=== PATIENT | male | born 1950 | race Caucasian/White ===

== ENCOUNTER 2020-04-22 09:07 | Outpatient (REF) | payer MEDICARE, SELFPAY ==
[2020-04-22 10:18] LABS: MANUAL DIFF FLAG NO
[2020-04-22 10:24] LABS: Basophils Absolute Auto 0.1 X10*3/uL (0.0-0.2); Basophils Percent Auto 0.9 % (0-2); Eosinophils Absolute Auto 0.6 X10*3/uL (0.0-0.4); Eosinophils Percent Auto 4.8 % (0-4); Hematocrit 42.8 % (42-52); Hemoglobin 13.5 g/dl (14.0-18.0); Imm Gran Abs Auto 0.06 X10*3/uL (0.00-0.03); Imm Gran Pct Auto 0.5 % (0.0-0.4); Lymphocytes Absolute Auto 1.9 X10*3/uL (1.2-4.9); Lymphocytes Percent Auto 15.1 % (20-40); Mean Corpuscular HGB Conc 31.5 g/dl (31.0-36.0); Mean Corpuscular Hemoglobin 29.2 pg (27.0-33.0); Mean Corpuscular Volume 92.6 fL (80-98); Mean Platelet Volume 11.2 fL (9.4-12.4); Monocytes Percent Auto 7.9 % (2-11); Neutrophils Absolute Auto 8.9 X10*3/uL (2.0-8.3); Neutrophils Percent Auto 70.8 % (45-73); Platelet Count 252 X10*3/uL (160-400); Red Blood Count 4.62 X10*6/uL (4.60-5.80); Red Cell Distribution Width 13.3 % (11.0-16.0); White Blood Count 12.6 X10*3/uL (4.8-10.8)
[2020-04-22 11:00] LABS: Alanine Aminotransferase 16 U/L (0-40); Albumin Level 4.3 g/dL (3.5-5.0); Alkaline Phosphatase 83 U/L (39-117); Anion Gap 14 (12-20); Aspartate Amino Transferase 15 U/L (5-37); Bilirubin Total 0.2 mg/dL (0.0-1.0); Blood Urea Nitrogen 19 mg/dL (9-16); Calcium 9.4 mg/dL (8.4-10.2); Carbon Dioxide 38 mmol/L (22-29); Chloride 93 mmol/L (96-108); Cholesterol 237 mg/dL; Estimated Glomerular Filt Rate > 60; Glucose Fasting 104 mg/dL (60-99); HDL Cholesterol 40 mg/dL; LDL Cholesterol Calculated 151 mg/dl; Potassium 4.5 mmol/l (3.3-5.1); Sodium 140 mmol/L (135-145); Total Protein 6.7 g/dL (6.5-8.0); Triglycerides 231 mg/dL
== END 2020-04-22 09:08 | disposition home or self-care (01) ==
LOC: HO.LAB 09:07
PROVIDERS: PCP Internal Medicine; Visit Provider Internal Medicine
DX: E11.9 Type 2 diabetes mellitus without complications (principal); I48.91 Unspecified atrial fibrillation
CPT/HCPCS: 36415; 80053; 80061; 85025

== ENCOUNTER 2020-05-15 13:09 | Outpatient (REF) | payer MEDICARE, SELFPAY ==
--- NOTE | 2020-05-15 14:06 | XR_ITS ---
EXAMINATION: XR CHEST CLINICAL INFORMATION: COPD. COMPARISON: None TECHNIQUE: 2 views of the chest were obtained. FINDINGS: The lungs are well-expanded with right CP angle pleural thickening and right basilar atelectasis. Heart size and vascularity is normal. No gross bony abnormality seen. XR/XR chest 2V IMPRESSION: Mild right CP angle pleural thickening with right basilar atelectasis. No acute process seen in the chest.
== END 2020-05-15 13:10 | disposition home or self-care (01) ==
LOC: HO.XRAY 13:09
PROVIDERS: Absent Provider Internal Medicine; PCP Internal Medicine; Visit Provider Internal Medicine
DX: J44.9 Chronic obstructive pulmonary disease, unspecified (principal); R09.02 Hypoxemia; F17.210 Nicotine dependence, cigarettes, uncomplicated; I48.91 Unspecified atrial fibrillation; Z79.899 Other long term (current) drug therapy; Z99.81 Dependence on supplemental oxygen
CPT/HCPCS: 71046

== ENCOUNTER 2020-05-28 10:50 | Outpatient (REF) | payer BC, SELFPAY ==
--- NOTE | 2020-05-28 17:27 | PFT_ITS ---
FLOWS: FEV1 of 36% of predicted at 1.12 L. FVC 79% of predicted at 3.31 L. FEV1 to FVC ratio of 0.34. Positive bronchodilator response. LUNG VOLUMES: Total lung capacity 107% of predicted at 7.15 L. Residual volume 173% of predicted at 3.98 L. Slow vital capacity 73% of predicted at 3.16 L. Expiratory reserve volume 117% of predicted at 1.39 L. Diffusion capacity is severely decreased, diffusion capacity adjust to being moderately decreased after correction for alveolar ventilation. IMPRESSION: Severe to very severe obstructive ventilatory defect with positive bronchodilator response. Increased residual volume suggests air trapping. Decreased diffusion capacity suggests emphysema. Ino Chávez MD AP/MOD[facility] / [id number]
== END 2020-05-28 10:51 | disposition home or self-care (01) ==
LOC: HO.RESP 10:50
PROVIDERS: PCP Internal Medicine; Visit Provider Internal Medicine
DX: J44.9 Chronic obstructive pulmonary disease, unspecified (principal)
CPT/HCPCS: 94060; 94727; 94729

== ENCOUNTER → 2020-06-05 13:35 | Outpatient (BNVA) | payer BC, SELFPAY | PROVIDERS: PCP Internal Medicine; Visit Provider Internal Medicine | DX: Z13.89 Encounter for screening for other disorder (principal) ==

== ENCOUNTER 2020-06-28 08:47 | Outpatient (REF) | payer MEDICARE, SELFPAY ==
--- NOTE | 2020-06-28 08:54 | US_ITS ---
EXAMINATION: US ABDOMEN COMPLETE CLINICAL INFORMATION: Abdominal pain. COMPARISON: CT abdomen and pelvis 11/17/2019 TECHNIQUE: Real-time imaging of the abdominal viscera. FINDINGS: PANCREAS: Normal. ABDOMINAL AORTA: The proximal, mid, and distal segments are normal in caliber. INFERIOR VENA CAVA: Visualized portions are normal. LIVER: The liver is normal in size. The liver contour is normal. Parenchymal echogenicity is normal. No focal hepatic lesion. There is no intrahepatic biliary duct dilatation seen. GALLBLADDER: The gallbladder is distended with wall thickness measuring 0.19 cm. The gallbladder is physiologically distended without evidence of stones, sludge, polyps, wall thickening or pericholecystic fluid. COMMON BILE DUCT: Normal in caliber measuring 0.40 cm in diameter. RIGHT KIDNEY: Normal. No hydronephrosis. No renal calculi or focal parenchymal lesions. The kidney measures 10.9 cm in maximum dimension. LEFT KIDNEY: Normal. No hydronephrosis. No renal calculi or focal parenchymal lesions. The kidney measures 11.1 cm in maximum dimension. SPLEEN: Normal. The spleen measures 9.1 cm in maximum dimension. FREE FLUID: None. US/US abdomen complete IMPRESSION: Distended gallbladder without echogenic stones. The rest of the abdominal ultrasound is unremarkable.
[2020-06-28 11:49] LABS: Basophils Absolute Auto 0.1 X10*3/uL (0.0-0.2); Basophils Percent Auto 0.5 % (0-2); Eosinophils Absolute Auto 0.1 X10*3/uL (0.0-0.4); Eosinophils Percent Auto 0.5 % (0-4); Hematocrit 30.1 % (42-52); Hemoglobin 9.4 g/dl (14.0-18.0); Lymphocytes Absolute Auto 1.5 X10*3/uL (1.2-4.9); Lymphocytes Percent Auto 7.5 % (20-40); MANUAL DIFF FLAG SCAN; Mean Corpuscular HGB Conc 31.2 g/dl (31.0-36.0); Mean Corpuscular Hemoglobin 28.7 pg (27.0-33.0); Mean Platelet Volume 11.5 fL (9.4-12.4); Monocytes Absolute Auto 1.6 X10*3/uL (0.1-1.2); Neutrophils Absolute Auto 16.3 X10*3/uL (2.0-8.3); Neutrophils Percent Auto 82.5 % (45-73); Platelet Count 367 X10*3/uL (160-400); Red Blood Count 3.27 X10*6/uL (4.60-5.80); Red Cell Distribution Width 14.2 % (11.0-16.0); SCAN SMEAR FLAG 1; White Blood Count 19.7 X10*3/uL (4.8-10.8)
[2020-06-28 12:13] LABS: Anion Gap 18 (12-20); Blood Urea Nitrogen 45 mg/dL (9-16); Calcium 8.5 mg/dL (8.4-10.2); Carbon Dioxide 28 mmol/L (22-29); Chloride 95 mmol/L (96-108); Estimated Glomerular Filt Rate 47; Glucose Random 106 mg/dL (60-115); Potassium 5.1 mmol/l (3.3-5.1); Sodium 136 mmol/L (135-145)
[2020-06-28 12:35] LABS: SLIDE REVIEW VERIFIED
[2020-06-28 14:06] LABS: Glucose Urine UA NEG (NEG); Leukocyte Esterase Urine NEG (NEG); Nitrite Urine NEG (NEG); Specific Gravity - Urine 1.025 (1.005-1.025); Urine Blood NEG (NEG); Urine Ketones 5 MG/DL (NEG); Urine Protein NEG (NEG-TRACE)
[2020-06-28 14:19] LABS: Appearance Urine CLEAR; Color Urine YELLOW
== END 2020-06-28 08:48 | disposition home or self-care (01) ==
LOC: HO.HMGCX 08:47
PROVIDERS: PCP Internal Medicine; Visit Provider Internal Medicine
DX: Z00.00 Encounter for general adult medical examination without abnormal findings (principal); N39.0 Urinary tract infection, site not specified; R10.9 Unspecified abdominal pain; R51.9 Headache, unspecified
CPT/HCPCS: 36415; 76700; 80048; 81003; 85025

== ENCOUNTER 2020-07-01 08:35 | Inpatient (IN) | payer MEDICARE, SELFPAY ==
[2020-07-01] VITALS (26 sets, daily range): BP systolic 83–128; BP diastolic 28–65; PULSE 27–88; RESP 16–79; TEMP 36.1–37.2; O2SAT 80–100; BMI 28.3
--- NOTE | 2020-07-01 | XR_ITS ---
EXAMINATION: PORTABLE CHEST 1 VIEW CLINICAL INFORMATION: Pacemaker . COMPARISON: 07/01/2020. TECHNIQUE: Portable frontal view of the chest was obtained. FINDINGS: Lungs are mildly hypoexpanded with basilar markings more likely reflecting a component of atelectasis superimposed overlying soft tissues. The hand and arm overlie the basilar chest on this view. Tiny right effusion is likely present, similar to earlier today. No overt edema or pneumothorax. Cardiac and mediastinal silhouettes within normal limits for size with vascular calcification in the tortuous aorta. There is been interval placement of a dual lead pacemaker with lead tips overlying the expected right atrium and right ventricle. Degenerative changes in the spine and shoulders. XR/XR chest 1V IMPRESSION: New dual-lead pacemaker is described. Basilar markings likely reflecting some atelectasis and tiny right effusion.
--- NOTE | 2020-07-01 08:55 | XR_ITS ---
EXAMINATION: XR CHEST CLINICAL INFORMATION: Shortness of breath COMPARISON: Previous chest x-ray May 2020 TECHNIQUE: Multiple AP supine portable chest x-rays were performed during advancement of pacemaker. FINDINGS: There is a right jugular line. There is an external temporary pacemaker lead projecting over the cardiac apex on the most final image. The heart is enlarged. Hilar and mediastinal contours are unremarkable. There is a subsegmental atelectasis at the right lung base. Left lung is partially obscured due to chest wall pacemaker has but appears clear. There is blunting at the right lateral costophrenic angle questionable for a small right pleural effusion. There is no pneumothorax. XR/XR chest 1V IMPRESSION: Right jugular pacemaker lead projects over the ventricular apex. Enlarged cardiac silhouette. Atelectasis at the right lung base and small right pleural effusion. No pneumothorax.
--- NOTE | 2020-07-01 08:55 | ECG_ITS ---
Test Reason : WEAKNESS Blood Pressure : / mmHG Vent. Rate : 030 BPM Atrial Rate : 032 BPM P-R Int : 000 ms QRS Dur : 138 ms QT Int : 602 ms P-R-T Axes : 000 -64 004 degrees QTc Int : 425 ms Idioventricular rhythm Sinus rhythm with complete Heart block Abnormal ECG When compared with ECG of 17-NOV-2019 10:51, Idioventricular rhythm has replaced Atrial fibrillation Vent. rate has decreased BY 70 BPM Referred By: Surekha Fernandez Electronically Signed By:BECK GUZMAN
[2020-07-01] MEDS: Magnesium Sulfate/H2O 2 GM/50 ML PIGGYBACK IV (09:15)
[2020-07-01] MEDS: Calcium Gluconate/NaCl,Iso-Osm 2 GM/100 ML PLAST..BAG IV (09:15)
[2020-07-01 09:24] LABS: MANUAL DIFF FLAG NO
[2020-07-01 09:26] LABS: Basophils Absolute Auto 0.2 X10*3/uL (0.0-0.2); Eosinophils Absolute Auto 0.3 X10*3/uL (0.0-0.4); Eosinophils Percent Auto 1.7 % (0-4); Hematocrit 26.9 % (42-52); Hemoglobin 8.5 g/dl (14.0-18.0); Imm Gran Abs Auto 0.19 X10*3/uL (0.00-0.03); Imm Gran Pct Auto 1.2 % (0.0-0.4); Lymphocytes Absolute Auto 1.8 X10*3/uL (1.2-4.9); Mean Corpuscular HGB Conc 31.6 g/dl (31.0-36.0); Mean Corpuscular Hemoglobin 29.6 pg (27.0-33.0); Mean Corpuscular Volume 93.7 fL (80-98); Mean Platelet Volume 11.1 fL (9.4-12.4); Monocytes Absolute Auto 1.2 X10*3/uL (0.1-1.2); Monocytes Percent Auto 7.8 % (2-11); Neutrophils Absolute Auto 11.7 X10*3/uL (2.0-8.3); Neutrophils Percent Auto 76.3 % (45-73); Platelet Count 464 X10*3/uL (160-400); Red Blood Count 2.87 X10*6/uL (4.60-5.80); Red Cell Distribution Width 14.5 % (11.0-16.0); White Blood Count 15.3 X10*3/uL (4.8-10.8)
[2020-07-01 09:31] LABS: INTERNATIONAL NORM RATIO 2.1 (0.9-1.1); Prothrombin Time 24.9 SEC (10.8-13.0)
[2020-07-01 09:34] LABS: Partial Thromboplastin Time 42.6 SEC (24.1-38.0)
[2020-07-01 09:51] LABS: Alanine Aminotransferase 64 U/L (0-40); Albumin Level 3.5 g/dL (3.5-5.0); Alkaline Phosphatase 108 U/L (39-117); Anion Gap 20 (12-20); Aspartate Amino Transferase 33 U/L (5-37); Bilirubin Direct 0.2 mg/dL (0.0-0.5); Bilirubin Total 0.3 mg/dL (0.0-1.0); Blood Urea Nitrogen 66 mg/dL (9-16); Calcium 8.6 mg/dL (8.4-10.2); Carbon Dioxide 24 mmol/L (22-29); Chloride 97 mmol/L (96-108); Estimated Glomerular Filt Rate 40; Glucose Random 144 mg/dL (60-115); Lactate Dehydrogenase 136 U/L (118-273); Lipase 9 U/L (8-78); Magnesium 2.8 mg/dL (1.6-2.6); Potassium 5.5 mmol/l (3.3-5.1); Sodium 135 mmol/L (135-145); Total Protein 6.3 g/dL (6.5-8.0)
[2020-07-01 09:54] LABS: B Type Natriuretic Peptide 2610 pg/mL (<100); Troponin-I High Sensitivity 32.2 ng/L (<3.5-35.0)
[2020-07-01 09:56] LABS: Lactic Acid 3.4 mmol/L (0.5-2.0)
[2020-07-01 10:07] LABS: Influenza A PCR NEGATIVE (Negative); Influenza B PCR NEGATIVE (Negative); Resp Syncy Virus RNA Qual PCR NEGATIVE (Negative); SARS COV2 PCR INHOUSE NEGATIVE (Negative)
--- NOTE | 2020-07-01 10:07 | ED.SOB ---
HPI - SOB/Dyspnea General Chief Complaint: Recheck/Abnormal Lab/Rx <JOHNNIE Kong - Last Filed: 07/01/20 11:02> Stated Complaint: DIFF BREATHING,ANEMIC <JOHNNIE Kong - Last Filed: 07/01/20 11:02> Time Seen by Provider: 07/01/20 08:45 <JOHNNIE Kong - Last Filed: 07/01/20 11:02> Source: patient <JOHNNIE Kong - Last Filed: 07/01/20 11:02> Mode of arrival: ambulatory <JOHNNIE Kong - Last Filed: 07/01/20 11:02> History of Present Illness HPI Narrative: 70-year-old male with a past medical history of AFib on Eliquis a/P ablation at [facility] 3 months ago, COPD on home O2, hypoxemia, presenting to the ED complaining worsening SOB x6 months. Admits saw PCP few days ago on was instructed to come to the ED due to anemia/abnormal labs. Reports chronic cough. Denies fever, recent illness, chest pain, abdominal pain, nausea/vomiting, LE edema, recent travel, melena/bloody BMs, hematochezia <JOHNNIE Kong - Last Filed: 07/01/20 11:02> MD elicited complaint: shortness of breath <JOHNNIE Kong Last Filed: 07/01/20 11:02> Related Data Home Medications: Home Medications Medication Instructions Recorded Confirmed albuterol sulfate 90 mcg/actuation 2 puff INHALATION Q4H PRN 04/19/20 07/01/20 aerosol inhaler apixaban 5 mg tablet 5 mg PO BID 04/19/20 07/01/20 budesonide-formoterol HFA 80 2 inh INHALATION BID 04/19/20 07/01/20 mcg-4.5 mcg/actuation aerosol inhaler magnesium oxide 400 mg (241.3 mg 400 mg PO DAILY 04/19/20 07/01/20 magnesium) tablet metoprolol tartrate 50 mg tablet 75 mg PO TID 04/19/20 07/01/20 spironolactone 25 mg tablet 12.5 mg PO DAILY 04/19/20 07/01/20 tiotropium bromide 18 mcg capsule 1 cap INHALATION DAILY 04/19/20 07/01/20 with inhalation device torsemide 20 mg tablet 60 mg PO BID 04/19/20 07/01/20 lisinopril 5 mg tablet 2.5 mg PO DAILY tab 05/15/20 07/01/20 multivitamin 1 tab PO DAILY 06/05/20 07/01/20 Previous Rx's Medication Instructions Recorded varenicline 1 mg tablet 1 mg PO BID 28 Days #56 tab 06/05/20 dicyclomine 20 mg tablet 20 mg PO QID #30 tab 06/17/20 <JOHNNIE Kong - Last Filed: 07/01/20 11:02> Allergies/Adverse Reactions: Allergies Allergy/AdvReac Type Severity Reaction Status Date / Time No Known Allergies Allergy Verified 06/05/20 13:37 [No Known Allergies*] <JOHNNIE Kong Last Filed: 07/01/20 11:02> Review of Systems Review of Systems: Constitutional: No Weight loss, No Fever, No Chills, + Fatigue, No Malaise Cardiovascular: No Chest Pain, + SOB, + Dyspnea on Exertion, + Orthopnea Respiratory: + Cough, No Sputum, + Wheezing, +Dyspnea Gastrointestinal: No Nausea, No Vomiting, No Diarrhea, No Constipation, No Abdominal pain Genitourinary: No irregular bleeding, No Dysuria Musculoskeletal: No joint pain, No Myalgias, No Joint Swelling Skin: No Skin Lesions, No rash <JOHNNIE Kong Last Filed: 07/01/20 11:02> Yes all other systems are reviewed and are negative <JOHNNIE Kong Last Filed: 07/01/20 11:02> [facility] Past Medical History Attestation statement: The following information was validated with the patient. <JOHNNIE Kong - Last Filed: 07/01/20 11:02> Medical History: Medical History Atrial fibrillation COPD (chronic obstructive pulmonary disease) COPD (chronic obstructive pulmonary disease) Hypoxemia Paroxysmal atrial fibrillation Smoker <JOHNNIE Kong - Last Filed: 07/01/20 11:02> Family History Family History: Family History Father No problems noted. Mother No problems noted. <JOHNNIE Kong Last Filed: 07/01/20 11:02> Social History Social History: Social History Alcohol intake: current Alcohol intake frequency: a few times a month Smoking Status: Current every day smoker Tobacco Type: Cigarette Cigarettes Per Day: 10 Advance Directives: No Advance Directives Information Provided: No <JOHNNIE Kong - Last Filed: 07/01/20 11:02> Physical Exam Vital Signs: Vital Signs: Last Vital Signs Temp 97 F 07/01/20 08:45 Pulse 28 L 07/01/20 08:45 Resp 32 H 07/01/20 08:45 BP 98/28 L 07/01/20 08:45 Pulse Ox 80 L 07/01/20 08:45 Body Mass Index 28.3 <JOHNNIE Kong - Last Filed: 07/01/20 11:02> Vital Signs: Last Vital Signs Temp 97 F 07/01/20 08:45 Pulse 28 L 07/01/20 08:45 Resp 32 H 07/01/20 08:45 BP 98/28 L 07/01/20 08:45 Pulse Ox 80 L 07/01/20 08:45 Body Mass Index 28.3 <Kalie Garcia DO - Last Filed: 07/01/20 11:08> Const: General: cooperative <JOHNNIE Kong - Last Filed: 07/01/20 11:02> Orientation/consciousness: patient oriented x3 <JOHNNIE Kong - Last Filed: 07/01/20 11:02> Limitations: no limitations <JOHNNIE Kong - Last Filed: 07/01/20 11:02> HENMT: Head: Yes normal to inspection <JOHNNIE Kong - Last Filed: 07/01/20 11:02> Ears: hearing grossly normal bilaterally <JOHNNIE Kong - Last Filed: 07/01/20 11:02> General nose exam: Normal external nose present <JOHNNIE Kong - Last Filed: 07/01/20 11:02> Face and sinus: Yes normal facial exam <JOHNNIE Kong - Last Filed: 07/01/20 11:02> Eyes: General: appearance normal, both eyes and all related structures <JOHNNIE Kong - Last Filed: 07/01/20 11:02> EOM: EOMs intact bilaterally <Surekha Fernandez PA - Last Filed: 07/01/20 11:02> Neck: Neck: Yes normal visual inspection and Yes no meningeal signs <Surekha Fernandez PA - Last Filed: 07/01/20 11:02> Resp: Effort & Inspection: labored and tachypneic <Surekha Fernandez PA - Last Filed: 07/01/20 11:02> Auscultation: wheezes expiratory wheezes and diminished lung sounds diffuse <Surekha Fernandez PA - Last Filed: 07/01/20 11:02> Cardio: Rate: bradycardic <Surekha Fernandez UT - Last Filed: 07/01/20 11:02> GI: Inspection: Yes normal to inspection <Surekha Fernandez [place] - Last Filed: 07/01/20 11:02> Palpation (GI): Soft to palpation, nontender, no guarding and not rigid <Surekha Fernandez UT - Last Filed: 07/01/20 11:02> Skin: Rashes: no rashes <Surekha Fernandez UT - Last Filed: 07/01/20 11:02> Wounds: no wounds <Surekha Fernandez UT - Last Filed: 07/01/20 11:02> Neuro: General: patient oriented x3 and no meningeal signs <Surekha Fernandez UT - Last Filed: 07/01/20 11:02> Gait exam (Neuro): Normal gait present <Surekha Fernandez UT - Last Filed: 07/01/20 11:02> Extrem: Other: No LE edema <Surekha Fernandez UT - Last Filed: 07/01/20 11:02> Course Course Course Narrative: Case discussed with Cardiology, Dr. Shukla immediately after EKG printed. he is evaluating patient in the emergency department along with ICU attending Dr. Taylor. Patient's blood pressure initially stable then dropped, 0.5 mg of atropine ordered, ED attending placing transvenous pacer <Surekha Fernandez UT - Last Filed: 07/01/20 11:02> Procedures Procedure Narrative Procedure Narrative: emergently placed R IJ catheter under US guidance and full sterile precautions - no issues tolerated well, then with ICU at bedside used transvenous wire and placed at 47cm with good capture at 80 balloon deflated - BP improved, repeat CXR to confirm placement done, no complications, biopatch and sterile dressing placed <Kalie Garcia DO - Last Filed: 07/01/20 11:08> MDM - SOB/Dyspnea MDM Narrative Medical decision making narrative: 70-year-old male with a past medical history of AFib on Eliquis a/P ablation at [facility] 3 months ago, COPD on home O2, hypoxemia, presenting to the ED complaining worsening SOB x6 months. On exam in mild respiratory distress with tachypnea, decreased breath sounds/expiratory wheeze, heart rate low in 30s, EKG showing a third-degree heart block. Cardiology immediately paged. Patient placed on monitor IV glucose chin and calcium gluconate ordered. Concern for arrhythmia with superimposed COPD exacerbation. Lower concern for GI bleed Plan: EKG, labs, CXR, IV Solu-Medrol/magnesium/DuoNeb <JOHNNIE Kong - Last Filed: 07/01/20 11:02> Differential Diagnosis Differential diagnosis: Likely acute exacerbation of chronic obstructive airways disease, congestive heart failure and pneumonia <JOHNNIE Kong - Last Filed: 07/01/20 11:02> Medical Records Attestation: I reviewed the patient's medical records. <JOHNNIE Kong - Last Filed: 07/01/20 11:02> Lab Data Attestation: I reviewed the patient's lab results. <JOHNNIE Kong - Last Filed: 07/01/20 11:02> Result diagrams: : 07/01/20 09:12 07/01/20 09:12 <JOHNNIE Kong - Last Filed: 07/01/20 11:02> Labs: Lab Results 07/01/20 07/01/20 07/01/20 Range/Units 09:10 09:10 09:12 WBC 15.3 H (4.8-10.8) X10*3/uL RBC 2.87 L (4.60-5.80) X10*6/uL Hgb 8.5 L (14.0-18.0) g/dl Hct 26.9 L (42-52) % MCV 93.7 (80-98) fL MCH 29.6 (27.0-33.0) pg MCHC 31.6 (31.0-36.0) g/dl RDW 14.5 (11.0-16.0) % Plt Count 464 H D (160-400) X10*3/uL MPV 11.1 (9.4-12.4) fL Immature Gran % (Auto) 1.2 H (0.0-0.4) % Neut % (Auto) 76.3 H (45-73) % Lymph % (Auto) 12.0 L (20-40) % [place] % (Auto) 7.8 (2-11) % Eos % (Auto) 1.7 (0-4) % Baso % (Auto) 1.0 (0-2) % Lymph # (Auto) 1.8 (1.2-4.9) X10*3/uL [place] # (Auto) 1.2 (0.1-1.2) X10*3/uL Eos # (Auto) 0.3 (0.0-0.4) X10*3/uL Baso # (Auto) 0.2 (0.0-0.2) X10*3/uL Abs Immat Gran (auto) 0.19 H (0.00-0.03) X10*3/uL Absolute Neuts (auto) 11.7 H (2.0-8.3) X10*3/uL Absolute Nucleated RBC 0.000 (0.0-0.012) X10*3/uL Nucleated RBC % (auto) 0.0 (0.0-0.2) /100WBC PT 24.9 H (10.8-13.0) SEC INR 2.1 H (0.9-1.1) APTT 42.6 H (24.1-38.0) SEC Sodium (135-145) mmol/L Potassium (3.3-5.1) mmol/l Chloride (96-108) mmol/L Carbon Dioxide (22-29) mmol/L Anion Gap (12-20) BUN (9-16) mg/dL Creatinine (0.5-1.4) mg/dL Estim Creat Clear Calc Estimated GFR Random Glucose (60-115) mg/dL Lactic Acid (0.5-2.0) mmol/L Calcium (8.4-10.2) mg/dL Magnesium (1.6-2.6) mg/dL Ferritin (20-250) ng/mL Total Bilirubin (0.0-1.0) mg/dL Direct Bilirubin (0.0-0.5) mg/dL AST (5-37) U/L ALT (0-40) U/L Alkaline Phosphatase (39-117) U/L Lactate Dehydrogenase (118-273) U/L Troponin I High Sens (<3.5-35.0) ng/L B-Natriuretic Peptide (<100) pg/mL Total Protein (6.5-8.0) g/dL Albumin (3.5-5.0) g/dL Lipase (8-78) U/L Procalcitonin 0.22 ng/mL Coronavirus (PCR) (Negative) Influenza Type A (PCR) (Negative) Influenza Type B (PCR) (Negative) RSV RNA Qual (PCR) (Negative) 07/01/20 07/01/20 07/01/20 Range/Units 09:12 09:12 09:12 WBC (4.8-10.8) X10*3/uL RBC (4.60-5.80) X10*6/uL Hgb (14.0-18.0) g/dl Hct (42-52) % MCV (80-98) fL MCH (27.0-33.0) pg MCHC (31.0-36.0) g/dl RDW (11.0-16.0) % Plt Count (160-400) X10*3/uL MPV (9.4-12.4) fL Immature Gran % (Auto) (0.0-0.4) % Neut % (Auto) (45-73) % Lymph % (Auto) (20-40) % [place] % (Auto) (2-11) % Eos % (Auto) (0-4) % Baso % (Auto) (0-2) % Lymph # (Auto) (1.2-4.9) X10*3/uL [place] # (Auto) (0.1-1.2) X10*3/uL Eos # (Auto) (0.0-0.4) X10*3/uL Baso # (Auto) (0.0-0.2) X10*3/uL Abs Immat Gran (auto) (0.00-0.03) X10*3/uL Absolute Neuts (auto) (2.0-8.3) X10*3/uL Absolute Nucleated RBC (0.0-0.012) X10*3/uL Nucleated RBC % (auto) (0.0-0.2) /100WBC PT (10.8-13.0) SEC INR (0.9-1.1) APTT (24.1-38.0) SEC Sodium 135 (135-145) mmol/L Potassium 5.5 H (3.3-5.1) mmol/l Chloride 97 (96-108) mmol/L Carbon Dioxide 24 (22-29) mmol/L Anion Gap 20 (12-20) BUN 66 H (9-16) mg/dL Creatinine 1.72 H (0.5-1.4) mg/dL Estim Creat Clear Calc TNP Estimated GFR 40 Random Glucose 144 H D (60-115) mg/dL Lactic Acid 3.4 H* (0.5-2.0) mmol/L Calcium 8.6 (8.4-10.2) mg/dL Magnesium 2.8 H (1.6-2.6) mg/dL Ferritin (20-250) ng/mL Total Bilirubin 0.3 (0.0-1.0) mg/dL Direct Bilirubin 0.2 (0.0-0.5) mg/dL AST 33 D (5-37) U/L ALT 64 H (0-40) U/L Alkaline Phosphatase 108 D (39-117) U/L Lactate Dehydrogenase 136 (118-273) U/L Troponin I High Sens 32.2 (<3.5-35.0) ng/L B-Natriuretic Peptide 2610 H (<100) pg/mL Total Protein 6.3 L (6.5-8.0) g/dL Albumin 3.5 (3.5-5.0) g/dL Lipase 9 (8-78) U/L Procalcitonin ng/mL Coronavirus (PCR) (Negative) Influenza Type A (PCR) (Negative) Influenza Type B (PCR) (Negative) RSV RNA Qual (PCR) (Negative) 07/01/20 07/01/20 Range/Units 09:12 09:12 WBC (4.8-10.8) X10*3/uL RBC (4.60-5.80) X10*6/uL Hgb (14.0-18.0) g/dl Hct (42-52) % MCV (80-98) fL MCH (27.0-33.0) pg MCHC (31.0-36.0) g/dl RDW (11.0-16.0) % Plt Count (160-400) X10*3/uL MPV (9.4-12.4) fL Immature Gran % (Auto) (0.0-0.4) % Neut % (Auto) (45-73) % Lymph % (Auto) (20-40) % [place] % (Auto) (2-11) % Eos % (Auto) (0-4) % Baso % (Auto) (0-2) % Lymph # (Auto) (1.2-4.9) X10*3/uL [place] # (Auto) (0.1-1.2) X10*3/uL Eos # (Auto) (0.0-0.4) X10*3/uL Baso # (Auto) (0.0-0.2) X10*3/uL Abs Immat Gran (auto) (0.00-0.03) X10*3/uL Absolute Neuts (auto) (2.0-8.3) X10*3/uL Absolute Nucleated RBC (0.0-0.012) X10*3/uL Nucleated RBC % (auto) (0.0-0.2) /100WBC PT (10.8-13.0) SEC INR (0.9-1.1) APTT (24.1-38.0) SEC Sodium (135-145) mmol/L Potassium (3.3-5.1) mmol/l Chloride (96-108) mmol/L Carbon Dioxide (22-29) mmol/L Anion Gap (12-20) BUN (9-16) mg/dL Creatinine (0.5-1.4) mg/dL Estim Creat Clear Calc Estimated GFR Random Glucose (60-115) mg/dL Lactic Acid (0.5-2.0) mmol/L Calcium (8.4-10.2) mg/dL Magnesium (1.6-2.6) mg/dL Ferritin 268 H (20-250) ng/mL Total Bilirubin (0.0-1.0) mg/dL Direct Bilirubin (0.0-0.5) mg/dL AST (5-37) U/L ALT (0-40) U/L Alkaline Phosphatase (39-117) U/L Lactate Dehydrogenase (118-273) U/L Troponin I High Sens (<3.5-35.0) ng/L B-Natriuretic Peptide (<100) pg/mL Total Protein (6.5-8.0) g/dL Albumin (3.5-5.0) g/dL Lipase (8-78) U/L Procalcitonin ng/mL Coronavirus (PCR) NEGATIVE (Negative) Influenza Type A (PCR) NEGATIVE (Negative) Influenza Type B (PCR) NEGATIVE (Negative) RSV RNA Qual (PCR) NEGATIVE (Negative) <JOHNNIE Kong - Last Filed: 07/01/20 11:02> Lab Results 07/01/20 07/01/20 07/01/20 Range/Units 09:10 09:10 09:12 WBC 15.3 H (4.8-10.8) X10*3/uL RBC 2.87 L (4.60-5.80) X10*6/uL Hgb 8.5 L (14.0-18.0) g/dl Hct 26.9 L (42-52) % MCV 93.7 (80-98) fL MCH 29.6 (27.0-33.0) pg MCHC 31.6 (31.0-36.0) g/dl RDW 14.5 (11.0-16.0) % Plt Count 464 H D (160-400) X10*3/uL MPV 11.1 (9.4-12.4) fL Immature Gran % (Auto) 1.2 H (0.0-0.4) % Neut % (Auto) 76.3 H (45-73) % Lymph % (Auto) 12.0 L (20-40) % [place] % (Auto) 7.8 (2-11) % Eos % (Auto) 1.7 (0-4) % Baso % (Auto) 1.0 (0-2) % Lymph # (Auto) 1.8 (1.2-4.9) X10*3/uL [place] # (Auto) 1.2 (0.1-1.2) X10*3/uL Eos # (Auto) 0.3 (0.0-0.4) X10*3/uL Baso # (Auto) 0.2 (0.0-0.2) X10*3/uL Abs Immat Gran (auto) 0.19 H (0.00-0.03) X10*3/uL Absolute Neuts (auto) 11.7 H (2.0-8.3) X10*3/uL Absolute Nucleated RBC 0.000 (0.0-0.012) X10*3/uL Nucleated RBC % (auto) 0.0 (0.0-0.2) /100WBC PT 24.9 H (10.8-13.0) SEC INR 2.1 H (0.9-1.1) APTT 42.6 H (24.1-38.0) SEC Sodium (135-145) mmol/L Potassium (3.3-5.1) mmol/l Chloride (96-108) mmol/L Carbon Dioxide (22-29) mmol/L Anion Gap (12-20) BUN (9-16) mg/dL Creatinine (0.5-1.4) mg/dL Estim Creat Clear Calc Estimated GFR Random Glucose (60-115) mg/dL Lactic Acid (0.5-2.0) mmol/L Calcium (8.4-10.2) mg/dL Magnesium (1.6-2.6) mg/dL Ferritin (20-250) ng/mL Total Bilirubin (0.0-1.0) mg/dL Direct Bilirubin (0.0-0.5) mg/dL AST (5-37) U/L ALT (0-40) U/L Alkaline Phosphatase (39-117) U/L Lactate Dehydrogenase (118-273) U/L Troponin I High Sens (<3.5-35.0) ng/L B-Natriuretic Peptide (<100) pg/mL Total Protein (6.5-8.0) g/dL Albumin (3.5-5.0) g/dL Lipase (8-78) U/L Procalcitonin 0.22 ng/mL Coronavirus (PCR) (Negative) Influenza Type A (PCR) (Negative) Influenza Type B (PCR) (Negative) RSV RNA Qual (PCR) (Negative) 07/01/20 07/01/20 07/01/20 Range/Units 09:12 09:12 09:12 WBC (4.8-10.8) X10*3/uL RBC (4.60-5.80) X10*6/uL Hgb (14.0-18.0) g/dl Hct (42-52) % MCV (80-98) fL MCH (27.0-33.0) pg MCHC (31.0-36.0) g/dl RDW (11.0-16.0) % Plt Count (160-400) X10*3/uL MPV (9.4-12.4) fL Immature Gran % (Auto) (0.0-0.4) % Neut % (Auto) (45-73) % Lymph % (Auto) (20-40) % [place] % (Auto) (2-11) % Eos % (Auto) (0-4) % Baso % (Auto) (0-2) % Lymph # (Auto) (1.2-4.9) X10*3/uL [place] # (Auto) (0.1-1.2) X10*3/uL Eos # (Auto) (0.0-0.4) X10*3/uL Baso # (Auto) (0.0-0.2) X10*3/uL Abs Immat Gran (auto) (0.00-0.03) X10*3/uL Absolute Neuts (auto) (2.0-8.3) X10*3/uL Absolute Nucleated RBC (0.0-0.012) X10*3/uL Nucleated RBC % (auto) (0.0-0.2) /100WBC PT (10.8-13.0) SEC INR (0.9-1.1) APTT (24.1-38.0) SEC Sodium 135 (135-145) mmol/L Potassium 5.5 H (3.3-5.1) mmol/l Chloride 97 (96-108) mmol/L Carbon Dioxide 24 (22-29) mmol/L Anion Gap 20 (12-20) BUN 66 H (9-16) mg/dL Creatinine 1.72 H (0.5-1.4) mg/dL Estim Creat Clear Calc TNP Estimated GFR 40 Random Glucose 144 H D (60-115) mg/dL Lactic Acid 3.4 H* (0.5-2.0) mmol/L Calcium 8.6 (8.4-10.2) mg/dL Magnesium 2.8 H (1.6-2.6) mg/dL Ferritin (20-250) ng/mL Total Bilirubin 0.3 (0.0-1.0) mg/dL Direct Bilirubin 0.2 (0.0-0.5) mg/dL AST 33 D (5-37) U/L ALT 64 H (0-40) U/L Alkaline Phosphatase 108 D (39-117) U/L Lactate Dehydrogenase 136 (118-273) U/L Troponin I High Sens 32.2 (<3.5-35.0) ng/L B-Natriuretic Peptide 2610 H (<100) pg/mL Total Protein 6.3 L (6.5-8.0) g/dL Albumin 3.5 (3.5-5.0) g/dL Lipase 9 (8-78) U/L Procalcitonin ng/mL Coronavirus (PCR) (Negative) Influenza Type A (PCR) (Negative) Influenza Type B (PCR) (Negative) RSV RNA Qual (PCR) (Negative) 07/01/20 07/01/20 Range/Units 09:12 09:12 WBC (4.8-10.8) X10*3/uL RBC (4.60-5.80) X10*6/uL Hgb (14.0-18.0) g/dl Hct (42-52) % MCV (80-98) fL MCH (27.0-33.0) pg MCHC (31.0-36.0) g/dl RDW (11.0-16.0) % Plt Count (160-400) X10*3/uL MPV (9.4-12.4) fL Immature Gran % (Auto) (0.0-0.4) % Neut % (Auto) (45-73) % Lymph % (Auto) (20-40) % [place] % (Auto) (2-11) % Eos % (Auto) (0-4) % Baso % (Auto) (0-2) % Lymph # (Auto) (1.2-4.9) X10*3/uL [place] # (Auto) (0.1-1.2) X10*3/uL Eos # (Auto) (0.0-0.4) X10*3/uL Baso # (Auto) (0.0-0.2) X10*3/uL Abs Immat Gran (auto) (0.00-0.03) X10*3/uL Absolute Neuts (auto) (2.0-8.3) X10*3/uL Absolute Nucleated RBC (0.0-0.012) X10*3/uL Nucleated RBC % (auto) (0.0-0.2) /100WBC PT (10.8-13.0) SEC INR (0.9-1.1) APTT (24.1-38.0) SEC Sodium (135-145) mmol/L Potassium (3.3-5.1) mmol/l Chloride (96-108) mmol/L Carbon Dioxide (22-29) mmol/L Anion Gap (12-20) BUN (9-16) mg/dL Creatinine (0.5-1.4) mg/dL Estim Creat Clear Calc Estimated GFR Random Glucose (60-115) mg/dL Lactic Acid (0.5-2.0) mmol/L Calcium (8.4-10.2) mg/dL Magnesium (1.6-2.6) mg/dL Ferritin 268 H (20-250) ng/mL Total Bilirubin (0.0-1.0) mg/dL Direct Bilirubin (0.0-0.5) mg/dL AST (5-37) U/L ALT (0-40) U/L Alkaline Phosphatase (39-117) U/L Lactate Dehydrogenase (118-273) U/L Troponin I High Sens (<3.5-35.0) ng/L B-Natriuretic Peptide (<100) pg/mL Total Protein (6.5-8.0) g/dL Albumin (3.5-5.0) g/dL Lipase (8-78) U/L Procalcitonin ng/mL Coronavirus (PCR) NEGATIVE (Negative) Influenza Type A (PCR) NEGATIVE (Negative) Influenza Type B (PCR) NEGATIVE (Negative) RSV RNA Qual (PCR) NEGATIVE (Negative) <Kalie Garcia DO - Last Filed: 07/01/20 11:08> ECG Data Attestation: I personally reviewed and interpreted this ECG as follows: <JOHNNIE Kong - Last Filed: 07/01/20 11:02> ECG interpretation date: 07/01/20 <JOHNNIE Kong - Last Filed: 07/01/20 11:02> Interpretation: EKG with heart rate 30, third-degree AV block noted. No STEMI <JOHNNIE Kong - Last Filed: 07/01/20 11:02> Critical Care Time Critical Care Time Critical Care Time: Yes <JOHNNIE Kong - Last Filed: 07/01/20 11:02> Yes <Kalie Garcia DO - Last Filed: 07/01/20 11:08> Total Critical Care Time: 35 <JOHNNIE Kong - Last Filed: 07/01/20 11:02> 60 <Kalie Garcia DO - Last Filed: 07/01/20 11:08> Attestation: Critical care time greater than 35 minutes spent evaluating patient, reviewing labs/imaging, talking to consultants, and re-evaluating patient <JOHNNIE Kong - Last Filed: 07/01/20 11:02> placement of transvenous wire, cardiology and ICU consult, repeat assessments of respiratory status, O2 supplement with venti mask I attest to this time spent taking care of the patient <Kalie Garcia DO - Last Filed: 07/01/20 11:08> Discharge Plan Discharge Clinical Impression: CHB (complete heart block) COPD (chronic obstructive pulmonary disease) Qualifiers: COPD type: unspecified COPD Qualified Code(s): J44.9 - Chronic obstructive pulmonary disease, unspecified <JOHNNIE Kong Last Filed: 07/01/20 11:02> Patient Disposition: Admitted As Inpatient <JOHNNIE Kong Last Filed: 07/01/20 11:02>
[2020-07-01 10:09] LABS: Procalcitonin 0.22 ng/mL
[2020-07-01 10:10] LABS: Ferritin 268 ng/mL (20-250)
--- NOTE | 2020-07-01 10:16 | P.CONCA_ITS ---
History of Present Illness History of Present Illness Date of Service: 07/01/20 Consult reason: other (Heart block) Chief complaint: DIFF BREATHING,ANEMIC Narrative: We have been asked to see this patient regarding heart block. He currently goes to [facility] but he states that he is in the process of actually switching to our office. He has atrial fibrillation and apparently underwent atrial fibrillation ablation about 3 months ago at [facility]. Prior to that it seems that he might have undergone cardioversion but failed but we need to review the records. Otherwise patient takes high dose of beta-blockers at metoprolol 75 mg t.i.d. at home. He is also on Eliquis. Recently, he has been feeling very dizzy. He has also been having other complaints like abdominal pain. Generalized nonspecific fatigue. In the ER, he was found to be in complete heart block and hence we have been asked to see him. Review of Systems Review of Systems: Yes all other systems are reviewed and are negative Cardiovascular: Cardiovascular: Reports as per HPI, Denies chest pain, Denies chest pain at rest, Denies chest pain with activity, Denies leg edema, Reports lightheadedness, Denies Loss of Consciousness, Denies palpitations, Reports dyspnea and Reports dyspnea on exertion Respiratory: Respiratory: Reports dyspnea and Reports dyspnea on exertion Endocrine: Endocrine: Denies palpitations PMFSH Past Medical History Medical History Atrial fibrillation COPD (chronic obstructive pulmonary disease) COPD (chronic obstructive pulmonary disease) Hypoxemia Paroxysmal atrial fibrillation Smoker Family History Family History Father No problems noted. Mother No problems noted. Social History Social History Alcohol intake: current Alcohol intake frequency: a few times a month Smoking Status: Current every day smoker Tobacco Type: Cigarette Cigarettes Per Day: 10 Advance Directives: No Advance Directives Information Provided: No Meds Allergies Allergy/AdvReac Type Severity Reaction Status Date / Time No Known Allergies Allergy Verified 06/05/20 13:37 [No Known Allergies*] Home Medications Medication Instructions Recorded Confirmed Type albuterol sulfate 90 mcg/actuation 2 puff INHALATION Q4H PRN 04/19/20 07/01/20 History aerosol inhaler apixaban 5 mg tablet 5 mg PO BID 04/19/20 07/01/20 History budesonide-formoterol HFA 80 2 inh INHALATION BID 04/19/20 07/01/20 History mcg-4.5 mcg/actuation aerosol inhaler magnesium oxide 400 mg (241.3 mg 400 mg PO DAILY 04/19/20 07/01/20 History magnesium) tablet metoprolol tartrate 50 mg tablet 75 mg PO TID 04/19/20 07/01/20 History spironolactone 25 mg tablet 12.5 mg PO DAILY 04/19/20 07/01/20 History tiotropium bromide 18 mcg capsule 1 cap INHALATION DAILY 04/19/20 07/01/20 History with inhalation device torsemide 20 mg tablet 60 mg PO BID 04/19/20 07/01/20 History lisinopril 5 mg tablet 2.5 mg PO DAILY tab 05/15/20 07/01/20 History multivitamin 1 tab PO DAILY 06/05/20 07/01/20 History Physical Exam Const: General: cooperative, comfortable and no acute distress Orientation/consciousness: patient oriented x3 HENMT: Other: Unremarkable Neck: Neck: Yes normal visual inspection Chest: Chest palpation & inspection: normal inspection of the chest Resp: Auscultation: no crackles, rhonchi, wheezes and diminished lung sounds Cardio: Jugular venous distension: no JVD Palpation: normal PMI Heart sounds: S1 normal heart sound present, S2 normal heart sound present, no gallops, no murmurs and no rubs GI: Palpation (GI): Soft to palpation Back/Spine/Pelvis: Other: unremarkable Skin: General skin exam: no rashes or lesions noted Neuro: General: patient oriented x3 Extrem: General: Yes no clubbing, cyanosis or edema Psych: Mental Status: mental status grossly normal Results Labs and Meds Result diagrams: 07/01/20 09:12 07/01/20 09:12 Lab results: Laboratory Results - last 24 hr 07/01/20 07/01/20 07/01/20 09:10 09:10 09:12 WBC 15.3 H RBC 2.87 L Hgb 8.5 L Hct 26.9 L MCV 93.7 MCH 29.6 MCHC 31.6 RDW 14.5 Plt Count 464 H D MPV 11.1 Immature Gran % (Auto) 1.2 H Neut % (Auto) 76.3 H Lymph % (Auto) 12.0 L [place] % (Auto) 7.8 Eos % (Auto) 1.7 Baso % (Auto) 1.0 Lymph # (Auto) 1.8 [place] # (Auto) 1.2 Eos # (Auto) 0.3 Baso # (Auto) 0.2 Abs Immat Gran (auto) 0.19 H Absolute Neuts (auto) 11.7 H Absolute Nucleated RBC 0.000 Nucleated RBC % (auto) 0.0 PT 24.9 H INR 2.1 H APTT 42.6 H Sodium Potassium Chloride Carbon Dioxide Anion Gap BUN Creatinine Estim Creat Clear Calc Estimated GFR Random Glucose Lactic Acid Calcium Magnesium Ferritin Total Bilirubin Direct Bilirubin AST ALT Alkaline Phosphatase Lactate Dehydrogenase Troponin I High Sens B-Natriuretic Peptide Total Protein Albumin Lipase Procalcitonin 0.22 Coronavirus (PCR) Influenza Type A (PCR) Influenza Type B (PCR) RSV RNA Qual (PCR) 07/01/20 07/01/20 07/01/20 09:12 09:12 09:12 WBC RBC Hgb Hct MCV MCH MCHC RDW Plt Count MPV Immature Gran % (Auto) Neut % (Auto) Lymph % (Auto) [place] % (Auto) Eos % (Auto) Baso % (Auto) Lymph # (Auto) [place] # (Auto) Eos # (Auto) Baso # (Auto) Abs Immat Gran (auto) Absolute Neuts (auto) Absolute Nucleated RBC Nucleated RBC % (auto) PT INR APTT Sodium 135 Potassium 5.5 H Chloride 97 Carbon Dioxide 24 Anion Gap 20 BUN 66 H Creatinine 1.72 H Estim Creat Clear Calc TNP Estimated GFR 40 Random Glucose 144 H D Lactic Acid 3.4 H* Calcium 8.6 Magnesium 2.8 H Ferritin Total Bilirubin 0.3 Direct Bilirubin 0.2 AST 33 D ALT 64 H Alkaline Phosphatase 108 D Lactate Dehydrogenase 136 Troponin I High Sens 32.2 B-Natriuretic Peptide 2610 H Total Protein 6.3 L Albumin 3.5 Lipase 9 Procalcitonin Coronavirus (PCR) Influenza Type A (PCR) Influenza Type B (PCR) RSV RNA Qual (PCR) 07/01/20 07/01/20 09:12 09:12 WBC RBC Hgb Hct MCV MCH MCHC RDW Plt Count MPV Immature Gran % (Auto) Neut % (Auto) Lymph % (Auto) [place] % (Auto) Eos % (Auto) Baso % (Auto) Lymph # (Auto) [place] # (Auto) Eos # (Auto) Baso # (Auto) Abs Immat Gran (auto) Absolute Neuts (auto) Absolute Nucleated RBC Nucleated RBC % (auto) PT INR APTT Sodium Potassium Chloride Carbon Dioxide Anion Gap BUN Creatinine Estim Creat Clear Calc Estimated GFR Random Glucose Lactic Acid Calcium Magnesium Ferritin 268 H Total Bilirubin Direct Bilirubin AST ALT Alkaline Phosphatase Lactate Dehydrogenase Troponin I High Sens B-Natriuretic Peptide Total Protein Albumin Lipase Procalcitonin Coronavirus (PCR) NEGATIVE Influenza Type A (PCR) NEGATIVE Influenza Type B (PCR) NEGATIVE RSV RNA Qual (PCR) NEGATIVE ECG ECG interpretation date: 07/01/20 Interpretation: EKG shows ventricular escape rhythm at 30/Min. There is complete heart block. Atrial rhythm appears to be sinus at approximately 75/Min. From November of 2019, rhythm appears to be atrial fibrillation with right bundle-branch block pattern. Assessment and Plan (1) Complete heart block: Status: Acute (2) Paroxysmal atrial fibrillation: Status: Acute 70-year-old gentleman admitted for complete heart block with a background of paroxysmal atrial fibrillation and ablation 3 months ago. Labs show anemia which will need to be worked up somewhat electively considering the fact that he is markedly bradycardic. He also has evidence of renal failure as well as elevated potassium and magnesium. At home, lisinopril and spironolactone use may have contributed to this. He will benefit from a permanent pacemaker. Even though he is on lot of beta-blockers, highly unlikely that holding them will resolve issue. In any case, he will need the beta-blockers to suppress atrial fibrillation. Hence, we can proceed with implantation of permanent pacer. Patient himself is agreeable. Discussed with pole setter who will admit the patient. Also discussed with Dr. Zapata from thoracic surgery. All nonessential meds can be held for now.
[2020-07-01] MEDS: Albuterol/Iprat 2.5/0.5MG 3 ML AMPUL.NEB INHALE (10:58)
[2020-07-01] MEDS: methylPREDNISolone Sod Succ/PF 125 MG/2 ML VIAL IVPUSH (11:00)
[2020-07-01] MEDS: Lidocaine HCl 2 % Urojet 10 ML JEL.PF.APP TOPICAL (11:00)
--- NOTE | 2020-07-01 11:07 | PC.NURSE ---
PT ARRIVED TO ED VIA CAR C/O SOB, AND NOT FEELING WELL FOR LAST 6 MONTHS. NOTED TO HAVE HR IN THE 20'S PROVIDER AWARE, LS COARSE THROUGH OUT, WITH SATS IN THE 80 s PROVIDER ALSO AWARE PT ON O22L BASELINE PLACED ON 28%VENTI MASK SATS NOW 95-100%. MEDS GIVEN ORDERED, AT 1005 DECISION WAS MADE TO DO ETERNAL PACER, PROCEDURE OVER AT 1025 CURRENT HR 80 BP 113/58 PT TOLERATED PROCEDURE WELL.
--- NOTE | 2020-07-01 11:13 | PM.CCHP ---
History of Present Illness Date of Service: 07/01/20 Chief Complaint: Shortness of breath/dizziness 70-year-old male 3 months status post either AFib or a flutter ablation on metoprolol presents and complete heart block with wide QRS escape rate in the 20s with with progressive 10 lb weight gain exertional as well as recumbent dyspnea and increasing fatigability and near-syncope Underlying COPD Review of Systems Review of Systems: Yes all other systems are reviewed and are negative [facility] Past Medical History Medical History Atrial fibrillation COPD (chronic obstructive pulmonary disease) COPD (chronic obstructive pulmonary disease) Hypoxemia Paroxysmal atrial fibrillation Smoker Family History Family History Father No problems noted. Mother No problems noted. Social History Social History Alcohol intake: never Smoking Status: Current every day smoker Tobacco Type: Cigarette Cigarettes Per Day: 10 Use of substances other than those prescribed or required for medical reasons: No Advance Directives: No Advance Directives Information Provided: No Meds Allergies Allergy/AdvReac Type Severity Reaction Status Date / Time No Known Allergies Allergy Verified 06/05/20 13:37 [No Known Allergies*] Home Medications Medication Instructions Recorded Confirmed Type albuterol sulfate 90 mcg/actuation 2 puff INHALATION Q4H PRN 04/19/20 07/01/20 History aerosol inhaler apixaban 5 mg tablet 5 mg PO BID 04/19/20 07/01/20 History budesonide-formoterol HFA 80 2 inh INHALATION BID 04/19/20 07/01/20 History mcg-4.5 mcg/actuation aerosol inhaler magnesium oxide 400 mg (241.3 mg 400 mg PO DAILY 04/19/20 07/01/20 History magnesium) tablet metoprolol tartrate 50 mg tablet 75 mg PO TID 04/19/20 07/01/20 History spironolactone 25 mg tablet 12.5 mg PO DAILY 04/19/20 07/01/20 History tiotropium bromide 18 mcg capsule 1 cap INHALATION DAILY 04/19/20 07/01/20 History with inhalation device torsemide 20 mg tablet 60 mg PO BID 04/19/20 07/01/20 History lisinopril 5 mg tablet 2.5 mg PO DAILY tab 05/15/20 07/01/20 History multivitamin 1 tab PO DAILY 06/05/20 07/01/20 History Physical Exam Vital Signs: Vital Signs: Last Vital Signs Temp 97 F 07/01/20 08:45 Pulse 80 07/01/20 11:07 Resp 32 H 07/01/20 08:45 BP 113/58 L 07/01/20 11:05 Pulse Ox 100 07/01/20 10:05 Body Mass Index 28.3 Awake and alert and in respiratory distress on 100% non-rebreather Borderline blood pressure and positive neck vein distension neurologically nonfocal Chest with coarse bilateral rales Bedside echo showing significant bradycardia but no pericardial disease and no primary valve disease and this seems to be at least mild biventricular dilatation but preserved systolic ejection fraction Abdomen is soft with positive bowel sounds nondistended nontender Peripherally warm well perfused 2+ edema and no palpable pulses Results Labs CBC and Chem 7: 07/01/20 09:12 07/01/20 09:12 Labs: Laboratory Results - last 24 hr 07/01/20 07/01/20 07/01/20 09:10 09:10 09:12 MCV 93.7 MCH 29.6 MCHC 31.6 RDW 14.5 Plt Count 464 H D MPV 11.1 Immature Gran % (Auto) 1.2 H Neut % (Auto) 76.3 H Lymph % (Auto) 12.0 L [place] % (Auto) 7.8 Eos % (Auto) 1.7 Baso % (Auto) 1.0 Lymph # (Auto) 1.8 [place] # (Auto) 1.2 Eos # (Auto) 0.3 Baso # (Auto) 0.2 Abs Immat Gran (auto) 0.19 H Absolute Neuts (auto) 11.7 H Absolute Nucleated RBC 0.000 Nucleated RBC % (auto) 0.0 PT 24.9 H INR 2.1 H APTT 42.6 H Anion Gap Estim Creat Clear Calc Estimated GFR Random Glucose Lactic Acid Calcium Magnesium Ferritin Total Bilirubin Direct Bilirubin AST ALT Alkaline Phosphatase Lactate Dehydrogenase Troponin I High Sens B-Natriuretic Peptide Total Protein Albumin Lipase Procalcitonin 0.22 Coronavirus (PCR) Influenza Type A (PCR) Influenza Type B (PCR) RSV RNA Qual (PCR) 07/01/20 07/01/20 07/01/20 09:12 09:12 09:12 MCV MCH MCHC RDW Plt Count MPV Immature Gran % (Auto) Neut % (Auto) Lymph % (Auto) [place] % (Auto) Eos % (Auto) Baso % (Auto) Lymph # (Auto) [place] # (Auto) Eos # (Auto) Baso # (Auto) Abs Immat Gran (auto) Absolute Neuts (auto) Absolute Nucleated RBC Nucleated RBC % (auto) PT INR APTT Anion Gap 20 Estim Creat Clear Calc TNP Estimated GFR 40 Random Glucose 144 H D Lactic Acid 3.4 H* Calcium 8.6 Magnesium 2.8 H Ferritin Total Bilirubin 0.3 Direct Bilirubin 0.2 AST 33 D ALT 64 H Alkaline Phosphatase 108 D Lactate Dehydrogenase 136 Troponin I High Sens 32.2 B-Natriuretic Peptide 2610 H Total Protein 6.3 L Albumin 3.5 Lipase 9 Procalcitonin Coronavirus (PCR) Influenza Type A (PCR) Influenza Type B (PCR) RSV RNA Qual (PCR) 07/01/20 07/01/20 09:12 09:12 MCV MCH MCHC RDW Plt Count MPV Immature Gran % (Auto) Neut % (Auto) Lymph % (Auto) [place] % (Auto) Eos % (Auto) Baso % (Auto) Lymph # (Auto) [place] # (Auto) Eos # (Auto) Baso # (Auto) Abs Immat Gran (auto) Absolute Neuts (auto) Absolute Nucleated RBC Nucleated RBC % (auto) PT INR APTT Anion Gap Estim Creat Clear Calc Estimated GFR Random Glucose Lactic Acid Calcium Magnesium Ferritin 268 H Total Bilirubin Direct Bilirubin AST ALT Alkaline Phosphatase Lactate Dehydrogenase Troponin I High Sens B-Natriuretic Peptide Total Protein Albumin Lipase Procalcitonin Coronavirus (PCR) NEGATIVE Influenza Type A (PCR) NEGATIVE Influenza Type B (PCR) NEGATIVE RSV RNA Qual (PCR) NEGATIVE Imaging Radiologist's Impressions: Impressions Chest X-Ray 07/01/20 08:55 IMPRESSION: Right jugular pacemaker lead projects over the ventricular apex. Enlarged cardiac silhouette. Atelectasis at the right lung base and small right pleural effusion. No pneumothorax. Assessment and Plan (1) CHB (complete heart block): Status: Acute (2) COPD (chronic obstructive pulmonary disease): Qualifiers: COPD type: unspecified COPD Qualified Code(s): J44.9 - Chronic obstructive pulmonary disease, unspecified Status: Acute (3) Paroxysmal atrial fibrillation: Status: Acute (4) Hypoxemia: Problem details: STAY ON O2 ( VIA IONOGEN ) 2 L/MT , WITH OUTDOOR ACTIVITIES , AND PRN AT HOME . Status: Acute (5) Abdominal pain: Problem details: get labs and US; 20 min reviewing chart, eval patient and charting Status: Acute (6) COPD (chronic obstructive pulmonary disease): Problem details: SEEMS TO BE ADVANCED BUT STABLE . CHEST XRAY ON LAST VISIT DID NOT SHOW ANY ACUTE DISEASE EXCEPT MILD FIBROSIS IN RT. CARDI-PHRENIC ANGLE . . MEDS CONT. SYMBICORT 80-4.5 2 PUFFS BID SPIRIVA ONE INH DAILY , AND SALALBUTEROL 2 PUFFS Q 4-6 HRS ONNLY PRN , Status: Acute (7) Smoker: Problem details: HAD A GOOD DISCCUSSION . HE IS MOTIVATED TO QUIT, HE IS DOING OK WITH CHANTIX . WILL CONT. WITH ANNUAL LOW DOSE CT SCAN OF CHEST Status: Acute (8) Symptomatic bradycardia: Status: Acute (9) Biventricular failure: Status: Acute (10) Anemia: Status: Acute (11) Acute renal failure superimposed on stage 3 chronic kidney disease: Status: Acute Hopefully the acute renal failure is on the basis of this symptomatic bradycardia and secondary to acute biventricular heart failure A stat dose of 20 mg of Lasix was given because once cardiac output is restored with his heart rate he might become more congested Temporary pacemaker is inserted to the right ventricular apex without complication no bleeding and no pneumothorax and 100% ventricular pacing at a rate of 80 Awaiting Pope catheter so we can manage fluid in and help gauge cardiac output affect Next step is permanent pacing
[2020-07-01 11:21] LABS: Reflex Lactate? Lactic Acid Added
[2020-07-01] MEDS: Omeprazole 40 MG CAPSULE.DR PO (11:22)
[2020-07-01 11:23] LABS: Glucose Urine UA NEG (NEG); Leukocyte Esterase Urine NEG (NEG); Nitrite Urine NEG (NEG); Specific Gravity - Urine 1.015 (1.005-1.025); Urine Blood NEG (NEG); Urine Ketones NEG (NEG); Urine Protein NEG (NEG-TRACE)
[2020-07-01 11:24] LABS: Appearance Urine CLEAR; Color Urine YELLOW
--- NOTE | 2020-07-01 11:32 | PC.NURSE ---
Report given to RONY Marshall in the icu. pending transport
[2020-07-01 12:02] LABS: ~Lactic Acid-LAB USE ONLY 1.3 mmol/L (0.5-2.0)
--- NOTE | 2020-07-01 12:27 | XR_ITS ---
EXAMINATION: XR CHEST CLINICAL INFORMATION: Line placement COMPARISON: None TECHNIQUE: Frontal view of the chest was obtained. FINDINGS: The lungs are well-expanded and clear of acute pneumonic process. There is mild blunting of right CP angle from pleural effusion or thickening with minimal underlying atelectasis. The heart size and pulmonary vascularity is normal. There is a solitary pacer electrode in the right ventricle. No gross bony XR/XR chest 1V IMPRESSION: Small right pleural effusion or pleural thickening with minimal right lower lobe atelectasis.
--- NOTE | 2020-07-01 14:17 | FL_ITS ---
EXAMINATION: XR FLUOROSCOPY WITH IMAGES CLINICAL INFORMATION: Placement of dual-lead pacemaker COMPARISON: Chest x-ray 07/01/2020 TECHNIQUE: Fluoroscopy performed by Dr. Zapata. Fluoroscopy time: 22.4 minutes DAP: 557 mGy Images: 2 FINDINGS: 2 frontal spot views over the heart show placement of pacemaker lead in right atrium and right ventricle. FL/FL guidance in OR IMPRESSION: Placement of pacemaker leads.
--- NOTE | 2020-07-01 15:13 | P.CONAN_ITS ---
[facility], [facility] Past Medical History Medical History Atrial fibrillation COPD (chronic obstructive pulmonary disease) COPD (chronic obstructive pulmonary disease) Hypoxemia Paroxysmal atrial fibrillation Smoker Family History Family History Father No problems noted. Mother No problems noted. Social History Social History Household Members: Children Housing: [facility] Alcohol intake: never Smoking Status: Current every day smoker Tobacco Type: Cigarette Cigarettes Per Day: 5 Years Smoked: 50 Second Hand Smoke Exposure: Yes Meds Allergies Allergy/AdvReac Type Severity Reaction Status Date / Time No Known Allergies Allergy Verified 06/05/20 13:37 [No Known Allergies*] Home Medications Medication Instructions Recorded Confirmed Type albuterol sulfate 90 mcg/actuation 2 puff INHALATION Q4H PRN 04/19/20 07/01/20 History aerosol inhaler apixaban 5 mg tablet 5 mg PO BID 04/19/20 07/01/20 History budesonide-formoterol HFA 80 2 inh INHALATION BID 04/19/20 07/01/20 History mcg-4.5 mcg/actuation aerosol inhaler magnesium oxide 400 mg (241.3 mg 400 mg PO DAILY 04/19/20 07/01/20 History magnesium) tablet metoprolol tartrate 50 mg tablet 75 mg PO TID 04/19/20 07/01/20 History spironolactone 25 mg tablet 12.5 mg PO DAILY 04/19/20 07/01/20 History tiotropium bromide 18 mcg capsule 1 cap INHALATION DAILY 04/19/20 07/01/20 History with inhalation device torsemide 20 mg tablet 60 mg PO BID 04/19/20 07/01/20 History lisinopril 5 mg tablet 2.5 mg PO DAILY tab 05/15/20 07/01/20 History multivitamin 1 tab PO DAILY 06/05/20 07/01/20 History Exam Exam Date and Time: July 01, 20201512 Height,Weight and Vital Signs: Height 5 ft 7 in Weight 82 kg Last Vital Signs Temp 99.0 F 07/01/20 11:22 Pulse 80 07/01/20 15:00 Resp 27 H 07/01/20 15:00 BP 110/61 07/01/20 15:00 Pulse Ox 93 07/01/20 15:00 Pertinent Lab Results Pertinent Lab Results: Laboratory Tests 07/01/20 07/01/20 07/01/20 09:10 09:10 09:12 WBC 15.3 H RBC 2.87 L Hgb 8.5 L Hct 26.9 L MCV 93.7 MCH 29.6 MCHC 31.6 RDW 14.5 Plt Count 464 H D MPV 11.1 Immature Gran % (Auto) 1.2 H Neut % (Auto) 76.3 H Lymph % (Auto) 12.0 L [place] % (Auto) 7.8 Eos % (Auto) 1.7 Baso % (Auto) 1.0 Lymph # (Auto) 1.8 [place] # (Auto) 1.2 Eos # (Auto) 0.3 Baso # (Auto) 0.2 Abs Immat Gran (auto) 0.19 H Absolute Neuts (auto) 11.7 H Absolute Nucleated RBC 0.000 Nucleated RBC % (auto) 0.0 PT 24.9 H INR 2.1 H APTT 42.6 H Sodium Potassium Chloride Carbon Dioxide Anion Gap BUN Creatinine Estim Creat Clear Calc Estimated GFR Random Glucose Lactic Acid Lactic Acid Fup @ 2Hr Calcium Magnesium Ferritin Total Bilirubin Direct Bilirubin AST ALT Alkaline Phosphatase Lactate Dehydrogenase Troponin I High Sens B-Natriuretic Peptide Total Protein Albumin Lipase Procalcitonin 0.22 Urine Color Urine Appearance Urine pH Ur Specific [place] Urine Protein Urine Glucose (UA) Urine Ketones Urine Blood Urine Nitrite Ur Leukocyte Esterase Coronavirus (PCR) Influenza Type A (PCR) Influenza Type B (PCR) RSV RNA Qual (PCR) 07/01/20 07/01/20 07/01/20 09:12 09:12 09:12 WBC RBC Hgb Hct MCV MCH MCHC RDW Plt Count MPV Immature Gran % (Auto) Neut % (Auto) Lymph % (Auto) [place] % (Auto) Eos % (Auto) Baso % (Auto) Lymph # (Auto) [place] # (Auto) Eos # (Auto) Baso # (Auto) Abs Immat Gran (auto) Absolute Neuts (auto) Absolute Nucleated RBC Nucleated RBC % (auto) PT INR APTT Sodium 135 Potassium 5.5 H Chloride 97 Carbon Dioxide 24 Anion Gap 20 BUN 66 H Creatinine 1.72 H Estim Creat Clear Calc TNP Estimated GFR 40 Random Glucose 144 H D Lactic Acid 3.4 H* Lactic Acid Fup @ 2Hr Calcium 8.6 Magnesium 2.8 H Ferritin Total Bilirubin 0.3 Direct Bilirubin 0.2 AST 33 D ALT 64 H Alkaline Phosphatase 108 D Lactate Dehydrogenase 136 Troponin I High Sens 32.2 B-Natriuretic Peptide 2610 H Total Protein 6.3 L Albumin 3.5 Lipase 9 Procalcitonin Urine Color Urine Appearance Urine pH Ur Specific [place] Urine Protein Urine Glucose (UA) Urine Ketones Urine Blood Urine Nitrite Ur Leukocyte Esterase Coronavirus (PCR) Influenza Type A (PCR) Influenza Type B (PCR) RSV RNA Qual (PCR) 07/01/20 07/01/20 07/01/20 09:12 09:12 11:15 WBC RBC Hgb Hct MCV MCH MCHC RDW Plt Count MPV Immature Gran % (Auto) Neut % (Auto) Lymph % (Auto) [place] % (Auto) Eos % (Auto) Baso % (Auto) Lymph # (Auto) [place] # (Auto) Eos # (Auto) Baso # (Auto) Abs Immat Gran (auto) Absolute Neuts (auto) Absolute Nucleated RBC Nucleated RBC % (auto) PT INR APTT Sodium Potassium Chloride Carbon Dioxide Anion Gap BUN Creatinine Estim Creat Clear Calc Estimated GFR Random Glucose Lactic Acid Lactic Acid Fup @ 2Hr Calcium Magnesium Ferritin 268 H Total Bilirubin Direct Bilirubin AST ALT Alkaline Phosphatase Lactate Dehydrogenase Troponin I High Sens B-Natriuretic Peptide Total Protein Albumin Lipase Procalcitonin Urine Color YELLOW Urine Appearance CLEAR Urine pH 6.0 Ur Specific [place] 1.015 Urine Protein NEG Urine Glucose (UA) NEG Urine Ketones NEG Urine Blood NEG Urine Nitrite NEG Ur Leukocyte Esterase NEG Coronavirus (PCR) NEGATIVE Influenza Type A (PCR) NEGATIVE Influenza Type B (PCR) NEGATIVE RSV RNA Qual (PCR) NEGATIVE 07/01/20 11:36 WBC RBC Hgb Hct MCV MCH MCHC RDW Plt Count MPV Immature Gran % (Auto) Neut % (Auto) Lymph % (Auto) [place] % (Auto) Eos % (Auto) Baso % (Auto) Lymph # (Auto) [place] # (Auto) Eos # (Auto) Baso # (Auto) Abs Immat Gran (auto) Absolute Neuts (auto) Absolute Nucleated RBC Nucleated RBC % (auto) PT INR APTT Sodium Potassium Chloride Carbon Dioxide Anion Gap BUN Creatinine Estim Creat Clear Calc Estimated GFR Random Glucose Lactic Acid Lactic Acid Fup @ 2Hr 1.3 Calcium Magnesium Ferritin Total Bilirubin Direct Bilirubin AST ALT Alkaline Phosphatase Lactate Dehydrogenase Troponin I High Sens B-Natriuretic Peptide Total Protein Albumin Lipase Procalcitonin Urine Color Urine Appearance Urine pH Ur Specific [place] Urine Protein Urine Glucose (UA) Urine Ketones Urine Blood Urine Nitrite Ur Leukocyte Esterase Coronavirus (PCR) Influenza Type A (PCR) Influenza Type B (PCR) RSV RNA Qual (PCR) Airway Mallampati Class: III TM Dist: >3cm Loose/Missing/Broken Teeth: No Heart: Paced Lungs: On venti mask Other: AO Assessment and Plan Assessment Anesthesia Assessment: Anesthesia Plan Discussed and Chart Reviewed Final Anesthetic Review NPO: Yes ASA Class: IV Final Preanesthetic Review: No Changes in Pt Med Stat, Meds/Allgs Chart Reviewed, Consent Obtained/Reviewed and Anes Risks/Benef Reviewed Patient Risk: High Procedure Risk: Intermediate Anesthetic Plan Anesthetic Plan: MAC: Disposition: Standard PACU and Inp. Admit - ICU
--- NOTE | 2020-07-01 19:54 | OP_ITS ---
SURGEON: Agnieszka Zapata MD PREOPERATIVE DIAGNOSIS: Complete heart block. POSTOPERATIVE DIAGNOSIS: Complete heart block. PROCEDURE PERFORMED: Emergent dual-chamber permanent pacemaker with fluoroscopic guidance. ESTIMATED BLOOD LOSS: Minimal. COMPLICATIONS: ANESTHESIA: LMA with local. ASSISTANTS: SPECIMENS: None. INDICATIONS FOR OPERATION: A 70-year-old gentleman with history of ablation for atrial fibrillation and paroxysmal atrial fibrillation, who presented with frequent dizziness and generalized fatigue. In the emergency department, he had a heart rate in the 20s with a complete heart block on EKG as well as some decreased urine output and kidney function. For these reasons, temporary pacemaker was placed in the emergency department by the operations recruiter, Dr. Taylor and the patient was admitted to the ICU. When I met him, I discussed with him the risks, benefits, alternatives of a dual-chamber pacemaker, which he understood and agreed to proceed. OPERATIVE FINDINGS: The pacemaker placed was a Biotronik Edora 8 DR-T, serial #[id number]. The atrial lead was a Biotronik Solia S53, serial #[id number]. The ventricular lead was a Biotronik Solia S60, serial #[id number]. The patient's parameters in the right atrial lead threshold were 1 V at 0.4 milliseconds, P wave was 3.0, impedance was 507 ohms and the right ventricular lead threshold was 0.7 V at 0.4 milliseconds and the impedance was 604 ohms. The patient tolerated the procedure well. OPERATION DETAILS: On day of the operation, the patient was brought to the operating room, placed supine on the operative room table. Anesthesia monitoring devices were placed and ultimately due to the patient coughing, an LMA was placed without difficulty. The left infraclavicular area was then prepped and draped in standard sterile fashion and after injection of local anesthetic, a 3 cm incision was made and carried down to the pectoralis fascia. Through this incision and with the patient in Trendelenburg, an 18-gauge needle was used to access the subclavian vein on the first take and a wire was placed and guided into the right atrium under fluoroscopic guidance. Again, a second 18-gauge needle was used to access the subclavian vein again on the first take and a wire was placed under fluoroscopic guidance and parked in the right atrium. At this point, a pocket was formed using a combination of electrocautery and blunt dissection. Then, the 6-Japanese sheath was placed over the first wire and the wire and dilator were removed. The ventricular lead was then placed through the sheath and the peel-away sheath was removed. Using a curved stylet, we were able to easily access the right ventricle, thin outflow tract. However, due to quite enlarged right atrium, we did have difficulty accessing the right ventricular apex. The lead just kept popping out of the ventricle. We did attach several times to the ventricular septum; however, each time even after testing with good parameters, the lead and we had to redo it. Finally, I changed the stylet we used to give it less of a curve and we were able to access the right ventricle and at this time, get into the right ventricular apex just inferior to the temporary pacemaker lead in place. At this time after at least an hour and half after trying to get in a good position in the right ventricle, the endocardial screw was deployed. The lead was tested with excellent parameters listed above. This lead was secured to the pectoralis fascia with silk sutures. The second 6-Japanese sheath was placed over the second wire and the wire and dilator were removed. The atrial lead was then placed through the sheath, but the sheath was left in place for some stability. A J stylet was used to access the right atrial appendage, which was done quite easily and the endocardial screw was deployed. The stylet was removed and the lead stayed in place and this lead was tested with excellent parameters listed above. This lead was then secured to the pectoralis fascia with silk sutures. The pocket was then copiously irrigated with antibiotic solution and the leads were connected to the appropriate receptacles in the new pacemaker generator. The excess lead and the generator were then placed into the pocket and at this point under fluoroscopic guidance, the temporary pacer was removed. All lead stayed in place and the leads were again tested after this removal with excellent parameters listed above. The wound was then closed with a deep running 3-0 Vicryl suture followed by running 3-0 Vicryl suture and Dermabond glue on the skin. The patient tolerated the procedure well, was extubated at the conclusion of the operation, brought to recovery room in stable condition. MD ADELE Andrews/MARITO / [id number]
[2020-07-01] MEDS: Albuterol Sulfate (0.083%) 2.5 MG/3 ML VIAL.NEB INHALE (20:20)
--- NOTE | 2020-07-01 21:34 | PM.EVENT ---
Event Note Date of Service: 07/01/20 Event Note: received tiger text from nurse that pt bp 88/40s. on 45% venti for respiration. Pt put out 250CC of urine in last hr Pt is status post pacemaker. Spoke to Dr. Taylor. recommneded to monitor urine output and as long as adequate, no requirement for inotropes
--- NOTE | 2020-07-01 21:50 | PC.NURSE ---
Patient up to unit around 1999 from PACU with DRY CANS OPERATOR at bedside. Patient is s/p pacemaker. Patient is arousable, but drowsy. Oriented to person, vague to place and unable to assess time or situation at this time. patient is forgetful to confused at times. BP is 88/44. Patient uses 2 lt NC at baseline. Patient up to unit with 31% on ventimask. DRY CANS OPERATOR states she attempted to wean o2 to NC. However, patient o2 dropped to the mid 80s. Therefore ventimask was reapplied. Pacemaker insertion site C/D. Well approximated edges. Minimal swelling. Surrounding skin intact, with good color. Patient currently not c/o any pain. 100% V-Paced on monitor in the 70s. Lungs with expiratory wheezes and crackles throughout. O2 sat 88% on 31% venti mask. Therefore patient placed on 45% on ventimask. Sat 92-97%. No respiratory distress noted. Patient asking for water. DRY CANS OPERATOR states she attempted bedside swallow, patient failed. Patient given mouthcare. Patient with some coughing after swabbing mouth. Patient educated on importance on safety and need to remain NPO at this time. Md made aware of low BP. Per MD, patient BP okay in the 80s systolically as long as having good urine output per tube operator. Spoke to patient's family for an update. Son spoke to patient briefly. Will continue to monitor vitals and urine output. High fall risk precautions in place. Patient consistently reminded about not moving right arm. Sling in place. Bed alarm on. No telesitters available at this time. Patient has not attempted to move OOB. IV to Left AC in place and flushing well.
--- NOTE | 2020-07-01 23:44 | PC.NURSE ---
Addendum entered by Anali Zavala RN 07/02/20 02:58: 0245 - at bedside to assess patient. Patient was sitting up in bed, alert, oriented. Patient able to state name, , place. patient asking if he already had the pacemaker placed. BP improved. Patient weaned to 4lt NC. o2 94%. Patient asking for water. Patient able to tolerate spoonfuls and sips of water with no coughing or other issues. Currently no c/o pain. Patient urine output still good. Educated patient again about minimal use of left arm at this time. Original Note: Patient up to unit around 1999 from PACU with EMERGENCY ROOM RN at bedside. Patient is s/p pacemaker. Patient is arousable, but drowsy. Oriented to person, vague to place and unable to assess time or situation at this time. patient is forgetful to confused at times. BP is 88/44. Patient uses 2 lt NC at baseline. Patient up to unit with 31% on ventimask. EMERGENCY ROOM RN states she attempted to wean o2 to NC. However, patient o2 dropped to the mid 80s. Therefore ventimask was reapplied. Pacemaker insertion site C/D. Well approximated edges. Minimal swelling. Surrounding skin intact, with good color. Patient currently not c/o any pain. 100% V-Paced on monitor in the 70s. Lungs with expiratory wheezes and crackles throughout. O2 sat 88% on 31% venti mask. Therefore patient placed on 45% on ventimask. Sat 92-97%. No respiratory distress noted. Patient asking for water. EMERGENCY ROOM RN states she attempted bedside swallow, patient failed. Patient given mouthcare. Patient with some coughing after swabbing mouth. Patient educated on importance on safety and need to remain NPO at this time. Md made aware of low BP. Per MD, patient BP okay in the 80s systolically as long as having good urine output per materials research engineer. Spoke to patient's family for an update. Son spoke to patient briefly. Will continue to monitor vitals and urine output. High fall risk precautions in place. Patient consistently reminded about not moving left arm. Sling in place. Bed alarm on. No telesitters available at this time. Patient has not attempted to move OOB. IV to Left AC in place and flushing well.
[2020-07-02] MEDS: 0.9 % Sodium Chloride Flush 3 ML SYRINGE IVFLUSH ×3 (00:38→16:09)
[2020-07-02 02:52] VITALS: BP 101/53; PULSE 79; RESP 19; TEMP 36.4; O2SAT 94
[2020-07-02 07:40] VITALS: BP 106/54; PULSE 83; RESP 20; TEMP 36.4; O2SAT 94
[2020-07-02 10:07] LABS: Hematocrit 28.7 % (42-52); Hemoglobin 9.1 g/dl (14.0-18.0); Mean Corpuscular HGB Conc 31.7 g/dl (31.0-36.0); Mean Corpuscular Hemoglobin 29.3 pg (27.0-33.0); Mean Corpuscular Volume 92.3 fL (80-98); Mean Platelet Volume 10.2 fL (9.4-12.4); Platelet Count 410 X10*3/uL (160-400); Red Blood Count 3.11 X10*6/uL (4.60-5.80); Red Cell Distribution Width 14.3 % (11.0-16.0); White Blood Count 11.2 X10*3/uL (4.8-10.8)
--- NOTE | 2020-07-02 10:31 | MHC.CM.PN ---
pt has rn vists every 2 months thru [facility] /thru his ins he has home 02 thru [facility] he has own transportaion home
[2020-07-02 10:34] LABS: Anion Gap 15 (12-20); Blood Urea Nitrogen 47 mg/dL (9-16); Calcium 8.6 mg/dL (8.4-10.2); Carbon Dioxide 30 mmol/L (22-29); Chloride 99 mmol/L (96-108); Creatinine Clr Calc Pharmacy 72.4; Estimated Glomerular Filt Rate > 60; Glucose Random 187 mg/dL (60-115); Iron 32 mcg/dL (45-160); Percent Iron Saturation 12 % (15-50); Potassium 4.6 mmol/l (3.3-5.1); Sodium 139 mmol/L (135-145); Total Iron Binding Capacity 261 mcg/dL (228-428); Unsaturated Iron Binding 229 ug/dL
--- NOTE | 2020-07-02 10:51 | P.CDIC_ITS ---
CDI Concurrent Query Service Date: 07/02/20 Documentation Clarification: Please clarify if you are treating a proba ble/suspected/likely or confirmed: Chronic hypoxic respiratory failure Acute on chronic hypoxic respiratory failure Please specify if known Provider Response: Acute Respiratory Failure PLEASE DO NOT DELETE/MODIFY EXISTING CONTENT Additional information is needed in order to code to the highest accuracy and appropriate Severity of Illness (SOI). Please clarify the information noted below in your progress notes and discharge summary. Risk Factors/Clinical Indicators/Treatments H&P: Copd on Home O2, hypoxemic, shortness of breath, wheezing w RR 32 pulse ox 80 L placed on 4liters oxygen Complete heart block, smoker. CDS: Maria Esther Zamudio CCS, CDIS Contact Number: [phone] Please Review the information above and exercise your independent professional judgment in responding to the query. If you concur, pleas document in the PROGRESS NOTES and DISCHARGE SUMMARY. If you do not agree with the query, please document in the query above. THIS QUERY IS PART OF THE PERMANENT MEDICAL RECORD
--- NOTE | 2020-07-02 11:04 | PM.PNCARD ---
Subjective Subjective Date of Service: 07/02/20 Interval history: Patient received pacemaker yesterday. He states that he is feeling much better. Review of Systems Review of Systems Yes all other systems are reviewed and are negative Cardiovascular: Reports as per HPI, Reports no additional cardiovascular complaints, Denies acrocyanosis, Denies cool extremities, Denies painful fingertips, Denies chest pain, Denies chest pain at rest, Denies diaphoresis, Denies syncope, Denies irregular heart rhythm, Denies claudication, Denies leg edema, Denies lightheadedness, Denies palpitations and Denies dyspnea Respiratory: Denies dyspnea Denies syncope Endocrine: Denies palpitations Physical Exam Vital Signs: Last Vital Signs Temp 97.5 F 07/02/20 07:40 Pulse 83 07/02/20 07:40 Resp 20 07/02/20 07:40 BP 106/54 L 07/02/20 07:40 Pulse Ox 94 07/02/20 07:40 Body Mass Index 28.3 Const General: cooperative, comfortable and no acute distress Orientation/consciousness: patient oriented x3 HENMT Other: Unremarkable Neck Neck: Yes normal visual inspection Chest Chest palpation & inspection: normal inspection of the chest Resp Auscultation: no crackles, rhonchi, wheezes and diminished lung sounds Cardio Jugular venous distension: no JVD Palpation: normal PMI Heart sounds: S1 normal heart sound present, S2 normal heart sound present, no gallops, no murmurs and no rubs GI Palpation (GI): Soft to palpation Back/Spine/Pelvis Other: unremarkable Skin General skin exam: no rashes or lesions noted Neuro General: patient oriented x3 Extrem General: Yes no clubbing, cyanosis or edema Psych Mental Status: mental status grossly normal Results Labs and Meds Result diagrams: 07/02/20 09:58 07/02/20 09:58 Lab results: Laboratory Results - last 24 hr 07/01/20 07/01/20 07/01/20 09:24 11:15 11:36 WBC RBC Hgb Hct MCV MCH MCHC RDW Plt Count MPV Absolute Nucleated RBC Nucleated RBC % (auto) Sodium Potassium Chloride Carbon Dioxide Anion Gap BUN Creatinine Estim Creat Clear Calc Estimated GFR Random Glucose Lactic Acid Fup @ 2Hr 1.3 Calcium Iron TIBC % Saturation Unsat Iron Binding Urine Color YELLOW Urine Appearance CLEAR Urine pH 6.0 Ur Specific [place] 1.015 Urine Protein NEG Urine Glucose (UA) NEG Urine Ketones NEG Urine Blood NEG Urine Nitrite NEG Ur Leukocyte Esterase NEG COVID-19 ([facility]) Cancelled COVID-19 Clin Com Cancelled 07/02/20 07/02/20 09:58 09:58 WBC 11.2 H RBC 3.11 L Hgb 9.1 L Hct 28.7 L MCV 92.3 MCH 29.3 MCHC 31.7 RDW 14.3 Plt Count 410 H MPV 10.2 Absolute Nucleated RBC 0.000 Nucleated RBC % (auto) 0.0 Sodium 139 Potassium 4.6 Chloride 99 Carbon Dioxide 30 H Anion Gap 15 BUN 47 H Creatinine 1.00 Estim Creat Clear Calc 72.4 Estimated GFR > 60 Random Glucose 187 H Lactic Acid Fup @ 2Hr Calcium 8.6 Iron 32 L TIBC 261 % Saturation 12 L Unsat Iron Binding 229 Urine Color Urine Appearance Urine pH Ur Specific [place] Urine Protein Urine Glucose (UA) Urine Ketones Urine Blood Urine Nitrite Ur Leukocyte Esterase COVID-19 ([facility]) COVID-19 Clin Com Imaging Radiologist's impression: Impressions Chest X-Ray 07/01/20 00:00 IMPRESSION: New dual-lead pacemaker is described. Basilar markings likely reflecting some atelectasis and tiny right effusion. Chest X-Ray 07/01/20 08:55 IMPRESSION: Right jugular pacemaker lead projects over the ventricular apex. Enlarged cardiac silhouette. Atelectasis at the right lung base and small right pleural effusion. No pneumothorax. Chest X-Ray 07/01/20 12:27 IMPRESSION: Small right pleural effusion or pleural thickening with minimal right lower lobe atelectasis. Guidance Fluoroscopy 07/01/20 14:17 IMPRESSION: Placement of pacemaker leads. Progress Note: A&P Assessment and plan (1) Complete heart block: Status: Acute (2) Paroxysmal atrial fibrillation: Status: Acute Assessment and Plan: Old records reviewed. He has a history of cardiomyopathy with LVEF as low as 15-20% last year. He underwent atrial flutter as well as fibrillation ablation in January 2020. It does not appear that he has had any ischemic evaluation. Apparently his blood pressure was running low on the day of stress test and hence that was not performed. He will need a follow-up echocardiogram to reassess the LVEF. Otherwise, we can resume beta-blockers at a lower dose due to his blood pressure. Previously, he was taking metoprolol 75 mg t.i.d. May have to hold other medications at this time. Resume Eliquis. Workup for anemia. Otherwise, pacer interrogation is uneventful and with normal function. Fall Risk Details Current Medications: Current Medications Generic Name Dose Route Start Last Admin Trade Name Freq PRN Reason Stop Dose Admin Acetaminophen 650 mg 07/01/20 11:10 Acetaminophen 325 Mg Tablet PO Q6H PRN Pain, Mild (Pain Scale 1-3) Fentanyl 25 mcg 07/01/20 17:43 Fentanyl Citrate/Pf 100 Mcg/2 Ml Vial IVPUSH Q5M PRN Pain, Moderate (Pain Scale 4-6 Omeprazole 40 mg 07/01/20 11:15 07/02/20 00:38 Omeprazole 40 Mg Capsule.Dr JERNIGAN Not Given DAILY@0630 [facility] Ondansetron HCl 4 mg 07/01/20 17:43 Ondansetron Hcl 4 Mg/2 Ml Vial IVPUSH ONCE PRN Nausea and Vomiting Pharmacy Consult 1 each 07/01/20 08:55 Consult Rx Perform Med Rec MISCELLANE ONCE PRN Consult order Sodium Chloride 3 ml 07/01/20 16:00 07/02/20 07:39 0.9 % Sodium Chloride Flush 3 Ml Syringe [facility] Administration Time Spent With Patient Time: Total time spent is greater than 50% in coordination of care (as documented) at patient's floor/unit and/or counseling patient: Time with patient: less than 15 minutes
[2020-07-02 11:23] VITALS: BP 110/50; PULSE 89; RESP 18; TEMP 36.8; O2SAT 94
--- NOTE | 2020-07-02 11:28 | HO.PM.IMPN ---
Subjective Subjective Date of Service: 07/02/20 Interval History: feeling better Cardiovascular Cardiovascular: Reports no additional cardiovascular complaints Respiratory Respiratory: Reports no additional respiratory complaints Physical Exam Vital Signs: Vital Signs: Last Vital Signs Temp 98.2 F 07/02/20 11:23 Pulse 89 07/02/20 11:23 Resp 18 07/02/20 11:23 BP 110/50 L 07/02/20 11:23 Pulse Ox 94 07/02/20 11:23 Body Mass Index 28.3 General: AO X 3, no acute distress Resp: CTA bilateral CVS: S1,S2,RRR GI: soft, non tender, non distended Neuro: motor grossly intact Psych: appropriate affect Objective Data Current Medications Generic Name Dose Route Start Last Admin Trade Name Freq PRN Reason Stop Dose Admin Acetaminophen 650 mg 07/01/20 11:10 Acetaminophen 325 Mg Tablet PO Q6H PRN Pain, Mild (Pain Scale 1-3) Fentanyl 25 mcg 07/01/20 17:43 Fentanyl Citrate/Pf 100 Mcg/2 Ml Vial IVPUSH Q5M PRN Pain, Moderate (Pain Scale 4-6 Metoprolol Succinate 25 mg 07/03/20 09:00 Metoprolol Succinate Er 25 Mg Tab.Er.24h PO DAILY [facility] Protocol Omeprazole 40 mg 07/01/20 11:15 07/02/20 00:38 Omeprazole 40 Mg Capsule.Dr PO Not Given DAILY@0630 [facility] Ondansetron HCl 4 mg 07/01/20 17:43 Ondansetron Hcl 4 Mg/2 Ml Vial IVPUSH ONCE PRN Nausea and Vomiting Pharmacy Consult 1 each 07/01/20 08:55 Consult Rx Perform Med Rec MISCELLANE ONCE PRN Consult order Sodium Chloride 3 ml 07/01/20 16:00 07/02/20 07:39 0.9 % Sodium Chloride Flush 3 Ml Syringe IVFLUSH 3 ml QSHIFT [facility] Administration Labs CBC & Chem 7: 07/02/20 09:58 07/02/20 09:58 Microbiology Microbiology Results: Microbiology 07/01/20 09:10 Blood - Venous Blood Culture - Preliminary No growth after 24 hours. Assessment and Plan (1) Acute and chronic respiratory failure with hypoxia: Status: Acute (2) Heart failure with reduced ejection fraction: Status: Acute (3) MARYANN (acute kidney injury): Status: Acute (4) Iron (Fe) deficiency anemia: Status: Acute (5) Biventricular failure: Status: Acute (6) Paroxysmal atrial fibrillation: Status: Acute (7) Complete heart block: Status: Acute (8) COPD (chronic obstructive pulmonary disease): Problem details: Status: Acute (9) Smoker: Status: Acute Assessment and Plan: 70M presented with sob Acute on chronic hypoxic respiratory failure due to complete heart block complicated by acute on chronic CHF with reduced ejection fraction and acute kidney injury Status post pacer 07/01/2020 Hypoxia resolved Acute kidney injury resolved Paroxysmal atrial fibrillation Toprol reduced to 25 mg daily Eliquis Iron deficiency anemia on Eliquis GI appreciated, outpatient follow up for scoping will restart eliquis
--- NOTE | 2020-07-02 14:58 | HO.POSTANES ---
Post Anesthesia Evaluation Post Anesthesia Evaluation Vital Signs: Vital Signs Temp Pulse Resp BP Pulse Ox 07/02/20 11:23 98.2 F 89 18 110/50 L 94 07/02/20 07:40 97.5 F 83 20 106/54 L 94 Anesthesia: General Mental Status: Awake Pain Control: Satisfactory Nausea/Vomiting: None Hydration: Adequate Anesthesia-Related Issues: No Anes. Related Issues
--- NOTE | 2020-07-02 15:25 | PM.EVENT ---
Documented by User: JOHNNIE Levine 07/02/20 15:35 Event Note Date of Service: 07/02/20 Event Note: S: O: A/P: 70 year old male POD#1 s/p dual chamber Biotronik pacemaker insertion. Patient may resume Eliquis on 07/04/20. Continue to hold until then. Stable for discharge from [facility]. Discharge instructions placed in [facility]. Documented by User: Jerilyn Escoto NP 07/02/20 15:39 Event Note Date of Service: 07/02/20
--- NOTE | 2020-07-02 15:39 | PM.PNTS ---
Subjective Subjective Date of Service: 07/17/20 Patient reports: no new complaints Interval history: Patient seen and examined this afternoon. Doing well overall. No complaints. States he is feeling much better following surgery. He hast not had a BM at this time but admits to a poor appetite. Voiding without difficulty. Wears 2L O2 via nasal cannula. Denies pain to pacemaker site at rest and with palpation, shortness of breath, fever, cough, lightheadedness, or palpitations. Currently wearing sling. Denies any other complaints at this time. Physical Exam Vital Signs: Vital Signs: Last Vital Signs Temp 98.2 F 07/02/20 11:23 Pulse 89 07/02/20 11:23 Resp 18 07/02/20 11:23 BP 110/50 L 07/02/20 11:23 Pulse Ox 94 07/02/20 11:23 Body Mass Index 28.3 Const: General: cooperative, healthy appearing, comfortable and no acute distress Nutritional Appearance: well nourished Orientation/consciousness: oriented to person, oriented to place, oriented to time and patient oriented x3 Limitations: no limitations HENMT: Head: Yes normal to inspection, Yes normocephalic and Yes atraumatic Mouth: Normal oral and palatal mucosa present Eyes: Visual Kaplan: normal visual kaplan by confrontation Alignment and Position: alignment normal Periorbital: periorbital findings normal Conjunctivae: conjunctivae normal Sclerae: sclerae normal Pupils: Equal, round and reactive pupils present and Pupil accommodation reflex normal EOM: EOMs intact bilaterally Neck: Neck: Yes normal visual inspection, Yes full ROM, Yes no lymphadenopathy, Yes trachea midline, Yes supple, No lymphadenopathy, No tender and No tracheal deviation Lymphatic: no lymphadenopathy noted Chest: Chest palpation & inspection: normal inspection of the chest and no crepitus Resp: Other: Patient is speaking in full sentences. Lungs with inspiratory and expiratory wheezes bilaterally. Chest expansion symmetrical. Effort & Inspection: normal respiratory effort, able to speak in complete sentences, normal respiratory pattern, audible wheezes, no cough, no pursed lip breathing, no respiratory distress, no stridor, not tachypneic, no tracheal deviation and no use of accessory muscles Auscultation: not clear to auscultation bilaterally Cardio: Other: Pacemaker site assessed, no visible erythema, edema, ecchymosis, or drainage. There is a slight change in pigmentation at the site of the incision, otherwise blanchable. No pain on palpation. Jugular venous distension: no JVD Palpation: normal PMI Rate: regular rate Rhythm: regular rhythm Heart sounds: S1 normal heart sound present, S2 normal heart sound present, no click, no gallops, no murmurs and no rubs GI: Inspection: Yes normal to inspection Auscultation: normal bowel sounds : General: Yes no CVA tenderness Back/Spine/Pelvis: Back: no CVA tenderness Thoracic/Lumbar Spine: thoracic and lumbar spine normal to inspection Skin: General skin exam: no rashes or lesions noted and dry skin Lesions: no lesions Rashes: no rashes Neuro: General: oriented to person, oriented to place, oriented to time, patient oriented x3 and gait normal Cranial nerves: Yes Equal, round and reactive pupils present Extrem: General: Yes normal to inspection, Yes full ROM, Yes capillary refill normal, Yes no clubbing, cyanosis or edema, Yes no pedal edema and Yes normal gait Psych: Appearance: grossly normal and well kempt Mental Status: mental status grossly normal Speech and movement: Normal speech and movement present and Clear speech present Affect: normal affect Attitude: cooperative Thought process: Normal thought process present Thought content: Normal thought content present Progress Note: A&P Assessment and plan (1) Complete heart block: Status: Acute Assessment and Plan: Patient is a 70 year old male POD#1 s/p dual chamber Biotronik pacemaker insertion. Pacemaker site without ecchymosis, erythema, edema, induration, or drainage. Patient may resume Eliquis on 07/04/20. Continue to hold until then. Stable for discharge from Thoracic perspective. Discharge instructions placed in [facility]. Fall Risk Details Current Medications: Current Medications Generic Name Dose Route Start Last Admin Trade Name Freq PRN Reason Stop Dose Admin Acetaminophen 650 mg 07/01/20 11:10 Acetaminophen 325 Mg Tablet PO Q6H PRN Pain, Mild (Pain Scale 1-3) Fentanyl 25 mcg 07/01/20 17:43 Fentanyl Citrate/Pf 100 Mcg/2 Ml Vial IVPUSH Q5M PRN Pain, Moderate (Pain Scale 4-6 Metoprolol Succinate 25 mg 07/03/20 09:00 Metoprolol Succinate Er 25 Mg Tab.Er.24h PO DAILY KENNEDY Protocol Omeprazole 40 mg 07/01/20 11:15 07/02/20 00:38 Omeprazole 40 Mg Capsule. PO Not Given DAILY@0630 COUNTS INCLUDE 234 BEDS AT THE [facility] Ondansetron HCl 4 mg 07/01/20 17:43 Ondansetron Hcl 4 Mg/2 Ml Vial IVPUSH ONCE PRN Nausea and Vomiting Pharmacy Consult 1 each 07/01/20 08:55 Consult Rx Perform Med Rec MISCELLANE ONCE PRN Consult order Sodium Chloride 3 ml 07/01/20 16:00 07/02/20 07:39 0.9 % Sodium Chloride Flush 3 Ml Syringe IVFLUSH 3 ml QSHIFT COUNTS INCLUDE 234 BEDS AT THE [facility] Administration Time Spent With Patient Time: Total time spent is greater than 50% in coordination of care (as documented) at patient's floor/unit and/or counseling patient: Time with patient: 15 - 24 minutes
[2020-07-02 16:00] VITALS: BP 133/70; PULSE 98; RESP 18; TEMP 36.8; O2SAT 95
--- NOTE | 2020-07-02 16:00 | CA_ITS ---
Transthoracic Echocardiogram Patient (Last, First, Middle): Stan Sherman, Gender: Male Date of : 1950 Age: 70 Procedure Date: 07/02/2020 Procedure Type: Transthoracic Echocardiogram [place] [facility] [place]: 170.18 cm Weight: 81.65 kg BSA: 1.93 m2 Heart Rate: bpm BP: 110 / 50 mmHg Anesthesiologists' Assistant: Referring MD: Bruno Shukla MD Symptoms: Cardiomyopathy Study Quality: Technically Difficult ECG Rhythm: Ventriculary paced rhythm Conclusions: - The left ventricular systolic function is mildly decreased. The visually estimated ejection fraction is between 45-50%. - The left atrium is moderately dilated. - No obvious valvular pathology seen on this study. Findings Procedure Information Contrast agent, definity, is being given per protocol without apparent complications. Left Ventricle Normal left ventricular cavity size. There is mildly increased left ventricular wall thickness. The left ventricular systolic function is mildly decreased. The visually estimated ejection fraction is between 45-50%. There is mild global hypokinesis. Diastolic function is normal for age. Right Ventricle Mildly increased right ventricular cavity size. There is normal right ventricular systolic function. Atria The left atrium is moderately dilated. The right atrium is normal in size. Aortic Valve There is a normal trileaflet aortic valve. There is no aortic valve stenosis. There is no aortic valve regurgitation. Mitral Valve The mitral valve appears normal. There is no mitral valve regurgitation. There is no mitral valve stenosis. Pulmonic Valve The pulmonic valve was not well visualized. Tricuspid Valve The tricuspid valve was not well visualized. There is trace tricuspid valve regurgitation. The pulmonary artery systolic pressure is normal. Great Vessels The aortic annulus, sinuses of valsalva, and asc aorta are normal in size. Venous The inferior vena cava is normal in size and collapses greater than 50% with inspiration. Pericardium/Pleural There is no evidence of pericardial effusion. Prior Study Comparison No prior study available for comparison. Recommendations, Care & Conclusions No obvious valvular pathology seen on this study. Measurements 2D Linear Measurements IVSd: 1.11 0.6-0.9/0.6-1.0 cm LVIDd: 5.14 3.9-5.3/4.2-5.9 cm LVIDd Index: 2.66 2.4-3.2/2.2-3.1 cm/m2 LVIDs: 3.23 2.0-3.6 cm LVPWd: 1.17 0.7-1.1 cm Ao Root: 3.70 2.1-3.5 cm LA Diam: 3.40 2.7-3.8/3.0-4.0 cm LAIDs Index: 1.76 1.5-2.3 cm/m2 LV Mass: 283.63 67-162/88-224 g LV Mass Index: 146.96 43-95/49-115 g/m2 LVOT Diam: 2.50 3.0+(-)1.3 cm 2D Systolic Function EF 4C: 52.70 >55% EF 2C: 39.50 >55% EF BiP: 45.50 >55% Mitral Valve MV Pk E: 1.06 MV PK A: 0.87 MV Decel Time: 169.00 E/A: 1.20 E'Lateral: 18.80 E'Medial: 11.70 E/E' Med: 9.10 E/E' Lat: 5.60 PHT: 50.00 MVA PHT: 4.40 Decel Lares: 6.29 Aortic Valve AoV Pk Gab: 1.41 AoV Mn Gab: 1.02 AoV VTI: 0.28 AoV Pk Grad: 8.00 Aov Mn Grad: 5.00 FRITZ Cont.VTI: 3.27 LVOT LVOT Pk Gab: 1.00 LVOT Mn Gab: 0.77 LVOT VTI: 0.19 LVOT Pk Grad: 4.00 LVOT Mn Grad: 3.00 LVOT Diam: 2.50 LVOT Area: 4.91 Diastolic Function MV Pk E: 1.06 MV Pk A: 0.87 E/A: 1.20 E'Medial: 11.70 E/E' Med: 9.10 E' Laterial: 18.80 E/E' Lat: 5.60 Tricuspid Valve TR Pk Gab: 2.11 TR Pk Grad: 18.00 RA Press: 3.00 RVSP: 21.00 Great Vessels Aorta Ao Root-2D: 3.70 2.0-3.7 cm Pulmonary Valve PV Pk Gab: 1.34 Peak PV Grad: 7.00 Updated in Other Vendor System with Status of Final Bruno Shukla MD electronically signed on 07/02/2020 4:34:07 PM with status of Final
--- NOTE | 2020-07-02 17:00 | P.DS_ITS ---
DS: Providers Provider Date of Service: 07/02/20 Date of admission: 07/01/20 11:03 Primary care physician: Charbel Poe MD Consults: 07/01/20 10:15 Consult to Cardiology Stat Consulting Provider: Bruno Shukla Reason for consultation: Third-degree heart block Has provider been notified: Yes 07/02/20 11:13 Consult to Gastroenterology Routine Consulting Provider: Dayna Tian Reason for consultation: iron defeciency anemia, on eliquis DS: Diagnosis Discharge Diagnosis (1) Complete heart block: Status: Acute (2) MARYANN (acute kidney injury): Status: Acute (3) Iron (Fe) deficiency anemia: Status: Acute (4) Heart failure with reduced ejection fraction: Status: Acute (5) Acute and chronic respiratory failure with hypoxia: Status: Acute DS: Medications Discharge Medications Home Medications: Home Medications Medication Instructions Recorded Confirmed albuterol sulfate 90 mcg/actuation 2 puff INHALATION Q4H PRN 04/19/20 07/01/20 aerosol inhaler apixaban 5 mg tablet 5 mg PO BID 04/19/20 07/01/20 budesonide-formoterol HFA 80 2 inh INHALATION BID 04/19/20 07/01/20 mcg-4.5 mcg/actuation aerosol inhaler magnesium oxide 400 mg (241.3 mg 400 mg PO DAILY 04/19/20 07/01/20 magnesium) tablet spironolactone 25 mg tablet 12.5 mg PO DAILY 04/19/20 07/01/20 tiotropium bromide 18 mcg capsule 1 cap INHALATION DAILY 04/19/20 07/01/20 with inhalation device torsemide 20 mg tablet 60 mg PO BID 04/19/20 07/01/20 lisinopril 5 mg tablet 2.5 mg PO DAILY tab 05/15/20 07/01/20 multivitamin 1 tab PO DAILY 06/05/20 07/01/20 Previous Rx's Medication Instructions Recorded varenicline 1 mg tablet 1 mg PO BID 28 Days #56 tab 06/05/20 dicyclomine 20 mg tablet 20 mg PO QID #30 tab 06/17/20 metoprolol succinate [Toprol XL] 50 mg PO DAILY #30 tab 07/02/20 DS: Summary Hospital Course Hospital Course: Patient was admitted for acute on chronic hypoxic respiratory failure and acute kidney injury due to complete heart block complicated by acute on chronic systolic CHF. Patient underwent temporary pacemaker placement followed by permanent pacemaker placement. He started to naturally diurese and blood pressure and renal function improved. Echo showed ejection fraction 45-50% with a moderately dilated left atrium. Patient's hypoxia returned to baseline. Patient was noted to have iron deficiency anemia. He was evaluated by Gastroenterology recommended outpatient follow-up for scoping. He will continue on Eliquis in the meantime, to be restarted on July 04. His Lopressor 75 mg t.i.d. will be discontinued and he will be started on Toprol 50 mg daily. Patient is now feeling much better will be discharged home. Time Spent with Patient Time attestation: Total time spent providing and/or coordinating discharge services: Discharge coordination time: Greater than 30 minutes Physical Exam Vital Signs: Vital Signs: Last Vital Signs Temp 98.2 F 07/02/20 16:00 Pulse 98 07/02/20 16:00 Resp 18 07/02/20 16:00 BP 133/70 07/02/20 16:00 Pulse Ox 95 07/02/20 16:00 Body Mass Index 28.3 General: AO X 3, no acute distress Resp: CTA bilateral CVS: S1,S2,RRR GI: soft, non tender, non distended Neuro: motor grossly intact Psych: appropriate affect DS: Data Data Completed and Pending Labs on day of discharge: Laboratory Tests 07/01/20 07/01/20 07/01/20 09:10 09:10 09:12 WBC 15.3 H RBC 2.87 L Hgb 8.5 L Hct 26.9 L MCV 93.7 MCH 29.6 MCHC 31.6 RDW 14.5 Plt Count 464 H D MPV 11.1 Immature Gran % (Auto) 1.2 H Neut % (Auto) 76.3 H Lymph % (Auto) 12.0 L [place] % (Auto) 7.8 Eos % (Auto) 1.7 Baso % (Auto) 1.0 Lymph # (Auto) 1.8 [place] # (Auto) 1.2 Eos # (Auto) 0.3 Baso # (Auto) 0.2 Abs Immat Gran (auto) 0.19 H Absolute Neuts (auto) 11.7 H Absolute Nucleated RBC 0.000 Nucleated RBC % (auto) 0.0 PT 24.9 H INR 2.1 H APTT 42.6 H Sodium Potassium Chloride Carbon Dioxide Anion Gap BUN Creatinine Estim Creat Clear Calc Estimated GFR Random Glucose Lactic Acid Lactic Acid Fup @ 2Hr Calcium Magnesium Iron TIBC % Saturation Unsat Iron Binding Ferritin Total Bilirubin Direct Bilirubin AST ALT Alkaline Phosphatase Lactate Dehydrogenase Troponin I High Sens B-Natriuretic Peptide Total Protein Albumin Lipase Procalcitonin 0.22 Urine Color Urine Appearance Urine pH Ur Specific [place] Urine Protein Urine Glucose (UA) Urine Ketones Urine Blood Urine Nitrite Ur Leukocyte Esterase Coronavirus (PCR) COVID-19 ([facility]) COVID-19 Clin Com Influenza Type A (PCR) Influenza Type B (PCR) RSV RNA Qual (PCR) 07/01/20 07/01/20 07/01/20 09:12 09:12 09:12 WBC RBC Hgb Hct MCV MCH MCHC RDW Plt Count MPV Immature Gran % (Auto) Neut % (Auto) Lymph % (Auto) [place] % (Auto) Eos % (Auto) Baso % (Auto) Lymph # (Auto) [place] # (Auto) Eos # (Auto) Baso # (Auto) Abs Immat Gran (auto) Absolute Neuts (auto) Absolute Nucleated RBC Nucleated RBC % (auto) PT INR APTT Sodium 135 Potassium 5.5 H Chloride 97 Carbon Dioxide 24 Anion Gap 20 BUN 66 H Creatinine 1.72 H Estim Creat Clear Calc TNP Estimated GFR 40 Random Glucose 144 H D Lactic Acid 3.4 H* Lactic Acid Fup @ 2Hr Calcium 8.6 Magnesium 2.8 H Iron TIBC % Saturation Unsat Iron Binding Ferritin Total Bilirubin 0.3 Direct Bilirubin 0.2 AST 33 D ALT 64 H Alkaline Phosphatase 108 D Lactate Dehydrogenase 136 Troponin I High Sens 32.2 B-Natriuretic Peptide 2610 H Total Protein 6.3 L Albumin 3.5 Lipase 9 Procalcitonin Urine Color Urine Appearance Urine pH Ur Specific [place] Urine Protein Urine Glucose (UA) Urine Ketones Urine Blood Urine Nitrite Ur Leukocyte Esterase Coronavirus (PCR) COVID-19 ([facility]) COVID-19 Clin Com Influenza Type A (PCR) Influenza Type B (PCR) RSV RNA Qual (PCR) 07/01/20 07/01/20 07/01/20 09:12 09:12 09:24 WBC RBC Hgb Hct MCV MCH MCHC RDW Plt Count MPV Immature Gran % (Auto) Neut % (Auto) Lymph % (Auto) [place] % (Auto) Eos % (Auto) Baso % (Auto) Lymph # (Auto) [place] # (Auto) Eos # (Auto) Baso # (Auto) Abs Immat Gran (auto) Absolute Neuts (auto) Absolute Nucleated RBC Nucleated RBC % (auto) PT INR APTT Sodium Potassium Chloride Carbon Dioxide Anion Gap BUN Creatinine Estim Creat Clear Calc Estimated GFR Random Glucose Lactic Acid Lactic Acid Fup @ 2Hr Calcium Magnesium Iron TIBC % Saturation Unsat Iron Binding Ferritin 268 H Total Bilirubin Direct Bilirubin AST ALT Alkaline Phosphatase Lactate Dehydrogenase Troponin I High Sens B-Natriuretic Peptide Total Protein Albumin Lipase Procalcitonin Urine Color Urine Appearance Urine pH Ur Specific [place] Urine Protein Urine Glucose (UA) Urine Ketones Urine Blood Urine Nitrite Ur Leukocyte Esterase Coronavirus (PCR) NEGATIVE COVID-19 ([facility]) Cancelled COVID-19 Clin Com Cancelled Influenza Type A (PCR) NEGATIVE Influenza Type B (PCR) NEGATIVE RSV RNA Qual (PCR) NEGATIVE 07/01/20 07/01/20 07/02/20 11:15 11:36 09:58 WBC 11.2 H RBC 3.11 L Hgb 9.1 L Hct 28.7 L MCV 92.3 MCH 29.3 MCHC 31.7 RDW 14.3 Plt Count 410 H MPV 10.2 Immature Gran % (Auto) Neut % (Auto) Lymph % (Auto) [place] % (Auto) Eos % (Auto) Baso % (Auto) Lymph # (Auto) [place] # (Auto) Eos # (Auto) Baso # (Auto) Abs Immat Gran (auto) Absolute Neuts (auto) Absolute Nucleated RBC 0.000 Nucleated RBC % (auto) 0.0 PT INR APTT Sodium Potassium Chloride Carbon Dioxide Anion Gap BUN Creatinine Estim Creat Clear Calc Estimated GFR Random Glucose Lactic Acid Lactic Acid Fup @ 2Hr 1.3 Calcium Magnesium Iron TIBC % Saturation Unsat Iron Binding Ferritin Total Bilirubin Direct Bilirubin AST ALT Alkaline Phosphatase Lactate Dehydrogenase Troponin I High Sens B-Natriuretic Peptide Total Protein Albumin Lipase Procalcitonin Urine Color YELLOW Urine Appearance CLEAR Urine pH 6.0 Ur Specific [place] 1.015 Urine Protein NEG Urine Glucose (UA) NEG Urine Ketones NEG Urine Blood NEG Urine Nitrite NEG Ur Leukocyte Esterase NEG Coronavirus (PCR) COVID-19 ([facility]) COVID-19 Clin Com Influenza Type A (PCR) Influenza Type B (PCR) RSV RNA Qual (PCR) 07/02/20 09:58 WBC RBC Hgb Hct MCV MCH MCHC RDW Plt Count MPV Immature Gran % (Auto) Neut % (Auto) Lymph % (Auto) [place] % (Auto) Eos % (Auto) Baso % (Auto) Lymph # (Auto) [place] # (Auto) Eos # (Auto) Baso # (Auto) Abs Immat Gran (auto) Absolute Neuts (auto) Absolute Nucleated RBC Nucleated RBC % (auto) PT INR APTT Sodium 139 Potassium 4.6 Chloride 99 Carbon Dioxide 30 H Anion Gap 15 BUN 47 H Creatinine 1.00 Estim Creat Clear Calc 72.4 Estimated GFR > 60 Random Glucose 187 H Lactic Acid Lactic Acid Fup @ 2Hr Calcium 8.6 Magnesium Iron 32 L TIBC 261 % Saturation 12 L Unsat Iron Binding 229 Ferritin Total Bilirubin Direct Bilirubin AST ALT Alkaline Phosphatase Lactate Dehydrogenase Troponin I High Sens B-Natriuretic Peptide Total Protein Albumin Lipase Procalcitonin Urine Color Urine Appearance Urine pH Ur Specific [place] Urine Protein Urine Glucose (UA) Urine Ketones Urine Blood Urine Nitrite Ur Leukocyte Esterase Coronavirus (PCR) COVID-19 ([facility]) COVID-19 Clin Com Influenza Type A (PCR) Influenza Type B (PCR) RSV RNA Qual (PCR) Preliminary micro results at discharge 07/01/20 09:24 Blood Culture - Preliminary Blood - Venous No growth after 24 hours. 07/01/20 09:10 Blood Culture - Preliminary Blood - Venous No growth after 24 hours. Discharge Plan Discharge Patient Disposition: Home, Self-Care Referrals: Dayna Tian MD [Physician] - 2 Weeks Charbel Poe MD [Primary Care Provider] - Discharge Medications: New metoprolol succinate [Toprol XL] 50 mg tablet extended release 24 hr 50 mg PO DAILY Qty: 30 RF: 0 Continued dicyclomine 20 mg tablet 20 mg PO QID Qty: 30 RF: 3 magnesium oxide 400 mg (241.3 mg magnesium) tablet 400 mg PO DAILY RF: 0 spironolactone 25 mg tablet 12.5 mg PO DAILY RF: 0 torsemide 20 mg tablet 60 mg PO BID RF: 0 albuterol sulfate 90 mcg/actuation HFA aerosol inhaler 2 puff inhalation Q4H PRN (Reason: wheezing) RF: 0 budesonide-formoterol 80-4.5 mcg/actuation HFA aerosol inhaler 2 inh inhalation BID RF: 0 tiotropium bromide 18 mcg capsule, w/inhalation device 1 cap inhalation DAILY RF: 0 lisinopril 5 mg tablet 2.5 mg PO DAILY RF: 0 multivitamin [Daily Multi-Vitamin] Tablet 1 tab PO DAILY RF: 0 Chantix 1 mg tablet 1 mg PO BID 28 Days Qty: 56 RF: 2 Held apixaban 5 mg tablet 5 mg PO BID RF: 0 Hold Instructions: Resume on 07/04/20. Discontinued metoprolol tartrate 50 mg tablet 75 mg PO TID RF: 0 Discharge Orders: Discharge Order (Routine); Ordered 07/02/20 Ordered By: Jakub Contreras Activity on Discharge: As tolerated Activity Restrictions/Additional Instructions: ACTIVITY: * ARM MOVEMENT RESTRICTIONS: No lifting your LEFT arm over your head or behind your back, no pushing/pulling/lifting anything >10lb with your LEFT arm for 6- 8 weeks. This ensures the pacemaker wires stay in place and do not get pulled out accidentally. Make sure you are doing gentle range of motion exercises with the LEFT arm (such as pendulum exercise) to make sure your elbow and shoulder do not get frozen up. * ARM SLING: Keep the sling on until tomorrow, 07/03/20. You may then take the sling off and leave it off. HOWEVER, if you are noticing a difficulty limiting your left arm movement (as outline above) then wear your sling during the day to make sure you are adhering to the restrictions above. * Ask your doctor when you can expect to return to work. * You can still exercise. It is good for your body and your heart. Talk with your doctor about an exercise plan. INCISION CARE: * You may shower starting tomorrow, 07/03/20. Sponge bathe only until then. * Do not submerge yourself in water (baths, pools, etc.) for 2 weeks. * Monitor the incision for increased redness, swelling, bruising, pain, open area, or drainage. OTHER PRECAUTIONS: * Before you receive any treatment, tell all healthcare providers (including your dentist) that you have a pacemaker. * You will be given an ID card that contains information about your pacemaker. Always carry this card with you. You can show this card if your pacemaker s ets off a metal detector. You should also show it to avoid screening with a hand-held security wand. * Keep your cell phone away from your pacemaker. Do not carry the phone in your shirt pocket, even it if is turned off. * Avoid strong magnets. Examples are those used in MRI's or in hand-held security wands. * Avoid strong electrical kaplan. Examples are those made by radio transmitting towers, ham radios, and heavy-duty electrical equipment. * Avoid leaning over the open dhillon of a running car. A running engine creates an electrical field. Most household and yard appliances will not cause any problems. If you use any large power tools, such as an industrial citrix architect, talk with your doctor. MEDICATIONS: * CONTINUE TO HOLD ELIQUIS. YOU MAY RESTART THIS MEDICATION ON 07/04/20. WHEN TO CALL YOUR DOCTOR: Call your doctor immediately if you have any of the following: * Dizziness * Chest pain * Lack of energy * Fainting spells * Twitching chest muscles * Rapid pule or pounding heartbeat * Shortness of breath * Pain around your pacemaker * Fever above 100.4 F (38 C) or other signs of infection (redness, swelling, drainage, or warmth at the incision site). * Hiccups that will not stop FOLLOWUP APPOINTMENTS: * Call Dr. Zapata's office (Thoracic Surgery) as soon as you get home to schedule a followup appointment for 2 weeks from now. The office number is . * Call your public health specialist to make an appointment for the next couple weeks. Make regular follow-up appointments with your doctor. He or she will check the pacemaker to make sure it is working properly. Visit Report Forms: Patient Portal Discharge page Care Plan Goals: recovery Health Concerns: iron defeciency anemia, complete heart block Plan of Treatment: Restart Eliquis on July 04, stop Lopressor and start Toprol 50 mg daily, follow-up with Gastroenterology
--- NOTE | 2020-07-02 20:09 | P.CNGI_ITS ---
History of Present Illness Data of Consult Service Date: 07/02/20 Requesting physician: Jakub Contreras Primary Care Provider: Charbel Poe MD HPI Reason for consult: anemia 70 yr old m with hx of COPD (oxygen dependent 2 L), a-fib/flutter s/p ablation- on eliquis, who I am seeing for anemia He noted increased SOB for about a week, with dizziness and weakness. He was referred to ED and noted to have complete HB with temp pacer inserted followed by a dual pacemaker insertion. As part of work up labs noted with iron def anemia (HGB steady last few readings 9 g/dl but had been 13-14 g/dl range 1 year ago or so). Patient himself denies melena, rectal bleeding, hematuria, nose bleeds, and has felt at baseline prior to this current cardiac related illness. He denied abdominal pain, GERD< dysphagia, or fevers, night sweats. No diarrhea or constipation. He has had colonoscopy many years ago, result not known. Review of Systems Review of Systems: Constitutional: No Weight loss, No Fever, No Chills, + Fatigue, No Malaise Cardiovascular: No Chest Pain, + SOB, + Dyspnea on Exertion, + Orthopnea Respiratory: + Cough, No Sputum, + Wheezing, +Dyspnea Gastrointestinal: No Nausea, No Vomiting, No Diarrhea, No Constipation, No Abdominal pain Genitourinary: No irregular bleeding, No Dysuria Musculoskeletal: No joint pain, No Myalgias, No Joint Swelling Skin: No Skin Lesions, No rash Cardiovascular: Cardiovascular: Denies syncope Neurologic: Denies syncope [facility] Past Medical History Medical History Acute and chronic respiratory failure with hypoxia MARYANN (acute kidney injury) COPD (chronic obstructive pulmonary disease) Heart failure with reduced ejection fraction Iron (Fe) deficiency anemia Paroxysmal atrial fibrillation Smoker Family History Family History Father No problems noted. Mother No problems noted. Social History Social History Household Members: Children Housing: Condominium Alcohol intake: never Smoking Status: Current every day smoker Tobacco Type: Cigarette Cigarettes Per Day: 5 Years Smoked: 50 Second Hand Smoke Exposure: Yes Advance Directives Date on File: 07/01/20 service: No Meds Allergies Allergy/AdvReac Type Severity Reaction Status Date / Time No Known Allergies Allergy Verified 06/05/20 13:37 [No Known Allergies*] Home Medications Medication Instructions Recorded Confirmed Type albuterol sulfate 90 mcg/actuation 2 puff INHALATION Q4H PRN 04/19/20 07/01/20 History aerosol inhaler apixaban 5 mg tablet 5 mg PO BID 04/19/20 07/01/20 History budesonide-formoterol HFA 80 2 inh INHALATION BID 04/19/20 07/01/20 History mcg-4.5 mcg/actuation aerosol inhaler magnesium oxide 400 mg (241.3 mg 400 mg PO DAILY 04/19/20 07/01/20 History magnesium) tablet spironolactone 25 mg tablet 12.5 mg PO DAILY 04/19/20 07/01/20 History tiotropium bromide 18 mcg capsule 1 cap INHALATION DAILY 04/19/20 07/01/20 History with inhalation device torsemide 20 mg tablet 60 mg PO BID 04/19/20 07/01/20 History lisinopril 5 mg tablet 2.5 mg PO DAILY tab 05/15/20 07/01/20 History multivitamin 1 tab PO DAILY 06/05/20 07/01/20 History Physical Exam Vital Signs: Vital Signs: Last Vital Signs Temp 98.2 F 07/02/20 16:00 Pulse 98 07/02/20 16:00 Resp 18 07/02/20 16:00 BP 133/70 07/02/20 16:00 Pulse Ox 95 07/02/20 16:00 Body Mass Index 28.3 Const: General: cooperative, healthy appearing, comfortable and no acute distress Nutritional Appearance: well nourished Orientation/consciousness: oriented to person, oriented to place, oriented to time and patient oriented x3 Limitations: no limitations HENMT: Head: Yes normal to inspection, Yes normocephalic and Yes atraumatic Ears: hearing grossly normal bilaterally General nose exam: Normal external nose present Face and sinus: Yes normal facial exam Mouth: Normal oral and palatal mucosa present Eyes: General: appearance normal, both eyes and all related structures Visual Chapman: normal visual chapman by confrontation Alignment and Position: alignment normal Periorbital: periorbital findings normal Conjunctivae: conjunctivae normal Sclerae: sclerae normal Pupils: Equal, round and reactive pupils present and Pupil accommodation reflex normal EOM: EOMs intact bilaterally Neck: Neck: Yes normal visual inspection, Yes full ROM, Yes no lymphadenopathy, Yes no meningeal signs, Yes trachea midline, Yes supple, No lymphadenopathy, No tender and No tracheal deviation Lymphatic: no lymphadenopathy noted Chest: Chest palpation & inspection: normal inspection of the chest and no crepitus Resp: Other: Patient is speaking in full sentences. Lungs with reduced air entry. Chest expansion symmetrical. Effort & Inspection: normal respiratory effort, able to speak in complete sentences, normal respiratory pattern, audible wheezes, no cough, labored, no pursed lip breathing, no respiratory distress, no stridor, not tachypneic, no tracheal deviation and no use of accessory muscles Auscultation: not clear to auscultation bilaterally, no crackles, rhonchi, wheezes and diminished lung sounds diffuse Cardio: Other: no visible erythema, edema, ecchymosis, or drainage at pacemaker site Jugular venous distension: no JVD Palpation: normal PMI Rate: regular rate and bradycardic Rhythm: regular rhythm Heart sounds: S1 normal heart sound present, S2 normal heart sound present, no click, no gallops, no murmurs and no rubs GI: Inspection: Yes normal to inspection Palpation (GI): Soft to palpation, nontender, no guarding and not rigid Auscultation: normal bowel sounds : General: Yes no CVA tenderness Back/Spine/Pelvis: Back: no CVA tenderness Thoracic/Lumbar Spine: thoracic and lumbar spine normal to inspection Skin: General skin exam: no rashes or lesions noted and dry skin Lesions: no lesions Rashes: no rashes Wounds: no wounds Neuro: General: oriented to person, oriented to place, oriented to time, patient oriented x3, gait normal and no meningeal signs Cranial nerves: Yes Equal, round and reactive pupils present Gait exam (Neuro): Normal gait present Extrem: General: Yes normal to inspection, Yes full ROM, Yes capillary refill normal, Yes no clubbing, cyanosis or edema, Yes no pedal edema and Yes normal gait Psych: Appearance: grossly normal and well kempt Mental Status: mental status grossly normal Speech and movement: Normal speech and movement present and Clear speech present Affect: normal affect Attitude: cooperative Thought process: Normal thought process present Thought content: Normal thought content present Results Labs CBC & Chem 7: 07/02/20 09:58 07/02/20 09:58 Labs: Short CBC 07/02/20 Range/Units 09:58 WBC 11.2 H (4.8-10.8) X10*3/uL Hgb 9.1 L (14.0-18.0) g/dl Hct 28.7 L (42-52) % Plt Count 410 H (160-400) X10*3/uL BMP 07/02/20 09:58 Sodium 139 Potassium 4.6 Chloride 99 Carbon Dioxide 30 H BUN 47 H Creatinine 1.00 Calcium 8.6 Microbiology Microbiology Results: Microbiology 07/01/20 09:24 Blood - Venous Blood Culture - Preliminary No growth after 24 hours. 07/01/20 09:10 Blood - Venous Blood Culture - Preliminary No growth after 24 hours. Assessment and Plan (1) Iron (Fe) deficiency anemia: Qualifiers: Iron deficiency anemia type: other iron deficiency Qualified Code(s): D50.8 - Other iron deficiency anemias Status: Acute 1/ Gradually worsening iron def anemia, many possibilities incl AVM, underlying neoplasia, polyps, ulcers/erosions, malabsorption, or related to mucosal irritation from eliquis He wants to go home to recover rather than stay as inpatient for further endoscopic assessment which is reasonable as his HGB is stable and he has no overt GI bleeding PLAN: 1/ he has apptm with Dr Whitten cardiology this week, janeth cc him to see if pt ok for early o/p endoscopy which I will arrange and if can stop eliquis vs bridging 2/ will also need pre op anesthesia assessment given his COPD and oxygen dependance 3/ Can be commenced on iron supplementation meantime.
== END 2020-07-02 18:45 | disposition home or self-care (01) | DRG 242 ==
LOC: HO.ED 11:02 → HO.ICU 11:22 → HO.IMC 15:14
PROVIDERS: Physician Assistant; Surgery; Admitting Provider Internal Medicine Cardiovascular Disease; Emergency Provider Emergency Medicine; PCP Internal Medicine; Visit Provider Internal Medicine
PROC: 0JH606Z Insertion of Pacemaker, Dual Chamber into Chest Subcutaneous Tissue and Fascia, Open Approach (ICD-10-PCS; principal; 2020-07-01 15:00)
DX: I44.2 Atrioventricular block, complete (principal); J96.21 Acute and chronic respiratory failure with hypoxia; I50.23 Acute on chronic systolic (congestive) heart failure; N17.9 Acute kidney failure, unspecified; I48.0 Paroxysmal atrial fibrillation; F17.210 Nicotine dependence, cigarettes, uncomplicated; D50.8 Other iron deficiency anemias; D63.1 Anemia in chronic kidney disease; J44.9 Chronic obstructive pulmonary disease, unspecified; Z71.6 Tobacco abuse counseling; Z20.822 Contact with and (suspected) exposure to COVID-19; Z79.01 Long term (current) use of anticoagulants; Z79.899 Other long term (current) drug therapy
CPT/HCPCS: 0241U; 36415; 71045; 80048; 80076; 81003; 82728; 83540; 83605; 83615; 83690; 83735; 83880; 84145; 84484; 85025; 85027; 85610; 85730; 87040; 87635; 93005; 93306; 94640; 99285; C1785; C1892; C1898; J0610; J0690; J1100; J1610; J2250; J2370; J2405; J2930; J3010; J3370; J3475; Q9957

== ENCOUNTER → 2020-07-19 08:28 | Outpatient (BNVA) | payer MEDICARE, SELFPAY | PROVIDERS: PCP Internal Medicine; Visit Provider Surgery | DX: I44.2 Atrioventricular block, complete (principal); Z95.0 Presence of cardiac pacemaker | CPT/HCPCS: 99212 ==

== ENCOUNTER → 2020-08-01 10:19 | Outpatient (BNVA) | payer MEDICARE, SELFPAY | PROVIDERS: PCP Internal Medicine; Visit Provider Internal Medicine | DX: J44.9 Chronic obstructive pulmonary disease, unspecified (principal); F17.200 Nicotine dependence, unspecified, uncomplicated; R09.02 Hypoxemia | CPT/HCPCS: 99212 ==

== ENCOUNTER → 2020-08-05 13:28 | Outpatient (BNVA) | payer MEDICARE, SELFPAY | PROVIDERS: PCP Internal Medicine; Visit Provider Internal Medicine | DX: Z45.018 Encounter for adjustment and management of other part of cardiac pacemaker (principal); I48.0 Paroxysmal atrial fibrillation; I44.2 Atrioventricular block, complete; I50.22 Chronic systolic (congestive) heart failure; R00.0 Tachycardia, unspecified; J44.9 Chronic obstructive pulmonary disease, unspecified | CPT/HCPCS: 93005; 93288; 99212 ==

== ENCOUNTER 2020-08-23 09:15 | Outpatient (REF) | payer MEDICARE, SELFPAY ==
[2020-08-23 10:54] LABS: MANUAL DIFF FLAG NO
[2020-08-23 11:00] LABS: Basophils Absolute Auto 0.1 X10*3/uL (0.0-0.2); Basophils Percent Auto 1.1 % (0-2); Eosinophils Absolute Auto 0.4 X10*3/uL (0.0-0.4); Eosinophils Percent Auto 3.6 % (0-4); Hematocrit 42.5 % (42-52); Hemoglobin 13.2 g/dl (14.0-18.0); Imm Gran Abs Auto 0.06 X10*3/uL (0.00-0.03); Imm Gran Pct Auto 0.5 % (0.0-0.4); Lymphocytes Percent Auto 17.9 % (20-40); Mean Corpuscular HGB Conc 31.1 g/dl (31.0-36.0); Mean Corpuscular Hemoglobin 28.6 pg (27.0-33.0); Mean Corpuscular Volume 92.2 fL (80-98); Mean Platelet Volume 10.4 fL (9.4-12.4); Monocytes Percent Auto 9.1 % (2-11); Neutrophils Absolute Auto 7.7 X10*3/uL (2.0-8.3); Neutrophils Percent Auto 67.8 % (45-73); Platelet Count 275 X10*3/uL (160-400); Red Blood Count 4.61 X10*6/uL (4.60-5.80); Red Cell Distribution Width 15.6 % (11.0-16.0); White Blood Count 11.3 X10*3/uL (4.8-10.8)
[2020-08-23 11:21] LABS: Alanine Aminotransferase 11 U/L (0-40); Albumin Level 4.5 g/dL (3.5-5.0); Alkaline Phosphatase 100 U/L (39-117); Anion Gap 16 (12-20); Aspartate Amino Transferase 18 U/L (5-37); Bilirubin Total 0.3 mg/dL (0.0-1.0); Blood Urea Nitrogen 21 mg/dL (9-16); Calcium 9.7 mg/dL (8.4-10.2); Carbon Dioxide 34 mmol/L (22-29); Chloride 95 mmol/L (96-108); Estimated Glomerular Filt Rate > 60; Glucose Random 100 mg/dL (60-115); Potassium 5.1 mmol/L (3.3-5.1); Sodium 140 mmol/L (135-145); Total Protein 7.6 g/dL (6.5-8.0)
[2020-08-23 11:44] LABS: Ferritin 29 ng/mL (20-250)
== END 2020-08-23 09:16 | disposition home or self-care (01) ==
LOC: HO.LAB 09:15
PROVIDERS: PCP Internal Medicine; Visit Provider Internal Medicine Gastroenterology
DX: D50.8 Other iron deficiency anemias (principal)
CPT/HCPCS: 36415; 80053; 82728; 85025; 99212

== ENCOUNTER → 2020-09-02 11:49 | Outpatient (BNVA) | payer MEDICARE, SELFPAY | PROVIDERS: PCP Internal Medicine; Visit Provider Internal Medicine | DX: Z01.810 Encounter for preprocedural cardiovascular examination (principal); I48.0 Paroxysmal atrial fibrillation; I44.2 Atrioventricular block, complete; I50.22 Chronic systolic (congestive) heart failure; R00.0 Tachycardia, unspecified; J44.9 Chronic obstructive pulmonary disease, unspecified; F17.200 Nicotine dependence, unspecified, uncomplicated; Z79.899 Other long term (current) drug therapy; Z71.6 Tobacco abuse counseling | CPT/HCPCS: 99212 ==

== ENCOUNTER 2020-09-11 14:14 | Outpatient (REF) | payer MEDICARE, SELFPAY ==
--- NOTE | ~2020-09-11 | US_ITS ---
EXAMINATION: US LOWER EXTREMITY DUPLEX, RIGHT CLINICAL INFORMATION: History of peripheral vascular disease. TECHNIQUE: Real-time ultrasound and Doppler techniques (integrating B-mode 2-D vascular images, Doppler spectral analysis and color flow Doppler imaging) were utilized to interrogate the lower extremities. COMPARISON: None FINDINGS: RIGHT LEG: Common femoral artery: 109 cm/s, Triphasic Profunda femoris artery: 94.3 cm/s, Triphasic Superficial femoral artery (proximal): 86.8 cm/s, Triphasic Superficial femoral artery (mid): 134 cm/s, Triphasic Superficial femoral artery (distal): 123 cm/s, Triphasic Popliteal artery: 91.5 cm/s, Triphasic Posterior tibial artery: 76.8 cm/s, Triphasic ADDITIONAL: There is a prominent, morphologically normal right groin lymph node measuring up to 8 mm in short axis. US/US arterial duplex LE RT IMPRESSION: No evidence of hemodynamically significant stenosis involving the right lower extremity. Mildly elevated velocity within the mid SFA suggests mild, nonhemodynamically significant stenosis.
--- NOTE | ~2020-09-11 | XR_ITS ---
EXAMINATION: XR CHEST CLINICAL INFORMATION: Unspecified atrial fibrillation COMPARISON: 07/01/2020 TECHNIQUE: 2 views of the chest were obtained. FINDINGS: Left chest wall dual-lead pacer is unchanged. The lungs are well expanded. Small right pleural effusion, fairly similar to prior. Improved aeration of the right lung base. No pneumothorax. The cardiomediastinal silhouette is unchanged, with a calcified aorta. XR/XR chest 2V IMPRESSION: Small right pleural effusion is similar to prior. There may be a component of pleural thickening. Improved aeration at the right lung base compared to prior.
== END 2020-09-11 14:15 | disposition home or self-care (01) ==
LOC: HO.US 14:14
PROVIDERS: PCP Internal Medicine; Visit Provider Internal Medicine
DX: I73.9 Peripheral vascular disease, unspecified (principal); I48.91 Unspecified atrial fibrillation; J44.9 Chronic obstructive pulmonary disease, unspecified
CPT/HCPCS: 71046; 93926

== ENCOUNTER 2020-09-19 11:07 | Day surgery (SDC) | payer MEDICARE, SELFPAY ==
[2020-09-16 09:32] VITALS: BMI 29.2
--- NOTE | 2020-09-18 09:48 | HO.ANESPROP2 ---
Documented by User: Blaire Verdugoney 09/18/20 09:55 HPI - Anesthesia Eval Consult details Narrative: 70yo M for Upper Endoscopy and Colonoscopy s/p pacer insertion for CHB 06/2020 with TIVA Eliquis for afib/flutter PMFSH Active Problems Active Problems: All Active Problems (Updated 09/10/20 @ 11:27 by Charbel Poe MD) Peripheral vascular disease (Acute) Preoperative cardiovascular examination (Acute) Sinus tachycardia (Acute) Chronic systolic (congestive) heart failure (Acute) Exercise hypoxemia (Acute) Hypertension (Acute) Hypertension (Acute) Pacemaker (Acute) Iron (Fe) deficiency anemia (Acute) MARYANN (acute kidney injury) (Acute) Heart failure with reduced ejection fraction (Acute) Acute and chronic respiratory failure with hypoxia (Acute) Biventricular failure (Acute) Paroxysmal atrial fibrillation (Acute) Complete heart block (Acute) COPD (chronic obstructive pulmonary disease) (Acute) Smoker (Acute) Past Medical History Medical History Acute and chronic respiratory failure with hypoxia MARYANN (acute kidney injury) Blind right eye Chronic systolic (congestive) heart failure COPD (chronic obstructive pulmonary disease) Exercise hypoxemia Heart failure with reduced ejection fraction History of diverticulitis Hx of Stewart's palsy Hypertension Hypertension Iron (Fe) deficiency anemia Paroxysmal atrial fibrillation Smoker Family History Family History Father No problems noted. Mother No problems noted. Brother Esophageal cancer Surgical History Surgical History H/O colonoscopy History of permanent cardiac pacemaker placement Social History Social History Household Members: Children Housing: [facility] Alcohol intake: current Alcohol intake frequency: holidays/special occasions only Smoking Status: Current every day smoker Tobacco Type: Cigarette Cigarettes Per Day: 10 Years Smoked: 50 Second Hand Smoke Exposure: Yes Use of substances other than those prescribed or required for medical reasons: No Advance Directives: Yes Advance Directives on File: Yes Advance Directives Date on File: 07/01/20 service: No Meds Allergies Allergy/AdvReac Type Severity Reaction Status Date / Time No Known Allergies Allergy Verified 09/19/20 11:31 [No Known Allergies*] Home Medications Medication Instructions Recorded Confirmed Last Taken Type albuterol sulfate 90 mcg/actuation 2 puff INHALATION Q4H PRN 04/19/20 09/02/20 Unknown History aerosol inhaler multivitamin 1 tab PO DAILY 06/05/20 09/02/20 Unknown History magnesium oxide 400 mg (241.3 mg 400 mg PO DAILY 09/02/20 09/02/20 Unknown History magnesium) tablet Exam Exam Date and Time: September 18, 2020 0948 Height,Weight and Vital Signs: Height 5 ft 7 in Weight 84.822 kg Pertinent Lab Results Pertinent Lab Results: Laboratory Tests 08/23/20 08/23/20 10:23 10:23 WBC 11.3 H Hgb 13.2 L D Hct 42.5 D Plt Count 275 D Sodium 140 Potassium 5.1 Chloride 95 L Carbon Dioxide 34 H BUN 21 H D Creatinine 0.93 Narrative Narrative: Pacemaker interrogated 09/02/20. This is a dual-chamber device programmed in DDD mode. Battery life 6 years and 7 months. Normal lead parameters. Thresholds were manually checked and reprogrammed appropriately. Pacing in the atrium 0%. Pacing in the ventricles 100%. Atrial arrhythmia burden-0%. Overall, normal device function. EKG 07/2020 A-sensed, V-paced rhythm Echo 06/2020 Conclusions: - The left ventricular systolic function is mildly decreased. The visually estimated ejection fraction is between 45-50%. - The left atrium is moderately dilated. - No obvious valvular pathology seen on this study. Assessment and Plan Assessment Anesthesia Assessment: Chart Reviewed Documented by User: Trista Napoles 09/19/20 12:33 [facility] Past Medical History Medical History Acute and chronic respiratory failure with hypoxia MARYANN (acute kidney injury) Blind right eye Chronic systolic (congestive) heart failure COPD (chronic obstructive pulmonary disease) Exercise hypoxemia Heart failure with reduced ejection fraction History of diverticulitis Hx of Stewart's palsy Hypertension Hypertension Iron (Fe) deficiency anemia Paroxysmal atrial fibrillation Smoker Family History Family History Father No problems noted. Mother No problems noted. Brother Esophageal cancer Family history of problems with anesthesia: No Surgical History Surgical History H/O colonoscopy History of permanent cardiac pacemaker placement History of Problems with Anesthesia: No Social History Social History Household Members: Children Housing: [facility] Alcohol intake: current Alcohol intake frequency: holidays/special occasions only Smoking Status: Current every day smoker Tobacco Type: Cigarette Cigarettes Per Day: 10 Years Smoked: 50 Second Hand Smoke Exposure: Yes Use of substances other than those prescribed or required for medical reasons: No Advance Directives: Yes Advance Directives on File: Yes Advance Directives Date on File: 07/01/20 service: No Meds Allergies Allergy/AdvReac Type Severity Reaction Status Date / Time No Known Allergies Allergy Verified 09/19/20 11:31 [No Known Allergies*] Home Medications Medication Instructions Recorded Confirmed Last Taken Type albuterol sulfate 90 mcg/actuation 2 puff INHALATION Q4H PRN 04/19/20 09/02/20 Unknown History aerosol inhaler multivitamin 1 tab PO DAILY 06/05/20 09/02/20 Unknown History magnesium oxide 400 mg (241.3 mg 400 mg PO DAILY 09/02/20 09/02/20 Unknown History magnesium) tablet Exam Height,Weight and Vital Signs: Vital Signs Temp Pulse Resp BP Pulse Ox 09/19/20 12:24 92 09/19/20 11:39 98.4 F 94 24 H 116/71 91 L Airway Mallampati Class: III TM Dist: >3cm Neck ROM: Full Heart: RRR Lungs: Bilateral Wheezes Assessment and Plan Assessment Anesthesia Assessment: Anesthesia Plan Discussed and Chart Reviewed Final Anesthetic Review NPO: Yes ASA Class: III Final Preanesthetic Review: No Changes in Pt Med Stat, Meds/Allgs Chart Reviewed, Consent Obtained/Reviewed and Anes Risks/Benef Reviewed Patient Risk: High Procedure Risk: Low Assessment/Block/Sedation in SS: Assess/Block/Sedation-SS Anesthetic Plan Anesthetic Plan: MAC: Disposition: Extended PACU
[2020-09-19 11:39] VITALS: BP 116/71; PULSE 94; RESP 24; TEMP 36.9; O2SAT 91; BMI 29.0
[2020-09-19] MEDS: Lactated Ringers 1,000 ML 50 ML IV (12:03)
[2020-09-19] MEDS: Albuterol Sulfate (0.083%) 2.5 MG/3 ML VIAL.NEB INHALE (12:23)
[2020-09-19 12:24] VITALS: PULSE 92; O2SAT 92
--- NOTE | 2020-09-19 12:31 | MHC.SHP ---
Pre-Procedural Eval Section B Chief Complaint: Iron Deficiency Anemia Details of Present Illness: brother with esophageal cancer Relevant Family History (Specify if Yes): Yes Relevant Social History: Tobacco Use Present Medications: see Short Stay Collaborative assessment Medical History: Significant History (Acute and chronic respiratory failure with hypoxia MARYANN (acute kidney injury) Chronic systolic (congestive) heart failure COPD (chronic obstructive pulmonary disease) Exercise hypoxemia Heart failure with reduced ejection fraction Hypertension Hypertension Iron (Fe) deficiency anemia Paroxysmal atria) History of Previous Operations: Relevant previous surgery/procedure and date(s) (pacemaker insertion) Allergies: Allergies Allergy/AdvReac Type Severity Reaction Status Date / Time No Known Allergies Allergy Verified 09/19/20 11:31 [No Known Allergies*] Review of Systems Sugical H&P ROS: Negative: Constitution, Cardiovascular, Respiratory, Neurological, Psychiatric, Hem-Onc, Allergic/Immunologic, Gastrointestinal, Genitourinary, Musculoskeletal, Integumentary, Endocrine and Eyes/Ears/Nose/Throat Exam Surgical H&P Exam: Normal: HEENT, Normal: Heart, Normal: Extremities, Normal: Abdomen, Normal: Skin and Normal: Neurological and Significant Findings: Lungs (diminished breath sounds) Plan Diagnosis/Plan: Unchanged I have reviewed the history and physical and performed a pertinent physical examination on my patient. No changes have occurred unless specified.
--- NOTE | 2020-09-19 12:51 | PM.OP ---
Brief Operative Note Date of Service: 09/19/20 Pre-op diagnosis: anemia Post-op diagnosis: same Procedure: see op note Surgeon: Dayna Tian MD Anesthesia: MAC Estimated blood loss (mL): 0 Condition: stable Disposition: PACU
--- NOTE | 2020-09-19 12:52 | W.PM.OPN ---
Operative Note Operative Note Date of Service: 09/19/20 Narrative: Operative Information Procedure Description: EGD, Colonoscopy FLEXIBLE TRANSORAL UPPER GASTROINTESTINAL ENDOSCOPY AND COLONOSCOPY PROCEDURE NOTE UPPER ENDOSCOPY Consent: Indications for the procedure and potential complications of bleeding, perforation, reaction to medications and missed diagnosis were discussed with the patient and informed consent was obtained. Instrument: Olympus GIF H 190 J mid size upper endoscope Monitoring: Vital signs and clinical assessment, continuous EKG monitoring, Pulse oximetry, Carbon Dioxide monitoring and blood pressure monitoring were done throughout the procedure. Procedure: The patient was placed in the left lateral decubitis position and pre-procedure medications were administered and a bite block was placed. The endoscope was inserted into the mouth and advanced under direct vision to the third part of duodenum. A careful inspection was made as the upper endoscope was withdrawn including a retroflexed examination of the proximal stomach; Findings and interventions are described below. Findings: Larynx:normal Esophagus: GE junction at 42 cm, diaphragm hiatus at 45 cm, non obstructive schatzki ring noted with surrounding esophagitis Stomach: patchy streaky gastritis with erosions and ulcerations at the antrum. Biopsies were obtained. Grade 2 flap valve on retroflexed examination of the cardia. Duodenum: Normal bulb and duodenum, bx taken, second part was difficult to get to due to tight angle Intervention: Biopsies as noted above COLONOSCOPY Instrument: Olympus variable stiffness pediatric scope 190L Colonoscopy Monitoring: Vital signs and clinical assessment, continuous EKG monitoring, Pulse oximetry, Carbon Dioxide monitoring and blood pressure monitoring were done throughout the procedure. Colon withdrawal time was 11 minutes. Procedure: The patient was placed in the left lateral decubitis position and pre-procedure medications were administered. After a digital rectal examination of the ano-rectum, the video colonoscope was inserted into the rectum and advanced through the colon to the cecum/TI. The colonoscope was slowly withdrawn in a retrograde panoramic fashion and the colon mucosa was carefully examined including a retroflexed view of the rectum. Findings and interventions are described below. Procedure Difficulty: moderate due to looping and tortuous colon Findings: Terminal Ileum-normal Cecum:normal Ascending Colon: 9-10 mm sessile polyp removed with cold snare Transverse Colon- 10-11 mm sessile polyp removed with cold snare Descending Colon:normal Sigmoid Colon: moderate severe diverticulosis with tight sigmoid Rectum: Retroflexion with small internal hemorrhoids, grade I, 5-6 mm sessile polyp removed with cold snare Anorectum - normal Colon preparation: [place] Bowel Preparation Scale Right colon; 2 Transverse colon: 3 Left colon; 2 (0 = Unprepared colon segment with mucosa not seen due to solid stool that cannot be cleared. 1 = Portion of mucosa of the colon segment seen, but other areas of the colon segment not well seen due to staining, residual stool and/or opaque liquid. 2 = Minor amount of residual staining, small fragments of stool and/or opaque liquid, but mucosa of colon segment seen well. 3 = Entire mucosa of colon segment seen well with no residual staining, small fragments of stool or opaque liquid) Impression and Post Procedure Diagnosis: Endoscopy Findings: erosive gastritis and ucleration schatzki ring esophagitis Colonoscopy Findings: polyps internal hemorrhoids diverticular disease Plan: Await Pathology results, if h pylori pos the treat, suspect his anemia to be due to erosions and uclerations Repeat Colonoscopy in 3-5 years or earlier if clinically indicated High fiber diet leaflet avoid straining at stool, epsom salts and sitz bath, anusol supps or cream commence low dose PPI Above findings were reviewed with the patient and relevant handouts were provided if indicated.
[2020-09-19 13:45] VITALS: BP 132/77; PULSE 84; RESP 18; TEMP 36.3; O2SAT 100
[2020-09-19 14:22] VITALS: BP 110/59; PULSE 85; RESP 16; TEMP 36.3; O2SAT 90
== END 2020-09-19 14:54 | disposition home or self-care (01) ==
PROVIDERS: PCP Internal Medicine; Visit Provider Internal Medicine Gastroenterology
PROC: (CPT 45380; principal; 2020-09-19 13:00)
DX: D50.9 Iron deficiency anemia, unspecified (principal); D12.2 Benign neoplasm of ascending colon; D12.3 Benign neoplasm of transverse colon; K63.5 Polyp of colon; K57.30 Diverticulosis of large intestine without perforation or abscess without bleeding; K64.8 Other hemorrhoids; K22.2 Esophageal obstruction; K20.90 Esophagitis, unspecified without bleeding; K29.80 Duodenitis without bleeding; K25.9 Gastric ulcer, unspecified as acute or chronic, without hemorrhage or perforation; K44.9 Diaphragmatic hernia without obstruction or gangrene; I48.0 Paroxysmal atrial fibrillation; I11.0 Hypertensive heart disease with heart failure; I50.22 Chronic systolic (congestive) heart failure; J44.9 Chronic obstructive pulmonary disease, unspecified; F17.210 Nicotine dependence, cigarettes, uncomplicated; Z79.01 Long term (current) use of anticoagulants; Z95.0 Presence of cardiac pacemaker; Z80.0 Family history of malignant neoplasm of digestive organs
CPT/HCPCS: 45380; 43239; 88305; 88342; 94640; J3010

== ENCOUNTER → 2020-12-09 10:31 | Outpatient (BNVA) | payer MEDICARE, SELFPAY | PROVIDERS: PCP Internal Medicine; Visit Provider Internal Medicine | DX: J44.9 Chronic obstructive pulmonary disease, unspecified (principal); R09.02 Hypoxemia; F17.200 Nicotine dependence, unspecified, uncomplicated | CPT/HCPCS: 99212 ==

== ENCOUNTER → 2021-03-10 12:44 | Outpatient (BNVA) | payer MEDICARE, SELFPAY | PROVIDERS: PCP Internal Medicine; Referring Provider Internal Medicine; Visit Provider Internal Medicine | DX: Z45.018 Encounter for adjustment and management of other part of cardiac pacemaker (principal); I48.0 Paroxysmal atrial fibrillation; I44.2 Atrioventricular block, complete; I50.22 Chronic systolic (congestive) heart failure; R00.0 Tachycardia, unspecified; J44.9 Chronic obstructive pulmonary disease, unspecified | CPT/HCPCS: 99212 ==

== ENCOUNTER 2021-03-17 13:40 | Outpatient (REF) | payer MEDICARE, SELFPAY ==
[2021-03-17 14:03] LABS: MANUAL DIFF FLAG NO
[2021-03-17 14:19] LABS: Basophils Absolute Auto 0.1 X10*3/uL (0.0-0.2); Basophils Percent Auto 0.8 % (0-2); Eosinophils Absolute Auto 0.3 X10*3/uL (0.0-0.4); Hemoglobin 13.7 g/dl (14.0-18.0); Imm Gran Abs Auto 0.07 X10*3/uL (0.00-0.03); Imm Gran Pct Auto 0.6 % (0.0-0.4); Lymphocytes Absolute Auto 1.5 X10*3/uL (1.2-4.9); Lymphocytes Percent Auto 13.9 % (20-40); Mean Corpuscular HGB Conc 31.9 g/dl (31.0-36.0); Mean Corpuscular Volume 90.9 fL (80-98); Mean Platelet Volume 10.5 fL (9.4-12.4); Monocytes Absolute Auto 1.1 X10*3/uL (0.1-1.2); Monocytes Percent Auto 9.6 % (2-11); Neutrophils Absolute Auto 7.9 X10*3/uL (2.0-8.3); Neutrophils Percent Auto 72.1 % (45-73); Platelet Count 266 X10*3/uL (160-400); Red Blood Count 4.73 X10*6/uL (4.60-5.80); Red Cell Distribution Width 13.8 % (11.0-16.0)
[2021-03-17 14:59] LABS: Alanine Aminotransferase 14 U/L (0-40); Albumin Level 4.2 g/dL (3.5-5.0); Alkaline Phosphatase 82 U/L (39-117); Anion Gap 17 (12-20); Aspartate Amino Transferase 15 U/L (5-37); Bilirubin Total < 0.2 mg/dL (0.0-1.0); Blood Urea Nitrogen 24 mg/dL (9-16); Calcium 9.1 mg/dL (8.4-10.2); Carbon Dioxide 32 mmol/L (22-29); Chloride 96 mmol/L (96-108); Cholesterol 223 mg/dL; Estimated Glomerular Filt Rate 56; Glucose Fasting 103 mg/dL (60-99); HDL Cholesterol 35 mg/dL; LDL Cholesterol Calculated 142 mg/dl; Potassium 4.5 mmol/L (3.3-5.1); Sodium 140 mmol/L (135-145); Total Protein 6.9 g/dL (6.5-8.0); Triglycerides 233 mg/dL
== END 2021-03-17 13:41 | disposition home or self-care (01) ==
LOC: HO.LAB 13:40
PROVIDERS: PCP Internal Medicine; Visit Provider Internal Medicine
DX: Z00.00 Encounter for general adult medical examination without abnormal findings (principal); E11.9 Type 2 diabetes mellitus without complications
CPT/HCPCS: 36415; 80053; 80061; 85025

== ENCOUNTER → 2021-04-07 10:24 | Outpatient (BNVA) | payer MEDICARE, SELFPAY | PROVIDERS: PCP Internal Medicine; Visit Provider Internal Medicine | DX: J44.9 Chronic obstructive pulmonary disease, unspecified (principal); R09.02 Hypoxemia; F17.200 Nicotine dependence, unspecified, uncomplicated | CPT/HCPCS: 99212 ==

== ENCOUNTER 2021-08-21 09:58 | Outpatient (REF) | payer MEDICARE, SELFPAY ==
[2021-08-21 10:17] LABS: MANUAL DIFF FLAG NO
[2021-08-21 10:32] LABS: Basophils Absolute Auto 0.1 X10*3/uL (0.0-0.2); Basophils Percent Auto 1.1 % (0-2); Eosinophils Absolute Auto 0.5 X10*3/uL (0.0-0.4); Eosinophils Percent Auto 3.8 % (0-4); Hematocrit 42.3 % (42.0-52.0); Imm Gran Abs Auto 0.07 X10*3/uL (0.00-0.03); Imm Gran Pct Auto 0.6 % (0.0-0.4); Lymphocytes Absolute Auto 2.1 X10*3/uL (1.2-4.9); Lymphocytes Percent Auto 16.6 % (20-40); Mean Corpuscular HGB Conc 30.7 g/dl (31.0-36.0); Mean Platelet Volume 10.8 fL (9.4-12.4); Neutrophils Absolute Auto 8.8 x10*3/uL (2.0-8.3); Neutrophils Percent Auto 69.9 % (45-73); Platelet Count 254 X10*3/uL (160-400); Red Blood Count 4.65 X10*6/uL (4.60-5.80); Red Cell Distribution Width 14.6 % (11.0-16.0); White Blood Count 12.6 X10*3/uL (4.8-10.8)
[2021-08-21 11:21] LABS: Alanine Aminotransferase 10 U/L (0-40); Albumin Level 4.2 g/dL (3.5-5.0); Alkaline Phosphatase 98 U/L (39-117); Anion Gap 11 (12-20); Aspartate Amino Transferase 14 U/L (5-37); Bilirubin Total 0.3 mg/dL (0.0-1.0); Blood Urea Nitrogen 19 mg/dL (9-16); Calcium 9.8 mg/dL (8.4-10.2); Carbon Dioxide 34 mmol/L (22-29); Chloride 100 mmol/L (96-108); Cholesterol 241 mg/dL; Estimated Glomerular Filt Rate > 60; Glucose Fasting 97 mg/dL (60-99); HDL Cholesterol 39 mg/dL; LDL Cholesterol Calculated 154 mg/dl; Potassium 5.2 mmol/L (3.3-5.1); Sodium 140 mmol/L (135-145); Total Protein 6.9 g/dL (6.5-8.0); Triglycerides 242 mg/dL
[2021-08-21 11:51] LABS: Thyroid Stimulating Hormone 1.15 uIU/mL (0.32-4.0)
== END 2021-08-21 09:59 | disposition home or self-care (01) ==
LOC: HO.LAB 09:58
PROVIDERS: PCP Internal Medicine; Visit Provider Internal Medicine
DX: Z00.00 Encounter for general adult medical examination without abnormal findings (principal); Z13.0 Encounter for screening for diseases of the blood and blood-forming organs and certain disorders involving the immune mechanism; J44.9 Chronic obstructive pulmonary disease, unspecified; R09.02 Hypoxemia; F17.200 Nicotine dependence, unspecified, uncomplicated
CPT/HCPCS: 36415; 80053; 80061; 84443; 85025; 99212

== ENCOUNTER → 2021-09-08 12:39 | Outpatient (BNVA) | payer MEDICARE, SELFPAY | PROVIDERS: PCP Internal Medicine; Referring Provider Internal Medicine; Visit Provider Internal Medicine | DX: Z45.018 Encounter for adjustment and management of other part of cardiac pacemaker (principal); I48.0 Paroxysmal atrial fibrillation; I44.2 Atrioventricular block, complete; I50.22 Chronic systolic (congestive) heart failure; R00.0 Tachycardia, unspecified; J44.9 Chronic obstructive pulmonary disease, unspecified | CPT/HCPCS: 93005; 99212 ==

== ENCOUNTER → 2021-10-23 13:53 | Outpatient (BNVA) | payer MEDICARE, SELFPAY | PROVIDERS: PCP Internal Medicine; Visit Provider Internal Medicine | DX: J44.9 Chronic obstructive pulmonary disease, unspecified (principal); R09.02 Hypoxemia; F17.210 Nicotine dependence, cigarettes, uncomplicated | CPT/HCPCS: 99212 ==

== ENCOUNTER → 2021-12-30 12:20 | Outpatient (BNVA) | payer MEDICARE, SELFPAY | PROVIDERS: PCP Internal Medicine; Visit Provider Internal Medicine | DX: J44.9 Chronic obstructive pulmonary disease, unspecified (principal); R09.02 Hypoxemia; F17.210 Nicotine dependence, cigarettes, uncomplicated | CPT/HCPCS: 99212 ==

== ENCOUNTER 2022-01-16 15:02 | Outpatient (REF) | payer MEDICARE, SELFPAY ==
--- NOTE | ~2022-01-16 | CT_ITS ---
EXAMINATION: CT CHEST SCREENING CLINICAL INFORMATION: Smoking history COMPARISON: None. TECHNIQUE: Multidetector volumetric CT imaging of the chest is performed without contrast using low dose technique. Additional 2D coronal and sagittal reformatted images and axial 3D maximum intensity projection (MIP) images are generated on the CT workstation. This CT examination was performed using dose optimization techniques as appropriate, variously including the following: *Automated exposure control *Adjustment of mA and/or kV according to patient size (this includes techniques or standardized protocols for targeted exams where dose is matched to indication/reason for exam; i.e. extremities or head) *Use of iterative reconstruction technique DLP: 74 mGy-cm FINDINGS: LUNGS: There is evidence of emphysema. There are scattered areas of bronchial wall thickening, increased peribronchial attenuation and peribronchial nodules. This is greatest in the right upper lobe. Largest nodule measures 9 mm axial image 203 series 5. There is a mixed cystic or bronchiectatic and reticular area in the right upper lobe that measures 1 x 1.4 cm axial image 232 series 5 and in the right lower lobe measuring 5 x 10 mm axial image 345 series 5. No endobronchial or endotracheal lesion is seen.. MEDIASTINUM: Left subclavian dual chamber pacemaker. Normal heart size. Mild coronary artery calcification. No pericardial effusion. Small mediastinal lymph nodes. No enlarged hilar or mediastinal lymph nodes are PLEURA: There is no pleural effusion. No pleural mass or thickening. AXILLA: No lymphadenopathy. UPPER ABDOMEN: Unremarkable OSSEOUS STRUCTURES: There are mild degenerative changes of the spine. CT/CT lung screening IMPRESSION: Emphysema. Diffuse airways disease with bronchial wall thickening, increased bronchial attenuation peribronchial nodules there are also several heterogeneous cystic and reticular area seen in the lungs. ASSESSMENT: Lung-RADS category 3: Probably Benign RECOMMENDATION: Six-month low-dose chest CT follow-up recommended.
== END 2022-01-16 15:03 | disposition home or self-care (01) ==
LOC: HO.CT 15:02
PROVIDERS: PCP Internal Medicine; Visit Provider Physician Assistant Medical
DX: Z12.2 Encounter for screening for malignant neoplasm of respiratory organs (principal); F17.210 Nicotine dependence, cigarettes, uncomplicated
CPT/HCPCS: 71271; G0296

== ENCOUNTER → 2022-01-30 10:32 | Outpatient (BNVA) | payer MEDICARE, SELFPAY | PROVIDERS: PCP Internal Medicine; Visit Provider Surgery | DX: R91.8 Other nonspecific abnormal finding of lung field (principal); R06.02 Shortness of breath; R05.3 Chronic cough; R53.83 Other fatigue; F17.210 Nicotine dependence, cigarettes, uncomplicated; Z95.0 Presence of cardiac pacemaker; Z98.890 Other specified postprocedural states | CPT/HCPCS: 99202 ==

== ENCOUNTER → 2022-03-09 13:36 | Outpatient (BNVA) | payer MEDICARE, SELFPAY | PROVIDERS: PCP Internal Medicine; Referring Provider Internal Medicine; Visit Provider Internal Medicine | DX: I48.0 Paroxysmal atrial fibrillation (principal); I44.2 Atrioventricular block, complete; I50.22 Chronic systolic (congestive) heart failure; J44.9 Chronic obstructive pulmonary disease, unspecified | CPT/HCPCS: 99212 ==

== ENCOUNTER 2022-05-14 08:12 | Outpatient (REF) | payer MEDICARE, SELFPAY ==
--- NOTE | ~2022-05-14 | CT_ITS ---
EXAMINATION: CT CHEST SCREENING CLINICAL INFORMATION: 50 pack-year smoking history. Current smoker. COMPARISON: Previous chest CT January 2022 TECHNIQUE: Multidetector volumetric CT imaging of the chest is performed without contrast using low dose technique. Additional 2D coronal and sagittal reformatted images and axial 3D maximum intensity projection (MIP) images are generated on the CT workstation. This CT examination was performed using dose optimization techniques as appropriate, variously including the following: *Automated exposure control *Adjustment of mA and/or kV according to patient size (this includes techniques or standardized protocols for targeted exams where dose is matched to indication/reason for exam; i.e. extremities or head) *Use of iterative reconstruction technique DLP: 173 mGy-cm FINDINGS: LUNGS: There is slight elevation of the right hemidiaphragm. There is evidence of paraseptal and centrilobular emphysema. There is still evidence of scattered airways disease with bronchial wall thickening and increased peribronchial attenuation, right lung greater than left. There are some surrounding peribronchial nodular opacities, increased in the right lower lobe measuring 5 mm for example axial image 331 series 4. There is increasing subsegmental atelectasis or small infiltrate in the right middle and right lower lobes compared to January 2022. There are heterogeneous mixed cystic and reticular densities in the lungs, largest in the right upper lobe measuring 1 x 1.4 cm axial image 134 series 4. And in the left upper lobe measuring 7 mm axial image 183 series 4 and in the right lower lobe measuring 1 cm axial image 310 series 4. These do not appear appreciably changed. No central endobronchial or endotracheal lesion.. MEDIASTINUM: Left subclavian dual chamber pacemaker. Normal heart size. No pericardial effusion. Upper normal-size thoracic aorta. Small mediastinal lymph nodes. CORONARY ARTERY CALCIFICATION: None visualized on this study. PLEURA: There is no pleural effusion. No pleural mass or thickening. AXILLA: No lymphadenopathy. UPPER ABDOMEN: Unremarkable OSSEOUS STRUCTURES: Degenerative changes of the spine. There is slight loss of height of the right superior endplate of the vertebral body CT/CT lung screen follow up that is stable. IMPRESSION: Emphysema. Worsening airways disease with bronchial wall thickening, bronchial soft tissue opacification and increased peribronchial attenuation and nodules right lung greater than left. Increasing atelectasis or small infiltrates in the right middle and right lower lobes. ASSESSMENT: Lung-RADS category 2: Benign RECOMMENDATION: Annual low-dose chest CT follow-up recommended.
== END 2022-05-14 08:13 | disposition home or self-care (01) ==
LOC: HO.CT 08:12
PROVIDERS: PCP Internal Medicine; Visit Provider Surgery
DX: R91.8 Other nonspecific abnormal finding of lung field (principal)
CPT/HCPCS: 71250

== ENCOUNTER → 2022-05-15 08:47 | Outpatient (BNVA) | payer MEDICARE, SELFPAY | PROVIDERS: PCP Internal Medicine; Visit Provider Internal Medicine | DX: R91.8 Other nonspecific abnormal finding of lung field (principal); I48.0 Paroxysmal atrial fibrillation; Z79.01 Long term (current) use of anticoagulants; Z51.81 Encounter for therapeutic drug level monitoring | CPT/HCPCS: 85610; 99202; 99212 ==

== ENCOUNTER → 2022-05-18 13:03 | Outpatient (BNVA) | payer MEDICARE, SELFPAY | PROVIDERS: PCP Internal Medicine; Visit Provider Internal Medicine | DX: I48.0 Paroxysmal atrial fibrillation (principal); Z79.01 Long term (current) use of anticoagulants; Z51.81 Encounter for therapeutic drug level monitoring | CPT/HCPCS: 85610; 99211 ==

== ENCOUNTER → 2022-05-21 13:40 | Outpatient (BNVA) | payer MEDICARE, SELFPAY | PROVIDERS: PCP Internal Medicine; Visit Provider Internal Medicine | DX: I48.0 Paroxysmal atrial fibrillation (principal); Z79.01 Long term (current) use of anticoagulants; Z51.81 Encounter for therapeutic drug level monitoring | CPT/HCPCS: 85610; 99211 ==

== ENCOUNTER → 2022-05-28 14:00 | Outpatient (BNVA) | payer MEDICARE, SELFPAY | PROVIDERS: PCP Internal Medicine; Visit Provider Internal Medicine | DX: I48.0 Paroxysmal atrial fibrillation (principal); Z79.01 Long term (current) use of anticoagulants; Z51.81 Encounter for therapeutic drug level monitoring | CPT/HCPCS: 85610; 99211 ==

== ENCOUNTER → 2022-06-04 12:57 | Outpatient (BNVA) | payer MEDICARE, SELFPAY | PROVIDERS: PCP Internal Medicine; Visit Provider Internal Medicine | DX: I48.0 Paroxysmal atrial fibrillation (principal); Z79.01 Long term (current) use of anticoagulants; Z51.81 Encounter for therapeutic drug level monitoring | CPT/HCPCS: 85610; 99211 ==

== ENCOUNTER → 2022-06-18 13:02 | Outpatient (BNVA) | payer MEDICARE, SELFPAY | PROVIDERS: PCP Internal Medicine; Visit Provider Internal Medicine | DX: I48.0 Paroxysmal atrial fibrillation (principal); Z79.01 Long term (current) use of anticoagulants; Z51.81 Encounter for therapeutic drug level monitoring | CPT/HCPCS: 85610; 99211 ==

== ENCOUNTER → 2022-07-02 13:09 | Outpatient (BNVA) | payer MEDICARE, SELFPAY | PROVIDERS: PCP Internal Medicine; Visit Provider Internal Medicine | DX: I48.0 Paroxysmal atrial fibrillation (principal); Z79.01 Long term (current) use of anticoagulants; Z51.81 Encounter for therapeutic drug level monitoring | CPT/HCPCS: 85610; 99211 ==

== ENCOUNTER → 2022-07-06 13:19 | Outpatient (BNVA) | payer MEDICARE, SELFPAY | PROVIDERS: PCP Internal Medicine; Referring Provider Internal Medicine; Visit Provider Internal Medicine | DX: I48.0 Paroxysmal atrial fibrillation (principal); I44.2 Atrioventricular block, complete; I50.22 Chronic systolic (congestive) heart failure; J44.9 Chronic obstructive pulmonary disease, unspecified; F17.200 Nicotine dependence, unspecified, uncomplicated; Z71.6 Tobacco abuse counseling | CPT/HCPCS: 93005; 99212 ==

== ENCOUNTER → 2022-07-07 13:05 | Outpatient (BNVA) | payer MEDICARE, SELFPAY | PROVIDERS: PCP Internal Medicine; Visit Provider Internal Medicine | DX: J44.9 Chronic obstructive pulmonary disease, unspecified (principal); R09.02 Hypoxemia; R91.8 Other nonspecific abnormal finding of lung field; Z87.891 Personal history of nicotine dependence | CPT/HCPCS: 99212 ==

== ENCOUNTER → 2022-07-16 13:04 | Outpatient (BNVA) | payer MEDICARE, SELFPAY | PROVIDERS: PCP Internal Medicine; Visit Provider Internal Medicine | DX: I48.0 Paroxysmal atrial fibrillation (principal); Z79.01 Long term (current) use of anticoagulants; Z51.81 Encounter for therapeutic drug level monitoring | CPT/HCPCS: 85610; 99211 ==

== ENCOUNTER 2022-08-13 12:16 | Outpatient (REF) | payer MEDICARE, SELFPAY ==
[2022-08-13 12:26] LABS: MANUAL DIFF FLAG NO
[2022-08-13 12:54] LABS: Basophils Absolute Auto 0.2 X10*3/uL (0.0-0.2); Basophils Percent Auto 1.2 % (0-2); Eosinophils Absolute Auto 0.6 X10*3/uL (0.0-0.4); Eosinophils Percent Auto 4.3 % (0-4); Hematocrit 45.4 % (42.0-52.0); Imm Gran Abs Auto 0.05 X10*3/uL (0.00-0.03); Imm Gran Pct Auto 0.4 % (0.0-0.4); Lymphocytes Percent Auto 15.9 % (20-40); Mean Corpuscular HGB Conc 30.8 g/dl (31.0-36.0); Mean Corpuscular Hemoglobin 28.5 pg (27.0-33.0); Mean Corpuscular Volume 92.3 fL (80.0-98.0); Mean Platelet Volume 10.3 fL (9.4-12.4); Monocytes Absolute Auto 0.9 X10*3/uL (0.1-1.2); Monocytes Percent Auto 6.6 % (2-11); Neutrophils Absolute Auto 9.2 x10*3/uL (2.0-8.3); Neutrophils Percent Auto 71.6 % (45-73); Platelet Count 296 X10*3/uL (160-400); Red Blood Count 4.92 X10*6/uL (4.60-5.80); Red Cell Distribution Width 14.7 % (11.0-16.0); White Blood Count 12.9 X10*3/uL (4.8-10.8)
[2022-08-13 14:04] LABS: Estimated Average Glucose 105 mg/dL; Hemoglobin A1c % 5.3 %
[2022-08-13 14:17] LABS: Thyroid Stimulating Hormone 0.96 uIU/mL (0.32-4.0)
[2022-08-13 14:43] LABS: Alanine Aminotransferase 12 U/L (0-40); Albumin Level 4.1 g/dL (3.5-5.0); Alkaline Phosphatase 86 U/L (39-117); Anion Gap 16 (12-20); Aspartate Amino Transferase 15 U/L (5-37); Bilirubin Total 0.4 mg/dL (0.0-1.0); Blood Urea Nitrogen 12 mg/dL (9-16); Calcium 9.6 mg/dL (8.4-10.2); Carbon Dioxide 33 mmol/L (22-29); Chloride 96 mmol/L (96-108); Cholesterol 222 mg/dL; Estimated Glomerular Filt Rate > 60; Glucose Fasting 96 mg/dL (60-99); HDL Cholesterol 43 mg/dL; LDL Cholesterol Calculated 138 mg/dl; Potassium 4.8 mmol/L (3.3-5.1); Sodium 140 mmol/L (135-145); Triglycerides 206 mg/dL
== END 2022-08-13 12:17 | disposition home or self-care (01) ==
LOC: HO.LAB 12:16
PROVIDERS: PCP Internal Medicine; Visit Provider Internal Medicine
DX: Z13.0 Encounter for screening for diseases of the blood and blood-forming organs and certain disorders involving the immune mechanism (principal); I48.0 Paroxysmal atrial fibrillation; E11.9 Type 2 diabetes mellitus without complications; I10 Essential (primary) hypertension; E03.9 Hypothyroidism, unspecified; E78.5 Hyperlipidemia, unspecified; Z51.81 Encounter for therapeutic drug level monitoring; Z79.01 Long term (current) use of anticoagulants
CPT/HCPCS: 36415; 80053; 80061; 83036; 84443; 85025; 85610; 99211

== ENCOUNTER → 2022-09-10 13:04 | Outpatient (BNVA) | payer MEDICARE, SELFPAY | PROVIDERS: PCP Internal Medicine; Visit Provider Internal Medicine | DX: I48.0 Paroxysmal atrial fibrillation (principal); Z79.01 Long term (current) use of anticoagulants; Z51.81 Encounter for therapeutic drug level monitoring | CPT/HCPCS: 85610; 99211 ==

== ENCOUNTER → 2022-10-01 13:02 | Outpatient (BNVA) | payer MEDICARE, SELFPAY | PROVIDERS: PCP Internal Medicine; Visit Provider Internal Medicine | DX: I48.0 Paroxysmal atrial fibrillation (principal); Z79.01 Long term (current) use of anticoagulants; Z51.81 Encounter for therapeutic drug level monitoring | CPT/HCPCS: 85610; 99211 ==

== ENCOUNTER → 2022-10-15 12:59 | Outpatient (BNVA) | payer MEDICARE, SELFPAY | PROVIDERS: PCP Internal Medicine; Visit Provider Internal Medicine | DX: I48.0 Paroxysmal atrial fibrillation (principal); Z79.01 Long term (current) use of anticoagulants; Z51.81 Encounter for therapeutic drug level monitoring | CPT/HCPCS: 85610; 99211 ==

== ENCOUNTER → 2022-11-05 13:01 | Outpatient (BNVA) | payer MEDICARE, SELFPAY | PROVIDERS: PCP Internal Medicine; Visit Provider Internal Medicine | DX: I48.0 Paroxysmal atrial fibrillation (principal); Z79.01 Long term (current) use of anticoagulants; Z51.81 Encounter for therapeutic drug level monitoring | CPT/HCPCS: 85610; 99211 ==

== ENCOUNTER → 2022-12-03 13:00 | Outpatient (BNVA) | payer MEDICARE, SELFPAY | PROVIDERS: PCP Internal Medicine; Visit Provider Internal Medicine | DX: I48.0 Paroxysmal atrial fibrillation (principal); Z79.01 Long term (current) use of anticoagulants; Z51.81 Encounter for therapeutic drug level monitoring | CPT/HCPCS: 85610; 99211 ==

== ENCOUNTER → 2022-12-07 12:57 | Outpatient (REF) | payer MEDICARE, SELFPAY ==
--- NOTE | ~2022-12-07 | CT_ITS ---
EXAMINATION: CT CHEST SCREENING CLINICAL INFORMATION: Abnormal finding of the lung kaplan COMPARISON: Interval priors, most recently 05/14/2022. TECHNIQUE: Multidetector volumetric CT imaging of the chest is performed without contrast using low dose technique. Additional 2D coronal and sagittal reformatted images and axial 3D maximum intensity projection (MIP) images are generated on the CT workstation. This CT examination was performed using dose optimization techniques as appropriate, variously including the following: *Automated exposure control *Adjustment of mA and/or kV according to patient size (this includes techniques or standardized protocols for targeted exams where dose is matched to indication/reason for exam; i.e. extremities or head) *Use of iterative reconstruction technique DLP: 63 mGy-cm FINDINGS: LUNGS: The central airways are patent. Moderate centrilobular and paraseptal emphysema. Mild bronchial wall thickening. Peripheral scarring at the right base. Associated mild nodularity is unchanged as seen on series 5 image 316 laterally. Increased prominence of groundglass nodularity posteriorly in the right lower lobe measuring 1 cm on series 5 image 345. This measured 0.4 cm on the prior. Unchanged heterogeneous nodular density in the right upper lobe measuring 1.2 x 0.5 cm on series 5 image 121. This has associated cystic space superiorly. Improved aeration of the ill-defined nodular density in the left upper lobe seen on series 5 image 175 now has a more cystic appearance, likely associated with the bronchus. Ill-defined cystic and reticular area in the right lower lobe on series 5 image 303 measuring 1 cm is similar to prior. Additional tree-in-bud nodular opacities at the right base are similar to prior. MEDIASTINUM: Normal heart size. No pericardial effusion. No mediastinal lymphadenopathy. Left chest wall pacer with leads at the right atrium and right ventricle. CORONARY ARTERY CALCIFICATION: Present, mild. PLEURA: There is no pleural effusion. No pleural mass or thickening. No pneumothorax. AXILLA: No lymphadenopathy. UPPER ABDOMEN: Unremarkable OSSEOUS STRUCTURES: No acute or suspicious osseous abnormality. CT/CT lung screen follow up IMPRESSION: Moderate emphysema. Multiple areas of nodularity are again noted. There is increased prominence of groundglass nodularity posteriorly in the right lower lobe measuring 1 cm. Remaining nodules are other unchanged or improving. ASSESSMENT: Lung-RADS category 2: Benign RECOMMENDATION: Routine annual low-dose CT screening in 12 months.
--- NOTE | 2022-12-07 13:06 | CA_ITS ---
Transthoracic Echocardiogram Patient (Last, First, Middle): Stan Sherman, Gender: Male Date of : 1950 Age: 72 Procedure Date: 12/07/2022 Procedure Type: Transthoracic Echocardiogram Location: OP Height: 172.72 cm Weight: 88.45 kg BSA: 2.02 m2 Heart Rate: bpm BP: 132 / 80 mmHg Highway Inspector: Referring MD: Bruno Shukla MD Symptoms: I50.22 - Chronic systolic (congestive) heart failure Study Quality: Fair ECG Rhythm: Ventriculary paced rhythm Conclusions: - The left ventricular systolic function is moderately decreased. The calculated ejection fraction is 32% by biplane method. - No obvious valvular pathology seen on this study. Findings Left Ventricle Normal left ventricular cavity size. There is mildly increased left ventricular wall thickness. The left ventricular systolic function is moderately decreased. The calculated ejection fraction is 32% by biplane method. There is moderate global hypokinesis. There is paradoxical septal motion consistent with a right ventricular pacemaker. Evidence suggests grade I (mild) diastolic dysfunction. Right Ventricle Normal right ventricular cavity size and systolic function. There is a pacemaker wire seen in the right ventricle. Atria Both atria are normal in size. Aortic Valve The aortic valve was not well visualized. There is no aortic valve stenosis. There is no aortic valve regurgitation. Mitral Valve The mitral valve appears normal. There is no mitral valve regurgitation. There is no mitral valve stenosis. Pulmonic Valve The pulmonic valve is likely normal. Tricuspid Valve There is trace tricuspid valve regurgitation. There is no evidence of pulmonary hypertension. Great Vessels The aorta was not well visualized. Venous The inferior vena cava is normal in size and collapses greater than 50% with inspiration. Pericardium/Pleural There is no evidence of pericardial effusion. Prior Study Comparison Changes noted compared to prior study dated: 07/02/2020. LVEF lower than prior study. Recommendations, Care & Conclusions No obvious valvular pathology seen on this study. Measurements 2D Linear Measurements IVSd: 1.31 0.6-0.9/0.6-1.0 cm LVIDd: 4.40 3.9-5.3/4.2-5.9 cm LVIDd Index: 2.18 2.4-3.2/2.2-3.1 cm/m2 LVIDs: 3.46 2.0-3.6 cm LVPWd: 1.25 0.7-1.1 cm Ao Root: 3.90 2.1-3.5 cm LA Diam: 2.80 2.7-3.8/3.0-4.0 cm LAIDs Index: 1.39 1.5-2.3 cm/m2 LV Mass: 262.05 67-162/88-224 g LV Mass Index: 129.73 43-95/49-115 g/m2 LVOT Diam: 2.40 3.0+(-)1.3 cm 2D Systolic Function EF 4C: 31.40 >55% EF 2C: 31.30 >55% EF BiP: 32.30 >55% Mitral Valve MV Pk E: 0.43 MV PK A: 0.63 MV Decel Time: 127.00 E/A: 0.70 E'Lateral: 6.42 E'Medial: 5.98 E/E' Med: 7.20 E/E' Lat: 6.70 PHT: 37.00 MVA PHT: 5.95 Decel [place]: 3.41 Aortic Valve AoV Pk Gab: 1.04 AoV Mn Gab: 0.65 AoV VTI: 0.20 AoV Pk Grad: 4.00 Aov Mn Grad: 2.00 FRITZ Cont.VTI: 2.88 LVOT LVOT Pk Gab: 0.74 LVOT Mn Gab: 0.48 LVOT VTI: 0.13 LVOT Pk Grad: 2.00 LVOT Mn Grad: 1.00 LVOT Diam: 2.40 LVOT Area: 4.52 Diastolic Function MV Pk E: 0.43 MV Pk A: 0.63 E/A: 0.70 E'Medial: 5.98 E/E' Med: 7.20 E' Laterial: 6.42 E/E' Lat: 6.70 Right Ventricle TAPSE (mm): 20.00 TVS' Gab: 10.00 Tricuspid Valve TR Pk Gab: 1.75 TR Pk Grad: 12.00 RA Press: 3.00 RVSP: 15.00 Great Vessels Aorta Ao Root-2D: 3.90 2.0-3.7 cm Pulmonary Valve PV Pk Gab: 0.81 Peak PV Grad: 3.00 Updated in Other Vendor System with Status of Final Bruno Shukla MD electronically signed on 12/08/2022 1:47:46 PM with status of Final
== END ==
LOC: HO.CARD 12:57
PROVIDERS: PCP Internal Medicine; Visit Provider Internal Medicine
DX: I50.22 Chronic systolic (congestive) heart failure (principal); R91.8 Other nonspecific abnormal finding of lung field
CPT/HCPCS: 71250; 93306

== ENCOUNTER 2022-12-07 14:01 | Outpatient (REF) | payer MEDICARE, SELFPAY | END 2022-12-07 14:02 | disposition home or self-care (01) | LOC: HO.CT 14:01 | PROVIDERS: PCP Internal Medicine; Visit Provider Surgery | DX: Z13.89 Encounter for screening for other disorder (principal) ==

== ENCOUNTER → 2022-12-18 10:12 | Outpatient (BNVA) | payer MEDICARE, SELFPAY | PROVIDERS: Visit Provider Surgery | DX: R91.8 Other nonspecific abnormal finding of lung field (principal); Z87.891 Personal history of nicotine dependence | CPT/HCPCS: 99212 ==

== ENCOUNTER 2023-01-04 12:12 | Outpatient (AMB) | payer MEDICARE, SELFPAY ==
[2023-01-04 12:41] VITALS: BP 106/70; PULSE 95; BMI 29.7
--- NOTE | 2023-01-04 12:41 | MHC.OFFVIS ---
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 Required: No Accompanied by: Self / Same As Patient Allergies No Known Allergies [No Known Allergies*] Allergy (Verified 01/04/23 12:42) Medication List - Last Reconciled 01/04/23 by Bruno Shukla MD albuterol sulfate 90 mcg/actuation (ProAir HFA) 2 puffs inhalation Q4-6H PRN 90 days albuterol sulfate 2.5 mg (3 mL) inhalation Q4-6H PRN ipratropium-albuterol 0.5 mg-3 mg(2.5 mg base)/3 mL 3 mL inhalation QID 90 days lisinopril 2.5 mg (1/2 x 5 mg) PO DAILY metoprolol succinate ER 100 mg (2 x 50 mg) PO DAILY multivitamin (Daily Multi-Vitamin tablet) 1 tab PO DAILY nebulizers To use every 4 hours Oxygen Home Use As directed spironolactone 12.5 mg (1/2 x 25 mg) PO DAILY Symbicort 160-4.5 mcg/actuation (budesonide-formoterol) 2 puffs PO BID NS torsemide 60 mg PO ONCE PRN warfarin 5 mg See Protocol PO DAILY HPI HPI Comments History of Present Illness Details Stan returns for follow-up regarding pacemaker and other cardiac issues. Former patient of [facility], but switched to our care. To recall, he has a history of atrial flutter and fibrillation. He underwent ablation in 2019 for the same. In early 2020, admitted for complete heart block. Then underwent permanent pacemaker placement. He has chronic shortness of breath that is just about the same as before. He is also on supplemental oxygen. No clear-cut angina. However, does not do much. FORMERLY [facility] Medical History Blind right eye Chronic systolic (congestive) heart failure COPD (chronic obstructive pulmonary disease) Exercise hypoxemia History of diverticulitis Hx of Stewart's palsy Hypertension Iron (Fe) deficiency anemia Paroxysmal atrial fibrillation Personal history of nicotine dependence Surgical History History of cardiac radiofrequency ablation History of colonoscopy History of permanent cardiac pacemaker placement (~06/2020) Family History Father No problems noted. Mother No problems noted. Brother Esophageal cancer Social History Household Members: Children [facility] Do you presently have visiting nurse or other home services: Yes ([facility]) Alcohol intake: current Alcohol intake frequency: other Patient Tobacco Use Status: Current everyday Tobacco user Tobacco use type: Cigarette Cigarette Packs Per Day: 0.5 Cigarettes Per Day: 1 Years Smoked: (onset 18yo, 1-1.5ppd x 53yrs, 65pyh - now 1cig/day) e-Cigarette/Vaping Use: Never Used Second Hand Smoke Exposure: Yes Advance Directives Date on File: 07/01/20 service: No Current occupational status: retired Current occupation: RETIRED Current occupational exposures/hazards: No Cognitive needs: No Hearing needs: No Vision needs: No Review of Systems Const Denies weakness ENT Denies dizziness Card Denies chest pain, Denies chest pain with activity, Denies syncope, Denies rapid heart rate, Denies pedal edema, Denies edema, Denies leg edema, Denies lightheadedness, Denies palpitations, Denies dyspnea, Denies dyspnea on exertion and Denies orthopnea Resp Denies cough, Denies dyspnea and Denies dyspnea on exertion GI Denies hematochezia and Denies change in stool character Musc Denies abnormal gait, Denies muscle cramps, Denies muscle weakness, Denies numbness, Denies radiating pain into limb and Denies tingling Neuro Denies abnormal gait, Denies dizziness, Denies syncope, Denies numbness, Denies tingling and Denies weakness Endo Denies palpitations Physical Exam Vital Signs: Last Vital Signs Pulse 95 01/04/23 12:41 BP 106/70 01/04/23 12:41 BMI result Body Mass Index 29.7 Const General: comfortable and no acute distress Orientation/consciousness: patient oriented x3 HEENT Other: Unremarkable Head: Yes normal to inspection Neck Neck: Yes normal visual inspection Chest Chest palpation & inspection: normal inspection of the chest Resp Auscultation: diminished lung sounds Cardio Palpation: normal PMI Heart sounds: S1 normal heart sound present, S2 normal heart sound present, no gallops, no murmurs and no rubs GI Palpation (GI): Soft to palpation Back/Spine/Pelvis Other: unremarkable Skin General skin exam: no rashes or lesions noted Neuro General: patient oriented x3 Extrem General: Yes normal to inspection Psych Mental Status: mental status grossly normal Office Procedures Cardiac Device Check Cardiac Device Check Details: Pacemaker interrogated today. Dual-chamber device, programmed DDD mode. Battery status 7 years. Pacing in the atrium 2%. Pacing in the ventricles 99%. Very rare atrial fibrillation episodes. [place] is listed as 0%. Occasional NSVT but again very brief. Appropriate adjustments made. Overall, normal device function. [id number] Cardiac Device Check, pacemaker dual lead Procedure code (CPT) selection complete Assessment & Plan Assessment & Plan (1) Paroxysmal atrial fibrillation: Code(s): I48.0 - Paroxysmal atrial fibrillation Plan: Status post ablation of atrial fibrillation and flutter in 2020. He underwent pulmonary vein isolation as well as cavo- tricuspid isthmus ablation. No recent issues. Continue beta blockers, warfarin. (2) Complete heart block: Code(s): I44.2 - Atrioventricular block, complete Plan: Status post pacemaker implantation. (3) Chronic systolic (congestive) heart failure: Code(s): I50.22 - Chronic systolic (congestive) heart failure Plan: Per [facility] documentation, LVEF was as low as 25-30%. In earlier study, LVEF 45-50%. In the most recent study, again reduced at 32%. He underwent resting only study at [facility] and had significant wheezing (?after Lexiscan) and hence stress part was not done at all. As we do not have any clear reasons for cardiomyopathy, we can do a diagnostic catheterization. Continue Toprol-XL, lisinopril, diuretics. 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 (4) COPD (chronic obstructive pulmonary disease): Comment: PATIENT HAS ADVANCED CHRONIC OBSTRUCTIVE PULMONARY DISEASE. CLINICALLY HOLDING STABLE ON HIS CURRENT MEDICAL REGIMEN FOLLOWS: SYMBICORT 160-4.52 PUFFS B.I.D. IPRATROPIUM/ALBUTEROL SOLUTION IN UPDRAFTS Q.I.D. PROAIR 2 PUFFS Q 4-6 HOURS P.R.N. WHEN OUTDOORS Code(s): J44.9 - Chronic obstructive pulmonary disease, unspecified Qualifiers: COPD type: unspecified COPD Qualified Code(s): J44.9 - Chronic obstructive pulmonary disease, unspecified Plan: Suspected to have very severe degree of COPD. Also on supplemental oxygen. Orders: Orders Basic Metabolic Panel Today I50.22 - Chronic systolic (congestive) heart failure Prothrombin Time INR Today I25.10 - Atherosclerotic heart disease of [place] coronary artery without angina pectoris, I50.22 - Chronic systolic (congestive) heart failure Complete Blood Count no Diff Today I50.22 - Chronic systolic (congestive) heart failure Cardiac Cath LT Diagnostic Today I25.10 - Atherosclerotic heart disease of [place] coronary artery without angina pectoris, I50.22 - Chronic systolic (congestive) heart failure B Type Natriuretic Peptide Today I50.22 - Chronic systolic (congestive) heart failure Coding Level of Care Code Est Pt Level 5 (52412) Diagnoses Paroxysmal atrial fibrillation I48.0 Complete heart block I44.2 Chronic systolic (congestive) heart failure I50.22 COPD (chronic obstructive pulmonary disease) J44.9 COPD type: unspecified COPD CPT Codes Cardiac Device Check - Cardiac Device 2: [id number]-BP Cardiac Device Check, pacemaker dual lead ([id number])
== END 2023-01-04 13:54 | disposition home or self-care (01) ==
PROVIDERS: Visit Provider Internal Medicine
DX: I48.0 Paroxysmal atrial fibrillation (principal); I44.2 Atrioventricular block, complete; I50.22 Chronic systolic (congestive) heart failure; J44.9 Chronic obstructive pulmonary disease, unspecified
CPT/HCPCS: 93280; 99215

== ENCOUNTER → 2023-01-04 12:12 | Outpatient (BNVA) | payer MEDICARE, SELFPAY | PROVIDERS: Visit Provider Internal Medicine | DX: Z45.018 Encounter for adjustment and management of other part of cardiac pacemaker (principal); I48.0 Paroxysmal atrial fibrillation; I44.2 Atrioventricular block, complete; I50.22 Chronic systolic (congestive) heart failure; J44.9 Chronic obstructive pulmonary disease, unspecified | CPT/HCPCS: 93280; 99212 ==

== ENCOUNTER 2023-01-05 13:02 | Outpatient (AMB) | payer MEDICARE, SELFPAY ==
--- NOTE | 2023-01-05 13:11 | MHC.OFFVISCO ---
Intake Intake Visit Reasons: Anticoagulation Allergies No Known Allergies [No Known Allergies*] Allergy (Verified 01/05/23 13:30) Medication List - Last Reconciled 01/05/23 by Jada Bradshaw RN albuterol sulfate 90 mcg/actuation (ProAir HFA) 2 puffs inhalation Q4-6H PRN 90 days albuterol sulfate 2.5 mg (3 mL) inhalation Q4-6H PRN ipratropium-albuterol 0.5 mg-3 mg(2.5 mg base)/3 mL 3 mL inhalation QID 90 days lisinopril 2.5 mg (1/2 x 5 mg) PO DAILY metoprolol succinate ER 100 mg (2 x 50 mg) PO DAILY multivitamin (Daily Multi-Vitamin tablet) 1 tab PO DAILY nebulizers To use every 4 hours Oxygen Home Use As directed spironolactone 12.5 mg (1/2 x 25 mg) PO DAILY Symbicort 160-4.5 mcg/actuation (budesonide-formoterol) 2 puffs PO BID NS torsemide 60 mg PO ONCE PRN warfarin 5 mg See Protocol PO DAILY Nursing Note INR 1.4-? out of therapeutic range- missed a dose last week Medications and supplements reviewed Patient status: pt c.o fatigue and lack of energy, saw cardiology and had an echo and will need a cardiac cath on 02/04/23- hold of warfarin 4 days Medications or supplements: no changes Diet: appetite same Denies any signs and symptoms of bleeding or clotting or unusual bruising Bleeding, bruising, clotting discussed- aware at risk for clotting Nutritional guidance given: no greens for 2 days, eat reds to raise inr Dose: 7.5mg today and 5mg tomm then cont reg 2.5mg x 3, 5mg x 4 F/U INR Date : wednesday01/11/23? Patient verbalizing understanding of instructions given. pcp dr davidson's office called with low inr/dosing and f/u appt- spoke to darius, aware of missed a dose last week and aware of cardiac cath composed not to dr davidson Anti-Coag Initial Assessment Social Hx Patient Tobacco Use Status: Current everyday Tobacco user Tobacco use type: Cigarette Smoking packs per day: 0.5 alcohol intake: current Alcohol intake frequency: other Cardiovascular Hx: HTN, CHF, Arrhythmias and Other Lung Disease HX: COPD and Other Blood Disorder Hx: Anemia GI Hx: Diverticulosis Neurological Hx: Other Cancer HX: No Psych. Illness/Depression: No Coding Level of Care Code Est Patient Level 1 Diagnoses Current use of anticoagulant therapy Z79.01 Assessment & Plan Assessment & Plan (1) Current use of anticoagulant therapy: Code(s): Z79.01 - skilled nursing (current) use of anticoagulants Category: Medical
[2023-01-05 13:12] LABS: ~PT, ~INR - Anti Coag Clinic 1.4 (0.9-1.1)
== END 2023-01-05 13:29 | disposition home or self-care (01) ==
LOC: HO.ACS 13:02
PROVIDERS: PCP Internal Medicine; Visit Provider Internal Medicine
DX: Z79.01 Long term (current) use of anticoagulants (principal)

== ENCOUNTER → 2023-01-05 13:02 | Outpatient (BNVA) | payer MEDICARE, SELFPAY | PROVIDERS: PCP Internal Medicine; Visit Provider Internal Medicine | DX: I48.0 Paroxysmal atrial fibrillation (principal); J44.9 Chronic obstructive pulmonary disease, unspecified; R91.8 Other nonspecific abnormal finding of lung field; R09.02 Hypoxemia; Z87.891 Personal history of nicotine dependence; Z79.01 Long term (current) use of anticoagulants; Z51.81 Encounter for therapeutic drug level monitoring | CPT/HCPCS: 85610; 94010; 99211; 99212 ==

== ENCOUNTER 2023-01-05 13:23 | Outpatient (AMB) | payer MEDICARE, SELFPAY ==
--- NOTE | 2023-01-05 13:24 | A.OFFVIS_ITS ---
Intake Vital Signs 01/05/23 13:25 Height 5 ft 8 in Weight 196 lb 3.382 oz BMI 29.8 BP 114/62 Blood Pressure Location Lt brachial Position Sitting Pulse 94 Pulse Source Pulse Oximeter Pulse Oximetry (%) 93 Oxygen Delivery Method Nasal Cannula Oxygen Flow Rate 3 Intake Visit Reasons: COPD follow-up Intake Note: Pt presents today for a f/u. He reports having an EKG and brought papers he would like to discuss but overall everything is going well. Also wants a refill of his albuterol inhaler. Dialysis Social Worker Required: No Allergies No Known Allergies [No Known Allergies*] Allergy (Verified 01/05/23 13:50) Medication List - Last Reconciled 01/05/23 by Rey August MD albuterol sulfate 90 mcg/actuation (ProAir HFA) 2 puffs inhalation Q4-6H PRN 90 days albuterol sulfate 2.5 mg (3 mL) inhalation Q4-6H PRN ipratropium-albuterol 0.5 mg-3 mg(2.5 mg base)/3 mL 3 mL inhalation QID 90 days lisinopril 2.5 mg (1/2 x 5 mg) PO DAILY metoprolol succinate ER 100 mg (2 x 50 mg) PO DAILY multivitamin (Daily Multi-Vitamin tablet) 1 tab PO DAILY nebulizers To use every 4 hours Oxygen Home Use As directed spironolactone 12.5 mg (1/2 x 25 mg) PO DAILY Symbicort 160-4.5 mcg/actuation (budesonide-formoterol) 2 puffs PO BID NS torsemide 60 mg PO ONCE PRN warfarin 5 mg See Protocol PO DAILY Do you need a note to return to daycare/school/sports/work: No HPI COPD follow-up HPI Details THIS 72 YEARS OLD GENTLEMAN IS KNOWN TO HAVE ADVANCED CHRONIC OBSTRUCTIVE PULMONARY DISEASE. HE IS ON OXYGEN 2 L/MINUTE 24 HOURS A DAY. HE GETS SHORT OF BREATH ON MINIMAL EXERTION. HAS MILD TO MODERATE INTERMITTENT COUGH. HE CONTINUES TO USE SYMBICORT 2 PUFFS B.I.D., IPRATROPIUM/ALBUTEROL SOLUTION BY UPDRAFT Q I.D., AND PROAIR 2 PUFFS Q 4-6 HOURS P.R.N.. LUCKILY HE HAS HAD NO ACUTE RESPIRATORY INFECTION. HE IS ALSO BEING FOLLOWED BY FOR PULMONARY NODULE RIGHT ESPECIALLY IN THE RIGHT LOWER LOBE, AND IS SCHEDULED TO HAVE CT SCAN IN 6 MONTHS. PATIENT HAS HAD CARDIAC WORKUP INCLUDING EKG AND ECHOCARDIOGRAM AND IS NOW SCHEDULED FOR CARDIAC CATHETERIZATION. [facility] Medical History Blind right eye Chronic systolic (congestive) heart failure COPD (chronic obstructive pulmonary disease) Exercise hypoxemia History of diverticulitis Hx of Stewart's palsy Hypertension Iron (Fe) deficiency anemia Paroxysmal atrial fibrillation Personal history of nicotine dependence Surgical History History of cardiac radiofrequency ablation History of colonoscopy History of permanent cardiac pacemaker placement (~06/2020) Family History Father No problems noted. Mother No problems noted. Brother Esophageal cancer Social History Household Members: Children Housing: [facility] Do you presently have visiting nurse or other home services: Yes ([facility]) Alcohol intake: current Alcohol intake frequency: other Patient Tobacco Use Status: Current everyday Tobacco user Tobacco use type: Cigarette Cigarette Packs Per Day: 0.5 Cigarettes Per Day: 1 Years Smoked: (onset 18yo, 1-1.5ppd x 53yrs, 65pyh - now 1cig/day) e-Cigarette/Vaping Use: Never Used Second Hand Smoke Exposure: Yes Advance Directives Date on File: 07/01/20 service: No Current occupational status: retired Current occupation: RETIRED Current occupational exposures/hazards: No Cognitive needs: No Hearing needs: No Vision needs: No Review of Systems Const All systems reviewed & are unremarkable except as noted in HPI and below Eyes Reports loss of vision (HE IS BLIND IN RIGHT EYE) ENT Reports no additional complaints Card Denies chest pain, Reports irregular heart rhythm (ATRIAL FIBRILLATION) and Denies leg edema Resp Reports as per HPI GI Reports no additional complaints Reports no additional complaints Musc Reports no additional complaints Skin/Breast Reports system reviewed and no additional complaints, except as documented Neuro Reports no additional complaints and Reports loss of vision (HE IS BLIND IN RIGHT EYE) Psych Reports no additional complaints Physical Exam Vital Signs: Last Vital Signs Pulse 94 01/05/23 13:25 BP 114/62 01/05/23 13:25 Pulse Ox 93 01/05/23 13:25 Oxygen Delivery Method Nasal Cannula 01/05/23 13:25 Oxygen Flow Rate 3 01/05/23 13:25 BMI result Body Mass Index 29.8 Const General: comfortable, no acute distress, alert and awake Orientation/consciousness: patient oriented x3 HEENT Head: Yes normal to inspection General nose exam: No nasal polyps present and No nasal discharge present Face and sinus: Yes sinuses nontender Mouth: oropharynx normal Throat: Yes posterior oropharynx normal Eyes General: appearance normal, both eyes and all related structures Visual Chapman: visual chapman abnormal by confrontation (Blind in right eye) Neck Neck: Yes normal visual inspection, Yes no lymphadenopathy, Yes trachea midline and Yes no JVD Thyroid: Thyroid normal Chest Chest palpation & inspection: normal inspection of the chest, normal palpation of entire chest wall and no tenderness Resp Other: Percussion note is hyper-resonant, breath sounds are very distant with prolonged expiratory phase. No wheezes or creps. are heard today . Cardio Palpation: normal PMI Rate: regular rate Rhythm: regular rhythm Heart sounds: no gallops and no murmurs GI Palpation (GI): Soft to palpation, nontender, No hepatosplenomegaly present and no masses Auscultation: normal bowel sounds Back/Spine/Pelvis Thoracic/Lumbar Spine: thoracic and lumbar spine normal to inspection Skin General skin exam: no rashes or lesions noted Neuro General: patient oriented x3 and no focal motor deficits Cranial nerves: Yes CN's II-XII intact bilaterally Extrem General: Yes normal to inspection, Yes no clubbing, cyanosis or edema and Yes no calf tenderness Psych Appearance: grossly normal and well kempt Speech and movement: Normal speech and movement present Office Procedures Spirometry Testing Spirometry Comments: Spirometry performed to the best of the patient's abilty, Dr. August has results [id number]- Spirometry Results Reviewed Results Reviewed: SPIROMETRY FVC FEV1 FEF 25-75 08/22/21 73% 21 % 7 % 01/05/23 20 % 15 % 16 % ( THE NUNBERS ARE VERY LOW, DUE TO VERY POOR EFFORTS AND LACK OF COORDINATION ) Assessment & Plan Assessment & Plan (1) COPD (chronic obstructive pulmonary disease): Comment: PATIENT HAS ADVANCED CHRONIC OBSTRUCTIVE PULMONARY DISEASE. CLINICALLY HOLDING STABLE ON HIS CURRENT MEDICAL REGIMEN FOLLOWS: SYMBICORT 160-4.52 PUFFS B.I.D. IPRATROPIUM/ALBUTEROL SOLUTION IN UPDRAFTS Q.I.D. PROAIR 2 PUFFS Q 4-6 HOURS P.R.N. WHEN OUTDOORS Code(s): J44.9 - Chronic obstructive pulmonary disease, unspecified Qualifiers: COPD type: unspecified COPD Qualified Code(s): J44.9 - Chronic obstructive pulmonary disease, unspecified (2) Exercise hypoxemia: Comment: (Exercise induced Hypoxemia - using portable O2) HE ALSO USES O2 P.R.N. AT HOME, BUT NOT AT NIGHT. Code(s): R09.02 - Hypoxemia (3) Personal history of nicotine dependence: Comment: (current smoker - onset 18yo, 1-1.5ppd x 53yrs, 65pyh - now 1-2 cig/day) Patient is participating in annual lung screening program. Once again counseled very strongly to quit smoking completely. Code(s): Z87.891 - Personal history of nicotine dependence (4) Multiple pulmonary nodules: Comment: He has been a life long smoker ,has multiple pulmonary nodules for which he is getting annual low dose CT scan. Last CT Scan in November 2022 , shows increase in size of nodule in Rt. Lower Lobe ( G G density ) to [address] Zapata has scheduled a follow-up CT scan in 6 months. Code(s): R91.8 - Other nonspecific abnormal finding of lung field Medications: Refilled albuterol sulfate 90 mcg/actuation (ProAir HFA) 2 puffs inhalation Q4-6H PRN 3 ea 3RF shortness of breath or wheezing 90 days Coding Level of Care Code Est Pt Level 3 (46314) Diagnoses COPD (chronic obstructive pulmonary disease) J44.9 COPD type: unspecified COPD Exercise hypoxemia R09.02 Personal history of nicotine dependence Z87.891 Multiple pulmonary nodules R91.8 CPT Codes Spirometry - CPT: 72758- Spirometry ([id number])
[2023-01-05 13:25] VITALS: BP 114/62; PULSE 94; O2SAT 93; BMI 29.8
== END 2023-01-05 14:04 | disposition home or self-care (01) ==
PROVIDERS: PCP Internal Medicine; Visit Provider Internal Medicine
DX: J44.9 Chronic obstructive pulmonary disease, unspecified (principal); Z87.891 Personal history of nicotine dependence; R91.8 Other nonspecific abnormal finding of lung field
CPT/HCPCS: 94010; 99213

== ENCOUNTER 2023-01-11 11:20 | Outpatient (AMB) | payer MEDICARE, SELFPAY ==
--- NOTE | 2023-01-11 11:34 | MHC.OFFVISCO ---
Intake Intake Visit Reasons: Anticoagulation Allergies No Known Allergies [No Known Allergies*] Allergy (Verified 01/11/23 11:30) Medication List - Last Reconciled 01/11/23 by Jada Bradshaw RN albuterol sulfate 2.5 mg (3 mL) inhalation Q4-6H PRN albuterol sulfate 90 mcg/actuation (ProAir HFA) 2 puffs inhalation Q4-6H PRN 90 days ipratropium-albuterol 0.5 mg-3 mg(2.5 mg base)/3 mL 3 mL inhalation QID 90 days lisinopril 2.5 mg (1/2 x 5 mg) PO DAILY metoprolol succinate ER 100 mg (2 x 50 mg) PO DAILY multivitamin (Daily Multi-Vitamin tablet) 1 tab PO DAILY nebulizers To use every 4 hours Oxygen Home Use As directed spironolactone 12.5 mg (1/2 x 25 mg) PO DAILY Symbicort 160-4.5 mcg/actuation (budesonide-formoterol) 2 puffs PO BID NS torsemide 60 mg PO ONCE PRN warfarin 5 mg See Protocol PO DAILY Nursing Note INR 1.9-? out of therapeutic range Medications and supplements reviewed Patient status: pt scheduled for cardiac cath at [facility] on 02/04/23, has been instructed to hold warfarin for 4 days pt amb to acs with walker, on cont oxygen, occ tylor cough, c.o fatigue prev inr subtherapeutic due to missed dose Medications or supplements: no changes Diet: appetite is good Denies any signs and symptoms of bleeding or clotting or unusual bruising Bleeding, bruising, clotting discussed Nutritional guidance given: no greens for 2 days, eat a red today Dose: take 5mg today then cont reg 5mg x 4, 2.5mg x 3 F/U INR Date : pt req 2 weeks? as pt has labs due that day? Patient verbalizing understanding of instructions given. Anti-Coag Initial Assessment Social Hx Patient Tobacco Use Status: Current everyday Tobacco user Tobacco use type: Cigarette Smoking packs per day: 0.5 alcohol intake: current Alcohol intake frequency: other Cardiovascular Hx: HTN, CHF, Arrhythmias and Other Lung Disease HX: COPD and Other Blood Disorder Hx: Anemia GI Hx: Diverticulosis Neurological Hx: Other Cancer HX: No Psych. Illness/Depression: No Coding Level of Care Code Est Patient Level 1 Diagnoses Current use of anticoagulant therapy Z79.01 Assessment & Plan Assessment & Plan (1) Current use of anticoagulant therapy: Code(s): Z79.01 - game trapper (current) use of anticoagulants Category: Medical
[2023-01-11 11:35] LABS: Prothrombin Time Whole Bld POC 22.8 sec (11.1-13.5); ~PT, ~INR - Anti Coag Clinic 1.9 (0.9-1.1)
== END 2023-01-11 11:48 | disposition home or self-care (01) ==
LOC: HO.ACS 11:20
PROVIDERS: PCP Internal Medicine; Visit Provider Internal Medicine
DX: Z79.01 Long term (current) use of anticoagulants (principal)

== ENCOUNTER → 2023-01-11 11:20 | Outpatient (BNVA) | payer MEDICARE, SELFPAY | PROVIDERS: PCP Internal Medicine; Visit Provider Internal Medicine | DX: I48.0 Paroxysmal atrial fibrillation (principal); Z79.01 Long term (current) use of anticoagulants; Z51.81 Encounter for therapeutic drug level monitoring | CPT/HCPCS: 85610; 99211 ==

== ENCOUNTER → 2023-01-11 23:59 | Outpatient (BNV) | payer MEDICARE, SELFPAY ==
--- NOTE | 2023-01-16 14:25 | A.OFFVIS_ITS ---
Intake Intake Visit Reasons: Remote Device Check- [employer]rionik Allergies No Known Allergies [No Known Allergies*] Allergy (Verified 01/11/23 11:30) [facility] Medical History Blind right eye Chronic systolic (congestive) heart failure COPD (chronic obstructive pulmonary disease) Exercise hypoxemia History of diverticulitis Hx of Stewart's palsy Hypertension Iron (Fe) deficiency anemia Paroxysmal atrial fibrillation Personal history of nicotine dependence Surgical History History of cardiac radiofrequency ablation History of colonoscopy History of permanent cardiac pacemaker placement (~06/2020) Family History Father No problems noted. Mother No problems noted. Brother Esophageal cancer Social History Household Members: Children Housing: [facility] Do you presently have visiting nurse or other home services: Yes ([facility]) Alcohol intake: current Alcohol intake frequency: other Patient Tobacco Use Status: Current everyday Tobacco user Tobacco use type: Cigarette Cigarette Packs Per Day: 0.5 Cigarettes Per Day: 1 Years Smoked: (onset 18yo, 1-1.5ppd x 53yrs, 65pyh - now 1cig/day) e-Cigarette/Vaping Use: Never Used Second Hand Smoke Exposure: Yes Advance Directives Date on File: 07/01/20 service: No Current occupational status: retired Current occupation: RETIRED Current occupational exposures/hazards: No Cognitive needs: No Hearing needs: No Vision needs: No Office Procedures Cardiac Device Check Cardiac Device Check Details: Date of service- 01/11/2023 ; Battery life 75%; normal lead parameters; AP 3%; ORCHID WORKER 100%; no significant arrhythmias. Overall normal device function. [id number] Cardiac Device Interrogation, pacemaker Procedure code (CPT) selection complete Assessment & Plan Assessment & Plan (1) Complete heart block: Code(s): I44.2 - Atrioventricular block, complete Coding Level of Care Code Procedure Only Diagnoses Complete heart block I44.2 CPT Codes Cardiac Device Check - Cardiac Device 12: [id number] Cardiac Device I nterrogation, pacemaker ([id number])
== END ==
PROVIDERS: PCP Internal Medicine; Visit Provider Internal Medicine
DX: I44.2 Atrioventricular block, complete (principal); Z95.0 Presence of cardiac pacemaker
CPT/HCPCS: 93294

== ENCOUNTER 2023-01-25 10:50 | Outpatient (REF) | payer MEDICARE, SELFPAY ==
[2023-01-25 13:50] LABS: Hemoglobin 12.1 g/dl (14.0-18.0); Mean Corpuscular HGB Conc 30.3 g/dl (31.0-36.0); Mean Corpuscular Hemoglobin 29.1 pg (27.0-33.0); Mean Corpuscular Volume 96.2 fL (80.0-98.0); Platelet Count 218 X10*3/uL (160-400); Red Blood Count 4.16 X10*6/uL (4.60-5.80); Red Cell Distribution Width 14.4 % (11.0-16.0); White Blood Count 11.7 X10*3/uL (4.8-10.8)
[2023-01-25 13:51] LABS: INTERNATIONAL NORM RATIO 1.4 (0.9-1.1); Prothrombin Time 16.9 SEC (11.1-13.3)
[2023-01-25 14:57] LABS: B Type Natriuretic Peptide 62 pg/mL (<100)
[2023-01-26 02:36] LABS: Anion Gap 14 (12-20); Blood Urea Nitrogen 14 mg/dL (9-16); Calcium 9.3 mg/dL (8.4-10.2); Carbon Dioxide 35 mmol/L (22-29); Chloride 98 mmol/L (96-108); Estimated Glomerular Filt Rate > 60; Glucose Random 79 mg/dL (60-115); Potassium 4.6 mmol/L (3.3-5.1); Sodium 142 mmol/L (135-145)
== END 2023-01-25 10:51 | disposition home or self-care (01) ==
LOC: HO.LAB 10:50
PROVIDERS: Absent Provider Internal Medicine Cardiovascular Disease; PCP Internal Medicine; Visit Provider Internal Medicine
DX: I48.0 Paroxysmal atrial fibrillation (principal); I25.10 Atherosclerotic heart disease of native coronary artery without angina pectoris; I50.22 Chronic systolic (congestive) heart failure; Z51.81 Encounter for therapeutic drug level monitoring; Z79.01 Long term (current) use of anticoagulants
CPT/HCPCS: 36415; 80048; 83880; 85027; 85610; 99211

== ENCOUNTER 2023-01-25 11:15 | Outpatient (AMB) | payer MEDICARE, SELFPAY ==
[2023-01-25 11:44] LABS: Prothrombin Time Whole Bld POC 18.3 sec (11.1-13.5); ~PT, ~INR - Anti Coag Clinic 1.5 (0.9-1.1)
--- NOTE | 2023-01-25 11:57 | MHC.OFFVISCO ---
Intake Intake Visit Reasons: Anticoagulation Allergies No Known Allergies [No Known Allergies*] Allergy (Verified 01/25/23 11:37) Medication List - Last Reconciled 01/25/23 by Alem Baumann RN albuterol sulfate 2.5 mg (3 mL) inhalation Q4-6H PRN albuterol sulfate 90 mcg/actuation (ProAir HFA) 2 puffs inhalation Q4-6H PRN 90 days ipratropium-albuterol 0.5 mg-3 mg(2.5 mg base)/3 mL 3 mL inhalation QID 90 days lisinopril 2.5 mg (1/2 x 5 mg) PO DAILY metoprolol succinate ER 100 mg (2 x 50 mg) PO DAILY multivitamin (Daily Multi-Vitamin tablet) 1 tab PO DAILY nebulizers To use every 4 hours Oxygen Home Use As directed spironolactone 12.5 mg (1/2 x 25 mg) PO DAILY Symbicort 160-4.5 mcg/actuation (budesonide-formoterol) 2 puffs PO BID NS torsemide 60 mg PO ONCE PRN warfarin 5 mg See Protocol PO DAILY Nursing Note pt to have cardiac cath 02/04/23? to r/o blockage and has been instructed by cardiology to hold warfarin x 4 days with last dose this sat 01/30/23 His INR today 1.5 denies any missed doses previous INR 1.9 on 01/11/23 due to a missed dose was given a booster dose then, INR 1.5? out of therapeutic range Medications and supplements reviewed Patient status: STRESS WITH SON, HAS BEEN FEELING VERY FATIGUED AND SOB - CARDIAC CATH 02/04/23 Medications or supplements: NO CHANGES Diet: MEALS ON WHEELS , FAIR Denies any signs and symptoms of bleeding or clotting or unusual bruising Bleeding, bruising, clotting discussed Nutritional guidance given: AVOID GREENS X 2 DAYS THEN POST PROCEDURE UNTIL INR 2.0 Dose: PER MD will give him a booster dose today then resume usual dose through sat? 5mg x 4 days/ 2.5mg x 3 days,? hold sun ,wed, wed, wed- procedure , resume warfarin per md with and increased dose 5mg wed sat sun wed and recheck Wednesday02/09/23 F/U INR Date : Patient verbalizing understanding of instructions given. msg sent to PCP and Cardiology regarding lovenox bridge for now and for procedure seeing that he may have a blockage already. Will call mds after offices re-open no respnose from msg left thsi amdd t/c msg with cardiology nurse Samuel spoke with PCP nurse Santiago regarding pt to convey msg to PCP Anti-Coag Initial Assessment Social Hx Patient Tobacco Use Status: Current everyday Tobacco user Tobacco use type: Cigarette Smoking packs per day: 0.5 alcohol intake: current Alcohol intake frequency: other Cardiovascular Hx: HTN, CHF, Arrhythmias and Other Lung Disease HX: COPD and Other Blood Disorder Hx: Anemia GI Hx: Diverticulosis Neurological Hx: Other Cancer HX: No Psych. Illness/Depression: No Coding Level of Care Code Est Patient Level 1 Diagnoses Current use of anticoagulant therapy Z79.01 Assessment & Plan Assessment & Plan (1) Current use of anticoagulant therapy: Code(s): Z79.01 - cigar packer (current) use of anticoagulants Category: Medical
== END 2023-01-25 12:15 | disposition home or self-care (01) ==
LOC: HO.ACS 11:15
PROVIDERS: PCP Internal Medicine; Visit Provider Internal Medicine
DX: Z79.01 Long term (current) use of anticoagulants (principal)

== ENCOUNTER → 2023-02-04 23:59 | Outpatient (BNV) | payer MEDICARE, SELFPAY | PROVIDERS: PCP Internal Medicine; Visit Provider Internal Medicine Cardiovascular Disease | DX: R93.1 Abnormal findings on diagnostic imaging of heart and coronary circulation (principal); R06.00 Dyspnea, unspecified | CPT/HCPCS: 93458; 99152 ==

== ENCOUNTER 2023-02-09 11:20 | Outpatient (AMB) | payer MEDICARE, SELFPAY ==
[2023-02-09 11:34] LABS: Prothrombin Time Whole Bld POC 15.4 sec (11.1-13.5); ~PT, ~INR - Anti Coag Clinic 1.3 (0.9-1.1)
--- NOTE | 2023-02-09 11:50 | MHC.OFFVISCO ---
Intake Intake Visit Reasons: Anticoagulation Allergies No Known Allergies [No Known Allergies*] Allergy (Verified 02/09/23 11:27) Medication List - Last Reconciled 02/09/23 by Alem Baumann RN albuterol sulfate 2.5 mg (3 mL) inhalation Q4-6H PRN albuterol sulfate 90 mcg/actuation (ProAir HFA) 2 puffs inhalation Q4-6H PRN 90 days ipratropium-albuterol 0.5 mg-3 mg(2.5 mg base)/3 mL 3 mL inhalation QID 90 days lisinopril 2.5 mg (1/2 x 5 mg) PO DAILY metoprolol succinate ER 100 mg (2 x 50 mg) PO DAILY multivitamin (Daily Multi-Vitamin tablet) 1 tab PO DAILY nebulizers To use every 4 hours Oxygen Home Use As directed spironolactone 12.5 mg (1/2 x 25 mg) PO DAILY Symbicort 160-4.5 mcg/actuation (budesonide-formoterol) 2 puffs PO BID NS torsemide 60 mg PO ONCE PRN warfarin 5 mg See Protocol PO DAILY Nursing Note S/P CARDIAC CATH 02/04/23 OFF WARFARIN 4 DAYS PRIOR AND 2 DAYS POST PROCEDURE ( 6 DAYS OFF WARFARIN) INR 1.3 out of therapeutic range Medications and supplements reviewed Patient status: WAITING RESULTS OF CATH, RIGHT WRIST SITE IS CLEAN AND DRY WITH LARGE FADING BRUISE , SLIGHT HEMATOMA, NO REDNESS OR HEAT, SLIGHT SWELLING Medications or supplements: NO CHANGES AT THIS TIME, HE HAS ONLY BEEN BACK ON THE WARFARIN 3 DAYS Diet: GOOD Denies any signs and symptoms of bleeding or clotting or unusual bruising Bleeding, bruising, clotting discussed Nutritional guidance given: AVOID ALL GREENS OF ANY KIND X 3 DAYS, EAT ORANGE AND REDS TODAY Dose: 5MG Wed 2.5MG WED THEN 5MG X 5 DAYS/ 2.5MG X 2 DAYS NEXT WEEK F/U INR Date: WANTED PT TO COME THIS WEDNESDAY FOR AN INR CHECK - HE STATED THAT IT IS TOO DIFFICULT WITH HIM DUE TO TRANSPORTATION, HE REQUESTED 02/18/23 THE SAME DAY HIS CARDIOLOGY APPT. ?? Patient verbalizing understanding of instructions given.PT ENC TO ALL WITH ANY MED CHANGES OR ANY UNUSUAL BLEEDING OR BRUIS PCP NOTIFIED OF PT INR, PLAN OF CARE AND NEXT F/U APPT PT ENC TO ALL WITH ANY MED CHANGES OR ANY UNUSUAL BLEEDING OR BRUISING Anti-Coag Initial Assessment Social Hx Patient Tobacco Use Status: Current everyday Tobacco user Tobacco use type: Cigarette Smoking packs per day: 0.5 alcohol intake: current Alcohol intake frequency: other Cardiovascular Hx: HTN, CHF, Arrhythmias and Other Lung Disease HX: COPD and Other Blood Disorder Hx: Anemia GI Hx: Diverticulosis Neurological Hx: Other Cancer HX: No Psych. Illness/Depression: No Coding Level of Care Code Est Patient Level 1 Diagnoses Current use of anticoagulant therapy Z79.01 Comment T/C AND MSG TO PCP Assessment & Plan Assessment & Plan (1) Current use of anticoagulant therapy: Code(s): Z79.01 - FDC (current) use of anticoagulants Category: Medical
== END 2023-02-09 11:59 | disposition home or self-care (01) ==
LOC: HO.ACS 11:20
PROVIDERS: PCP Internal Medicine; Visit Provider Internal Medicine
DX: Z79.01 Long term (current) use of anticoagulants (principal)

== ENCOUNTER → 2023-02-09 11:20 | Outpatient (BNVA) | payer MEDICARE, SELFPAY | PROVIDERS: PCP Internal Medicine; Visit Provider Internal Medicine | DX: I48.0 Paroxysmal atrial fibrillation (principal); Z79.01 Long term (current) use of anticoagulants; Z51.81 Encounter for therapeutic drug level monitoring | CPT/HCPCS: 85610; 99211 ==

== ENCOUNTER 2023-02-18 13:23 | Outpatient (AMB) | payer MEDICARE, SELFPAY ==
--- NOTE | 2023-02-18 13:57 | MHC.OFFVISCO ---
Intake Intake Visit Reasons: Anticoagulation Allergies No Known Allergies [No Known Allergies*] Allergy (Verified 02/18/23 14:05) Medication List - Last Reconciled 02/18/23 by Jerilyn Galicia RN albuterol sulfate 2.5 mg (3 mL) inhalation Q4-6H PRN albuterol sulfate 90 mcg/actuation (ProAir HFA) 2 puffs inhalation Q4-6H PRN 90 days ipratropium-albuterol 0.5 mg-3 mg(2.5 mg base)/3 mL 3 mL inhalation QID 90 days lisinopril 2.5 mg (1/2 x 5 mg) PO DAILY metoprolol succinate ER 100 mg (2 x 50 mg) PO DAILY multivitamin (Daily Multi-Vitamin tablet) 1 tab PO DAILY nebulizers To use every 4 hours Oxygen Home Use As directed spironolactone 12.5 mg (1/2 x 25 mg) PO DAILY Symbicort 160-4.5 mcg/actuation (budesonide-formoterol) 2 puffs PO BID NS torsemide 60 mg PO ONCE PRN warfarin 5 mg See Protocol PO DAILY Nursing Note Amb to [facility] using walker, wear cont O2 feeling ok S/P cardiac cath 02/04 has cardiology appointment after this visit Medications and supplements reviewed No changes in health, diet, medications, or supplements, sts trying to cut down on cigaretts Denies any unusual signs and symptoms of bruising, bleeding Denies any new Chest pain, SOB, or clotting INR: 2.0 just in therapeutic range Nutritional guidance given: introduce usual greens and balance greens and reds in diet Dose: continue new dosing;2.5mg x 2 days and 5mg x 5 days, instructed to follow dosing sheet carefully as many changes over last couple visits F/U INR:recommended 10days, pt coming back 3 weeks Patient verbalizes understanding of instructions given with accurate read back/ teach back of dosing Anti-Coag Initial Assessment Social Hx Patient Tobacco Use Status: Current everyday Tobacco user Tobacco use type: Cigarette Smoking packs per day: 0.5 alcohol intake: current Alcohol intake frequency: other Cardiovascular Hx: HTN, CHF, Arrhythmias and Other Lung Disease HX: COPD and Other Blood Disorder Hx: Anemia GI Hx: Diverticulosis Neurological Hx: Other Cancer HX: No Psych. Illness/Depression: No Coding Level of Care Code Est Patient Level 1 Diagnoses Current use of anticoagulant therapy Z79.01 Time Spent (min) 20 Assessment & Plan Assessment & Plan (1) Current use of anticoagulant therapy: Code(s): Z79.01 - FPC (current) use of anticoagulants Category: Medical
== END 2023-02-18 15:22 | disposition home or self-care (01) ==
LOC: HO.ACS 13:23
PROVIDERS: PCP Internal Medicine; Visit Provider Internal Medicine
DX: Z79.01 Long term (current) use of anticoagulants (principal)

== ENCOUNTER → 2023-02-18 13:23 | Outpatient (BNVA) | payer MEDICARE, SELFPAY | PROVIDERS: PCP Internal Medicine; Visit Provider Internal Medicine | DX: I48.0 Paroxysmal atrial fibrillation (principal); J44.9 Chronic obstructive pulmonary disease, unspecified; Z98.890 Other specified postprocedural states; Z87.891 Personal history of nicotine dependence; Z95.0 Presence of cardiac pacemaker; Z79.01 Long term (current) use of anticoagulants; Z51.81 Encounter for therapeutic drug level monitoring | CPT/HCPCS: 85610; 99211; 99212 ==

== ENCOUNTER 2023-02-18 13:59 | Outpatient (AMB) | payer MEDICARE, SELFPAY ==
[2023-02-18 14:01] VITALS: BP 114/72; PULSE 84; BMI 30.2
--- NOTE | 2023-02-18 14:01 | A.OFFVIS_ITS ---
Intake Vital Signs 02/18/23 14:01 Height 5 ft 8 in Weight 198 lb 13.711 oz BMI 30.2 BP 114/72 Blood Pressure Location Lt brachial Position Sitting Pulse 84 Pulse Source Pulse Oximeter Intake Visit Reasons: Follow up post cardiac cath Intake Note: f/u cardiac cath Home Health Outreach Coordinator Required: No Allergies No Known Allergies [No Known Allergies*] Allergy (Verified 02/18/23 14:05) Medication List - Last Reconciled 02/18/23 by LYN CarusoC albuterol sulfate 2.5 mg (3 mL) inhalation Q4-6H PRN albuterol sulfate 90 mcg/actuation (ProAir HFA) 2 puffs inhalation Q4-6H PRN 90 days ipratropium-albuterol 0.5 mg-3 mg(2.5 mg base)/3 mL 3 mL inhalation QID 90 days lisinopril 2.5 mg (1/2 x 5 mg) PO DAILY metoprolol succinate ER 100 mg (2 x 50 mg) PO DAILY multivitamin (Daily Multi-Vitamin tablet) 1 tab PO DAILY nebulizers To use every 4 hours Oxygen Home Use As directed spironolactone 12.5 mg (1/2 x 25 mg) PO DAILY Symbicort 160-4.5 mcg/actuation (budesonide-formoterol) 2 puffs PO BID NS torsemide 60 mg PO ONCE PRN warfarin 5 mg See Protocol PO DAILY HPI Follow up post cardiac cath HPI Details Stan is a 72-year-old male with past medical history of hypertension, COPD, O2 dependent, complete heart block status post dual-chamber pacemaker placement, nonischemic cardiomyopathy, recently underwent a cardiac catheterization and presents for follow-up. Today he reports he has chronic shortness of breath which is unchanged in recent months. He wears oxygen continually and does updraft treatments every 3-4 hours at home. He reports shortness of breath with physical activities. No chest discomfort, palpitations, presyncope, syncope, falls, PND, edema. He reports compliance with his meds. He admits to drinking a 6 pack beer on the weekend. He tells me his beer drinking will increase due to football season. 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 Mother No problems noted. Brother Esophageal cancer Social History Household Members: Children [facility] Do you presently have visiting nurse or other home services: Yes ([facility]) Alcohol intake: current Alcohol intake frequency: other Patient Tobacco Use Status: Current everyday Tobacco user Tobacco use type: Cigarette Cigarette Packs Per Day: 0.5 Cigarettes Per Day: 1 Years Smoked: (onset 18yo, 1-1.5ppd x 53yrs, 65pyh - now 1cig/day) e-Cigarette/Vaping Use: Never Used Second Hand Smoke Exposure: Yes Advance Directives Date on File: 07/01/20 service: No Current occupational status: retired Current occupation: RETIRED Current occupational exposures/hazards: No Cognitive needs: No Hearing needs: No Vision needs: No Review of Systems Const All systems reviewed & are unremarkable except as noted in HPI and below ENT Denies dizziness Card Denies chest pain, Denies chest pain at rest, Denies chest pain with activity, Denies rapid heart rate, Denies pedal edema, Denies edema, Denies leg edema, Denies lightheadedness, Denies palpitations, Reports dyspnea, Reports dyspnea on exertion and Reports orthopnea Resp Denies cough, Reports dyspnea and Reports dyspnea on exertion GI Denies hematochezia and Denies change in stool character Musc Denies abnormal gait, Denies limited range of motion, Denies muscle cramps, Denies muscle weakness, Denies numbness, Denies radiating pain into limb, Denies stiffness and Denies tingling Neuro Denies abnormal gait, Denies dizziness, Denies numbness and Denies tingling Endo Denies palpitations Physical Exam Vital Signs: Last Vital Signs Pulse 84 02/18/23 14:01 BP 114/72 02/18/23 14:01 BMI result Body Mass Index 30.2 Const General: cooperative and no acute distress Orientation/consciousness: patient oriented x3 Neck Neck: Yes normal visual inspection Resp Other: Increased work of breathing, wearing oxygen with nasal cannula, lung sounds diminished throughout with fine expiratory wheezes noted Auscultation: no rales and no rhonchi Cardio Jugular venous distension: no JVD Rate: regular rate Rhythm: regular rhythm Heart sounds: S1 normal heart sound present, S2 normal heart sound present, no gallops, no murmurs and no rubs Neuro General: patient oriented x3 Extrem General: Yes normal to inspection Psych Appearance: grossly normal Mental Status: mental status grossly normal Speech and movement: Normal speech and movement present Assessment & Plan Assessment & Plan (1) Nonischemic cardiomyopathy: Comment: 02/04/2023, LAD and left circumflex with minimal luminal irregularities, left main and RCA normal Code(s): I42.8 - Other cardiomyopathies Plan: History of cardiomyopathy. Previously followed by [facility]. Prior echoes with EF as low as 25-30%. Prior echo at [facility] [id number] showed EF 45-50%. Repeat echo done 11/17/2022 showed EF 32%. He has been on medications for neurohormonal modulation including metoprolol XL and lisinopril. His blood pressure is controlled at 114/72, pulse 84. He has chronic shortness of breath related to COPD and is O2 dependent. On examination he does not appear fluid overloaded. He did undergo a cardiac catheterization on 02/04 which showed only minimal luminal irregularities of the LAD and left circumflex. His cardiomyopathy is nonischemic. Will continue with current medications. Instructed on reduction/sensation of alcohol use. Did spent several minutes discussing benefit of OB TECH and OB TECH D. Patient is somewhat overwhelmed at present. He is not interested in go undergoing any further procedures at this time. We agreed on rechecking echocardiogram in about 10 weeks with Cardiology follow-up 12 weeks, sooner if needed. If EF remains less than 35% he will consider whichever procedure is most beneficial. Signs and symptoms of heart failure reviewed with him. He has torsemide to use as needed, no recent use required (2) S/P cardiac catheterization: Comment: 02/04/2023 lad and left circumflex minimal luminal irregularity Code(s): Z98.890 - Other specified postprocedural states Plan: Right radial catheterization site well healed. (3) Pacemaker: Onset Date: ~06/2020 Comment: (Biotronik DCPP - placed 07/01/2020) Code(s): Z95.0 - Presence of cardiac pacemaker Plan: Biotronik dual-chamber pacemaker. Office interrogation done last visit, 01/04/2023. Next office interrogation due in 4-5 months. He does have remote monitoring use. (4) Paroxysmal atrial fibrillation: Code(s): I48.0 - Paroxysmal atrial fibrillation Plan: History of paroxysmal atrial fibrillation with ablation 2019. No reports of heart palpitations. He is on metoprolol XL for heart rate control. He is on Coumadin for anticoagulation. He follows with the [facility] anticoagulation Clinic. INR goal 2-3. No bleeding issues reported (5) Personal history of nicotine dependence: Comment: (current smoker - onset 18yo, 1-1.5ppd x 53yrs, 65pyh - now 1-2 cig/day) Patient is participating in annual lung screening program. Once again counseled very strongly to quit smoking completely. Code(s): Z87.891 - Personal history of nicotine dependence (6) COPD (chronic obstructive pulmonary disease): Comment: PATIENT HAS ADVANCED CHRONIC OBSTRUCTIVE PULMONARY DISEASE. CLINICALLY HOLDING STABLE ON HIS CURRENT MEDICAL REGIMEN FOLLOWS: SYMBICORT 160-4.52 PUFFS B.I.D. IPRATROPIUM/ALBUTEROL SOLUTION IN UPDRAFTS Q.I.D. PROAIR 2 PUFFS Q 4-6 HOURS P.R.N. WHEN OUTDOORS Code(s): J44.9 - Chronic obstructive pulmonary disease, unspecified Qualifiers: COPD type: unspecified COPD Qualified Code(s): J44.9 - Chronic obstructive pulmonary disease, unspecified Plan: Follows with pulmonology Orders: Orders CA echo limited 10 Weeks I42.8 - Other cardiomyopathies Coding Level of Care Code Est Pt Level 4 (29129) Diagnoses Nonischemic cardiomyopathy I42.8 S/P cardiac catheterization Z98.890 Pacemaker Z95.0 Paroxysmal atrial fibrillation I48.0 Personal history of nicotine dependence Z87.891 Chronic obstructive pulmonary disease, unspecified COPD type J44.9 COPD type: unspecified COPD Time Spent (min) 28
== END 2023-02-18 14:33 | disposition home or self-care (01) ==
PROVIDERS: PCP Internal Medicine; Referring Provider Internal Medicine; Visit Provider Nurse Practitioner Family
DX: I42.8 Other cardiomyopathies (principal); Z98.890 Other specified postprocedural states; Z95.0 Presence of cardiac pacemaker; I48.0 Paroxysmal atrial fibrillation; Z87.891 Personal history of nicotine dependence; J44.9 Chronic obstructive pulmonary disease, unspecified
CPT/HCPCS: 99214

== ENCOUNTER 2023-03-11 13:03 | Outpatient (AMB) | payer MEDICARE, SELFPAY ==
--- NOTE | 2023-03-11 13:07 | MHC.OFFVISCO ---
Intake Intake Visit Reasons: Anticoagulation Allergies No Known Allergies [No Known Allergies*] Allergy (Verified 03/11/23 13:04) Medication List - Last Reconciled 03/11/23 by Jada Bradshaw RN albuterol sulfate 2.5 mg (3 mL) inhalation Q4-6H PRN albuterol sulfate 90 mcg/actuation (ProAir HFA) 2 puffs inhalation Q4-6H PRN 90 days ipratropium-albuterol 0.5 mg-3 mg(2.5 mg base)/3 mL 3 mL inhalation QID 90 days lisinopril 2.5 mg (1/2 x 5 mg) PO DAILY metoprolol succinate ER 100 mg (2 x 50 mg) PO DAILY multivitamin (Daily Multi-Vitamin tablet) 1 tab PO DAILY nebulizers To use every 4 hours Oxygen Home Use As directed spironolactone 12.5 mg (1/2 x 25 mg) PO DAILY Symbicort 160-4.5 mcg/actuation (budesonide-formoterol) 2 puffs PO BID NS torsemide 60 mg PO ONCE PRN warfarin 5 mg See Protocol PO DAILY Nursing Note INR: 2.1- in therapeutic range Medications and supplements reviewed No changes in health, diet, medications, or supplements, Denies any signs and symptoms of bleeding or bruising or clotting. Bleeding, bruising, clotting discussed Nutritional guidance given Dose: 2.5mg x 2, 5mg x 5 F/U INR: pt req 4 week f/u Patient verbalizes understanding of instructions given pt amb with walker, cont oxygen at 2.5 liters cont Anti-Coag Initial Assessment Social Hx Patient Tobacco Use Status: Current everyday Tobacco user Tobacco use type: Cigarette Smoking packs per day: 0.5 alcohol intake: current Alcohol intake frequency: other Cardiovascular Hx: HTN, CHF, Arrhythmias and Other Lung Disease HX: COPD and Other Blood Disorder Hx: Anemia GI Hx: Diverticulosis Neurological Hx: Other Cancer HX: No Psych. Illness/Depression: No Coding Level of Care Code Est Patient Level 1 Diagnoses Current use of anticoagulant therapy Z79.01 Assessment & Plan Assessment & Plan (1) Current use of anticoagulant therapy: Code(s): Z79.01 - termination clerk (current) use of anticoagulants Category: Medical
[2023-03-11 13:09] LABS: Prothrombin Time Whole Bld POC 24.9 sec (11.1-13.5); ~PT, ~INR - Anti Coag Clinic 2.1 (0.9-1.1)
== END 2023-03-11 13:36 | disposition home or self-care (01) ==
LOC: HO.ACS 13:03
PROVIDERS: PCP Internal Medicine; Visit Provider Internal Medicine
DX: Z79.01 Long term (current) use of anticoagulants (principal)

== ENCOUNTER → 2023-03-11 13:03 | Outpatient (BNVA) | payer MEDICARE, SELFPAY | PROVIDERS: PCP Internal Medicine; Visit Provider Internal Medicine | DX: I48.0 Paroxysmal atrial fibrillation (principal); Z79.01 Long term (current) use of anticoagulants; Z51.81 Encounter for therapeutic drug level monitoring | CPT/HCPCS: 85610; 99211 ==

== ENCOUNTER 2023-04-08 11:49 | Outpatient (AMB) | payer MEDICARE, SELFPAY ==
--- NOTE | 2023-04-08 11:52 | MHC.OFFVISCO ---
Intake Intake Visit Reasons: Anticoagulation Allergies No Known Allergies [No Known Allergies*] Allergy (Verified 04/08/23 11:50) Medication List - Last Reconciled 04/08/23 by Alem Baumann RN albuterol sulfate 2.5 mg (3 mL) inhalation Q4-6H PRN albuterol sulfate 90 mcg/actuation (ProAir HFA) 2 puffs inhalation Q4-6H PRN 90 days azelastine intranasal ipratropium-albuterol 0.5 mg-3 mg(2.5 mg base)/3 mL 3 mL inhalation QID 90 days lisinopril 2.5 mg (1/2 x 5 mg) PO DAILY metoprolol succinate ER 100 mg (2 x 50 mg) PO DAILY multivitamin (Daily Multi-Vitamin tablet) 1 tab PO DAILY nebulizers To use every 4 hours Oxygen Home Use As directed spironolactone 12.5 mg (1/2 x 25 mg) PO DAILY Symbicort 160-4.5 mcg/actuation (budesonide-formoterol) 2 puffs PO BID NS torsemide 60 mg PO ONCE PRN warfarin 5 mg See Protocol PO DAILY Nursing Note EXPANSE PT VIST DELAYED DUE TO METER INTERFACING DELAYS Pt came at 11 am instead of 1 pm - pt seen due to transportation needs and O2 use INR 2.0 verbalizes no changes no s/sx of bleeding bruising or clotting Keep same dose 2.5mg x 2 days/ 5mg x 5 days f/u INR 1 month verbalizes understanding of dosing and next f/u appt time 11am Anti-Coag Initial Assessment Social Hx Patient Tobacco Use Status: Current everyday Tobacco user Tobacco use type: Cigarette Smoking packs per day: 0.5 alcohol intake: current Alcohol intake frequency: other Cardiovascular Hx: HTN, CHF, Arrhythmias and Other Lung Disease HX: COPD and Other Blood Disorder Hx: Anemia GI Hx: Diverticulosis Neurological Hx: Other Cancer HX: No Psych. Illness/Depression: No Coding Level of Care Code Est Patient Level 1 Diagnoses Current use of anticoagulant therapy Z79.01 Assessment & Plan Assessment & Plan (1) Current use of anticoagulant therapy: Code(s): Z79.01 - skilled nursing (current) use of anticoagulants Category: Medical
[2023-04-08 11:57] LABS: Prothrombin Time Whole Bld POC 24.4 sec (11.1-13.5)
== END 2023-04-08 12:05 | disposition home or self-care (01) ==
LOC: HO.ACS 11:49
PROVIDERS: PCP Internal Medicine; Visit Provider Internal Medicine
DX: Z79.01 Long term (current) use of anticoagulants (principal)

== ENCOUNTER → 2023-04-08 11:49 | Outpatient (BNVA) | payer MEDICARE, SELFPAY | PROVIDERS: PCP Internal Medicine; Visit Provider Internal Medicine | DX: I48.0 Paroxysmal atrial fibrillation (principal); Z79.01 Long term (current) use of anticoagulants; Z51.81 Encounter for therapeutic drug level monitoring | CPT/HCPCS: 85610; 99211 ==

== ENCOUNTER → 2023-04-13 23:59 | Outpatient (BNV) | payer MEDICARE, SELFPAY ==
--- NOTE | 2023-04-14 08:29 | A.OFFVIS_ITS ---
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 Mother No problems noted. Brother Esophageal cancer Social History Household Members: Children Housing: [facility] Do you presently have visiting nurse or other home services: Yes ([facility]) Alcohol intake: current Alcohol intake frequency: other Patient Tobacco Use Status: Current everyday Tobacco user Tobacco use type: Cigarette Cigarette Packs Per Day: 0.5 Cigarettes Per Day: 1 Years Smoked: (onset 18yo, 1-1.5ppd x 53yrs, 65pyh - now 1cig/day) e-Cigarette/Vaping Use: Never Used Second Hand Smoke Exposure: Yes Advance Directives Date on File: 07/01/20 service: No Current occupational status: retired Current occupation: RETIRED Current occupational exposures/hazards: No Cognitive needs: No Hearing needs: No Vision needs: No Office Procedures Cardiac Device Check Cardiac Device Check Details: Date of service- 04/13/2023 ; Battery life 75%; normal lead parameters; AP 1%; MAT REPAIRER 100%; no significant arrhythmias. Overall normal device function. [id number] Cardiac Device Interrogation, pacemaker Procedure code (CPT) selection complete Assessment & Plan Assessment & Plan (1) Complete heart block: Code(s): I44.2 - Atrioventricular block, complete Coding Level of Care Code Procedure Only Diagnoses Complete heart block I44.2 CPT Codes Cardiac Device Check - Cardiac Device 12: [id number] Cardiac Device Interrogation, pacemaker ([id number])
== END ==
PROVIDERS: PCP Internal Medicine; Visit Provider Internal Medicine
DX: I44.2 Atrioventricular block, complete (principal); Z95.0 Presence of cardiac pacemaker
CPT/HCPCS: 93294

== ENCOUNTER → 2023-04-19 12:53 | Outpatient (REF) | payer MEDICARE, SELFPAY ==
--- NOTE | 2023-04-19 12:55 | CA_ITS ---
Transthoracic Echocardiogram Patient (Last, First, Middle): Stan Sherman, Gender: Male Date of : 1950 Age: 73 Procedure Date: 04/19/2023 Procedure Type: Transthoracic Echocardiogram Location: OP Height: 172.72 cm Weight: 90.72 kg BSA: 2.04 m2 Heart Rate: 82 bpm BP: 118 / 64 mmHg Utility Tender Carding: AXEL Referring MD: Ambar De Paz VEHICLE SERVICE AGENT-Mary Kay Transition Manager: Jose Perales MD Symptoms: I42.8 - Other cardiomyopathies Study Quality: Fair ECG Rhythm: Paced Conclusions: - Mildly reduced LV systolic function with LVEF of 45-50% with impaired relaxation filling pattern Findings Procedure Information Contrast agent, definity, is being given per protocol without apparent complications. Left Ventricle Normal left ventricular cavity size. The left ventricular systolic function is mildly decreased. The visually estimated ejection fraction is between 45 50%. There is paradoxical septal motion consistent with a right ventricular pacemaker. Spectral Doppler is indicative of an impaired relaxation filling pattern. E/E prime ratio is between 8 and 15 consistent with indeterminate filling pressures. Prior Study Comparison Changes noted compared to prior study dated: 12/07/2022. LV systolic function has improved Measurements 2D Linear Measurements IVSd: 1.09 0.6-0.9/0.6-1.0 cm LVIDd: 5.61 3.9-5.3/4.2-5.9 cm LVIDd Index: 2.75 2.4-3.2/2.2-3.1 cm/m2 LVIDs: 3.91 2.0-3.6 cm LVPWd: 1.03 0.7-1.1 cm LV Mass: 296.74 67-162/88-224 g LV Mass Index: 145.46 43-95/49-115 g/m2 LVOT Diam: 2.50 3.0+(-)1.3 cm 2D Systolic Function EF 4C: 51.80 >55% EF 2C: 39.80 >55% EF BiP: 47.40 >55% Mitral Valve MV Pk E: 0.68 MV PK A: 0.62 MV Decel Time: 181.00 E/A: 1.10 E'Lateral: 6.85 E'Medial: 4.13 E/E' Med: 16.50 E/E' Lat: 9.90 PHT: 53.00 MVA PHT: 4.15 Decel [place]: 3.77 LVOT LVOT Diam: 2.50 LVOT Area: 4.91 Diastolic Function MV Pk E: 0.68 MV Pk A: 0.62 E/A: 1.10 E'Medial: 4.13 E/E' Med: 16.50 E' Laterial: 6.85 E/E' Lat: 9.90 Tricuspid Valve RA Press: 3.00 Updated in Other Vendor System with Status of Final Jose Perales MD electronically signed on 04/19/2023 5:24:06 PM with status of Final
== END ==
LOC: HO.CARD 12:53
PROVIDERS: PCP Internal Medicine; Visit Provider Nurse Practitioner Family
DX: I42.8 Other cardiomyopathies (principal)
CPT/HCPCS: 93308; Q9957

== ENCOUNTER → 2023-04-19 12:55 | Outpatient (BNV) | payer MEDICARE, SELFPAY | PROVIDERS: PCP Internal Medicine; Visit Provider Internal Medicine Cardiovascular Disease | DX: I42.8 Other cardiomyopathies (principal) | CPT/HCPCS: 93308 ==

== ENCOUNTER 2023-05-20 11:06 | Outpatient (AMB) | payer MEDICARE, SELFPAY ==
[2023-05-20 11:13] LABS: ~PT, ~INR - Anti Coag Clinic 1.8 (0.9-1.1)
--- NOTE | 2023-05-20 11:25 | MHC.OFFVISCO ---
Intake Intake Visit Reasons: Anticoagulation Allergies No Known Allergies [No Known Allergies*] Allergy (Verified 05/20/23 11:07) Medication List - Last Reconciled 05/20/23 by Alem Baumann RN albuterol sulfate 2.5 mg (3 mL) inhalation Q4-6H PRN albuterol sulfate 90 mcg/actuation (ProAir HFA) 2 puffs inhalation Q4-6H PRN 90 days azelastine intranasal ipratropium-albuterol 0.5 mg-3 mg(2.5 mg base)/3 mL 3 mL inhalation QID 90 days lisinopril 2.5 mg (1/2 x 5 mg) PO DAILY metoprolol succinate ER 100 mg (2 x 50 mg) PO DAILY multivitamin (Daily Multi-Vitamin tablet) 1 tab PO DAILY nebulizers To use every 4 hours Oxygen Home Use As directed spironolactone 12.5 mg (1/2 x 25 mg) PO DAILY Symbicort 160-4.5 mcg/actuation (budesonide-formoterol) 2 puffs PO BID NS torsemide 60 mg PO ONCE PRN warfarin 5 mg PO DAILY Nursing Note INR: 1.8 OUT OF therapeutic range Medications and supplements reviewed No changes in health, diet, medications, or supplements, Denies any signs and symptoms of bleeding or bruising or clotting. Bleeding, bruising, clotting discussed Nutritional guidance given - AVOID GREENS TODAY AND T[place]OROW , EAT ORANGE AND REDS TO HELP RAISE THE INR Dose: INCREASE DOSE TODAY 5MG THEN RESUME USUAL DOSE 2.5MG X 2 DAYS/ 5MG X 5 DAYS F/U INR: 06/03/23 Patient verbalizes understanding of instructions given Anti-Coag Initial Assessment Social Hx Patient Tobacco Use Status: Current everyday Tobacco user Tobacco use type: Cigarette Smoking packs per day: 0.5 alcohol intake: current Alcohol intake frequency: other Cardiovascular Hx: HTN, CHF, Arrhythmias and Other Lung Disease HX: COPD and Other Blood Disorder Hx: Anemia GI Hx: Diverticulosis Neurological Hx: Other Cancer HX: No Psych. Illness/Depression: No Coding Level of Care Code Est Patient Level 1 Diagnoses Current use of anticoagulant therapy Z79.01 Assessment & Plan Assessment & Plan (1) Current use of anticoagulant therapy: Code(s): Z79.01 - rn long term care (current) use of anticoagulants Category: Medical
== END 2023-05-20 11:47 | disposition home or self-care (01) ==
LOC: HO.ACS 11:06
PROVIDERS: PCP Internal Medicine; Visit Provider Internal Medicine
DX: Z79.01 Long term (current) use of anticoagulants (principal)

== ENCOUNTER → 2023-05-20 11:06 | Outpatient (BNVA) | payer MEDICARE, SELFPAY | PROVIDERS: PCP Internal Medicine; Visit Provider Internal Medicine | DX: I48.0 Paroxysmal atrial fibrillation (principal); Z79.01 Long term (current) use of anticoagulants; Z51.81 Encounter for therapeutic drug level monitoring | CPT/HCPCS: 85610; 99211 ==

== ENCOUNTER → 2023-06-03 12:29 | Outpatient (BNVA) | payer MEDICARE, SELFPAY | PROVIDERS: PCP Internal Medicine; Visit Provider Nurse Practitioner Family | DX: I48.0 Paroxysmal atrial fibrillation (principal); Z79.01 Long term (current) use of anticoagulants; Z51.81 Encounter for therapeutic drug level monitoring; I42.8 Other cardiomyopathies; J44.9 Chronic obstructive pulmonary disease, unspecified; Z95.0 Presence of cardiac pacemaker; Z87.891 Personal history of nicotine dependence | CPT/HCPCS: 85610; 99211; 99212 ==

== ENCOUNTER 2023-06-03 12:30 | Outpatient (AMB) | payer MEDICARE, SELFPAY ==
[2023-06-03 12:55] VITALS: BP 114/62; PULSE 87; BMI 30.4
--- NOTE | 2023-06-03 12:55 | A.OFFVIS_ITS ---
Intake Vital Signs 06/03/23 12:55 Height 5 ft 8 in Weight 200 lb 2.876 oz BMI 30.4 BP 114/62 Blood Pressure Location Rt brachial Position Sitting Pulse 87 Pulse Source Pulse Oximeter Intake Visit Reasons: 3M Echo Counting Machine Operator Required: No Allergies No Known Allergies [No Known Allergies*] Allergy (Verified 06/03/23 13:34) Medication List - Last Reconciled 06/03/23 by Ambar De Paz CERTIFIED PROSTHETIST-C albuterol sulfate 2.5 mg (3 mL) inhalation Q4-6H PRN albuterol sulfate 90 mcg/actuation (ProAir HFA) 2 puffs inhalation Q4-6H PRN 90 days azelastine intranasal ipratropium-albuterol 0.5 mg-3 mg(2.5 mg base)/3 mL 3 mL inhalation QID 90 days lisinopril 2.5 mg (1/2 x 5 mg) PO DAILY metoprolol succinate ER 100 mg (2 x 50 mg) PO DAILY multivitamin (Daily Multi-Vitamin tablet) 1 tab PO DAILY nebulizers To use every 4 hours Oxygen Home Use As directed spironolactone 12.5 mg (1/2 x 25 mg) PO DAILY Symbicort 160-4.5 mcg/actuation (budesonide-formoterol) 2 puffs PO BID NS torsemide 60 mg PO ONCE PRN warfarin 5 mg See Protocol PO DAILY HPI 3M Echo HPI Details Stan is a 73-year-old male with past medical history of hypertension, COPD, O2 dependent, complete heart block status post dual-chamber pacemaker placement, nonischemic cardiomyopathy, no significant CAD on recent cardiac catheterization who now presents for follow-up. Today he reports he has been overall stable. He has chronic shortness of breath and uses oxygen as needed. He did not bring his walker today so he is more short of breath upon arriving to this visit than he normally would be. No chest discomfort, heart palpitations, presyncope, syncope, PND, orthopnea or edema. No bleeding issues with Coumadin. He has not required diuretics recently. He is taking all meds as directed. 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 Mother No problems noted. Brother Esophageal cancer Social History Household Members: Children Housing: [facility] Do you presently have visiting nurse or other home services: Yes ([facility] Alcohol intake: current Alcohol intake frequency: other Comment: no telesitter available at this time Patient Tobacco Use Status: Current everyday Tobacco user Tobacco use type: Cigarette Cigarette Packs Per Day: 0.5 Cigarettes Per Day: 1 Years Smoked: (onset 18yo, 1-1.5ppd x 53yrs, 65pyh - now 1cig/day) e-Cigarette/Vaping Use: Never Used Second Hand Smoke Exposure: Yes Advance Directives Date on File: 07/01/20 service: No Current occupational status: retired Current occupation: RETIRED Current occupational exposures/hazards: No Cognitive needs: No Hearing needs: No Vision needs: No Review of Systems Const All systems reviewed & are unremarkable except as noted in HPI and below ENT Denies dizziness Card Denies chest pain, Denies chest pain at rest, Denies chest pain with activity, Denies rapid heart rate, Denies pedal edema, Denies edema, Denies leg edema, Denies lightheadedness, Denies palpitations, Reports dyspnea, Reports dyspnea on exertion and Denies orthopnea Resp Details: wearing supplemental O2 Denies cough, Reports dyspnea and Reports dyspnea on exertion GI Denies hematochezia and Denies change in stool character Musc Denies abnormal gait, Denies limited range of motion, Denies muscle cramps, Denies muscle weakness, Denies numbness, Denies radiating pain into limb, Denies stiffness and Denies tingling Neuro Denies abnormal gait, Denies dizziness, Denies numbness and Denies tingling Endo Denies palpitations Physical Exam Vital Signs: Last Vital Signs Pulse 87 06/03/23 12:55 BP 114/62 06/03/23 12:55 BMI result Body Mass Index 30.4 Const General: cooperative, comfortable and no acute distress Orientation/consciousness: patient oriented x3 Neck Neck: Yes normal visual inspection Resp Other: Lungs diminished bilaterally Effort & Inspection: normal respiratory effort Auscultation: no crackles, no rales, no rhonchi and wheezes (Expiratory wheezes bilaterally) Cardio Jugular venous distension: no JVD Rate: regular rate Rhythm: regular rhythm Heart sounds: S1 normal heart sound present, S2 normal heart sound present, no murmurs and no rubs Neuro General: patient oriented x3 Extrem General: Yes normal to inspection and No no pedal edema Psych Appearance: grossly normal Mental Status: mental status grossly normal Speech and movement: Normal speech and movement present Results AMB INR Fingerstick AMB INR Fingerstick 2.1 Last Edit by Jerilyn Galicia RN on 06/03/23 13:45 interface failure Assessment & Plan Assessment & Plan (1) Nonischemic cardiomyopathy: Comment: 02/04/2023, LAD and left circumflex with minimal luminal irregularities, left main and RCA normal Code(s): I42.8 - Other cardiomyopathies Plan: History of cardiomyopathy. Previously followed by [facility]. Prior echoes with EF as low as 25-30%. Prior echo at [facility] 07/02/20 showed EF 45- 50%. Repeat echo done 11/17/2022 showed EF 32%. He has been on medications for neurohormonal modulation including metoprolol XL and lisinopril. He has chronic shortness of breath related to COPD and is O2 dependent. On examination he does not appear fluid overloaded. He did undergo a cardiac catheterization on 02/04/23 which showed only minimal luminal irregularities of the LAD and left circumflex. His cardiomyopathy is nonischemic. A repeat limited echo done on 04/19/2023 showed EF 45-50%. He has a pacemaker in place. Upgrade to SENIOR INFORMATICA ETL DEVELOPER/SENIOR INFORMATICA ETL DEVELOPER D not indicated at this time. Vital signs are well optimized on current med management. Will continue with meds without change. He tells me that he does drink alcohol at times and continues to smoke half a pack of cigarettes daily. Instructed on reduction/sensation of alcohol use and cigarette use. Signs and symptoms of heart failure reviewed with him. He has torsemide to use as needed, no recent use required. Cardiology follow-up 6 months, sooner if needed (2) S/P cardiac catheterization: Comment: 02/04/2023 lad and left circumflex minimal luminal irregularity Code(s): Z98.890 - Other specified postprocedural states Plan: As above (3) Pacemaker: Onset Date: ~06/2020 Comment: (Biotronik DCPP - placed 07/01/2020) Code(s): Z95.0 - Presence of cardiac pacemaker Plan: Biotronik dual-chamber pacemaker. Office interrogation done last visit, . Rep is coming next week for office interrogations and patient states he is not able to attend. Will continue with remote monitoring and have office device check at next visit in 6 months unless remote monitoring indicates that sooner office check is needed. (4) Paroxysmal atrial fibrillation: Code(s): I48.0 - Paroxysmal atrial fibrillation Plan: History of paroxysmal atrial fibrillation with ablation 2018. No reports of heart palpitations. He is on metoprolol XL for heart rate control. He is on Coumadin for anticoagulation. He follows with the [facility] anticoagulation Clinic. INR goal 2-3. No bleeding issues reported (5) Personal history of nicotine dependence: Comment: (current smoker - onset 18yo, 1-1.5ppd x 53yrs, 65pyh - now 1-2 cig/day) Patient is participating in annual lung screening program. Once again counseled very strongly to quit smoking completely. Code(s): Z87.891 - Personal history of nicotine dependence Plan: As above (6) COPD (chronic obstructive pulmonary disease): Comment: PATIENT HAS ADVANCED CHRONIC OBSTRUCTIVE PULMONARY DISEASE. CLINICALLY HOLDING STABLE ON HIS CURRENT MEDICAL REGIMEN FOLLOWS: SYMBICORT 160-4.52 PUFFS B.I.D. IPRATROPIUM/ALBUTEROL SOLUTION IN UPDRAFTS Q.I.D. PROAIR 2 PUFFS Q 4-6 HOURS P.R.N. WHEN OUTDOORS Code(s): J44.9 - Chronic obstructive pulmonary disease, unspecified Qualifiers: COPD type: unspecified COPD Qualified Code(s): J44.9 - Chronic obstructive pulmonary disease, unspecified Plan: Follows with pulmonology Plan Time spent on chart review, documentation, interview and assessment Coding Level of Care Code Est Pt Level 4 (55873) Diagnoses Nonischemic cardiomyopathy I42.8 S/P cardiac catheterization Z98.890 Pacemaker Z95.0 Paroxysmal atrial fibrillation I48.0 Personal history of nicotine dependence Z87.891 Chronic obstructive pulmonary disease, unspecified COPD type J44.9 COPD type: unspecified COPD Time Spent (min) 28
== END 2023-06-03 13:22 | disposition home or self-care (01) ==
PROVIDERS: PCP Internal Medicine; Visit Provider Nurse Practitioner Family
DX: I42.8 Other cardiomyopathies (principal); Z98.890 Other specified postprocedural states; Z95.0 Presence of cardiac pacemaker; I48.0 Paroxysmal atrial fibrillation; Z87.891 Personal history of nicotine dependence; J44.9 Chronic obstructive pulmonary disease, unspecified
CPT/HCPCS: 99214

== ENCOUNTER 2023-06-03 13:30 | Outpatient (AMB) | payer MEDICARE, SELFPAY ==
--- NOTE | 2023-06-03 13:46 | MHC.OFFVISCO ---
Intake Intake Visit Reasons: Anticoagulation Allergies No Known Allergies [No Known Allergies*] Allergy (Verified 06/03/23 13:34) Medication List - Last Reconciled 06/03/23 by Jerilyn Galicia RN albuterol sulfate 2.5 mg (3 mL) inhalation Q4-6H PRN albuterol sulfate 90 mcg/actuation (ProAir HFA) 2 puffs inhalation Q4-6H PRN 90 days azelastine intranasal ipratropium-albuterol 0.5 mg-3 mg(2.5 mg base)/3 mL 3 mL inhalation QID 90 days lisinopril 2.5 mg (1/2 x 5 mg) PO DAILY metoprolol succinate ER 100 mg (2 x 50 mg) PO DAILY multivitamin (Daily Multi-Vitamin tablet) 1 tab PO DAILY nebulizers To use every 4 hours Oxygen Home Use As directed spironolactone 12.5 mg (1/2 x 25 mg) PO DAILY Symbicort 160-4.5 mcg/actuation (budesonide-formoterol) 2 puffs PO BID NS torsemide 60 mg PO ONCE PRN warfarin 5 mg See Protocol PO DAILY Nursing Note Amb to [facility], using cont O2, sts his walker wasn't in car, declines offer for WC to exit hospital, ALEXIS/COPD Medications and supplements reviewed No changes in health, diet, medications, or supplements Denies any unusual signs and symptoms of bruising, bleeding Denies any new Chest pain, SOB, or clotting INR: 2.1 now in therapeutic range Nutritional guidance given: balance greens and reds in diet, be consistent Dose: continue usual dosing; 2.5mg x 2 days and 5mg x 7 days F/U INR: 4 weeks as per pt req Patient verbalizes understanding of instructions given with accurate read back/ teach back of dosing Anti-Coag Initial Assessment Social Hx Patient Tobacco Use Status: Current everyday Tobacco user Tobacco use type: Cigarette Smoking packs per day: 0.5 alcohol intake: current Alcohol intake frequency: other Cardiovascular Hx: HTN, CHF, Arrhythmias and Other Lung Disease HX: COPD and Other Blood Disorder Hx: Anemia GI Hx: Diverticulosis Neurological Hx: Other Cancer HX: No Psych. Illness/Depression: No Questionnaires HAS-BLED Does the patient had uncontrolled Hypertension?: No Does the patient have renal disease?: No Does the patient have liver disease?: No Does the patient have a history of stroke?: No Has the patient had major bleeding or predisposition to bleeding?: No Does the patient have labile INRs?: No Is the patient over 65 years of age?: Yes Is the patient on medications that gives them a predisposition to bleeding?: Yes Does the patient use alcohol?: Yes HAS-BLED Score: 3 CHADSVASC Age: 66-74 Gender: Male Does the patient have a history of CHF?: Yes Does the patient have a history of Hypertension?: Yes Does the patient have a history of Stroke/TIA/Thromboembolism?: No Does the patient have a history of Vascular Disease (prior [place], PAD or aortic plaque)?: No Does the patient have a history of Diabetes?: No CHADS VACS Score: 3 Destiney Prediction Score Rsk VTE Active Cancer: No Previous VTE, excluding superficial vein thrombosis: No Reduced mobility: Yes Already known Thrombophilic Condition: Yes With-in last month Trauma and/or Surgery: No Elderly 70 year or older: Yes Heart and/or Respiratory Failure: Yes Acute Myocardial infarction and/or Ischemic Stroke: No Acute Infection and/or Rheumatologic Disorder: No Obesity (BMI 30 or greater): No Ongoing Hormonal Treatment: No Score: 8 Destiney Score less than 4; Low Risk of VTE Destiney Score 4 or greater; High Risk of VTE Coding Level of Care Code Est Patient Level 1 Diagnoses Current use of anticoagulant therapy Z79.01 Time Spent (min) 15 Results AMB INR Fingerstick AMB INR Fingerstick 2.1 Last Edit by Jerilyn Galicia RN on 06/03/23 13:45 interface failure Assessment & Plan Assessment & Plan (1) Current use of anticoagulant therapy: Code(s): Z79.01 - nursing home (current) use of anticoagulants Category: Medical
[2023-06-04 13:35] LABS: Prothrombin Time Whole Bld POC 24.9 sec (11.1-13.5); ~PT, ~INR - Anti Coag Clinic 2.1 (0.9-1.1)
== END 2023-06-03 13:53 | disposition home or self-care (01) ==
LOC: HO.ACS 13:30
PROVIDERS: PCP Internal Medicine; Visit Provider Internal Medicine
DX: Z79.01 Long term (current) use of anticoagulants (principal)

== ENCOUNTER 2023-06-28 08:44 | Outpatient (AMB) | payer MEDICARE, SELFPAY ==
[2023-06-28 08:51] VITALS: BP 100/60; PULSE 105; O2SAT 96; BMI 30.6
--- NOTE | 2023-06-28 08:51 | A.OFFPC_ITS ---
Vital Signs 06/28/23 08:51 Height 5 ft 8 in Weight 201 lb BMI 30.6 BP 100/60 Blood Pressure Location Lt brachial Position Sitting Pulse 105 H Pulse Source Pulse Oximeter Pulse Oximetry (%) 96 Oxygen Delivery Method Nasal Cannula Intake Visit Reasons: Discuss Specialist Referral Matcher Required: No Electrolytic Etcher: Not Required per policy Accompanied by: Self / Same As Patient Allergies No Known Allergies [No Known Allergies*] Allergy (Verified 06/28/23 08:52) Medication List - Last Reconciled 06/28/23 by Charbel Poe MD albuterol sulfate 2.5 mg (3 mL) inhalation Q4-6H PRN albuterol sulfate 90 mcg/actuation (ProAir HFA) 2 puffs inhalation Q4-6H PRN 90 days azelastine intranasal ipratropium-albuterol 0.5 mg-3 mg(2.5 mg base)/3 mL 3 mL inhalation QID 90 days lisinopril 2.5 mg (1/2 x 5 mg) PO DAILY metoprolol succinate ER 100 mg (2 x 50 mg) PO DAILY multivitamin (Daily Multi-Vitamin tablet) 1 tab PO DAILY nebulizers To use every 4 hours Oxygen Home Use As directed spironolactone 12.5 mg (1/2 x 25 mg) PO DAILY Symbicort 160-4.5 mcg/actuation (budesonide-formoterol) 2 puffs PO BID NS torsemide 60 mg PO ONCE PRN warfarin 5 mg See Protocol PO DAILY Tobacco use date assessed: 06/28/23 Fall risk assessment: No Falls in past year Last assessed Fall Risk: 06/28/23 Dental Screening Dental Screen Date: 06/28/23 Did you have a dental visit in the last 12 months?: Yes Did you have a dental problem in the last 6 months where you did not have access to dental care?: No Was dental information given to patient?: Patient has dentist HPI Discuss Specialist Referral HPI Details Afib copd and cardiomyopathy; sees cardiology and pulmonary PFSH Medical History Personal history of nicotine dependence Hypertension 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 Mother No problems noted. Brother Esophageal cancer Social History Household Members: Children [facility] Do you presently have visiting nurse or other home services: Yes ([facility]) Alcohol intake: current Alcohol intake frequency: other Comment: no telesitter available at this time Patient Tobacco Use Status: Current everyday Tobacco user Tobacco use type: Cigarette Cigarette Packs Per Day: 0.5 Cigarettes Per Day: 1 Years Smoked: (onset 18yo, 1-1.5ppd x 53yrs, 65pyh - now 1cig/day) e-Cigarette/Vaping Use: Never Used Second Hand Smoke Exposure: Yes Advance Directives Date on File: 07/01/20 service: No Current occupational status: retired Current occupation: RETIRED Current occupational exposures/hazards: No Cognitive needs: No Hearing needs: No Vision needs: No Questionnaire PHQ-9 Over the last 2 weeks, how often have you been bothered by any of the following problems? 1. Little interest or pleasure in doing things: not at all 2. Feeling down, depressed, or hopeless: not at all 3. Trouble falling or staying asleep, or sleeping too much: not at all 4. Feeling tired or having little energy: not at all 5. Poor appetite or overeating: not at all 6. Feeling bad about yourself - or that you are a failure or have let yourself or your family down: not at all 7. Trouble concentrating on things, such as reading the newspaper or watching television: not at all 8. Moving or speaking so slowly that other people could have noticed. Or the opposite - being so fidgety or restless that you have been moving around a lot more than usual: not at all 9. Thoughts that you would be better off or of hurting yourself in some way: not at all Total score: 0 Depression Screening Interpretation: Negative Depression Screening Done: Yes 79680 - PHQ-9 Billing: Yes Source: Developed by Drs. Paramjit Wade, Max Brooks and colleagues, with an educational seble from [employer]. Thrive Questionnaire Date Thrive assessed: 06/28/23 I am a: Patient What is your living situation today?: I have a steady place to live Within the past 12 months, did the food you bought not last and you didn't have the money to get more?: Never true Within the past 12 months, did you worry whether your food would run out before you got money to buy more?: Never true Do you have trouble paying for medicines?: No Do you have trouble getting transportation to medical appointments?: No Do you have trouble paying your heating and electricity bill?: No Do you have trouble taking care of your child, family member or friend?: No Do you have trouble with day-to-day activities such as bathing, preparing meals, shopping, managing finances, etc.?: No Are you currently unemployed and looking for a job?: No Are you interested in more education?: No Please select the resources that you would like help with: None AUDIT C Alcohol Use Questionnaire (AUDIT-C) 1. How often do you have a drink containing alcohol?: Never Total Score: 0 Score Reviewed/Action Taken: Yes ALEJO-7 AMB Questionnaire ALEJO-7 Date ALEJO - 7 assessed: 06/28/23 Feeling nervous, anxious, or on edge: 0 = Not at all Not being able to stop or control worryin = Not at all Worrying too much about different things: 0 = Not at all Trouble relaxin = Not at all Being so restless that it is hard to sit still: 0 = Not at all Becoming easily annoyed or irritable: 0 = Not at all Feeling afraid as if something awful might happen: 0 = Not at all Total ALEJO-7 score (0-4 normal; 5-9 mild; 10-14 moderate; 15-21 severe): 0 Source: Developed by Drs. Paramjit Wade, Max Brooks and colleagues, with an educational sbele from [employer]. ALEJO-7 Assessment Billing ALEJO-7 Assessment Tool: ALEJO-7 Assessment 47602 Review of Systems Const Denies chills, Denies headache(s) and Denies weight loss ENT Denies headache(s) Card Denies chest pain, Denies syncope, Denies irregular heart rhythm and Denies dyspnea Resp Denies chest congestion, Denies cough and Denies dyspnea GI Denies abdominal pain, Denies change in stool character, Denies nausea and Denies vomiting Musc Denies deformity and Denies joint swelling Neuro Denies syncope and Denies headache(s) Physical exam (Primary Care) Vital Signs: Last Vital Signs Pulse 105 H 06/28/23 08:51 BP 100/60 06/28/23 08:51 Pulse Ox 96 06/28/23 08:51 Oxygen Delivery Method Nasal Cannula 06/28/23 08:51 BMI result Body Mass Index 30.6 Tobacco/Smoking Status: Tobacco use Status Tobacco use date assessed 06/28/23 06/28/23 08:58 Patient Tobacco Use Status Current everyday Tobacco 06/28/23 08:58 Tobacco use type Cigarette 06/28/23 08:58 e-Cigarette/Vaping Use Never Used 06/28/23 08:58 PHQ-9: PHQ-9 Score PHQ-9: Total score 0 06/28/23 08:58 Depression Screening Interpretation: Negative Thrive Assessment: Date of Thrive Assessment Date Thrive assessed 06/28/23 06/28/23 08:58 Const General: cooperative, comfortable, no acute distress and alert Neck Neck: Yes no lymphadenopathy Thyroid: Thyroid normal Resp Effort & Inspection: normal respiratory effort Auscultation: clear to auscultation bilaterally Percussion: percussion normal Cardio Jugular venous distension: no JVD Palpation: normal PMI Rate: regular rate Rhythm: regular rhythm Heart sounds: S1 normal heart sound present and S2 normal heart sound present GI Inspection: Yes normal to inspection Palpation (GI): No hepatosplenomegaly present Skin General skin exam: no rashes or lesions noted Extrem General: Yes no clubbing, cyanosis or edema Assessment and Plan Assessment & Plan (1) Nonischemic cardiomyopathy: Comment: 02/04/2023, LAD and left circumflex with minimal luminal irregularities, left main and RCA normal Code(s): I42.8 - Other cardiomyopathies Plan: per cardiology (2) Paroxysmal atrial fibrillation: Code(s): I48.0 - Paroxysmal atrial fibrillation Plan: remain on coumadin viaclinic (3) COPD (chronic obstructive pulmonary disease): Comment: PATIENT HAS ADVANCED CHRONIC OBSTRUCTIVE PULMONARY DISEASE. CLINICALLY HOLDING STABLE ON HIS CURRENT MEDICAL REGIMEN FOLLOWS: SYMBICORT 160-4.52 PUFFS B.I.D. IPRATROPIUM/ALBUTEROL SOLUTION IN UPDRAFTS Q.I.D. PROAIR 2 PUFFS Q 4-6 HOURS P.R.N. WHEN OUTDOORS Code(s): J44.9 - Chronic obstructive pulmonary disease, unspecified Qualifiers: COPD type: unspecified COPD Qualified Code(s): J44.9 - Chronic obstructive pulmonary disease, unspecified Plan: as per pulmonary Coding Level of Care Code Est Pt Level 4 (51225) Diagnoses Nonischemic cardiomyopathy I42.8 Paroxysmal atrial fibrillation I48.0 Chronic obstructive pulmonary disease, unspecified COPD type J44.9 COPD type: unspecified COPD Additional Codes ALEJO-7 Assessment Billing - ALEJO-7 Assessment Tool: ALEJO-7 Assessment 94328 ([id number])
== END 2023-06-28 09:43 | disposition home or self-care (01) ==
PROVIDERS: PCP Internal Medicine; Visit Provider Internal Medicine
DX: I42.8 Other cardiomyopathies (principal); I48.0 Paroxysmal atrial fibrillation; J44.9 Chronic obstructive pulmonary disease, unspecified
CPT/HCPCS: 99214

== ENCOUNTER 2023-07-01 13:00 | Outpatient (AMB) | payer MEDICARE, SELFPAY ==
[2023-07-01 13:07] LABS: ~PT, ~INR - Anti Coag Clinic 3.3 (0.9-1.1)
--- NOTE | 2023-07-01 13:11 | MHC.OFFVISCO ---
Intake Intake Visit Reasons: Anticoagulation Allergies No Known Allergies [No Known Allergies*] Allergy (Verified 07/01/23 13:01) Medication List - Last Reconciled 07/01/23 by Alem Baumann RN albuterol sulfate 2.5 mg (3 mL) inhalation Q4-6H PRN albuterol sulfate 90 mcg/actuation (ProAir HFA) 2 puffs inhalation Q4-6H PRN 90 days azelastine intranasal ipratropium-albuterol 0.5 mg-3 mg(2.5 mg base)/3 mL 3 mL inhalation QID 90 days lisinopril 2.5 mg (1/2 x 5 mg) PO DAILY metoprolol succinate ER 100 mg (2 x 50 mg) PO DAILY multivitamin (Daily Multi-Vitamin tablet) 1 tab PO DAILY nebulizers To use every 4 hours Oxygen Home Use As directed spironolactone 12.5 mg (1/2 x 25 mg) PO DAILY Symbicort 160-4.5 mcg/actuation (budesonide-formoterol) 2 puffs PO BID NS torsemide 60 mg PO ONCE PRN warfarin 5 mg See Protocol PO DAILY Nursing Note INR: 3.3 ALMOST therapeutic range Medications and supplements reviewed No changes in health, , medications, or supplements, HAS NOT BEEN EATING GREENS = HE WILL HAVE 1-2 / WEEK TO HAVE CT SCAN 08/04/23 REQUEST ACS VISIT SAME DAY Denies any signs and symptoms of bleeding or bruising or clotting. Bleeding, bruising, clotting discussed Nutritional guidance given- REVIEW FOOD LIST HAVE AT LEAST 1-2 GREENS / WEEK Dose: KEEP SAME 2.5MG X 2 DAYS / 5MG X 5 DAYS F/U INR: 1 MONTH Patient verbalizes understanding of instructions given Anti-Coag Initial Assessment Social Hx Patient Tobacco Use Status: Current everyday Tobacco user Tobacco use type: Cigarette Smoking packs per day: 0.5 alcohol intake: current Alcohol intake frequency: other Cardiovascular Hx: HTN, CHF, Arrhythmias and Other Lung Disease HX: COPD and Other Blood Disorder Hx: Anemia GI Hx: Diverticulosis Neurological Hx: Other Cancer HX: No Psych. Illness/Depression: No Coding Level of Care Code Est Patient Level 1 Diagnoses Current use of anticoagulant therapy Z79.01 Results AMB INR Fingerstick AMB INR Fingerstick 3.3 Last Edit by Alem Baumann RN on 07/01/23 13:08 INTERFACING DELAY ONGOING ONGOING ONGOING ONGOING ONGOING AMB INR Fingerstick AMB INR Fingerstick 3.0 Last Edit by Alem Baumann RN on 07/01/23 13:10 INTERACING !!!! AMB INR Fingerstick AMB INR Fingerstick 3.3 Last Edit by Alem Baumann RN on 07/01/23 13:13 INTERFACING Assessment & Plan Assessment & Plan (1) Current use of anticoagulant therapy: Code(s): Z79.01 - half-way (current) use of anticoagulants Category: Medical
== END 2023-07-01 13:16 | disposition home or self-care (01) ==
LOC: HO.ACS 13:00
PROVIDERS: PCP Internal Medicine; Visit Provider Internal Medicine
DX: Z79.01 Long term (current) use of anticoagulants (principal)

== ENCOUNTER → 2023-07-01 13:00 | Outpatient (BNVA) | payer MEDICARE, SELFPAY | PROVIDERS: PCP Internal Medicine; Visit Provider Internal Medicine | DX: I48.0 Paroxysmal atrial fibrillation (principal); Z79.01 Long term (current) use of anticoagulants; Z51.81 Encounter for therapeutic drug level monitoring | CPT/HCPCS: 85610; 99211 ==

== ENCOUNTER → 2023-07-12 23:59 | Outpatient (BNV) | payer MEDICARE, SELFPAY ==
--- NOTE | 2023-07-14 11:25 | A.OFFVIS_ITS ---
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 Mother No problems noted. Brother Esophageal cancer Social History Household Members: Children Housing: [facility] Do you presently have visiting nurse or other home services: Yes ([facility]) Alcohol intake: current Alcohol intake frequency: other Comment: no telesitter available at this time Patient Tobacco Use Status: Current everyday Tobacco user Tobacco use type: Cigarette Cigarette Packs Per Day: 0.5 Cigarettes Per Day: 5 Years Smoked: (onset 18yo, 1-1.5ppd x 53yrs, 65pyh - now 1cig/day) e-Cigarette/Vaping Use: Never Used Second Hand Smoke Exposure: Yes Advance Directives Date on File: 07/01/20 service: No Current occupational status: retired Current occupation: RETIRED Current occupational exposures/hazards: No Cognitive needs: No Hearing needs: No Vision needs: No Office Procedures Cardiac Device Check Cardiac Device Check Details: Date of service- 07/12/2023 ; Battery life 70%; normal lead parameters; AP 2%; 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 Overall normal device function. [id number] Cardiac Device Interrogation, pacemaker Procedure code (CPT) selection complete Assessment & Plan Assessment & Plan (1) Paroxysmal atrial fibrillation: Code(s): I48.0 - Paroxysmal atrial fibrillation Plan x Coding Level of Care Code Procedure Only Diagnoses Paroxysmal atrial fibrillation I48.0 CPT Codes Cardiac Device Check - Cardiac Device 12: [id number] Cardiac Device Interrogation, pacemaker ([id number])
== END ==
PROVIDERS: PCP Internal Medicine; Visit Provider Internal Medicine
DX: I48.0 Paroxysmal atrial fibrillation (principal); Z95.0 Presence of cardiac pacemaker
CPT/HCPCS: 93294

== ENCOUNTER 2023-07-13 10:46 | Outpatient (AMB) | payer MEDICARE, SELFPAY ==
--- NOTE | 2023-07-13 11:26 | A.OFFVIS_ITS ---
Intake Vital Signs 07/13/23 11:27 Height 5 ft 8 in Weight 202 lb 13.204 oz BMI 30.8 BP 112/60 Blood Pressure Location Lt brachial Position Sitting Pulse 82 Pulse Source Pulse Oximeter Pulse Oximetry (%) 96 Oxygen Delivery Method Nasal Cannula Oxygen Flow Rate 2 Intake Visit Reasons: COPD follow-up Intake Note: pt is here for follow up and states there is some coughing,wheezing but he is at the same as usual. 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 Allergies No Known Allergies [No Known Allergies*] Allergy (Verified 07/13/23 11:51) Medication List - Last Reconciled 07/13/23 by Rey August MD albuterol sulfate 2.5 mg (3 mL) inhalation Q4-6H PRN albuterol sulfate 90 mcg/actuation (ProAir HFA) 2 puffs inhalation Q4-6H PRN 90 days azelastine intranasal ipratropium-albuterol 0.5 mg-3 mg(2.5 mg base)/3 mL 3 mL inhalation QID 90 days lisinopril 2.5 mg (1/2 x 5 mg) PO DAILY metoprolol succinate ER 100 mg (2 x 50 mg) PO DAILY multivitamin (Daily Multi-Vitamin tablet) 1 tab PO DAILY nebulizers To use every 4 hours Oxygen Home Use As directed spironolactone 12.5 mg (1/2 x 25 mg) PO DAILY Symbicort 160-4.5 mcg/actuation (budesonide-formoterol) 2 puffs PO BID NS torsemide 60 mg PO ONCE PRN warfarin 5 mg See Protocol PO DAILY Do you need a note to return to daycare/school/sports/work: No HPI COPD follow-up HPI Details Mr. Sherman, 73 years old gentleman, is a case of advanced chronic obstructive pulmonary disease with hypoxemia. He is coming after 6 months for follow-up. Basically his condition has remained stable, without any acute exacerbation. However he has difficulty in walking around, he is somewhat short. Of breath even at rest He uses O2 2 L/minute. 24 hours a day Unfortunately still smoking about 5 cigarettes a day. He is participating in the annual lung screening program, last LDCT was in November 2022, he is scheduled to have another scan in July 2023. His locomotion is poor and he uses walker. He needs a handicap plaque for his car. 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 Mother No problems noted. Brother Esophageal cancer Social History Household Members: Children Housing: [facility] Do you presently have visiting nurse or other home services: Yes ([facility]) Alcohol intake: current Alcohol intake frequency: other Comment: no telesitter available at this time Patient Tobacco Use Status: Current everyday Tobacco user Tobacco use type: Cigarette Cigarette Packs Per Day: 0.5 Cigarettes Per Day: 5 Years Smoked: (onset 18yo, 1-1.5ppd x 53yrs, 65pyh - now 1cig/day) e-Cigarette/Vaping Use: Never Used Second Hand Smoke Exposure: Yes Advance Directives Date on File: 07/01/20 service: No Current occupational status: retired Current occupation: RETIRED Current occupational exposures/hazards: No Cognitive needs: No Hearing needs: No Vision needs: No Review of Systems Const All systems reviewed & are unremarkable except as noted in HPI and below Eyes Reports loss of vision (HE IS BLIND IN RIGHT EYE) ENT Reports no additional complaints Card Denies chest pain, Reports irregular heart rhythm (ATRIAL FIBRILLATION) and Denies leg edema Resp Reports as per HPI GI Reports no additional complaints Reports no additional complaints Musc Reports no additional complaints Skin/Breast Reports system reviewed and no additional complaints, except as documented Neuro Reports no additional complaints and Reports loss of vision (HE IS BLIND IN RIGHT EYE) Psych Reports no additional complaints Physical Exam Vital Signs: Last Vital Signs Pulse 82 07/13/23 11:27 BP 112/60 07/13/23 11:27 Pulse Ox 96 07/13/23 11:27 Oxygen Delivery Method Nasal Cannula 07/13/23 11:27 Oxygen Flow Rate 2 07/13/23 11:27 BMI result Body Mass Index 30.8 Const General: comfortable, no acute distress, alert and awake Orientation/consciousness: patient oriented x3 HEENT Head: Yes normal to inspection General nose exam: No nasal polyps present and No nasal discharge present Face and sinus: Yes sinuses nontender Mouth: oropharynx normal Throat: Yes posterior oropharynx normal Eyes General: appearance normal, both eyes and all related structures Visual Chapman: visual chapman abnormal by confrontation (Blind in right eye) Neck Neck: Yes normal visual inspection, Yes no lymphadenopathy, Yes trachea midline and Yes no JVD Thyroid: Thyroid normal Chest Chest palpation & inspection: normal inspection of the chest, normal palpation of entire chest wall and no tenderness Resp Other: Percussion note is hyper-resonant, breath sounds are very distant with prolonged expiratory phase. No wheezes or creps. are heard today . Cardio Palpation: normal PMI Rate: regular rate Rhythm: regular rhythm Heart sounds: no gallops and no murmurs GI Palpation (GI): Soft to palpation, nontender, No hepatosplenomegaly present and no masses Auscultation: normal bowel sounds Back/Spine/Pelvis Thoracic/Lumbar Spine: thoracic and lumbar spine normal to inspection Skin General skin exam: no rashes or lesions noted Neuro General: patient oriented x3 and no focal motor deficits Cranial nerves: Yes CN's II-XII intact bilaterally Extrem General: Yes normal to inspection, Yes no clubbing, cyanosis or edema and Yes no calf tenderness Psych Appearance: grossly normal and well kempt Speech and movement: Normal speech and movement present Assessment & Plan Assessment & Plan (1) COPD (chronic obstructive pulmonary disease): Comment: PATIENT HAS ADVANCED CHRONIC OBSTRUCTIVE PULMONARY DISEASE. FEV1=0.45 L FVC= 0.8 L 20 % of normal . CLINICALLY HOLDING STABLE ON HIS CURRENT MEDICAL REGIMEN FOLLOWS: SYMBICORT 160-4.52 PUFFS B.I.D. IPRATROPIUM/ALBUTEROL SOLUTION IN UPDRAFTS Q.I.D. PROAIR 2 PUFFS Q 4-6 HOURS P.R.N. WHEN OUTDOORS Code(s): J44.9 - Chronic obstructive pulmonary disease, unspecified Qualifiers: COPD type: unspecified COPD Qualified Code(s): J44.9 - Chronic obstructive pulmonary disease, unspecified Plan: Continue However as per insurance coverage, Symbicort would not be covered. I would order an equivalent agent,(WIXELA 500 MG B.I.D. ) (2) Exercise hypoxemia: Comment: (Exercise induced Hypoxemia - using portable O2) HE ALSO USES O2 P.R.N. AT HOME, BUT NOT AT NIGHT. Code(s): R09.02 - Hypoxemia Plan: ABOVE (3) Personal history of nicotine dependence: Comment: (current smoker - onset 18yo, 1-1.5ppd x 53yrs, 65pyh - now 1-2 cig/day) Patient is participating in annual lung screening program. Code(s): Z87.891 - Personal history of nicotine dependence Plan: Once again counseled very strongly to quit smoking completely. BUT HE IS NOT MOTIVATED TO STOP COMPLETELY. (4) Multiple pulmonary nodules: Comment: He has been a life long smoker ,has multiple pulmonary nodules for which he is getting annual low dose CT scan. Last CT Scan in November 2022 , shows increase in size of nodule in Rt. Lower Lobe ( G G density ) to 1 CM . IT WAS ADVISE THAT HE SHOULD GET A REPEAT LDCT AT A SHORTER INTERVAL. SO HE IS SCHEDULED TO HAVE THE CT SCAN IN JULY 2019 FOR. HE IS BEING FOLLOWED VERY CLOSELY BY OUR ANNUAL LUNG SCREENING PROGRAM. Code(s): R91.8 - Other nonspecific abnormal finding of lung field Plan: As above Coding Level of Care Code Est Pt Level 4 (46854) Diagnoses Chronic obstructive pulmonary disease, unspecified COPD type J44.9 COPD type: unspecified COPD Exercise hypoxemia R09.02 Personal history of nicotine dependence Z87.891 Multiple pulmonary nodules R91.8
[2023-07-13 11:27] VITALS: BP 112/60; PULSE 82; O2SAT 96; BMI 30.8
== END 2023-07-13 11:52 | disposition home or self-care (01) ==
PROVIDERS: PCP Internal Medicine; Visit Provider Internal Medicine
DX: J44.9 Chronic obstructive pulmonary disease, unspecified (principal); R09.02 Hypoxemia; Z87.891 Personal history of nicotine dependence; R91.8 Other nonspecific abnormal finding of lung field
CPT/HCPCS: 99214

== ENCOUNTER → 2023-07-13 10:46 | Outpatient (BNVA) | payer MEDICARE, SELFPAY | PROVIDERS: PCP Internal Medicine; Visit Provider Internal Medicine | DX: J44.9 Chronic obstructive pulmonary disease, unspecified (principal); R09.02 Hypoxemia; R91.8 Other nonspecific abnormal finding of lung field; Z87.891 Personal history of nicotine dependence | CPT/HCPCS: 99212 ==

== ENCOUNTER 2023-08-04 14:28 | Outpatient (AMB) | payer MEDICARE, SELFPAY ==
[2023-08-04 14:36] LABS: Prothrombin Time Whole Bld POC 24.4 sec (11.1-13.5)
--- NOTE | 2023-08-04 14:54 | MHC.OFFVISCO ---
Intake Intake Visit Reasons: Anticoagulation Allergies No Known Allergies [No Known Allergies*] Allergy (Verified 08/04/23 14:30) Medication List - Last Reconciled 08/04/23 by Clarisse Enrique RN albuterol sulfate 2.5 mg (3 mL) inhalation Q4-6H PRN albuterol sulfate 90 mcg/actuation (ProAir HFA) 2 puffs inhalation Q4-6H PRN 90 days azelastine intranasal ipratropium-albuterol 0.5 mg-3 mg(2.5 mg base)/3 mL 3 mL inhalation QID 90 days lisinopril 2.5 mg (1/2 x 5 mg) PO DAILY metoprolol succinate ER 100 mg (2 x 50 mg) PO DAILY multivitamin (Daily Multi-Vitamin tablet) 1 tab PO DAILY nebulizers To use every 4 hours Oxygen Home Use As directed spironolactone 12.5 mg (1/2 x 25 mg) PO DAILY Symbicort 160-4.5 mcg/actuation (budesonide-formoterol) 2 puffs PO BID NS torsemide 60 mg PO ONCE PRN warfarin 5 mg See Protocol PO DAILY Nursing Note NO CP,SOB,DIET/MED CHANGES,FALLS OR SX OF BLEEDING. PT.STATES THAT HE HAS FREQ.[place] DUE TO MEALS ON WHEELS. WILL INCREASE WEEKLY WARFARIN DOSE DLIGHTLY AND FOLLOW-UP IN 4 WEEKS. GOOD UNDERSTANDING VERB. DIET REVIEWED IN DETAIL. WILL AVOID [place] 1-2 DAYSA Anti-Coag Initial Assessment Social Hx Patient Tobacco Use Status: Current everyday Tobacco user Tobacco use type: Cigarette Smoking packs per day: 0.5 alcohol intake: current Alcohol intake frequency: other Cardiovascular Hx: HTN, CHF, Arrhythmias and Other Lung Disease HX: COPD and Other Blood Disorder Hx: Anemia GI Hx: Diverticulosis Neurological Hx: Other Cancer HX: No Psych. Illness/Depression: No Coding Level of Care Code Est Patient Level 1 Diagnoses Current use of anticoagulant therapy Z79.01 Assessment & Plan Assessment & Plan (1) Current use of anticoagulant therapy: Code(s): Z79.01 - senior care (current) use of anticoagulants Category: Medical
== END 2023-08-04 14:56 | disposition home or self-care (01) ==
LOC: HO.ACS 14:28
PROVIDERS: PCP Internal Medicine; Visit Provider Internal Medicine
DX: Z79.01 Long term (current) use of anticoagulants (principal)

== ENCOUNTER 2023-08-04 15:03 | Outpatient (REF) | payer MEDICARE, SELFPAY ==
--- NOTE | ~2023-08-04 | CT_ITS ---
EXAMINATION: CT CHEST SCREENING CLINICAL INFORMATION: Chronic smoker; 50 pack-year smoking history. COMPARISON: Prior CT examinations of the chest, most recently 12/10/2022. TECHNIQUE: Multidetector volumetric CT imaging of the chest is performed without contrast using low dose technique. Additional 2D coronal and sagittal reformatted images and axial 3D maximum intensity projection (MIP) images are generated on the CT workstation. This CT examination was performed using dose optimization techniques as appropriate, variously including the following: *Automated exposure control *Adjustment of mA and/or kV according to patient size (this includes techniques or standardized protocols for targeted exams where dose is matched to indication/reason for exam; i.e. extremities or head) *Use of iterative reconstruction technique DLP: 70 mGy-cm FINDINGS: LUNGS: There are a few small benign, calcified granulomas seen within the superior segment of the right lower lobe (5:218-20). At the posterior right base (5:347), a 3 mm noncalcified nodule is seen. This measured 4 mm on 12/07/2022 (5:376). Posterior right base tree-in-bud nodularity is overall diminished in the interim. There are multiple small scattered peribronchial opacities with adjacent bronchiolar wall thickening within the right upper and lower lobes. There is adjacent bronchial wall thickening within the right middle lobe. This is increased from 12/07/2022. There are scattered foci of pleural and parenchymal lower scarring seen laterally within the mid and lower right lung. There is no associated focal airway obstruction. There are mild to moderate centrilobular and paraseptal emphysematous changes. The central airways appear patent. MEDIASTINUM: The thyroid is unremarkable. There is no thoracic aortic aneurysm. There are mild atherosclerotic calcifications of the great vessel origins and thoracic aorta. No mediastinal or hilar lymphadenopathy is seen. Pacemaker leads are noted. CORONARY ARTERY CALCIFICATION: Mild. PLEURA: There is no pleural effusion. No pleural mass or thickening. AXILLA: No lymphadenopathy. There is moderate gynecomastia. UPPER ABDOMEN: Unremarkable OSSEOUS STRUCTURES: There is multi-level mild thoracic spondylosis. No acute or aggressive osseous finding is noted. CT/CT lung screen follow up IMPRESSION: 1. There is interim decrease in number of previously noted posterior right base tree-in-bud nodules, with a diminished 3 mm residual nodule noted. No new nodule is appreciated. 2. There are scattered foci of peribronchial infiltrates and adjacent bronchiolar wall thickening, most pronounced within the right upper and lower lobes. This has increased in the interim. These are likely infectious or inflammatory in etiology. Recommend clinical correlation. Consider further CT imaging to clearance. 3. There are mild to moderate centrilobular and paraseptal emphysematous changes. 4. There are scattered foci of minor scar/subsegmental atelectasis seen laterally within the mid and lower lung, without associated focal airway obstruction. 5. No thoracic lymphadenopathy or pleural effusion is seen. 6. No acute or aggressive osseous finding is noted. 7. There is moderate gynecomastia. ASSESSMENT: Lung-RADS category 2: Benign RECOMMENDATION: Routine annual low-dose CT screening in 12 months.
== END 2023-08-04 15:04 | disposition home or self-care (01) ==
LOC: HO.CT 15:03
PROVIDERS: PCP Internal Medicine; Visit Provider Nurse Practitioner Family
DX: R91.8 Other nonspecific abnormal finding of lung field (principal); Z12.5 Encounter for screening for malignant neoplasm of prostate
CPT/HCPCS: 71250; 85610; 99211

== ENCOUNTER 2023-08-16 13:56 | Outpatient (AMB) | payer MEDICARE, SELFPAY ==
--- NOTE | 2023-08-16 14:01 | MHC.OFFVIS ---
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 Mother No problems noted. Brother Esophageal cancer Social History Household Members: Children [facility]: [facility] Do you presently have visiting nurse or other home services: Yes ([facility]) Alcohol intake: current Alcohol intake frequency: other Comment: no telesitter available at this time Patient Tobacco Use Status: Current everyday Tobacco user Tobacco use type: Cigarette Cigarette Packs Per Day: 0.5 Cigarettes Per Day: 5 Years Smoked: (onset 18yo, 1-1.5ppd x 53yrs, 65pyh - now 1cig/day) e-Cigarette/Vaping Use: Never Used Second Hand Smoke Exposure: Yes Advance Directives Date on File: 07/01/20 service: No Current occupational status: retired Current occupation: RETIRED Current occupational exposures/hazards: No Cognitive needs: No Hearing needs: No Vision needs: No Physical Exam Vital Signs: Last Vital Signs Pulse 90 08/16/23 14:04 Resp 14 08/16/23 14:04 BP 116/60 08/16/23 14:04 Pulse Ox 94 08/16/23 14:04 Oxygen Delivery Method Room Air 08/16/23 14:04 BMI result Body Mass Index 30.0 Results Reviewed Results Reviewed: LDCT Date of Service: 08/04/23 Procedure(s): CT lung screen follow up Accession Number(s): [id number] cc: Charbel Poe MD; Mary Pang NP~ 1. There is interim decrease in number of previously noted posterior right base tree-in-bud nodules, with a diminished 3 mm residual nodule noted. No new nodule is appreciated. 2. There are scattered foci of peribronchial infiltrates and adjacent bronchiolar wall thickening, most pronounced within the right upper and lower lobes. This has increased in the interim. These are likely infectious or inflammatory in etiology. Recommend clinical correlation. Consider further CT imaging to clearance. 3. There are mild to moderate centrilobular and paraseptal emphysematous changes. 4. There are scattered foci of minor scar/subsegmental atelectasis seen laterally within the mid and lower lung, without associated focal airway obstruction. 5. No thoracic lymphadenopathy or pleural effusion is seen. 6. No acute or aggressive osseous finding is noted. 7. There is moderate gynecomastia. ASSESSMENT: Lung-RADS category 2: Benign Coding
[2023-08-16 14:04] VITALS: BP 116/60; PULSE 90; RESP 14; O2SAT 94
--- NOTE | 2023-08-16 14:26 | A.OFFVIS_ITS ---
Intake Vital Signs 08/16/23 14:04 Height 5 ft 8 in Weight 197 lb 4 oz BMI 30.0 BP 116/60 Blood Pressure Location Lt brachial Position Sitting Respiration 14 Pulse 90 Pulse Source Pulse Oximeter Pulse Oximetry (%) 94 Oxygen Delivery Method Room Air Intake Visit Reasons: Follow up on results of LDCT Allergies No Known Allergies [No Known Allergies*] Allergy (Verified 08/16/23 14:26) Medication List - Last Reconciled 08/16/23 by Rey August MD albuterol sulfate 2.5 mg (3 mL) inhalation Q4-6H PRN albuterol sulfate 90 mcg/actuation (ProAir HFA) 2 puffs inhalation Q4-6H PRN 90 days azelastine intranasal ipratropium-albuterol 0.5 mg-3 mg(2.5 mg base)/3 mL 3 mL inhalation QID 90 days lisinopril 2.5 mg (1/2 x 5 mg) PO DAILY metoprolol succinate ER 100 mg (2 x 50 mg) PO DAILY multivitamin (Daily Multi-Vitamin tablet) 1 tab PO DAILY nebulizers To use every 4 hours Oxygen Home Use As directed spironolactone 12.5 mg (1/2 x 25 mg) PO DAILY Symbicort 160-4.5 mcg/actuation (budesonide-formoterol) 2 puffs PO BID NS torsemide 60 mg PO ONCE PRN warfarin 5 mg See Protocol PO DAILY Do you need a note to return to daycare/school/sports/work: No HPI Follow up on results of LDCT HPI Details THIS 73 YEARS OLD GENTLEMAN WITH ONGOING SMOKING AND ADVANCED OBSTRUCTIVE AIRWAY DISORDER, COMES FOR AN URGENT VISIT BECAUSE OF ABNORMAL FINDINGS ON HIS RECENT LDCT. HE CONTINUES TO BE SHORT OF BREATH ON MINIMAL EXERTION. HE DOES HAVE FREQUENT COUGH WITH SOME EXPECTORATION. HE WALKS WITH A WALKER AND GETS OUT OF BREATH VERY QUICKLY. HE IS USING HIS MEDICATIONS REGULARLY. UNFORTUNATELY HE STILL SMOKING AND HAS GONE UP TO HALF PACK OF CIGARETTES A DAY. THE LDCT. SHOWS THE PULMONARY NODULES UNCHANGED, BUT HE HAS SIGNIFICANT BRONCHIAL WALL THICKENING WITH PERIBRONCHIAL INFILTRATES. FOR THIS REASON HE WAS TOLD TO SEE ME RELATIVELY QUICKLY. 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 Mother No problems noted. Brother Esophageal cancer Social History Household Members: Children [facility] Do you presently have visiting nurse or other home services: Yes ([facility]) Alcohol intake: current Alcohol intake frequency: other Comment: no telesitter available at this time Patient Tobacco Use Status: Current everyday Tobacco user Tobacco use type: Cigarette Cigarette Packs Per Day: 0.5 Cigarettes Per Day: 5 Years Smoked: (onset 18yo, 1-1.5ppd x 53yrs, 65pyh - now 1cig/day) e-Cigarette/Vaping Use: Never Used Second Hand Smoke Exposure: Yes Advance Directives Date on File: 07/01/20 service: No Current occupational status: retired Current occupation: RETIRED Current occupational exposures/hazards: No Cognitive needs: No Hearing needs: No Vision needs: No Review of Systems Const All systems reviewed & are unremarkable except as noted in HPI and below Eyes Reports loss of vision (HE IS BLIND IN RIGHT EYE) ENT Reports no additional complaints Card Denies chest pain, Reports irregular heart rhythm (ATRIAL FIBRILLATION) and Denies leg edema Resp Reports as per HPI GI Reports no additional complaints Reports no additional complaints Musc Reports no additional complaints Skin/Breast Reports system reviewed and no additional complaints, except as documented Neuro Reports no additional complaints and Reports loss of vision (HE IS BLIND IN RIGHT EYE) Psych Reports no additional complaints Physical Exam Vital Signs: Last Vital Signs Pulse 90 08/16/23 14:04 Resp 14 08/16/23 14:04 BP 116/60 08/16/23 14:04 Pulse Ox 94 08/16/23 14:04 Oxygen Delivery Method Room Air 08/16/23 14:04 BMI result Body Mass Index 30.0 Const General: comfortable, no acute distress, alert and awake Orientation/consciousness: patient oriented x3 HEENT Head: Yes normal to inspection General nose exam: No nasal polyps present and No nasal discharge present Face and sinus: Yes sinuses nontender Mouth: oropharynx normal Throat: Yes posterior oropharynx normal Eyes General: appearance normal, both eyes and all related structures Visual Kaplan: visual kaplan abnormal by confrontation (Blind in right eye) Neck Neck: Yes normal visual inspection, Yes no lymphadenopathy, Yes trachea midline and Yes no JVD Thyroid: Thyroid normal Chest Chest palpation & inspection: normal inspection of the chest, normal palpation of entire chest wall and no tenderness Resp Other: Percussion note is hyper-resonant, breath sounds are very distant with prolonged expiratory phase. No wheezes or creps. are heard today . Cardio Palpation: normal PMI Rate: regular rate Rhythm: regular rhythm Heart sounds: no gallops and no murmurs GI Palpation (GI): Soft to palpation, nontender, No hepatosplenomegaly present and no masses Auscultation: normal bowel sounds Back/Spine/Pelvis Thoracic/Lumbar Spine: thoracic and lumbar spine normal to inspection Skin General skin exam: no rashes or lesions noted Neuro General: patient oriented x3 and no focal motor deficits Cranial nerves: Yes CN's II-XII intact bilaterally Extrem General: Yes normal to inspection, Yes no clubbing, cyanosis or edema and Yes no calf tenderness Psych Appearance: grossly normal and well kempt Speech and movement: Normal speech and movement present Results Reviewed Results Reviewed: LDCT chest 08/07/2023 CT/CT lung screen follow up IMPRESSION: 1. There is interim decrease in number of previously noted posterior right base tree-in-bud nodules, with a diminished 3 mm residual nodule noted. No new nodule is appreciated. 2. There are scattered foci of peribronchial infiltrates and adjacent bronchiolar wall thickening, most pronounced within the right upper and lower lobes. This has increased in the interim. These are likely infectious or inflammatory in etiology. Recommend clinical correlation. Consider further CT imaging to clearance. 3. There are mild to moderate centrilobular and paraseptal emphysematous changes. 4. There are scattered foci of minor scar/subsegmental atelectasis seen laterally within the mid and lower lung, without associated focal airway obstruction. 5. No thoracic lymphadenopathy or pleural effusion is seen. 6. No acute or aggressive osseous finding is noted. 7. There is moderate gynecomastia. ASSESSMENT: Lung-RADS category 2: Benign Assessment & Plan Assessment & Plan (1) Personal history of nicotine dependence: Comment: (current smoker - onset 18yo, 1-1.5ppd x 53yrs, 65pyh - now half pack a day . Patient is participating in annual lung screening program. Code(s): Z87.891 - Personal history of nicotine dependence Plan: Had a long discussion and I showed him my. concerns for his ongoing smoking He has advanced chronic obstructive pulmonary disease as well as pulmonary. Nodules It is very important for him. To quit smoking I suggested THAT HE SHOULD GO ON NICOTINE PATCH PROGRAM AND TRY TO QUIT SMOKING SOON POSSIBLE. (2) COPD (chronic obstructive pulmonary disease): Comment: PATIENT HAS ADVANCED CHRONIC OBSTRUCTIVE PULMONARY DISEASE. FEV1=0.45 L FVC= 0.8 L 20 % of normal . CLINICALLY HOLDING STABLE ON HIS CURRENT MEDICAL REGIMEN FOLLOWS: SYMBICORT 160-4.52 PUFFS B.I.D. IPRATROPIUM/ALBUTEROL SOLUTION IN UPDRAFTS Q.I.D. PROAIR 2 PUFFS Q 4-6 HOURS P.R.N. WHEN OUTDOORS DOXYCYCLINE 100 B.I.D. FOR 10 DAYS IS PRESCRIBED FOR POSSIBLE PERIBRONCHIAL INFECTION. Code(s): J44.9 - Chronic obstructive pulmonary disease, unspecified Qualifiers: COPD type: unspecified COPD Qualified Code(s): J44.9 - Chronic obstructive pulmonary disease, unspecified (3) Exercise hypoxemia: Comment: (Exercise induced Hypoxemia - using portable O2) HE ALSO USES O2 P.R.N. AT HOME, BUT NOT AT NIGHT. Code(s): R09.02 - Hypoxemia Plan: ABOVE (4) Multiple pulmonary nodules: Comment: He has been a life long smoker ,has multiple pulmonary nodules for which he is getting annual low dose CT scan. Last CT Scan in November 2022 , shows increase in size of nodule in Rt. Lower Lobe ( G G density ) to 1 CM . IT WAS ADVISED THAT HE SHOULD GET A REPEAT LDCT AT A SHORTER INTERVAL. Code(s): R91.8 - Other nonspecific abnormal finding of lung field Plan: CONTINUE CLOSE FOLLOW-UP BY ANNUAL LUNG SCREENING TEAM Quality Reporting (2019) Adult ([facility] 138/2/22/69) Body Mass Index: 30.0 Coding Level of Care Code Est Pt Level 4 (56088) Diagnoses Personal history of nicotine dependence Z87.891 Chronic obstructive pulmonary disease, unspecified COPD type J44.9 COPD type: unspecified COPD Exercise hypoxemia R09.02 Multiple pulmonary nodules R91.8
--- NOTE | 2023-08-16 15:12 | A.OFFVIS_ITS ---
Intake Vital Signs 08/16/23 14:04 Height 5 ft 8 in Weight 197 lb 4 oz BMI 30.0 BP 116/60 Blood Pressure Location Lt brachial Position Sitting Respiration 14 Pulse 90 Pulse Source Pulse Oximeter Pulse Oximetry (%) 94 Oxygen Delivery Method Room Air Intake Visit Reasons: Follow up on results of LDCT Allergies No Known Allergies [No Known Allergies*] Allergy (Verified 08/16/23 14:26) Medication List - Last Reconciled 08/16/23 by Rey August MD albuterol sulfate 2.5 mg (3 mL) inhalation Q4-6H PRN albuterol sulfate 90 mcg/actuation (ProAir HFA) 2 puffs inhalation Q4-6H PRN 90 days azelastine intranasal ipratropium-albuterol 0.5 mg-3 mg(2.5 mg base)/3 mL 3 mL inhalation QID 90 days lisinopril 2.5 mg (1/2 x 5 mg) PO DAILY metoprolol succinate ER 100 mg (2 x 50 mg) PO DAILY multivitamin (Daily Multi-Vitamin tablet) 1 tab PO DAILY nebulizers To use every 4 hours Oxygen Home Use As directed spironolactone 12.5 mg (1/2 x 25 mg) PO DAILY Symbicort 160-4.5 mcg/actuation (budesonide-formoterol) 2 puffs PO BID NS torsemide 60 mg PO ONCE PRN warfarin 5 mg See Protocol PO DAILY HPI Follow up on results of LDCT HPI Details 73 YEARS OLD GENTLEMAN IS HERE, FOR AN U ENT VISIT. BECAUSE OF HIS RECENT LDCT, SHOWING PER SLEEP BRONCHIAL THICKENING WITH QUESTION OF PERIBRONCHIAL INFILTRATES, IN ADDITION TO MULTIPLE PULMONARY NODULES WHICH HAVE NOT CHANGED. HE DENIES FEVER OR CHILLS. HE DOES HAVE INCREASED COUGH, STILL SMOKING ABOUT HALF PACK OF CIGARETTES A DAY. HE IS USING O2 2 L/MINUTE, HE STILL GETS SHORT OF BREATH ON WALKING EVEN THOUGH HE USES A WALKER. HE CONTINUES TO HAVE MILD NASAL CONGESTION. 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 Mother No problems noted. Brother Esophageal cancer Social History [facility]hold Members: Children [facility] Do you presently have visiting nurse or other home services: Yes ([facility]) Alcohol intake: current Alcohol intake frequency: other Comment: no telesitter available at this time Patient Tobacco Use Status: Current everyday Tobacco user Tobacco use type: Cigarette Cigarette Packs Per Day: 0.5 Cigarettes Per Day: 5 Years Smoked: (onset 18yo, 1-1.5ppd x 53yrs, 65pyh - now 1cig/day) e-Cigarette/Vaping Use: Never Used Second Hand Smoke Exposure: Yes Advance Directives Date on File: 07/01/20 service: No Current occupational status: retired Current occupation: RETIRED Current occupational exposures/hazards: No Cognitive needs: No Hearing needs: No Vision needs: No Review of Systems Const All systems reviewed & are unremarkable except as noted in HPI and below Eyes Reports loss of vision (HE IS BLIND IN RIGHT EYE) ENT Reports no additional complaints Card Denies chest pain, Reports irregular heart rhythm (ATRIAL FIBRILLATION) and Denies leg edema Resp Reports as per HPI GI Reports no additional complaints Reports no additional complaints Musc Reports no additional complaints Skin/Breast Reports system reviewed and no additional complaints, except as documented Neuro Reports no additional complaints and Reports loss of vision (HE IS BLIND IN RIGHT EYE) Psych Reports no additional complaints Physical Exam Vital Signs: Last Vital Signs Pulse 90 08/16/23 14:04 Resp 14 08/16/23 14:04 BP 116/60 08/16/23 14:04 Pulse Ox 94 08/16/23 14:04 Oxygen Delivery Method Room Air 08/16/23 14:04 BMI result Body Mass Index 30.0 Const General: comfortable, no acute distress, alert and awake Orientation/consciousness: patient oriented x3 HEENT Head: Yes normal to inspection General nose exam: No nasal polyps present and No nasal discharge present Face and sinus: Yes sinuses nontender Mouth: oropharynx normal Throat: Yes posterior oropharynx normal Eyes General: appearance normal, both eyes and all related structures Visual Kaplan: visual kaplan abnormal by confrontation (Blind in right eye) Neck Neck: Yes normal visual inspection, Yes no lymphadenopathy, Yes trachea midline and Yes no JVD Thyroid: Thyroid normal Chest Chest palpation & inspection: normal inspection of the chest, normal palpation of entire chest wall and no tenderness Resp Other: Percussion note is hyper-resonant, breath sounds are very distant with prolonged expiratory phase. No wheezes or creps. are heard today . Cardio Palpation: normal PMI Rate: regular rate Rhythm: regular rhythm Heart sounds: no gallops and no murmurs GI Palpation (GI): Soft to palpation, nontender, No hepatosplenomegaly present and no masses Auscultation: normal bowel sounds Back/Spine/Pelvis Thoracic/Lumbar Spine: thoracic and lumbar spine normal to inspection Skin General skin exam: no rashes or lesions noted Neuro General: patient oriented x3 and no focal motor deficits Cranial nerves: Yes CN's II-XII intact bilaterally Extrem General: Yes normal to inspection, Yes no clubbing, cyanosis or edema and Yes no calf tenderness Psych Appearance: grossly normal and well kempt Speech and movement: Normal speech and movement present Assessment & Plan Assessment & Plan (1) Personal history of nicotine dependence: Comment: (current smoker - onset 18yo, 1-1.5ppd x 53yrs, 65pyh - now half pack a day . Patient is participating in annual lung screening program. Code(s): Z87.891 - Personal history of nicotine dependence Plan: HAD A LONG DISCUSSION WITH HIM ABOUT SMOKING, URGED HIM TO QUIT COMPLETELY. TO HELP HIM IN QUITTING I HAVE PRESCRIBED NICOTINE PATCH, STARTING WITH 21 MG DAILY. THEN FOLLOW THE INSTRUCTIONS . (2) COPD (chronic obstructive pulmonary disease): Comment: PATIENT HAS ADVANCED CHRONIC OBSTRUCTIVE PULMONARY DISEASE. FEV1=0.45 L FVC= 0.8 L 20 % of normal . CLINICALLY HOLDING STABLE ON HIS CURRENT MEDICAL REGIMEN FOLLOWS: HOWEVER HE SEEMS TO HAVE A FEELING OF CHEST CONGESTION. AND THE CT SCAN SHOWING INCREASED BRONCHIAL THICKENING INDICATES THAT HE MAY HAVE A PROCESS OF ACUTE BRONCHITIS. Code(s): J44.9 - Chronic obstructive pulmonary disease, unspecified Qualifiers: COPD type: unspecified COPD Qualified Code(s): J44.9 - Chronic obstructive pulmonary disease, unspecified Plan: [place] :SYMBICORT 160-4.52 PUFFS B.I.D. IPRATROPIUM/ALBUTEROL SOLUTION IN UPDRAFTS Q.I.D. PROAIR 2 PUFFS Q 4-6 HOURS P.R.N. WHEN OUTDOORS DOXYCYCLINE 100 B.I.D. FOR 10 DAYS IS PRESCRIBED FOR POSSIBLE PERIBRONCHIAL INFECTION. (3) Exercise hypoxemia: Comment: (Exercise induced Hypoxemia - using portable O2) HE ALSO USES O2 P.R.N. AT HOME, BUT NOT AT NIGHT. Code(s): R09.02 - Hypoxemia Plan: ADVISED TO CONTINUE USING THE OXYGEN 2 L/MINUTE WHEN HE GOES OUTDOORS. AND ALSO P.R.N. AT HOME (4) Multiple pulmonary nodules: Comment: RECENT LDCT. SHOWS MULTIPLE PULMONARY. NODULES UNCHANGED FROM BEFORE IN ADDITION SHOWING INCREASED BRONCHIAL WALL THICKENING AND PERIBRONCHIAL . OPACITIES. Code(s): R91.8 - Other nonspecific abnormal finding of lung field Plan: HE IS BEING TREATED FOR ACUTE BRONCHITIS. WITH REPEAT CT SCAN OF THE CHEST AT A SHORT INTERVAL. Medications: New doxycycline hyclate 100 mg PO BID 10 days 20 tabs 0RF BRONCHITIS nicotine apply 1-21 mg NICOTINE PATCH daily for 28 days; follow with 1-14 mg PATCH daily for 14 days, then 1-7mg PATCH daily for 14 days transdermal 2 months 56 patches 0RF Quality Reporting (2019) Adult ([facility] 138///69) Body Mass Index: 30.0 Coding Level of Care Code Est Pt Level 4 (99322) Diagnoses Personal history of nicotine dependence Z87.891 Chronic obstructive pulmonary disease, unspecified COPD type J44.9 COPD type: unspecified COPD Exercise hypoxemia R09.02 Multiple pulmonary nodules R91.8
== END 2023-08-16 14:22 | disposition home or self-care (01) ==
PROVIDERS: PCP Internal Medicine; Visit Provider Internal Medicine
DX: Z87.891 Personal history of nicotine dependence (principal); J44.9 Chronic obstructive pulmonary disease, unspecified; R09.02 Hypoxemia; R91.8 Other nonspecific abnormal finding of lung field
CPT/HCPCS: 99214

== ENCOUNTER → 2023-08-16 13:56 | Outpatient (BNVA) | payer MEDICARE, SELFPAY | PROVIDERS: PCP Internal Medicine; Visit Provider Internal Medicine | DX: J44.9 Chronic obstructive pulmonary disease, unspecified (principal); R91.8 Other nonspecific abnormal finding of lung field; R09.02 Hypoxemia; Z87.891 Personal history of nicotine dependence | CPT/HCPCS: 99212 ==

== ENCOUNTER 2023-09-13 10:23 | Outpatient (AMB) | payer MEDICARE, SELFPAY ==
[2023-09-13 10:41] LABS: Prothrombin Time Whole Bld POC 55.4 sec (11.1-13.5); ~PT, ~INR - Anti Coag Clinic 4.6 (0.9-1.1)
--- NOTE | 2023-09-13 10:53 | MHC.OFFVISCO ---
Intake Intake Visit Reasons: Anticoagulation Allergies No Known Allergies [No Known Allergies*] Allergy (Verified 09/13/23 10:30) Medication List - Last Reconciled 09/13/23 by Jerilyn Streeter RN albuterol sulfate 2.5 mg (3 mL) inhalation Q4-6H PRN albuterol sulfate 90 mcg/actuation (ProAir HFA) 2 puffs inhalation Q4-6H PRN 90 days azelastine intranasal ipratropium-albuterol 0.5 mg-3 mg(2.5 mg base)/3 mL 3 mL inhalation QID lisinopril 2.5 mg (1/2 x 5 mg) PO DAILY metoprolol succinate ER 100 mg (2 x 50 mg) PO DAILY multivitamin (Daily Multi-Vitamin tablet) 1 tab PO DAILY nebulizers To use every 4 hours nicotine apply 1-21 mg NICOTINE PATCH daily for 28 days; follow with 1-14 mg PATCH daily for 14 days, then 1-7mg PATCH daily for 14 days transdermal 2 months Oxygen Home Use As directed spironolactone 12.5 mg (1/2 x 25 mg) PO DAILY Symbicort 160-4.5 mcg/actuation (budesonide-formoterol) 2 puffs PO BID NS torsemide 60 mg PO ONCE PRN warfarin 5 mg See Protocol PO DAILY Nursing Note Pt to [facility] with use of walker and portable O2 INR 4.6?out of therapeutic range of 2-3 Medications and supplements reviewed: completed a course of doxycycline 3 for bronchitis Patient status: trying to quit smoking but having a difficult time, stopped then restarted. Medications or supplements: no changes Diet: same Denies any signs and symptoms of bleeding or clotting or unusual bruising Bleeding, bruising, clotting discussed Nutritional guidance given: to have greens today and tomorrow then to balance greens and reds Dose: pt already took todays dose of 2.5mg, will hold tomorrow's dose\ then decrease weekly dose to 2.5mg X 2 days and 5mg X 5 days F/U INR Date : 11 days?? Patient verbalizing understanding of instructions given. Anti-Coag Initial Assessment Social Hx Patient Tobacco Use Status: Current everyday Tobacco user Tobacco use type: Cigarette Smoking packs per day: 0.5 alcohol intake: current Alcohol intake frequency: other Cardiovascular Hx: HTN, CHF, Arrhythmias and Other Lung Disease HX: COPD and Other Blood Disorder Hx: Anemia GI Hx: Diverticulosis Neurological Hx: Other Cancer HX: No Psych. Illness/Depression: No Coding Level of Care Code Est Patient Level 1 Diagnoses Current use of anticoagulant therapy Z79.01 Assessment & Plan Assessment & Plan (1) Current use of anticoagulant therapy: Code(s): Z79.01 - [facility] (current) use of anticoagulants Category: Medical
== END 2023-09-13 11:00 | disposition home or self-care (01) ==
LOC: HO.ACS 10:23
PROVIDERS: PCP Internal Medicine; Visit Provider Internal Medicine
DX: Z79.01 Long term (current) use of anticoagulants (principal)

== ENCOUNTER → 2023-09-13 10:23 | Outpatient (BNVA) | payer MEDICARE, SELFPAY | PROVIDERS: PCP Internal Medicine; Visit Provider Internal Medicine | DX: J42 Unspecified chronic bronchitis (principal); R91.8 Other nonspecific abnormal finding of lung field; J96.91 Respiratory failure, unspecified with hypoxia; I48.0 Paroxysmal atrial fibrillation; Z51.81 Encounter for therapeutic drug level monitoring; Z79.01 Long term (current) use of anticoagulants; Z87.891 Personal history of nicotine dependence | CPT/HCPCS: 85610; 99211; 99212 ==

== ENCOUNTER 2023-09-13 10:54 | Outpatient (AMB) | payer MEDICARE, SELFPAY ==
--- NOTE | 2023-09-13 11:09 | A.OFFVIS_ITS ---
Intake Vital Signs 09/13/23 11:10 Height 5 ft 8 in Weight 199 lb 8.293 oz BMI 30.3 BP 110/64 Blood Pressure Location Lt brachial Position Sitting Pulse 90 Pulse Oximetry (%) 94 Oxygen Delivery Method Nasal Cannula Oxygen Flow Rate 3 Intake Visit Reasons: Pulmonary nodules Intake Note: pt is here for follow up and states he is using his nebulizer about every 4-6 hours with avg with 5 times a day, he does wake up at night with the feeling that he needs a treatment, and after he does he gets a few more hours. AT night the O2 is on 2.5 liters while sleeping. Stakeholder Manager Required: No Allergies No Known Allergies [No Known Allergies*] Allergy (Verified 09/13/23 11:52) Medication List - Last Reconciled 09/13/23 by Rey August MD albuterol sulfate 2.5 mg (3 mL) inhalation Q4-6H PRN albuterol sulfate 90 mcg/actuation (ProAir HFA) 2 puffs inhalation Q4-6H PRN 90 days azelastine intranasal ipratropium-albuterol 0.5 mg-3 mg(2.5 mg base)/3 mL 3 mL inhalation QID lisinopril 2.5 mg (1/2 x 5 mg) PO DAILY metoprolol succinate ER 100 mg (2 x 50 mg) PO DAILY multivitamin (Daily Multi-Vitamin tablet) 1 tab PO DAILY nebulizers To use every 4 hours nicotine apply 1-21 mg NICOTINE PATCH daily for 28 days; follow with 1-14 mg PATCH daily for 14 days, then 1-7mg PATCH daily for 14 days transdermal 2 months Oxygen Home Use As directed spironolactone 12.5 mg (1/2 x 25 mg) PO DAILY Symbicort 160-4.5 mcg/actuation (budesonide-formoterol) 2 puffs PO BID NS torsemide 60 mg PO ONCE PRN warfarin 5 mg See Protocol PO DAILY Do you need a note to return to daycare/school/sports/work: No HPI Pulmonary nodules HPI Details THIS 73 YEARS OLD GENTLEMAN IS HERE FOR A SHORT-TERM FOLLOW-UP. HE DID COMPLETE THE COURSE OF DOXYCYCLINE. CONTINUES TO USE DUONEB UPDRAFTS Q 6 HOURS DURING THE DAYTIME. IN ADDITION HE IS USING ALBUTEROL 2.5 MG IN THE UPDRAFT A FEW TIMES DURING THE DAY AND ALSO AT NIGHT. HE CLAIMS THAT HE DOES FEEL BETTER AFTER HE HAS TAKEN DOXYCYCLINE. HE IS ON NICOTINE PATCH PROGRAM AND HAS QUIT COMPLETELY SINCE 6 DAYS AGO. STILL HAVING LOT OF CRAVING FOR THE CIGARETTES. HE STILL HAS INTERMITTENT COUGH BUT NOT MUCH EXPECTORATION. HE STILL GETS SHORT OF BREATH ON MINIMAL EXERTION. 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 Mother No problems noted. Brother Esophageal cancer Social History Household Members: Children [facility] Do you presently have visiting nurse or other home services: Yes ([facility]) Alcohol intake: current Alcohol intake frequency: other Comment: no telesitter available at this time Patient Tobacco Use Status: Former Tobacco user Tobacco use type: Cigarette Cigarette Packs Per Day: 0.5 Cigarettes Per Day: 5 Years Smoked: (onset 18yo, 1-1.5ppd x 53yrs, 65pyh - now 1cig/day) e-Cigarette/Vaping Use: Never Used Second Hand Smoke Exposure: Yes Advance Directives Date on File: 07/01/20 service: No Current occupational status: retired Current occupation: RETIRED Current occupational exposures/hazards: No Cognitive needs: No Hearing needs: No Vision needs: No Review of Systems Const All systems reviewed & are unremarkable except as noted in HPI and below Eyes Reports loss of vision (HE IS BLIND IN RIGHT EYE) ENT Reports no additional complaints Card Denies chest pain, Reports irregular heart rhythm (ATRIAL FIBRILLATION) and Denies leg edema Resp Reports as per HPI GI Reports no additional complaints Reports no additional complaints Musc Reports no additional complaints Skin/Breast Reports system reviewed and no additional complaints, except as documented Neuro Reports no additional complaints and Reports loss of vision (HE IS BLIND IN RIGHT EYE) Psych Reports no additional complaints Physical Exam Vital Signs: Last Vital Signs Pulse 90 09/13/23 11:10 BP 110/64 09/13/23 11:10 Pulse Ox 94 09/13/23 11:10 Oxygen Delivery Method Nasal Cannula 09/13/23 11:10 Oxygen Flow Rate 3 09/13/23 11:10 BMI result Body Mass Index 30.3 Const General: comfortable, no acute distress, alert and awake Orientation/consciousness: patient oriented x3 HEENT Head: Yes normal to inspection General nose exam: No nasal polyps present and No nasal discharge present Face and sinus: Yes sinuses nontender Mouth: oropharynx normal Throat: Yes posterior oropharynx normal Eyes General: appearance normal, both eyes and all related structures Visual Chapman: visual chapman abnormal by confrontation (Blind in right eye) Neck Neck: Yes normal visual inspection, Yes no lymphadenopathy, Yes trachea midline and Yes no JVD Thyroid: Thyroid normal Chest Chest palpation & inspection: normal inspection of the chest, normal palpation of entire chest wall and no tenderness Resp Other: Percussion note is hyper-resonant, breath sounds are very distant with prolonged expiratory phase. Has scattered wheezes on both sides especially over the lower lobes. Cardio Palpation: normal PMI Rate: regular rate Rhythm: regular rhythm Heart sounds: no gallops and no murmurs GI Palpation (GI): Soft to palpation, nontender, No hepatosplenomegaly present and no masses Auscultation: normal bowel sounds Back/Spine/Pelvis Thoracic/Lumbar Spine: thoracic and lumbar spine normal to inspection Skin General skin exam: no rashes or lesions noted Neuro General: patient oriented x3 and no focal motor deficits Cranial nerves: Yes CN's II-XII intact bilaterally Extrem General: Yes normal to inspection, Yes no clubbing, cyanosis or edema and Yes no calf tenderness Psych Appearance: grossly normal and well kempt Speech and movement: Normal speech and movement present Assessment & Plan Assessment & Plan (1) COPD (chronic obstructive pulmonary disease): Comment: PATIENT HAS ADVANCED CHRONIC OBSTRUCTIVE PULMONARY DISEASE. FEV1=0.45 L FVC= 0.8 L 20 % of normal . CLINICALLY HOLDING STABLE ON HIS CURRENT MEDICAL REGIMEN FOLLOWS: Code(s): J44.9 - Chronic obstructive pulmonary disease, unspecified Qualifiers: COPD type: unspecified COPD Qualified Code(s): J44.9 - Chronic obstructive pulmonary disease, unspecified Plan: Symbicort, generic, 160-4.5, 2 puffs b.i.d. ( Gets from Erik ) Ipratropium-albuterol inh solution, in the nebulizer 4 times a day. Albuterol solution in the nebulizer q.4 hours p.r.n. for acute attacks. (2) Personal history of nicotine dependence: Comment: (current smoker - onset 18yo, 1-1.5ppd x 53yrs, 65pyh - now half pack a day . Patient is participating in annual lung screening program. Code(s): Z87.891 - Personal history of nicotine dependence Plan: Since his last visit he is on nicotine patch program, . Still on step 1 He claims that he did quit 1 week ago and has not gone back to smoking.. I commended him for stopping the smoking, and urged him not to go back to cigarettes at all. Continue the nicotine patch program. (3) Multiple pulmonary nodules: Comment: RECENT LDCT. SHOWS MULTIPLE PULMONARY. NODULES UNCHANGED FROM BEFORE IN ADDITION SHOWING INCREASED BRONCHIAL WALL THICKENING AND PERIBRONCHIAL . OPACITIES. Code(s): R91.8 - Other nonspecific abnormal finding of lung field Plan: He will continue to have annual low does CT scan of the lung (4) Chronic bronchitis: Comment: In addition to pulmonary emphysema he also has chronic bronchitis. Recent low-dose CT scan showed thickening of the bronchial archer indicated of chronic bronchitis. In addition patchy peribronchial infiltrates were noted. He has been treated with doxycycline 100 b.i.d. for 10 days. Code(s): J42 - Unspecified chronic bronchitis Plan: Will need to repeat CT scan at a short interval, And that will be ordered when I see him next month. (5) Respiratory failure with hypoxia: Comment: Patient does have nocturnal as well as daytime hypoxemia Code(s): J96.91 - Respiratory failure, unspecified with hypoxia Plan: Continue to use O2 2 L/minute continuously during the daytime as well as at night Coding Level of Care Code Est Pt Level 4 (02858) Diagnoses Chronic obstructive pulmonary disease, unspecified COPD type J44.9 COPD type: unspecified COPD Personal history of nicotine dependence Z87.891 Multiple pulmonary nodules R91.8 Chronic bronchitis J42 Respiratory failure with hypoxia J96.91
[2023-09-13 11:10] VITALS: BP 110/64; PULSE 90; O2SAT 94; BMI 30.3
== END 2023-09-13 11:50 | disposition home or self-care (01) ==
PROVIDERS: PCP Internal Medicine; Visit Provider Internal Medicine
DX: J44.9 Chronic obstructive pulmonary disease, unspecified (principal); Z87.891 Personal history of nicotine dependence; R91.8 Other nonspecific abnormal finding of lung field; J96.91 Respiratory failure, unspecified with hypoxia
CPT/HCPCS: 99214

== ENCOUNTER → 2023-10-11 23:59 | Outpatient (BNV) | payer MEDICARE, SELFPAY ==
--- NOTE | 2023-10-14 20:39 | MHC.OFFVIS ---
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 Mother No problems noted. Brother Esophageal cancer Social History Household Members: Children Housing: [facility] Do you presently have visiting nurse or other home services: Yes ([facility]) Alcohol intake: current Alcohol intake frequency: other Comment: no telesitter available at this time Patient Tobacco Use Status: Former Tobacco user Tobacco use type: Cigarette Cigarette Packs Per Day: 0.5 Cigarettes Per Day: 5 Years Smoked: (onset 18yo, 1-1.5ppd x 53yrs, 65pyh - now 1cig/day) e-Cigarette/Vaping Use: Never Used Second Hand Smoke Exposure: Yes Advance Directives Date on File: 07/01/20 service: No Current occupational status: retired Current occupation: RETIRED Current occupational exposures/hazards: No Cognitive needs: No Hearing needs: No Vision needs: No Office Procedures Cardiac Device Check Cardiac Device Check Details: Date of service- 10/11/2023 ; Battery life 70%; normal lead parameters; AP 1%; SIEVE MAKER 99%; no significant arrhythmias. Overall normal device function. [id number] Cardiac Device Interrogation, pacemaker Procedure code (CPT) selection complete Assessment & Plan Assessment & Plan (1) Complete heart block: Code(s): I44.2 - Atrioventricular block, complete Category: Medical Plan x Coding Level of Care Code Procedure Only Diagnoses Complete heart block I44.2 CPT Codes Cardiac Device Check - Cardiac Device 12: [id number] Cardiac Device Interrogation, pacemaker ([id number])
== END ==
PROVIDERS: PCP Internal Medicine; Visit Provider Internal Medicine
DX: I44.2 Atrioventricular block, complete (principal); Z95.0 Presence of cardiac pacemaker
CPT/HCPCS: 93294

== ENCOUNTER 2023-10-18 13:56 | Outpatient (AMB) | payer MEDICARE, SELFPAY ==
--- NOTE | 2023-10-18 14:09 | MHC.OFFVISCO ---
Intake Intake Visit Reasons: Anticoagulation Allergies head and shoulders shampoo Adverse Reaction (Severe, Uncoded 10/18/23 15:00) burn Medication List - Last Reconciled 10/18/23 by Jada Bradshaw RN albuterol sulfate 2.5 mg (3 mL) inhalation Q4-6H PRN albuterol sulfate 90 mcg/actuation (ProAir HFA) 2 puffs inhalation Q4-6H PRN 90 days azelastine intranasal PRN ipratropium-albuterol 0.5 mg-3 mg(2.5 mg base)/3 mL 3 mL inhalation QID lisinopril 2.5 mg (1/2 x 5 mg) PO DAILY metoprolol succinate ER 100 mg (2 x 50 mg) PO DAILY multivitamin (Daily Multi-Vitamin tablet) 1 tab PO DAILY nebulizers To use every 4 hours nicotine apply 1-21 mg NICOTINE PATCH daily for 28 days; follow with 1-14 mg PATCH daily for 14 days, then 1-7mg PATCH daily for 14 days transdermal 2 months Oxygen Home Use As directed spironolactone 12.5 mg (1/2 x 25 mg) PO DAILY Symbicort 160-4.5 mcg/actuation (budesonide-formoterol) 2 puffs PO BID NS torsemide 60 mg PO ONCE PRN warfarin 5 mg See Protocol PO DAILY Nursing Note INR 4.1-?? out of therapeutic range of 2-3 Medications and supplements reviewed Patient status: pt with period of not feeling well, increased stress- states severe allergic reaction to head and shoulders shampoo with blistering of scalp. hands now peeling- pt attempting to get pcp appt, pt amb with walker, on cont oxygen, states now smoking again, not on nicotine patch at present, increase etoh ,c.o itch pt has pulm appt today Medications or supplements: betamethasone oint for hands Diet: same Denies any signs and symptoms of bleeding or clotting or unusual bruising Bleeding, bruising, clotting discussed Nutritional guidance given: eat greens to lower, no reds for 3 days Dose: already took warfarin today, hold dose tomm then cont 2.5mg x 2, 5mg x 5 F/U INR Date : 1 week?? Patient verbalizing understanding of instructions given pcp office called- appt made for pcp yamilet at 1340, spoke to bettye Anti-Coag Initial Assessment Social Hx Patient Tobacco Use Status: Former Tobacco user Tobacco use type: Cigarette Smoking packs per day: 0.5 alcohol intake: current Alcohol intake frequency: other Cardiovascular Hx: HTN, CHF, Arrhythmias and Other Lung Disease HX: COPD and Other Blood Disorder Hx: Anemia GI Hx: Diverticulosis Neurological Hx: Other Cancer HX: No Psych. Illness/Depression: No Coding Level of Care Code Est Patient Level 1 Diagnoses Current use of anticoagulant therapy Z79.01 Assessment & Plan Assessment & Plan (1) Current use of anticoagulant therapy: Code(s): Z79.01 - terminal carman (current) use of anticoagulants Category: Medical
[2023-10-18 14:10] LABS: Prothrombin Time Whole Bld POC 49.7 sec (11.1-13.5); ~PT, ~INR - Anti Coag Clinic 4.1 (0.9-1.1)
== END 2023-10-18 14:33 | disposition home or self-care (01) ==
LOC: HO.ACS 13:56
PROVIDERS: PCP Internal Medicine; Visit Provider Internal Medicine
DX: Z79.01 Long term (current) use of anticoagulants (principal)

== ENCOUNTER → 2023-10-18 13:56 | Outpatient (BNVA) | payer MEDICARE, SELFPAY | PROVIDERS: PCP Internal Medicine; Visit Provider Internal Medicine | DX: I48.0 Paroxysmal atrial fibrillation (principal); Z51.81 Encounter for therapeutic drug level monitoring; Z79.01 Long term (current) use of anticoagulants; J96.91 Respiratory failure, unspecified with hypoxia; J44.9 Chronic obstructive pulmonary disease, unspecified; R91.8 Other nonspecific abnormal finding of lung field; F17.210 Nicotine dependence, cigarettes, uncomplicated; Z99.81 Dependence on supplemental oxygen; Z95.0 Presence of cardiac pacemaker | CPT/HCPCS: 85610; 99211; 99212 ==

== ENCOUNTER 2023-10-18 14:30 | Outpatient (AMB) | payer MEDICARE, SELFPAY ==
[2023-10-18 14:37] VITALS: BP 110/62; PULSE 95; O2SAT 95; BMI 30.3
--- NOTE | 2023-10-18 14:37 | A.OFFVIS_ITS ---
Vital Signs 10/18/23 14:37 Height 5 ft 8 in Weight 199 lb 8.293 oz BMI 30.3 BP 110/62 Blood Pressure Location Lt brachial Position Sitting Pulse 95 Pulse Source Pulse Oximeter Pulse Oximetry (%) 95 Oxygen Delivery Method Nasal Cannula Oxygen Flow Rate 3 Intake Visit Reasons: COPD Intake Note: pt is here for follow up from sick visit, and he does feel about the same. Had a bad reaction to head and shoulders that has affected his head, and hands. Turkish Line Attendant Required: No Allergies head and shoulders shampoo Adverse Reaction (Severe, Uncoded 10/18/23 15:00) burn Medication List - Last Reconciled 10/18/23 by Rey August MD albuterol sulfate 2.5 mg (3 mL) inhalation Q4-6H PRN albuterol sulfate 90 mcg/actuation (ProAir HFA) 2 puffs inhalation Q4-6H PRN 90 days azelastine intranasal PRN ipratropium-albuterol 0.5 mg-3 mg(2.5 mg base)/3 mL 3 mL inhalation QID lisinopril 2.5 mg (1/2 x 5 mg) PO DAILY metoprolol succinate ER 100 mg (2 x 50 mg) PO DAILY multivitamin (Daily Multi-Vitamin tablet) 1 tab PO DAILY nebulizers To use every 4 hours nicotine apply 1-21 mg NICOTINE PATCH daily for 28 days; follow with 1-14 mg PATCH daily for 14 days, then 1-7mg PATCH daily for 14 days transdermal 2 months Oxygen Home Use As directed spironolactone 12.5 mg (1/2 x 25 mg) PO DAILY Symbicort 160-4.5 mcg/actuation (budesonide-formoterol) 2 puffs PO BID NS torsemide 60 mg PO ONCE PRN warfarin 5 mg See Protocol PO DAILY Do you need a note to return to daycare/school/sports/work: No HPI HPI COPD: Details: 73 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 HE DOES NOT HAVE ANY ACUTE SYMPTOMS BUT HIS BASELINE SYMPTOMS ARE THE SAME WHICH INCLUDE SHORTNESS OF BREATH ON MINIMAL EXERTION,. COUGH. AND NEED TO BE ON OXYGEN 24 HOURS A DAY. HE HAD CUT DOWN HIS CIGARETTES TO ONLY A FEW CIGARETTES PER DAY, AND HE FELT MUCH BETTER. UNFORTUNATELY HE HAD SKIN REACTION TO A HAD AND SHOULDER TYPE OF SHAMPOO, AND HE CLAIMS THAT DUE TO INCREASED ITCHING HE WENT BACK TO SMOKING. AND NOW HE HAS MORE FREQUENT COUGH WITH SOME EXPECTORATION. 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 Mother No problems noted. Brother Esophageal cancer Social History Household Members: Children Housing: [facility] Do you presently have visiting nurse or other home services: Yes ([facility]) Alcohol intake: current Alcohol intake frequency: other Comment: no telesitter available at this time Patient Tobacco Use Status: Former Tobacco user Tobacco use type: Cigarette Cigarette Packs Per Day: 0.5 Cigarettes Per Day: 5 Years Smoked: (onset 18yo, 1-1.5ppd x 53yrs, 65pyh - now 1cig/day) e-Cigarette/Vaping Use: Never Used Second Hand Smoke Exposure: Yes Advance Directives Date on File: 07/01/20 service: No Current occupational status: retired Current occupation: RETIRED Current occupational exposures/hazards: No Cognitive needs: No Hearing needs: No Vision needs: No Review of Systems Const All systems reviewed & are unremarkable except as noted in HPI and below Eyes Reports loss of vision (HE IS BLIND IN RIGHT EYE) ENT Reports no additional complaints Card Denies chest pain, Reports irregular heart rhythm (ATRIAL FIBRILLATION) and Denies leg edema Resp Reports as per HPI GI Reports no additional complaints Reports no additional complaints Musc Reports no additional complaints Skin/Breast Reports system reviewed and no additional complaints, except as documented Neuro Reports no additional complaints and Reports loss of vision (HE IS BLIND IN RIGHT EYE) Psych Reports no additional complaints Physical Exam Vital Signs: Last Vital Signs Pulse 95 10/18/23 14:37 BP 110/62 10/18/23 14:37 Pulse Ox 95 10/18/23 14:37 Oxygen Delivery Method Nasal Cannula 10/18/23 14:37 Oxygen Flow Rate 3 10/18/23 14:37 BMI result Body Mass Index 30.3 Const General: comfortable, no acute distress, alert and awake Orientation/consciousness: patient oriented x3 HEENT Head: Yes normal to inspection General nose exam: No nasal polyps present and No nasal discharge present Face and sinus: Yes sinuses nontender Mouth: oropharynx normal Throat: Yes posterior oropharynx normal Eyes General: appearance normal, both eyes and all related structures Visual Kaplan: visual kaplan abnormal by confrontation (Blind in right eye) Neck Neck: Yes normal visual inspection, Yes no lymphadenopathy, Yes trachea midline and Yes no JVD Thyroid: Thyroid normal Chest Chest palpation & inspection: normal inspection of the chest, normal palpation of entire chest wall and no tenderness Resp Other: Percussion note is hyper-resonant, breath sounds are very distant with prolonged expiratory phase. Has scattered wheezes on both sides especially over the lower lobes. Cardio Palpation: normal PMI Rate: regular rate Rhythm: regular rhythm Heart sounds: no gallops and no murmurs GI Palpation (GI): Soft to palpation, nontender, No hepatosplenomegaly present and no masses Auscultation: normal bowel sounds Back/Spine/Pelvis Thoracic/Lumbar Spine: thoracic and lumbar spine normal to inspection Skin General skin exam: no rashes or lesions noted Neuro General: patient oriented x3 and no focal motor deficits Cranial nerves: Yes CN's II-XII intact bilaterally Extrem General: Yes normal to inspection, Yes no clubbing, cyanosis or edema and Yes no calf tenderness Psych Appearance: grossly normal and well kempt Speech and movement: Normal speech and movement present Assessment & Plan Assessment & Plan (1) COPD (chronic obstructive pulmonary disease): Comment: PATIENT HAS ADVANCED CHRONIC OBSTRUCTIVE PULMONARY DISEASE. ( FEV1=0.45 L FVC= 0.8 L 20 % of normal ) CLINICALLY HOLDING STABLE ON HIS CURRENT MEDICAL REGIMEN BUT ADMITS THAT SMOKING CIGARETTES DEFINITELY INCREASES HIS SYMPTOMS. Code(s): J44.9 - Chronic obstructive pulmonary disease, unspecified Category: Medical Qualifiers: COPD type: unspecified COPD Qualified Code(s): J44.9 - Chronic obstructive pulmonary disease, unspecified Plan: SYMBICORT 160-4.52 PUFFS B.I.D. IPRATROPIUM-ALBUTEROL UPDRAFTS Q.I.D. ALBUTEROL HFA 2 PUFFS Q 4-6 HOURS P.R.N. (2) Personal history of nicotine dependence: Comment: (current smoker - onset 18yo, 1-1.5ppd x 53yrs, 65pyh - now half pack a day . Patient is participating in annual lung screening program. He had cut down his smoking to 2 cigarettes a day with the help of nicotine patch. Unfortunately he started smoking again and back to 1 pack a day, not using nicotine patch at present. Code(s): Z87.891 - Personal history of nicotine dependence Category: Medical Plan: I had a lengthy discussion with him and, told him that he has to quit smoking. Advised to go back to nicotine patch 21 mg patch daily. (3) Multiple pulmonary nodules: Comment: RECENT LDCT. SHOWS MULTIPLE PULMONARY NODULES UNCHANGED FROM BEFORE. IN ADDITION SHOWING INCREASED BRONCHIAL WALL THICKENING AND PERIBRONCHIAL . OPACITIES. Code(s): R91.8 - Other nonspecific abnormal finding of lung field Category: Medical Plan: He will continue in annual lung screening program . (4) Respiratory failure with hypoxia: Comment: Patient does have nocturnal as well as daytime hypoxemia Code(s): J96.91 - Respiratory failure, unspecified with hypoxia Category: Medical Plan: Continue to use O2 2 L/minute continuously . Coding Level of Care Code Est Pt Level 4 (37894) Diagnoses Chronic obstructive pulmonary disease, unspecified COPD type J44.9 COPD type: unspecified COPD Personal history of nicotine dependence Z87.891 Multiple pulmonary nodules R91.8 Respiratory failure with hypoxia J96.91
== END 2023-10-18 15:02 | disposition home or self-care (01) ==
PROVIDERS: PCP Internal Medicine; Visit Provider Internal Medicine
DX: J44.9 Chronic obstructive pulmonary disease, unspecified (principal); Z87.891 Personal history of nicotine dependence; R91.8 Other nonspecific abnormal finding of lung field; J96.91 Respiratory failure, unspecified with hypoxia
CPT/HCPCS: 99214

== ENCOUNTER 2023-10-19 13:28 | Outpatient (AMB) | payer MEDICARE, SELFPAY ==
[2023-10-19 13:30] VITALS: BP 120/74; PULSE 100; O2SAT 94; BMI 30.1
--- NOTE | 2023-10-19 13:30 | A.OFFPC_ITS ---
Vital Signs 10/19/23 13:30 Height 5 ft 8 in Weight 198 lb BMI 30.1 BP 120/74 Blood Pressure Location Lt brachial Position Sitting Pulse 100 Pulse Source Pulse Oximeter Pulse Oximetry (%) 94 Oxygen Delivery Method Nasal Cannula Intake Visit Reasons: allergic reaction to shampoo? 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 Accompanied by: Self / Same As Patient Allergies head and shoulders shampoo Adverse Reaction (Severe, Uncoded 10/19/23 13:30) burn Medication List - Last Reconciled 10/19/23 by Charbel Poe MD albuterol sulfate 2.5 mg (3 mL) inhalation Q4-6H PRN albuterol sulfate 90 mcg/actuation (ProAir HFA) 2 puffs inhalation Q4-6H PRN 90 days azelastine intranasal PRN ipratropium-albuterol 0.5 mg-3 mg(2.5 mg base)/3 mL 3 mL inhalation QID lisinopril 2.5 mg (1/2 x 5 mg) PO DAILY metoprolol succinate ER 100 mg (2 x 50 mg) PO DAILY multivitamin (Daily Multi-Vitamin tablet) 1 tab PO DAILY nebulizers To use every 4 hours nicotine apply 1-21 mg NICOTINE PATCH daily for 28 days; follow with 1-14 mg PATCH daily for 14 days, then 1-7mg PATCH daily for 14 days transdermal 2 months Oxygen Home Use As directed spironolactone 12.5 mg (1/2 x 25 mg) PO DAILY Symbicort 160-4.5 mcg/actuation (budesonide-formoterol) 2 puffs PO BID NS torsemide 60 mg PO ONCE PRN warfarin 5 mg See Protocol PO DAILY Tobacco use date assessed: 06/28/23 Fall risk assessment: No Falls in past year Last assessed Fall Risk: 10/19/23 Dental Screening Dental Screen Date: 06/28/23 HPI allergic reaction to shampoo? 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 Mother No problems noted. Brother Esophageal cancer Social History Household Members: Children [facility] Do you presently have visiting nurse or other home services: Yes ([facility]) Alcohol intake: current Alcohol intake frequency: other Comment: no telesitter available at this time Patient Tobacco Use Status: Former Tobacco user Tobacco use type: Cigarette Cigarette Packs Per Day: 0.5 Cigarettes Per Day: 5 Years Smoked: (onset 18yo, 1-1.5ppd x 53yrs, 65pyh - now 1cig/day) e-Cigarette/Vaping Use: Never Used Second Hand Smoke Exposure: Yes Advance Directives Date on File: 07/01/20 service: No Current occupational status: retired Current occupation: RETIRED Current occupational exposures/hazards: No Cognitive needs: Yes (walker) Hearing needs: No Vision needs: No Questionnaire Thrive Questionnaire Date Thrive assessed: 06/28/23 ALEJO-7 AMB Questionnaire ALEJO-7 Date ALEJO - 7 assessed: 06/28/23 Source: Developed by Drs. Paramjit Wade, Brooke Browne, Max Roberson and colleagues, with an educational seble from [employer]. Review of Systems Const Denies chills, Denies headache(s) and Denies weight loss ENT Denies headache(s) Card Denies chest pain, Denies syncope, Denies irregular heart rhythm and Denies dyspnea Resp Denies chest congestion, Denies cough and Denies dyspnea GI Denies abdominal pain, Denies change in stool character, Denies nausea and Denies vomiting Musc Denies deformity and Denies joint swelling Neuro Denies syncope and Denies headache(s) Physical exam (Primary Care) Vital Signs: Last Vital Signs Pulse 100 10/19/23 13:30 BP 120/74 10/19/23 13:30 Pulse Ox 94 10/19/23 13:30 Oxygen Delivery Method Nasal Cannula 10/19/23 13:30 BMI result Body Mass Index 30.1 Tobacco/Smoking Status: Tobacco use Status Tobacco use date assessed 06/28/23 10/19/23 13:30 Patient Tobacco Use Status Former Tobacco user 10/19/23 13:30 Tobacco use type Cigarette 10/19/23 13:30 e-Cigarette/Vaping Use Never Used 10/19/23 13:30 Thrive Assessment: Date of Thrive Assessment Date Thrive assessed 06/28/23 10/19/23 13:30 Const General: cooperative, comfortable, no acute distress and alert Neck Neck: Yes no lymphadenopathy Thyroid: Thyroid normal Resp Effort & Inspection: normal respiratory effort Auscultation: clear to auscultation bilaterally Percussion: percussion normal Cardio Jugular venous distension: no JVD Palpation: normal PMI Rate: regular rate Rhythm: regular rhythm Heart sounds: S1 normal heart sound present and S2 normal heart sound present GI Inspection: Yes normal to inspection Palpation (GI): No hepatosplenomegaly present Skin General skin exam: no rashes or lesions noted Extrem General: Yes no clubbing, cyanosis or edema Assessment and Plan Assessment & Plan (1) Hand dermatitis: Code(s): L30.9 - Dermatitis, unspecified Plan: rx sent (2) Hand dermatitis: Code(s): L30.9 - Dermatitis, unspecified Medications: New betamethasone dipropionate 0.05% 1 appl topical BID PRN 45 grams 0RF skin irritation betamethasone dipropionate 0.05% 1 appl topical BID 60 mL 0RF Coding Level of Care Code Est Pt Level 3 (18658) Diagnoses Hand dermatitis L30.9
== END 2023-10-19 13:44 | disposition home or self-care (01) ==
PROVIDERS: PCP Internal Medicine; Visit Provider Internal Medicine
DX: L30.9 Dermatitis, unspecified (principal)
CPT/HCPCS: 99213

== ENCOUNTER 2023-10-28 14:05 | Outpatient (AMB) | payer MEDICARE, SELFPAY ==
[2023-10-28 14:15] LABS: Prothrombin Time Whole Bld POC 29.9 sec (11.1-13.5); ~PT, ~INR - Anti Coag Clinic 2.5 (0.9-1.1)
--- NOTE | 2023-10-28 14:27 | MHC.OFFVISCO ---
Intake Intake Visit Reasons: Anticoagulation Allergies head and shoulders shampoo Adverse Reaction (Severe, Uncoded 10/28/23 14:06) burn Medication List - Last Reconciled 10/28/23 by Alem Baumann RN albuterol sulfate 2.5 mg (3 mL) inhalation Q4-6H PRN albuterol sulfate 90 mcg/actuation (ProAir HFA) 2 puffs inhalation Q4-6H PRN 90 days azelastine intranasal PRN betamethasone dipropionate 0.05% 1 appl topical BID PRN betamethasone dipropionate 0.05% 1 appl topical BID ipratropium-albuterol 0.5 mg-3 mg(2.5 mg base)/3 mL 3 mL inhalation QID lisinopril 2.5 mg (1/2 x 5 mg) PO DAILY metoprolol succinate ER 100 mg (2 x 50 mg) PO DAILY multivitamin (Daily Multi-Vitamin tablet) 1 tab PO DAILY nebulizers To use every 4 hours nicotine apply 1-21 mg NICOTINE PATCH daily for 28 days; follow with 1-14 mg PATCH daily for 14 days, then 1-7mg PATCH daily for 14 days transdermal 2 months Oxygen Home Use As directed spironolactone 12.5 mg (1/2 x 25 mg) PO DAILY Symbicort 160-4.5 mcg/actuation (budesonide-formoterol) 2 puffs PO BID NS torsemide 60 mg PO ONCE PRN warfarin 5 mg See Protocol PO DAILY Nursing Note INR 2.5?? out of therapeutic range Medications and supplements reviewed Patient status: DOING MUCH BETTER, ALLERIG REACTION HAS CLEARED, during the allergic flare up he smoked and drank to deal with it , plus had a family cisis - but is resolving. Medications or supplements: used topical agents for allergic reaction - better now Diet: good - has meals on wheels Denies any signs and symptoms of bleeding or clotting or unusual bruising Bleeding, bruising, clotting discussed Nutritional guidance given: eat a mix of fruits and vegetables Dose: resume 2.5mg x 1 day/ 5mg x 6 days F/U INR Date : 1 month per pt request due to family situation? Patient verbalizing understanding of instructions given. Anti-Coag Initial Assessment Social Hx Patient Tobacco Use Status: Former Tobacco user Tobacco use type: Cigarette Smoking packs per day: 0.5 alcohol intake: current Alcohol intake frequency: other Cardiovascular Hx: HTN, CHF, Arrhythmias and Other Lung Disease HX: COPD and Other Blood Disorder Hx: Anemia GI Hx: Diverticulosis Neurological Hx: Other Cancer HX: No Psych. 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
== END 2023-10-28 14:33 | disposition home or self-care (01) ==
LOC: HO.ACS 14:05
PROVIDERS: PCP Internal Medicine; Visit Provider Internal Medicine
DX: Z79.01 Long term (current) use of anticoagulants (principal)

== ENCOUNTER → 2023-10-28 14:05 | Outpatient (BNVA) | payer MEDICARE, SELFPAY | PROVIDERS: PCP Internal Medicine; Visit Provider Internal Medicine | DX: I48.0 Paroxysmal atrial fibrillation (principal); Z51.81 Encounter for therapeutic drug level monitoring; Z79.01 Long term (current) use of anticoagulants | CPT/HCPCS: 85610; 99211 ==

== ENCOUNTER 2023-12-06 12:25 | Outpatient (AMB) | payer MEDICARE, SELFPAY ==
[2023-12-06 13:09] VITALS: BP 100/52; PULSE 91; BMI 29.8
--- NOTE | 2023-12-06 13:09 | A.OFFVIS_ITS ---
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 Allergies head and shoulders shampoo Adverse Reaction (Severe, Uncoded 12/06/23 14:19) burn Medication List - Last Reconciled 12/06/23 by Ambar De Paz NP-C albuterol sulfate 2.5 mg (3 mL) inhalation Q4-6H PRN albuterol sulfate 90 mcg/actuation (ProAir HFA) 2 puffs inhalation Q4-6H PRN 90 days azelastine intranasal PRN betamethasone dipropionate 0.05% 1 appl topical BID PRN betamethasone dipropionate 0.05% 1 appl topical BID budesonide-formoterol 160-4.5 mcg/actuation 2 puffs PO BID 90 days NS ipratropium-albuterol 0.5 mg-3 mg(2.5 mg base)/3 mL 3 mL inhalation QID lisinopril 2.5 mg (1/2 x 5 mg) PO DAILY metoprolol succinate ER 100 mg (2 x 50 mg) PO DAILY multivitamin (Daily Multi-Vitamin tablet) 1 tab PO DAILY nebulizers To use every 4 hours nicotine apply 1-21 mg NICOTINE PATCH daily for 28 days; follow with 1-14 mg PATCH daily for 14 days, then 1-7mg PATCH daily for 14 days transdermal 2 months Oxygen Home Use As directed spironolactone 12.5 mg (1/2 x 25 mg) PO DAILY warfarin 5 mg See Protocol PO DAILY HPI HPI 6 month follow up w/ device check: Details: Stan is a 73-year-old male with past medical history of hypertension, COPD, O2 dependent, complete heart block status post dual-chamber pacemaker placement, nonischemic cardiomyopathy, no significant CAD on recent cardiac catheterization who presents for follow-up. Today he reports he has been unchanged since his last visit in May. He does describe having an allergic reaction to head and shoulders shampoo and burned his scalp and hands. He has been dealing with that for the last 2 months as he continues to recover. His breathing is unchanged any wears oxygen much of the time. He is short of breath with activity and ambulates with a walker. No PND, orthopnea or edema. No chest discomfort, heart palpitations, presyncope, syncope. No bleeding issues with Coumadin. He has not required diuretics recently. He is taking all meds as directed. 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 Mother No problems noted. Brother Esophageal cancer Social History Household Members: Children Housing: [facility] Do you presently have visiting nurse or other home services: Yes ([facility]) Alcohol intake: current Alcohol intake frequency: other Comment: no telesitter available at this time Patient Tobacco Use Status: Former Tobacco user Tobacco use type: Cigarette Cigarette Packs Per Day: 0.5 Cigarettes Per Day: 5 Years Smoked: (onset 18yo, 1-1.5ppd x 53yrs, 65pyh - now 1cig/day) e-Cigarette/Vaping Use: Never Used Second Hand Smoke Exposure: Yes Advance Directives Date on File: 07/01/20 service: No Current occupational status: retired Current occupation: RETIRED Current occupational exposures/hazards: No Cognitive needs: Yes (walker) Hearing needs: No Vision needs: No Review of Systems Const All systems reviewed & are unremarkable except as noted in HPI and below ENT Denies dizziness Card Denies chest pain, Denies chest pain at rest, Denies chest pain with activity, Denies rapid heart rate, Denies pedal edema, Denies edema, Denies leg edema, Denies lightheadedness, Denies palpitations, Reports dyspnea, Reports dyspnea on exertion and Denies orthopnea Resp Details: wearing oxygen supplement continually Denies cough, Reports dyspnea and Reports dyspnea on exertion GI Denies hematochezia and Denies change in stool character Musc Details: Ambulates with walker Denies abnormal gait, Denies limited range of motion, Denies muscle cramps, Denies muscle weakness, Denies numbness, Denies radiating pain into limb, Denies stiffness and Denies tingling Neuro Denies abnormal gait, Denies dizziness, Denies numbness and Denies tingling Endo Denies palpitations Physical Exam Vital Signs: Last Vital Signs Pulse 91 12/06/23 13:09 BP 100/52 L 12/06/23 13:09 BMI result Body Mass Index 29.8 Const General: cooperative, comfortable and no acute distress Orientation/consciousness: patient oriented x3 Neck Neck: Yes normal visual inspection Resp Other: Lungs diminished bilaterally Effort & Inspection: normal respiratory effort Auscultation: no crackles, no rales, no rhonchi and wheezes (Expiratory wheezes bilaterally) Cardio Jugular venous distension: no JVD Rate: regular rate Rhythm: regular rhythm Heart sounds: S1 normal heart sound present, S2 normal heart sound present, no murmurs and no rubs Neuro General: patient oriented x3 Extrem General: Yes normal to inspection and No no pedal edema Psych Appearance: grossly normal Mental Status: mental status grossly normal Speech and movement: Normal speech and movement present Office Procedures EKG Details: Biotronik dual-chamber pacemaker interrogation today, DDD mode, low rate 60, ba ttery 7 years, right atrial threshold 0.9 volts at 0.4 milliseconds, RV threshold 0.7 volts at 0.4 milliseconds, underlying complete heart block, no alerts V paced 99% [id number], Complete Results AMB INR Fingerstick AMB INR Fingerstick 3.4 Last Edit by Alem Baumann RN on 12/06/23 14:34 MANUAL ENTRY Assessment & Plan Assessment & Plan (1) Nonischemic cardiomyopathy: Comment: 02/04/2023, LAD and left circumflex with minimal luminal irregularities, left main and RCA normal Code(s): I42.8 - Other cardiomyopathies Category: Medical Plan: History of cardiomyopathy. Previously followed by [facility]. [place] [facility] [place]02[place] showed EF 45-50%. Repeat echo done 11/17/2022 showed EF 32%. He has been on medications for neurohormonal modulation including metoprolol XL and lisinopril. He has chronic shortness of breath related to COPD and is O2 dependent. He did undergo a cardiac catheterization on 02/04/23 which showed only minimal luminal irregularities of the LAD and left circumflex. His cardi omyopathy is nonischemic. His last limited echo done on 04/19/2023 showed EF 45- 50%. He has a pacemaker in place. 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 On examination he does not appear fluid overloaded. Vital signs are well optimized on current med management. He tells me that he does drink alcohol at times and continues to smoke half a pack of cigarettes daily. Instructed on reduction/sensation of alcohol use and cigarette use. Signs and symptoms of heart failure reviewed with him. He has torsemide to use as needed for increased shortness of breath or edema, no recent use required. Cardiology follow-up 6 months, sooner if needed (2) S/P cardiac catheterization: Comment: 02/04/2023 lad and left circumflex minimal luminal irregularity Code(s): Z98.890 - Other specified postprocedural states Category: Surgical Plan: As above (3) Pacemaker: Onset Date: ~06/2020 Comment: (Biotronik DCPP - placed 07/01/2020) Code(s): Z95.0 - Presence of cardiac pacemaker Category: Medical Plan: Biotronik dual-chamber pacemaker in place. Interrogation today shows device is functioning normally. Next office interrogation due in 6 months. Remote monitoring in use. (4) Paroxysmal atrial fibrillation: Code(s): I48.0 - Paroxysmal atrial fibrillation Category: Medical Plan: History of paroxysmal atrial fibrillation with ablation 2018. No reports of heart palpitations. He is on metoprolol XL for heart rate control. He is on Coumadin for anticoagulation. He follows with the [facility]. INR goal 2-3. No bleeding issues reported (5) Personal history of nicotine dependence: Code(s): Z87.891 - Personal history of nicotine dependence Category: Medical Plan: Current smoker. Using a nicotine patch at present. Tells me he will quit smoking tomorrow. He says he has a pulmonology visit in 2 weeks and wants to be able to tell Dr Mata that he quit. (6) COPD (chronic obstructive pulmonary disease): Comment: PATIENT HAS ADVANCED CHRONIC OBSTRUCTIVE PULMONARY DISEASE. ( FEV1=0.45 L FVC= 0.8 L 20 % of normal ) CLINICALLY HOLDING STABLE ON HIS CURRENT MEDICAL REGIMEN BUT ADMITS THAT SMOKING CIGARETTES DEFINITELY INCREASES HIS SYMPTOMS. Code(s): J44.9 - Chronic obstructive pulmonary disease, unspecified Category: Medical Qualifiers: COPD type: unspecified COPD Qualified Code(s): J44.9 - Chronic obstructive pulmonary disease, unspecified Plan: Follows with pulmonology Plan Time spent on chart review, documentation, interview and assessment Coding Level of Care Code Est Pt Level 4 (98476) Diagnoses Nonischemic cardiomyopathy I42.8 S/P cardiac catheterization Z98.890 Pacemaker Z95.0 Paroxysmal atrial fibrillation I48.0 Personal history of nicotine dependence Z87.891 Chronic obstructive pulmonary disease, unspecified COPD type J44.9 COPD type: unspecified COPD CPT Codes EKG - CPT: [id number], Complete ([id number]) Time Spent (min) 28
== END 2023-12-06 13:43 | disposition home or self-care (01) ==
PROVIDERS: PCP Internal Medicine; Visit Provider Nurse Practitioner Family
DX: I42.8 Other cardiomyopathies (principal); Z98.890 Other specified postprocedural states; Z95.0 Presence of cardiac pacemaker; I48.0 Paroxysmal atrial fibrillation; Z87.891 Personal history of nicotine dependence; J44.9 Chronic obstructive pulmonary disease, unspecified
CPT/HCPCS: 93010; 99214

== ENCOUNTER → 2023-12-06 12:25 | Outpatient (BNVA) | payer MEDICARE, SELFPAY | PROVIDERS: PCP Internal Medicine; Visit Provider Nurse Practitioner Family | DX: I42.8 Other cardiomyopathies (principal); I48.0 Paroxysmal atrial fibrillation; J44.9 Chronic obstructive pulmonary disease, unspecified; Z51.81 Encounter for therapeutic drug level monitoring; Z79.01 Long term (current) use of anticoagulants; Z79.899 Other long term (current) drug therapy; Z45.018 Encounter for adjustment and management of other part of cardiac pacemaker; Z87.891 Personal history of nicotine dependence; Z99.81 Dependence on supplemental oxygen | CPT/HCPCS: 85610; 93005; 99211; 99212 ==

== ENCOUNTER 2023-12-06 13:48 | Outpatient (AMB) | payer MEDICARE, SELFPAY ==
--- NOTE | 2023-12-06 14:40 | MHC.OFFVISCO ---
Intake Intake Visit Reasons: Anticoagulation Allergies head and shoulders shampoo Adverse Reaction (Severe, Uncoded 12/06/23 14:19) burn Medication List - Last Reconciled 12/06/23 by Alem Baumann RN albuterol sulfate 2.5 mg (3 mL) inhalation Q4-6H PRN albuterol sulfate 90 mcg/actuation (ProAir HFA) 2 puffs inhalation Q4-6H PRN 90 days azelastine intranasal PRN betamethasone dipropionate 0.05% 1 appl topical BID PRN betamethasone dipropionate 0.05% 1 appl topical BID budesonide-formoterol 160-4.5 mcg/actuation 2 puffs PO BID 90 days NS ipratropium-albuterol 0.5 mg-3 mg(2.5 mg base)/3 mL 3 mL inhalation QID lisinopril 2.5 mg (1/2 x 5 mg) PO DAILY metoprolol succinate ER 100 mg (2 x 50 mg) PO DAILY multivitamin (Daily Multi-Vitamin tablet) 1 tab PO DAILY nebulizers To use every 4 hours nicotine apply 1-21 mg NICOTINE PATCH daily for 28 days; follow with 1-14 mg PATCH daily for 14 days, then 1-7mg PATCH daily for 14 days transdermal 2 months Oxygen Home Use As directed spironolactone 12.5 mg (1/2 x 25 mg) PO DAILY warfarin 5 mg See Protocol PO DAILY Nursing Note INR 3.4?? out of therapeutic range Medications and supplements reviewed Patient status: Receives meals on wheels daily for 1 meal, likes to have peanut butter in the evening, will keep it in his diet Medications or supplements: no changes Diet: good appetite Denies any signs and symptoms of bleeding or clotting or unusual bruising Bleeding, bruising, clotting discussed Nutritional guidance given: discussed what foods raise and lower the INR and put on his dosing schedule Dose: lower to 2.5mg x 2 days/ 5mg x 5 days F/U INR Date : 2 weeks?? Patient verbalizing understanding of instructions given. Anti-Coag Initial Assessment Social Hx Patient Tobacco Use Status: Former Tobacco user Tobacco use type: Cigarette Smoking packs per day: 0.5 alcohol intake: current Alcohol intake frequency: other Cardiovascular Hx: HTN, CHF, Arrhythmias and Other Lung Disease HX: COPD and Other Blood Disorder Hx: Anemia GI Hx: Diverticulosis Neurological Hx: Other Cancer HX: No Psych. Illness/Depression: No Coding Level of Care Code Est Patient Level 1 Diagnoses Current use of anticoagulant therapy Z79.01 Results AMB INR Fingerstick AMB INR Fingerstick 3.4 Last Edit by Alem Baumann RN on 12/06/23 14:34 MANUAL ENTRY Assessment & Plan Assessment & Plan (1) Current use of anticoagulant therapy: Code(s): Z79.01 - meterman (current) use of anticoagulants Category: Medical
[2023-12-07 09:10] LABS: Prothrombin Time Whole Bld POC 40.4 sec (11.1-13.5); ~PT, ~INR - Anti Coag Clinic 3.4 (0.9-1.1)
== END 2023-12-06 14:44 | disposition home or self-care (01) ==
LOC: HO.ACS 13:48
PROVIDERS: PCP Internal Medicine; Visit Provider Internal Medicine
DX: Z79.01 Long term (current) use of anticoagulants (principal)

== ENCOUNTER 2023-12-20 13:03 | Outpatient (AMB) | payer MEDICARE, SELFPAY ==
[2023-12-20 13:11] LABS: Prothrombin Time Whole Bld POC 40.3 sec (11.1-13.5); ~PT, ~INR - Anti Coag Clinic 3.4 (0.9-1.1)
--- NOTE | 2023-12-20 13:18 | MHC.OFFVISCO ---
Intake Intake Visit Reasons: Anticoagulation Allergies head and shoulders shampoo Adverse Reaction (Severe, Uncoded 12/20/23 13:07) burn Medication List - Last Reconciled 12/20/23 by Jerilyn Streeter RN albuterol sulfate 2.5 mg (3 mL) inhalation Q4-6H PRN albuterol sulfate 90 mcg/actuation (ProAir HFA) 2 puffs inhalation Q4-6H PRN 90 days azelastine intranasal PRN betamethasone dipropionate 0.05% 1 appl topical BID PRN betamethasone dipropionate 0.05% 1 appl topical BID budesonide-formoterol 160-4.5 mcg/actuation 2 puffs PO BID 90 days NS ipratropium-albuterol 0.5 mg-3 mg(2.5 mg base)/3 mL 3 mL inhalation QID lisinopril 2.5 mg (1/2 x 5 mg) PO DAILY metoprolol succinate ER 100 mg (2 x 50 mg) PO DAILY multivitamin (Daily Multi-Vitamin tablet) 1 tab PO DAILY nebulizers To use every 4 hours nicotine apply 1-21 mg NICOTINE PATCH daily for 28 days; follow with 1-14 mg PATCH daily for 14 days, then 1-7mg PATCH daily for 14 days transdermal 2 months Oxygen Home Use As directed spironolactone 12.5 mg (1/2 x 25 mg) PO DAILY warfarin 5 mg See Protocol PO DAILY Nursing Note INR 3.4?out of therapeutic range of 2-3 Medications and supplements reviewed Patient status: no changes Medications or supplements: no changes Diet: usual diet for pt Denies any signs and symptoms of bleeding or clotting or unusual bruising Bleeding, bruising, clotting discussed Nutritional guidance given: to have a serving of greens today. food list reviewed. Dose: pt took today's dose already. Will decrease tomorrow's dose to 2.5mg (5mg) then to resume usual dose of 5mg X 5 days and 2.5mg X 2 days F/U INR Date : 12/31/23?? Patient verbalizing understanding of instructions given. Anti-Coag Initial Assessment Social Hx Patient Tobacco Use Status: Former Tobacco user Tobacco use type: Cigarette Smoking packs per day: 0.5 alcohol intake: current Alcohol intake frequency: other Cardiovascular Hx: HTN, CHF, Arrhythmias and Other Lung Disease HX: COPD and Other Blood Disorder Hx: Anemia GI Hx: Diverticulosis Neurological Hx: Other Cancer HX: No Psych. Illness/Depression: No Coding Level of Care Code Est Patient Level 1 Diagnoses Current use of anticoagulant therapy Z79.01 Assessment & Plan Assessment & Plan (1) Current use of anticoagulant therapy: Code(s): Z79.01 - care home (current) use of anticoagulants Category: Medical
== END 2023-12-20 13:24 | disposition home or self-care (01) ==
LOC: HO.ACS 13:03
PROVIDERS: PCP Internal Medicine; Visit Provider Internal Medicine
DX: Z79.01 Long term (current) use of anticoagulants (principal)

== ENCOUNTER → 2023-12-20 13:03 | Outpatient (BNVA) | payer MEDICARE, SELFPAY | PROVIDERS: PCP Internal Medicine; Visit Provider Internal Medicine | DX: I48.0 Paroxysmal atrial fibrillation (principal); Z51.81 Encounter for therapeutic drug level monitoring; Z79.01 Long term (current) use of anticoagulants; J44.9 Chronic obstructive pulmonary disease, unspecified; J96.91 Respiratory failure, unspecified with hypoxia; R91.8 Other nonspecific abnormal finding of lung field | CPT/HCPCS: 85610; 99211; 99212 ==

== ENCOUNTER 2023-12-20 13:19 | Outpatient (AMB) | payer MEDICARE, SELFPAY ==
--- NOTE | 2023-12-20 13:29 | MHC.OFFVIS ---
Vital Signs 12/20/23 13:34 Height 5 ft 8 in Weight 195 lb 1.745 oz BMI 29.7 BP 104/60 Blood Pressure Location Lt brachial Pulse 94 Pulse Source Pulse Oximeter Pulse Oximetry (%) 92 Oxygen Delivery Method Nasal Cannula Oxygen Flow Rate 3 Intake Visit Reasons: COPD Intake Note: pt is here for follow up and states he has a question on generic symbicort, and he is feeling okay. Utilization Review Specialist Required: No Allergies head and shoulders shampoo Adverse Reaction (Severe, Uncoded 12/20/23 13:45) burn Medication List - Last Reconciled 12/20/23 by Rey August MD albuterol sulfate 2.5 mg (3 mL) inhalation Q4-6H PRN albuterol sulfate 90 mcg/actuation (ProAir HFA) 2 puffs inhalation Q4-6H PRN 90 days azelastine intranasal PRN betamethasone dipropionate 0.05% 1 appl topical BID PRN betamethasone dipropionate 0.05% 1 appl topical BID budesonide-formoterol 160-4.5 mcg/actuation 2 puffs PO BID 90 days NS ipratropium-albuterol 0.5 mg-3 mg(2.5 mg base)/3 mL 3 mL inhalation QID lisinopril 2.5 mg (1/2 x 5 mg) PO DAILY metoprolol succinate ER 100 mg (2 x 50 mg) PO DAILY multivitamin (Daily Multi-Vitamin tablet) 1 tab PO DAILY nebulizers To use every 4 hours nicotine apply 1-21 mg NICOTINE PATCH daily for 28 days; follow with 1-14 mg PATCH daily for 14 days, then 1-7mg PATCH daily for 14 days transdermal 2 months Oxygen Home Use As directed spironolactone 12.5 mg (1/2 x 25 mg) PO DAILY warfarin 5 mg See Protocol PO DAILY Do you need a note to return to daycare/school/sports/work: No HPI HPI COPD: Details: 73 YEARS OLD GENTLEMAN A CASE OF ADVANCED CHRONIC OBSTRUCTIVE PULMONARY DISEASE WITH HYPOXEMIC RESPIRATORY FAILURE, .COMES FOR FOLLOW-UP AFTER 2 MONTHS CLAIMS THAT HE HAS NOT SMOKED FOR THE LAST 7 DAYS, AND IS TRYING TO RESIST GOING BACK TO SMOKING. OF COURSE HE IS GETTING SOMEWHAT MORE ANXIOUS AND JITTERY, BREATHING IS HOLDING PRETTY STABLE. HE DOES HAVE INTERMITTENT COUGH WITHOUT MUCH MUCUS PRODUCTION. HE IS SHORT OF BREATH ON MINIMAL EFFORT. USES OXYGEN THROUGHOUT DAY AND NIGHT 2 L/MINUTE AT REST AND 3 L/MINUTE WHEN OUTDOORS.. HE IS SOMEWHAT CONFUSED ABOUT THE INHALER BUDESONIDE, WHICH IS NOW IN THE GENERIC FORM. AND ALSO ABOUT USING THE NEBULIZER, SOMETIME ENDS UP USING TOO MUCH. 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 Mother No problems noted. Brother Esophageal cancer Social History Household Members: Children [facility] Do you presently have visiting nurse or other home services: Yes ([facility]) Alcohol intake: current Alcohol intake frequency: other Comment: no telesitter available at this time Patient Tobacco Use Status: Former Tobacco user Tobacco use type: Cigarette Years Smoked: (onset 18yo, 1-1.5ppd x 53yrs, 65pyh - now 1cig/day) e-Cigarette/Vaping Use: Never Used Second Hand Smoke Exposure: Yes Advance Directives Date on File: 07/01/20 service: No Current occupational status: retired Current occupation: RETIRED Current occupational exposures/hazards: No Cognitive needs: Yes (walker) Hearing needs: No Vision needs: No Review of Systems Const All systems reviewed & are unremarkable except as noted in HPI and below Eyes Reports loss of vision (HE IS BLIND IN RIGHT EYE) ENT Reports no additional complaints Card Denies chest pain, Reports irregular heart rhythm (ATRIAL FIBRILLATION) and Denies leg edema Resp Reports as per HPI GI Reports no additional complaints Reports no additional complaints Musc Reports no additional complaints Skin/Breast Reports system reviewed and no additional complaints, except as documented Neuro Reports no additional complaints and Reports loss of vision (HE IS BLIND IN RIGHT EYE) Psych Reports no additional complaints Physical Exam Vital Signs: Last Vital Signs Pulse 94 12/20/23 13:34 BP 104/60 12/20/23 13:34 Pulse Ox 92 12/20/23 13:34 Oxygen Delivery Method Nasal Cannula 12/20/23 13:34 Oxygen Flow Rate 3 12/20/23 13:34 BMI result Body Mass Index 29.7 Const General: comfortable, no acute distress, alert and awake Orientation/consciousness: patient oriented x3 HEENT Head: Yes normal to inspection General nose exam: No nasal polyps present and No nasal discharge present Face and sinus: Yes sinuses nontender Mouth: oropharynx normal Throat: Yes posterior oropharynx normal Eyes General: appearance normal, both eyes and all related structures Visual Kaplan: visual kaplan abnormal by confrontation (Blind in right eye) Neck Neck: Yes normal visual inspection, Yes no lymphadenopathy, Yes trachea midline and Yes no JVD Thyroid: Thyroid normal Chest Chest palpation & inspection: normal inspection of the chest, normal palpation of entire chest wall and no tenderness Resp Other: Percussion note is hyper-resonant, breath sounds are very distant with prolonged expiratory phase. Has scattered wheezes on both sides especially over the lower lobes. Cardio Palpation: normal PMI Rate: regular rate Rhythm: regular rhythm Heart sounds: no gallops and no murmurs GI Palpation (GI): Soft to palpation, nontender, No hepatosplenomegaly present and no masses Auscultation: normal bowel sounds Back/Spine/Pelvis Thoracic/Lumbar Spine: thoracic and lumbar spine normal to inspection Skin General skin exam: no rashes or lesions noted Neuro General: patient oriented x3 and no focal motor deficits Cranial nerves: Yes CN's II-XII intact bilaterally Extrem General: Yes normal to inspection, Yes no clubbing, cyanosis or edema and Yes no calf tenderness Psych Appearance: grossly normal and well kempt Speech and movement: Normal speech and movement present Assessment & Plan Assessment & Plan (1) COPD (chronic obstructive pulmonary disease): Comment: PATIENT HAS ADVANCED CHRONIC OBSTRUCTIVE PULMONARY DISEASE. ( FEV1=0.45 L FVC= 0.8 L 20 % of normal ) CLINICALLY HOLDING STABLE ON HIS CURRENT MEDICAL REGIMEN. Code(s): J44.9 - Chronic obstructive pulmonary disease, unspecified Category: Medical Qualifiers: COPD type: unspecified COPD Qualified Code(s): J44.9 - Chronic obstructive pulmonary disease, unspecified Plan: BUDESONIDE-FORMOTEROL 160-4.5 2 PUFFS B.I.D.. IPRATROPIUM-ALBUTEROL SOLUTION IN THE NEBULIZER Q 6 HOURS P.R.N. ( NO MORE THAN 4 TIMES A DAY) PROAIR HFA 2 PUFFS Q 6 HOURS P.R.N. WHEN OUTDOORS. (2) Respiratory failure with hypoxia: Comment: Patient does have nocturnal as well as daytime hypoxemia. Code(s): J96.91 - Respiratory failure, unspecified with hypoxia Category: Medical Plan: O2 2 L/MINUTE AT HOME DURING THE DAYTIME AND WHILE SLEEPING. O2 VIA POC 3 L/MINUTE WHEN OUTDOORS . (3) Multiple pulmonary nodules: Comment: RECENT LDCT. SHOWS MULTIPLE PULMONARY NODULES UNCHANGED FROM BEFORE. IN ADDITION SHOWING INCREASED BRONCHIAL WALL THICKENING AND PERIBRONCHIAL . OPACITIES. Code(s): R91.8 - Other nonspecific abnormal finding of lung field Category: Medical Plan: PATIENT ENCOURAGED TO STAY IN ANNUAL LUNG SCREENING PROGRAM Coding Level of Care Code Est Pt Level 3 (05433) Diagnoses Chronic obstructive pulmonary disease, unspecified COPD type J44.9 COPD type: unspecified COPD Respiratory failure with hypoxia J96.91 Multiple pulmonary nodules R91.8
[2023-12-20 13:34] VITALS: BP 104/60; PULSE 94; O2SAT 92; BMI 29.7
== END 2023-12-20 13:47 | disposition home or self-care (01) ==
PROVIDERS: PCP Internal Medicine; Referring Provider Internal Medicine; Visit Provider Internal Medicine
DX: J44.9 Chronic obstructive pulmonary disease, unspecified (principal); J96.91 Respiratory failure, unspecified with hypoxia; R91.8 Other nonspecific abnormal finding of lung field
CPT/HCPCS: 99213

== ENCOUNTER 2023-12-31 09:35 | Outpatient (AMB) | payer MEDICARE, SELFPAY ==
--- NOTE | 2023-12-31 09:46 | MHC.OFFVISCO ---
Intake Intake Visit Reasons: Anticoagulation Allergies head and shoulders shampoo Adverse Reaction (Severe, Uncoded 12/31/23 09:42) burn Medication List - Last Reconciled 12/31/23 by Jada Bradshaw RN albuterol sulfate 2.5 mg (3 mL) inhalation Q4-6H PRN albuterol sulfate 90 mcg/actuation (ProAir HFA) 2 puffs inhalation Q4-6H PRN 90 days azelastine intranasal PRN betamethasone dipropionate 0.05% 1 appl topical BID PRN betamethasone dipropionate 0.05% 1 appl topical BID budesonide-formoterol 160-4.5 mcg/actuation 2 puffs PO BID 90 days NS ipratropium-albuterol 0.5 mg-3 mg(2.5 mg base)/3 mL 3 mL inhalation QID lisinopril 2.5 mg (1/2 x 5 mg) PO DAILY metoprolol succinate ER 100 mg (2 x 50 mg) PO DAILY multivitamin (Daily Multi-Vitamin tablet) 1 tab PO DAILY nebulizers To use every 4 hours nicotine apply 1-21 mg NICOTINE PATCH daily for 28 days; follow with 1-14 mg PATCH daily for 14 days, then 1-7mg PATCH daily for 14 days transdermal 2 months Oxygen Home Use As directed spironolactone 12.5 mg (1/2 x 25 mg) PO DAILY warfarin 5 mg See Protocol PO DAILY Nursing Note INR: 2.3- in therapeutic range of 2-3 Medications and supplements reviewed- no changes No changes in health, diet, medications, or supplements, Denies any signs and symptoms of bleeding or bruising or clotting. Bleeding, bruising, clotting discussed Nutritional guidance given Dose: 2.5mg x 2 5mg x 5 F/U INR: pt req 3 week f/u Patient verbalizes understanding of instructions given pt amb with walker and is on cont oxygen, has f/u pcp appt today Anti-Coag Initial Assessment Social Hx Patient Tobacco Use Status: Former Tobacco user Tobacco use type: Cigarette alcohol intake: current Alcohol intake frequency: other Cardiovascular Hx: HTN, CHF, Arrhythmias and Other Lung Disease HX: COPD and Other Blood Disorder Hx: Anemia GI Hx: Diverticulosis Neurological Hx: Other Cancer HX: No Psych. 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
[2023-12-31 09:47] LABS: Prothrombin Time Whole Bld POC 27.2 sec (11.1-13.5); ~PT, ~INR - Anti Coag Clinic 2.3 (0.9-1.1)
== END 2023-12-31 09:54 | disposition home or self-care (01) ==
LOC: HO.ACS 09:35
PROVIDERS: PCP Internal Medicine; Visit Provider Internal Medicine
DX: Z79.01 Long term (current) use of anticoagulants (principal)

== ENCOUNTER → 2023-12-31 09:35 | Outpatient (BNVA) | payer MEDICARE, SELFPAY | PROVIDERS: PCP Internal Medicine; Visit Provider Internal Medicine | DX: I48.0 Paroxysmal atrial fibrillation (principal); Z79.01 Long term (current) use of anticoagulants; Z51.81 Encounter for therapeutic drug level monitoring | CPT/HCPCS: 85610; 99211 ==

== ENCOUNTER 2023-12-31 10:14 | Outpatient (AMB) | payer MEDICARE, SELFPAY ==
--- NOTE | 2023-12-31 10:20 | MHC.PC.OV ---
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 Accountant Required: No Accompanied by: Self / Same As Patient Allergies head and shoulders shampoo Adverse Reaction (Severe, Uncoded 12/31/23 10:29) burn Medication List - Last Reconciled 12/31/23 by Charbel Poe MD albuterol sulfate 2.5 mg (3 mL) inhalation Q4-6H PRN albuterol sulfate 90 mcg/actuation (ProAir HFA) 2 puffs inhalation Q4-6H PRN 90 days azelastine intranasal PRN betamethasone dipropionate 0.05% 1 appl topical BID PRN betamethasone dipropionate 0.05% 1 appl topical BID budesonide-formoterol 160-4.5 mcg/actuation 2 puffs PO BID 90 days NS ipratropium-albuterol 0.5 mg-3 mg(2.5 mg base)/3 mL 3 mL inhalation QID lisinopril 2.5 mg (1/2 x 5 mg) PO DAILY metoprolol succinate ER 100 mg (2 x 50 mg) PO DAILY multivitamin (Daily Multi-Vitamin tablet) 1 tab PO DAILY nebulizers To use every 4 hours nicotine apply 1-21 mg NICOTINE PATCH daily for 28 days; follow with 1-14 mg PATCH daily for 14 days, then 1-7mg PATCH daily for 14 days transdermal 2 months Oxygen Home Use As directed spironolactone 12.5 mg (1/2 x 25 mg) PO DAILY warfarin 5 mg See Protocol PO DAILY Tobacco use date assessed: 06/28/23 Fall risk assessment: No Falls in past year Last assessed Fall Risk: 12/31/23 Dental Screening Dental Screen Date: 06/28/23 HPI Foot Swelling-pt did not want sooner HPI Details had some mild bilat ankle edema a week ago which has since resolved' no increase in dyspnea or chest pain PFSH Medical History Hand dermatitis Respiratory failure with hypoxia Chronic bronchitis Personal history of nicotine dependence Hypertension 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 Mother No problems noted. Brother Esophageal cancer Social History Household Members: Children [facility] Do you presently have visiting nurse or other home services: Yes ([facility]) Alcohol intake: current Alcohol intake frequency: other Comment: no telesitter available at this time Patient Tobacco Use Status: Former Tobacco user Tobacco use type: Cigarette Years Smoked: (onset 18yo, 1-1.5ppd x 53yrs, 65pyh - now 1cig/day) e-Cigarette/Vaping Use: Never Used Second Hand Smoke Exposure: Yes Advance Directives Date on File: 07/01/20 service: No Current occupational status: retired Current occupation: RETIRED Current occupational exposures/hazards: No Cognitive needs: Yes (walker) Hearing needs: No Vision needs: No Questionnaire Thrive Questionnaire Date Thrive assessed: 06/28/23 ALEJO-7 AMB Questionnaire ALEJO-7 Date ALEJO - 7 assessed: 06/28/23 Source: Developed by Drs. Paramjit Wade, Brooke Browne, Max Roberson and colleagues, with an educational seble from [employer]. Review of Systems Const Denies chills, Denies headache(s) and Denies weight loss ENT Denies headache(s) Card Denies chest pain, Denies syncope, Denies irregular heart rhythm and Denies dyspnea Resp Denies chest congestion, Denies cough and Denies dyspnea GI Denies abdominal pain, Denies change in stool character, Denies nausea and Denies vomiting Musc Denies deformity and Denies joint swelling Neuro Denies syncope and Denies headache(s) Physical exam (Primary Care) Vital Signs: Last Vital Signs Pulse 103 H 12/31/23 10:25 BP 110/62 12/31/23 10:25 Pulse Ox 93 12/31/23 10:25 Oxygen Delivery Method Nasal Cannula 12/31/23 10:25 Oxygen Flow Rate 3 12/31/23 10:25 BMI result Body Mass Index 29.9 Tobacco/Smoking Status: Tobacco use Status Tobacco use date assessed 06/28/23 12/31/23 10:20 Patient Tobacco Use Status Former Tobacco user 12/31/23 10:20 Tobacco use type Cigarette 12/31/23 10:20 e-Cigarette/Vaping Use Never Used 12/31/23 10:20 Thrive Assessment: Date of Thrive Assessment Date Thrive assessed 06/28/23 12/31/23 10:20 Const General: cooperative, comfortable, no acute distress and alert Neck Neck: Yes no lymphadenopathy Thyroid: Thyroid normal Resp Effort & Inspection: normal respiratory effort Auscultation: clear to auscultation bilaterally Percussion: percussion normal Cardio Jugular venous distension: no JVD Palpation: normal PMI Rate: regular rate Rhythm: regular rhythm Heart sounds: S1 normal heart sound present and S2 normal heart sound present GI Inspection: Yes normal to inspection Palpation (GI): No hepatosplenomegaly present Skin General skin exam: no rashes or lesions noted Extrem General: Yes no clubbing, cyanosis or edema Results AMB INR Fingerstick AMB INR Fingerstick 2.3 Last Edit by Jada Bradshaw RN on 12/31/23 09:49 Assessment and Plan Assessment & Plan (1) Ankle edema: Code(s): M25.473 - Effusion, unspecified ankle Plan: resolved Coding Level of Care Code Est Pt Level 3 (27465) Diagnoses Ankle edema M25.473
[2023-12-31 10:25] VITALS: BP 110/62; PULSE 103; O2SAT 93; BMI 29.9
== END 2023-12-31 12:54 | disposition home or self-care (01) ==
PROVIDERS: PCP Internal Medicine; Visit Provider Internal Medicine
DX: M25.473 Effusion, unspecified ankle (principal)
CPT/HCPCS: 99213

== ENCOUNTER → 2024-01-10 23:59 | Outpatient (BNV) | payer MEDICARE, SELFPAY ==
--- NOTE | 2024-01-13 12:18 | MHC.OFFVIS ---
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 Mother No problems noted. Brother Esophageal cancer Social History Household Members: Children [facility] Do you presently have visiting nurse or other home services: Yes ([facility]) Alcohol intake: current Alcohol intake frequency: other Comment: no telesitter available at this time Patient Tobacco Use Status: Former Tobacco user Tobacco use type: Cigarette Years Smoked: (onset 18yo, 1-1.5ppd x 53yrs, 65pyh - now 1cig/day) e-Cigarette/Vaping Use: Never Used Second Hand Smoke Exposure: Yes Advance Directives Date on File: 07/01/20 service: No Current occupational status: retired Current occupation: RETIRED Current occupational exposures/hazards: No Cognitive needs: Yes (walker) Hearing needs: No Vision needs: No Office Procedures Cardiac Device Check Cardiac Device Check Details: Date of service- 01/10/2024 ; Battery life 70%; normal lead parameters; AP 1%; MONITORING AND EVALUATION ADVISOR 99%; no significant arrhythmias. Overall normal device function. [id number] Cardiac Device Interrogation, pacemaker Procedure code (CPT) selection complete Assessment & Plan Assessment & Plan (1) Paroxysmal atrial fibrillation: Code(s): I48.0 - Paroxysmal atrial fibrillation Category: Medical Plan x Coding Level of Care Code Procedure Only Diagnoses Paroxysmal atrial fibrillation I48.0 CPT Codes Cardiac Device Check - Cardiac Device 12: [id number] Cardiac Device Interrogation, pacemaker ([id number])
== END ==
PROVIDERS: PCP Internal Medicine; Visit Provider Internal Medicine
DX: I48.0 Paroxysmal atrial fibrillation (principal); Z95.0 Presence of cardiac pacemaker
CPT/HCPCS: 93294

== ENCOUNTER 2024-02-21 13:01 | Outpatient (AMB) | payer MEDICARE, SELFPAY ==
--- NOTE | 2024-02-21 13:12 | MHC.OFFVISCO ---
Intake Intake Visit Reasons: Anticoagulation Allergies head and shoulders shampoo Adverse Reaction (Severe, Uncoded 02/21/24 13:06) burn Medication List - Last Reconciled 02/21/24 by Jada Bradshaw RN albuterol sulfate 2.5 mg (3 mL) inhalation Q4-6H PRN albuterol sulfate 90 mcg/actuation (ProAir HFA) 2 puffs inhalation Q4-6H PRN 90 days azelastine intranasal PRN betamethasone dipropionate 0.05% 1 appl topical BID PRN betamethasone dipropionate 0.05% 1 appl topical BID budesonide-formoterol 160-4.5 mcg/actuation 2 puffs PO BID 90 days NS ipratropium-albuterol 0.5 mg-3 mg(2.5 mg base)/3 mL 3 mL inhalation QID lisinopril 2.5 mg (1/2 x 5 mg) PO DAILY metoprolol succinate ER 100 mg (2 x 50 mg) PO DAILY multivitamin (Daily Multi-Vitamin tablet) 1 tab PO DAILY nebulizers To use every 4 hours nicotine apply 1-21 mg NICOTINE PATCH daily for 28 days; follow with 1-14 mg PATCH daily for 14 days, then 1-7mg PATCH daily for 14 days transdermal 2 months Oxygen Home Use As directed spironolactone 12.5 mg (1/2 x 25 mg) PO DAILY warfarin 5 mg See Protocol PO DAILY Nursing Note INR: 2.1- in therapeutic range of 2-3 Medications and supplements reviewed- pt now on nicotine patch 7mg/24 hr, has not smoked in 9 days- aware this may raise inr No changes in health, diet, medications, or supplements, Denies any signs and symptoms of bleeding or bruising or clotting. Bleeding, bruising, clotting discussed Nutritional guidance given Dose: 2.5mg x 2, 5mg x 5 pt script now jantoven F/U INR: 2 week recommended, pt ref earlier appt than 4 weeks Patient verbalizes understanding of instructions given pt states no etoh as well, amb with walker, on cont oxygen- has pulmonary appt today Anti-Coag Initial Assessment Social Hx Patient Tobacco Use Status: Former Tobacco user Tobacco use type: Cigarette alcohol intake: current Alcohol intake frequency: other Cardiovascular Hx: HTN, CHF, Arrhythmias and Other Lung Disease HX: COPD and Other Blood Disorder Hx: Anemia GI Hx: Diverticulosis Neurological Hx: Other Cancer HX: No Psych. Illness/Depression: No Coding Level of Care Code Est Patient Level 1 Diagnoses Current use of anticoagulant therapy Z79.01 Assessment & Plan Assessment & Plan (1) Current use of anticoagulant therapy: Code(s): Z79.01 - [facility] (current) use of anticoagulants Category: Medical
[2024-02-21 13:13] LABS: Prothrombin Time Whole Bld POC 25.7 sec (11.1-13.5); ~PT, ~INR - Anti Coag Clinic 2.1 (0.9-1.1)
== END 2024-02-21 13:21 | disposition home or self-care (01) ==
LOC: HO.ACS 13:01
PROVIDERS: PCP Internal Medicine; Visit Provider Internal Medicine
DX: Z79.01 Long term (current) use of anticoagulants (principal)

== ENCOUNTER → 2024-02-21 13:01 | Outpatient (BNVA) | payer MEDICARE, SELFPAY | PROVIDERS: PCP Internal Medicine; Visit Provider Internal Medicine | DX: J44.9 Chronic obstructive pulmonary disease, unspecified (principal); J96.91 Respiratory failure, unspecified with hypoxia; R91.8 Other nonspecific abnormal finding of lung field; I48.0 Paroxysmal atrial fibrillation; Z79.01 Long term (current) use of anticoagulants; Z51.81 Encounter for therapeutic drug level monitoring | CPT/HCPCS: 85610; 99211; 99212 ==

== ENCOUNTER 2024-02-21 13:21 | Outpatient (AMB) | payer MEDICARE, SELFPAY ==
[2024-02-21 13:36] VITALS: BP 120/62; PULSE 75; O2SAT 93; BMI 30.8
--- NOTE | 2024-02-21 13:36 | A.OFFVIS_ITS ---
Vital Signs 02/21/24 13:36 Height 5 ft 8 in Weight 202 lb 13.204 oz BMI 30.8 BP 120/62 Blood Pressure Location Lt brachial Pulse 75 Pulse Source Pulse Oximeter Pulse Oximetry (%) 93 Oxygen Delivery Method Nasal Cannula Oxygen Flow Rate 2 Intake Visit Reasons: COPD Intake Note: pt is here for follow up and breathing is okay, needs 90 day supply printed and faxed to Erik, he would like the 100, foracort formoterol fum/budesonide inhaler Math Specialist Required: No Allergies head and shoulders shampoo Adverse Reaction (Severe, Uncoded 02/21/24 13:59) burn Medication List - Last Reconciled 02/21/24 by Rey August MD albuterol sulfate 2.5 mg (3 mL) inhalation Q4-6H PRN albuterol sulfate 90 mcg/actuation (ProAir HFA) 2 puffs inhalation Q4-6H PRN 90 days azelastine intranasal PRN betamethasone dipropionate 0.05% 1 appl topical BID PRN betamethasone dipropionate 0.05% 1 appl topical BID budesonide-formoterol 160-4.5 mcg/actuation 2 puffs PO BID 90 days NS ipratropium-albuterol 0.5 mg-3 mg(2.5 mg base)/3 mL 3 mL inhalation QID lisinopril 2.5 mg (1/2 x 5 mg) PO DAILY metoprolol succinate ER 100 mg (2 x 50 mg) PO DAILY multivitamin (Daily Multi-Vitamin tablet) 1 tab PO DAILY nebulizers To use every 4 hours nicotine apply 1-21 mg NICOTINE PATCH daily for 28 days; follow with 1-14 mg PATCH daily for 14 days, then 1-7mg PATCH daily for 14 days transdermal 2 months Oxygen Home Use As directed spironolactone 12.5 mg (1/2 x 25 mg) PO DAILY warfarin 5 mg See Protocol PO DAILY Do you need a note to return to daycare/school/sports/work: No HPI HPI COPD: Details: THIS 73 YEARS OLD GENTLEMAN IS HERE FOR FOLLOW-UP AFTER 2 MONTHS. HE HAS ADVANCED CHRONIC OBSTRUCTIVE PULMONARY DISEASE, WITH HYPOXEMIC RESPIRATORY FAILURE. HE IS USING O2 24 HOURS A DAY. HE DOES USE CUBITAL AUNT OF SYMBICORT, BUT IS GENERIC CALLED FORMOTEROL- BUDESONIDE -100 HE IS USING NICOTINE PATCHES 14 MG DAILY. HAS NOT SMOKED IN THE LAST 9 DAYS, AND WANTS TO CONTINUE USING THE NICOTINE PATCH WITH GOOD RESOLVED WHO STAY AWAY FROM CIGARETTES. HE HAS HIS USUAL INTERMITTENT COUGH MOSTLY NONPRODUCTIVE, HE GETS SHORT OF BREATH ON WALKING , USES WALKER, AND HE DOES USE PORTABLE UNIT WHEN HE WALKS AROUND AT 2 L/MINUTE. 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 Mother No problems noted. Brother Esophageal cancer Social History [facility]hold Members: [facility] Do you presently have visiting nurse or other home services: Yes ([facility]) Alcohol intake: current Alcohol intake frequency: other Comment: no telesitter available at this time Patient Tobacco Use Status: Former Tobacco user Tobacco use type: Cigarette Years Smoked: (onset 18yo, 1-1.5ppd x 53yrs, 65pyh - now 1cig/day) e-Cigarette/Vaping Use: Never Used Second Hand Smoke Exposure: Yes Advance Directives Date on File: 07/01/20 service: No Current occupational status: retired Current occupation: RETIRED Current occupational exposures/hazards: No Cognitive needs: Yes (walker) Hearing needs: No Vision needs: No Review of Systems Const All systems reviewed & are unremarkable except as noted in HPI and below Eyes Reports loss of vision (HE IS BLIND IN RIGHT EYE) ENT Reports no additional complaints Card Denies chest pain, Reports irregular heart rhythm (ATRIAL FIBRILLATION) and Denies leg edema Resp Reports as per HPI GI Reports no additional complaints Reports no additional complaints Musc Reports no additional complaints Skin/Breast Reports system reviewed and no additional complaints, except as documented Neuro Reports no additional complaints and Reports loss of vision (HE IS BLIND IN RIGHT EYE) Psych Reports no additional complaints Physical Exam Vital Signs: Last Vital Signs Pulse 75 02/21/24 13:36 BP 120/62 02/21/24 13:36 Pulse Ox 93 02/21/24 13:36 Oxygen Delivery Method Nasal Cannula 02/21/24 13:36 Oxygen Flow Rate 2 02/21/24 13:36 BMI result Body Mass Index 30.8 Const General: comfortable, no acute distress, alert and awake Orientation/consciousness: patient oriented x3 HEENT Head: Yes normal to inspection General nose exam: No nasal polyps present and No nasal discharge present Face and sinus: Yes sinuses nontender Mouth: oropharynx normal Throat: Yes posterior oropharynx normal Eyes General: appearance normal, both eyes and all related structures Visual Kaplan: visual kaplan abnormal by confrontation (Blind in right eye) Neck Neck: Yes normal visual inspection, Yes no lymphadenopathy, Yes trachea midline and Yes no JVD Thyroid: Thyroid normal Chest Chest palpation & inspection: normal inspection of the chest, normal palpation of entire chest wall and no tenderness Resp Other: Percussion note is hyper-resonant, breath sounds are very distant with prolonged expiratory phase. Has scattered wheezes on both sides especially over the lower lobes. Cardio Palpation: normal PMI Rate: regular rate Rhythm: regular rhythm Heart sounds: no gallops and no murmurs GI Palpation (GI): Soft to palpation, nontender, No hepatosplenomegaly present and no masses Auscultation: normal bowel sounds Back/Spine/Pelvis Thoracic/Lumbar Spine: thoracic and lumbar spine normal to inspection Skin General skin exam: no rashes or lesions noted Neuro General: patient oriented x3 and no focal motor deficits Cranial nerves: Yes CN's II-XII intact bilaterally Extrem General: Yes normal to inspection, Yes no clubbing, cyanosis or edema and Yes no calf tenderness Psych Appearance: grossly normal and well kempt Speech and movement: Normal speech and movement present Assessment & Plan Assessment & Plan (1) COPD (chronic obstructive pulmonary disease): Comment: PATIENT HAS ADVANCED CHRONIC OBSTRUCTIVE PULMONARY DISEASE. ( FEV1=0.45 L FVC= 0.8 L 20 % of normal ) CLINICALLY HOLDING STABLE ON HIS CURRENT MEDICAL REGIMEN. Code(s): J44.9 - Chronic obstructive pulmonary disease, unspecified Category: Medical Qualifiers: COPD type: unspecified COPD Qualified Code(s): J44.9 - Chronic obstructive pulmonary disease, unspecified Plan: CONTINUE BUDESONIDE - FORMOTEROL 100-6 MCG 2 PUFFS B.I.D.. ALBUTEROL HFA 2 PUFFS Q 6 HOURS P.R.N. WHEN OUTDOORS AND ALBUTEROL SOLUTION IN THE NEBULIZER Q 6 HOURS P.R.N. WHEN AT HOME. IPRATROPIUM-ALBUTEROL 2.5 MG BASE IN THE NEBULIZER Q.I.D. (2) Respiratory failure with hypoxia: Comment: Patient does have nocturnal as well as daytime hypoxemia. Code(s): J96.91 - Respiratory failure, unspecified with hypoxia Category: Medical Plan: USE O2 2 L/MINUTE 24 HOURS A DAY (3) Multiple pulmonary nodules: Comment: RECENT LDCT. SHOWS MULTIPLE PULMONARY NODULES UN CHANGED FROM BEFORE. IN ADDITION SHOWING INCREASED BRONCHIAL WALL THICKENING AND PERIBRONCHIAL . OPACITIES. Code(s): R91.8 - Other nonspecific abnormal finding of lung field Category: Medical Plan: CONTINUE TO HAVE ANNUAL LUNG SCREENING PROGRAM Medications: New budesonide-formoterol 80-4.5 mcg/actuation 2 puffs inhalation BID 10.2 grams 3RF 90 days Coding Level of Care Code Est Pt Level 3 (58161) Diagnoses Chronic obstructive pulmonary disease, unspecified COPD type J44.9 COPD type: unspecified COPD Respiratory failure with hypoxia J96.91 Multiple pulmonary nodules R91.8
== END 2024-02-21 14:00 | disposition home or self-care (01) ==
PROVIDERS: PCP Internal Medicine; Visit Provider Internal Medicine
DX: J44.9 Chronic obstructive pulmonary disease, unspecified (principal); J96.91 Respiratory failure, unspecified with hypoxia; R91.8 Other nonspecific abnormal finding of lung field
CPT/HCPCS: 99213

== ENCOUNTER 2024-03-24 13:02 | Outpatient (AMB) | payer MEDICARE, SELFPAY ==
[2024-03-24 13:14] LABS: Prothrombin Time Whole Bld POC 38.6 sec (11.1-13.5); ~PT, ~INR - Anti Coag Clinic 3.2 (0.9-1.1)
--- NOTE | 2024-03-24 13:18 | MHC.OFFVISCO ---
Intake Intake Visit Reasons: Anticoagulation Allergies head and shoulders shampoo Adverse Reaction (Severe, Uncoded 03/24/24 13:08) burn Medication List - Last Reconciled 03/24/24 by Jerilyn Streeter RN albuterol sulfate 2.5 mg (3 mL) inhalation Q4-6H PRN albuterol sulfate 90 mcg/actuation (ProAir HFA) 2 puffs inhalation Q4-6H PRN 90 days azelastine intranasal PRN betamethasone dipropionate 0.05% 1 appl topical BID PRN betamethasone dipropionate 0.05% 1 appl topical BID budesonide-formoterol 80-4.5 mcg/actuation 2 puffs inhalation BID 90 days ipratropium-albuterol 0.5 mg-3 mg(2.5 mg base)/3 mL 3 mL inhalation QID lisinopril 2.5 mg (1/2 x 5 mg) PO DAILY metoprolol succinate ER 100 mg (2 x 50 mg) PO DAILY multivitamin (Daily Multi-Vitamin tablet) 1 tab PO DAILY nebulizers To use every 4 hours nicotine apply 1-21 mg NICOTINE PATCH daily for 28 days; follow with 1-14 mg PATCH daily for 14 days, then 1-7mg PATCH daily for 14 days transdermal 2 months nicotine 1 patch transdermal DAILY 28 days Oxygen Home Use As directed spironolactone 12.5 mg (1/2 x 25 mg) PO DAILY warfarin 5 mg See Protocol PO DAILY Nursing Note INR 3.2?out of therapeutic range of 2-3 Medications and supplements reviewed Patient status: had been ill w/exacerbation of COPD. Cx's appt 4 days ago but feels better today. States this happens every now and again. He did not see his provider and no new meds. Medications or supplements: no changes Diet: usual diet for pt Denies any signs and symptoms of bleeding or clotting or unusual bruising Bleeding, bruising, clotting discussed Nutritional guidance given: to have a serving of greens today Dose: 5mg X 5 days and 2.5mg X 2 days F/U INR Date : suggested 2 or 3 weeks but pt insisted on 4 weeks?? Patient verbalizing understanding of instructions given. Anti-Coag Initial Assessment Social Hx Patient Tobacco Use Status: Former Tobacco user Tobacco use type: Cigarette alcohol intake: current Alcohol intake frequency: other Cardiovascular Hx: HTN, CHF, Arrhythmias and Other Lung Disease HX: COPD and Other Blood Disorder Hx: Anemia GI Hx: Diverticulosis Neurological Hx: Other Cancer HX: No Psych. Illness/Depression: No Coding Level of Care Code Est Patient Level 1 Diagnoses Current use of anticoagulant therapy Z79.01 Assessment & Plan Assessment & Plan (1) Current use of anticoagulant therapy: Code(s): Z79.01 - USP (current) use of anticoagulants Category: Medical
== END 2024-03-24 13:22 | disposition home or self-care (01) ==
LOC: HO.ACS 13:02
PROVIDERS: PCP Internal Medicine; Visit Provider Internal Medicine
DX: Z79.01 Long term (current) use of anticoagulants (principal)

== ENCOUNTER → 2024-03-24 13:02 | Outpatient (BNVA) | payer MEDICARE, SELFPAY | PROVIDERS: PCP Internal Medicine; Visit Provider Internal Medicine | DX: I48.0 Paroxysmal atrial fibrillation (principal); Z79.01 Long term (current) use of anticoagulants; Z51.81 Encounter for therapeutic drug level monitoring | CPT/HCPCS: 85610; 99211 ==

== ENCOUNTER 2024-04-06 09:47 | Outpatient (AMB) | payer MEDICARE, SELFPAY ==
[2024-04-06 09:52] VITALS: BP 122/60; PULSE 99; O2SAT 92
--- NOTE | 2024-04-06 09:52 | MHC.PC.OV ---
Vital Signs 04/06/24 09:52 Height 5 ft 8 in Weight 197 lb BMI 30.0 BP 122/60 Blood Pressure Location Lt brachial Position Sitting Pulse 99 Pulse Source Pulse Oximeter Pulse Oximetry (%) 92 Oxygen Delivery Method Nasal Cannula Oxygen Flow Rate 3 Intake Visit Reasons: 3mth f/u Intake Note: Pt reports feeling out of breath today and had to use his inhaler. Gis Manager Required: No Accompanied by: Self / Same As Patient Allergies head and shoulders shampoo Adverse Reaction (Severe, Uncoded 04/06/24 09:53) burn Medication List - Last Reconciled 04/06/24 by Charbel Poe MD albuterol sulfate 2.5 mg (3 mL) inhalation Q4-6H PRN albuterol sulfate 90 mcg/actuation (ProAir HFA) 2 puffs inhalation Q4-6H PRN 90 days azelastine intranasal PRN betamethasone dipropionate 0.05% 1 appl topical BID PRN betamethasone dipropionate 0.05% 1 appl topical BID budesonide-formoterol 80-4.5 mcg/actuation 2 puffs inhalation BID 90 days ipratropium-albuterol 0.5 mg-3 mg(2.5 mg base)/3 mL 3 mL inhalation QID lisinopril 2.5 mg (1/2 x 5 mg) PO DAILY metoprolol succinate ER 100 mg (2 x 50 mg) PO DAILY multivitamin (Daily Multi-Vitamin tablet) 1 tab PO DAILY nebulizers To use every 4 hours nicotine apply 1-21 mg NICOTINE PATCH daily for 28 days; follow with 1-14 mg PATCH daily for 14 days, then 1-7mg PATCH daily for 14 days transdermal 2 months nicotine 1 patch transdermal DAILY 28 days Oxygen Home Use As directed spironolactone 12.5 mg (1/2 x 25 mg) PO DAILY warfarin 5 mg See Protocol PO DAILY Tobacco use date assessed: 06/28/23 Fall risk assessment: No Falls in past year Last assessed Fall Risk: 04/06/24 Dental Screening Dental Screen Date: 06/28/23 HPI 3mth f/u HPI Details COPD on )2; stable; sees pulmonary PFSH Medical History (Updated 04/06/24 @ 12:35 by Charbel Poe MD) Smoker Hand dermatitis Respiratory failure with hypoxia Chronic bronchitis Personal history of nicotine dependence Hypertension 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 Mother No problems noted. Brother Esophageal cancer Social History Household Members: Children [facility] Do you presently have visiting nurse or other home services: Yes ([facility]) Alcohol intake: current Alcohol intake frequency: other Comment: no telesitter available at this time Patient Tobacco Use Status: Former Tobacco user Tobacco use type: Cigarette Years Smoked: (onset 18yo, 1-1.5ppd x 53yrs, 65pyh - now 1cig/day) e-Cigarette/Vaping Use: Never Used Second Hand Smoke Exposure: Yes Advance Directives Date on File: 07/01/20 service: No Current occupational status: retired Current occupation: RETIRED Current occupational exposures/hazards: No Cognitive needs: Yes (walker) Hearing needs: No Vision needs: No Questionnaire Thrive Questionnaire Date Thrive assessed: 06/28/23 ALEJO-7 AMB Questionnaire ALEJO-7 Date ALEJO - 7 assessed: 06/28/23 Source: Developed by Drs. Paramjit Wade, Brooke Browne, Max Roberson and colleagues, with an educational seble from [employer]. Review of Systems Const Denies chills, Denies headache(s) and Denies weight loss ENT Denies headache(s) Card Denies chest pain, Denies syncope, Denies irregular heart rhythm and Denies dyspnea Resp Denies chest congestion, Denies cough and Denies dyspnea GI Denies abdominal pain, Denies change in stool character, Denies nausea and Denies vomiting Musc Denies deformity and Denies joint swelling Neuro Denies syncope and Denies headache(s) Physical exam (Primary Care) Vital Signs: Last Vital Signs Pulse 99 04/06/24 09:52 BP 122/60 04/06/24 09:52 Pulse Ox 92 04/06/24 09:52 Oxygen Delivery Method Nasal Cannula 04/06/24 09:52 Oxygen Flow Rate 3 04/06/24 09:52 BMI result Body Mass Index 30.0 Tobacco/Smoking Status: Tobacco use Status Tobacco use date assessed 06/28/23 04/06/24 09:57 Patient Tobacco Use Status Former Tobacco user 04/06/24 09:57 Tobacco use type Cigarette 04/06/24 09:57 e-Cigarette/Vaping Use Never Used 04/06/24 09:57 Thrive Assessment: Date of Thrive Assessment Date Thrive assessed 06/28/23 04/06/24 09:57 Const General: cooperative, comfortable, no acute distress and alert Neck Neck: Yes no lymphadenopathy Thyroid: Thyroid normal Resp Effort & Inspection: normal respiratory effort Auscultation: clear to auscultation bilaterally Percussion: percussion normal Cardio Jugular venous distension: no JVD Palpation: normal PMI Rate: regular rate Rhythm: regular rhythm Heart sounds: S1 normal heart sound present and S2 normal heart sound present GI Inspection: Yes normal to inspection Palpation (GI): No hepatosplenomegaly present Skin General skin exam: no rashes or lesions noted Extrem General: Yes no clubbing, cyanosis or edema Coding Level of Care Code Est Pt Level 3 (76347) Diagnoses Chronic obstructive pulmonary disease, unspecified COPD type J44.9 COPD type: unspecified COPD Assessment & Plan Assessment & Plan (1) COPD (chronic obstructive pulmonary disease): Code(s): J44.9 - Chronic obstructive pulmonary disease, unspecified Category: Medical Qualifiers: COPD type: unspecified COPD Qualified Code(s): J44.9 - Chronic obstructive pulmonary disease, unspecified Plan: severe but stable on
== END 2024-04-06 10:12 | disposition home or self-care (01) ==
PROVIDERS: PCP Internal Medicine; Visit Provider Internal Medicine
DX: J44.9 Chronic obstructive pulmonary disease, unspecified (principal)

== ENCOUNTER → 2024-04-06 09:47 | Outpatient (BNVA) | payer MEDICARE, SELFPAY | PROVIDERS: PCP Internal Medicine; Visit Provider Internal Medicine | DX: J44.9 Chronic obstructive pulmonary disease, unspecified (principal) | CPT/HCPCS: 99212 ==

== ENCOUNTER → 2024-04-12 23:59 | Outpatient (BNV) | payer MEDICARE, SELFPAY ==
--- NOTE | 2024-04-17 13:46 | A.OFFVIS_ITS ---
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 Mother No problems noted. Brother Esophageal cancer Social History Household Members: Children Housing: [facility] Do you presently have visiting nurse or other home services: Yes ([facility]) Alcohol intake: current Alcohol intake frequency: other Comment: no telesitter available at this time Patient Tobacco Use Status: Former Tobacco user Tobacco use type: Cigarette Years Smoked: (onset 18yo, 1-1.5ppd x 53yrs, 65pyh - now 1cig/day) e-Cigarette/Vaping Use: Never Used Second Hand Smoke Exposure: Yes Advance Directives Date on File: 07/01/20 service: No Current occupational status: retired Current occupation: RETIRED Current occupational exposures/hazards: No Cognitive needs: Yes (walker) Hearing needs: No Vision needs: No Office Procedures Cardiac Device Check Cardiac Device Check Details: Date of service- 04/12/2024 ; Battery life 65%; normal lead parameters; AP 1%; NEUROPHYSIOLOGY TECH 99%; no significant arrhythmias. Overall normal device function. [id number] Cardiac Device Interrogation, pacemaker Procedure code (CPT) selection complete Assessment & Plan Assessment & Plan (1) Pacemaker: Onset Date: ~06/2020 Comment: (Biotronik DCPP - placed 07/01/2020) Code(s): Z95.0 - Presence of cardiac pacemaker Category: Medical (2) Paroxysmal atrial fibrillation: Code(s): I48.0 - Paroxysmal atrial fibrillation Category: Medical Plan x Coding Level of Care Code Procedure Only Diagnoses Pacemaker Z95.0 Paroxysmal atrial fibrillation I48.0 CPT Codes Cardiac Device Check - Cardiac Device 12: [id number] Cardiac Device Interrogation, pacemaker ([id number])
== END ==
PROVIDERS: PCP Internal Medicine; Visit Provider Internal Medicine
DX: I48.0 Paroxysmal atrial fibrillation (principal); Z95.0 Presence of cardiac pacemaker
CPT/HCPCS: 93294

== ENCOUNTER 2024-04-21 13:02 | Outpatient (AMB) | payer MEDICARE, SELFPAY ==
[2024-04-21 13:11] LABS: Prothrombin Time Whole Bld POC 31.5 sec (11.1-13.5); ~PT, ~INR - Anti Coag Clinic 2.6 (0.9-1.1)
--- NOTE | 2024-04-21 13:15 | MHC.OFFVISCO ---
Intake Intake Visit Reasons: Anticoagulation Allergies head and shoulders shampoo Adverse Reaction (Severe, Uncoded 04/21/24 13:03) burn Medication List - Last Reconciled 04/21/24 by Jerilyn Streeter RN albuterol sulfate 2.5 mg (3 mL) inhalation Q4-6H PRN albuterol sulfate 90 mcg/actuation (ProAir HFA) 2 puffs inhalation Q4-6H PRN 90 days azelastine intranasal PRN betamethasone dipropionate 0.05% 1 appl topical BID PRN betamethasone dipropionate 0.05% 1 appl topical BID budesonide-formoterol 80-4.5 mcg/actuation 2 puffs inhalation BID 90 days ipratropium-albuterol 0.5 mg-3 mg(2.5 mg base)/3 mL 3 mL inhalation QID lisinopril 2.5 mg (1/2 x 5 mg) PO DAILY metoprolol succinate ER 100 mg (2 x 50 mg) PO DAILY multivitamin (Daily Multi-Vitamin tablet) 1 tab PO DAILY nebulizers To use every 4 hours nicotine apply 1-21 mg NICOTINE PATCH daily for 28 days; follow with 1-14 mg PATCH daily for 14 days, then 1-7mg PATCH daily for 14 days transdermal 2 months nicotine 1 patch transdermal DAILY 28 days Oxygen Home Use As directed spironolactone 12.5 mg (1/2 x 25 mg) PO DAILY warfarin 5 mg See Protocol PO DAILY Nursing Note Pt to ACS with use of walker and portable oxygen INR: 2.6 in therapeutic range of 2-3 Pt states he feels good and there are no changes He gets meals on wheels and eats whatever they give him. He does not pay attention to greens or reds Medications and supplements reviewed No changes in health, diet, medications, or supplements, Denies any signs and symptoms of bleeding or bruising or clotting. Bleeding, bruising, clotting discussed Nutritional guidance given Dose: 5mg X 5 days and 2.5mg X 2 days F/U INR: 4 weeks Patient verbalizes understanding of instructions given Anti-Coag Initial Assessment Social Hx Patient Tobacco Use Status: Former Tobacco user Tobacco use type: Cigarette alcohol intake: current Alcohol intake frequency: other Cardiovascular Hx: HTN, CHF, Arrhythmias and Other Lung Disease HX: COPD and Other Blood Disorder Hx: Anemia GI Hx: Diverticulosis Neurological Hx: Other Cancer HX: No Psych. 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
== END 2024-04-21 13:18 | disposition home or self-care (01) ==
LOC: HO.ACS 13:02
PROVIDERS: PCP Internal Medicine; Visit Provider Internal Medicine
DX: Z79.01 Long term (current) use of anticoagulants (principal)

== ENCOUNTER → 2024-04-21 13:02 | Outpatient (BNVA) | payer MEDICARE, SELFPAY | PROVIDERS: PCP Internal Medicine; Visit Provider Internal Medicine | DX: I48.0 Paroxysmal atrial fibrillation (principal); Z79.01 Long term (current) use of anticoagulants; Z51.81 Encounter for therapeutic drug level monitoring | CPT/HCPCS: 85610; 99211 ==

== ENCOUNTER 2024-05-23 12:58 | Outpatient (AMB) | payer MEDICARE, SELFPAY ==
[2024-05-23 13:04] LABS: Prothrombin Time Whole Bld POC 22.8 sec (11.1-13.5); ~PT, ~INR - Anti Coag Clinic 1.9 (0.9-1.1)
--- NOTE | 2024-05-23 13:08 | MHC.OFFVISCO ---
Intake Intake Visit Reasons: Anticoagulation Allergies head and shoulders shampoo Adverse Reaction (Severe, Uncoded 05/23/24 12:59) burn Medication List - Last Reconciled 05/23/24 by Jerilyn Streeter RN albuterol sulfate 2.5 mg (3 mL) inhalation Q4-6H PRN albuterol sulfate 90 mcg/actuation (ProAir HFA) 2 puffs inhalation Q4-6H PRN 90 days azelastine intranasal PRN betamethasone dipropionate 0.05% 1 appl topical BID PRN betamethasone dipropionate 0.05% 1 appl topical BID budesonide-formoterol 80-4.5 mcg/actuation 2 puffs inhalation BID 90 days ipratropium-albuterol 0.5 mg-3 mg(2.5 mg base)/3 mL 3 mL inhalation QID lisinopril 2.5 mg (1/2 x 5 mg) PO DAILY metoprolol succinate ER 100 mg (2 x 50 mg) PO DAILY multivitamin (Daily Multi-Vitamin tablet) 1 tab PO DAILY nebulizers To use every 4 hours nicotine apply 1-21 mg NICOTINE PATCH daily for 28 days; follow with 1-14 mg PATCH daily for 14 days, then 1-7mg PATCH daily for 14 days transdermal 2 months nicotine 1 patch transdermal DAILY 28 days Oxygen Home Use As directed spironolactone 12.5 mg (1/2 x 25 mg) PO DAILY warfarin 5 mg See Protocol PO DAILY Nursing Note Pt to ACS with use of walker and portable O2. INR 1.9?out of therapeutic range of 2-3 Medications and supplements reviewed Patient status: no changes Medications or supplements: no changes Diet: usual diet, gets meels on wheels Denies any signs and symptoms of bleeding or clotting or unusual bruising Bleeding, bruising, clotting discussed Nutritional guidance given: to avoid greens today Dose: boosted today's dose because pt states he eats what the meals on wheels gives him. Today 7.5mg (5mg) then he will resume usual dose of 5mg X 5 days and 2.5mg X 2 days F/U INR Date : 4 weeks?? Patient verbalizing understanding of instructions given. Anti-Coag Initial Assessment Social Hx Patient Tobacco Use Status: Former Tobacco user Tobacco use type: Cigarette alcohol intake: current Alcohol intake frequency: other Cardiovascular Hx: HTN, CHF, Arrhythmias and Other Lung Disease HX: COPD and Other Blood Disorder Hx: Anemia GI Hx: Diverticulosis Neurological Hx: Other Cancer HX: No Psych. 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
== END 2024-05-23 13:17 | disposition home or self-care (01) ==
LOC: HO.ACS 12:58
PROVIDERS: PCP Internal Medicine; Visit Provider Internal Medicine
DX: Z79.01 Long term (current) use of anticoagulants (principal)

== ENCOUNTER → 2024-05-23 12:58 | Outpatient (BNVA) | payer MEDICARE, SELFPAY | PROVIDERS: PCP Internal Medicine; Visit Provider Internal Medicine | DX: J44.9 Chronic obstructive pulmonary disease, unspecified (principal); J96.91 Respiratory failure, unspecified with hypoxia; R91.8 Other nonspecific abnormal finding of lung field; Z87.891 Personal history of nicotine dependence; I48.0 Paroxysmal atrial fibrillation; Z79.01 Long term (current) use of anticoagulants; Z51.81 Encounter for therapeutic drug level monitoring | CPT/HCPCS: 85610; 99211; 99212 ==

== ENCOUNTER 2024-05-23 13:19 | Outpatient (AMB) | payer MEDICARE, SELFPAY ==
[2024-05-23 13:25] VITALS: BP 132/60; PULSE 80; O2SAT 93; BMI 31.0
--- NOTE | 2024-05-23 13:25 | MHC.OFFVIS ---
Vital Signs 05/23/24 13:25 Height 5 ft 8 in Weight 203 lb 14.841 oz BMI 31.0 BP 132/60 Blood Pressure Location Lt brachial Position Sitting Pulse 80 Pulse Source Pulse Oximeter Pulse Oximetry (%) 93 Oxygen Delivery Method Nasal Cannula Oxygen Flow Rate 3 Intake Visit Reasons: COPD Intake Note: pt is here for follow up and states he is doing well, and needs a 3 month supply generic symbicort to be faxed to [facility]. 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: No Allergies head and shoulders shampoo Adverse Reaction (Severe, Uncoded 05/23/24 13:44) burn Medication List - Last Reconciled 05/23/24 by Rey August MD albuterol sulfate 2.5 mg (3 mL) inhalation Q4-6H PRN albuterol sulfate 90 mcg/actuation (ProAir HFA) 2 puffs inhalation Q4-6H PRN 90 days azelastine intranasal PRN betamethasone dipropionate 0.05% 1 appl topical BID PRN betamethasone dipropionate 0.05% 1 appl topical BID budesonide-formoterol 80-4.5 mcg/actuation 2 puffs inhalation BID 90 days ipratropium-albuterol 0.5 mg-3 mg(2.5 mg base)/3 mL 3 mL inhalation QID lisinopril 2.5 mg (1/2 x 5 mg) PO DAILY metoprolol succinate ER 100 mg (2 x 50 mg) PO DAILY multivitamin (Daily Multi-Vitamin tablet) 1 tab PO DAILY nebulizers To use every 4 hours nicotine apply 1-21 mg NICOTINE PATCH daily for 28 days; follow with 1-14 mg PATCH daily for 14 days, then 1-7mg PATCH daily for 14 days transdermal 2 months nicotine 1 patch transdermal DAILY 28 days Oxygen Home Use As directed spironolactone 12.5 mg (1/2 x 25 mg) PO DAILY warfarin 5 mg See Protocol PO DAILY Do you need a note to return to daycare/school/sports/work: No HPI HPI COPD: Details: This 74 years old gentleman is a case of advanced chronic obstructive pulmonary disease, with respiratory failure, requiring O2 2 L/minute continuously. He has been active smoker, smoking at least half pack of cigarettes a day. Finally he quit just before , and hoping that he does not go back to smoking. He continues to be short of breath on minimal effort, has frequent cough, has generalized weakness with puffiness of his face. Walks with a walker. 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 Mother No problems noted. Brother Esophageal cancer Social History Household Members: Children Housing: [facility] Do you presently have visiting nurse or other home services: Yes ([facility]) Alcohol intake: current Alcohol intake frequency: other Comment: no telesitter available at this time Patient Tobacco Use Status: Former Tobacco user Tobacco use type: Cigarette Years Smoked: (onset 18yo, 1-1.5ppd x 53yrs, 65pyh - now 1cig/day) e-Cigarette/Vaping Use: Never Used Second Hand Smoke Exposure: Yes Advance Directives Date on File: 07/01/20 service: No Current occupational status: retired Current occupation: RETIRED Current occupational exposures/hazards: No Cognitive needs: Yes (walker) Hearing needs: No Vision needs: No Review of Systems Const All systems reviewed & are unremarkable except as noted in HPI and below Eyes Reports loss of vision (HE IS BLIND IN RIGHT EYE) ENT Reports no additional complaints Card Denies chest pain, Reports irregular heart rhythm (ATRIAL FIBRILLATION) and Denies leg edema Resp Reports as per HPI GI Reports no additional complaints Reports no additional complaints Musc Reports no additional complaints Skin/Breast Reports system reviewed and no additional complaints, except as documented Neuro Reports no additional complaints and Reports loss of vision (HE IS BLIND IN RIGHT EYE) Psych Reports no additional complaints Physical Exam Vital Signs: Last Vital Signs Pulse 80 05/23/24 13:25 BP 132/60 05/23/24 13:25 Pulse Ox 93 05/23/24 13:25 Oxygen Delivery Method Nasal Cannula 05/23/24 13:25 Oxygen Flow Rate 3 05/23/24 13:25 BMI result Body Mass Index 31.0 Const General: comfortable, no acute distress, alert and awake Orientation/consciousness: patient oriented x3 HEENT Head: Yes normal to inspection General nose exam: No nasal polyps present and No nasal discharge present Face and sinus: Yes sinuses nontender Mouth: oropharynx normal Throat: Yes posterior oropharynx normal Eyes General: appearance normal, both eyes and all related structures Visual Kaplan: visual kaplan abnormal by confrontation (Blind in right eye) Neck Neck: Yes normal visual inspection, Yes no lymphadenopathy, Yes trachea midline and Yes no JVD Thyroid: Thyroid normal Chest Chest palpation & inspection: normal inspection of the chest, normal palpation of entire chest wall and no tenderness Resp Other: Percussion note is hyper-resonant, breath sounds are very distant with prolonged expiratory phase. No wheezes or rhonchi are heard, no crepitations. Cardio Palpation: normal PMI Rate: regular rate Rhythm: regular rhythm Heart sounds: no gallops and no murmurs GI Palpation (GI): Soft to palpation, nontender, No hepatosplenomegaly present and no masses Auscultation: normal bowel sounds Back/Spine/Pelvis Thoracic/Lumbar Spine: thoracic and lumbar spine normal to inspection Skin General skin exam: no rashes or lesions noted Neuro General: patient oriented x3 and no focal motor deficits Cranial nerves: Yes CN's II-XII intact bilaterally Extrem General: Yes normal to inspection, Yes no clubbing, cyanosis or edema and Yes no calf tenderness Psych Appearance: grossly normal and well kempt Speech and movement: Normal speech and movement present Assessment & Plan Assessment & Plan (1) COPD (chronic obstructive pulmonary disease): Comment: This gentleman has advanced chronic obstructive pulmonary disease. He is on maximum treatment for his COPD. Which is as follows in the plans. He gets his inhaler budesonide- formoterol from [facility]. He tells me that he has been using the ipratropium-albuterol solution in the nebulizer more than 4 times a day, he actually uses when his O2 sat falls below 90%. Code(s): J44.9 - Chronic obstructive pulmonary disease, unspecified Category: Medical Qualifiers: COPD type: unspecified COPD Qualified Code(s): J44.9 - Chronic obstructive pulmonary disease, unspecified Plan: He was educated about the use of nebulizer. If O2 sat goes below 90% he should just Alexi up the oxygen flow rather than using the nebulizer. Continue to use budesonide--Formerol 80-4.52 puffs b.i.d. Ipratropium-albuterol solution in the nebulizer Q 6 hours p.r.n. while awake, and not to use it as a rescue med for hypoxemia. Albuterol HFA 2 puffs Q 6 hours p.r.n.. (2) Multiple pulmonary nodules: Comment: RECENT LDCT. SHOWS MULTIPLE PULMONARY NODULES UN CHANGED FROM BEFORE. IN ADDITION SHOWING INCREASED BRONCHIAL WALL THICKENING AND PERIBRONCHIAL OPACITIES. Code(s): R91.8 - Other nonspecific abnormal finding of lung field Category: Medical Plan: Continue annual lung screening program with LDCT. Next low-dose CT scan scheduled in July 2024 (3) Respiratory failure with hypoxia: Comment: Patient does have nocturnal as well as daytime hypoxemia. Code(s): J96.91 - Respiratory failure, unspecified with hypoxia Category: Medical Plan: Use O2 2 L/minute continuously. Me increased to 2.5 L 3 L/minute if O2 sat falls below 89%. (4) Smoker: Comment: HE HAS BEEN SMOKING FOR MANY YEARS, TRYING TO QUIT, HE CLAIMS THAT HE FINALLY QUIT SMOKING JUST BEFORE THANKSGIVING ( 2 WEEKS AGO ) TRYING TO RESIST THE URGE TO SMOKE AGAIN. Code(s): F17.200 - Nicotine dependence, unspecified, uncomplicated Category: Social Hx Plan: COMMENDED FOR QUITTING. DO NOT GO BACK TO SMOKING. Coding Level of Care Code Est Pt Level 3 (27044) Diagnoses Chronic obstructive pulmonary disease, unspecified COPD type J44.9 COPD type: unspecified COPD Multiple pulmonary nodules R91.8 Respiratory failure with hypoxia J96.91 Smoker F17.200
== END 2024-05-23 13:43 | disposition home or self-care (01) ==
PROVIDERS: PCP Internal Medicine; Visit Provider Internal Medicine
DX: J44.9 Chronic obstructive pulmonary disease, unspecified (principal); R91.8 Other nonspecific abnormal finding of lung field; J96.91 Respiratory failure, unspecified with hypoxia; F17.200 Nicotine dependence, unspecified, uncomplicated
CPT/HCPCS: 99213

== ENCOUNTER 2024-06-05 11:43 | Outpatient (REF) | payer MEDICARE, SELFPAY ==
[2024-06-05 11:58] LABS: MANUAL DIFF FLAG NO
[2024-06-05 12:20] LABS: Basophils Absolute Auto 0.1 X10*3/uL (0.0-0.2); Basophils Percent Auto 1.1 % (0-2); Eosinophils Absolute Auto 0.3 X10*3/uL (0.0-0.4); Eosinophils Percent Auto 2.6 % (0-4); Hemoglobin 11.6 g/dl (14.0-18.0); Imm Gran Abs Auto 0.06 X10*3/uL (0.00-0.03); Imm Gran Pct Auto 0.6 % (0.0-0.4); Lymphocytes Absolute Auto 1.7 X10*3/uL (1.2-4.9); Lymphocytes Percent Auto 15.4 % (20-40); Mean Corpuscular HGB Conc 29.7 g/dl (31.0-36.0); Mean Corpuscular Hemoglobin 27.8 pg (27.0-33.0); Mean Corpuscular Volume 93.3 fL (80.0-98.0); Mean Platelet Volume 11.2 fL (9.4-12.4); Monocytes Absolute Auto 0.8 X10*3/uL (0.1-1.2); Neutrophils Absolute Auto 7.9 x10*3/uL (2.0-8.3); Neutrophils Percent Auto 73.3 % (45-73); Platelet Count 233 X10*3/uL (160-400); Red Blood Count 4.18 X10*6/uL (4.60-5.80); Red Cell Distribution Width 14.6 % (11.0-16.0); White Blood Count 10.8 X10*3/uL (4.8-10.8)
[2024-06-05 12:50] LABS: Alanine Aminotransferase 13 U/L (0-40); Albumin Level 3.9 g/dL (3.5-5.0); Alkaline Phosphatase 81 U/L (39-117); Anion Gap 11 (12-20); Aspartate Amino Transferase 20 U/L (5-37); Bilirubin Total 0.2 mg/dL (0.0-1.0); Blood Urea Nitrogen 16 mg/dL (9-16); Calcium 8.9 mg/dL (8.4-10.2); Carbon Dioxide 38 mmol/L (22-29); Chloride 97 mmol/L (96-108); Cholesterol 223 mg/dL (<200); Estimated Glomerular Filt Rate > 60; Glucose Fasting 106 mg/dL (60-99); HDL Cholesterol 38 mg/dL (>40); LDL Cholesterol Calculated 142 mg/dL (<100); Potassium 4.2 mmol/L (3.3-5.1); Sodium 142 mmol/L (135-145); Total Protein 7.2 g/dL (6.5-8.0); Triglycerides 216 mg/dL (<150)
== END 2024-06-05 11:44 | disposition home or self-care (01) ==
LOC: HO.LAB 11:43
PROVIDERS: PCP Internal Medicine; Visit Provider Internal Medicine
DX: I48.0 Paroxysmal atrial fibrillation (principal); Z13.0 Encounter for screening for diseases of the blood and blood-forming organs and certain disorders involving the immune mechanism; Z13.9 Encounter for screening, unspecified; Z13.220 Encounter for screening for lipoid disorders; I42.8 Other cardiomyopathies; Z98.890 Other specified postprocedural states; Z95.0 Presence of cardiac pacemaker; Z87.891 Personal history of nicotine dependence; J44.9 Chronic obstructive pulmonary disease, unspecified; I10 Essential (primary) hypertension
CPT/HCPCS: 36415; 80053; 80061; 85025; 93280; 99212

== ENCOUNTER 2024-06-05 12:13 | Outpatient (AMB) | payer MEDICARE, SELFPAY ==
[2024-06-05 12:51] VITALS: BP 90/52; PULSE 100; BMI 30.6
--- NOTE | 2024-06-05 12:51 | MHC.OFFVIS ---
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: No Allergies head and shoulders shampoo Adverse Reaction (Severe, Uncoded 06/05/24 12:54) burn Medication List - Last Reconciled 06/05/24 by SHELBY Caruso albuterol sulfate 2.5 mg (3 mL) inhalation Q4-6H PRN albuterol sulfate 90 mcg/actuation (ProAir HFA) 2 puffs inhalation Q4-6H PRN 90 days azelastine intranasal PRN betamethasone dipropionate 0.05% 1 appl topical BID PRN betamethasone dipropionate 0.05% 1 appl topical BID budesonide-formoterol 80-4.5 mcg/actuation 2 puffs inhalation BID 90 days ipratropium-albuterol 0.5 mg-3 mg(2.5 mg base)/3 mL 3 mL inhalation QID lisinopril 2.5 mg (1/2 x 5 mg) PO DAILY metoprolol succinate ER 100 mg (2 x 50 mg) PO DAILY multivitamin (Daily Multi-Vitamin tablet) 1 tab PO DAILY nebulizers To use every 4 hours nicotine apply 1-21 mg NICOTINE PATCH daily for 28 days; follow with 1-14 mg PATCH daily for 14 days, then 1-7mg PATCH daily for 14 days transdermal 2 months nicotine 1 patch transdermal DAILY 28 days Oxygen Home Use As directed spironolactone 12.5 mg (1/2 x 25 mg) PO DAILY warfarin 5 mg See Protocol PO DAILY HPI HPI 6 mth w/ biotronic: Details: Stan is a 74-year-old male with past medical history of hypertension, COPD, O2 dependent, complete heart block status post dual-chamber pacemaker placement, nonischemic cardiomyopathy, no significant CAD on recent cardiac catheterization who presents for follow-up. Today he reports he has been doing about the same since his last visit in November. Continues to have chronic shortness of breath and wears his oxygen now continually. He admits to being mostly sedentary and ambulates with a willing walker. No PND, orthopnea or edema. No chest discomfort, heart palpitations, presyncope, syncope. No bleeding issues with Coumadin. He has not required diuretics recently. Continues to smoke and was requesting a prescription for Varenicline. He is taking all meds as directed. 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 Mother No problems noted. Brother Esophageal cancer Social History Household Members: Children Housing: [facility] Do you presently have visiting nurse or other home services: Yes ([facility]) Alcohol intake: current Alcohol intake frequency: other Comment: no telesitter available at this time Patient Tobacco Use Status: Former Tobacco user Tobacco use type: Cigarette Years Smoked: (onset 18yo, 1-1.5ppd x 53yrs, 65pyh - now 1cig/day) e-Cigarette/Vaping Use: Never Used Second Hand Smoke Exposure: Yes Advance Directives Date on File: 07/01/20 service: No Current occupational status: retired Current occupation: RETIRED Current occupational exposures/hazards: No Cognitive needs: Yes (walker) Hearing needs: No Vision needs: No Review of Systems Const All systems reviewed & are unremarkable except as noted in HPI and below ENT Denies dizziness Card Denies chest pain, Denies chest pain at rest, Denies chest pain with activity, Denies rapid heart rate, Denies pedal edema, Denies edema, Denies leg edema, Denies lightheadedness, Denies palpitations, Reports dyspnea, Reports dyspnea on exertion and Denies orthopnea Resp Denies cough, Reports dyspnea and Reports dyspnea on exertion GI Denies hematochezia and Denies change in stool character Musc Reports abnormal gait (uses walker ), Denies limited range of motion, Denies muscle cramps, Reports muscle weakness, Denies numbness, Denies radiating pain into limb, Denies stiffness and Denies tingling Neuro Reports abnormal gait (uses walker ), Denies dizziness, Denies numbness and Denies tingling Endo Denies palpitations Physical Exam Vital Signs: Last Vital Signs Pulse 100 06/05/24 12:51 BP 90/52 L 06/05/24 12:51 BMI result Body Mass Index 30.6 Const General: cooperative, comfortable and no acute distress Orientation/consciousness: patient oriented x3 Neck Neck: Yes normal visual inspection Resp Other: Lungs diminished bilaterally Effort & Inspection: normal respiratory effort Auscultation: no crackles, no rales, no rhonchi and wheezes (Expiratory wheezes bilaterally) Cardio Jugular venous distension: no JVD Rate: regular rate Rhythm: regular rhythm Heart sounds: S1 normal heart sound present, S2 normal heart sound present, no murmurs and no rubs Neuro General: patient oriented x3 Extrem General: Yes normal to inspection and No no pedal edema Psych Appearance: grossly normal Mental Status: mental status grossly normal Speech and movement: Normal speech and movement present Office Procedures EKG Details: today - read by me a sensed, v paced rhythm rate 100 [id number], Complete Cardiac Device Check Cardiac Device Check Details: Biotronik dual chamber pacemaker, DDD mode low rate 60, battery 7 yrs, RA threshold 0.7 volts at 0.4 ms, RV threshold 0.8 V at 0.4 ms, episode of NSVT 13 beats 01/04/24. [id number] Cardiac Device Check, pacemaker dual lead Procedure code (CPT) selection complete Assessment & Plan Assessment & Plan (1) Nonischemic cardiomyopathy: Comment: 02/04/2023, LAD and left circumflex with minimal luminal irregularities, left main and RCA normal Code(s): I42.8 - Other cardiomyopathies Category: Medical Plan: History of cardiomyopathy. Echo at [facility] [place] 07/02/20 showed EF 45-50%. Repeat echo done 11/17/2022 showed EF 32%. He has been on medications for neurohormonal modulation including metoprolol XL and lisinopril. He has chronic shortness of breath related to COPD and is O2 dependent. He did undergo a cardiac catheterization on 02/04/23 which showed only minimal luminal irregularities of the LAD and left circumflex. His cardiomyopathy is nonischemic. His last limited echo done on 04/19/2023 showed EF 45-50%. He has a pacemaker in place. Upgrade to CLOTHES MARKER/CLOTHES MARKER D not indicated at this time. On examination he does not appear fluid overloaded. Blood pressure is on the low side today, asymptomatic. Continues to drink alcohol periodically and does smoke half a pack of cigarettes daily. He is requesting a script for Chantix and says this has helped him in the past. Will forward this message to his PCP as he has an upcoming visit. He has no clinical signs of heart failure on examination. Labs done 06/05/2024 shows creatinine 0.73, potassium 4.2. Continue spironolactone, metoprolol XL, lisinopril for neurohormonal modulation. te use. Signs and symptoms of heart failure reviewed with him. Cardiology follow-up 6 months, sooner if needed (2) S/P cardiac catheterization: Comment: 02/04/2023 lad and left circumflex minimal luminal irregularity Code(s): Z98.890 - Other specified postprocedural states Category: Surgical Plan: As above (3) Pacemaker: Onset Date: ~06/2020 Comment: (Biotronik DCPP - placed 07/01/2020) Code(s): Z95.0 - Presence of cardiac pacemaker Category: Medical Plan: Biotronik dual-chamber pacemaker in place. Interrogation today shows device is functioning normally. Next office interrogation due in 6 months. Remote monitoring in use. (4) Paroxysmal atrial fibrillation: Code(s): I48.0 - Paroxysmal atrial fibrillation Category: Medical Plan: History of paroxysmal atrial fibrillation with ablation 2018. No reports of heart palpitations. He is on metoprolol XL for heart rate control. He is on Coumadin for anticoagulation. He follows with the [facility] [place] [facility] anticoagulation Clinic. INR goal 2-3. No bleeding issues reported EKG done today shows atrial sense, ventricular paced rhythm, rate 100. Device interrogation today shows 0% atrial fibrillation since last interrogation. (5) Personal history of nicotine dependence: Code(s): Z87.891 - Personal history of nicotine dependence Category: Medical Plan: Current smoker. Requesting Chantix. Will forward to his PCP for script and monitoring. (6) COPD (chronic obstructive pulmonary disease): Comment: This gentleman has advanced chronic obstructive pulmonary disease. He is on maximum treatment for his COPD. Which is as follows in the plans. He gets his inhaler budesonide- formoterol from [facility]. He tells me that he has been using the ipratropium-albuterol solution in the nebulizer more than 4 times a day, he actually uses when his O2 sat falls below 90%. Code(s): J44.9 - Chronic obstructive pulmonary disease, unspecified Category: Medical Qualifiers: COPD type: unspecified COPD Qualified Code(s): J44.9 - Chronic obstructive pulmonary disease, unspecified Plan: Follows with pulmonology Plan Time spent on chart review, documentation, interview and assessment Orders: Orders AMB EKG-In Office Today I48.0 - Paroxysmal atrial fibrillation Coding Level of Care Code Est Pt Level 4 (70352) Complex EM visit Add On G2211 Diagnoses Nonischemic cardiomyopathy I42.8 S/P cardiac catheterization Z98.890 Pacemaker Z95.0 Paroxysmal atrial fibrillation I48.0 Personal history of nicotine dependence Z87.891 Chronic obstructive pulmonary disease, unspecified COPD type J44.9 COPD type: unspecified COPD CPT Codes EKG - CPT: 71377-[id number], Complete ([id number]) Cardiac Device Check - Cardiac Device 2: [id number] Cardiac Device Check, pacemaker dual lead ([id number]) Time Spent (min) 28
== END 2024-06-05 13:24 | disposition home or self-care (01) ==
PROVIDERS: PCP Internal Medicine; Visit Provider Nurse Practitioner Family
DX: I42.8 Other cardiomyopathies (principal); Z95.0 Presence of cardiac pacemaker; Z98.890 Other specified postprocedural states; I48.0 Paroxysmal atrial fibrillation; Z87.891 Personal history of nicotine dependence; J44.9 Chronic obstructive pulmonary disease, unspecified
CPT/HCPCS: 93280; 99214; G2211

== ENCOUNTER 2024-06-27 12:59 | Outpatient (AMB) | payer MEDICARE, SELFPAY ==
[2024-06-27 13:10] LABS: Prothrombin Time Whole Bld POC 23.1 sec (11.1-13.5); ~PT, ~INR - Anti Coag Clinic 1.9 (0.9-1.1)
--- NOTE | 2024-06-27 13:13 | MHC.OFFVISCO ---
Intake Intake Visit Reasons: Anticoagulation Allergies head and shoulders shampoo Adverse Reaction (Severe, Uncoded 06/27/24 13:05) burn Medication List - Last Reconciled 06/27/24 by Jerilyn Streeter RN albuterol sulfate 2.5 mg (3 mL) inhalation Q4-6H PRN albuterol sulfate 90 mcg/actuation (ProAir HFA) 2 puffs inhalation Q4-6H PRN 90 days azelastine intranasal PRN betamethasone dipropionate 0.05% 1 appl topical BID PRN betamethasone dipropionate 0.05% 1 appl topical BID budesonide-formoterol 80-4.5 mcg/actuation 2 puffs inhalation BID 90 days ipratropium-albuterol 0.5 mg-3 mg(2.5 mg base)/3 mL 3 mL inhalation QID lisinopril 2.5 mg (1/2 x 5 mg) PO DAILY metoprolol succinate ER 100 mg (2 x 50 mg) PO DAILY multivitamin (Daily Multi-Vitamin tablet) 1 tab PO DAILY nebulizers To use every 4 hours nicotine apply 1-21 mg NICOTINE PATCH daily for 28 days; follow with 1-14 mg PATCH daily for 14 days, then 1-7mg PATCH daily for 14 days transdermal 2 months nicotine 1 patch transdermal DAILY 28 days Oxygen Home Use As directed spironolactone 12.5 mg (1/2 x 25 mg) PO DAILY varenicline (Chantix Starting Month Box) PO PER PKG DIR warfarin 5 mg See Protocol PO DAILY Nursing Note INR: 1.9?out of therapeutic range of 2-3 Medications and supplements reviewed Patient status: not feeling well, resp symptoms on top of COPD. Pt to ACS with portable O2. Medications or supplements: no changes Diet: appetite good, usual diet for pt Denies any signs and symptoms of bleeding or clotting or unusual bruising Bleeding, bruising, clotting discussed Nutritional guidance given: to avoid greens today Dose: increase today's dose to 7.5mg and then resume usual dose of 5mg X 5 days and 2.5mg X 2 days F/U INR Date : 4 weeks? Patient verbalizing understanding of instructions given. Anti-Coag Initial Assessment Social Hx Patient Tobacco Use Status: Former Tobacco user Tobacco use type: Cigarette alcohol intake: current Alcohol intake frequency: other Cardiovascular Hx: HTN, CHF, Arrhythmias and Other Lung Disease HX: COPD and Other Blood Disorder Hx: Anemia GI Hx: Diverticulosis Neurological Hx: Other Cancer HX: No Psych. Illness/Depression: No Coding Level of Care Code Est Patient Level 1 Diagnoses Current use of anticoagulant therapy Z79.01 Assessment & Plan Assessment & Plan (1) Current use of anticoagulant therapy: Code(s): Z79.01 - [facility] (current) use of anticoagulants Category: Medical
== END 2024-06-27 13:19 | disposition home or self-care (01) ==
LOC: HO.ACS 12:59
PROVIDERS: PCP Internal Medicine; Visit Provider Internal Medicine
DX: Z79.01 Long term (current) use of anticoagulants (principal)

== ENCOUNTER → 2024-06-27 12:59 | Outpatient (BNVA) | payer MEDICARE, SELFPAY | PROVIDERS: PCP Internal Medicine; Visit Provider Internal Medicine | DX: I48.0 Paroxysmal atrial fibrillation (principal); Z79.01 Long term (current) use of anticoagulants; Z51.81 Encounter for therapeutic drug level monitoring | CPT/HCPCS: 85610; 99211 ==

== ENCOUNTER 2024-07-07 13:26 | Outpatient (AMB) | payer MEDICARE, SELFPAY ==
--- NOTE | 2024-07-07 13:30 | A.OFFPC_ITS ---
Vital Signs 07/07/24 13:31 Height 5 ft 8 in Weight 202 lb 8 oz BMI 30.8 BP 112/62 Blood Pressure Location Lt brachial Position Sitting Pulse 97 Pulse Source Pulse Oximeter Temp 96.9 F Temp Source Temporal Artery Scan Pulse Oximetry (%) 90 L Oxygen Delivery Method Nasal Cannula Oxygen Flow Rate 3 Intake Visit Reasons: 6mth f/u Allergies head and shoulders shampoo Adverse Reaction (Severe, Uncoded 06/27/24 13:05) burn Tobacco use date assessed: 06/28/23 Dental Screening Dental Screen Date: 06/28/23 HPI 6mth f/u HPI Details 02 dependent COPD; see pulmonary; stable [facility] Medical History (Updated 07/10/24 @ 08:48 by Charbel Poe MD) Hand dermatitis Respiratory failure with hypoxia Chronic bronchitis Personal history of nicotine dependence Hypertension 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 Mother No problems noted. Brother Esophageal cancer Social History Household Members: Children [facility] Do you presently have visiting nurse or other home services: Yes ([facility]) Alcohol intake: current Alcohol intake frequency: other Comment: no telesitter available at this time Patient Tobacco Use Status: Former Tobacco user Tobacco use type: Cigarette Years Smoked: (onset 18yo, 1-1.5ppd x 53yrs, 65pyh - now 1cig/day) e-Cigarette/Vaping Use: Never Used Second Hand Smoke Exposure: Yes Advance Directives Date on File: 07/01/20 service: No Current occupational status: retired Current occupation: RETIRED Current occupational exposures/hazards: No Cognitive needs: Yes (walker) Hearing needs: No Vision needs: No Questionnaire PHQ-9 Over the last 2 weeks, how often have you been bothered by any of the following problems? 1. Little interest or pleasure in doing things: not at all 2. Feeling down, depressed, or hopeless: not at all 3. Trouble falling or staying asleep, or sleeping too much: not at all 4. Feeling tired or having little energy: not at all 5. Poor appetite or overeating: not at all 6. Feeling bad about yourself - or that you are a failure or have let yourself or your family down: not at all 7. Trouble concentrating on things, such as reading the newspaper or watching television: not at all 8. Moving or speaking so slowly that other people could have noticed. Or the opposite - being so fidgety or restless that you have been moving around a lot more than usual: not at all 9. Thoughts that you would be better off or of hurting yourself in some way: not at all Total score: 0 Depression Screening Interpretation: Negative Depression Screening Done: Yes 61020 - PHQ-9 Billing: Yes Source: Developed by Drs. Paramjit Wade, Brooke Browne, Max Roberson and colleagues, with an educational seble from [employer]. Thrive Questionnaire Date Thrive assessed: 07/07/24 I am a: Patient What is your living situation today?: I have a steady place to live Within the past 12 months, did the food you bought not last and you didn't have the money to get more?: Never true Within the past 12 months, did you worry whether your food would run out before you got money to buy more?: Never true Do you have trouble paying for medicines?: No Do you have trouble getting transportation to medical appointments?: No Do you have trouble paying your heating and electricity bill?: No Do you have trouble taking care of your child, family member or friend?: No Do you have trouble with day-to-day activities such as bathing, preparing meals, shopping, managing finances, etc.?: No Are you currently unemployed and looking for a job?: No Are you interested in more education?: No Please select the resources that you would like help with: None Currently or been in a relationship where the following occur: No concerns reported THRIVE Score: 0 AUDIT C Alcohol Use Questionnaire (AUDIT-C) 1. How often do you have a drink containing alcohol?: Never 3. How often do you have six or more drinks on one occasion?: Never Total Score: 0 Score Reviewed/Action Taken: Yes ALEJO-7 AMB Questionnaire ALEJO-7 Date ALEJO - 7 assessed: 07/07/24 Feeling nervous, anxious, or on edge: 0 = Not at all Not being able to stop or control worryin = Not at all Worrying too much about different things: 0 = Not at all Trouble relaxin = Not at all Being so restless that it is hard to sit still: 0 = Not at all Becoming easily annoyed or irritable: 0 = Not at all Feeling afraid as if something awful might happen: 0 = Not at all Total ALEJO-7 score (0-4 normal; 5-9 mild; 10-14 moderate; 15-21 severe): 0 Source: Developed by Drs. Paramjit Wade, Brooke Browne, Max Roberson and colleagues, with an educational seble from [employer]. ALEJO-7 Assessment Billing ALEJO-7 Assessment Tool: ALEJO-7 Assessment 53692 Review of Systems Const Denies chills, Denies headache(s) and Denies weight loss ENT Denies headache(s) Card Denies chest pain, Denies syncope, Denies irregular heart rhythm and Denies dyspnea Resp Denies chest congestion, Denies cough and Denies dyspnea GI Denies abdominal pain, Denies change in stool character, Denies nausea and Denies vomiting Musc Denies deformity and Denies joint swelling Neuro Denies syncope and Denies headache(s) Physical exam (Primary Care) Vital Signs: Last Vital Signs Temp 96.9 F 07/07/24 13:31 Pulse 97 07/07/24 13:31 BP 112/62 07/07/24 13:31 Pulse Ox 90 L 07/07/24 13:31 Oxygen Delivery Method Nasal Cannula 07/07/24 13:31 Oxygen Flow Rate 3 07/07/24 13:31 BMI result Body Mass Index 30.8 Tobacco/Smoking Status: Tobacco use Status Tobacco use date assessed 06/28/23 07/07/24 13:31 Patient Tobacco Use Status Former Tobacco user 07/07/24 13:31 Tobacco use type Cigarette 07/07/24 13:31 e-Cigarette/Vaping Use Never Used 07/07/24 13:31 PHQ-9: PHQ-9 Score PHQ-9: Total score 0 07/07/24 13:36 Depression Screening Interpretation: Negative Thrive Assessment: Date of Thrive Assessment Date Thrive assessed 07/07/24 07/07/24 13:36 Currently or been in a relationship where the following occur: No concerns reported Const General: cooperative, comfortable, no acute distress and alert Neck Neck: Yes no lymphadenopathy Thyroid: Thyroid normal Resp Effort & Inspection: normal respiratory effort Auscultation: clear to auscultation bilaterally Percussion: percussion normal Cardio Jugular venous distension: no JVD Palpation: normal PMI Rate: regular rate Rhythm: regular rhythm Heart sounds: S1 normal heart sound present and S2 normal heart sound present GI Inspection: Yes normal to inspection Palpation (GI): No hepatosplenomegaly present Skin General skin exam: no rashes or lesions noted Extrem General: Yes no clubbing, cyanosis or edema Coding Level of Care Code Est Pt Level 3 (48053) Diagnoses Chronic obstructive pulmonary disease, unspecified COPD type J44.9 COPD type: unspecified COPD Additional Codes ALEJO-7 Assessment Billing - ALEJO-7 Assessment Tool: ALEJO-7 Assessment 62278 ([id number]) PHQ-9 - 87504 - PHQ-9 Billing: Yes ([id number]) Assessment & Plan Assessment & Plan (1) COPD (chronic obstructive pulmonary disease): Code(s): J44.9 - Chronic obstructive pulmonary disease, unspecified Category: Medical Qualifiers: COPD type: unspecified COPD Qualified Code(s): J44.9 - Chronic obstructive pulmonary disease, unspecified Plan: stable; f/u with pulmonary
[2024-07-07 13:31] VITALS: BP 112/62; PULSE 97; TEMP 36.1; O2SAT 90; BMI 30.8
--- OUTSIDE RECORDS SUMMARY | 2024-07-07 15:08 | XMS_ITS | Clinical Summary ---
Author Organization [facility] Address [address] [place] [address] Care Team Providers Care Project Design Engineer Name Role Phone Charbel Poe MD Primary Care Provider [phone] Surgical History Surgery Date Site/Laterality Comments OTHER SURGICAL HISTORY PROCEDURE: DENIES PREVIOUS SURGERY COLONOSCOPY 07/09/2009 PROCEDURE: HISTORICAL COLONOSCOPY; COMMENT: [facility]. Diverticulosis. UPPER GASTROINTESTINAL ENDOSCOPY 07/09/2009 PROCEDURE: [place] UPPER GI ENDOSCOPY PERFORMED; COMMENT: [facility], GI bleed. No significant abnormalities. Medical History Medical History Date Comments Iron deficiency anemia 07/16/2009 DX:Iron d eficiency anemia Tobacco abuse 07/16/2009 DX:Tobacco abuse ; COMMENT: Has tried Wellbutrin, Chantix, hypnotherapy, nicotine patch and gum 10/22 - [employer] unable to contact after 5 attempts Diverticulosis, sigmoid 07/16/2009 DX:Diver ticulosis, sigmoid; COMMENT: Lower GI bleed 06/23. Admitted to [facility]. Colonoscopy 06/23. 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 Stack Severe obstructive disease by spirometry Hypertension 01/17/2010 DX:Hypertension Family History Medical History Relation Name Comments Esophageal cancer Brother 1 at 57 Relation Name Status Comments Brother 1 Brother 2 Father Mother Alive Social History Tobacco Use Types Packs/Day Years Used Date Smoking Tobacco: Every Day Cigarettes Smokeless Tobacco: Never Alcohol Use Standard Drinks/Week Comments Yes 0 (1 standard drink = 0.6 oz pur e alcohol) Sex and Gender Information Value Date Recorded Sex Assigned at Not on file Gender Identity Not on file Sexual Orientation Not on file Obstetrics History Plan of Treatment Health Maintenance Due Date Last Done Comments Hepatitis A Vaccines (1 of 2 - Risk 2-dose series) 1971 Zoster Vaccines (1 of 2) 2002 RSV Immunization Patients 60+ Years Old (1 - Risk 60-74 years 1-dose series) 2012 DTaP,Tdap,and Td Vaccines (2 - Td or Tdap) 07/16/2019 07/16/2009 Abdominal Aortic Aneurysm (AAA) Screen 05/17/2022 Cholesterol Screening (Lipid Panel) 05/17/2022 Colorectal Cancer Screening: Stool Based Tests (FOBT/FIT) 05/17/2022 Depression Screening 05/17/2022 Falls Risk Assessment 05/17/2022 Hepatitis C Screening 05/17/2022 Social Influencers of Health Screening 05/17/2022 Hypertension/CHF/CAD Annual BMP Blood Test 05/28/2022 COVID-19 Vaccine ( season) 2024 Influenza Vaccine (#1) 2024 9, 03/14/2018, 04/29/2016, Additional history exists Pneumococcal Vaccine: 65+ Years Completed 09/13/2018, 09/13/2017, 05/14/2011 HIB Vaccines Aged Out No longer eligi ble based on patient's age to complete this topic HPV Vaccines Aged Out No longer eligi ble based on patient's age to complete this topic Hepatitis B Vaccines Aged Out No long er eligible based on patient's age to complete this topic IPV Vaccines Aged Out No longer eligi ble based on patient's age to complete this topic MMR Vaccines Aged Out No longer eligi ble based on patient's age to complete this topic Meningococcal ACWY Vaccine Aged Out N o longer eligible based on patient's age to complete this topic RSV Immunization Patients Under 20 months Aged Out No longer eligible based on patient's age to complete this topic Varicella Vaccines Aged Out No longer eligible based on patient's age to complete this topic Advance Directives Documents on File Type Date Recorded Patient Trim Setter Expl anation Health Care Decision (hx) 02/08/2020 AD PAZ DIRECTIVE Health Care Decision (hx) 02/08/2020 AD PAZ DIRECTIVE Health Care Decision (hx) 02/08/2020 AD PAZ DIRECTIVE Health Care Decision (hx) 02/08/2020 AD PAZ DIRECTIVE Health Care Decision (hx) 02/08/2020 AD PAZ DIRECTIVE Care Teams Project Design Engineer Relationship Specialty Start Date End Date Charbel Poe MD [address] [place] [address] PCP - General Internal Medicine 02/21/21
== END 2024-07-07 15:12 | disposition home or self-care (01) ==
PROVIDERS: PCP Internal Medicine; Visit Provider Internal Medicine
DX: J44.9 Chronic obstructive pulmonary disease, unspecified (principal)

== ENCOUNTER → 2024-07-07 13:26 | Outpatient (BNVA) | payer MEDICARE, SELFPAY | PROVIDERS: PCP Internal Medicine; Visit Provider Internal Medicine | DX: J44.9 Chronic obstructive pulmonary disease, unspecified (principal) | CPT/HCPCS: 96127; 99212 ==

== ENCOUNTER → 2024-07-14 23:59 | Outpatient (BNV) | payer MEDICARE, SELFPAY ==
--- NOTE | 2024-07-16 11:36 | MHC.OFFVIS ---
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 Mother No problems noted. Brother Esophageal cancer Social History Household Members: Children [facility]: [facility] Do you presently have visiting nurse or other home services: Yes ([facility]) Alcohol intake: current Alcohol intake frequency: other Comment: no telesitter available at this time Patient Tobacco Use Status: Former Tobacco user Tobacco use type: Cigarette Years Smoked: (onset 18yo, 1-1.5ppd x 53yrs, 65pyh - now 1cig/day) e-Cigarette/Vaping Use: Never Used Second Hand Smoke Exposure: Yes Advance Directives Date on File: 07/01/20 service: No Current occupational status: retired Current occupation: RETIRED Current occupational exposures/hazards: No Cognitive needs: Yes (walker) Hearing needs: No Vision needs: No Office Procedures Cardiac Device Check Cardiac Device Check Details: Date of service- 07/14/2024 ; Battery life 65%; normal lead parameters; AP 2%; BUNCH TRIMMER MOLD 99%; no significant arrhythmias. Overall normal device function. [id number] Cardiac Device Interrogation, pacemaker Procedure code (CPT) selection complete Assessment & Plan Assessment & Plan (1) Pacemaker: Onset Date: ~06/2020 Comment: (Biotronik DCPP - placed 07/01/2020) Code(s): Z95.0 - Presence of cardiac pacemaker Category: Medical (2) Complete heart block: Code(s): I44.2 - Atrioventricular block, complete Category: Medical Plan x Coding Level of Care Code Procedure Only Diagnoses Pacemaker Z95.0 Complete heart block I44.2 CPT Codes Cardiac Device Check - Cardiac Device 12: [id number] Cardiac Device Interrogation, pacemaker ([id number])
== END ==
PROVIDERS: PCP Internal Medicine; Visit Provider Internal Medicine
DX: I44.2 Atrioventricular block, complete (principal); Z95.0 Presence of cardiac pacemaker
CPT/HCPCS: 93294

== ENCOUNTER 2024-07-25 13:05 | Outpatient (AMB) | payer MEDICARE, SELFPAY ==
[2024-07-25 13:15] LABS: Prothrombin Time Whole Bld POC 36.6 sec (11.1-13.5); ~PT, ~INR - Anti Coag Clinic 3.1 (0.9-1.1)
--- NOTE | 2024-07-25 13:24 | MHC.OFFVISCO ---
Intake Intake Visit Reasons: Anticoagulation Allergies head and shoulders shampoo Adverse Reaction (Severe, Uncoded 07/25/24 13:07) burn Medication List - Last Reconciled 07/25/24 by Alem Baumann RN albuterol sulfate 2.5 mg (3 mL) inhalation Q4-6H PRN albuterol sulfate 90 mcg/actuation (ProAir HFA) 2 puffs inhalation Q4-6H PRN 90 days azelastine intranasal PRN betamethasone dipropionate 0.05% 1 appl topical BID PRN betamethasone dipropionate 0.05% 1 appl topical BID budesonide-formoterol 80-4.5 mcg/actuation 2 puffs inhalation BID 90 days ipratropium-albuterol 0.5 mg-3 mg(2.5 mg base)/3 mL 3 mL inhalation QID lisinopril 2.5 mg (1/2 x 5 mg) PO DAILY metoprolol succinate ER 100 mg (2 x 50 mg) PO DAILY multivitamin (Daily Multi-Vitamin tablet) 1 tab PO DAILY nebulizers To use every 4 hours nicotine apply 1-21 mg NICOTINE PATCH daily for 28 days; follow with 1-14 mg PATCH daily for 14 days, then 1-7mg PATCH daily for 14 days transdermal 2 months nicotine 1 patch transdermal DAILY 28 days Oxygen Home Use As directed spironolactone 12.5 mg (1/2 x 25 mg) PO DAILY varenicline tartrate (Chantix Starting Month Box) PO PER PKG DIR warfarin 5 mg See Protocol PO DAILY Nursing Note INR: 3.1 almost therapeutic range Medications and supplements reviewed quit smoking over a month ago - may be why INR elevated- enc greens and blueberries to help lower the INR and heal the lungs Denies any signs and symptoms of bleeding or bruising or clotting. Bleeding, bruising, clotting discussed Has lung CT 08/07/24 Nutritional guidance given - greens and blueberries Dose: 2.5mg x 2 days/ 5mg x 5 days F/U INR: 1 month - same day as pulmonary appt with Dr August Patient verbalizes understanding of instructions given Anti-Coag Initial Assessment Social Hx Patient Tobacco Use Status: Former Tobacco user Tobacco use type: Cigarette alcohol intake: current Alcohol intake frequency: other Cardiovascular Hx: HTN, CHF, Arrhythmias and Other Lung Disease HX: COPD and Other Blood Disorder Hx: Anemia GI Hx: Diverticulosis Neurological Hx: Other Cancer HX: No Psych. Illness/Depression: No Questionnaires HAS-BLED Does the patient had uncontrolled Hypertension?: No Does the patient have renal disease?: No Does the patient have liver disease?: No Does the patient have a history of stroke?: No Has the patient had major bleeding or predisposition to bleeding?: No Does the patient have labile INRs?: No Is the patient over 65 years of age?: Yes Is the patient on medications that gives them a predisposition to bleeding?: Yes Does the patient use alcohol?: Yes HAS-BLED Score: 3 CHADSVASC Age: 66-74 Gender: Male Does the patient have a history of CHF?: Yes Does the patient have a history of Hypertension?: Yes Does the patient have a history of Stroke/TIA/Thromboembolism?: No Does the patient have a history of Vascular Disease (prior SC, PAD or aortic plaque)?: Yes (PVD) Does the patient have a history of Diabetes?: No CHADS VACS Score: 4 Destiney Prediction Score Rsk VTE Active Cancer: No Previous VTE, excluding superficial vein thrombosis: No Reduced mobility: Yes Already known Thrombophilic Condition: No With-in last month Trauma and/or Surgery: No Elderly 70 year or older: Yes Heart and/or Respiratory Failure: Yes Acute Myocardial infarction and/or Ischemic Stroke: No Acute Infection and/or Rheumatologic Disorder: No Obesity (BMI 30 or greater): Yes Ongoing Hormonal Treatment: No Score: 6 Destiney Score less than 4; Low Risk of VTE Destiney Score 4 or greater; High Risk of VTE Coding Level of Care Code Est Patient Level 1 Diagnoses Current use of anticoagulant therapy Z79.01 Assessment & Plan Assessment & Plan (1) Current use of anticoagulant therapy: Code(s): Z79.01 - termite treater (current) use of anticoagulants Category: Medical
== END 2024-07-25 13:28 | disposition home or self-care (01) ==
LOC: HO.ACS 13:05
PROVIDERS: PCP Internal Medicine; Visit Provider Internal Medicine
DX: Z79.01 Long term (current) use of anticoagulants (principal)

== ENCOUNTER → 2024-07-25 13:05 | Outpatient (BNVA) | payer MEDICARE, SELFPAY | PROVIDERS: PCP Internal Medicine; Visit Provider Internal Medicine | DX: I48.0 Paroxysmal atrial fibrillation (principal); Z79.01 Long term (current) use of anticoagulants; Z51.81 Encounter for therapeutic drug level monitoring | CPT/HCPCS: 85610; 99211 ==

== ENCOUNTER 2024-08-07 15:12 | Outpatient (REF) | payer MEDICARE, SELFPAY ==
--- NOTE | ~2024-08-07 | CT_ITS ---
CLINICAL HISTORY: Z87.891 - Personal history of nicotine dependence CT lung cancer screening (LDCT) Comparison: None Technique: Axial CT images of the chest using low-dose technique. Referring provider counseled the patient on shared decision-making for LDCT screening. Additional counseling was provided on smoking cessation. Effective radiation dose total: DLP 47.7 mGycm, CTDIvol 1.4 mGy. Findings: Lung: Moderate centrilobular emphysema. There is bronchial wall thickening of the right lung. Increased peribronchial opacities of the right lung. There are calcified granulomas. The previously demonstrated small noncalcified nodule of the right lower lobe is not visualized. Coronary artery calcifications: Mild Limited upper abdomen: Unremarkable Other: Pacemaker Impression: LungRADS 2 - Benign Appearance: Continue annual screening with low dose Chest CT in 12 months. ##L2# There is interval progression of the bronchial wall thickening and peribronchial opacity of the right lung likely to be an infectious/inflammatory process. Category 1: Normal; continue annual screening Category 2: Benign appearance or behavior, continue annual screening Category 3: Probably benign, [address] recommended Category 4A: Suspicious, [address] recommended; may consider PET/CT Category 4B: Suspicious, Additional diagnostics and/or tissue sampling recommended Category 4X: Suspicious, Additional diagnostics and/or tissue sampling recommended Category 0: Recalls (incomplete screen due to Incomplete coverage, Noise, Respiratory motion, Expiration, Obscured by acute abnormality) This document has been electronically signed by: Kerline Alejandro MD on 08/08/2024 15:02:27
--- OUTSIDE RECORDS SUMMARY | 2024-08-07 17:30 | XMS_ITS | Encounter Summary ---
Author Organization [facility] Address [address] [place] [address] Care Team Providers Care Watch Repair Technician Name Role Phone Azalia Esposito MD Primary Care Provider Unavailable Azalia Esposito MD Primary Care Provider Unavailable Shaw Cervantes MD Unavailable [phone] Ryan Jenkins MD Unavailable [phone] Rosalva Stern PA-C Unavailable Charbel Poe Primary Care Provider Unavailabl e Encounter Details Date Type Department Care Team Description 07/18/2015 Oil Fire Specialist Report Medical Records [address] [place] [id number] [place] [address] Social History Tobacco Use Types Packs/Day Years Used Date Smoking Tobacco: Every Day Cigarettes 1.5 42 Smokeless Tobacco: Never Comments:quit for 11/2 days in 2009 / started smoking at 19 Alcohol Use Standard Drinks/Week Comments Yes 20 (1 standard drink = 0.6 oz pu re alcohol) C- A- G- E- Sex Assigned at Date Recorded Not on file documented as of this encounter Plan of Treatment Not on file documented as of this encounter Visit Diagnoses Not on filedocumented in this encounter Care Teams Watch Repair Technician Relationship Specialty Start Date End Date Azalia Esposito MD PCP - General Internal Medicine 12/02/1502/20/21 Azalia Esposito MD PCP - General 12/31/1411/30 Charbel Poe [address] [place] [address] PCP - General Internal Medicine 02/21/21 Shaw Cervantes MD [address] [place] [address] Specialist Cardiovascular Disease 02/18/21 Ryan Jenkins MD [address] [place] [address] Specialist Cardiology 02/18/21 Rosalva Stern PA-C [address] [place] [address] Specialist Cardiology 02/18/21 documented as of this encounter
--- OUTSIDE RECORDS SUMMARY | 2024-08-07 17:30 | XMS_ITS | Encounter Summary ---
Author Organization [facility] Address [address] [place] [address] Care Team Providers Care Sap Security Consultant Name Role Phone Shaw Cervantes MD Unavailable [phone] Ryan Jenkins MD Unavailable [phone] Rosalva Stern PA-C Unavailable Charbel Poe Primary Care Provider Unavailabl e Encounter Details Date Type Department Care Team Description 11/17/2021 Transfer Records Medical Records [address] [place] [id number] Abstract, Provider Social History Tobacco Use Types Packs/Day Years Used Date Smoking Tobacco: Every Day Cigarettes 0.3 42 Smokeless Tobacco: Never Alcohol Use Standard Drinks/Week Comments Yes 0 (1 standard drink = 0.6 oz pur e alcohol) Sex Assigned at Date Recorded Not on file documented as of this encounter Plan of Treatment Not on file documented as of this encounter Visit Diagnoses Not on filedocumented in this encounter Care Teams Sap Security Consultant Relationship Specialty Start Date End Date Charbel Poe [address] [facility] [address] [place] [address] PCP - General Internal Medicine 02/21/21 Shaw Cervantes MD [facility] [address] [place] [address] Specialist Cardiovascular Disease 02/18/21 Ryan Jenkins MD [address] [facility] [address] [place] [address] Specialist Cardiology 02/18/21 Rosalva Stern PA-C [address] [place] [address] Specialist Cardiology 02/18/21 documented as of this encounter
--- OUTSIDE RECORDS SUMMARY | 2024-08-07 17:30 | XMS_ITS | Encounter Summary ---
Author Organization [facility] Address [address] [place] [address] Care Team Providers Care Fuel Attendant Name Role Phone Azalia Esposito MD Primary Care Provider Unavailable Shaw Cervantes MD Unavailable [phone] Ryan Jenkins MD Unavailable [phone] Rosalva Stern PA-C Unavailable Charbel Poe Primary Care Provider Unavailabl e Reason for Visit * Reason Onset Date Comments [facility] Call 09/15/2019 Encounter Details Date Type Department Care Team Description 09/15/2019 Telephone Adult Medicine - [address] [address] Azalia Esposito MD [facility] Call Social History Tobacco Use Types Packs/Day Years Used Date Smoking Tobacco: Every Day Cigarettes 0.3 42 Vapor Smokeless Tobacco: Never Comments:quit for 11/2 days in 2009 / started smoking at 19 Alcohol Use Standard Drinks/Week Comments Yes 20 (1 standard drink = 0.6 oz pu re alcohol) C- A- G- E- Sex Assigned at Date Recorded Not on file documented as of this encounter Miscellaneous Notes * Telephone Encounter - Alisson Morocho M.A. - 09/15/2019 4:52 PM EDT Spoke with Marjorie at [facility] and advised her of message. * Telephone Encounter - Azalia Esposito MD - 09/15/2019 3:47 PM EDT If his weight goes up 4 lbs or more, they should let us know * Telephone Encounter - Prince Boyd - 09/15/2019 3:18 PM EDT [facility] CALL Which [facility] office is calling? Jacia arianna simms Full name of caller: The caller is A nurse Is the caller at the patients home?: NO Reason for call: Would like orders for weight perimeters Does caller need an urgent call back? NO Was CONTACT Telephone # obtained above?: YES Fax #: documented in this encounter Plan of Treatment Not on file documented as of this encounter Visit Diagnoses Not on filedocumented in this encounter Care Teams Fuel Attendant Relationship Specialty Start Date End Date Timmy-Azalia Recinos MD PCP - General Internal Medicine 12/02/1502/20/21 Charbel Poe [address] [place] [address] PCP - General Internal Medicine 02/21/21 Shaw Cervantes MD [address] [place] [address] Specialist Cardiovascular Disease 02/18/21 Ryan Jenkins MD [address] [place] [address] Specialist Cardiology 02/18/21 Rosalva Stern PA-C [address] [place] [address] Specialist Cardiology 02/18/21 documented as of this encounter
--- OUTSIDE RECORDS SUMMARY | 2024-08-07 17:30 | XMS_ITS | Encounter Summary ---
Author Organization [facility] Address [address] [place] [address] Care Team Providers Care Kier Boiler Name Role Phone Azalia Espsoito MD Primary Care Provider Unavailable Azalia Esposito MD Primary Care Provider Unavailable Shaw Cervantes MD Unavailable [phone] Ryan Jenkins MD Unavailable [phone] Rosalva Stern PA-C Unavailable Charbel Poe Primary Care Provider Unavailabl e Reason for Visit * Reason Onset Date Comments Strategic Analyst Feedback 01/23/2015 Pulmonology Encounter Details Date Type Department Care Team Description 01/23/2015 Telephone Pulmonology [address] [place] [address] Kb Stack MD Strategic Analyst Feedback (Pulmonology) Social History Tobacco Use Types Packs/Day Years [...] encounter Miscellaneous Notes * Telephone Encounter - Kb Stack MD - 01/23/2015 12:14 PM EDT I placed a referral to [facility], Do they not accept his ins? * Telephone Encounter - Alan Caicedo - 01/23/2015 9:[address] Stack You have placed a referral to see [facility]. Unfortunately, their office does not acceptthis patient's health insurance. A new order is required to schedule patient externally. Please review this patient???s new referral request. The referral has been pended. Please complete the following: If approved> sign order If denied>please give instructions and route to your practice nursing pool. Practice nurse should inform referrals and the patient if denied. Thank you, Rich documented in this encounter Plan of Treatment Not on file documented as of this encounter Visit Diagnoses Not on filedocumented in this encounter Care Teams Kier Boiler Relationship Specialty Start Date End Date Timmy-Azalia Recinos MD PCP - General Internal Medicine 12/02/1502/20/21 Timmy-Azalia Recinos MD PCP - General 12/31/1411/30 Charbel Poe [address] [facility] [address] [place] [address] PCP - General Internal Medicine 02/21/21 Shaw Cervantes MD [address] [place] [address] Specialist Cardiovascular Disease 02/18/21 Ryan Jenkins MD [address] [place] [address] Specialist Cardiology 02/18/21 Rosalva Stern PA-C [address] [facility] [address] [place] [address] Specialist Cardiology 02/18/21 documented as of this encounter
--- OUTSIDE RECORDS SUMMARY | 2024-08-07 17:30 | XMS_ITS | Clinical Summary ---
Author Organization [facility] Address [address] [place] [address] Care Team Providers Care Case Hardener Name Role Phone Charbel Poe MD Primary Care Provider [phone] Surgical History Surgery Date Site/Laterality Comments OTHER SURGICAL HISTORY PROCEDURE: DENIES PREVIOUS SURGERY COLONOSCOPY 07/09/2009 PROCEDURE: HISTORICAL COLONOSCOPY; COMMENT: [facility]. Diverticulosis. UPPER GASTROINTESTINAL ENDOSCOPY 07/09/2009 PROCEDURE: [place] UPPER GI ENDOSCOPY PERFORMED; COMMENT: [facility], GI bleed. No significant abnormalities. Medical History Medical History Date Comments Iron deficiency anemia 07/16/2009 DX:Iron d eficiency anemia Tobacco abuse 07/16/2009 DX:Tobacco abuse ; COMMENT: Has tried Wellbutrin, Chantix, hypnotherapy, nicotine patch and gum 10/22 - [employer] unable to contact after 5 attempts Diverticulosis, sigmoid 07/16/2009 DX:Diver ticulosis, sigmoid; COMMENT: Lower GI bleed 06/23. Admitted to [facility]. Colonoscopy 06/23. 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 Stack Severe obstructive disease by [...] Recorded Sex Assigned at Not on file Legal Sex Male 4:39 AM EST Gender Identity Not on file Sexual Orientation [...] 03/14/2018, 04/29/2016, Additional history exists Pneumococcal Vaccine: 50+ Years Completed 09/13/2018, 09/13/2017, 05/14/2011 HIB Vaccines [...] patient's age to complete this topic Meningococcal B Vacine Aged Out No lo nger eligible based on patient's age to complete this topic RSV Immunization Patients Under 20 months Aged Out No longer eligible based on patient's age to complete this topic Varicella Vaccines Aged Out No longer eligible based on patient's age to complete this topic Advance Directives Documents on File Type Date Recorded 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
--- OUTSIDE RECORDS SUMMARY | 2024-08-07 17:30 | XMS_ITS | Encounter Summary ---
Author Organization [facility] Address [address] [place] [address] Care Team Providers Care Photographic Machine Operator Name Role Phone Shaw Cervantes MD Unavailable [phone] Ryan Jenkins MD Unavailable [phone] Rosalva Stern PA-C Unavailable Charbel Poe Primary Care Provider Unavailabl e Reason for Visit * Reason Onset Date Comments E-prescribe Rx Request 06/10/2021 incoming Fax [facility] Pharmacy Lopressor Encounter Details Date Type Department Care Team Description 06/10/2021 Refill Cardio PVC POC 154 [address] [facility] [address] [place] [address] Rosalva Stern PA-C [address] [place] [address] [id number] E-prescribe Rx Request (incoming Fax [facility] Pharmacy Lopressor ) Social History Tobacco Use Types Packs/Day Years Used Date Smoking Tobacco: Every Day Cigarettes 0.3 42 Smokeless Tobacco: Never Alcohol Use Standard Drinks/Week Comments Yes 0 (1 standard drink = 0.6 oz pur e alcohol) Sex Assigned at Date Recorded Not on file documented as of this encounter Miscellaneous Notes * Telephone Encounter - Michelle Maloney C.M.A. - 06/10/2021 10:21 AM EST ASTRID 02/2020 With [facility] Due for f/u . Please arrange f/u appt documented in this encounter Plan of Treatment Not on file documented as of this encounter Visit Diagnoses Not on filedocumented in this encounter Care Teams Photographic Machine Operator Relationship Specialty Start Date End Date Charbel Poe [address] [place] [address] PCP - General Internal Medicine 02/21/21 Shaw Cervantes MD [address] [place] [address] Specialist Cardiovascular Disease 02/18/21 Ryan Jenkins MD [address] [place] [address] Specialist Cardiology 02/18/21 Rosalva Stern PA-C [address] [facility] [address] [place] [address] Specialist Cardiology 02/18/21 documented as of this encounter
--- OUTSIDE RECORDS SUMMARY | 2024-08-07 17:30 | XMS_ITS | Encounter Summary ---
Author Organization [facility] Address [address] [place] [address] Care Team Providers Care Delivery Supervisor Name Role Phone Azalia Esposito MD Primary Care Provider Unavailable Shaw Cervantes MD Unavailable [phone] Ryan Jenkins MD Unavailable [phone] Rosalva Stern PA-C Unavailable Charbel Poe Primary Care Provider Unavailabl e Reason for Visit * Reason Onset Date Comments medication problems 11/16/2017 Encounter Details Date Type Department Care Team Description 11/16/2017 Telephone Adult [facility] - [address] [address] Azalia Esposito MD medication problems Social History Tobacco Use Types Packs/Day Years Used Date Smoking Tobacco: Every Day Cigarettes 0.5 42 Smokeless Tobacco: Never Comments:quit for 11/2 days in 2009 / started smoking at 19 Alcohol Use Standard Drinks/Week Comments Yes 20 (1 standard drink = 0.6 oz pu re alcohol) C- A- G- E- Sex Assigned at Date Recorded Not on file documented as of this encounter Miscellaneous Notes * Telephone Encounter - Leonardo Coleman M.A. - 11/16/2017 4:04 PM EDT Placed in U pt aware * Telephone Encounter - Azalia Esposito MD - 11/16/2017 3:58 PM EDT Printed and in my outbox * Telephone Encounter - Mercedes Wadsworth - 11/16/2017 3:47 PM EDT Who is calling? The patient Name of the medication budesonide-formoterol (SYMBICORT) 80-4.5 MCG/ACT inhaler What is the specific problem or interaction? Pt needs this printed and placed in PPU so he can pickit up with his other medication If the patient is having a problem with taking the med - how long has the problem been going on? N/A documented in this encounter Plan of Treatment Not on file documented as of this encounter Visit Diagnoses Not on filedocumented in this encounter Care Teams Delivery Supervisor Relationship Specialty Start Date End Date Azalia Esposito MD PCP - General Internal Medicine 12/02/1502/20/21 Charbel Poe [address] [address] PCP - General Internal Medicine 02/21/21 Shaw Cervantes MD [address] [address] Specialist Cardiovascular Disease 02/18/21 Ryan Jenkins MD [address] [facility] [address] [place] [address] Specialist Cardiology 02/18/21 Rosalva Stern PA-C [address] [address] Specialist Cardiology 02/18/21 documented as of this encounter
--- OUTSIDE RECORDS SUMMARY | 2024-08-07 17:30 | XMS_ITS | Encounter Summary ---
Author Organization [facility] Address [address] [place] [address] Care Team Providers Care Bullet Casting Operator Name Role Phone Timmy-Azalia Recinos MD Primary Care Provider Unavailable Shaw Cervantes MD Unavailable [phone] Ryan Jenkins MD Unavailable [phone] Rosalva Stern PA-C Unavailable Charbel Poe Primary Care Provider Unavailabl e Encounter Details Date Type Department Care Team Description 02/05/2016 Internet Marketing Intern Report Medical Records [address] [place] [address] Abstract, Provider Social History Tobacco Use Types [...] on filedocumented in this encounter Care Teams Bullet Casting Operator Relationship Specialty Start Date End Date Azalia Esposito MD PCP - General Internal Medicine 12/02/1502/20/21 Charbel Poe [address] [address] PCP - General Internal Medicine 02/21/21 Shaw Cervantes MD [address] [place] [address] Specialist Cardiovascular Disease 02/18/21 Ryan Jenkins MD [address] [place] [address] Specialist Cardiology 02/18/21 Rosalva Stern PA-C [address] [place] [address] Specialist Cardiology 02/18/21 documented as of this encounter
--- OUTSIDE RECORDS SUMMARY | 2024-08-07 17:30 | XMS_ITS | Encounter Summary ---
Author Organization [facility] Address [address] [place] [address] Care Team Providers Care Electronic News Gathering Editor Name Role Phone Timmy-Azalia Recinos MD Primary Care Provider Unavailable Shaw Cervantes MD Unavailable [phone] Ryan Jenkins MD Unavailable [phone] Rosalva Stern PA-C Unavailable Charbel Poe Primary Care Provider Unavailabl e Encounter Details Date Type Department Care Team Description 08/25/2019 [facility] Medical Records [address] [place] [address] [place] [address] [place] [address] [place] [address] Social History Tobacco Use Types Packs/Day Years [...] on filedocumented in this encounter Care Teams Electronic News Gathering Editor Relationship Specialty Start Date End Date Azalia Esposito MD PCP - General Internal Medicine 12/02/1502/20/21 Charbel Poe [address] [place] [address] PCP - General Internal Medicine 02/21/21 Shaw Cervantes MD [address] [place] [address] Specialist Cardiovascular Disease 02/18/21 Ryan Jenkins MD [address] [place] [address] Specialist Cardiology 02/18/21 Rosalva Stern PA-C [address] [place] [address] Specialist Cardiology 02/18/21 documented as of this encounter
--- OUTSIDE RECORDS SUMMARY | 2024-08-07 17:30 | XMS_ITS | Encounter Summary ---
Author Organization [facility] Address [address] [place] [address] Care Team Providers Care Data Modeling Architect Name Role Phone Shaw Cervantes MD Unavailable Ryan Jenkins MD Unavailable Rosalva Stern PA-C Unavailable Charbel Poe Primary Care Provider Unavailabl e Encounter Details Date Type Department Care Team Description 06/18/2023 Orders Only [facility] Thoracic Surgery [place] [address] [facility] [address] [place] [address] Agnieszka Zapata MD 299 [facility] [address] [place] [address] Pulmonary nodules (Primary Dx) Social History Tobacco Use Types Packs/Day Years Used Date Smoking Tobacco: Every Day Cigarettes 0.3 42 Smokeless Tobacco: Never Alcohol Use Standard Drinks/Week Comments Yes 0 (1 standard drink = 0.6 oz pur e alcohol) Sex Assigned at Date Recorded Not on file documented as of this encounter Plan of Treatment Not on file documented as of this encounter Visit Diagnoses Diagnosis Pulmonary nodules- Primary Other nonspecific abnormal finding of lung field documented in this encounter Care Teams Data Modeling Architect Relationship Specialty Start Date End Date Charbel Poe [address] [facility] [address] [place] [address] PCP - General Internal Medicine 02/21/21 Shaw Cervantes MD [address] [place] [address] Specialist Cardiovascular Disease 02/18/21 Ryan Jenkins MD [address] [place] [address] Specialist Cardiology 02/18/21 Rosalva Stenr PA-C [address] [place] [address] Specialist Cardiology 02/18/21 documented as of this encounter
--- OUTSIDE RECORDS SUMMARY | 2024-08-07 17:30 | XMS_ITS | Encounter Summary ---
Author Organization [facility] Address [address] [place] [address] Care Team Providers Care Home Care Physical Therapist Name Role Phone Timmy-Azalia Recinos MD Primary Care Provider Unavailable Shaw Cervantes MD Unavailable [phone] Ryan Jenkins MD Unavailable [phone] Rosalva Stern PA-C Unavailable Charbel Poe Primary Care Provider Unavailabl e Encounter Details Date Type Department Care Team Description 02/07/2020 [facility] Medical Records [address] [place] [address] Ryan Jenkins MD [address] [address] Social History Tobacco Use Types Packs/Day Years [...] on filedocumented in this encounter Care Teams Home Care Physical Therapist Relationship Specialty Start Date End Date Azalia Esposito MD PCP - General Internal Medicine 12/02/1502/20/21 Charbel Poe [address] [address] PCP - General Internal Medicine 02/21/21 Shaw Cervantes MD [address] [place] [address] Specialist Cardiovascular Disease 02/18/21 Ryan Jenkins MD [address] [place] [address] Specialist Cardiology 02/18/21 Rosalva Stern PA-C [address] [place] [address] Specialist Cardiology 02/18/21 documented as of this encounter
--- OUTSIDE RECORDS SUMMARY | 2024-08-07 17:30 | XMS_ITS | Encounter Summary ---
Author Organization [facility] Address [address] [place] [address] Care Team Providers Care Database Consultant Name Role Phone Azalia Esposito MD Primary Care Provider Unavailable Shaw Cervantes MD Unavailable [phone] Ryan Jnekins MD Unavailable [phone] Rosalva Stern PA-C Unavailable Charbel Poe Primary Care Provider Unavailabl e Reason for Referral * EXTERNAL (Routine) - Authorized/Booked Specialty Diagnoses / Procedures Referred By Contmima dumont Referred To Contact Ophthalmology Procedures REFERRAL TO EXTERNAL OPHTHALMOLOGY Azalia Esposito MD [address] [place] [address] [facility] [address] [place] [address] Referral ID Status Reason Start Date Expiration Date V isits Requested Visits Authorized SEE NOTE Authorized/B ooked 09/26/2017 12/27/2017 1 1 Reason for Visit * Reason Onset Date Comments Podiatrist Orthopedic Feedback 09/17/2017 Encounter Details Date Type Department Care Team Description 09/17/2017 Telephone Adult Medicine - [place] [address] [place] [address] Azalia Esposito MD Podiatrist Orthopedic Feedback Social History Tobacco Use Types Packs/Day Years [...] Telephone Encounter - Leonardo Coleman M.A. - 09/27/2017 1:06 PM EDT Spoke with patient and informed message below. * Telephone Encounter - Leonardo Coleman M.A. - 09/27/2017 10:58 AM EDT Message left for patient to call office back. * Telephone Encounter - Azalia Esposito MD - 09/26/2017 10:01 PM EDT I placed external order * Telephone Encounter - Leonardo Coleman M.A. - 09/22/2017 2:39 PM EDT Spoke to optomology in [place] they confirmed that Dr. Warner would have to have an outside department for optomolgy do this. * Telephone Encounter - Leonardo Coleman M.A. - 09/22/2017 11:17 AM EDT Called optomology in [place] BSR put message in with Dr. Warner's question, should be getting acall back with an answer if this can be done soon. * Telephone Encounter - Azalia Esposito MD - 09/20/2017 8:29 AM EDT Can you please call our optometry department and see if this is something they can do? * Telephone Encounter - Frieda Almeida - 09/17/2017 1:21 PM EDT , Please see request below. Should we place the order to optometry? Should he be seen by an it coordinator or do you need patient to come in to see you in the office? Please advise. Thank you, Frieda Referrals Department * Telephone Encounter - Ailyn Fragoso - 09/17/2017 1:03 PM EDT Request for a referral to a [facility] Specialist for a patient with a [facility] PCP. If patient does NOT have a [facility] PCP they must obtain a referral from their PCP before being seen-do not submit request to Referrals department-contact patient. Karthik BLAIR and Deondre BLAIR should not see patients with community PCP's as they are not billed as specialists. 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- pt needs to have a note clearing him from an eye doctor to drive for work Date of appoinment: NA If retro, date referral needs to start: HERNANDEZ Esposito Payor: SRIDHARNH/ FFS / Plan: [facility] MDCR-ADV HMO $20/$40 / Product Type: MEDICARE [id number] documented in this encounter Plan of Treatment Not on file documented as of this encounter Visit Diagnoses Not on filedocumented in this encounter Care Teams Database Consultant Relationship Specialty Start Date End Date Azalia Esposito MD PCP - General Internal Medicine 12/02/1502/20/21 Charbel Poe [address] [address] PCP - General Internal Medicine 02/21/21 Shaw Cervantes MD [address] [place] [address] Specialist Cardiovascular Disease 02/18/21 Ryan Jenkins MD 300 [facility] [address] [place] [address] Specialist Cardiology 02/18/21 Rosalva Stern PA-C [address] [facility] [address] [place] [address] Specialist Cardiology 02/18/21 documented as of this encounter
--- OUTSIDE RECORDS SUMMARY | 2024-08-07 17:30 | XMS_ITS | Encounter Summary ---
Author Organization [facility] Address [address] [place] [address] Care Team Providers Care Geoduck Diver Name Role Phone Sudarshan Deluca Primary Care Provider Unav ailable Shin Núñez MD Primary Care Provider [phone] Azalia Esposito MD Primary Care Provider Unavailable Azalia Esposito MD Primary Care Provider Unavailable Shaw Cervantes MD Unavailable [phone] Ryan Jenkins MD Unavailable [phone] Rosalva Stern PA-C Unavailable Charbel Poe Primary Care Provider Unavailabl e Encounter Details Date Type Department Care Team Description 07/11/2009 Hospital Medical Records [address] [place] [address] Onesimo Rockwell Social History Tobacco Use Types Packs/Day Years [...] on filedocumented in this encounter Care Teams Geoduck Diver Relationship Specialty Start Date End Date Sudarshan Deluca PCP - General 05/06/10 12/30/14 Shin Núñez MD [address] [place] [address] PCP - General 07/08/09 05/05/10 Timmy-Azalia Recinos MD [address] [place] [address] PCP - General Internal Medicine 12/02/15 02/20/21 Azalia Esposito MD [address] [place] [address] PCP - General 12/31/14 12/01/15 Charbel Poe [address] [place] [address] PCP - General Internal Medicine 02/21/21 Shaw Cervantes MD [address] [place] [address] Specialist Cardiovascular Disease 02/18/21 Ryan Jenkins MD [address] [place] [address] Specialist Cardiology 02/18/21 Rosalva Stern PA-C [address] [facility] [address] [place] [address] Specialist Cardiology 02/18/21 documented as of this encounter
--- OUTSIDE RECORDS SUMMARY | 2024-08-07 17:30 | XMS_ITS | Encounter Summary ---
Author Organization [facility] Address [address] [place] [address] Care Team Providers Care Special Procedure Tech Name Role Phone Timmy-Azalia Recinos MD Primary Care Provider Unavailable Shaw Cervantes MD Unavailable [phone] Ryan Jenkins MD Unavailable [phone] Rosalva Stern PA-C Unavailable Charbel Poe Primary Care Provider Unavailabl e Encounter Details Date Type Department Care Team Description 03/11/2020 Continuous Yarn Dyeing Machine Operator Report Medical Records [address] [place] [address] Rosalva Stern PA-C [address] [place] [id number] Social History Tobacco Use Types Packs/Day Years [...] on filedocumented in this encounter Care Teams Special Procedure Tech Relationship Specialty Start Date End Date Azalia Esposito MD PCP - General Internal Medicine 12/02/1502/20/21 Charbel Poe [address] [address] PCP - General Internal Medicine 02/21/21 Shaw Cervantes MD [address] [place] [address] Specialist Cardiovascular Disease 02/18/21 Ryan Jenkins MD [address] [place] [address] Specialist Cardiology 02/18/21 Rosalva Stern PA-C [address] [place] [address] Specialist Cardiology 02/18/21 documented as of this encounter
--- OUTSIDE RECORDS SUMMARY | 2024-08-07 17:30 | XMS_ITS | Encounter Summary ---
Author Organization [facility] Address [address] [place] [address] Care Team Providers Care Regrader Name Role Phone [place]-Azalia Recinos MD Primary Care Provider Unavailable Shaw Cervantes MD Unavailable [phone] Ryan Jenkins MD Unavailable [phone] Rosalva Stern PA-C Unavailable Charbel Poe Primary Care Provider Unavailthuan e Encounter Details Date Type Department Care Team Description 03/17/2018 Orders Only Pulmonology - [place] [address] [facility] [address] [place] [address] Miky Lockett MD [address] [facility] [address] [place] [address] Stage 3 severe COPD by GOLD classification (HCC); Nicotine dependence, uncomplicated, unspecified nicotine product type; Pulmonary nodules; Mixed simple and mucopurulent chronic bronchitis (HCC); Encounter for screening for malignant neoplasm of lung; Encounter for smoking cessation counseling; Hypoxia; COPD with hypoxia (HCC); Advanced COPD (HCC) Social History Tobacco Use Types Packs/Day Years [...] on file documented as of this encounter Procedures Procedure Name Priority Date/Time Associated Diagnosis Comments [place] NONINVASIVE EAR/PULSE OXIMETRY OVERNIGHT MONITOR Routine 02/14/2018 Stage 3 severe COPD by GOLD classification (HCC) Nicotine dependence, uncomplicated, unspecified nicotine product type Pulmonary nodules Mixed simple and mucopurulent chronic bronchitis (HCC) Encounter for screening for malignant neoplasm of lung Encounter for smoking cessation counseling Hypoxia COPD with hypoxia (HCC) Advanced COPD (HCC) documented in this encounter Results * OXIMETRY,OVERNITE (02/14/2018) Narrative Authorizing Provider Result uSkhjinder Lockett MD PERFORMABL ES documented in this encounter Visit Diagnoses Diagnosis Stage 3 severe COPD by GOLD classification (HCC) Nicotine dependence, uncomplicated, unspecified nicotine product type Pulmonary nodules Other nonspecific abnormal finding of lung field Mixed simple and mucopurulent chronic bronchitis (HCC) Other chronic bronchitis Encounter for screening for malignant neoplasm of lung Encounter for smoking cessation counseling Counseling on substance use and abuse Hypoxia Hypoxemia COPD with hypoxia (HCC) Advanced COPD (HCC) documented in this encounter Care Teams Regrader Relationship Specialty Start Date End Date [place]-Azalia Recinos MD PCP - General Internal Medicine 12/02/1502/20/21 Charbel Poe [address] [address] PCP - General Internal Medicine 02/21/21 Shaw Cervantes MD [address] [facility] [address] [place] [address] Specialist Cardiovascular Disease 02/18/21 Ryan Jenkins MD 300 [facility] [address] [place] [address] Specialist Cardiology 02/18/21 Rosalva Stern PA-C 300 [facility] [address] [place] [address] Specialist Cardiology 02/18/21 documented as of this encounter
--- OUTSIDE RECORDS SUMMARY | 2024-08-07 17:30 | XMS_ITS | Encounter Summary ---
Author Organization [facility] Address [address] [place] [address] Care Team Providers Care Interdisciplinary Professor Name Role Phone [place]-Azalia Recinos MD Primary Care Provider Unavailable Shaw Cervantes MD Unavailable [phone] Ryan Jenkins MD Unavailable [phone] Rosalva Stern PA-C Unavailable Charbel Poe Primary Care Provider Unavailabl e Encounter Details Date Type Department Care Team Description 05/10/2019 Telephone Adult [address] [address] Laura Rucker PA-C Social History Tobacco Use Types Packs/Day Years [...] encounter Miscellaneous Notes * Telephone Encounter - Sho Gates M.A. - 06/12/2019 3:17 PM EST 2nd attempt Left message for pt to returned my call [phone] * Telephone Encounter - Beverly Reid M.A. - 05/10/2019 1:42 PM EST [phone] (home) [phone] (work) Lvm for pt to return call. * Telephone Encounter - Laura Loredo PA-C - 05/10/2019 11:42 AM EST Please call patient. I discussed his case with the supervising physician Dr. Lane. It was discussed that we would start him on a dose of clindamycin 300 mg 4 times a day for 5 days. Medication has been sent to his pharmacy. Please stress the importance of him making an appointment to see his dentist. Please stressthat not following-up with his dentist, can cause adverse outcomes and cause his infection to worsen or spread. He needs to make an emergent dentist appointment within the next week. documented in this encounter Plan of Treatment Not on file documented as of this encounter Visit Diagnoses Not on filedocumented in this encounter Care Teams Interdisciplinary Professor Relationship Specialty Start Date End Date [place]-Azalia Recinos MD PCP - General Internal Medicine 12/02/1502/20/21 Charbel Poe 300 [facility] [address] [place] [address] PCP - General Internal Medicine 02/21/21 Shaw Cervantes MD [address] [place] [address] Specialist Cardiovascular Disease 02/18/21 Ryan Jenkins MD [address] [place] [address] Specialist Cardiology 02/18/21 Rosalva Stern PA-C [address] [place] [address] Specialist Cardiology 02/18/21 documented as of this encounter
--- OUTSIDE RECORDS SUMMARY | 2024-08-07 17:30 | XMS_ITS | Encounter Summary ---
Author Organization [facility] Address [address] [place] [address] Care Team Providers Care Utilization Management Manager Name Role Phone Azalia Esposito MD Primary Care Provider Unavailable Azalia Esposito MD Primary Care Provider Unavailable Shaw Cervantes MD Unavailable [phone] Ryan Jenkins MD Unavailable [phone] Rosalva Stern PA-C Unavailable Charbel Poe Primary Care Provider Unavailabl e Encounter Details Date Type Department Care Team Description 11/12/2015 Venetian Blind Machine Operator Report Medical Records [address] [place] [address] Abstract, Provider Social History Tobacco Use Types [...] on filedocumented in this encounter Care Teams Utilization Management Manager Relationship Specialty Start Date End Date Azalia Esposito MD PCP - General Internal Medicine 12/02/1502/20/21 Azalia Esposito MD PCP - General 12/31/1411/30 Charbel Poe [address] [place] [address] PCP - General Internal Medicine 02/21/21 Shaw Cervantes MD [address] [place] [address] Specialist Cardiovascular Disease 02/18/21 Ryan Jenkins MD [address] [place] [address] Specialist Cardiology 02/18/21 Rosalva Stern PA-C [address] [place] [address] Specialist Cardiology 02/18/21 documented as of this encounter
--- OUTSIDE RECORDS SUMMARY | 2024-08-07 17:30 | XMS_ITS | Encounter Summary ---
Author Organization [facility] Address [address] [place] [address] Care Team Providers Care Control Valve Mechanic Name Role Phone Azalia Esposito MD Primary Care Provider Unavailable Azalia Esposito MD Primary Care Provider Unavailable Shaw Cervantes MD Unavailable [phone] Ryan Jenkins MD Unavailable [phone] Rosalva Stern PA-C Unavailable Charbel Poe Primary Care Provider Unavailabl e Encounter Details Date Type Department Care Team Description 12/31/2014 Orders Only Adult Medicine - [address] [address] Hari Cristobal PA-C [address] [place] [id number] COPD (chronic obstructive pulmonary disease) (Primary Dx) Social History Tobacco Use Types [...] Procedure Name Priority Date/Time Associated Diagnosis Comments ALBUTEROL IPRATROP NON-COMP Routine 12/31/2014 6:35 PM EDT COPD (chronic obstructive pulmonary disease) SC NONINVASIVE EAR/PULSE OXIMETRY SINGLE DETER Routine 12/31/2014 6:35 PM EDT COPD (chronic obstructive pulmonary disease) SC PRESSURIZED/NONPRESSURI ZED INHALATION TREATMENT Routine 12/31/2014 6:35 PM EDT COPD (chronic obstructive pulmonary disease) documented in this encounter Visit Diagnoses Diagnosis COPD (chronic obstructive pulmonary disease) (HCC)- Primary Chronic airway obstruction, not elsewhere classified documented in this encounter Care Teams Control Valve Mechanic Relationship Specialty Start Date End Date [place]-Azalia Recinos MD PCP - General Internal Medicine 12/02/1502/20/21 [place]-Azalia Recinos MD PCP - General 12/31/1411/30 Charbel Poe [address] [place] [address] PCP - General Internal Medicine 02/21/21 Shaw Cervantes MD [address] [place] [address] Specialist Cardiovascular Disease 02/18/21 Ryan Jenkins MD [address] [place] [address] Specialist Cardiology 02/18/21 Rosalva Stern PA-C [address] [place] [address] Specialist Cardiology 02/18/21 documented as of this encounter
--- OUTSIDE RECORDS SUMMARY | 2024-08-07 17:30 | XMS_ITS | Encounter Summary ---
Author Organization [facility] Address [address] [place] [address] Care Team Providers Care Manager Application Development Name Role Phone Azalia Esposito MD Primary Care Provider Unavailable Azalia Esposito MD Primary Care Provider Unavailable Shaw Cervantes MD Unavailable Ryan Jenkins MD Unavailable [phone] Rosalva Stern PA-C Unavailable Charbel Poe Primary Care Provider Unavailabl e Encounter Details Date Type Department Care Team Description 11/13/2015 Supervisor Vacuum Metalizing Report Medical Records [address] [place] [address] Abstract, Provider Social History Tobacco Use Types [...] on filedocumented in this encounter Care Teams Manager Application Development Relationship Specialty Start Date End Date Azalia Esposito MD PCP - General Internal Medicine 12/02/1502/20/21 Azalia Esposito MD PCP - General 12/31/1411/30 Charbel Poe [address] [place] [address] PCP - General Internal Medicine 02/21/21 Shaw Cervantes MD [address] [place] [address] Specialist Cardiovascular Disease 02/18/21 Ryan Jenkins MD [address] [place] [address] Specialist Cardiology 02/18/21 Rosalva Stern PA-C [address] [place] [address] Specialist Cardiology 02/18/21 documented as of this encounter
--- OUTSIDE RECORDS SUMMARY | 2024-08-07 17:30 | XMS_ITS | Encounter Summary ---
Author Organization [facility] Address [address] [place] [address] Care Team Providers Care Coastal/Harbor Defense Officer Name Role Phone Azalia Esposito MD Primary Care Provider Unavailable Shaw Cervantes MD Unavailable [phone] Ryan Jenkins MD Unavailable [phone] Rosalva Stern PA-C Unavailable Charbel Poe Primary Care Provider Unavailabl e Encounter Details Date Type Department Care Team Description 08/09/2019 [facility] Medical Records [address] [place] [address] Tez Coyle MD Social History Tobacco Use Types Packs/Day Years [...] on filedocumented in this encounter Care Teams Coastal/Harbor Defense Officer Relationship Specialty Start Date End Date Azalia Esposito MD PCP - General Internal Medicine 12/02/1502/20/21 Charbel Poe [address] [place] [address] PCP - General Internal Medicine 02/21/21 Shaw Cervantes MD [address] [facility] [address] [place], [place] [address] Specialist Cardiovascular Disease 02/18/21 Ryan Jenkins MD [address] [place] [address] Specialist Cardiology 02/18/21 Rosalva Stern PA-C [address] [place] [address] Specialist Cardiology 02/18/21 documented as of this encounter
--- OUTSIDE RECORDS SUMMARY | 2024-08-07 17:30 | XMS_ITS | Encounter Summary ---
Author Organization [facility] Address [address] [place] [address] Care Team Providers Care Manager Estate Name Role Phone [place]-Azalia Recinos MD Primary Care Provider Unavailable Shaw Cervantes MD Unavailable [phone] Ryan Jenkins MD Unavailable [phone] Rosalva Stern PA-C Unavailable Charbel Poe Primary Care Provider Unavailabl e Encounter Details Date Type Department Care Team Description 08/30/2019 [facility] Medical Records [address] [place] [address] Nella Pritchett, COLLOID MILL OPERATOR Social History Tobacco Use Types Packs/Day Years [...] filedocumented in this encounter Care Teams Manager Estate Relationship Specialty Start Date End Date Azalia Esposito MD PCP - General Internal Medicine 12/02/1502/20/21 Charbel Poe [address] [place] [address] PCP - General Internal Medicine 02/21/21 Shaw Cervantes MD Medical [facility] [address] [place], [place] [address] Specialist Cardiovascular Disease 02/18/21 Ryan Jenkins MD [address] [place] [address] Specialist Cardiology 02/18/21 Rosalva Stern PA-C [address] [place] [address] Specialist Cardiology 02/18/21 documented as of this encounter
--- OUTSIDE RECORDS SUMMARY | 2024-08-07 17:30 | XMS_ITS | Encounter Summary ---
Author Organization [facility] Address [address] [place] [address] Care Team Providers Care Plate Cleaner Name Role Phone Sudarshan Deluca Primary Care Provider Unav ailable Shin Núñez MD Primary Care Provider [phone] Azalia Esposito MD Primary Care Provider Unavailable Azalia Esposito MD Primary Care Provider Unavailable Shaw Cervantes MD Unavailable [phone] Ryan Jenkins MD Unavailable [phone] Rosalva Stern PA-C Unavailable Charbel Poe Primary Care Provider Unavailabl e Encounter Details Date Type Department Care Team Description 07/08/2009 Hospital Medical Records [address] [place] [address] Santana Louis MD Social History Tobacco Use Types Packs/Day [...] on filedocumented in this encounter Care Teams Plate Cleaner Relationship Specialty Start Date End Date Sudarshan Deluca PCP - General 05/06/10 12/30/14 Shin Núñez MD [address] [place] [address] PCP - General 07/08/09 05/05/10 Timmy-Azalia Recinos MD [address] [place] [address] PCP - General Internal Medicine 12/02/15 02/20/21 Azalia Esposito MD [address] [place] [address] PCP - General 12/31/14 12/01/15 Charbel Poe [address] [place] [address] PCP - General Internal Medicine 02/21/21 Shaw Cervantes MD [address] [place] [address] Specialist Cardiovascular Disease 02/18/21 Ryan Jenkins MD [address] [place] [address] Specialist Cardiology 02/18/21 Rosalva Stern PA-C [address] [place] [address] Specialist Cardiology 02/18/21 documented as of this encounter
--- OUTSIDE RECORDS SUMMARY | 2024-08-07 17:30 | XMS_ITS | Encounter Summary ---
Author Organization [facility] Address [address] [place] [address] Care Team Providers Care College Dean Name Role Phone Shaw Cervantes MD Unavailable [phone] Ryan Jenkins MD Unavailable [phone] Rosalva Stern PA-C Unavailable Charbel Poe Primary Care Provider Unavailabl e Encounter Details Date Type Department Care Team Description 12/18/2022 Loader Engineer Report Medical Records [address] [place] [address] Agnieszka Zapata MD [address] [place] [address] [address] [place] [address] Social History Tobacco Use Types Packs/Day Years [...] on filedocumented in this encounter Care Teams College Dean Relationship Specialty Start Date End Date Charbel Poe [address] [place] [address] PCP - General Internal Medicine 02/21/21 Shaw Cervantes MD 2 [facility] [address] [place] [address] Specialist Cardiovascular Disease 02/18/21 Ryan Jenkins MD [address] [place] [address] Specialist Cardiology 02/18/21 Rosalva Stern PA-C [address] [place] [address] Specialist Cardiology 02/18/21 documented as of this encounter
--- OUTSIDE RECORDS SUMMARY | 2024-08-07 17:30 | XMS_ITS | Encounter Summary ---
Author Organization [facility] Address [address] [place] [address] Care Team Providers Care Test Developer Name Role Phone Azalia Esposito MD Primary Care Provider Unavailable Shaw Cervantes MD Unavailable [phone] Ryan Jenkins MD Unavailable [phone] Rosalva Stern PA-C Unavailable Charbel Poe Primary Care Provider Unavailabl e Encounter Details Date Type Department Care Team Description 08/26/2018 Payroll Analyst Report Medical Records [address] [place] [address] Social History Tobacco Use Types Packs/Day Years [...] on filedocumented in this encounter Care Teams Test Developer Relationship Specialty Start Date End Date Azalia Esposito MD PCP - General Internal Medicine 12/02/1502/20/21 Charbel Poe [address] [place] [address] PCP - General Internal Medicine 02/21/21 Shaw Cervantes MD [address] [place] [address] Specialist Cardiovascular Disease 02/18/21 Ryan Jenkins MD [address] [place] [address] Specialist Cardiology 02/18/21 Rosalva Stern PA-C [address] [place] [address] Specialist Cardiology 02/18/21 documented as of this encounter
--- OUTSIDE RECORDS SUMMARY | 2024-08-07 17:30 | XMS_ITS | Encounter Summary ---
Author Organization [facility] Address [address] [place] [address] Care Team Providers Care Residential Property Consultant Name Role Phone Timmy-Azalia Recinos MD Primary Care Provider Unavailable Shaw Cervantes MD Unavailable [phone] Ryan Jenkins MD Unavailable [phone] Rosalva Stern PA-C Unavailable Charbel Poe Primary Care Provider Unavailabl e Encounter Details Date Type Department Care Team Description 01/14/2016 Finisher Fiberglass Boat Parts Report Medical Records [address] [place] [id number] [place] [address] Social History Tobacco Use Types Packs/Day Years [...] on filedocumented in this encounter Care Teams Residential Property Consultant Relationship Specialty Start Date End Date Azalia Esposito MD PCP - General Internal Medicine 12/02/1502/20/21 Charbel Poe [address] [address] PCP - General Internal Medicine 02/21/21 Shaw Cervantes MD [address] [place] [address] Specialist Cardiovascular Disease 02/18/21 Ryan Jenkins MD [address] [place] [address] Specialist Cardiology 02/18/21 Rosalva Stern PA-C [address] [place] [address] Specialist Cardiology 02/18/21 documented as of this encounter
--- OUTSIDE RECORDS SUMMARY | 2024-08-07 17:31 | XMS_ITS | Encounter Summary ---
Author Organization [facility] Address [address] [place] [address] Care Team Providers Care Dungeon Master Name Role Phone [place]-Azalia Recinos MD Primary Care Provider Unavailable Shaw Cervantes MD Unavailable [phone] Ryan Jenkins MD Unavailable [phone] Rosalva Stern PA-C Unavailable Charbel Poe Primary Care Provider Unavailabl e Encounter Details Date Type Department Care Team Description 11/07/2019 Hospital Medical Records [address] [place] [address] Blanca Raphael MD [address] [place] [address] Social History Tobacco Use Types Packs/Day Years [...] on filedocumented in this encounter Care Teams Dungeon Master Relationship Specialty Start Date End Date Azalia Esposito MD PCP - General Internal Medicine 12/02/1502/20/21 Charbel Poe [address] [address] PCP - General Internal Medicine 02/21/21 Shaw Cervantes MD [address] [place] [address] Specialist Cardiovascular Disease 02/18/21 Ryan Jenkins MD [address] [place] [address] Specialist Cardiology 02/18/21 Rosalva Stern PA-C [address] [place] [address] Specialist Cardiology 02/18/21 documented as of this encounter
--- OUTSIDE RECORDS SUMMARY | 2024-08-07 17:31 | XMS_ITS | Encounter Summary ---
Author Organization [facility] Address [address] [place] [address] Care Team Providers Care Cleaner And Trimmer Name Role Phone Azalia Esposito MD Primary Care Provider Unavailable Shaw Cervantes MD Unavailable [phone] Ryan Jenkins MD Unavailable [phone] Rosalva Stern PA-C Unavailable Charbel Poe Primary Care Provider Unavailabl e Reason for Visit * Reason Onset Date Comments Faxed Order 11/29/2019 [facility] Encounter Details Date Type Department Care Team Description 11/29/2019 Telephone Adult [address] [id number] Azalia Esposito MD Faxed Order ([facility]AM GALDAMEZ ) Social History Tobacco Use Types Packs/Day [...] encounter Miscellaneous Notes * Telephone Encounter - Dee Gerardo - 11/29/2019 2:58 PM EDT Faxed order received by FAM sharif in providers bin for signature, fax back to [phone] documented in this encounter Plan of Treatment Not on file documented as of this encounter Visit Diagnoses Not on filedocumented in this encounter Care Teams Cleaner And Trimmer Relationship Specialty Start Date End Date [place]-Azalia Recinos MD PCP - General Internal Medicine 12/02/1502/20/21 Charbel Poe [address] [place] [address] PCP - General Internal Medicine 02/21/21 Shaw Cervantes MD [address] [place] [address] Specialist Cardiovascular Disease 02/18/21 Ryan Jenkins MD [address] [place] [address] Specialist Cardiology 02/18/21 Rosalva Stern PA-C [address] [place] [address] Specialist Cardiology 02/18/21 documented as of this encounter
--- OUTSIDE RECORDS SUMMARY | 2024-08-07 17:31 | XMS_ITS | Encounter Summary ---
Author Organization [facility] Address [address] [place] [address] Care Team Providers Care Blurb Writer Name Role Phone Azalia Esposito MD Primary Care Provider Unavailable Shaw Cervantes MD Unavailable [phone] Ryan Jenkins MD Unavailable [phone] Rosalva Stern PA-C Unavailable Charbel Poe Primary Care Provider Unavailabl e Encounter Details Date Type Department Care Team Description 10/26/2016 Social Worker Masters Report Medical Records [address] [place] [address] Caron Gomez PA-C [address] [address] Social History Tobacco Use Types Packs/Day Years [...] on filedocumented in this encounter Care Teams Blurb Writer Relationship Specialty Start Date End Date Azalia Esposito MD PCP - General Internal Medicine 12/02/1502/20/21 Charbel Poe [address] [place] [address] PCP - General Internal Medicine 02/21/21 Shaw Cervantes MD [address] [place] [address] Specialist Cardiovascular Disease 02/18/21 Ryan Jenkins MD [address] [place] [address] Specialist Cardiology 02/18/21 Rosalva Stern PA-C [address] [place] [address] Specialist Cardiology 02/18/21 documented as of this encounter
--- OUTSIDE RECORDS SUMMARY | 2024-08-07 17:31 | XMS_ITS | Encounter Summary ---
Author Organization [facility] Address [address] [place] [address] Care Team Providers Care Optometric Tech Name Role Phone Azalia Esposito MD Primary Care Provider Unavailable Shaw Cervantes MD Unavailable [phone] Ryan Jenkins MD Unavailable [phone] Rosalva Stern PA-C Unavailable Charbel Poe Primary Care Provider Unavailabl e Reason for Visit * Reason Onset Date Comments Faxed Order 10/26/2019 Encounter Details Date Type Department Care Team Description 10/26/2019 Telephone Adult Medicine - [address] [address] Azalia Esposito MD Faxed Order Social History Tobacco Use Types Packs/Day Years [...] encounter Miscellaneous Notes * Telephone Encounter - Trang Schafer - 10/26/2019 1:18 PM EDT Please review sign date and return faxed order to Roxanna Lepe at fax # [phone] Order #[id number] documented in this encounter Plan of Treatment Not on file documented as of this encounter Visit Diagnoses Not on filedocumented in this encounter Care Teams Optometric Tech Relationship Specialty Start Date End Date [place]-Azalia Recinos MD PCP - General Internal Medicine 12/02/1502/20/21 Charbel Poe [address] [place] [address] PCP - General Internal Medicine 02/21/21 Shaw Cervantes MD [address] [place] [address] Specialist Cardiovascular Disease 02/18/21 Ryan Jenkins MD [address] [place] [address] Specialist Cardiology 02/18/21 Rosalva Stern PA-C [address] [place] [address] Specialist Cardiology 02/18/21 documented as of this encounter
--- OUTSIDE RECORDS SUMMARY | 2024-08-07 17:31 | XMS_ITS | Encounter Summary ---
Author Organization [employer] [facility] Address [address] [place] [address] Care Team Providers Care Liner Assembler Name Role Phone Timmy-Azalia Recinos MD Primary Care Provider Unavailable Shaw Cervantes MD Unavailable [phone] Ryan Jenkins MD Unavailable [phone] Rosalva Stern PA-C Unavailable Charbel Poe Primary Care Provider Unavailabl e Encounter Details Date Type Department Care Team Description 12/20/2019 Canned Food Reconditioning Inspector Report Medical Records [address] [place] [id number] [place] [address] Social History Tobacco Use Types Packs/Day Years [...] on filedocumented in this encounter Care Teams Liner Assembler Relationship Specialty Start Date End Date Azalia Esposito MD PCP - General Internal Medicine 12/02/1502/20/21 Charbel Poe [address] [address] PCP - General Internal Medicine 02/21/21 Shaw Cervantes MD [address] [place] [address] Specialist Cardiovascular Disease 02/18/21 Ryan Jenkins MD [address] [place] [address] Specialist Cardiology 02/18/21 Rosalva Stern PA-C [address] [place] [address] Specialist Cardiology 02/18/21 documented as of this encounter
--- OUTSIDE RECORDS SUMMARY | 2024-08-07 17:31 | XMS_ITS | Encounter Summary ---
Author Organization [facility] Address [address] [place] [address] Care Team Providers Care Web Services Developer Name Role Phone Azalia Esposito MD Primary Care Provider Unavailable Shaw Cervantes MD Unavailable [phone] Ryan Jenkins MD Unavailable [phone] Rosalva Stern PA-C Unavailable Charbel Poe Primary Care Provider Unavailabl e Reason for Visit * Reason Onset Date Comments VNA Call 10/27/2019 Encounter Details Date Type Department Care Team Description 10/27/2019 Telephone Adult [address] [address] Azalia Esposito MD VNA Call Social History [...] encounter Miscellaneous Notes * Telephone Encounter - Kimberly Streeter L.P.N. - 10/27/2019 9:27 AM EDT FYI only Pcp out till 10-30-19 * Telephone Encounter - Lorena Eid - 10/27/2019 9:17 AM EDT VNA CALL Which VNA office is calling? Yasmeen Full name of caller: Regina The caller is A nurse Is the caller at the patients home?: NO Reason for call: Regina calling stated that she is discharging the patient for home care. The patient's legs are healed but he is continuing to spit up yellow/green phlem. He also drinking alcohol,smoking cigarettes and a high sodium diet. The patient does not want to listen to the nurse. He will only listen to his welding machine operator. Does caller need an urgent call back? NO Was CONTACT Telephone # obtained above?:YES Fax #: documented in this encounter Plan of Treatment Not on file documented as of this encounter Visit Diagnoses Not on filedocumented in this encounter Care Teams Web Services Developer Relationship Specialty Start Date End Date Arvilla-Azalia Recinos MD PCP - General Internal Medicine 12/02/1502/20/21 Charbel Poe [address] [address] PCP - General Internal Medicine 02/21/21 Shaw Cervantes MD [address] [facility] [address] [place] [address] Specialist Cardiovascular Disease 02/18/21 Ryan Jenkins MD 300 [facility] [address] [place] [address] Specialist Cardiology 02/18/21 Rosalva Stern PA-C [address] [address] Specialist Cardiology 02/18/21 documented as of this encounter
--- OUTSIDE RECORDS SUMMARY | 2024-08-07 17:31 | XMS_ITS | Encounter Summary ---
Author Organization [facility] Address [address] [place] [address] Care Team Providers Care Transcriptionist Name Role Phone Timmy-Azalia Recinos MD Primary Care Provider Unavailable Shaw Cervantes MD Unavailable [phone] Ryan Jenkins MD Unavailable [phone] Rosalva Stern PA-C Unavailable Charbel Poe Primary Care Provider Unavailabl e Encounter Details Date Type Department Care Team Description 09/28/2019 Department Of Sociology Chair Report Medical Records [address] [place] [address] Shaw Cervantes MD [address] [place] [address] Social History Tobacco Use Types Packs/Day Years [...] on filedocumented in this encounter Care Teams Transcriptionist Relationship Specialty Start Date End Date Azalia Esposito MD PCP - General Internal Medicine 12/02/1502/20/21 Charbel Poe [address] [place] [address] PCP - General Internal Medicine 02/21/21 Shaw Cervantes MD [address] [place] [address] Specialist Cardiovascular Disease 02/18/21 Ryan Jenkins MD [address] [place] [address] Specialist Cardiology 02/18/21 Rosalva Stern PA-C [address] [place] [address] Specialist Cardiology 02/18/21 documented as of this encounter
--- OUTSIDE RECORDS SUMMARY | 2024-08-07 17:31 | XMS_ITS | Encounter Summary ---
Author Organization [facility] Address [address] [place] [address] Care Team Providers Care Husbandry Technician Name Role Phone Azalia Esposito MD Primary Care Provider Unavailable Shaw Cervantes MD Unavailable [phone] Ryan Jenkins MD Unavailable [phone] Rosalva Stern PA-C Unavailable Charbel Poe Primary Care Provider Unavailabl e Reason for Visit * Reason Onset Date Comments Faxed Order 10/10/2019 Encounter Details Date Type Department Care Team Description 10/10/2019 Telephone Adult [address] [id number] Azalia Esposito MD Faxed Order Social History [...] encounter Miscellaneous Notes * Telephone Encounter - Joanna Moore - 10/18/2019 3:56 PM EDT Faxed order received from [facility]. Please review, sign, date, and fax back to [phone]. Order #[id number] * Telephone Encounter - Joanna Moore - 10/13/2019 11:39 AM EDT Faxed order received from [facility]. Please review, sign, date, and fax back to [phone]. Order #[id number] * Telephone Encounter - Natalia Almeida - 10/10/2019 9:53 AM EDT Orders from [facility] to be signed and faxed back to [phone] . documented in this encounter Plan of Treatment Not on file documented as of this encounter Visit Diagnoses Not on filedocumented in this encounter Care Teams Husbandry Technician Relationship Specialty Start Date End Date [place]-Azalia Recinos MD PCP - General Internal Medicine 12/02/1502/20/21 Charbel Poe 300 [facility] [address] [place] [address] PCP - General Internal Medicine 02/21/21 Shaw Cervantes MD [address] [facility] [address] [place] [address] Specialist Cardiovascular Disease 02/18/21 Ryan Jenkins MD 300 [facility] [address] [place] [address] Specialist Cardiology 02/18/21 Rosalva Stern PA-C 300 [facility] [address] [place] [address] Specialist Cardiology 02/18/21 documented as of this encounter
--- OUTSIDE RECORDS SUMMARY | 2024-08-07 17:31 | XMS_ITS | Encounter Summary ---
Author Organization [facility] Address [address] [place] [address] Care Team Providers Care Hadoop Developer Name Role Phone Azalia Esposito MD Primary Care Provider Unavailable Shaw Cervantes MD Unavailable [phone] Ryan Jenkins MD Unavailable [phone] Rosalva Stern PA-C Unavailable Charbel Poe Primary Care Provider Unavailabl e Encounter Details Date Type Department Care Team Description 02/09/2017 Editor Sound Report Medical Records [address] [place] [address] Social History Tobacco Use Types Packs/Day Years [...] on filedocumented in this encounter Care Teams Hadoop Developer Relationship Specialty Start Date End Date Azalia Esposito MD PCP - General Internal Medicine 12/02/1502/20/21 Charbel Poe [address] [place] [address] PCP - General Internal Medicine 02/21/21 Shaw Cervantes MD [address] [place] [address] Specialist Cardiovascular Disease 02/18/21 Ryan Jenkins MD [address] [place] [address] Specialist Cardiology 02/18/21 Rosalva Stern PA-C [address] [place] [address] Specialist Cardiology 02/18/21 documented as of this encounter
--- OUTSIDE RECORDS SUMMARY | 2024-08-07 17:31 | XMS_ITS | Encounter Summary ---
Author Organization [facility] Address [address] [place] [address] Care Team Providers Care Analytics Leader Name Role Phone Azalia Esposito MD Primary Care Provider Unavailable Shaw Cervantes MD Unavailable [phone] Ryan Jenkins MD Unavailable [phone] Rosalva Stern PA-C Unavailable Charbel Poe Primary Care Provider Unavailabl e Reason for Visit * Reason Onset Date Comments Faxed Order 12/05/2019 [facility] Encounter Details Date Type Department Care Team Description 12/05/2019 Telephone Adult Medicine - [address] [address] Azalia Esposito MD Faxed Order ([facility]) Social History Tobacco Use Types Packs/Day Years [...] encounter Miscellaneous Notes * Telephone Encounter - Mirna Barros C.M.A. - 01/01/2020 9:[address] Recinos works remotely and covering provider per list is Dr Timothy Pringle in [facility]. fyi * Telephone Encounter - Telma Jenkins - 12/29/2019 2:30 PM EDT What pool? * Telephone Encounter - Mirna Barros C.M.A. - 12/29/2019 2:28 PM EDT Please send to correct pool * Telephone Encounter - Telma Jenkins - 12/29/2019 11:32 AM EDT Dana from [facility] checking on status, asking if this is what she is looking for? face to face attestation. DOS 08-24-19 faxed to [phone]. If any questions she can be reached at [phone] * Telephone Encounter - Mona Vasquez - 12/05/2019 2:36 PM EDT Faxed order received by [facility] placed in providers bin for signature, fax back to [phone] documented in this encounter Plan of Treatment Not on file documented as of this encounter Visit Diagnoses Not on filedocumented in this encounter Care Teams Analytics Leader Relationship Specialty Start Date End Date [place]-Azalia Rceinos MD PCP - General Internal Medicine 12/02/1502/20/21 Charbel Poe [address] [place] [address] PCP - General Internal Medicine 02/21/21 Shaw Cervantes MD [address] [place], [place] [address] Specialist Cardiovascular Disease 02/18/21 Ryan Jenkins MD [address] [place] [address] Specialist Cardiology 02/18/21 Rosalva Stern PA-C [address] [place] [address] Specialist Cardiology 02/18/21 documented as of this encounter
--- OUTSIDE RECORDS SUMMARY | 2024-08-07 17:31 | XMS_ITS | Encounter Summary ---
Author Organization [facility] Address [address] [place] [address] Care Team Providers Care Bobtailer Name Role Phone Timmy-Azalia Recinos MD Primary Care Provider Unavailable Shaw Cervantes MD Unavailable [phone] Ryan Jenkins MD Unavailable [phone] Rosalva Stern PA-C Unavailable Charbel Poe Primary Care Provider Unavailabl e Encounter Details Date Type Department Care Team Description 10/27/2019 Tonsorial Artist Report Medical Records [address] [place] [address] Shaw Cervatnes MD [address] [place] [address] Social History Tobacco Use Types Packs/Day Years [...] on filedocumented in this encounter Care Teams Bobtailer Relationship Specialty Start Date End Date Azalia Esposito MD PCP - General Internal Medicine 12/02/1502/20/21 Charbel Poe [address] [place] [address] PCP - General Internal Medicine 02/21/21 Shaw Cervantes MD [address] [place] [address] Specialist Cardiovascular Disease 02/18/21 Ryan Jenkins MD [address] [place] [address] Specialist Cardiology 02/18/21 Rosalva Stern PA-C [address] [place] [address] Specialist Cardiology 02/18/21 documented as of this encounter
== END 2024-08-07 15:13 | disposition home or self-care (01) ==
LOC: HO.CT 15:12
PROVIDERS: PCP Internal Medicine; Visit Provider Physician Assistant Medical
DX: Z12.2 Encounter for screening for malignant neoplasm of respiratory organs (principal); Z87.891 Personal history of nicotine dependence
CPT/HCPCS: 71271

== ENCOUNTER → 2024-08-07 15:14 | Outpatient (BNV) | payer MEDICARE, SELFPAY | PROVIDERS: PCP Internal Medicine; Visit Provider Nuclear Medicine | DX: Z87.891 Personal history of nicotine dependence (principal) | CPT/HCPCS: 71271 ==

== ENCOUNTER 2024-08-14 13:13 | Inpatient (IN) | payer MEDICARE, SELFPAY ==
[2024-08-14] VITALS (14 sets, daily range): BP systolic 105–133; BP diastolic 28–59; PULSE 61–117; RESP 18–29; TEMP 36.6–37; O2SAT 88–100; BMI 30.4
--- NOTE | ~2024-08-14 | XR_ITS ---
EXAMINATION: XR CHEST CLINICAL INFORMATION: dyspnea COMPARISON: Chest CT 08/07/2024 TECHNIQUE: Frontal view of the chest was obtained. FINDINGS: The lungs are expanded with patchy opacities scattered in right mid and lower lobe and left lower lobe. The left upper lung is relatively clear. The heart size is normal. Pulmonary vascularity is normal. There are pacer electrodes in right atrium and right ventricle. No pleural effusion seen. No gross bony abnormality seen. XR/XR chest 1V IMPRESSION: Patchy opacities in the right middle, lower lobe and left lower lobe. Question developing infiltrates acute versus chronic. Electronically signed by: Emanuel Villegas MD 08/14/2024 02:56 PM EST
--- NOTE | 2024-08-14 13:30 | ED.SOB ---
HPI - SOB/Dyspnea General Chief Complaint: Dyspnea Stated Complaint: SOB X2-3D,[id number] PER EMS Time Seen by Provider: 08/14/24 13:28 Source: patient Mode of arrival: ambulatory Limitations: no limitations History of Present Illness ED Provider: Dr. Cummings HPI Narrative: 74 year old male PMH: advanced chronic obstructive pulmonary disease, with respiratory failure, requiring O2 2 L/minute continuously. He has been active smoker, smoking at least half pack of cigarettes a day. Ischemic cardiomyopathy has had cardiac catheterizations in the past on anticoagulation has a pacemaker paroxysmal atrial fibrillation CHF hypertension. who presents emergency room with 3 days of worsening shortness of breath in 2 days of diarrhea. he describes the diarrhea as 1 loose stool every day for the past 2 days he does mentioned that it was very dark black. Related Data Home Medications ?Medication ?Instructions ?Recorded ?Confirmed multivitamin (Daily Multi-Vitamin 1 tab PO DAILY 06/05/20 07/25/24 tablet) Oxygen Home Use 03/10/21 07/25/24 azelastine 137 mcg (0.1 %) nasal intranasal PRN 10/18/23 07/25/24 spray Previous Rx's ?Medication ?Instructions ?Recorded nebulizers #1 ea 02/20/21 albuterol sulfate 2.5 mg/3 mL 2.5 mg (3 mL) inhalation Q4-6H PRN 05/29/22 (0.083 %) solution for nebulization shortness of breath or wheezing #280 mL albuterol sulfate 90 mcg/actuation 2 puff inhalation Q4-6H PRN 04/14/23 aerosol inhaler (ProAir HFA) shortness of breath or wheezing 90 days #3 ea ipratropium 0.5 mg-albuterol 3 mg 3 ml inhalation QID #1,080 mL 08/27/23 (2.5 mg base)/3 mL nebulization soln betamethasone dipropionate 0.05 % 1 appl topical BID #60 mL 10/19/23 lotion betamethasone dipropionate 0.05 % 1 appl topical BID PRN skin 10/19/23 topical cream irritation #45 grams spironolactone 25 mg tablet 12.5 mg (1/2 x 25 mg) PO DAILY #45 11/05/23 tabs lisinopril 5 mg tablet 2.5 mg (1/2 x 5 mg) PO DAILY #45 11/23/23 tabs nicotine See Rx Instructions transdermal 02/24/24 21mg/24hr-14mg/24hr-7mg/24hr daily .COMPLEX 2 months #56 patches transderm patches,sequentl nicotine 21 mg/24 hr daily 1 patch transdermal DAILY NICOTINE 02/29/24 transdermal patch ADDICTION 28 days #28 ea metoprolol succinate 50 mg 100 mg (2 x 50 mg) PO DAILY #180 04/24/24 tablet,extended release 24 hr tabs budesonide-formoterol HFA 80 2 puff inhalation BID COPD 90 05/23/24 mcg-4.5 mcg/actuation aerosol days #10.2 grams inhaler varenicline tartrate 0.5 mg (11)-1 See Rx Instructions PO PER PKG DIR 06/23/24 mg (42) tablets in a dose pack #53 ea (Chantix Starting Month Box) warfarin 5 mg tablet 5 mg PO DAILY #90 tabs 07/30/24 Allergies Allergy/AdvReac Type Severity Reaction Status Date / Time head and shoulders shampoo AdvReac Severe burn Uncoded 08/14/24 13:41 Review of Systems Review of Systems: Review of systems: General: Patient denies any fever chills recent illness or falls Musculoskeletal: Denies back pain or body aches or other injuries HEENT: denies headache, runny nose, ear pain Respiratory: shortness of breath, cough Cardiovascular: no chest pain or palpitations : denies dysuria, frequency Abdomen: Diarrheano nausea vomiting denies abdominal pain Extremities: no swelling, no pain Skin: no diaphoresis Yes all other systems are reviewed and are negative [facility] Past Medical History Medical History (Updated 08/14/24 @ 14:31 by Glen Cummings DO) Hand dermatitis Respiratory failure with hypoxia Chronic bronchitis Personal history of nicotine dependence Hypertension 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 Mother No problems noted. Brother Esophageal cancer Social History Social History Household Members: Children Housing: Condominium Do you presently have visiting nurse or other home services: Yes ([facility]) Alcohol intake: current Alcohol intake frequency: other Comment: no telesitter available at this time Patient Tobacco Use Status: Former Tobacco user Tobacco use type: Cigarette Years Smoked: (onset 18yo, 1-1.5ppd x 53yrs, 65pyh - now 1cig/day) e-Cigarette/Vaping Use: Never Used Second Hand Smoke Exposure: Yes Advance Directives: Yes Advance Directives on File: Yes Advance Directives Date on File: 07/01/20 service: No Current occupational status: retired Current occupation: RETIRED Current occupational exposures/hazards: No Cognitive needs: Yes (walker) Hearing needs: No Vision needs: No Physical Exam Vital Signs: Vital Signs: Last Vital Signs Temp 98.0 F 08/14/24 13:35 Pulse 113 H 08/14/24 14:02 Resp 22 H 08/14/24 14:02 BP 106/57 L 08/14/24 13:35 Pulse Ox 93 08/14/24 13:35 O2 Del Method Nasal Cannula 08/14/24 13:35 Oxygen Flow Rate 2 08/14/24 13:35 BMI result Body Mass Index 30.4 General: Well-appearing well-nourished in no signs of distress HEENT: Normocephalic atraumatic Neck: No signs of JVD, no masses no tenderness or lymphadenopathy Cardiovascular: Regular rate and rhythm Respiratory: Wheezing bilaterally Abdomen: Soft nontender no masses Extremities: Normal pedal pulses no signs of edema Skin: Dry warm no rashes Back: No tenderness full ROM Course Course Course Narrative: patient found to be anemic I did consent the patient for blood products patient did get a breathing treatment is feeling better he is slightly tachycardic after the breathing treatment as well as lots of PVCs. Reevaluation(s) Reevaluation #1: I just got a call from the lab for abnormal PT 102.5 INR 8.8, PTT is 79.3. They had called prevoiusly about his hemoglogin. I will reverse his INR as he has active rectal bleeding. He is on coumadin. He states has taken no extra doses. I reviewed multiple recommendations as he does have anemia but only one episode of bleeding he is getting a transfusion I don't feeel he need 4 factor PCC but do think vitamin is warranted. I will give 10 mg IV. Reevaluation #2: Patient accepted to the hospitalist service. Medications Administered Discontinued Medications Generic Name Dose Route Start Last Admin Trade Name Suha PRN Reason Stop Dose Admin Albuterol Sulfate 5 mg/ 0 mg 08/14/24 13:57 08/14/24 14:01 Albuterol/Ipratropium 3 ml INHALE 08/14/24 13:58 1 each ONCE ONE Administration Sodium Chloride 1,000 mls @ 999 mls/hr 08/14/24 13:45 08/14/24 14:01 Ns IV 08/14/24 14:45 999 mls/hr .Q1H1M KENNEDY Administration Methylprednisolone Sodium Succinate 125 mg 08/14/24 13:38 08/14/24 14:01 Methylprednisolone Sod Succ 125 Mg/2 Ml Vial IVPUSH 08/14/24 13:39 125 mg ONCE ONE Administration Medical Decision Making Medical Decision Making [facility] Narrative: with concern of blood in stool yesterday which has since resolved as well as COPD exacerbation I will start the patient on Solu-Medrol e.d. bronchodilator protocol with breathing treatments fluids x-ray labs including VBG lactic acid PT INR PTT type and screen. Differential Diagnosis Differential Diagnoses: The differential diagnosis associated with the presentation includes COPD exacerbation anemia weakness dehydration rectal bleeding Admission/Observation Consideration of admission/observation: Escalation of care including admission/observation considered Consult Healthcare Provider Management of the patient was discussed with: Hospitalist Lab Data [facility] Lab Attestation statement: I reviewed the patient's lab results. 08/14/24 13:54 08/14/24 13:54 Labs: Lab Results 08/14/24 08/14/24 08/14/24 Range/Units 13:40 13:52 13:54 WBC 17.6 H (4.8-10.8) X10*3/uL RBC 2.23 L D (4.60-5.80) X10*6/uL Hgb 6.1 L* D (14.0-18.0) g/dl Hct 20.5 L* D (42.0-52.0) % MCV 91.9 (80.0-98.0) fL MCH 27.4 (27.0-33.0) pg MCHC 29.8 L (31.0-36.0) g/dl RDW 13.7 (11.0-16.0) % Plt Count 320 D (160-400) X10*3/uL MPV 10.1 (9.4-12.4) fL Immature Gran % (Auto) 1.9 H (0.0-0.4) % Neut % (Auto) 77.5 H (45-73) % Lymph % (Auto) 12.4 L (20-40) % Clay % (Auto) 6.4 (2-11) % Eos % (Auto) 1.1 (0-4) % Baso % (Auto) 0.7 (0-2) % Lymph # (Auto) 2.2 (1.2-4.9) X10*3/uL Clay # (Auto) 1.1 (0.1-1.2) X10*3/uL Eos # (Auto) 0.2 (0.0-0.4) X10*3/uL Baso # (Auto) 0.1 (0.0-0.2) X10*3/uL Abs Immat Gran (auto) 0.34 H (0.00-0.03) X10*3/uL Absolute Neuts (auto) 13.7 H (2.0-8.3) x10*3/uL Absolute Nucleated RBC 0.000 (0.0-0.012) X10*3/uL Nucleated RBC % (auto) 0.0 (0.0-0.2) /100WBC PT 102.5 H (10.9-12.4) SEC INR 8.8 H* D (0.9-1.1) APTT 79.3 H* (26.0-36.8) SEC VBG pH (7.32-7.43) VBG pCO2 mmHg VBG pO2 mmHg VBG HCO3 (22-26) mmol/L VBG O2 Saturation VBG Base Excess mmol/L Sodium 141 (135-145) mmol/L Potassium 5.3 H D (3.3-5.1) mmol/L Chloride 98 (96-108) mmol/L Carbon Dioxide 36 H (22-29) mmol/L Anion Gap 12 (12-20) BUN 59 H (9-16) mg/dL Creatinine 0.79 (0.5-1.4) mg/dL Estim Creat Clear Calc 92.3 Estimated GFR > 60 POC Glucose 120 H (60-115) mg/dL Random Glucose 131 H (60-115) mg/dL Calcium 8.6 (8.4-10.2) mg/dL Total Bilirubin 0.1 (0.0-1.0) mg/dL Direct Bilirubin < 0.2 (0.0-0.5) mg/dL AST 21 (5-37) U/L ALT 15 (0-40) U/L Alkaline Phosphatase 60 (39-117) U/L Troponin I High Sens 7.7 (<3.5-35.0) ng/L B-Natriuretic Peptide 36 (<100) pg/mL Total Protein 6.5 (6.5-8.0) g/dL Albumin 3.1 L (3.5-5.0) g/dL Lipase 16 (8-78) U/L Influenza Type A (PCR) NEGATIVE (Negative) Influenza Type B (PCR) NEGATIVE (Negative) RSV RNA Qual (PCR) NEGATIVE (Negative) SARS-CoV-2 RNA (RT-PCR) NEGATIVE (Negative) Blood Type Antibody Screen Crossmatch 08/14/24 08/14/24 Range/Units 13:59 14:13 WBC (4.8-10.8) X10*3/uL RBC (4.60-5.80) X10*6/uL Hgb (14.0-18.0) g/dl Hct (42.0-52.0) % MCV (80.0-98.0) fL MCH (27.0-33.0) pg MCHC (31.0-36.0) g/dl RDW (11.0-16.0) % Plt Count (160-400) X10*3/uL MPV (9.4-12.4) fL Immature Gran % (Auto) (0.0-0.4) % Neut % (Auto) (45-73) % Lymph % (Auto) (20-40) % Clay % (Auto) (2-11) % Eos % (Auto) (0-4) % Baso % (Auto) (0-2) % Lymph # (Auto) (1.2-4.9) X10*3/uL Clay # (Auto) (0.1-1.2) X10*3/uL Eos # (Auto) (0.0-0.4) X10*3/uL Baso # (Auto) (0.0-0.2) X10*3/uL Abs Immat Gran (auto) (0.00-0.03) X10*3/uL Absolute Neuts (auto) (2.0-8.3) x10*3/uL Absolute Nucleated RBC (0.0-0.012) X10*3/uL Nucleated RBC % (auto) (0.0-0.2) /100WBC PT (10.9-12.4) SEC INR (0.9-1.1) APTT (26.0-36.8) SEC VBG pH 7.52 H (7.32-7.43) VBG pCO2 53 mmHg VBG pO2 29 mmHg VBG HCO3 44 H (22-26) mmol/L VBG O2 Saturation TNP VBG Base Excess 19.6 mmol/L Sodium (135-145) mmol/L Potassium (3.3-5.1) mmol/L Chloride (96-108) mmol/L Carbon Dioxide (22-29) mmol/L Anion Gap (12-20) BUN (9-16) mg/dL Creatinine (0.5-1.4) mg/dL Estim Creat Clear Calc Estimated GFR POC Glucose (60-115) mg/dL Random Glucose (60-115) mg/dL Calcium (8.4-10.2) mg/dL Total Bilirubin (0.0-1.0) mg/dL Direct Bilirubin (0.0-0.5) mg/dL AST (5-37) U/L ALT (0-40) U/L Alkaline Phosphatase (39-117) U/L Troponin I High Sens (<3.5-35.0) ng/L B-Natriuretic Peptide (<100) pg/mL Total Protein (6.5-8.0) g/dL Albumin (3.5-5.0) g/dL Lipase (8-78) U/L Influenza Type A (PCR) (Negative) Influenza Type B (PCR) (Negative) RSV RNA Qual (PCR) (Negative) SARS-CoV-2 RNA (RT-PCR) (Negative) Blood Type A Positive Antibody Screen NEGATIVE Crossmatch See Detail Independent Interpretation I performed an independent interpretation of an: EKG Interpretation: Rate 156 ventricular paced rhythm with PVCs Radiology Impression Discussion of test interpretation with radiology: I have reviewed the radiologist's reading. Independent Historian Clinical information obtained from an independent historian. History obtained from or confirmed by: Other External Record Review External record reviewed: Inpatient record and Office record Critical Care Time Critical Care Time Critical Care Time: Yes Total Critical Care Time: 60 Attestation: Patient with COPD exacerbation found to have Discharge Plan Discharge Clinical Impression: Elevated INR, Anemia, COPD exacerbation Patient Disposition: Admitted As Inpatient Print Language: Bahraini
--- NOTE | 2024-08-14 13:39 | ECG_ITS ---
Test Reason : SOB Blood Pressure : */* mmHG Vent. Rate : 113 BPM Atrial Rate : 115 BPM P-R Int : * ms QRS Dur : 148 ms QT Int : 266 ms P-R-T Axes : * -88 89 degrees QTcB Int : 365 ms Ventricular-paced rhythm , ? PMT Abnormal ECG When compared with ECG of 01-Jul-2020 08:57, Electronic ventricular pacemaker has replaced Idioventricular rhythm Vent. rate has increased Referred By: Glen Cummings Electronically Signed By: HUGH NUNEZ MD
[2024-08-14 13:58] LABS: MANUAL DIFF FLAG NO
[2024-08-14 14:01] LABS: Basophils Absolute Auto 0.1 X10*3/uL (0.0-0.2); Basophils Percent Auto 0.7 % (0-2); Eosinophils Absolute Auto 0.2 X10*3/uL (0.0-0.4); Eosinophils Percent Auto 1.1 % (0-4); Imm Gran Abs Auto 0.34 X10*3/uL (0.00-0.03); Imm Gran Pct Auto 1.9 % (0.0-0.4); Lymphocytes Absolute Auto 2.2 X10*3/uL (1.2-4.9); Lymphocytes Percent Auto 12.4 % (20-40); Mean Corpuscular HGB Conc 29.8 g/dl (31.0-36.0); Mean Corpuscular Hemoglobin 27.4 pg (27.0-33.0); Mean Corpuscular Volume 91.9 fL (80.0-98.0); Mean Platelet Volume 10.1 fL (9.4-12.4); Monocytes Absolute Auto 1.1 X10*3/uL (0.1-1.2); Monocytes Percent Auto 6.4 % (2-11); Neutrophils Absolute Auto 13.7 x10*3/uL (2.0-8.3); Neutrophils Percent Auto 77.5 % (45-73); Platelet Count 320 X10*3/uL (160-400); Red Blood Count 2.23 X10*6/uL (4.60-5.80); Red Cell Distribution Width 13.7 % (11.0-16.0); White Blood Count 17.6 X10*3/uL (4.8-10.8)
[2024-08-14] MEDS: methylPREDNISolone Sod Succ 125 MG/2 ML VIAL IVPUSH (14:01)
[2024-08-14] MEDS: Albuterol Sulfate 5 MG, Albuterol/Iprat 2.5/0.5MG 3 ML 3 ML INHALE (14:01)
[2024-08-14] MEDS: 0.9 % Sodium Chloride 1,000 ML 999 ML IV (14:01)
[2024-08-14 14:03] LABS: Hematocrit 20.5 % (42.0-52.0); Hemoglobin 6.1 g/dl (14.0-18.0)
[2024-08-14 14:06] LABS: Venous Blood Gas Refer to POC result
[2024-08-14 14:06] LABS: VBG Base Excess 19.6 mmol/L; VBG HCO3 44 mmol/L (22-26); VBG pCO2 53 mmHg; VBG pH 7.52 (7.32-7.43); VBG pO2 29 mmHg
[2024-08-14 14:07] LABS: Glucose, Whole Blood 120 mg/dL (60-115)
[2024-08-14 14:16] LABS: Prothrombin Time 102.5 SEC (10.9-12.4)
[2024-08-14 14:25] LABS: Alanine Aminotransferase 15 U/L (0-40); Albumin Level 3.1 g/dL (3.5-5.0); Alkaline Phosphatase 60 U/L (39-117); Anion Gap 12 (12-20); Aspartate Amino Transferase 21 U/L (5-37); Bilirubin Direct < 0.2 mg/dL (0.0-0.5); Bilirubin Total 0.1 mg/dL (0.0-1.0); Blood Urea Nitrogen 59 mg/dL (9-16); Calcium 8.6 mg/dL (8.4-10.2); Carbon Dioxide 36 mmol/L (22-29); Chloride 98 mmol/L (96-108); Creatinine Clr Calc Pharmacy 92.3; Estimated Glomerular Filt Rate > 60; Glucose Random 131 mg/dL (60-115); Lipase 16 U/L (8-78); Potassium 5.3 mmol/L (3.3-5.1); Sodium 141 mmol/L (135-145); Total Protein 6.5 g/dL (6.5-8.0)
[2024-08-14 14:26] LABS: INTERNATIONAL NORM RATIO 8.8 (0.9-1.1)
[2024-08-14 14:26] LABS: Partial Thromboplastin Time 79.3 SEC (26.0-36.8)
[2024-08-14 14:27] LABS: B Type Natriuretic Peptide 36 pg/mL (<100)
[2024-08-14 14:32] LABS: Troponin-I High Sensitivity 7.7 ng/L (<3.5-35.0)
[2024-08-14 14:43] LABS: Influenza A PCR NEGATIVE (Negative); Influenza B PCR NEGATIVE (Negative); Resp Syncy Virus RNA Qual PCR NEGATIVE (Negative); SARS COV2 PCR INHOUSE NEGATIVE (Negative)
--- NOTE | 2024-08-14 14:57 | PM.IMHP ---
History of Present Illness Date of Service: 08/14/24 Chief Complaint: Shortness of breath 74-year-old male with a history of COPD on chronic oxygen at home presented to the ER with complaints of worsening shortness of breath and blood per rectum. Patient reports over the last 2 days he has had about 3 episodes of black stool usually in the middle of the night. He reported overnight he had a difficult time falling asleep and staying asleep and was an unable to lie flat. He denied any recent illness, travel, sick contacts, chest pain, nausea, vomiting. He does live alone and is pretty independent. In the ER, H&H was noted to be 6.1/20.5, white blood cell count 17.6, INR 8.8, potassium 5.3, negative flu, RSV and COVID. Chest x-ray showing patchy opacities in the right middle/lower lobe and left lower lobe, tachycardia and tachypnea noted. Patient received a dose of Solu-Medrol, albuterol, vitamin K, Lokelma 1 L of IV fluid in the ER. He will be admitted for further management and treatment of acute respiratory failure secondary to COPD cap and GI bleed. Review of Systems Review of Systems: Denies any recent fever chills or decrease in appetite respiratory see HPI cardiovascular denied chest pain gastrointestinal denies any dysphagia abdominal pain nausea vomiting or diarrhea, reports black stools genitourinary denies any dysuria frequency or hematuria musculoskeletal denies any joint pain or swelling neuropsych denies any weakness or seizures all other systems reviewed are negative [facility] Medical History (Updated 08/14/24 @ 16:11 by Francisca Almeida NP) Pacemaker (~06/2020) Nonischemic cardiomyopathy Hand dermatitis Respiratory failure with hypoxia Chronic bronchitis Personal history of nicotine dependence Hypertension 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 Mother No problems noted. Brother Esophageal cancer Surgical History (Updated 08/14/24 @ 16:11 by Francisca Almeida NP) S/P cardiac catheterization History of cardiac radiofrequency ablation History of colonoscopy History of permanent cardiac pacemaker placement (~06/2020) Social History Household Members: Children Housing: Condominium Do you presently have visiting nurse or other home services: Yes ([facility]) Alcohol intake: current Alcohol intake frequency: other Comment: no telesitter available at this time Patient Tobacco Use Status: Former Tobacco user Tobacco use type: Cigarette Years Smoked: (onset 18yo, 1-1.5ppd x 53yrs, 65pyh - now 1cig/day) e-Cigarette/Vaping Use: Never Used Second Hand Smoke Exposure: Yes Advance Directives: Yes Advance Directives on File: Yes Advance Directives Date on File: 07/01/20 Nutrition Risks: Poor intake 0-25% >4 days service: No Current occupational status: retired Current occupation: RETIRED Current occupational exposures/hazards: No Cognitive needs: Yes (walker) Hearing needs: No Vision needs: No Meds Allergies Allergy/AdvReac Type Severity Reaction Status Date / Time head and shoulders shampoo AdvReac Severe burn Uncoded 08/14/24 13:41 Active Medications: Current Medications Phytonadione 10 mg/ Sodium (Chloride) 51 mls @ 51 mls/hr IV ONCE ONE Stop: 08/14/24 15:26 Home Medications ?Medication ?Instructions ?Recorded ?Confirmed ?Last Taken ?Type multivitamin (Daily Multi-Vitamin 1 tab PO DAILY 06/05/20 07/25/24 Unknown History tablet) Oxygen Home Use 03/10/21 07/25/24 Unknown History azelastine 137 mcg (0.1 %) nasal intranasal PRN 10/18/23 07/25/24 Unknown History spray Physical Exam Vital Signs and Narrative: Vital Signs: Last Vital Signs Temp 98.0 F 08/14/24 13:35 Pulse 113 H 08/14/24 14:02 Resp 22 H 08/14/24 14:02 BP 106/57 L 08/14/24 13:35 Pulse Ox 93 08/14/24 13:35 O2 Del Method Nasal Cannula 08/14/24 13:35 Oxygen Flow Rate 2 08/14/24 13:35 BMI result Body Mass Index 30.4 Appearing in no acute distress head is normocephalic atraumatic eyes pupils are PERRLA sclera is anicteric mouth throat mucous membranes are intact and moist neck is supple no lymphadenopathy, no JVD noted lung sounds expiratory wheezing/rhonchi heart regular rate rhythm, paced positive bowel sounds, abdomen is soft, nontender, obese abdomen neuro patient is alert x3, no focal deficits Results Labs 08/14/24 13:54 08/14/24 13:54 Labs: Laboratory Results - last 24 hr 08/14/24 08/14/24 08/14/24 13:40 13:52 13:54 MCV 91.9 MCH 27.4 MCHC 29.8 L RDW 13.7 Plt Count 320 D MPV 10.1 Immature Gran % (Auto) 1.9 H Neut % (Auto) 77.5 H Lymph % (Auto) 12.4 L Henderson % (Auto) 6.4 Eos % (Auto) 1.1 Baso % (Auto) 0.7 Lymph # (Auto) 2.2 Henderson # (Auto) 1.1 Eos # (Auto) 0.2 Baso # (Auto) 0.1 Abs Immat Gran (auto) 0.34 H Absolute Neuts (auto) 13.7 H Absolute Nucleated RBC 0.000 Nucleated RBC % (auto) 0.0 PT 102.5 H INR 8.8 H* D APTT 79.3 H* VBG pH VBG pCO2 VBG pO2 VBG HCO3 VBG O2 Saturation VBG Base Excess Anion Gap 12 Estim Creat Clear Calc 92.3 Estimated GFR > 60 POC Glucose 120 H Random Glucose 131 H Calcium 8.6 Total Bilirubin 0.1 Direct Bilirubin < 0.2 AST 21 ALT 15 Alkaline Phosphatase 60 B-Natriuretic Peptide 36 Total Protein 6.5 Albumin 3.1 L Lipase 16 Influenza Type A (PCR) NEGATIVE Influenza Type B (PCR) NEGATIVE RSV RNA Qual (PCR) NEGATIVE SARS-CoV-2 RNA (RT-PCR) NEGATIVE Blood Type Antibody Screen Crossmatch 08/14/24 08/14/24 13:59 14:13 MCV MCH MCHC RDW Plt Count MPV Immature Gran % (Auto) Neut % (Auto) Lymph % (Auto) Henderson % (Auto) Eos % (Auto) Baso % (Auto) Lymph # (Auto) Henderson # (Auto) Eos # (Auto) Baso # (Auto) Abs Immat Gran (auto) Absolute Neuts (auto) Absolute Nucleated RBC Nucleated RBC % (auto) PT INR APTT VBG pH 7.52 H VBG pCO2 53 VBG pO2 29 VBG HCO3 44 H VBG O2 Saturation TNP VBG Base Excess 19.6 Anion Gap Estim Creat Clear Calc Estimated GFR POC Glucose Random Glucose Calcium Total Bilirubin Direct Bilirubin AST ALT Alkaline Phosphatase B-Natriuretic Peptide Total Protein Albumin Lipase Influenza Type A (PCR) Influenza Type B (PCR) RSV RNA Qual (PCR) SARS-CoV-2 RNA (RT-PCR) Blood Type A Positive Antibody Screen NEGATIVE Crossmatch See Detail Assessment and Plan (1) Elevated INR: Status: Acute Plan 74 year old man admitted with severe anemia and COPD exacerbation and pneumonia Sepsis Tachycardia, tachypnea, leukocytosis, normal lactic acid treat with abx follow blood cx Acute on chronic hypoxic respiratory failure secondary to COPD exacerbation and CAP consolidation noted on CXR Start Rocephin and azithromycin Scheduled Albuterol, solumedrol supplemental oxygen to keep sats >90% Flu, RSV, covid neg Acute blood loss anemia 6.1/20.5 2 units PRBC ordered in the ED GI consultation, may need EGD when respiratory status improved Supratherapeutic INR 8.8 s/p vitamin K in the ED Hold Warfarin Hyperkalemia Lokelma follow Paroxysmal atrial fibrillation Seems to be in and out of RVR Continue beta-fior Hold warfarin due to GI bleeding Hypertension Soft blood pressures Hold any antihypertensive medications Ischemic cardiomyopathy Status post pacemaker DVT prophylaxis with SCD boots due to anemia and GI bleed Full code Quality Stroke Does the patient have a stroke diagnosis?: No VTE Prior VTE?: No VTE Risk Level:: Medical - moderate - high VTE Device Contraindication: N/A - Device Ordered VTE Drug Contraindication: Treatment Not Indicated
[2024-08-14] MEDS: Phytonadione (Vit K1) 10 MG in 0.9 % Sodium Chloride 50 ML 51 MG IV (15:46)
[2024-08-14] MEDS: Sodium Zirconium Cyclosilicate 5 GM POWD.PACK PO (16:29)
--- NOTE | 2024-08-14 16:29 | PHA.MEDREC ---
Addendum entered by Estela Sher RPh 08/14/24 17:14: reviewed by [facility]. Original Note: Pharmacy Consult ? Medication Reconciliation Pharmacy has completed the medication reconciliation. Spoke with patient and he confirmed his medications. Patient confirmed he gets a Spiriva and Symbicort inhalers from [facility], he did not remember the dose of either of them at this time but confirmed he takes 1 puff twice a day of the Spiriva and 2 puffs twice a day of the Symbicort. He confirmed his Warfarin 5mg tab and was able to confirm that he takes 1 tab (5mg) on Sundays, Mondays, Wednesdays, Fridays and Saturdays and 1/2 tab (2.5mg tabs) on Tuesdays and . I asked the last time he took his medications and he stated yesterday but when I asked if he took the Warfarin yesterday he got agitated and stated he thinks he does not need it and does not want to take it here and we can take them and blast them to the son .
--- NOTE | 2024-08-14 16:39 | PC.NURSE ---
Pt biba from home for sob x2 days along with 2 episodes of dark/black loose stools. Normally wears 2L O2 NC baseline, has been increasing to 3L at home d/t sob. A/ox3, respirations even and unlabored, sob/increased wob noted, inspiratory/expiratory wheezing/rhales heard throughout all lung kaplan, productive cough. Maintaining O2 sat mid 90s on 2L NC, upright in bed. Pt on pvc monitor for safety, HR- 100s, AV paced. SANITATION SUPERVISOR aware of tachycardia. Denies pain at this time. 20g IV placed left wrist and right AC. Call kumar within reach, all needs met at this time.
[2024-08-14] MEDS: Albuterol/Iprat 2.5/0.5MG 3 ML AMPUL.NEB INHALE ×2 (16:56→19:49)
[2024-08-14] MEDS: cefTRIAXone sodium 1 GM VIAL IVPUSH (16:58)
[2024-08-14 17:00] LABS: Prothrombin Time 107.5 SEC (10.9-12.4)
[2024-08-14] MEDS: Azithromycin 500 MG in 0.9 % Sodium Chloride 250 ML 125 MG IV (17:00)
[2024-08-14 17:15] LABS: INTERNATIONAL NORM RATIO 9.2 (0.9-1.1)
--- NOTE | 2024-08-14 17:18 | PC.NURSE ---
Pt found to be laying on right side in bed, hunched over. Increased wob/sob noted. Pt states no difference in my breathing, I am just comfortable this way. Respiratory at bedside with this RN giving breathing treatment. Pt repositioned to sitting upright in bed, maintaining O2 sat mid 90s on 2L NC. Remains tachy on datastage architect, HR- 110s. Blood cultures obtained and sent to lab. Call kumar within reach, all needs met at this time.
--- OUTSIDE RECORDS SUMMARY | 2024-08-14 17:21 | XMS_ITS | Encounter Summary ---
Author Organization [facility] Address [address] [place] [address] Care Team Providers Care Veneer Measurer Name Role Phone Timmy-Azalia Recinos MD Primary Care Provider Unavailable Shaw Cervantes MD Unavailable [phone] Ryan Jenkins MD Unavailable [phone] Rosalva Stern PA-C Unavailable Charbel Poe Primary Care Provider Unavailabl e Encounter Details Date Type Department Care Team Description 08/09/2019 [facility] Medical Records [address] [place] [id number] Jessica Valadez Social History Tobacco Use Types Packs/Day Years [...] on filedocumented in this encounter Care Teams Veneer Measurer Relationship Specialty Start Date End Date Azalia Esposito MD PCP - General Internal Medicine 12/02/1502/20/21 Charbel Poe [address] [place] [address] PCP - General Internal Medicine 02/21/21 Shaw Cervantes MD [address] [facility] [address] [place], [place] [id number] Specialist Cardiovascular Disease 02/18/21 Ryan Jenkins MD [address] [place] [address] Specialist Cardiology 02/18/21 Rosalva Stern PA-C [address] [place] [address] Specialist Cardiology 02/18/21 documented as of this encounter
--- OUTSIDE RECORDS SUMMARY | 2024-08-14 17:21 | XMS_ITS | Encounter Summary ---
Author Organization [facility] Address [address] [place] [address] Care Team Providers Care Forge Operator Helper Name Role Phone Sudarshan Deluca Primary Care Provider Unav ailable Shin Núñez MD Primary Care Provider [phone] Azalia Esposito MD Primary Care Provider Unavailable Azalia Esposito MD Primary Care Provider Unavailable Shaw Cervantes MD Unavailable [phone] Ryan Jenkins MD Unavailable [phone] Rosalva Stern PA-C Unavailable Charbel Poe Primary Care Provider Unavailabl e Encounter Details Date Type Department Care Team Description 07/09/2009 Hospital Medical Records [address] [place] [address] Jason Recinos MD Social History Tobacco Use Types Packs/Day [...] on filedocumented in this encounter Care Teams Forge Operator Helper Relationship Specialty Start Date End Date Sudarshan Deluca PCP - General 05/06/10 12/30/14 Shin Núñez MD [address] [place] [address] PCP - General 07/08/09 05/05/10 Timmy-Azalia Recinos MD [address] [place] [address] PCP - General Internal Medicine 12/02/15 02/20/21 Azalia Esposito MD [address] [place] [address] PCP - General 12/31/14 12/01/15 Charbel Poe [address] [place] [address] PCP - General Internal Medicine 02/21/21 Shaw Cervantes MD [address] [place] [address] Specialist Cardiovascular Disease 02/18/21 Ryan Jenkins MD [address] [place] [address] Specialist Cardiology 02/18/21 Rosalva Stern PA-C [address] [place] [address] Specialist Cardiology 02/18/21 documented as of this encounter
--- OUTSIDE RECORDS SUMMARY | 2024-08-14 17:21 | XMS_ITS | Encounter Summary ---
Author Organization [facility] Address [address] [place] [address] Care Team Providers Care Intelligence Senior Sergeant Name Role Phone Timmy-Azalia Recinos MD Primary Care Provider Unavailable Shaw Cervantes MD Unavailable [phone] Ryan Jenkins MD Unavailable [phone] Rosalva Stern PA-C Unavailable Charbel Poe Primary Care Provider Unavailabl e Encounter Details Date Type Department Care Team Description 12/13/2015 Grape Pruner Report Medical Records [address] [place] [address] Abstract, Provider Social History Tobacco Use Types [...] on filedocumented in this encounter Care Teams Intelligence Senior Sergeant Relationship Specialty Start Date End Date Azalia Esposito MD PCP - General Internal Medicine 12/02/1502/20/21 Charbel Poe [address] [address] PCP - General Internal Medicine 02/21/21 Shaw Cervantes MD [address] [place] [address] Specialist Cardiovascular Disease 02/18/21 Ryan Jenkins MD [address] [place] [address] Specialist Cardiology 02/18/21 Rosalva Stern PA-C [address] [place] [address] Specialist Cardiology 02/18/21 documented as of this encounter
--- OUTSIDE RECORDS SUMMARY | 2024-08-14 17:21 | XMS_ITS | Encounter Summary ---
Author Organization [facility] Address [address] [place] [address] Care Team Providers Care Corrugated Sheet Material Sheeter Name Role Phone Rosenhayn-Azalia Recinos MD Primary Care Provider Unavailable Shaw Cervantes MD Unavailable [phone] Ryan Jenkins MD Unavailable [phone] Rosalva Stern PA-C Unavailable Charbel Poe Primary Care Provider Unavailabl e Reason for Visit * Reason Onset Date Comments EKG 09/25/2019 EKG Final Cardi Read Encounter Details Date Type Department Care Team Description 09/25/2019 Telephone Cardio PVC Med [address] [facility] [address] [place] [address] Ynes Cevallos MD EKG (EKG Final Cardi Read) Social History Tobacco Use Types Packs/Day Years [...] encounter Miscellaneous Notes * Telephone Encounter - Milo Chan M.A. - 09/27/2019 8:51 AM EDT FYI * Telephone Encounter - Chichi Patel - 09/25/2019 5:46 PM EDT EKG FINAL CARDI READ Faxed EKG to [phone] documented in this encounter Plan of Treatment Not on file documented as of this encounter Visit Diagnoses Not on filedocumented in this encounter Care Teams Corrugated Sheet Material Sheeter Relationship Specialty Start Date End Date Rosenhayn-Azalia Recinos MD PCP - General Internal Medicine 12/02/1502/20/21 Charbel Poe 300 [facility] [address] [place] [address] PCP - General Internal Medicine 02/21/21 Shaw Cervantes MD [address] [place] [address] Specialist Cardiovascular Disease 02/18/21 Ryan Jenkins MD [address] [place] [address] Specialist Cardiology 02/18/21 Rosalva Stern PA-C 300 [facility] [address] [place] [address] Specialist Cardiology 02/18/21 documented as of this encounter
--- OUTSIDE RECORDS SUMMARY | 2024-08-14 17:21 | XMS_ITS | Encounter Summary ---
Author Organization [facility] Address [address] [place] [address] Care Team Providers Care Senior Warehouse Clerk Name Role Phone Timmy-Azalia Recinos MD Primary Care Provider Unavailable Shaw Cervantes MD Unavailable [phone] Ryan Jenkins MD Unavailable [phone] Rosalva Stern PA-C Unavailable Charbel Poe Primary Care Provider Unavailabl e Encounter Details Date Type Department Care Team Description 08/09/2019 [facility] Medical Records [address] [place] [address] Johan Barragan MD Social History Tobacco Use Types Packs/Day [...] on filedocumented in this encounter Care Teams Senior Warehouse Clerk Relationship Specialty Start Date End Date Azalia Esposito MD PCP - General Internal Medicine 12/02/1502/20/21 Charbel Poe [address] [place] [address] PCP - General Internal Medicine 02/21/21 Shaw Cervantes MD Medical [facility] [address] [place], [place] [address] Specialist Cardiovascular Disease 02/18/21 Ryan Jenkins MD [address] [place] [address] Specialist Cardiology 02/18/21 Rosalva Stern PA-C [address] [place] [address] Specialist Cardiology 02/18/21 documented as of this encounter
--- OUTSIDE RECORDS SUMMARY | 2024-08-14 17:21 | XMS_ITS | Encounter Summary ---
Author Organization [facility] Address [address] [place] [address] Care Team Providers Care Cane Stripper Name Role Phone Sudarshan Deluca Primary Care Provider Unav ailable Shin Núñez MD Primary Care Provider [phone] Azalia Esposito MD Primary Care Provider Unavailable Azalia Esposito MD Primary Care Provider Unavailable Shaw Cervantes MD Unavailable [phone] Ryan Jenkins MD Unavailable Rosalva Stern PA-C Unavailable Charbel Poe Primary Care Provider Unavailabl e Encounter Details Date Type Department Care Team Description 07/08/2009 Hospital Medical Records [address] [place] [address] Ruperto Louise MD Social History Tobacco Use Types Packs/Day [...] on filedocumented in this encounter Care Teams Cane Stripper Relationship Specialty Start Date End Date Sudarshan Deluca PCP - General 05/06/10 12/30/14 Shin Núñez MD [address] [place] [address] PCP - General 07/08/09 05/05/10 Timmy-Azalia Recinos MD [address] [place] [address] PCP - General Internal Medicine 12/02/15 02/20/21 Azalia Esposito MD [address] [place] [address] PCP - General 12/31/14 12/01/15 Charbel Poe [address] [place] [address] PCP - General Internal Medicine 02/21/21 Shaw Cervantes MD [address] [place] [address] Specialist Cardiovascular Disease 02/18/21 Ryan Jenkins MD [address] [place] [address] Specialist Cardiology 02/18/21 Rosalva Stern PA-C [address] [place] [address] Specialist Cardiology 02/18/21 documented as of this encounter
--- OUTSIDE RECORDS SUMMARY | 2024-08-14 17:21 | XMS_ITS | Encounter Summary ---
Author Organization [facility] Address [address] [place] [address] Care Team Providers Care Cooler Operator Name Role Phone Azalia Esposito MD Primary Care Provider Unavailable Azalia Esposito MD Primary Care Provider Unavailable Shaw Cervantes MD Unavailable [phone] Ryan Jenkins MD Unavailable [phone] Rosalva Stern PA-C Unavailable Charbel Poe Primary Care Provider Unavailabl e Encounter Details Date Type Department Care Team Description 10/09/2015 Grain Merchandiser Report Medical Records [address] [place] [address] Dept., [facility] Occupational & Pt Social History Tobacco Use Types Packs/Day Years [...] on filedocumented in this encounter Care Teams Cooler Operator Relationship Specialty Start Date End Date Azalia Esposito MD PCP - General Internal Medicine 12/02/1502/20/21 Azalia Esposito MD PCP - General 12/31/1411/30 Charbel Poe [address] [place] [address] PCP - General Internal Medicine 02/21/21 Shaw Cervantes MD [address] [place] [address] Specialist Cardiovascular Disease 02/18/21 Ryan Jenkins MD [address] [place] [address] Specialist Cardiology 02/18/21 Rosalva Stern PA-C [address] [place] [address] Specialist Cardiology 02/18/21 documented as of this encounter
--- OUTSIDE RECORDS SUMMARY | 2024-08-14 17:21 | XMS_ITS | Encounter Summary ---
Author Organization [facility] Address [address] [place] [address] Care Team Providers Care Ui Software Developer Name Role Phone Timmy-Azalia Recinos MD Primary Care Provider Unavailable Shaw Cervantes MD Unavailable [phone] Ryan Jenkisn MD Unavailable [phone] Rosalva Stern PA-C Unavailable Charbel Poe Primary Care Provider Unavailabl e Encounter Details Date Type Department Care Team Description 09/14/2018 Business Doc Medical Records [address] [place] [address] Abstract, Provider Social History Tobacco Use Types [...] on filedocumented in this encounter Care Teams Ui Software Developer Relationship Specialty Start Date End Date Azalia Esposito MD PCP - General Internal Medicine 12/02/1502/20/21 Charbel Poe [address] [address] PCP - General Internal Medicine 02/21/21 Shaw Cervantes MD [address] [place] [address] Specialist Cardiovascular Disease 02/18/21 Ryan Jenkins MD [address] [place] [address] Specialist Cardiology 02/18/21 Rosalva Stern PA-C [address] [place] [address] Specialist Cardiology 02/18/21 documented as of this encounter
--- OUTSIDE RECORDS SUMMARY | 2024-08-14 17:21 | XMS_ITS | Encounter Summary ---
Author Organization [facility] Address [address] [place] [address] Care Team Providers Care Donor Relations Associate Name Role Phone Azalia Esposito MD Primary Care Provider Unavailable Azalia Esposito MD Primary Care Provider Unavailable Shaw Cervantes MD Unavailable [phone] Ryan Jenkins MD Unavailable [phone] Rosalva Stern PA-C Unavailable Charbel Poe Primary Care Provider Unavailabl e Encounter Details Date Type Department Care Team Description 12/31/2014 Orders Only Adult Medicine - [address] [address] Hari Cristobal PA-C [address] [place] [address] COPD (chronic obstructive pulmonary disease) (Primary Dx) [...] PM EDT COPD (chronic obstructive pulmonary disease) [place] NONINVASIVE EAR/PULSE OXIMETRY SINGLE DETER Routine 12/31/2014 6:35 PM EDT COPD (chronic obstructive pulmonary disease) [place] PRESSURIZED/NONPRESSURI ZED INHALATION TREATMENT Routine 12/31/2014 6:35 PM EDT COPD (chronic obstructive pulmonary disease) documented in this encounter Visit Diagnoses Diagnosis COPD (chronic obstructive pulmonary disease) (HCC)- Primary Chronic airway obstruction, not elsewhere classified documented in this encounter Care Teams Donor Relations Associate Relationship Specialty Start Date End Date Morris-Azalia Recinos MD PCP - General Internal Medicine 12/02/1502/20/21 Morris-Azalia Recinos MD PCP - General 12/31/1411/30 Charbel Poe [address] [place] [address] PCP - General Internal Medicine 02/21/21 Shaw Cervantes MD [address] [place] [address] Specialist Cardiovascular Disease 02/18/21 Ryan Jenkins MD [address] [place] [address] Specialist Cardiology 02/18/21 Rosalva Stern PA-C [address] [place] [address] Specialist Cardiology 02/18/21 documented as of this encounter
--- OUTSIDE RECORDS SUMMARY | 2024-08-14 17:21 | XMS_ITS | Clinical Summary ---
Author Organization [facility] Address [address] [place] [address] Care Team Providers Care Clinical Project Leader Name Role Phone Charbel Poe MD Primary Care Provider [phone] Surgical History Surgery Date Site/Laterality Comments OTHER SURGICAL HISTORY PROCEDURE: DENIES PREVIOUS SURGERY COLONOSCOPY 07/09/2009 PROCEDURE: HISTORICAL COLONOSCOPY; COMMENT: [facility]. Diverticulosis. UPPER GASTROINTESTINAL ENDOSCOPY 07/09/2009 PROCEDURE: [place] UPPER GI ENDOSCOPY PERFORMED; COMMENT: [facility], GI bleed. No significant abnormalities. Medical History Medical History Date Comments Iron deficiency anemia 07/16/2009 DX:Iron d eficiency anemia Tobacco abuse 07/16/2009 DX:Tobacco abuse ; COMMENT: Has tried Wellbutrin, Chantix, hypnotherapy, nicotine patch and gum 10/22 - [employer] unable to contact after 5 attempts Diverticulosis, sigmoid 07/16/2009 DX:Diver ticulosis, sigmoid; COMMENT: Lower GI bleed 06/23. Admitted to [facility]. Colonoscopy 06/23. 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
--- OUTSIDE RECORDS SUMMARY | 2024-08-14 17:21 | XMS_ITS | Encounter Summary ---
Author Organization [facility] Address [address] [place] [address] Care Team Providers Care District Home Economics Agent Name Role Phone Timmy-Azalia Recinos MD Primary Care Provider Unavailable Shaw Cervantes MD Unavailable [phone] Ryan Jenkins MD Unavailable [phone] Rosalva Stern PA-C Unavailable Charbel Poe Primary Care Provider Unavailabl e Encounter Details Date Type Department Care Team Description 11/24/2018 Raking Machine Operator Report Medical Records [address] [place] [id number] [place] [address] Social History Tobacco Use Types Packs/Day Years [...] on filedocumented in this encounter Care Teams District Home Economics Agent Relationship Specialty Start Date End Date Azalia Esposito MD PCP - General Internal Medicine 12/02/1502/20/21 Charbel Poe [address] [address] PCP - General Internal Medicine 02/21/21 Shaw Cervantes MD [address] [place] [address] Specialist Cardiovascular Disease 02/18/21 Ryan Jenkins MD [address] [place] [address] Specialist Cardiology 02/18/21 Rosalva Stern PA-C [address] [place] [address] Specialist Cardiology 02/18/21 documented as of this encounter
--- OUTSIDE RECORDS SUMMARY | 2024-08-14 17:21 | XMS_ITS | Encounter Summary ---
Author Organization [facility] Address [address] [place] [address] Care Team Providers Care Belt Picker Name Role Phone Timmy-Azalia Recinos MD Primary Care Provider Unavailable Shaw Cervantes MD Unavailable [phone] Ryan Jenkins MD Unavailable [phone] Rosalva Stern PA-C Unavailable Charbel Poe Primary Care Provider Unavailabl e Encounter Details Date Type Department Care Team Description 08/25/2019 [facility] Medical Records [address] [place] [address] [place] Meijeremy [place] [address] [place] [address] Social History Tobacco Use Types Packs/Day Years [...] on filedocumented in this encounter Care Teams Belt Picker Relationship Specialty Start Date End Date Azalia Esposito MD PCP - General Internal Medicine 12/02/1502/20/21 Charbel Poe [address] [place] [address] PCP - General Internal Medicine 02/21/21 Shaw Cervantes MD [address] [place] [address] Specialist Cardiovascular Disease 02/18/21 Ryan Jenkins MD [address] [place] [address] Specialist Cardiology 02/18/21 Rosalva Stern PA-C [address] [place] [address] Specialist Cardiology 02/18/21 documented as of this encounter
--- OUTSIDE RECORDS SUMMARY | 2024-08-14 17:21 | XMS_ITS | Encounter Summary ---
Author Organization [facility] Address [address] [place] [address] Care Team Providers Care Patent Attorney Name Role Phone Sudarshan Deluca Primary Care Provider Unav ailable Shin Núñez MD Primary Care Provider [phone] Azalia Esposito MD Primary Care Provider Unavailable Azalia Esposito MD Primary Care Provider Unavailable Shaw Cervantes MD Unavailable [phone] Ryan Jenkins MD Unavailable [phone] Rosalva Stern PA-C Unavailable Charbel Poe Primary Care Provider Unavailabl e Encounter Details Date Type Department Care Team Description 07/08/2009 Hospital Medical Records [address] [place] [address] Santana Louis MD Social History Tobacco Use [...] on filedocumented in this encounter Care Teams Patent Attorney Relationship Specialty Start Date End Date Sudarshan Deluca PCP - General 05/06/10 12/30/14 Shin Núñez MD [address] [place] [address] PCP - General 07/08/09 05/05/10 Timmy-Azalia Recinos MD [address] [place] [address] PCP - General Internal Medicine 12/02/15 02/20/21 Azalia Esposito MD [address] [place] [address] PCP - General 12/31/14 12/01/15 Charbel Poe [address] [place] [address] PCP - General Internal Medicine 02/21/21 Shaw Cervantes MD [address] [place] [address] Specialist Cardiovascular Disease 02/18/21 Ryan Jenkins MD [address] [place] [address] Specialist Cardiology 02/18/21 Rosalva Stern PA-C [address] [place] [address] Specialist Cardiology 02/18/21 documented as of this encounter
--- OUTSIDE RECORDS SUMMARY | 2024-08-14 17:21 | XMS_ITS | Encounter Summary ---
Author Organization [facility] Address [address] [place] [address] Care Team Providers Care Subway Repair Supervisor Name Role Phone Shaw Cervantes MD Unavailable [phone] Ryan Jenkins MD Unavailable [phone] Rosalva Stern PA-C Unavailable Charbel Poe Primary Care Provider Unavailabl e Encounter Details Date Type Department Care Team Description 12/31/2023 Oriental Rug Repairer Report Medical Records [address] [place] [address] Social History Tobacco Use Types Packs/Day Years [...] on filedocumented in this encounter Care Teams Subway Repair Supervisor Relationship Specialty Start Date End Date Charbel Poe 300 [facility] [address] [place] [address] PCP - General Internal Medicine 02/21/21 Shaw Cervantes MD [address] [facility] [address] [place] [address] Specialist Cardiovascular Disease 02/18/21 Ryan Jenkins MD 300 [facility] [address] [place] [address] Specialist Cardiology 02/18/21 Rosalva Stern PA-C [address] [place] [address] Specialist Cardiology 02/18/21 documented as of this encounter
--- OUTSIDE RECORDS SUMMARY | 2024-08-14 17:21 | XMS_ITS | Encounter Summary ---
Author Organization [facility] Address [address] [place] [address] Care Team Providers Care Stripping Shovel Operator Name Role Phone Sudarshan Deluca Primary Care Provider Unav ailable Shin Núñez MD Primary Care Provider [phone] Azalia Esposito MD Primary Care Provider Unavailable Azalia Esposito MD Primary Care Provider Unavailable Shaw Cervantes MD Unavailable [phone] Ryan Jenkins MD Unavailable [phone] Rosalva Stern PA-C Unavailable Charbel Poe Primary Care Provider Unavailabl e Encounter Details Date Type Department Care Team Description 07/11/2009 Hospital Medical Records [address] [place] [address] Onesimo Rockwell Social History Tobacco Use Types [...] on filedocumented in this encounter Care Teams Stripping Shovel Operator Relationship Specialty Start Date End Date Sudarshan Deluca PCP - General 05/06/10 12/30/14 Shin Núñez MD [address] [place] [address] PCP - General 07/08/09 05/05/10 Timmy-Azalia Recinos MD [address] [place] [address] PCP - General Internal Medicine 12/02/15 02/20/21 Azalia Esposito MD [address] [place] [address] PCP - General 12/31/14 12/01/15 Charbel Poe [address] [place] [address] PCP - General Internal Medicine 02/21/21 Shaw Cervantes MD [address] [place] [address] Specialist Cardiovascular Disease 02/18/21 Ryan Jenkins MD [address] [place] [address] Specialist Cardiology 02/18/21 Rosalva Stern PA-C [address] [facility] [address] [place] [address] Specialist Cardiology 02/18/21 documented as of this encounter
--- OUTSIDE RECORDS SUMMARY | 2024-08-14 17:21 | XMS_ITS | Encounter Summary ---
Author Organization [facility] Address [address] [place] [address] Care Team Providers Care Stock Grader Name Role Phone Timmy-Azalia Recinos MD Primary Care Provider Unavailable Shaw Cervantes MD Unavailable [phone] Ryan Jenkins MD Unavailable [phone] Rosalva Stern PA-C Unavailable Charbel Poe Primary Care Provider Unavailabl e Encounter Details Date Type Department Care Team Description 09/27/2019 Home Health Certification Medical Records [address] [place] [address] [employer] Social History Tobacco Use Types Packs/Day Years [...] on filedocumented in this encounter Care Teams Stock Grader Relationship Specialty Start Date End Date Azalia Esposito MD PCP - General Internal Medicine 12/02/1502/20/21 Charbel Poe [address] [address] PCP - General Internal Medicine 02/21/21 Shaw Cervantes MD [address] [place] [address] Specialist Cardiovascular Disease 02/18/21 Ryan Jenkins MD [address] [place] [address] Specialist Cardiology 02/18/21 Rosalva Stern PA-C [address] [place] [address] Specialist Cardiology 02/18/21 documented as of this encounter
--- OUTSIDE RECORDS SUMMARY | 2024-08-14 17:21 | XMS_ITS | Encounter Summary ---
Author Organization [facility] Address [address] [place] [address] Care Team Providers Care Apparel Manufacture Instructor Name Role Phone Azalia Esposito MD Primary Care Provider Unavailable Shaw Cervantes MD Unavailable [phone] Ryan Jenkins MD Unavailable [phone] Rosalva Stern PA-C Unavailable Charbel Poe Primary Care Provider Unavailabl e Reason for Visit * Reason Onset Date Comments Form 09/11/2019 [facility] 08/31/2019- Encounter Details Date Type Department Care Team Description 09/11/2019 Telephone Adult Medicine - [address] [address] Azalia Esposito MD Form ([facility] 08/31/2019-10/29/2019) Social History Tobacco Use Types Packs/Day Years [...] encounter Miscellaneous Notes * Telephone Encounter - Enma Flaherty M.A. - 09/13/2019 10:08 AM EDT Sent to pcp * Telephone Encounter - Enma Flaherty M.A. - 09/13/2019 10:01 AM EDT Start of Care Date: 08/31/19 Date of certification period: 08/31/19-10/29/19 Hospice patient: No. Home Care Agency: [facility] * Telephone Encounter - Ailyn Fragoso - 09/11/2019 10:29 AM EDT HOME HEALTH CERTIFICATION AND PLAN OF CARE DATE RECEIVED:09/11/2019 AGENCY:[facility] CERT DATES:08/30-10/29/2019 FAX NUMBER:[phone] LOCATION OF [facility]:Call center documented in this encounter Plan of Treatment Not on file documented as of this encounter Visit Diagnoses Diagnosis Cellulitis of right lower limb- Primary Cellulitis of left lower limb Hypertensive heart disease with heart failure (HCC) Unspecified hypertensive heart disease with heart failure Acute systolic (congestive) heart failure (HCC) Chronic obstructive pulmonary disease with acute exacerbation (HCC) Obstructive chronic bronchitis with exacerbation Atrial fibrillation, unspecified type (HCC) Atrial flutter, unspecified type (HCC) Thrombophilia (HCC) Other and unspecified coagulation defects Obesity, unspecified classification, unspecified obesity type, unspecified whether serious comorbidity present Hypokalemia Hypopotassemia Hypomagnesemia Disorders of magnesium metabolism Nicotine dependence, cigarettes, uncomplicated Hyperlipidemia, unspecified hyperlipidemia type Dvtrcli of intest, part unsp, 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, in remission Nondependent alcohol abuse, in remission [facility] (current) use of inhaled steroids 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 on supplemental 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 (current) use of anticoagulants Long-term (current) use of anticoagulants documented in this encounter Care Teams Apparel Manufacture Instructor Relationship Specialty Start Date End Date [place]-Azalia Recinos MD PCP - General Internal Medicine 12/02/1502/20/21 Charbel Poe [address] [place] [address] PCP - General Internal Medicine 02/21/21 Shaw Cervantes MD [address] [place] [address] Specialist Cardiovascular Disease 02/18/21 Ryan Jenkins MD 300 [facility] [address] [place] [address] Specialist Cardiology 02/18/21 Rosalva Stern PA-C 300 [facility] [address] [place] [address] Specialist Cardiology 02/18/21 documented as of this encounter
--- OUTSIDE RECORDS SUMMARY | 2024-08-14 17:22 | XMS_ITS | Encounter Summary ---
Author Organization [facility] Address [address] [place] [address] Care Team Providers Care Rpg Programmer Analyst Name Role Phone Azalia Esposito MD Primary Care Provider Unavailable Shaw Cervantes MD Unavailable [phone] Ryan Jenkins MD Unavailable [phone] Rosalva Stern PA-C Unavailable Charbel Poe Primary Care Provider Unavailabl e Reason for Visit * Reason Onset Date Comments Faxed Order 11/29/2019 [facility] Encounter Details Date Type Department Care Team Description 11/29/2019 Telephone Adult [address] [id number] Azalia Esposito MD Faxed Order ([facility] [...] providers bin for signature, fax back to [phone] documented in this encounter Plan of Treatment Not on file documented as of this encounter Visit Diagnoses Not on filedocumented in this encounter Care Teams Rpg Programmer Analyst Relationship Specialty Start Date End Date [place]-Azalia Recinos MD PCP - General Internal Medicine 12/02/1502/20/21 Charbel Poe [address] [place] [address] PCP - General Internal Medicine 02/21/21 Shaw Cervantes MD [address] [place] [address] Specialist Cardiovascular Disease 02/18/21 Ryan Jenkins MD [address] [place] [address] Specialist Cardiology 02/18/21 Rosalva Stern PA-C [address] [place] [address] Specialist Cardiology 02/18/21 documented as of this encounter
--- OUTSIDE RECORDS SUMMARY | 2024-08-14 17:22 | XMS_ITS | Encounter Summary ---
Author Organization [facility] Address [address] [place] [address] Care Team Providers Care Embossing Machine Operator Name Role Phone Azalia Esposito MD Primary Care Provider Unavailable Shaw Cervantes MD Unavailable Ryan Jenkins MD Unavailable [phone] Rosalva Stern PA-C Unavailable Charbel Poe Primary Care Provider Unavailabl e Reason for Referral * EXTERNAL (Routine) - Authorized/Booked Specialty Diagnoses / Procedures Referred By Contmima t Referred To Contact Ophthalmology Procedures REFERRAL TO EXTERNAL OPHTHALMOLOGY Azalia Esposito MD [address] [place] [address] [facility] [address] [place] [address] Referral ID Status Reason Start Date Expiration Date V isits Requested Visits Authorized SEE NOTE Authorized/B ooked 09/22/2017 12/23/2017 1 1 Encounter Details Date Type Department Care Team Description 09/22/2017 Telephone [address] [address] Velia Eller, JASE Social History Tobacco Use Types Packs/Day Years [...] encounter Miscellaneous Notes * Telephone Encounter - Sabiha Quesada M.A. - 09/22/2017 11:39 AM EDT Please refer patient to outside ophthalmology * Telephone Encounter - Maite Villanueva - 09/22/2017 11:20 AM EDT Caller requesting call back from provider: Is the caller the patient? NO If caller is not the patient, what is the callers name?Zohreh from DR Warner's office in [place] Callers relationship to patient? 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 Caller offered to speak with the nurse for assistance: YES Response: Patient offered to speak with nurse for assistance and patient agreed. Message forwarded to nurse. documented in this encounter Plan of Treatment Not on file documented as of this encounter Visit Diagnoses Not on filedocumented in this encounter Care Teams Embossing Machine Operator Relationship Specialty Start Date End Date [place]-Azalia Recinos MD PCP - General Internal Medicine 12/02/1502/20/21 Charbel Poe 300 [facility] [address] [place] [address] PCP - General Internal Medicine 02/21/21 Shaw Cervantes MD [address] [facility] [address] [place] [address] Specialist Cardiovascular Disease 02/18/21 Ryan Jenkins MD [address] [place] [address] Specialist Cardiology 02/18/21 Rosalva Stern PA-C 300 [facility] [address] [place] [address] Specialist Cardiology 02/18/21 documented as of this encounter
--- OUTSIDE RECORDS SUMMARY | 2024-08-14 17:22 | XMS_ITS | Encounter Summary ---
Author Organization [facility] Address [address] [place] [address] Care Team Providers Care Filing And Polishing Supervisor Name Role Phone Shaw Cervantes MD Unavailable [phone] Ryan Jenkins MD Unavailable [phone] Rosalva Stern PA-C Unavailable Charbel Poe Primary Care Provider Unavailabl e Encounter Details Date Type Department Care Team Description 11/17/2021 Transfer Records Medical Records [address] [place] [id number] Abstract, Provider Social History Tobacco Use Types [...] on filedocumented in this encounter Care Teams Filing And Polishing Supervisor Relationship Specialty Start Date End Date Charbel Poe 300 [facility] [address] [place] [address] PCP - General Internal Medicine 02/21/21 Shaw Cervantes MD Medical [facility] [address] [place] [address] Specialist Cardiovascular Disease 02/18/21 Ryan Jenkins MD 300 [facility] [address] [place] [address] Specialist Cardiology 02/18/21 Rosalva Stern PA-C [address] [place] [address] Specialist Cardiology 02/18/21 documented as of this encounter
--- OUTSIDE RECORDS SUMMARY | 2024-08-14 17:22 | XMS_ITS | Encounter Summary ---
Author Organization [facility] Address [address] [place] [address] Care Team Providers Care Car Greaser Name Role Phone Shaw Cervantes MD Unavailable Ryan Jenkins MD Unavailable Rosalva Stern PA-C Unavailable Charbel Poe Primary Care Provider Unavailabl e Encounter Details Date Type Department Care Team Description 05/15/2022 Putty And Patch Worker Report Medical Records [address] [place] [address] Agnieszka Zapata MD [address] [place] [address] [address] [place] [address] Social History Tobacco Use Types Packs/Day Years [...] on filedocumented in this encounter Care Teams Car Greaser Relationship Specialty Start Date End Date Charbel Poe [address] [place] [address] PCP - General Internal Medicine 02/21/21 Shaw Cervantes MD [address] [facility] [address] [place] [address] Specialist Cardiovascular Disease 02/18/21 Ryan Jenkins MD [address] [place] [address] Specialist Cardiology 02/18/21 Rosalva Setrn PA-C [address] [place] [address] Specialist Cardiology 02/18/21 documented as of this encounter
--- OUTSIDE RECORDS SUMMARY | 2024-08-14 17:22 | XMS_ITS | Encounter Summary ---
Author Organization [facility] Address [address] [place] [address] Care Team Providers Care Manager Embalmer Funeral Director Name Role Phone Azalia Esposito MD Primary Care Provider Unavailable Shaw Cervantes MD Unavailable [phone] Ryan Jenkins MD Unavailable [phone] Rosalva Stern PA-C Unavailable Charbel Poe Primary Care Provider Unavailabl e Reason for Visit * Reason Onset Date Comments [facility] Call 10/03/2019 Encounter Details Date Type Department Care Team Description 10/03/2019 Telephone Adult [address] [address] Azalia Esposito MD [facility] Call Social History [...] encounter Miscellaneous Notes * Telephone Encounter - Yoni Rosario LPN - 10/03/2019 12:10 PM EDT Vna states that his bp is 112/72 hr 92 this is thorough tel health so does not read his o2 arcuately , vna will see if pt has a pulseox * Telephone Encounter - Azalia Esposito MD - 10/03/2019 11:56 AM EDT Yesterday he refused the ER. They should check his Bp and 02 sat as well. He is on max dose of lasix * Telephone Encounter - Gauri Johnston - 10/03/2019 10:52 AM EDT [facility] CALL Which [facility] office is calling? [facility] Full name of caller: Marjorie The caller is A nurse Is the caller at the patients home?: NO Reason for call: States that the pts weight is up 6.2 pounds since yesterday. States that the pt reports its due to eating more. Pt denied swelling or SOB. Please advise. Does caller need an urgent call back? NO Was CONTACT Telephone # obtained above?: YES Fax #: - documented in this encounter Plan of Treatment Not on file documented as of this encounter Visit Diagnoses Not on filedocumented in this encounter Care Teams Manager Embalmer Funeral Director Relationship Specialty Start Date End Date Azalia Esposito MD PCP - General Internal Medicine 12/02/1502/20/21 Charbel Poe [address] [place] [address] PCP - General Internal Medicine 02/21/21 Shaw Cervantes MD [address] [place] [address] Specialist Cardiovascular Disease 02/18/21 Ryan Jenkins MD [address] [place] [address] Specialist Cardiology 02/18/21 Rosalva Stern PA-C 300 [facility] [address] [place] [address] Specialist Cardiology 02/18/21 documented as of this encounter
--- OUTSIDE RECORDS SUMMARY | 2024-08-14 17:22 | XMS_ITS | Encounter Summary ---
Author Organization [facility] Address [address] [place] [address] Care Team Providers Care Tool Smith Name Role Phone [place]-Azalia Recinos MD Primary Care Provider Unavailable Shaw Cervantes MD Unavailable [phone] Ryan Jenkins MD Unavailable [phone] Rosalva Stern PA-C Unavailable Charbel Poe Primary Care Provider Unavailabl e Encounter Details Date Type Department Care Team Description 03/11/2020 Rope Walker Report Medical Records [address] [place] [address] Rosalva Stern PA-C [address] [place] [id number] Social History Tobacco Use Types Packs/Day Years [...] on filedocumented in this encounter Care Teams Tool Smith Relationship Specialty Start Date End Date Azalia Esposito MD PCP - General Internal Medicine 12/02/1502/20/21 Charbel Poe [address] [address] PCP - General Internal Medicine 02/21/21 Shaw Cervantes MD [address] [place] [address] Specialist Cardiovascular Disease 02/18/21 Ryan Jenkins MD [address] [place] [address] Specialist Cardiology 02/18/21 Rosalva Stern PA-C [address] [place] [address] Specialist Cardiology 02/18/21 documented as of this encounter
--- OUTSIDE RECORDS SUMMARY | 2024-08-14 17:22 | XMS_ITS | Encounter Summary ---
Author Organization [facility] Address [address] [place] [address] Care Team Providers Care Account Management Assistant Name Role Phone [place]-Azalia Recinos MD Primary Care Provider Unavailable Shaw Cervantes MD Unavailable [phone] Ryan Jenkins MD Unavailable Rosalva Stern PA-C Unavailable Charbel Poe Primary Care Provider Unavailabl e Encounter Details Date Type Department Care Team Description 11/22/2017 Predator Control Trapper Report Medical Records [address] [place] [id number] [place] [address] Social History Tobacco Use Types Packs/Day Years [...] on filedocumented in this encounter Care Teams Account Management Assistant Relationship Specialty Start Date End Date Azalia Esposito MD PCP - General Internal Medicine 12/02/1502/20/21 Charbel Poe [address] [address] PCP - General Internal Medicine 02/21/21 Shaw Cervantes MD [address] [place] [address] Specialist Cardiovascular Disease 02/18/21 Ryan Jenkins MD [address] [place] [address] Specialist Cardiology 02/18/21 Rosalva Stern PA-C [address] [place] [address] Specialist Cardiology 02/18/21 documented as of this encounter
--- OUTSIDE RECORDS SUMMARY | 2024-08-14 17:22 | XMS_ITS | Encounter Summary ---
Author Organization [facility] Address [address] [place] [address] Care Team Providers Care Palliative Nurse Name Role Phone [place]-Azalia Recinos MD Primary Care Provider Unavailable Shaw Cervantes MD Unavailable [phone] Ryan Jenkins MD Unavailable [phone] Rosalva Stern PA-C Unavailable Charbel Poe Primary Care Provider Unavailthuan e Reason for Visit * Reason Onset Date Comments Medical Records 08/02/2020 Encounter Details Date Type Department Care Team Description 08/02/2020 Telephone Medical Records [address] [place] [address] Abstract, Provider Medical Records Social History Tobacco Use Types Packs/Day Years Used Date Smoking Tobacco: Every Day Cigarettes 0.3 42 Smokeless Tobacco: Never Alcohol Use Standard Drinks/Week Comments Yes 0 (1 standard drink = 0.6 oz pur e alcohol) Sex Assigned at Date Recorded Not on file documented as of this encounter Miscellaneous Notes * Telephone Encounter - Shila Lowery - 08/02/2020 4:39 PM EST Faxed records to [facility] Att: Kirit Castro For New Appt. [phone]/ [phone] documented in this encounter Plan of Treatment Not on file documented as of this encounter Visit Diagnoses Not on filedocumented in this encounter Care Teams Palliative Nurse Relationship Specialty Start Date End Date [place]-Azalia Recinos MD PCP - General Internal Medicine 12/02/1502/20/21 Charbel Poe [address] [place] [address] PCP - General Internal Medicine 02/21/21 Shaw Cervantes MD [address] [place] [address] Specialist Cardiovascular Disease 02/18/21 Ryan Jenkins MD [address] [place] [address] Specialist Cardiology 02/18/21 Rosalva Stern PA-C [address] [place] [address] Specialist Cardiology 02/18/21 documented as of this encounter
--- OUTSIDE RECORDS SUMMARY | 2024-08-14 17:22 | XMS_ITS | Encounter Summary ---
Author Organization [facility] Address [address] [place] [address] Care Team Providers Care Framing Mill Supervisor Name Role Phone [place]-Azalia Recinos MD Primary Care Provider Unavailable Shaw Cervantes MD Unavailable [phone] Ryan Jenkins MD Unavailable [phone] Rosalva Stern PA-C Unavailable Charbel Poe Primary Care Provider Unavailabl e Encounter Details Date Type Department Care Team Description 11/07/2019 Hospital Medical Records [address] [place] [address] Blanca Raphael MD [address] [place] [address] Social History Tobacco Use Types Packs/Day Years [...] on filedocumented in this encounter Care Teams Framing Mill Supervisor Relationship Specialty Start Date End Date Azalia Esposito MD PCP - General Internal Medicine 12/02/1502/20/21 Charbel Poe [address] [address] PCP - General Internal Medicine 02/21/21 Shaw Cervantes MD [address] [place] [address] Specialist Cardiovascular Disease 02/18/21 Ryan Jenkins MD [address] [place] [address] Specialist Cardiology 02/18/21 Rosalva Stern PA-C [address] [place] [address] Specialist Cardiology 02/18/21 documented as of this encounter
--- OUTSIDE RECORDS SUMMARY | 2024-08-14 17:22 | XMS_ITS | Encounter Summary ---
Author Organization [facility] Address [address] [place] [address] Care Team Providers Care Dining Room Cashier Name Role Phone [place]-Azalia Recinos MD Primary Care Provider Unavailable Shaw Cervantes MD Unavailable [phone] Ryan Jenkins MD Unavailable [phone] Rosalva Stern PA-C Unavailable Charbel Poe Primary Care Provider Unavailabl e Encounter Details Date Type Department Care Team Description 12/27/2020 Senior Linux Engineer Report Medical Records [address] [place] [address] [facility] [address] [place] [address] Social History Tobacco Use Types Packs/Day Years [...] on filedocumented in this encounter Care Teams Dining Room Cashier Relationship Specialty Start Date End Date Azalia Esposito MD PCP - General Internal Medicine 12/02/1502/20/21 Charbel Poe [address] [place] [address] PCP - General Internal Medicine 02/21/21 Shaw Cervantes MD [address] [place] [address] Specialist Cardiovascular Disease 02/18/21 Ryan Jenkins MD [address] [place] [address] Specialist Cardiology 02/18/21 Rosalva Stern PA-C [address] [place] [address] Specialist Cardiology 02/18/21 documented as of this encounter
--- OUTSIDE RECORDS SUMMARY | 2024-08-14 17:22 | XMS_ITS | Encounter Summary ---
Author Organization [facility] Address [address] [place] [address] Care Team Providers Care Server Developer Name Role Phone Shaw Cervantes MD Unavailable [phone] Ryan Jenkins MD Unavailable [phone] Rosalva Stern PA-C Unavailable Charbel Poe Primary Care Provider Unavailabl e Reason for Visit * Reason Onset Date Comments E-prescribe Rx Request 06/10/2021 incoming Fax [facility] Pharmacy Lopressor Encounter Details Date Type Department Care Team Description 06/10/2021 Refill Cardio PVC POC 154 300 [facility] [address] [place] [address] Rosalva Stern PA-C [address] [place] [phone] E-prescribe Rx Request (incoming Fax [facility] Pharmacy Lopressor ) Social History Tobacco Use [...] on filedocumented in this encounter Care Teams Server Developer Relationship Specialty Start Date End Date Charbel Poe [address] [place] [address] PCP - General Internal Medicine 02/21/21 Shaw Cervantes MD [address] [place] [address] Specialist Cardiovascular Disease 02/18/21 Ryan Jenkins MD [address] [place] [address] Specialist Cardiology 02/18/21 Rosalva Stern PA-C 300 [facility] [address] [place] [address] Specialist Cardiology 02/18/21 documented as of this encounter
--- OUTSIDE RECORDS SUMMARY | 2024-08-14 17:22 | XMS_ITS | Encounter Summary ---
Author Organization [facility] Address [address] [place] [address] Care Team Providers Care Chip Tester Name Role Phone Azalia Esposito MD Primary Care Provider Unavailable Shaw Cervantes MD Unavailable [phone] Ryan Jenkins MD Unavailable [phone] Rosalva Stern PA-C Unavailable Charbel Poe Primary Care Provider Unavailabl e Encounter Details Date Type Department Care Team Description 10/26/2016 Hat Parts Cutter Machine Report Medical Records [address] [place] [address] Caron Gomez PA-C [address] [address] Social History Tobacco Use Types [...] on filedocumented in this encounter Care Teams Chip Tester Relationship Specialty Start Date End Date Azalia Esposito MD PCP - General Internal Medicine 12/02/1502/20/21 Charbel Poe [address] [place] [address] PCP - General Internal Medicine 02/21/21 Shaw Cervantes MD [address] [place] [address] Specialist Cardiovascular Disease 02/18/21 Ryan Jenkins MD [address] [place] [address] Specialist Cardiology 02/18/21 Rosalva Stern PA-C [address] [place] [address] Specialist Cardiology 02/18/21 documented as of this encounter
--- OUTSIDE RECORDS SUMMARY | 2024-08-14 17:22 | XMS_ITS | Encounter Summary ---
Author Organization [facility] Address [address] [place] [address] Care Team Providers Care Prune Washer Name Role Phone [place]-Azalia Recinos MD Primary Care Provider Unavailable Shaw Cervantes MD Unavailable [phone] Ryan Jenkins MD Unavailable [phone] Rosalva Stern PA-C Unavailable Charbel Poe Primary Care Provider Unavailabl e Reason for Referral * EXTERNAL (Priority) - Authorized/Booked Specialty Diagnoses / Procedures Referred By Contac t Referred To Contact Pulmonology Procedures REFERRAL TO PULMONOLOGY Angel Shay PA-C [address] [place] [phone] Calos Almeida MD [address] [place] [phone] Referral ID Status Reason Start Date Expiration Date V isits Requested Visits Authorized SEE NOTE Authorized/B ooked 11/27/2016 03/11/2017 1 1 Encounter Details Date Type Department Care Team Description 11/24/2016 Telephone Adult Medicine - [place] [address] [place] [address] Angel Shay PA-C Social History Tobacco Use Types Packs/Day [...] encounter Miscellaneous Notes * Telephone Encounter - Angel Shay PA-C - 11/27/2016 12:31 PM EDT I spoke with the patient regarding his recent low dose chest CT given his smoking history. I discussed the results with my precepting physician, Dr. Pineda and we both agree that referral to pulmonology should be placed. I discussed this with the patient. Referral has been placed. I have answered all the patient's questions to his satisfaction. He understands and agrees with this plan. I informed him that pulmonary would reach out to him very soon. documented in this encounter Plan of Treatment Not on file documented as of this encounter Visit Diagnoses Not on filedocumented in this encounter Care Teams Prune Washer Relationship Specialty Start Date End Date [place]-Azalia Recinos MD PCP - General Internal Medicine 12/02/1502/20/21 Charbel Poe 300 [facility] [address] [place] [address] PCP - General Internal Medicine 02/21/21 Shaw Cervantes MD [address] [place] [address] Specialist Cardiovascular Disease 02/18/21 Ryan Jenkins MD [address] [place] [address] Specialist Cardiology 02/18/21 Rosalva Stern PA-C 300 [facility] [address] [place] [address] Specialist Cardiology 02/18/21 documented as of this encounter
--- OUTSIDE RECORDS SUMMARY | 2024-08-14 17:22 | XMS_ITS | Encounter Summary ---
Author Organization [facility] Address [address] [place] [address] Care Team Providers Care Patient Services Representative Name Role Phone Azalia Esposito MD Primary Care Provider Unavailable Shaw Cervantes MD Unavailable [phone] Ryan Jenkins MD Unavailable [phone] Rosalva Stern PA-C Unavailable Charbel Poe Primary Care Provider Unavailabl e Reason for Visit * Reason Onset Date Comments medication problems 11/16/2017 Encounter Details Date Type Department Care Team Description 11/16/2017 Telephone Adult [facility] - [address] [address] Azalia Esposito MD medication problems Social History [...] on filedocumented in this encounter Care Teams Patient Services Representative Relationship Specialty Start Date End Date Azalia Esposito MD PCP - General Internal Medicine 12/02/1502/20/21 Charbel Poe [address] [address] PCP - General Internal Medicine 02/21/21 Shaw Cervantes MD [address] [address] Specialist Cardiovascular Disease 02/18/21 Ryan Jenkins MD 300 [facility] [address] [place] [address] Specialist Cardiology 02/18/21 Rosalva Stern PA-C [address] [address] Specialist Cardiology 02/18/21 documented as of this encounter
--- OUTSIDE RECORDS SUMMARY | 2024-08-14 17:22 | XMS_ITS | Clinical Summary ---
Author Organization [facility] Address [address] [place] [address] Care Team Providers Care Back Tender Name Role Phone Shaw Cervantes MD Unavailable [phone] Rayn Jenkins MD Unavailable [phone] Rosalva Stern PA-C Unavailable Charbel Poe Primary Care Provider Unavailabl e Allergies No known active allergies Medications Medication Sig Dispensed Refills Start Date End Date Status Oxygen Historical (HISTORICAL OXYGEN) Inhale 2 L into the lungs. Activity/ [facility] 0 Active digoxin (LANOXIN) 125 MCG tablet Take 0.125 mg by mouth daily. 0 08/30/2019 Active torsemide (DEMADEX) 20 MG tablet Take 5 Tabs by mouth daily. 60mg twice a day 180 Tab 1 11/15/2019 Active spironolactone (ALDACTONE) 25 MG tablet Take 0.5 Tabs by mouth daily. 15 Tab 5 11/15/2019 Active SYMBICORT 80-4.5 MCG/ACT inhaler Inhale 2 Puffs into the lungs 2 times daily. Rinse mouth after use 3 Inhaler 1 02/12/2020 Active tiotropium (SPIRIVA HANDIHALER) 18 MCG inhalation capsule INHALE THE CONTENTS OF 1 CAPSULE THROUGH THE SPIRIVA HANDIHALER IN THE MORNING EVERY DAY 90 Cap 1 02/12/2020 Active ELIQUIS 5 MG Tab Take 1 Tab by mouth 2 times daily. 180 Tab 1 02/12/2020 Active ALBUTEROL SULFATE (PROAIR HFA) 108 (90 Base) MCG/ACT Aero Soln Inhale 2 Puffs into the lungs every 4 hours as needed for Cough or Wheezing. 3 Inhaler 1 02/12/2020 Active magnesium oxide (MAG-OX) 400 MG tabletIndications:C hronic systolic heart failure (HCC) TAKE 1 TABLET BY MOUTH EVERY DAY 90 tablet 1 02/18/2021 Active metoprolol (Lopressor) 50 MG tablet Take 1.5 Tablets by mouth 3 times daily for 180 days. 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 Admitted to [facility]. Colonoscopy 06/23. Resolved Problems Problem Noted Date Resolved Date Encounter for smoking cessation counseling 10/2809/22/2018 Tender lump on R ear 09/18/2010 07/22/2011 Iron deficiency anemia 07/16/2009 1 Immunizations Name Administration Dates Next Due Influenza (> 6 Months) 04/29/2016,2014,05/04/2014,03/30 Influenza vaccine high dose age 65 and over 04/25/2019,03/14/2018 PPD-RBMG 05/28/2014,05/21/2014 Pneumoccoccal(Adult) Polysac charide PPSV23 09/13/2018,05/14/2011 Pneumococcal Conjugate PCV-13 09/13/2017 Tdap 07/16/2009 Family History Medical History Relation Name Comments CA Esophageal Brother 2 at 57 Relation Name Status Comments Brother 1 Brother 2 Father Mother Alive Social History Tobacco Use Types Packs/Day Years Used Date Smoking Tobacco: Every Day Cigarettes 0.3 42 Smokeless Tobacco: Never Tobacco Cessation:Ready to Q uit: No; Counseling Given: Yes Alcohol Use Standard Drinks/Week Comments Yes 0 (1 standard drink = 0.6 oz pur e alcohol) Sex Assigned at Date Recorded Not on file Last Filed Vital Signs Vital Sign Reading Time Taken Comments Blood Pressure 119/79 02/12/2020 10:11 AM EDT Pulse 86 02/12/2020 10:11 AM EDT Temperature 36.6 ??C (97.8 ??F) 02/12/2020 10:11 AM E DT Respiratory Rate 20 08/24/2019 10:32 AM EDT Oxygen Saturation 94% 08/24/2019 10:32 AM EDT Inhaled Oxygen Concentration - - Weight 83.5 kg (184 lb) 02/12/2020 10:11 AM EDT Height 171.5 cm (5' 7.5 ) 02/12/2020 10:11 AM ED T Body Mass Index 28.39 02/12/2020 10:11 AM EDT Plan of Treatment Health Maintenance Due Date Last Done Comments Covid-19 Vaccine (#1) 1950 DEPRESSION SCREEN 1964 SHINGLES VACCINE (1 of 2) 2002 FALL RISK ASSESSMENT 2017 DTAP/TDAP/TD (2 - Td or Tdap) 07/16/2019 07/16/2009 SPIROMETRY (BREATHING CAPACITY TEST) FOR COPD 10/17/2019 10/16/2017, 01/17/2015, 10/13/2010, Additional history exists COLON CANCER SCREEN WITH STOOL CARD 07/07/2020 07/07/2019 (External Completion) TOBACCO CHECK/ADVISE 04/25/2021 04/25/2019, 01/10/2016, 10/07/2015, Additional history exists CHOLESTEROL SCREENING 08/13/2021 08/13/2016 , 01/25/2012, 10/28/2009 Lung Cancer Screening (Low Dose CT) 12/26/2021 12/26/2020, 12/26/2020, 12/20/2019, Additional history exists INFLUENZA (#1) 2024 04/25/2019, 06/2017, 04/29/2016, Additional history exists BMI CHECK/ADVISE 06/14/2024 02/12/2020, 05/2019, 04/25/2019, Additional history exists HEPATITIS C SCREENING Completed 09/07/2012 ABDOMINAL AORTIC ANEURYSM (AAA) SCREENING Addressed 09/13/2017 (Exception) Overridden with t he intention of not completing the topic PNEUMOCOCCAL VACCINE Completed 09/13/2018, 09/13/2017, 05/14/2011 Care Teams Back Tender Relationship Specialty Start Date End Date Charbel Poe [address] [place] [address] PCP - General Internal Medicine 02/21/21 Shaw Cervantes MD [address] [place] [address] Specialist Cardiovascular Disease 02/18/21 Ryan Jenkins MD [address] [place] [address] Specialist Cardiology 02/18/21 Rosalva Stern PA-C [address] [place] [address] Specialist Cardiology 02/18/21
--- OUTSIDE RECORDS SUMMARY | 2024-08-14 17:22 | XMS_ITS | Encounter Summary ---
Author Organization [facility] Address [address] [place] [address] Care Team Providers Care Math Coach Name Role Phone Timmy-Azalia Recinos MD Primary Care Provider Unavailable Shaw Cervantes MD Unavailable [phone] Ryan Jenkins MD Unavailable [phone] Rosalva Stern PA-C Unavailable Charbel Poe Primary Care Provider Unavailabl e Encounter Details Date Type Department Care Team Description 11/18/2019 [facility] Medical Records [address] [place] [address] Jose Haile MD Social History Tobacco Use Types Packs/Day [...] on filedocumented in this encounter Care Teams Math Coach Relationship Specialty Start Date End Date Azalia Esposito MD PCP - General Internal Medicine 12/02/1502/20/21 Charbel Poe [address] [place] [address] PCP - General Internal Medicine 02/21/21 Shaw Cervantes MD [address] [facility] [address] [place], [place] [address] Specialist Cardiovascular Disease 02/18/21 Ryan Jenkins MD [address] [place] [address] Specialist Cardiology 02/18/21 Rosalva Stern PA-C [address] [place] [address] Specialist Cardiology 02/18/21 documented as of this encounter
--- OUTSIDE RECORDS SUMMARY | 2024-08-14 17:22 | XMS_ITS | Encounter Summary ---
Author Organization [facility] Address [address] [place] [address] Care Team Providers Care Drive In Teller Name Role Phone Shaw Cervantes MD Unavailable Ryan Jenkins MD Unavailable Rosalva Stern PA-C Unavailable Charbel Poe Primary Care Provider Unavailabl e Encounter Details Date Type Department Care Team Description 12/18/2022 Professional Fighter Report Medical Records [address] [place] [address] Agnieszka Zapata MD [address] [place] [address] [address] [place] [address] Social History Tobacco Use Types Packs/Day Years [...] on filedocumented in this encounter Care Teams Drive In Teller Relationship Specialty Start Date End Date Charbel Poe [address] [place] [address] PCP - General Internal Medicine 02/21/21 Shaw Cervantes MD 2 [facility] [address] [place] [address] Specialist Cardiovascular Disease 02/18/21 Ryan Jenkins MD [address] [place] [address] Specialist Cardiology 02/18/21 Rosalva Stern PA-C [address] [place] [address] Specialist Cardiology 02/18/21 documented as of this encounter
--- OUTSIDE RECORDS SUMMARY | 2024-08-14 17:22 | XMS_ITS | Encounter Summary ---
Author Organization [facility] Address [address] [place] [address] Care Team Providers Care Narrow Fabric Calenderer Name Role Phone Shaw Cervantes MD Unavailable Ryan Jenkins MD Unavailable [phone] Rosalva Stern PA-C Unavailable Charbel Poe Primary Care Provider Unavailabl e Encounter Details Date Type Department Care Team Description 06/18/2023 Orders Only [facility] Thoracic Surgery [place] 299 [facility] [address] [place] [address] Agnieszka Zapata MD 299 [facility] [address] [place] [address] Pulmonary nodules (Primary Dx) Social History Tobacco [...] field documented in this encounter Care Teams Narrow Fabric Calenderer Relationship Specialty Start Date End Date Charbel Poe 300 [facility] [address] [place] [address] PCP - General Internal Medicine 02/21/21 Shaw Cervantes MD [address] [place] [address] Specialist Cardiovascular Disease 02/18/21 Ryan Jenkins MD [address] [place] [address] Specialist Cardiology 02/18/21 Rosalva Stern PA-C [address] [place] [address] Specialist Cardiology 02/18/21 documented as of this encounter
--- OUTSIDE RECORDS SUMMARY | 2024-08-14 17:22 | XMS_ITS | Encounter Summary ---
Author Organization [facility] Address [address] [place] [address] Care Team Providers Care Rn Radiology Name Role Phone Azalia Esposito MD Primary Care Provider Unavailable Shaw Cervantes MD Unavailable [phone] Ryan Jenkins MD Unavailable Rosalva Stern PA-C Unavailable Charbel Poe Primary Care Provider Unavailabl e Reason for Visit * Reason Onset Date Comments [facility] Call 10/27/2019 Encounter Details Date Type Department Care Team Description 10/27/2019 Telephone Adult [address] [address] Azalia Esposito MD [facility]NA Call Social History [...] nurse. He will only listen to his census clerk. Does caller need an urgent call back? NO Was CONTACT Telephone # obtained above?:YES Fax #: documented in this encounter Plan of Treatment Not on file documented as of this encounter Visit Diagnoses Not on filedocumented in this encounter Care Teams Rn Radiology Relationship Specialty Start Date End Date [place]-Azalia Recinos MD PCP - General Internal Medicine 12/02/1502/20/21 Charbel Poe [address] [address] PCP - General Internal Medicine 02/21/21 Shaw Cervantes MD 2 Medical [facility] [address] [place] [address] Specialist Cardiovascular Disease 02/18/21 Ryan Jenkins MD 300 [facility] [address] [place] [address] Specialist Cardiology 02/18/21 Rosalva Stern PA-C [address] [address] Specialist Cardiology 02/18/21 documented as of this encounter
--- OUTSIDE RECORDS SUMMARY | 2024-08-14 17:22 | XMS_ITS | Encounter Summary ---
Author Organization [facility] Address [address] [place] [address] Care Team Providers Care Account Liaison Name Role Phone Timmy-Azalia Recinos MD Primary Care Provider Unavailable Shaw Cervantes MD Unavailable [phone] Ryan Jenkins MD Unavailable [phone] Rosalva Stern PA-C Unavailable Charbel Poe Primary Care Provider Unavailabl e Encounter Details Date Type Department Care Team Description 11/10/2019 [facility] Medical Records [address] [place] [address] Yasmeen Murrell Social History Tobacco Use Types Packs/Day Years [...] filedocumented in this encounter Care Teams Account Liaison Relationship Specialty Start Date End Date Azalia Esposito MD PCP - General Internal Medicine 12/02/1502/20/21 Charbel Poe [address] [place] [address] PCP - General Internal Medicine 02/21/21 Shaw Cervantes MD [address] [place] [address] [place], [place] [address] Specialist Cardiovascular Disease 02/18/21 Ryan Jenkins MD [address] [place] [address] Specialist Cardiology 02/18/21 Rosalva Stern PA-C [address] [place] [address] Specialist Cardiology 02/18/21 documented as of this encounter
--- OUTSIDE RECORDS SUMMARY | 2024-08-14 17:22 | XMS_ITS | Encounter Summary ---
Author Organization [facility] Address [address] [place] [address] Care Team Providers Care Finance Broker Name Role Phone Timmy-Azalia Recinos MD Primary Care Provider Unavailable Shaw Cervantes MD Unavailable [phone] Ryan Jenkins MD Unavailable [phone] Rosalva Stern PA-C Unavailable Charbel Poe Primary Care Provider Unavailabl e Encounter Details Date Type Department Care Team Description 10/05/2019 Manager Immunology Report Medical Records [address] [place] [address] Shaw Cervantes MD [address] [place] [address] Social History Tobacco Use Types Packs/Day Years [...] on filedocumented in this encounter Care Teams Finance Broker Relationship Specialty Start Date End Date Azalia Esposito MD PCP - General Internal Medicine 12/02/1502/20/21 Charbel Poe [address] [place] [address] PCP - General Internal Medicine 02/21/21 Shaw Cervantes MD [address] [place] [address] Specialist Cardiovascular Disease 02/18/21 Ryan Jenkins MD [address] [place] [address] Specialist Cardiology 02/18/21 Rosalva Stern PA-C [address] [place] [address] Specialist Cardiology 02/18/21 documented as of this encounter
--- OUTSIDE RECORDS SUMMARY | 2024-08-14 17:23 | XMS_ITS | Encounter Summary ---
Author Organization [facility] Address [address] [place] [address] Care Team Providers Care Housecleaner Name Role Phone Azalia Esposito MD Primary Care Provider Unavailable Shaw Cervantes MD Unavailable [phone] Ryan Jenkins MD Unavailable [phone] Rosalva Stern PA-C Unavailable Charbel Poe Primary Care Provider Unavailabl e Reason for Visit * Reason Onset Date Comments Faxed Order 10/10/2019 Encounter Details Date Type Department Care Team Description 10/10/2019 Telephone Adult [address] [id number] Azalia Esposito MD Faxed Order Social History [...] review, sign, date, and fax back to [phone]. Order #[id number] * Telephone Encounter - Joanna Moore - 10/13/2019 11:39 AM EDT Faxed order received from [facility]ox[facility] Lepe. Please review, sign, date, and fax back to [phone]. Order #[id number] * Telephone Encounter - Natalia Almeida - 10/10/2019 9:53 AM EDT Orders from Roxanna Lepe to be signed and faxed back to [phone] . documented in this encounter Plan of Treatment Not on file documented as of this encounter Visit Diagnoses Not on filedocumented in this encounter Care Teams Housecleaner Relationship Specialty Start Date End Date Viola-Azalia Recinos MD PCP - General Internal Medicine 12/02/1502/20/21 Charbel Poe 300 [facility] [address] [place] [address] PCP - General Internal Medicine 02/21/21 Shaw Cervantes MD [address] [facility] [address] [place] [address] Specialist Cardiovascular Disease 02/18/21 Ryan Jenkins MD 300 [facility] [address] [place] [address] Specialist Cardiology 02/18/21 Rosalva Stern PA-C 300 [facility] [address] [place] [address] Specialist Cardiology 02/18/21 documented as of this encounter
[2024-08-14] MEDS: Pantoprazole Sodium 40 MG/10 ML VIAL 80 MG IVPUSH (18:10)
[2024-08-14] MEDS: Morphine Sulfate 2 MG/ML CARTRIDGE IVPUSH (21:06)
[2024-08-15] VITALS (20 sets, daily range): BP systolic 123–152; BP diastolic 52–84; PULSE 86–106; RESP 16–24; TEMP 36.4–37.7; O2SAT 90–105
[2024-08-15] MEDS: methylPREDNISolone Sod Succ 40 MG/ML VIAL IVPUSH ×2 (03:01→14:50)
[2024-08-15 05:00] LABS: Mean Corpuscular HGB Conc 33.2 g/dl (31.0-36.0); Mean Corpuscular Hemoglobin 29.3 pg (27.0-33.0); Mean Corpuscular Volume 88.4 fL (80.0-98.0); Mean Platelet Volume 10.3 fL (9.4-12.4); NRBC Pct Auto 0.1 /100WBC (0.0-0.2); Platelet Count 246 X10*3/uL (160-400); Red Blood Count 2.25 X10*6/uL (4.60-5.80); White Blood Count 20.2 X10*3/uL (4.8-10.8)
[2024-08-15 05:09] LABS: Hematocrit 19.9 % (42.0-52.0); Hemoglobin 6.6 g/dl (14.0-18.0)
[2024-08-15 05:15] LABS: Anion Gap 13 (12-20); Blood Urea Nitrogen 56 mg/dL (9-16); Calcium 8.3 mg/dL (8.4-10.2); Carbon Dioxide 31 mmol/L (22-29); Chloride 102 mmol/L (96-108); Creatinine Clr Calc Pharmacy 92.3; Estimated Glomerular Filt Rate > 60; Glucose Random 150 mg/dL (60-115); Potassium 5.1 mmol/L (3.3-5.1); Sodium 141 mmol/L (135-145)
[2024-08-15] MEDS: Pantoprazole Sodium 40 MG/10 ML VIAL IVPUSH ×2 (05:50→16:53)
--- NOTE | 2024-08-15 07:25 | PC.NURSE ---
min assist to commode. moderate tarry black stool. see note with photo. pt back in bed, sats maintained with exertion. call kumar in reach, plan of care ongoing
--- NOTE | 2024-08-15 08:12 | PM.GICN ---
History of Present Illness Data of Consult Service Date: 08/15/24 Requesting physician: Francisca Almeida Primary Care Provider: None Physician HPI Reason for consult: UGIB This is a 74-year-old gentleman past medical history of hypertension, COPD with chronic hypoxic respiratory failure on 0.5 L O2 at baseline, history of atrial fibrillation status post ablation 2019 remains on Coumadin for anticoagulation, complete heart block status post permanent pacemaker placement, nonischemic cardiomyopathy, who presented to the hospital for worsening shortness of breath context of black stools for 4 days. Patient reports loss of appetite and abdominal soreness but otherwise no nausea, vomiting, fevers, chills. No recent NSAID use. Started having loose sticky black stools 4 days ago. Since then, has been having progressive shortness of breath. No new cough. In the emergency room, he was found to be tachycardic with mildly low blood pressures. Initial labs with drop of hemoglobin from 11.6-6.1 with elevated BUN to 59 and normal creatinine. Initial INR was 8.8 and is 9.2 this morning. He has received total of 3 units of PRBCs since arrival to the hospital. Patient reports most recent melanotic bowel movement was earlier today prior to my assessment. Recent endoscopy: 2020 (Dr. Tian): Erosive esophagitis with ulceration. Gastritis. Colonoscopy: X2 tubular adenoma. Recommendation for repeat colonoscopy in 3-5 years. 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 Mother No problems noted. Brother Esophageal cancer Surgical History Surgical History (Updated 08/14/24 @ 16:11 by Francisca Almeida NP) S/P cardiac catheterization History of cardiac radiofrequency ablation History of colonoscopy History of permanent cardiac pacemaker placement (~06/2020) Social History Social History Household Members: Children Housing: [facility] Do you presently have visiting nurse or other home services: Yes ([facility]) Alcohol intake: current Alcohol intake frequency: other Comment: no telesitter available at this time Patient Tobacco Use Status: Former Tobacco user Tobacco use type: Cigarette Years Smoked: (onset 18yo, 1-1.5ppd x 53yrs, 65pyh - now 1cig/day) Smoked in Last 30 Days: No e-Cigarette/Vaping Use: Never Used Second Hand Smoke Exposure: Yes Use of substances other than those prescribed or required for medical reasons: No Advance Directives: Yes Advance Directives on File: Yes Advance Directives Date on File: 07/01/20 Do you have a plan to hurt others: No Plan Nutrition Risks: Poor intake 0-25% >4 days service: No Current occupational status: retired Current occupation: RETIRED Current occupational exposures/hazards: No Cognitive needs: Yes (walker) Hearing needs: No Vision needs: No Meds Allergies Allergy/AdvReac Type Severity Reaction Status Date / Time head and shoulders shampoo AdvReac Severe burn Uncoded 08/14/24 13:41 Active Medications: Current Medications Acetaminophen (Acetaminophen 325 Mg Tablet) 650 mg PO Q6H PRN PRN Reason: Pain, Mild 1-3,fever,headache Albuterol Sulfate (Albuterol Sulfate 90 Mcg 8 Gm Inhaler) 2 puff INHALE Q6H PRN PRN Reason: Shortness of Breath Albuterol/Ipratropium (Albuterol/Iprat 2.5/0.5mg 3 Ml Ampul.Neb) 3 ml INHALE RQID [facility] Last Admin: 08/14/24 19:49 Dose: 3 ml Ceftriaxone Sodium (Ceftriaxone Sodium 1 Gm Vial) 1 gm IVPUSH Q24H [facility] Last Admin: 08/14/24 16:58 Dose: 1 gm Fluticasone/Vilanterol (Fluticasone/Vilanterol 100/25 Blst.W.Dev) 1 puff INHALE RDAILY [facility] Azithromycin 500 mg/ Sodium (Chloride) 250 mls @ 125 mls/hr IV Q24H [facility] Last Infusion: 08/14/24 19:18 Dose: Infused Methylprednisolone Sodium Succinate (Methylprednisolone Sod Succ 40 Mg/Ml Vial) 40 mg IVPUSH Q12H [facility] Last Admin: 08/15/24 03:01 Dose: 40 mg Metoprolol Succinate (Metoprolol Succinate Er 100 Mg Tab.Er.24h) 100 mg PO DAILY [facility]; Protocol Multivitamins/Vitamin C (Multivitamin Tablet) 1 tab PO DAILY [facility] Ondansetron HCl (Ondansetron Hcl 4 Mg/2 Ml Vial) 4 mg IVPUSH Q8H PRN PRN Reason: Nausea and Vomiting Pantoprazole Sodium (Pantoprazole Sodium 40 Mg/10 Ml Vial) 40 mg IVPUSH BID@0630,1630 [facility] Last Admin: 08/15/24 05:50 Dose: 40 mg Home Medications ?Medication ?Instructions ?Recorded ?Confirmed ?Last Taken ?Type multivitamin (Daily Multi-Vitamin 1 tab PO DAILY 06/05/20 08/14/24 08/13/24 History tablet) Oxygen Home Use 03/10/21 07/25/24 Unknown History albuterol sulfate 90 mcg/actuation 2 puff inhalation Q6H PRN SOB 08/14/24 08/14/24 Unknown History aerosol inhaler warfarin 5 mg tablet 2.5 mg PO TUTH 08/14/24 08/14/24 Unknown History warfarin 5 mg tablet 5 mg PO SUMOWEFRSA 08/14/24 08/14/24 Unknown History Physical Exam Vital Signs: Vital Signs: Last Vital Signs Temp 97.6 F 08/15/24 04:45 Pulse 98 08/15/24 04:45 Resp 24 H 08/15/24 04:45 BP 128/56 L 08/15/24 04:45 Pulse Ox 98 08/15/24 04:45 O2 Del Method Room Air 08/15/24 04:45 O2 Flow Rate 3 08/15/24 00:24 Oxygen Flow Rate 2 08/14/24 13:35 BMI result Body Mass Index 30.4 Elderly gent, pale appearing NC in place Nonicteric HR V-paced at 93 bpm Abdomen soft, nondistended, nontender Alert and oriented x3, able to provide complete history Results Labs 08/15/24 04:46 08/15/24 04:46 Labs: Short CBC 08/14/24 08/15/24 Range/Units 13:54 04:46 WBC 17.6 H 20.2 H (4.8-10.8) X10*3/uL Hgb 6.1 L* D 6.6 L* (14.0-18.0) g/dl Hct 20.5 L* D 19.9 L* (42.0-52.0) % Plt Count 320 D 246 (160-400) X10*3/uL BMP 08/14/24 08/15/24 13:54 04:46 Sodium 141 141 Potassium 5.3 H D 5.1 Chloride 98 102 Carbon Dioxide 36 H 31 H BUN 59 H 56 H Creatinine 0.79 0.79 Calcium 8.6 8.3 L Liver Function 08/14/24 Range/Units 13:54 Total Bilirubin 0.1 (0.0-1.0) mg/dL Direct Bilirubin < 0.2 (0.0-0.5) mg/dL AST 21 (5-37) U/L ALT 15 (0-40) U/L Alkaline Phosphatase 60 (39-117) U/L Albumin 3.1 L (3.5-5.0) g/dL Assessment and Plan (1) Anemia: Status: Acute (2) Elevated INR: Status: Acute (3) COPD exacerbation: Status: Acute (4) Respiratory failure with hypoxia: Status: Acute (5) Current use of anticoagulant therapy: Status: Acute (6) Paroxysmal atrial fibrillation: Status: Acute Plan Overall presentation consistent with acute on chronic anemia secondary to likely upper GI bleed. Differentials include esophagitis, gastritis, PUD with bleeding exacerbated by use of anticoagulation and supratherapeutic INR of 9. Plan: -maintain x2 IV access at all times -PRBC transfusion for hemoglobin <7 -vitamin K IV 10 mg today. Recheck INR tomorrow -will proceed with EGD w or once INR <2 -OK for clear liquids today -IV protonix 40mg BID -Consider reviewing indication for coumadin with cardiology as 0% afib burden documented recently Thank you for allowing me to participate in his care. Please do not hesitate to reach out for questions or concerns. Procedures Date of Service Date of Service: 08/15/24
[2024-08-15] MEDS: Albuterol/Iprat 2.5/0.5MG 3 ML AMPUL.NEB INHALE ×4 (08:30→20:00)
[2024-08-15] MEDS: Multivitamin TABLET 1 TAB PO (09:05)
[2024-08-15] MEDS: Metoprolol Succinate ER 100 MG TAB.ER.24H PO (09:05)
[2024-08-15] MEDS: Fluticasone/Vilanterol 100/25 BLST.W.DEV 1 PUFF INHALE (09:58)
--- NOTE | 2024-08-15 10:41 | P.PNIM_ITS ---
Subjective Subjective Date of Service: 08/15/24 Review of Systems Follow up anemia and PNA feeling better but still having dark stools Physical Exam 2 Vital Signs: Vital Signs: Last Vital Signs Temp 97.6 F 08/15/24 10:31 Pulse 93 08/15/24 10:31 Resp 19 08/15/24 10:31 BP 134/74 08/15/24 10:31 Pulse Ox 95 08/15/24 10:26 O2 Del Method Nasal Cannula 08/15/24 10:26 O2 Flow Rate 2.5 08/15/24 10:26 Oxygen Flow Rate 2 08/14/24 13:35 BMI result Body Mass Index 30.4 Appearing in no acute distress lung sounds are clear to auscultation heart regular rate rhythm, clear S1, S2 positive bowel sounds, abdomen is soft, nontender neuro patient is alert x3, no focal deficits Objective Data Active Medications Acetaminophen (Acetaminophen 325 Mg Tablet) 650 mg PO Q6H PRN PRN Reason: Pain, Mild 1-3,fever,headache Albuterol Sulfate (Albuterol Sulfate 90 Mcg 8 Gm Inhaler) 2 puff INHALE Q6H PRN PRN Reason: Shortness of Breath Albuterol/Ipratropium (Albuterol/Iprat 2.5/0.5mg 3 Ml Ampul.Neb) 3 ml INHALE RQID [facility] Last Admin: 08/15/24 08:30 Dose: 3 ml Documented By: POLA Ceftriaxone Sodium (Ceftriaxone Sodium 1 Gm Vial) 1 gm IVPUSH Q24H [facility] Last Admin: 08/14/24 16:58 Dose: 1 gm Documented By: ANGY Fluticasone/Vilanterol (Fluticasone/Vilanterol 100/25 Blst.W.Dev) 1 puff INHALE RDAILY [facility] Last Admin: 08/15/24 09:58 Dose: 1 puff Documented By: GAVIN Azithromycin 500 mg/ Sodium (Chloride) 250 mls @ 125 mls/hr IV Q24H [facility] Last Infusion: 08/14/24 19:18 Dose: Infused Documented By: ANGY Methylprednisolone Sodium Succinate (Methylprednisolone Sod Succ 40 Mg/Ml Vial) 40 mg IVPUSH Q12H [facility] Last Admin: 08/15/24 03:01 Dose: 40 mg Documented By: JANN Metoprolol Succinate (Metoprolol Succinate Er 100 Mg Tab.Er.24h) 100 mg PO DAILY [facility]; Protocol Last Admin: 08/15/24 09:05 Dose: 100 mg Documented By: GAVIN Multivitamins/Vitamin C (Multivitamin Tablet) 1 tab PO DAILY [facility] Last Admin: 08/15/24 09:05 Dose: 1 tab Documented By: GAVIN Ondansetron HCl (Ondansetron Hcl 4 Mg/2 Ml Vial) 4 mg IVPUSH Q8H PRN PRN Reason: Nausea and Vomiting Pantoprazole Sodium (Pantoprazole Sodium 40 Mg/10 Ml Vial) 40 mg IVPUSH BID@0630,1630 [facility] Last Admin: 08/15/24 05:50 Dose: 40 mg Documented By: JANN Labs 08/15/24 04:46 08/15/24 04:46 Labs: Laboratory Results - last 24 hr 08/14/24 08/14/24 08/14/24 13:40 13:52 13:54 MCV 91.9 MCH 27.4 MCHC 29.8 L RDW 13.7 Plt Count 320 D MPV 10.1 Immature Gran % (Auto) 1.9 H Neut % (Auto) 77.5 H Lymph % (Auto) 12.[address] [facility] % (Auto) 6.4 Eos % (Auto) 1.1 Baso % (Auto) 0.7 Lymph # (Auto) 2.2 [facility] # (Auto) 1.1 Eos # (Auto) 0.2 Baso # (Auto) 0.1 Abs Immat Gran (auto) 0.34 H Absolute Neuts (auto) 13.7 H Absolute Nucleated RBC 0.000 Nucleated RBC % (auto) 0.0 PT 102.5 H INR 8.8 H* D APTT 79.3 H* VBG pH VBG pCO2 VBG pO2 VBG HCO3 VBG O2 Saturation VBG Base Excess Anion Gap 12 Estim Creat Clear Calc 92.3 Estimated GFR > 60 POC Glucose 120 H Random Glucose 131 H Lactic Acid Calcium 8.6 Total Bilirubin 0.1 Direct Bilirubin < 0.2 AST 21 ALT 15 Alkaline Phosphatase 60 B-Natriuretic Peptide 36 Total Protein 6.5 Albumin 3.1 L Lipase 16 Influenza Type A (PCR) NEGATIVE Influenza Type B (PCR) NEGATIVE RSV RNA Qual (PCR) NEGATIVE SARS-CoV-2 RNA (RT-PCR) NEGATIVE Blood Type Antibody Screen Crossmatch 08/14/24 08/14/24 08/14/24 13:59 14:13 15:29 MCV MCH MCHC RDW Plt Count MPV Immature Gran % (Auto) Neut % (Auto) Lymph % (Auto) [facility] % (Auto) Eos % (Auto) Baso % (Auto) Lymph # (Auto) [facility] # (Auto) Eos # (Auto) Baso # (Auto) Abs Immat Gran (auto) Absolute Neuts (auto) Absolute Nucleated RBC Nucleated RBC % (auto) PT INR APTT VBG pH 7.52 H VBG pCO2 53 VBG pO2 29 VBG HCO3 44 H VBG O2 Saturation TNP VBG Base Excess 19.6 Anion Gap Estim Creat Clear Calc Estimated GFR POC Glucose Random Glucose Lactic Acid 2.0 Calcium Total Bilirubin Direct Bilirubin AST ALT Alkaline Phosphatase B-Natriuretic Peptide Total Protein Albumin Lipase Influenza Type A (PCR) Influenza Type B (PCR) RSV RNA Qual (PCR) SARS-CoV-2 RNA (RT-PCR) Blood Type A Positive Antibody Screen NEGATIVE Crossmatch See Detail 08/14/24 08/15/24 16:11 04:46 MCV 88.4 MCH 29.3 MCHC 33.2 RDW 14.0 Plt Count 246 MPV 10.3 Immature Gran % (Auto) Neut % (Auto) Lymph % (Auto) [facility] % (Auto) Eos % (Auto) Baso % (Auto) Lymph # (Auto) [facility] # (Auto) Eos # (Auto) Baso # (Auto) Abs Immat Gran (auto) Absolute Neuts (auto) Absolute Nucleated RBC 0.020 H Nucleated RBC % (auto) 0.1 PT 107.5 H INR 9.2 H* APTT VBG pH VBG pCO2 VBG pO2 VBG HCO3 VBG O2 Saturation VBG Base Excess Anion Gap 13 Estim Creat Clear Calc 92.3 Estimated GFR > 60 POC Glucose Random Glucose 150 H Lactic Acid Calcium 8.3 L Total Bilirubin Direct Bilirubin AST ALT Alkaline Phosphatase B-Natriuretic Peptide Total Protein Albumin Lipase Influenza Type A (PCR) Influenza Type B (PCR) RSV RNA Qual (PCR) SARS-CoV-2 RNA (RT-PCR) Blood Type Antibody Screen Crossmatch Assessment and Plan (1) Acute and chronic respiratory failure with hypoxia: Status: Inactive Plan 74 year old man admitted with severe anemia and COPD exacerbation and pneumonia Sepsis. Sepsis resolved Tachycardia, tachypnea, leukocytosis, normal lactic acid treat with abx follow blood cx Acute on chronic hypoxic respiratory failure secondary to COPD exacerbation and CAP consolidation noted on CXR continue Rocephin and azithromycin Scheduled Albuterol, solumedrol supplemental oxygen to keep sats >90% Flu, RSV, covid neg Acute blood loss anemia 6.1/20.5 repeat 6.6/19.9 2 units PRBC ordered in the ED and 2 more units ordered today GI consultation> Plan for EGD check HH post transfusion Supratherapeutic INR 9.2 s/p vitamin K in the ED, will give another dose today as he is still having black stools Hold Warfarin Hyperkalemia Lokelma follow Paroxysmal atrial fibrillation. RVR resolved Continue beta-fior Hold warfarin due to GI bleeding Hypertension Soft blood pressures Hold any antihypertensive medications Ischemic cardiomyopathy Status post pacemaker DVT prophylaxis with SCD boots due to anemia and GI bleed Full code Quality Stroke Does the patient have a stroke diagnosis?: No VTE Prior VTE?: No VTE Risk Level:: Medical - moderate - high VTE Device Contraindication: N/A - Device Ordered VTE Drug Contraindication: Treatment Not Indicated
--- NOTE | 2024-08-15 13:55 | MHC.CM.PN ---
pt lives alone has a brother that is supportive he is on home 02 and has own ride home has not had any servies prior to admission
[2024-08-15] MEDS: cefTRIAXone sodium 1 GM VIAL IVPUSH (16:53)
[2024-08-15] MEDS: Azithromycin 500 MG in 0.9 % Sodium Chloride 250 ML 125 MG IV (16:53)
[2024-08-16] VITALS (27 sets, daily range): BP systolic 117–149; BP diastolic 42–78; PULSE 72–96; RESP 14–20; TEMP 36.1–37; O2SAT 90–100
[2024-08-16] MEDS: methylPREDNISolone Sod Succ 40 MG/ML VIAL IVPUSH ×2 (02:16→15:28)
[2024-08-16] MEDS: Multivitamin TABLET 1 TAB PO (07:44)
[2024-08-16] MEDS: Pantoprazole Sodium 40 MG/10 ML VIAL IVPUSH ×2 (07:44→15:53)
[2024-08-16] MEDS: Metoprolol Succinate ER 100 MG TAB.ER.24H PO (07:44)
[2024-08-16] MEDS: Albuterol/Iprat 2.5/0.5MG 3 ML AMPUL.NEB INHALE ×3 (07:45→21:01)
[2024-08-16] MEDS: Fluticasone/Vilanterol 100/25 BLST.W.DEV 1 PUFF INHALE (07:45)
[2024-08-16 09:22] LABS: MANUAL DIFF FLAG NO
[2024-08-16 09:36] LABS: Basophils Percent Auto 0.1 % (0-2); Hematocrit 25.8 % (42.0-52.0); Hemoglobin 8.4 g/dl (14.0-18.0); Imm Gran Pct Auto 4.8 % (0.0-0.4); Lymphocytes Percent Auto 9.7 % (20-40); Mean Corpuscular HGB Conc 32.6 g/dl (31.0-36.0); Mean Corpuscular Hemoglobin 29.9 pg (27.0-33.0); Mean Corpuscular Volume 91.8 fL (80.0-98.0); Mean Platelet Volume 10.5 fL (9.4-12.4); Monocytes Absolute Auto 0.7 X10*3/uL (0.1-1.2); Monocytes Percent Auto 3.4 % (2-11); NRBC Pct Auto 0.2 /100WBC (0.0-0.2); Platelet Count 242 X10*3/uL (160-400); Red Blood Count 2.81 X10*6/uL (4.60-5.80); Red Cell Distribution Width 14.6 % (11.0-16.0); White Blood Count 20.7 X10*3/uL (4.8-10.8)
[2024-08-16 09:42] LABS: Anion Gap 12 (12-20); Blood Urea Nitrogen 34 mg/dL (9-16); Calcium 8.6 mg/dL (8.4-10.2); Carbon Dioxide 33 mmol/L (22-29); Chloride 99 mmol/L (96-108); Creatinine Clr Calc Pharmacy 93.5; Estimated Glomerular Filt Rate > 60; Glucose Random 145 mg/dL (60-115); Sodium 139 mmol/L (135-145)
--- NOTE | 2024-08-16 10:29 | P.PNIM_ITS ---
Subjective Subjective Date of Service: 08/17/24 Review of Systems Follow up anemia and PNA feeling better but still having dark stools Physical Exam 2 Vital Signs: Vital Signs: Last Vital Signs Temp 97.2 F 08/17/24 03:01 Pulse 78 08/17/24 03:01 Resp 20 08/17/24 03:01 BP 129/62 08/17/24 03:01 Pulse Ox 93 08/17/24 03:01 O2 Del Method Nasal Cannula 08/17/24 03:01 O2 Flow Rate 2.5 08/17/24 03:01 Oxygen Flow Rate 2 08/14/24 13:35 BMI result Body Mass Index 30.4 Objective Data Active Medications Acetaminophen (Acetaminophen 325 Mg Tablet) 650 mg PO Q6H PRN PRN Reason: Pain, Mild 1-3,fever,headache Albuterol Sulfate (Albuterol Sulfate 90 Mcg 8 Gm Inhaler) 2 puff INHALE Q6H PRN PRN Reason: Shortness of Breath Albuterol/Ipratropium (Albuterol/Iprat 2.5/0.5mg 3 Ml Ampul.Neb) 3 ml INHALE RQID [facility] Last Admin: 08/16/24 21:01 Dose: 3 ml Documented By: LEVAR Ceftriaxone Sodium (Ceftriaxone Sodium 1 Gm Vial) 1 gm IVPUSH Q24H [facility] Last Admin: 08/16/24 15:30 Dose: 1 gm Documented By: LULA Fluticasone/Vilanterol (Fluticasone/Vilanterol 100/25 Blst.W.Dev) 1 puff INHALE RDAILY [facility] Last Admin: 08/16/24 07:45 Dose: 1 puff Documented By: CHAVA Azithromycin 500 mg/ Sodium (Chloride) 250 mls @ 125 mls/hr IV Q24H [facility] Last Infusion: 08/16/24 17:58 Dose: Infused Documented By: LULA Methylprednisolone Sodium Succinate (Methylprednisolone Sod Succ 40 Mg/Ml Vial) 40 mg IVPUSH Q12H [facility] Last Admin: 08/17/24 03:03 Dose: 40 mg Documented By: CHRIS Metoprolol Succinate (Metoprolol Succinate Er 100 Mg Tab.Er.24h) 100 mg PO DAILY [facility]; Protocol Last Admin: 08/16/24 07:44 Dose: 100 mg Documented By: CHAVA Multivitamins/Vitamin C (Multivitamin Tablet) 1 tab PO DAILY [facility] Last Admin: 08/16/24 07:44 Dose: 1 tab Documented By: CHAVA Ondansetron HCl (Ondansetron Hcl 4 Mg/2 Ml Vial) 4 mg IVPUSH Q8H PRN PRN Reason: Nausea and Vomiting Pantoprazole Sodium (Pantoprazole Sodium 40 Mg/10 Ml Vial) 40 mg IVPUSH BID@0630,1630 [facility] Last Admin: 08/17/24 06:22 Dose: 40 mg Documented By: CHRIS Labs 08/17/24 05:47 08/17/24 05:48 Labs: Laboratory Results - last 24 hr 08/16/24 08/17/24 08/17/24 09:15 05:47 05:48 MCV 91.8 92.5 MCH 29.9 29.6 MCHC 32.6 32.0 RDW 14.6 14.5 Plt Count 242 232 MPV 10.5 11.0 Immature Gran % (Auto) 4.8 H Cancelled Neut % (Auto) 82.0 H Cancelled Lymph % (Auto) 9.7 L Cancelled [place] % (Auto) 3.4 Cancelled Eos % (Auto) 0.0 Cancelled Baso % (Auto) 0.1 Cancelled Lymph # (Auto) 2.0 Cancelled [place] # (Auto) 0.7 Cancelled Eos # (Auto) 0.0 Cancelled Baso # (Auto) 0.0 Cancelled Abs Immat Gran (auto) 1.00 H Cancelled Absolute Neuts (auto) 17.0 H Cancelled Absolute Nucleated RBC 0.040 H 0.060 H Nucleated RBC % (auto) 0.2 0.3 H PT 13.3 H INR 1.1 Anion Gap 12 10 L Estim Creat Clear Calc 93.5 91.2 Estimated GFR > 60 > 60 Random Glucose 145 H 103 Calcium 8.6 8.7 Microbiology Microbiology Results: Microbiology 08/14/24 16:51 Blood Culture - Preliminary Blood - Venous No growth after 48 hours. 08/14/24 16:51 Blood Culture - Preliminary Blood - Venous No growth after 48 hours. Assessment and Plan (1) COPD exacerbation: Status: Acute (2) Elevated INR: Status: Acute (3) Acute on chronic blood loss anemia: Status: Acute (4) GI bleed: Status: Acute Plan 74 year old man admitted with severe anemia and COPD exacerbation and pneumonia Acute on chronic hypoxic respiratory failure secondary to COPD exacerbation and Sepsis from CAP consolidation noted on CXR Pending cultures continue Rocephin and azithromycin Scheduled Albuterol, solumedrol supplemental oxygen to keep sats >90% Acute blood loss anemia Hb improved to 8 after transfusion total 4 units transfusion GI consultation, Plan for EGD check HH post transfusion Supratherapeutic INR improved to 1 s/p vitamin K Hold Warfarin Hyperkalemia Lokelma follow Paroxysmal atrial fibrillation. RVR resolved Continue beta-fior Hold warfarin due to GI bleeding Hypertension Soft blood pressures Hold any antihypertensive medications Ischemic cardiomyopathy Status post pacemaker DVT prophylaxis with SCD boots due to anemia and GI bleed Full code Quality Stroke Does the patient have a stroke diagnosis?: No VTE Prior VTE?: No VTE Risk Level:: Medical - moderate - high VTE Device Contraindication: N/A - Device Ordered VTE Drug Contraindication: Treatment Not Indicated
--- NOTE | 2024-08-16 10:43 | HO.ANESPROP2 ---
[facility] Active Problems Active Problems: All Active Problems COPD exacerbation (Acute) Anemia (Acute) Elevated INR (Acute) Hand dermatitis (Acute) Respiratory failure with hypoxia (Acute) Chronic bronchitis (Acute) Current use of anticoagulant therapy (Acute) Skin pustule (Acute) Multiple pulmonary nodules (Acute) Personal history of nicotine dependence (Acute) Complete heart block (Acute) Paroxysmal atrial fibrillation (Acute) Chronic systolic (congestive) heart failure (Acute) Sinus tachycardia (Acute) Hypertension (Acute) Peripheral vascular disease (Acute) Exercise hypoxemia (Acute) Iron (Fe) deficiency anemia (Acute) COPD (chronic obstructive pulmonary disease) (Acute) Past Medical History Medical History Pacemaker (~06/2020) Nonischemic cardiomyopathy Hand dermatitis Respiratory failure with hypoxia Chronic bronchitis Personal history of nicotine dependence Hypertension 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 Mother No problems noted. Brother Esophageal cancer Family history of problems with anesthesia: No Surgical History Surgical History S/P cardiac catheterization History of cardiac radiofrequency ablation History of colonoscopy History of permanent cardiac pacemaker placement (~06/2020) History of Problems with Anesthesia: No Social History Social History Household Members: Children Housing: Condominium Do you presently have visiting nurse or other home services: Yes ([facility]) Alcohol intake: current Alcohol intake frequency: other Comment: no telesitter available at this time Patient Tobacco Use Status: Former Tobacco user Tobacco use type: Cigarette Years Smoked: (onset 18yo, 1-1.5ppd x 53yrs, 65pyh - now 1cig/day) Smoked in Last 30 Days: No e-Cigarette/Vaping Use: Never Used Second Hand Smoke Exposure: Yes Use of substances other than those prescribed or required for medical reasons: No Advance Directives: Yes Advance Directives on File: Yes Advance Directives Date on File: 07/01/20 Do you have a plan to hurt others: No Plan Nutrition Risks: Poor intake 0-25% >4 days service: No Current occupational status: retired Current occupation: RETIRED Current occupational exposures/hazards: No Cognitive needs: Yes (walker) Hearing needs: No Vision needs: No Meds Allergies Allergy/AdvReac Type Severity Reaction Status Date / Time head and shoulders shampoo AdvReac Severe burn Uncoded 08/14/24 13:41 Active Medications: Current Medications Acetaminophen (Acetaminophen 325 Mg Tablet) 650 mg PO Q6H PRN PRN Reason: Pain, Mild 1-3,fever,headache Albuterol Sulfate (Albuterol Sulfate 90 Mcg 8 Gm Inhaler) 2 puff INHALE Q6H PRN PRN Reason: Shortness of Breath Albuterol/Ipratropium (Albuterol/Iprat 2.5/0.5mg 3 Ml Ampul.Neb) 3 ml INHALE RQID [facility] Last Admin: 08/16/24 07:45 Dose: 3 ml Ceftriaxone Sodium (Ceftriaxone Sodium 1 Gm Vial) 1 gm IVPUSH Q24H [facility] Last Admin: 08/15/24 16:53 Dose: 1 gm Fluticasone/Vilanterol (Fluticasone/Vilanterol 100/25 Blst.W.Dev) 1 puff INHALE RDAILY [facility] Last Admin: 08/16/24 07:45 Dose: 1 puff Azithromycin 500 mg/ Sodium (Chloride) 250 mls @ 125 mls/hr IV Q24H [facility] Last Infusion: 08/15/24 18:53 Dose: Infused Methylprednisolone Sodium Succinate (Methylprednisolone Sod Succ 40 Mg/Ml Vial) 40 mg IVPUSH Q12H [facility] Last Admin: 08/16/24 02:16 Dose: 40 mg Metoprolol Succinate (Metoprolol Succinate Er 100 Mg Tab.Er.24h) 100 mg PO DAILY [facility]; Protocol Last Admin: 08/16/24 07:44 Dose: 100 mg Multivitamins/Vitamin C (Multivitamin Tablet) 1 tab PO DAILY [facility] Last Admin: 08/16/24 07:44 Dose: 1 tab Ondansetron HCl (Ondansetron Hcl 4 Mg/2 Ml Vial) 4 mg IVPUSH Q8H PRN PRN Reason: Nausea and Vomiting Pantoprazole Sodium (Pantoprazole Sodium 40 Mg/10 Ml Vial) 40 mg IVPUSH BID@0630,1630 [facility] Last Admin: 08/16/24 07:44 Dose: 40 mg Home Medications ?Medication ?Instructions ?Recorded ?Confirmed ?Last Taken ?Type multivitamin (Daily Multi-Vitamin 1 tab PO DAILY 06/05/20 08/14/24 08/13/24 History tablet) Oxygen Home Use 03/10/21 07/25/24 Unknown History albuterol sulfate 90 mcg/actuation 2 puff inhalation Q6H PRN SOB 08/14/24 08/14/24 Unknown History aerosol inhaler warfarin 5 mg tablet 2.5 mg PO TUTH 08/14/24 08/14/24 Unknown History warfarin 5 mg tablet 5 mg PO SUMOWEFRSA 08/14/24 08/14/24 Unknown History Exam Height,Weight and Vital Signs: Height 5 ft 8 in Weight 90.6 kg Last Vital Signs Temp 98.6 F 08/16/24 00:01 Pulse 91 08/16/24 07:46 Resp 19 08/16/24 07:46 BP 120/55 L 08/16/24 07:44 Pulse Ox 92 08/16/24 07:12 O2 Del Method Nasal Cannula 08/16/24 07:12 O2 Flow Rate 2 08/16/24 07:12 Oxygen Flow Rate 2 08/14/24 13:35 Pertinent Lab Results Pertinent Lab Results: qyqLaboratory Tests 08/14/24 08/14/24 08/14/24 13:40 13:52 13:54 WBC 17.6 H RBC 2.23 L D Hgb 6.1 L* D Hct 20.5 L* D MCV 91.9 MCH 27.4 MCHC 29.8 L RDW 13.7 Plt Count 320 D MPV 10.1 Immature Gran % (Auto) 1.9 H Neut % (Auto) 77.5 H Lymph % (Auto) 12.4 L [place] % (Auto) 6.4 Eos % (Auto) 1.1 Baso % (Auto) 0.7 Lymph # (Auto) 2.2 [place] # (Auto) 1.1 Eos # (Auto) 0.2 Baso # (Auto) 0.1 Abs Immat Gran (auto) 0.34 H Absolute Neuts (auto) 13.7 H Absolute Nucleated RBC 0.000 Nucleated RBC % (auto) 0.0 Smear Path Review SEE NOTE PT 102.5 H INR 8.8 H* D APTT 79.3 H* VBG pH VBG pCO2 VBG pO2 VBG HCO3 VBG O2 Saturation VBG Base Excess Sodium 141 Potassium 5.3 H D Chloride 98 Carbon Dioxide 36 H Anion Gap 12 BUN 59 H Creatinine 0.79 Estim Creat Clear Calc 92.3 Estimated GFR > 60 POC Glucose 120 H Random Glucose 131 H Lactic Acid Calcium 8.6 Total Bilirubin 0.1 Direct Bilirubin < 0.2 AST 21 ALT 15 Alkaline Phosphatase 60 Troponin I High Sens 7.7 B-Natriuretic Peptide 36 Total Protein 6.5 Albumin 3.1 L Lipase 16 Influenza Type A (PCR) NEGATIVE Influenza Type B (PCR) NEGATIVE RSV RNA Qual (PCR) NEGATIVE SARS-CoV-2 RNA (RT-PCR) NEGATIVE Blood Type Antibody Screen Crossmatch 08/14/24 08/14/24 08/14/24 13:59 14:13 15:29 WBC RBC Hgb Hct MCV MCH MCHC RDW Plt Count MPV Immature Gran % (Auto) Neut % (Auto) Lymph % (Auto) [place] % (Auto) Eos % (Auto) Baso % (Auto) Lymph # (Auto) [place] # (Auto) Eos # (Auto) Baso # (Auto) Abs Immat Gran (auto) Absolute Neuts (auto) Absolute Nucleated RBC Nucleated RBC % (auto) Smear Path Review PT INR APTT VBG pH 7.52 H VBG pCO2 53 VBG pO2 29 VBG HCO3 44 H VBG O2 Saturation TNP VBG Base Excess 19.6 Sodium Potassium Chloride Carbon Dioxide Anion Gap BUN Creatinine Estim Creat Clear Calc Estimated GFR POC Glucose Random Glucose Lactic Acid 2.0 Calcium Total Bilirubin Direct Bilirubin AST ALT Alkaline Phosphatase Troponin I High Sens B-Natriuretic Peptide Total Protein Albumin Lipase Influenza Type A (PCR) Influenza Type B (PCR) RSV RNA Qual (PCR) SARS-CoV-2 RNA (RT-PCR) Blood Type A Positive Antibody Screen NEGATIVE Crossmatch See Detail 08/14/24 08/15/24 08/16/24 16:11 04:46 05:06 WBC 20.2 H RBC 2.25 L Hgb 6.6 L* Hct 19.9 L* MCV 88.4 MCH 29.3 MCHC 33.2 RDW 14.0 Plt Count 246 MPV 10.3 Immature Gran % (Auto) Neut % (Auto) Lymph % (Auto) [place] % (Auto) Eos % (Auto) Baso % (Auto) Lymph # (Auto) [place] # (Auto) Eos # (Auto) Baso # (Auto) Abs Immat Gran (auto) Absolute Neuts (auto) Absolute Nucleated RBC 0.020 H Nucleated RBC % (auto) 0.1 Smear Path Review PT 107.5 H 12.0 D INR 9.2 H* 1.0 D APTT VBG pH VBG pCO2 VBG pO2 VBG HCO3 VBG O2 Saturation VBG Base Excess Sodium 141 Potassium 5.1 Chloride 102 Carbon Dioxide 31 H Anion Gap 13 BUN 56 H Creatinine 0.79 Estim Creat Clear Calc 92.3 Estimated GFR > 60 POC Glucose Random Glucose 150 H Lactic Acid Calcium 8.3 L Total Bilirubin Direct Bilirubin AST ALT Alkaline Phosphatase Troponin I High Sens B-Natriuretic Peptide Total Protein Albumin Lipase Influenza Type A (PCR) Influenza Type B (PCR) RSV RNA Qual (PCR) SARS-CoV-2 RNA (RT-PCR) Blood Type Antibody Screen Crossmatch 08/16/24 09:15 WBC 20.7 H RBC 2.81 L D Hgb 8.4 L D Hct 25.8 L D MCV 91.8 MCH 29.9 MCHC 32.6 RDW 14.6 Plt Count 242 MPV 10.5 Immature Gran % (Auto) 4.8 H Neut % (Auto) 82.0 H Lymph % (Auto) 9.7 L [place] % (Auto) 3.4 Eos % (Auto) 0.0 Baso % (Auto) 0.1 Lymph # (Auto) 2.0 [place] # (Auto) 0.7 Eos # (Auto) 0.0 Baso # (Auto) 0.0 Abs Immat Gran (auto) 1.00 H Absolute Neuts (auto) 17.0 H Absolute Nucleated RBC 0.040 H Nucleated RBC % (auto) 0.2 Smear Path Review PT INR APTT VBG pH VBG pCO2 VBG pO2 VBG HCO3 VBG O2 Saturation VBG Base Excess Sodium 139 Potassium 5.0 Chloride 99 Carbon Dioxide 33 H Anion Gap 12 BUN 34 H Creatinine 0.78 Estim Creat Clear Calc 93.5 Estimated GFR > 60 POC Glucose Random Glucose 145 H Lactic Acid Calcium 8.6 Total Bilirubin Direct Bilirubin AST ALT Alkaline Phosphatase Troponin I High Sens B-Natriuretic Peptide Total Protein Albumin Lipase Influenza Type A (PCR) Influenza Type B (PCR) RSV RNA Qual (PCR) SARS-CoV-2 RNA (RT-PCR) Blood Type Antibody Screen Crossmatch Assessment and Plan Final Anesthetic Review Family History of Problems with Anesthesia: No History of Problems with Anesthesia: No
--- NOTE | 2024-08-16 10:45 | MHC.SHP ---
Pre-Procedural Eval Section A - 24 Hr Update-Section A only Date of Service: 08/16/24 The patient is an INPATIENT: Yes The patient has been examined within 24 hours of the surgical procedure. The History & Physical has been completed within 30 days and I have reviewed it.: Yes Section B - Complete if H&P > 30 days Chief Complaint: GI bleed, pneumonia Allergies: Allergies Allergy/AdvReac Type Severity Reaction Status Date / Time head and shoulders shampoo AdvReac Severe burn Uncoded 08/14/24 13:41 Plan Diagnosis/Plan: Unchanged I have reviewed the history and physical and performed a pertinent physical examination on my patient. No changes have occurred unless specified. Time Spent With Patient Time: Total time managing care of this patient today ____ minutes.
--- NOTE | 2024-08-16 10:52 | PC.NURSE ---
pt had small bowel movement that was dark maroon in color, pt to or for upper endoscopy, skin wpd, no sob, alert, npo after morning liquids at 0730.
--- NOTE | 2024-08-16 11:45 | P.OP_ITS ---
Operative Note Operative Note Date of Service: 08/16/24 Narrative: Procedure: Esophagogastroduodenoscopy Endoscopist: Nisa Hendricks MD Indication: GIB Anesthesia Provider: Dr Analilia Marsh Anesthesia Type: GEA ?? EGD Procedure:?? The procedure, indications, preparation and potential complications were reviewed with the patient, who indicated understanding and gave written informed consent to proceed. A physical exam was performed. []The patient was electively intubated for airway protection the anesthesiologist. The endoscope was introduced through the mouth, and advanced to the first part of jejunum. The mucosa was carefully examined on slow withdrawal of the endoscope. The patient tolerated the procedure well. There were no immediate complications.? ? EGD Findings:? * Esophagus:? Normal mucosa noted in the entire esophagus. The Z line was at 43 cm. * Stomach:? Normal mucosa was noted in the stomach. Retroflexion was performed in the cardia. * Duodenum:? Erythema, edema with a small erosion was noted in the duodenal sweep. There was also a 1.5 cm nodule noted in the duodenal bulb. Bite on bite cold forceps biopsies were taken from the nodule. Cold forceps biopsies were also taken from the duodenum. * Jejunum: Normal to the extent examined. ? EGD Impressions:? * Normal esophagus * Normal stomach * Duodenitis/healing ulcer (biopsy) * Duodenal nodule (biopsy) * Normal jejunal mucosa ?? Recommendations:?? * Follow biopsy results. * Bleeding likely possible from healing ulcer/duodenitis in the setting of supratherapeutic INR. * Cont PO PPI bid x 8 weeks and then once daily * Monitor CBC daily. * If no further drop in H/H over next 24h, further endoscopic work up can be pursued as outpatient (colo due for hx of polyps 2020)
[2024-08-16] MEDS: cefTRIAXone sodium 1 GM VIAL IVPUSH (15:30)
[2024-08-16] MEDS: Azithromycin 500 MG in 0.9 % Sodium Chloride 250 ML 125 MG IV (15:57)
[2024-08-17] VITALS (10 sets, daily range): BP systolic 124–154; BP diastolic 56–78; PULSE 74–92; RESP 15–20; TEMP 36–36.9; O2SAT 91–99
[2024-08-17] MEDS: methylPREDNISolone Sod Succ 40 MG/ML VIAL IVPUSH ×2 (03:03→13:40)
[2024-08-17] MEDS: Pantoprazole Sodium 40 MG/10 ML VIAL IVPUSH ×2 (06:22→16:07)
[2024-08-17 07:08] LABS: Hematocrit 24.7 % (42.0-52.0); Hemoglobin 7.9 g/dl (14.0-18.0); Mean Corpuscular Hemoglobin 29.6 pg (27.0-33.0); Mean Corpuscular Volume 92.5 fL (80.0-98.0); NRBC Pct Auto 0.3 /100WBC (0.0-0.2); Platelet Count 232 X10*3/uL (160-400); Red Blood Count 2.67 X10*6/uL (4.60-5.80); Red Cell Distribution Width 14.5 % (11.0-16.0); White Blood Count 20.2 X10*3/uL (4.8-10.8)
[2024-08-17 07:12] LABS: INTERNATIONAL NORM RATIO 1.1 (0.9-1.1); Prothrombin Time 13.3 SEC (10.9-12.4)
[2024-08-17 07:22] LABS: Anion Gap 10 (12-20); Blood Urea Nitrogen 29 mg/dL (9-16); Calcium 8.7 mg/dL (8.4-10.2); Carbon Dioxide 35 mmol/L (22-29); Chloride 98 mmol/L (96-108); Creatinine Clr Calc Pharmacy 91.2; Estimated Glomerular Filt Rate > 60; Glucose Random 103 mg/dL (60-115); Potassium 4.6 mmol/L (3.3-5.1); Sodium 138 mmol/L (135-145)
--- NOTE | 2024-08-17 07:32 | P.PNIM_ITS ---
Subjective Subjective Date of Service: 08/17/24 Interval History: Alert and interactive Hb mild drop to 7.9 passed melena yesterday but stable overnight no other events Review of Systems Review of Systems: Yes all other systems are reviewed and are negative Physical Exam 2 Vital Signs: Vital Signs: Last Vital Signs Temp 96.8 F 08/17/24 07:29 Pulse 74 08/17/24 07:29 Resp 18 08/17/24 07:29 BP 154/66 H 08/17/24 07:29 Pulse Ox 95 08/17/24 07:29 O2 Del Method Nasal Cannula 08/17/24 07:29 O2 Flow Rate 2 08/17/24 07:29 Oxygen Flow Rate 2 08/14/24 13:35 BMI result Body Mass Index 30.4 Const: Other: Constitutional : interactive, not in distress Cardiovascular : no JVP, no lower extremity edema Respiratory : bilateral chest movement, not in resp distress Gastrointestinal: soft, lax, Non tender Skin : Warm, Dry Neurological : Alert & oriented , No focal deficit Objective Data Active Medications Acetaminophen (Acetaminophen 325 Mg Tablet) 650 mg PO Q6H PRN PRN Reason: Pain, Mild 1-3,fever,headache Albuterol Sulfate (Albuterol Sulfate 90 Mcg 8 Gm Inhaler) 2 puff INHALE Q6H PRN PRN Reason: Shortness of Breath Albuterol/Ipratropium (Albuterol/Iprat 2.5/0.5mg 3 Ml Ampul.Neb) 3 ml INHALE RQID [facility] Last Admin: 08/16/24 21:01 Dose: 3 ml Documented By: LEVAR Ceftriaxone Sodium (Ceftriaxone Sodium 1 Gm Vial) 1 gm IVPUSH Q24H [facility] Last Admin: 08/16/24 15:30 Dose: 1 gm Documented By: LULA Fluticasone/Vilanterol (Fluticasone/Vilanterol 100/25 Blst.W.Dev) 1 puff INHALE RDAILY [facility] Last Admin: 08/16/24 07:45 Dose: 1 puff Documented By: CHAVA Azithromycin 500 mg/ Sodium (Chloride) 250 mls @ 125 mls/hr IV Q24H [facility] Last Infusion: 08/16/24 17:58 Dose: Infused Documented By: LULA Methylprednisolone Sodium Succinate (Methylprednisolone Sod Succ 40 Mg/Ml Vial) 40 mg IVPUSH Q12H [facility] Last Admin: 08/17/24 03:03 Dose: 40 mg Documented By: CHRIS Metoprolol Succinate (Metoprolol Succinate Er 100 Mg Tab.Er.24h) 100 mg PO DAILY [facility]; Protocol Last Admin: 08/16/24 07:44 Dose: 100 mg Documented By: CHAVA Multivitamins/Vitamin C (Multivitamin Tablet) 1 tab PO DAILY [facility] Last Admin: 08/16/24 07:44 Dose: 1 tab Documented By: CHAVA Ondansetron HCl (Ondansetron Hcl 4 Mg/2 Ml Vial) 4 mg IVPUSH Q8H PRN PRN Reason: Nausea and Vomiting Pantoprazole Sodium (Pantoprazole Sodium 40 Mg/10 Ml Vial) 40 mg IVPUSH BID@0630,1630 [facility] Last Admin: 08/17/24 06:22 Dose: 40 mg Documented By: CHRIS Labs 08/17/24 05:47 08/17/24 05:48 Labs: Laboratory Results - last 24 hr 08/16/24 08/17/24 08/17/24 09:15 05:47 05:48 MCV 91.8 92.5 MCH 29.9 29.6 MCHC 32.6 32.0 RDW 14.6 14.5 Plt Count 242 232 MPV 10.5 11.0 Immature Gran % (Auto) 4.8 H Cancelled Neut % (Auto) 82.0 H Cancelled Lymph % (Auto) 9.7 L Cancelled [place] % (Auto) 3.4 Cancelled Eos % (Auto) 0.0 Cancelled Baso % (Auto) 0.1 Cancelled Lymph # (Auto) 2.0 Cancelled [place] # (Auto) 0.7 Cancelled Eos # (Auto) 0.0 Cancelled Baso # (Auto) 0.0 Cancelled Abs Immat Gran (auto) 1.00 H Cancelled Absolute Neuts (auto) 17.0 H Cancelled Absolute Nucleated RBC 0.040 H 0.060 H Nucleated RBC % (auto) 0.2 0.3 H PT 13.3 H INR 1.1 Anion Gap 12 10 L Estim Creat Clear Calc 93.5 91.2 Estimated GFR > 60 > 60 Random Glucose 145 H 103 Calcium 8.6 8.7 Microbiology Microbiology Results: Microbiology 08/14/24 16:51 Blood Culture - Preliminary Blood - Venous No growth after 48 hours. 08/14/24 16:51 Blood Culture - Preliminary Blood - Venous No growth after 48 hours. Assessment and Plan (1) GI bleed: Status: Acute (2) Acute on chronic blood loss anemia: Status: Acute (3) COPD exacerbation: Status: Acute (4) Pneumonia: Status: Acute Plan 74 year old man admitted with severe anemia and COPD exacerbation and pneumonia Acute on chronic hypoxic respiratory failure secondary to COPD exacerbation and Sepsis from CAP consolidation noted on CXR Pending cultures continue Rocephin and azithromycin Scheduled Albuterol, solumedrol supplemental oxygen to keep sats >90% Acute blood loss anemia 2/2 duodenal ulcer Hb improved to 7.9 total 4 units transfusion IV Pantoprazole GI did EGD, Duodenitis w healing ulcer, 8 weeks bid PPI then daily check HH , if stable outpatient colonoscopy Supratherapeutic INR improved to 1 s/p vitamin K to restart Warfarin Hyperkalemia Lokelma follow Paroxysmal atrial fibrillation. RVR resolved Continue beta-fior Hold warfarin due to GI bleeding Hypertension Soft blood pressures Hold any antihypertensive medications Ischemic cardiomyopathy Status post pacemaker DVT prophylaxis with SCD boots due to anemia and GI bleed Full code The patient will need overnight stay to monitor blood level, recurrent of bleeding and transfusion while starting Warfarin therapy Quality Stroke Does the patient have a stroke diagnosis?: No VTE Prior VTE?: No VTE Risk Level:: Medical - moderate - high VTE Device Contraindication: N/A - Device Ordered VTE Drug Contraindication: Treatment Not Indicated
[2024-08-17 07:42] LABS: Band Neutrophils Percent 1 % (3-5); Lymphocytes Percent Manual 10 % (20-40); Monocytes Absolute Manual 0.8 X10*3/uL (0.1-1.2); Monocytes Percent Manual 4 % (2-11); Myelocytes Absolute 0.2 X10*/uL; Myelocytes Percent 1 %; Neutrophils Absolute Manual 17.2 X10*3/uL (2.0-8.3); Neutrophils Percent Manual 84 % (45-73)
[2024-08-17 07:44] LABS: Platelet Estimate NORMAL (NORMAL); Platelet Morphology Comment NORMAL; Polychromasia 1+ (0-2) /OIF; RBC Morphology NOTED
--- NOTE | 2024-08-17 07:45 | HO.POSTANES ---
Post Anesthesia Evaluation Post Anesthesia Evaluation Date of Service: 08/17/24 Vital Signs: Vital Signs Temp Pulse Resp BP Pulse Ox O2 Del Method O2 Flow Rate 08/17/24 07:29 96.8 F 74 18 154/66 H 95 Nasal Cannula 2 08/17/24 03:01 97.2 F 78 20 129/62 93 Nasal Cannula 2.5 08/16/24 23:50 96.9 F 88 20 130/60 93 Nasal Cannula 2.5 08/16/24 21:01 83 14 Anesthesia: TIVA Mental Status: Awake Pain Control: Satisfactory Nausea/Vomiting: None Hydration: Adequate Anesthesia-Related Issues: No Anes. Related Issues
[2024-08-17] MEDS: Albuterol/Iprat 2.5/0.5MG 3 ML AMPUL.NEB INHALE ×4 (08:11→19:47)
[2024-08-17] MEDS: Multivitamin TABLET 1 TAB PO (08:43)
[2024-08-17] MEDS: Fluticasone/Vilanterol 100/25 BLST.W.DEV 1 PUFF INHALE (08:43)
[2024-08-17] MEDS: Metoprolol Succinate ER 100 MG TAB.ER.24H PO (08:43)
[2024-08-17 15:32] LABS: Hematocrit 24.6 % (42.0-52.0); Hemoglobin 7.9 g/dl (14.0-18.0); Mean Corpuscular HGB Conc 32.1 g/dl (31.0-36.0); Mean Corpuscular Hemoglobin 29.8 pg (27.0-33.0); Mean Corpuscular Volume 92.8 fL (80.0-98.0); NRBC Pct Auto 0.3 /100WBC (0.0-0.2); Platelet Count 236 X10*3/uL (160-400); Red Blood Count 2.65 X10*6/uL (4.60-5.80); Red Cell Distribution Width 14.5 % (11.0-16.0); White Blood Count 22.7 X10*3/uL (4.8-10.8)
[2024-08-17 15:54] LABS: OBS Int Ctl Valid YES; OBS1 POSITIVE (NEGATIVE)
[2024-08-17] MEDS: cefTRIAXone sodium 1 GM VIAL IVPUSH (16:10)
[2024-08-17] MEDS: Azithromycin 500 MG in 0.9 % Sodium Chloride 250 ML 125 MG IV (16:26)
[2024-08-17] MEDS: Warfarin Sodium 5 MG TABLET PO (18:26)
[2024-08-18] MEDS: methylPREDNISolone Sod Succ 40 MG/ML VIAL IVPUSH (02:04)
[2024-08-18 03:11] VITALS: BP 162/72; PULSE 78; RESP 18; TEMP 36.3; O2SAT 95
[2024-08-18] MEDS: Pantoprazole Sodium 40 MG/10 ML VIAL IVPUSH (05:57)
[2024-08-18 06:39] LABS: INTERNATIONAL NORM RATIO 1.3 (0.9-1.1); Prothrombin Time 14.8 SEC (10.9-12.4)
[2024-08-18 06:52] VITALS: BP 138/61; PULSE 85; RESP 16; TEMP 36.6; O2SAT 97
[2024-08-18] MEDS: Albuterol/Iprat 2.5/0.5MG 3 ML AMPUL.NEB INHALE (08:08)
[2024-08-18] MEDS: Fluticasone/Vilanterol 100/25 BLST.W.DEV 1 PUFF INHALE (08:08)
[2024-08-18 08:09] VITALS: PULSE 85; RESP 16; O2SAT 96
[2024-08-18 08:34] LABS: Hematocrit 26.3 % (42.0-52.0); Hemoglobin 8.1 g/dl (14.0-18.0); Mean Corpuscular HGB Conc 30.8 g/dl (31.0-36.0); Mean Corpuscular Hemoglobin 28.9 pg (27.0-33.0); Mean Corpuscular Volume 93.9 fL (80.0-98.0); Mean Platelet Volume 10.9 fL (9.4-12.4); NRBC Pct Auto 0.1 /100WBC (0.0-0.2); Platelet Count 251 X10*3/uL (160-400); Red Cell Distribution Width 14.6 % (11.0-16.0); White Blood Count 22.8 X10*3/uL (4.8-10.8)
[2024-08-18] MEDS: Multivitamin TABLET 1 TAB PO (08:47)
[2024-08-18] MEDS: Metoprolol Succinate ER 100 MG TAB.ER.24H PO (08:47)
--- NOTE | 2024-08-18 11:03 | PM.DS ---
DS: Providers Provider Date of Service: 08/18/24 Date of admission: 08/14/24 15:25 Date of discharge: 08/18/24 Primary care physician: Charbel Poe MD Consults: 08/14/24 15:24 Consult to Gastroenterology Routine Consulting Provider: Nisa Hendricks Reason for consultation: GI bleed DS: Diagnosis Discharge Diagnosis (1) GI bleed: Status: Acute (2) Acute on chronic blood loss anemia: Status: Acute (3) COPD exacerbation: Status: Acute (4) Pneumonia: Status: Acute (5) Elevated INR: Status: Acute DS: Summary Hospital Course Hospital Course: Admission note HPI 74-year-old male with a history of COPD on chronic oxygen at home presented to the ER with complaints of worsening shortness of breath and blood per rectum. Patient reports over the last 2 days he has had about 3 episodes of black stool usually in the middle of the night. He reported overnight he had a difficult time falling asleep and staying asleep and was an unable to lie flat. He denied any recent illness, travel, sick contacts, chest pain, nausea, vomiting. He does live alone and is pretty independent. In the ER, H&H was noted to be 6.1/20.5, white blood cell count 17.6, INR 8.8, potassium 5.3, negative flu, RSV and COVID. Chest x-ray showing patchy opacities in the right middle/lower lobe and left lower lobe, tachycardia and tachypnea noted. Patient received a dose of Solu-Medrol, albuterol, vitamin K, Lokelma 1 L of IV fluid in the ER. He will be admitted for further management and treatment of acute respiratory failure secondary to COPD cap and GI bleed. Hospital course The patient was treated for the following: # Acute on chronic hypoxic respiratory failure secondary to COPD exacerbation and Sepsis from community aquired pneumonia as consolidation noted on CXR. blood cultures remained negative as he was treated with IV Rocephin and azithromycin along with Scheduled Albuterol, solumedrol. supplemental oxygen to keep sats >90%. To be discharged home on Azithromycin, Ceftin for 4 more days to finish 1 week of antibiotics. He is back on baseline 2L of O2 and was able to ambulate with no reported dyspnea. Leukocytosis secondary to Steroid usage. # Acute blood loss anemia 2/2 duodenal ulcer The patient presented with melena. Required total of 4 units transfusion as his Hb on presentation was 6.1 with elevated INR of 9.2. recieved Vit K with improvement of INR to 1. started on IV Pantoprazole as Dr Hendricks from GI did EGD, showing Duodenitis w healing ulcer, recommended 8 weeks bid PPI then daily. To check cbc as outpatient. for outpatient colonoscopy. Hb of 8.1 at time of discharge. # Supratherapeutic INR , improved to 1 s/p vitamin K , restarted Warfarin with INR of 1.3. to be followed at home with goal INR 2-3. to Follow with Warfarin clinic next week for testing at least twice. Adjust Warfarin dose as needed. # acute Hyperkalemia. responded well to Lokelma # Paroxysmal atrial fibrillation with RVR on presentation. resolved with beta-fior. Warfarin restarted. Discharge plan Finish Azithromycin and Ceftin course as prescribed Take Omeprazole 40 mg bid for 8 weeks then switch to 40 mg daily. Target INR of 2-3 all the time, Follow with Warfarin clinic next week for testing at least twice. Adjust Warfarin dose as needed. repeat blood test next week Follow with GI dr Hendricks as needed as outpatient Time Attestation Discharge Coordination Time (in mins): 43 Quality: Safe Use of Opioids Does Pt have an Active Cancer Diagnosis on the Problem List?: No Quality: Stroke Does the patient have a stroke diagnosis?: No Physical Exam Vital Signs: Vital Signs: Last Vital Signs Temp 98 F 08/18/24 06:52 Pulse 85 08/18/24 08:09 Resp 16 08/18/24 08:09 BP 138/61 08/18/24 06:52 Pulse Ox 97 08/18/24 06:52 O2 Del Method Nasal Cannula 08/18/24 06:52 O2 Flow Rate 2.5 08/18/24 06:52 Oxygen Flow Rate 2 08/14/24 13:35 BMI result Body Mass Index 30.4 Const: Other: Constitutional : interactive, not in distress Cardiovascular : no JVP, no lower extremity edema Respiratory : bilateral chest movement, not in resp distress Gastrointestinal: soft, lax, Non tender Skin : Warm, Dry Neurological : Alert & oriented , No focal deficit DS: Data Data Completed and Pending Completed studies during hospitalization [Text1]: Pending at discharge 08/16/24 11:39 Surgical [PTH] Routine Procedures Insertion of Pacemaker Lead into Right Atrium, Percutaneous Approach (07/01/20) Insertion of Pacemaker Lead into Right Ventricle, Percutaneous Approach (07/01/20) Insertion of Pacemaker, Dual Chamber into Chest Subcutaneous Tissue and Fascia, Open Approach (07/01/20) Labs on day of discharge: Laboratory Results - last 24 hr 08/17/24 08/17/24 08/18/24 14:45 15:30 06:22 WBC 22.7 H RBC 2.65 L Hgb 7.9 L Hct 24.6 L MCV 92.8 MCH 29.8 MCHC 32.1 RDW 14.5 Plt Count 236 MPV 11.0 Absolute Nucleated RBC 0.070 H Nucleated RBC % (auto) 0.3 H PT 14.8 H INR 1.3 H Stool Occult Blood POSITIVE 08/18/24 07:58 WBC 22.8 H RBC 2.80 L Hgb 8.1 L Hct 26.3 L MCV 93.9 MCH 28.9 MCHC 30.8 L RDW 14.6 Plt Count 251 MPV 10.9 Absolute Nucleated RBC 0.030 H Nucleated RBC % (auto) 0.1 PT INR Stool Occult Blood Preliminary micro results at discharge 08/14/24 16:51 Blood Culture - Preliminary Blood - Venous No growth after 48 hours. 08/14/24 16:51 Blood Culture - Preliminary Blood - Venous No growth after [address] scan - abdomen: Radiologist's impression: ITS Impressions Chest X-Ray 08/14/24 14:00 IMPRESSION: Patchy opacities in the right middle, lower lobe and left lower lobe. Question developing infiltrates acute versus chronic. Electronically signed by: Emanuel Villegas MD 08/14/2024 02:56 PM [facility] Discharge Plan Discharge Anticipated Discharge Date/Time: 08/18/24 10:55 Patient Disposition: Home, Self-Care Discharge Diagnosis: Pneumonia Duodenal ulcer Referrals: Charbel Poe MD [Primary Care Provider] - 1 Week Discharge Medications: New azithromycin 500 mg tablet 500 mg PO DAILY 4 Days Qty: 4 0RF cefuroxime axetil 500 mg tablet 500 mg PO BID Qty: 8 0RF omeprazole 40 mg capsule,delayed release(DR/EC) 40 mg PO BID 90 Days Qty: 180 0RF Rx Instructions: Take 40 mg bid for 8 weeks then switch to 40 mg daily. prednisone 20 mg tablet 40 mg PO DAILY Qty: 6 0RF Continued (DME) nebulizers Misc See Rx Instructions .Route Qty: 1 0RF Rx Instructions: To use every 4 hours ipratropium-albuterol 0.5 mg-3 mg(2.5 mg base)/3 mL solution for nebulization 3 ml inhalation QID Qty: 1080 3RF spironolactone 25 mg tablet 12.5 mg PO DAILY Qty: 45 3RF lisinopril 5 mg tablet 2.5 mg PO DAILY Qty: 45 3RF metoprolol succinate 50 mg tablet extended release 24 hr 100 mg PO DAILY Qty: 180 3RF warfarin 5 mg tablet 2.5 mg PO TUTH warfarin 5 mg tablet 5 mg PO Protocol: Dose Management Condition: Wednesday (Week One) Dose/Route: 5 mg Instruction: 1 x 5 mg tablet Condition: Wednesday Dose/Route: 2.5 mg Instruction: 0.5 x 5 mg tablets Condition: Wednesday Dose/Route: 5 mg Instruction: 1 x 5 mg tablet Condition: Wednesday Dose/Route: 5 mg Instruction: 1 x 5 mg tablet Condition: Dose/Route: 2.5 mg Instruction: 0.5 x 5 mg tablets Condition: Wednesday Dose/Route: 5 mg Instruction: 1 x 5 mg tablet Condition: Wednesday Dose/Route: 5 mg Instruction: 1 x 5 mg tablet Condition: Wednesday (Week Two) Dose/Route: 5 mg Instruction: 1 x 5 mg tablet Condition: Wednesday Dose/Route: 2.5 mg Instruction: 0.5 x 5 mg tablets Condition: Wednesday Dose/Route: 5 mg Instruction: 1 x 5 mg tablet Condition: Wednesday Dose/Route: 5 mg Instruction: 1 x 5 mg tablet Condition: Dose/Route: 2.5 mg Instruction: 0.5 x 5 mg tablets Condition: Wednesday Dose/Route: 5 mg Instruction: 1 x 5 mg tablet Condition: Wednesday Dose/Route: 5 mg Instruction: 1 x 5 mg tablet Protocol Text: Adjustment Start Date: Wednesday07/25/24 INR Value: 3.1 INR Date: 07/25/24 Recheck Date: 08/24/24 Additional Instructions: REVIEW FOOD LIST WEEKLY, EAT A MIX OF FRUITS AND VEGETABLES albuterol sulfate 90 mcg/actuation Hfa Aerosol Inhaler 2 puff INHALATION Q6H PRN (Reason: SOB) (DME) Oxygen Home Use Kit See Rx Instructions .Route Rx Instructions: As directed multivitamin [Daily Multi-Vitamin] Tablet 1 tab PO DAILY budesonide-formoterol 80-4.5 mcg/actuation HFA aerosol inhaler 2 puff inhalation BID 90 Days Qty: 10.2 3RF Discharge Orders: Discharge Order (Routine); Ordered 08/18/24 Ordered By: Magali Flores Diet: Advance to usual diet Activity on Discharge: As tolerated Stand Alone Forms: Patient Portal Discharge page Print Language: Brazilian Other Ambulatory Orders: Complete Blood Count Auto Diff (Routine) Timeframe: 1 Week Facility: [facility] - Location: Laboratory Ordered By: Magali Flores Care Plan Goals: Finish Azithromycin and Ceftin course as prescribed Take Omeprazole 40 mg bid for 8 weeks then switch to 40 mg daily. Prednisone for 3 more days Target INR of 2-3 all the time, Follow with Warfarin clinic next week for testing at least twice. Adjust Warfarin dose as needed. repeat blood test next week Follow with GI dr Hendricks as needed for outpatient colonoscopy Health Concerns: Pneumonia Duodenal ulcer Plan of Treatment: Omeprazole Antibiotics Assessment: as above
--- NOTE | 2024-08-18 11:16 | MHC.CM.PN ---
Per MD rounds patient medically cleared for dc home self care. Patient's brother, Kirit, will transport home at 1pm and will bring patient's portable O2. RN aware. IMM delivered.
[2024-08-18 12:00] VITALS: BP 142/74; PULSE 80; RESP 17; TEMP 36.4; O2SAT 96
== END 2024-08-18 13:43 | disposition home or self-care (01) | DRG 871 ==
LOC: HO.ED 14:36 → HO.EDOVER 15:45 → HO.S3 08-16 14:35
PROVIDERS: Internal Medicine; Admitting Provider Nurse Practitioner Acute Care; Emergency Provider Student in an Organized Health Care Education/Training Program; PCP Internal Medicine; Visit Provider Student in an Organized Health Care Education/Training Program
PROC: 0DJ08ZZ Inspection of Upper Intestinal Tract, Via Natural or Artificial Opening Endoscopic (ICD-10-PCS; CPT 43235; principal; 2024-08-16 11:10)
DX: A41.9 Sepsis, unspecified organism (principal); J18.9 Pneumonia, unspecified organism; J96.21 Acute and chronic respiratory failure with hypoxia; K26.4 Chronic or unspecified duodenal ulcer with hemorrhage; J44.1 Chronic obstructive pulmonary disease with (acute) exacerbation; J44.0 Chronic obstructive pulmonary disease with (acute) lower respiratory infection; D62 Acute posthemorrhagic anemia; I44.2 Atrioventricular block, complete; R79.1 Abnormal coagulation profile; I48.0 Paroxysmal atrial fibrillation; K31.89 Other diseases of stomach and duodenum; E87.5 Hyperkalemia; I25.5 Ischemic cardiomyopathy; I10 Essential (primary) hypertension; F17.210 Nicotine dependence, cigarettes, uncomplicated; Z71.6 Tobacco abuse counseling; Z20.822 Contact with and (suspected) exposure to COVID-19; Z95.0 Presence of cardiac pacemaker; Z99.81 Dependence on supplemental oxygen; Z79.01 Long term (current) use of anticoagulants; Z79.899 Other long term (current) drug therapy
CPT/HCPCS: 0241U; 36415; 71045; 80048; 80076; 82272; 82803; 82947; 83605; 83690; 83880; 84484; 85007; 85025; 85027; 85610; 85730; 86850; 86900; 86901; 86923; 87040; 88305; 88313; 93005; 94640; 99285; J0456; J0696; J1100; J1596; J2003; J2270; J2470; J2919; J3430; P9016

== ENCOUNTER → 2024-08-14 13:39 | Outpatient (BNV) | payer MEDICARE, SELFPAY | PROVIDERS: Emergency Provider Student in an Organized Health Care Education/Training Program; Visit Provider Radiology Diagnostic Radiology | DX: R91.8 Other nonspecific abnormal finding of lung field (principal) | CPT/HCPCS: 71045 ==

== ENCOUNTER → 2024-08-14 13:39 | Outpatient (BNV) | payer MEDICARE, SELFPAY | PROVIDERS: Admitting Provider Nurse Practitioner Acute Care; Emergency Provider Student in an Organized Health Care Education/Training Program; Visit Provider Internal Medicine Cardiovascular Disease | DX: R94.31 Abnormal electrocardiogram [ECG] [EKG] (principal); R06.02 Shortness of breath | CPT/HCPCS: 93010 ==

== ENCOUNTER → 2024-08-14 15:25 | Outpatient (BNV) | payer MEDICARE, SELFPAY | PROVIDERS: Admitting Provider Nurse Practitioner Acute Care; Emergency Provider Student in an Organized Health Care Education/Training Program; Visit Provider Nurse Practitioner Acute Care | DX: K92.2 Gastrointestinal hemorrhage, unspecified (principal); D62 Acute posthemorrhagic anemia; J44.1 Chronic obstructive pulmonary disease with (acute) exacerbation; J18.9 Pneumonia, unspecified organism; R79.1 Abnormal coagulation profile | CPT/HCPCS: 99223; 99232; 99239 ==

== ENCOUNTER → 2024-08-14 15:25 | Outpatient (BNV) | payer MEDICARE, SELFPAY | PROVIDERS: Admitting Provider Nurse Practitioner Acute Care; Emergency Provider Student in an Organized Health Care Education/Training Program; Visit Provider Internal Medicine | DX: D64.9 Anemia, unspecified (principal); R79.1 Abnormal coagulation profile; J44.1 Chronic obstructive pulmonary disease with (acute) exacerbation; J96.91 Respiratory failure, unspecified with hypoxia; Z79.01 Long term (current) use of anticoagulants; I48.0 Paroxysmal atrial fibrillation | CPT/HCPCS: 99222 ==

== ENCOUNTER 2024-08-21 10:49 | Outpatient (AMB) | payer MEDICARE, SELFPAY ==
--- NOTE | 2024-08-21 10:50 | MHC.OFFVISCO ---
Intake Intake Visit Reasons: Anticoagulation Allergies head and shoulders shampoo Adverse Reaction (Severe, Uncoded 08/21/24 10:49) burn Medication List - Last Reconciled 08/21/24 by Alem Baumann RN albuterol sulfate 90 mcg/actuation 2 puffs inhalation Q6H PRN azithromycin 500 mg PO DAILY 4 days budesonide-formoterol 80-4.5 mcg/actuation 2 puffs inhalation BID 90 days cefuroxime axetil 500 mg PO BID ipratropium-albuterol 0.5 mg-3 mg(2.5 mg base)/3 mL 3 mL inhalation QID lisinopril 2.5 mg (1/2 x 5 mg) PO DAILY metoprolol succinate ER 100 mg (2 x 50 mg) PO DAILY multivitamin (Daily Multi-Vitamin tablet) 1 tab PO DAILY nebulizers To use every 4 hours omeprazole 40 mg PO BID 90 days Oxygen Home Use As directed prednisone 40 mg (2 x 20 mg) PO DAILY spironolactone 12.5 mg (1/2 x 25 mg) PO DAILY warfarin 2.5 mg PO TUTH warfarin 5 mg See Protocol PO [facility]EFR[facility] Nursing Note [facility]: [facility] feeling tiered s/p admission for GI bleed and Pneumonia d/c to home 08/18/2024 INR was 1.3 Status: on 2 antbx azithromycine and cefuroxime, prednisone and omeprazole - all can raise the INR and which he started 08/18/2024 and will be done with steroid and antbx this week. He will cont on omeprazole for 8 weeks ( also can raise the INR value) Denies symptoms of bleeding, bruising or clotting- no black stools - bowels are normal per pt INR: 2.0 today - up from 1.3 on 08/18/24 the day he was d/c to home Therapeutic Range: 2.0-3.0 Dose: decrease dose this week 2.5mg x 3 days/ 5mg x 4days - he will be eating blueberries as a green and to help heal his lungs Nutritional Guidance: Review food list weekly, especially during the holidays, seasonal changes and celebrations. Continue to eat a consistent and balanced diet to keep INR in therapeutic range. Follow-up Appointment: this Wednesday08/25/2024 - he will also have f/u labs that day Patient verbalizes understanding of instructions given regarding dosing, diet and next follow-up appointment with read back. Anti-Coag Initial Assessment Social Hx Patient Tobacco Use Status: Former Tobacco user Tobacco use type: Cigarette alcohol intake: current Alcohol intake frequency: other Cardiovascular Hx: HTN, CHF, Arrhythmias and Other Lung Disease HX: COPD and Other Blood Disorder Hx: Anemia GI Hx: Diverticulosis Neurological Hx: Other Cancer HX: No Psych. Illness/Depression: No Coding Level of Care Code Est Patient Level 1 Diagnoses Current use of anticoagulant therapy Z79.01 Assessment & Plan Assessment & Plan (1) Current use of anticoagulant therapy: Code(s): Z79.01 - tank terminal gauger (current) use of anticoagulants Category: Medical
[2024-08-21 11:03] LABS: Prothrombin Time Whole Bld POC 23.5 sec (11.1-13.5)
--- OUTSIDE RECORDS SUMMARY | 2024-08-21 12:13 | XMS_ITS | Encounter Summary ---
Author Organization [facility] Address [address] [place] [address] Care Team Providers Care Seed Core Operator Name Role Phone Azalia Esposito MD Primary Care Provider Unavailable Azalia Esposito MD Primary Care Provider Unavailable Shaw Cervantes MD Unavailable [phone] Ryan Jenkins MD Unavailable [phone] Rosalva Stern PA-C Unavailable Charbel Poe Primary Care Provider Unavailabl e Encounter Details Date Type Department Care Team Description 10/09/2015 Dump Operator Report Medical Records [address] [place] [id number] Dept., [facility] Occupational & Pt Social History Tobacco Use [...] on filedocumented in this encounter Care Teams Seed Core Operator Relationship Specialty Start Date End Date Azalia Esposito MD PCP - General Internal Medicine 12/02/1502/20/21 Azalia Esposito MD PCP - General 12/31/1411/30 Charbel Poe [address] [place] [address] PCP - General Internal Medicine 02/21/21 Shaw Cervantes MD [address] [place] [address] Specialist Cardiovascular Disease 02/18/21 Ryan Jenkins MD [address] [place] [address] Specialist Cardiology 02/18/21 Rosalva Stern PA-C [address] [place] [address] Specialist Cardiology 02/18/21 documented as of this encounter
--- OUTSIDE RECORDS SUMMARY | 2024-08-21 12:13 | XMS_ITS | Encounter Summary ---
Author Organization [facility] Address [address] [place] [address] Care Team Providers Care Airline Attendant Name Role Phone Timmy-Azalia Recinos MD Primary Care Provider Unavailable Shaw Cervantes MD Unavailable [phone] Ryan Jenkins MD Unavailable [phone] Rosalva Stern PA-C Unavailable Charbel Poe Primary Care Provider Unavailabl e Encounter Details Date Type Department Care Team Description 08/25/2019 [facility] Medical Records [address] [place] [address] [address] Meijeremy [place] [address] [place] [address] Social History Tobacco Use Types Packs/Day Years [...] on filedocumented in this encounter Care Teams Airline Attendant Relationship Specialty Start Date End Date Azalia Esposito MD PCP - General Internal Medicine 12/02/1502/20/21 Charbel Poe [address] [place] [address] PCP - General Internal Medicine 02/21/21 Shaw Cervantes MD [address] [place] [address] Specialist Cardiovascular Disease 02/18/21 Ryan Jenkins MD [address] [place] [address] Specialist Cardiology 02/18/21 Rosalva Stern PA-C [address] [place] [address] Specialist Cardiology 02/18/21 documented as of this encounter
--- OUTSIDE RECORDS SUMMARY | 2024-08-21 12:13 | XMS_ITS | Encounter Summary ---
Author Organization [facility] Address [address] [place] [address] Care Team Providers Care Edging Machine Feeder Name Role Phone [place]-Azalia Recinos MD Primary Care Provider Unavailable Shaw Cervantes MD Unavailable [phone] Ryan Jenkins MD Unavailable [phone] Rosalva Stern PA-C Unavailable Charbel Poe Primary Care Provider Unavailabl e Reason for Visit * Reason Onset Date Comments EKG 09/25/2019 EKG Final Cardi Read Encounter Details Date Type Department Care Team Description 09/25/2019 Telephone Cardio PVC Med [address] [facility] [address] [place] [address] Ynes Cevallos MD EKG (EKG Final Cardi [...] EKG FINAL CARDI READ Faxed EKG to [phone] documented in this encounter Plan of Treatment Not on file documented as of this encounter Visit Diagnoses Not on filedocumented in this encounter Care Teams Edging Machine Feeder Relationship Specialty Start Date End Date [place]-Azalia Recinos MD PCP - General Internal Medicine 12/02/1502/20/21 Charbel Poe [address] [facility] [address] [place] [address] PCP - General Internal Medicine 02/21/21 Shaw Cervantes MD [address] [place] [address] Specialist Cardiovascular Disease 02/18/21 Ryan Jenkins MD [address] [place] [address] Specialist Cardiology 02/18/21 Rosalva Stern PA-C [address] [facility] [address] [place] [address] Specialist Cardiology 02/18/21 documented as of this encounter
--- OUTSIDE RECORDS SUMMARY | 2024-08-21 12:13 | XMS_ITS | Encounter Summary ---
Author Organization [facility] Address [address] [place] [address] Care Team Providers Care Home Health Speech Therapist Name Role Phone Azalia Esposito MD Primary Care Provider Unavailable Shaw Cervantes MD Unavailable [phone] Ryan Jenkins MD Unavailable [phone] Rosalva Stern PA-C Unavailable Charbel Poe Primary Care Provider Unavailabl e Encounter Details Date Type Department Care Team Description 08/09/2019 [facility] Medical Records [address] [place] [address] Tez Coyle MD Social History Tobacco Use [...] filedocumented in this encounter Care Teams Home Health Speech Therapist Relationship Specialty Start Date End Date Azalia Esposito MD PCP - General Internal Medicine 12/02/1502/20/21 Charbel Poe [address] [place] [address] PCP - General Internal Medicine 02/21/21 Shaw Cervantes MD [address] [facility] [address] [place], [place] [id number] Specialist Cardiovascular Disease 02/18/21 Ryan Jenkins MD [address] [place] [address] Specialist Cardiology 02/18/21 Rosalva Stern PA-C [address] [place] [address] Specialist Cardiology 02/18/21 documented as of this encounter
--- OUTSIDE RECORDS SUMMARY | 2024-08-21 12:13 | XMS_ITS | Encounter Summary ---
Author Organization [facility] Address [address] [place] [address] Care Team Providers Care Tanning Drum Operator Name Role Phone Sudarshan Deluca Primary Care Provider Unav ailable hSin Núñez MD Primary Care Provider [phone] Azalia Esposito MD Primary Care Provider Unavailable Azalia Esposito MD Primary Care Provider Unavailable Shaw Cervantes MD Unavailable [phone] Ryan Jenkins MD Unavailable [phone] Rosalva Stern PA-C Unavailable Charbel Poe Primary Care Provider Unavailabl e Encounter Details Date Type Department Care Team Description 07/09/2009 Hospital Medical Records [address] [place] [address] Jason Recinos MD Social History Tobacco Use [...] on filedocumented in this encounter Care Teams Tanning Drum Operator Relationship Specialty Start Date End Date Sudarshan Deluca PCP - General 05/06/10 12/30/14 Shin Núñez MD [address] [place] [address] PCP - General 07/08/09 05/05/10 Timmy-Azalia Recinos MD [address] [place] [address] PCP - General Internal Medicine 12/02/15 02/20/21 Azalia Esposito MD [address] [place] [address] PCP - General 12/31/14 12/01/15 Charbel Poe [address] [place] [address] PCP - General Internal Medicine 02/21/21 Shaw Cervantes MD [address] [place] [address] Specialist Cardiovascular Disease 02/18/21 Ryan Jenkins MD [address] [place] [address] Specialist Cardiology 02/18/21 Rosalva Stern PA-C [address] [place] [address] Specialist Cardiology 02/18/21 documented as of this encounter
--- OUTSIDE RECORDS SUMMARY | 2024-08-21 12:13 | XMS_ITS | Encounter Summary ---
Author Organization [facility] Address [address] [place] [address] Care Team Providers Care Sample Book Maker Name Role Phone Sudarshan Deluca Primary Care Provider Unav ailable Shin Núñez MD Primary Care Provider [phone] Azalia Esposito MD Primary Care Provider Unavailable Azalia Esposito MD Primary Care Provider Unavailable Shaw Cervantes MD Unavailable [phone] Ryan Jenkins MD Unavailable [phone] Rosalva Stern PA-C Unavailable Charbel Poe Primary Care Provider Unavailabl e Encounter Details Date Type Department Care Team Description 07/11/2009 Hospital Medical Records [address] [place] [address] Onesimo Rockwell Social History Tobacco Use Types [...] on filedocumented in this encounter Care Teams Sample Book Maker Relationship Specialty Start Date End Date Sudarshan Deluca PCP - General 05/06/10 12/30/14 Shin Núñez MD [address] [place] [address] PCP - General 07/08/09 05/05/10 Timmy-Azalia Recinos MD [address] [place] [address] PCP - General Internal Medicine 12/02/15 02/20/21 Azalia Esposito MD [address] [place] [address] PCP - General 12/31/14 12/01/15 Charbel Poe [address] [place] [address] PCP - General Internal Medicine 02/21/21 Shaw Cervantes MD [address] [place] [address] Specialist Cardiovascular Disease 02/18/21 Ryan Jenkins MD [address] [place] [address] Specialist Cardiology 02/18/21 Rosalva Stern PA-C [address] [facility] [address] [place] [address] Specialist Cardiology 02/18/21 documented as of this encounter
--- OUTSIDE RECORDS SUMMARY | 2024-08-21 12:13 | XMS_ITS | Encounter Summary ---
Author Organization [facility] Address [address] [place] [address] Care Team Providers Care Agriscience Instructor Name Role Phone Timmy-Azalia Recinos MD Primary Care Provider Unavailable Shaw Cervantes MD Unavailable [phone] Ryan Jenkins MD Unavailable [phone] Rosalva Stern PA-C Unavailable Charbel Poe Primary Care Provider Unavailabl e Encounter Details Date Type Department Care Team Description 08/09/2019 [facility] Medical Records [address] [place] [address] Johan Barragan MD Social History Tobacco Use [...] on filedocumented in this encounter Care Teams Agriscience Instructor Relationship Specialty Start Date End Date Azalia Esposito MD PCP - General Internal Medicine 12/02/1502/20/21 Charbel Poe [address] [place] [address] PCP - General Internal Medicine 02/21/21 Shaw Cervantes MD Medical [facility] [address] [place], [place] [id number] Specialist Cardiovascular Disease 02/18/21 Ryan Jenkins MD [address] [place] [address] Specialist Cardiology 02/18/21 Rosalva Stern PA-C [address] [place] [address] Specialist Cardiology 02/18/21 documented as of this encounter
--- OUTSIDE RECORDS SUMMARY | 2024-08-21 12:13 | XMS_ITS | Clinical Summary ---
Author Organization [facility] Address [address] [place] [address] Care Team Providers Care Kindergartners Helper Name Role Phone Charbel Poe MD Primary Care Provider [phone] Surgical History Surgery Date Site/Laterality Comments OTHER SURGICAL HISTORY PROCEDURE: DENIES PREVIOUS SURGERY COLONOSCOPY 07/09/2009 PROCEDURE: HISTORICAL COLONOSCOPY; COMMENT: [facility]. Diverticulosis. UPPER GASTROINTESTINAL ENDOSCOPY 07/09/2009 PROCEDURE: SD UPPER GI ENDOSCOPY PERFORMED; COMMENT: [facility], GI bleed. No significant abnormalities. Medical History Medical History Date Comments Iron deficiency anemia 07/16/2009 DX:Iron d eficiency anemia Tobacco abuse 07/16/2009 DX:Tobacco abuse ; COMMENT: Has tried Wellbutrin, Chantix, hypnotherapy, nicotine patch and gum 10/22 - [employer] unable to contact after 5 attempts Diverticulosis, sigmoid 07/16/2009 DX:Diver ticulosis, sigmoid; COMMENT: Lower GI bleed 06/23. Admitted to [facility]. Colonoscopy 06/23. 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 Stack Severe obstructive disease by [...] Documents on File Type Date Recorded Patient Elderly Sitter Expl anation Health Care Decision (hx) 02/08/2020 AD PAZ DIRECTIVE Health Care Decision (hx) 02/08/2020 AD PAZ DIRECTIVE Health Care Decision (hx) 02/08/2020 AD PAZ DIRECTIVE Health Care Decision (hx) 02/08/2020 AD PAZ DIRECTIVE Health Care Decision (hx) 02/08/2020 AD PAZ DIRECTIVE Care Teams Kindergartners Helper Relationship Specialty Start Date End Date Charbel Poe MD [address] [place] [address] [address] [place] [address] PCP - General Internal Medicine 02/21/21
--- OUTSIDE RECORDS SUMMARY | 2024-08-21 12:13 | XMS_ITS | Encounter Summary ---
Author Organization [facility] Address [address] [place] [address] Care Team Providers Care Cancer Spec Name Role Phone Timmy-Azalia Recinos MD Primary Care Provider Unavailable Shaw Cervantes MD Unavailable [phone] Ryan Jenkins MD Unavailable [phone] Rosalva Stern PA-C Unavailable Charbel Poe Primary Care Provider Unavailabl e Encounter Details Date Type Department Care Team Description 12/13/2015 Production Weigher Report Medical Records [address] [place] [address] Abstract, Provider Social History Tobacco Use Types [...] on filedocumented in this encounter Care Teams Cancer Spec Relationship Specialty Start Date End Date Azalia Esposito MD PCP - General Internal Medicine 12/02/1502/20/21 Charbel Poe [address] [address] PCP - General Internal Medicine 02/21/21 Shaw Cervantes MD [address] [place] [address] Specialist Cardiovascular Disease 02/18/21 Ryan Jenkins MD [address] [place] [address] Specialist Cardiology 02/18/21 Rosalva Stern PA-C [address] [place] [address] Specialist Cardiology 02/18/21 documented as of this encounter
--- OUTSIDE RECORDS SUMMARY | 2024-08-21 12:13 | XMS_ITS | Encounter Summary ---
Author Organization [facility] Address [address] [place] [address] Care Team Providers Care Rn Intake Name Role Phone Sudarshan Deluca Primary Care Provider Unav ailable Shin Núñez MD Primary Care Provider [phone] Azalia Esposito MD Primary Care Provider Unavailable Azalia Esposito MD Primary Care Provider Unavailable Shaw Cervantes MD Unavailable [phone] Ryan Jenkins MD Unavailable [phone] Rosalva Stern PA-C Unavailable Charbel Poe Primary Care Provider Unavailabl e Encounter Details Date Type Department Care Team Description 07/08/2009 Hospital Medical Records [address] [place] [address] Ruperto Louise MD Social History Tobacco Use [...] filedocumented in this encounter Care Teams Rn Intake Relationship Specialty Start Date End Date Sudarshan Deluca PCP - General 05/06/10 12/30/14 Shin Núñez MD [address] [place] [address] PCP - General 07/08/09 05/05/10 Timmy-Azalia Recinos MD [address] [place] [address] PCP - General Internal Medicine 12/02/15 02/20/21 Azalia Esposito MD [address] [place] [address] PCP - General 12/31/14 12/01/15 Charbel Poe [address] [place] [address] PCP - General Internal Medicine 02/21/21 Shaw Cervantes MD [address] [place] [address] Specialist Cardiovascular Disease 02/18/21 Ryan Jenkins MD [address] [place] [address] Specialist Cardiology 02/18/21 Rosalva Stern PA-C [address] [place] [address] Specialist Cardiology 02/18/21 documented as of this encounter
--- OUTSIDE RECORDS SUMMARY | 2024-08-21 12:13 | XMS_ITS | Encounter Summary ---
Author Organization [facility] Address [address] [place] [address] Care Team Providers Care Phlebotomy Specialist Name Role Phone Azalia Esposito MD Primary Care Provider Unavailable Shaw Cervantes MD Unavailable [phone] Ryan Jenkins MD Unavailable [phone] Rosalva Stern PA-C Unavailable Charbel Poe Primary Care Provider Unavailabl e Reason for Visit * Reason Onset Date Comments Form 09/11/2019 [facility] 08/31/2019- Encounter Details Date Type Department Care Team Description 09/11/2019 Telephone Adult Medicine - [address] [address] Azalia Esposito MD Form ([facility] 08/31/2019-10/29/2019) Social History Tobacco Use Types Packs/Day [...] DATE RECEIVED:09/11/2019 AGENCY:Roxanna Lepe CERT DATES:08/30-10/29/2019 FAX NUMBER:[phone] LOCATION OF [facility]:Call center documented in this encounter Plan of [...] in remission Nondependent alcohol abuse, in remission manager long term care (current) use of inhaled steroids Dependence on supplemental oxygen manager long term care (current) use of anticoagulants Long-term (current) use of anticoagulants documented in this encounter Care Teams Phlebotomy Specialist Relationship Specialty Start Date End Date [place]-Azalia Recinos MD PCP - General Internal Medicine 12/02/1502/20/21 Charbel Poe 300 [address] [place] [address] PCP - General Internal Medicine 02/21/21 Shaw Cervantes MD [address] [place] [address] Specialist Cardiovascular Disease 02/18/21 Ryan Jenkins MD [address] [facility] [address] [place] [address] Specialist Cardiology 02/18/21 Rosalva Stern PA-C [address] [facility] [address] [place] [address] Specialist Cardiology 02/18/21 documented as of this encounter
--- OUTSIDE RECORDS SUMMARY | 2024-08-21 12:13 | XMS_ITS | Encounter Summary ---
Author Organization [facility] Address [address] [place] [address] Care Team Providers Care Manager Rehab Name Role Phone Azalia Esposito MD Primary Care Provider Unavailable Azalia Esposito MD Primary Care Provider Unavailable Shaw Cervantes MD Unavailable [phone] Ryan Jenkins MD Unavailable [phone] Rosalva Stern PA-C Unavailable Charbel Poe Primary Care Provider Unavailabl e Encounter Details Date Type Department Care Team Description 11/13/2015 Wood Planer Report Medical Records [address] [place] [address] Abstract, Provider Social History Tobacco Use Types [...] filedocumented in this encounter Care Teams Manager Rehab Relationship Specialty Start Date End Date Azalia Esposito MD PCP - General Internal Medicine 12/02/1502/20/21 Azalia Esposito MD PCP - General 12/31/1411/30 Charbel Poe [address] [place] [address] PCP - General Internal Medicine 02/21/21 Shaw Cervantes MD [address] [place] [address] Specialist Cardiovascular Disease 02/18/21 Ryan Jenkins MD [address] [place] [address] Specialist Cardiology 02/18/21 Rosalva Stern PA-C [address] [place] [address] Specialist Cardiology 02/18/21 documented as of this encounter
--- OUTSIDE RECORDS SUMMARY | 2024-08-21 12:13 | XMS_ITS | Encounter Summary ---
Author Organization [facility] Address [address] [place] [address] Care Team Providers Care Resp Therapist Name Role Phone Azalia Esposito MD Primary Care Provider Unavailable Azalia Esposito MD Primary Care Provider Unavailable Shaw Cervantes MD Unavailable [phone] Ryan Jenkins MD Unavailable [phone] Rosalva Stern PA-C Unavailable Charbel Poe Primary Care Provider Unavailabl e Encounter Details Date Type Department Care Team Description 07/18/2015 Adjudication Specialist Report Medical Records [address] [place] [id number] [place] [address] Social History Tobacco Use Types Packs/Day Years [...] on filedocumented in this encounter Care Teams Resp Therapist Relationship Specialty Start Date End Date zAalia Esposito MD PCP - General Internal Medicine 12/02/1502/20/21 Azalia Esposito MD PCP - General 12/31/1411/30 Charbel Poe [address] [place] [address] PCP - General Internal Medicine 02/21/21 Shaw Cervantes MD [address] [place] [address] Specialist Cardiovascular Disease 02/18/21 Ryan Jenkins MD [address] [place] [address] Specialist Cardiology 02/18/21 Rosalva Stern PA-C [address] [place] [address] Specialist Cardiology 02/18/21 documented as of this encounter
--- OUTSIDE RECORDS SUMMARY | 2024-08-21 12:13 | XMS_ITS | Encounter Summary ---
Author Organization [facility] Address [address] [place] [address] Care Team Providers Care Irrigation Equipment Installer Name Role Phone Timmy-Azalia Recinos MD Primary Care Provider Unavailable Shaw Cervantes MD Unavailable Ryan Jenkins MD Unavailable [phone] Rosalva Stern PA-C Unavailable Charbel Poe Primary Care Provider Unavailabl e Encounter Details Date Type Department Care Team Description 02/05/2016 Control Valve Technician Report Medical Records [address] [place] [address] Abstract, Provider Social History Tobacco Use Types [...] on filedocumented in this encounter Care Teams Irrigation Equipment Installer Relationship Specialty Start Date End Date Azalia Esposito MD PCP - General Internal Medicine 12/02/1502/20/21 Charbel Poe [address] [address] PCP - General Internal Medicine 02/21/21 Shaw Cervantes MD [address] [place] [address] Specialist Cardiovascular Disease 02/18/21 Ryan Jenkins MD [address] [place] [address] Specialist Cardiology 02/18/21 Rosalva Stern PA-C [address] [place] [address] Specialist Cardiology 02/18/21 documented as of this encounter
--- OUTSIDE RECORDS SUMMARY | 2024-08-21 12:14 | XMS_ITS | Encounter Summary ---
Author Organization [facility] Address [address] [place] [address] Care Team Providers Care Reel Hooker Name Role Phone Shaw Cervantes MD Unavailable [phone] Ryan Jenkins MD Unavailable Rosalva Stern PA-C Unavailable Charbel Poe Primary Care Provider Unavailabl e Encounter Details Date Type Department Care Team Description 06/18/2023 Orders Only [facility] Thoracic Surgery [place] 299 [facility] [address] [place] [address] Agnieszka Zapata MD 299 [facility] [address] [place] [address] Pulmonary nodules (Primary Dx) Social History Tobacco [...] field documented in this encounter Care Teams Reel Hooker Relationship Specialty Start Date End Date Charbel Poe 300 [facility] [address] [place] [address] PCP - General Internal Medicine 02/21/21 Shaw Cervantes MD [address] [place] [address] Specialist Cardiovascular Disease 02/18/21 Ryan Jenkins MD [address] [place] [address] Specialist Cardiology 02/18/21 Rosalva Stern PA-C [address] [place] [address] Specialist Cardiology 02/18/21 documented as of this encounter
--- OUTSIDE RECORDS SUMMARY | 2024-08-21 12:14 | XMS_ITS | Encounter Summary ---
Author Organization [facility] Address [address] [place] [address] Care Team Providers Care Trench Pipe Layer Helper Name Role Phone Shaw Cervantes MD Unavailable [phone] Ryan Jenkins MD Unavailable [phone] Rosalva Stern PA-C Unavailable Charbel Poe Primary Care Provider Unavailabl e Encounter Details Date Type Department Care Team Description 12/21/2022 Deputy Sheriff Chief Report [facility] Medical [facility] Thoracic Surgery [place] 299 [facility] [address] [place] [address] Agnieszka Zapata MD 299 [facility] [address] [place], [place] [phone] Social History Tobacco Use Types Packs/Day Years [...] on filedocumented in this encounter Care Teams Trench Pipe Layer Helper Relationship Specialty Start Date End Date Charbel Poe [address] [place] [address] PCP - General Internal Medicine 02/21/21 Shaw Cervantes MD [address] [place] [address] Specialist Cardiovascular Disease 02/18/21 Ryan Jenkins MD [address] [place] [address] Specialist Cardiology 02/18/21 Rosalva Stern PA-C [address] [place] [address] Specialist Cardiology 02/18/21 documented as of this encounter
--- OUTSIDE RECORDS SUMMARY | 2024-08-21 12:14 | XMS_ITS | Encounter Summary ---
Author Organization [facility] Address [address] [place] [address] Care Team Providers Care Lunch Counter Manager Name Role Phone [place]-Azalia Recinos MD Primary Care Provider Unavailable Shaw Cervantes MD Unavailable [phone] Ryan Jenkins MD Unavailable [phone] Rosalva Stern PA-C Unavailable Charbel Poe Primary Care Provider Unavailthuan e Encounter Details Date Type Department Care Team Description 03/17/2018 Orders Only Pulmonology - [place] [address] [facility] [address] [place] [address] Miky Lockett MD [address] [facility] [address] [place] [address] Stage 3 severe COPD by [...] Procedure Name Priority Date/Time Associated Diagnosis Comments DE NONINVASIVE EAR/PULSE OXIMETRY OVERNIGHT MONITOR Routine 02/14/2018 [...] * OXIMETRY,OVERNITE (02/14/2018) Narrative Authorizing Provider Result Sukhjinder Lockett MD PERFORMABL ES documented in this [...] (HCC) documented in this encounter Care Teams Lunch Counter Manager Relationship Specialty Start Date End Date [place]-Azalia Recinos MD PCP - General Internal Medicine 12/02/1502/20/21 Charbel Poe [address] [address] PCP - General Internal Medicine 02/21/21 Shaw Cervantes MD [address] [facility] [address] [place] [address] Specialist Cardiovascular Disease 02/18/21 Ryan Jenkins MD 300 [facility] [address] [place] [address] Specialist Cardiology 02/18/21 Rosalva Stern PA-C 300 [facility] [address] [place] [address] Specialist Cardiology 02/18/21 documented as of this encounter
--- OUTSIDE RECORDS SUMMARY | 2024-08-21 12:14 | XMS_ITS | Encounter Summary ---
Author Organization [facility] Address [address] [place] [address] Care Team Providers Care Language Therapist Name Role Phone Azalia Esposito MD Primary Care Provider Unavailable Shaw Cervantes MD Unavailable [phone] Ryan Jenkins MD Unavailable [phone] Rosalva Stern PA-C Unavailable Charbel Poe Primary Care Provider Unavailabl e Encounter Details Date Type Department Care Team Description 02/09/2017 Manager Workers Compensation Report Medical Records [address] [place] [address] Social History Tobacco Use Types Packs/Day Years [...] on filedocumented in this encounter Care Teams Language Therapist Relationship Specialty Start Date End Date Azalia Esposito MD PCP - General Internal Medicine 12/02/1502/20/21 Charbel Poe [address] [place] [address] PCP - General Internal Medicine 02/21/21 Shaw Cervantes MD [address] [place] [address] Specialist Cardiovascular Disease 02/18/21 Ryan Jenkins MD [address] [place] [address] Specialist Cardiology 02/18/21 Rosalva Stern PA-C [address] [place] [address] Specialist Cardiology 02/18/21 documented as of this encounter
--- OUTSIDE RECORDS SUMMARY | 2024-08-21 12:14 | XMS_ITS | Encounter Summary ---
Author Organization [facility] Address [address] [place] [address] Care Team Providers Care Industrial Roofer Helper Name Role Phone Timmy-Azalia Recinos MD Primary Care Provider Unavailable Shaw Cervantes MD Unavailable [phone] Ryan Jenkins MD Unavailable [phone] Rosalva Stern PA-C Unavailable Charbel Poe Primary Care Provider Unavailabl e Encounter Details Date Type Department Care Team Description 09/14/2018 Business Doc Medical Records [address] [place] [address] Abstract, Provider Social History Tobacco Use Types [...] on filedocumented in this encounter Care Teams Industrial Roofer Helper Relationship Specialty Start Date End Date Azalia Esposito MD PCP - General Internal Medicine 12/02/1502/20/21 Charbel Poe [address] [address] PCP - General Internal Medicine 02/21/21 Shaw Cervantes MD [address] [place] [address] Specialist Cardiovascular Disease 02/18/21 Ryan Jenkins MD [address] [place] [address] Specialist Cardiology 02/18/21 Rosalva Stern PA-C [address] [place] [address] Specialist Cardiology 02/18/21 documented as of this encounter
--- OUTSIDE RECORDS SUMMARY | 2024-08-21 12:14 | XMS_ITS | Encounter Summary ---
Author Organization [facility] Address [address] [place] [address] Care Team Providers Care Preparation Supervisor Canning Name Role Phone [place]-Azalia Recinos MD Primary Care Provider Unavailable Shaw Cervantes MD Unavailable [phone] Ryan Jenkins MD Unavailable [phone] Rosalva Stern PA-C Unavailable Charbel Poe Primary Care Provider Unavailabl e Reason for Visit * Reason Onset Date Comments REFERRAL 08/31/2016 Gastro Encounter Details Date Type Department Care Team Description 08/31/2016 Telephone Gastroenterology - [address] [id number] Kirit Recio MD REFERRAL (Gastro) Social History Tobacco Use Types Packs/Day Years [...] encounter Miscellaneous Notes * Telephone Encounter - Tita Velásquez - 08/31/2016 4:20 PM EDT Patient was referred to Gastro for Screening CN. Per pt is not due til 2020. Please see Tel Enc 08/18/16. Removing patient from the referral report. Just an fyi. documented in this encounter Plan of Treatment Not on file documented as of this encounter Visit Diagnoses Not on filedocumented in this encounter Care Teams Preparation Supervisor Canning Relationship Specialty Start Date End Date [place]-Azalia Recinos MD PCP - General Internal Medicine 12/02/1502/20/21 Charbel Poe [address] [place] [address] PCP - General Internal Medicine 02/21/21 Shaw Cervantes MD [address] [place] [address] Specialist Cardiovascular Disease 02/18/21 Ryan Jenkins MD [address] [place] [address] Specialist Cardiology 02/18/21 Rosalva Stern PA-C [address] [place] [address] Specialist Cardiology 02/18/21 documented as of this encounter
--- OUTSIDE RECORDS SUMMARY | 2024-08-21 12:14 | XMS_ITS | Encounter Summary ---
Author Organization [facility] Address [address] [place] [address] Care Team Providers Care Team Otr Truck Driver Name Role Phone [place]-Azalia Recinos MD Primary Care Provider Unavailable Shaw Cervantes MD Unavailable [phone] Ryan Jenkins MD Unavailable [phone] Rosalva Stern PA-C Unavailable Charbel Poe Primary Care Provider Unavailabl e Reason for Referral * EXTERNAL (Priority) - Authorized/Booked Specialty Diagnoses / Procedures Referred By Contac t Referred To Contact Pulmonology Procedures REFERRAL TO PULMONOLOGY Angel Shay PA-C [address] [place] [address] Calos Almeida MD [address] [place] [id number] Referral ID Status Reason Start Date Expiration Date V isits Requested Visits Authorized SEE NOTE Authorized/B ooked 11/27/2016 03/11/2017 1 1 Encounter Details Date Type Department Care Team Description 11/24/2016 Telephone Adult Medicine - [place] [address] [place] [address] Angel Shay PA-C Social History Tobacco Use [...] on filedocumented in this encounter Care Teams Team Otr Truck Driver Relationship Specialty Start Date End Date [place]-Azalia Recinos MD PCP - General Internal Medicine 12/02/1502/20/21 Charbel Poe 300 [facility] [address] [place] [address] PCP - General Internal Medicine 02/21/21 Shaw Cervantes MD [address] [place] [address] Specialist Cardiovascular Disease 02/18/21 Ryan Jenkins MD [address] [place] [address] Specialist Cardiology 02/18/21 Rosalva Stern PA-C 300 [facility] [address] [place] [address] Specialist Cardiology 02/18/21 documented as of this encounter
--- OUTSIDE RECORDS SUMMARY | 2024-08-21 12:14 | XMS_ITS | Encounter Summary ---
Author Organization [facility] Address [address] [place] [address] Care Team Providers Care Parts Sales Counterperson Name Role Phone Timmy-Azalia Recinos MD Primary Care Provider Unavailable Shaw Cervantes MD Unavailable [phone] Ryan Jenkins MD Unavailable [phone] Rosalva Stern PA-C Unavailable Chrabel Poe Primary Care Provider Unavailabl e Encounter Details Date Type Department Care Team Description 03/11/2020 Burial Agent Report Medical Records [address] [place] [address] Rosalva Stern PA-C [address] [place] [phone] Social History Tobacco Use Types Packs/Day Years [...] on filedocumented in this encounter Care Teams Parts Sales Counterperson Relationship Specialty Start Date End Date Azalia Esposito MD PCP - General Internal Medicine 12/02/1502/20/21 Charbel Poe [address] [address] PCP - General Internal Medicine 02/21/21 Shaw Cervantes MD [address] [place] [address] Specialist Cardiovascular Disease 02/18/21 Ryan Jenkins MD [address] [place] [address] Specialist Cardiology 02/18/21 Rosalva Stern PA-C [address] [place] [address] Specialist Cardiology 02/18/21 documented as of this encounter
--- OUTSIDE RECORDS SUMMARY | 2024-08-21 12:14 | XMS_ITS | Encounter Summary ---
Author Organization [facility] Address [address] [place] [address] Care Team Providers Care Car Head Liner Installer Name Role Phone Azalia Esposito MD Primary Care Provider Unavailable Shaw Cervantes MD Unavailable Ryan Jenkins MD Unavailable [phone] Rosalva Stern PA-C Unavailable Charbel Poe Primary Care Provider Unavailabl e Reason for Referral * EXTERNAL (Routine) - Authorized/Booked Specialty Diagnoses / Procedures Referred By Contmima t Referred To Contact Ophthalmology Procedures REFERRAL TO EXTERNAL OPHTHALMOLOGY Azalia Esposito MD [address] [place] [address] [facility] [address] [place] [address] Referral ID Status Reason Start Date Expiration Date V isits Requested Visits Authorized SEE NOTE Authorized/B ooked 09/22/2017 12/23/2017 1 1 Encounter Details Date Type Department Care Team Description 09/22/2017 Telephone [address] [address] Velia Eller, JASE Social History Tobacco Use [...] callers name?Zohreh from DR Warner's office in [place] Callers relationship to patient? 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 Caller offered to speak with the nurse for assistance: YES Response: Patient offered to speak with nurse for assistance and patient agreed. Message forwarded to nurse. documented in this encounter Plan of Treatment Not on file documented as of this encounter Visit Diagnoses Not on filedocumented in this encounter Care Teams Car Head Liner Installer Relationship Specialty Start Date End Date Aurora-Azalia Recinos MD PCP - General Internal Medicine 12/02/1502/20/21 Charbel Poe 300 [facility] [address] [place] [address] PCP - General Internal Medicine 02/21/21 Shaw Cervantes MD 2 Medical [facility] [address] [place] [address] Specialist Cardiovascular Disease 02/18/21 Ryan Jenkins MD [address] [place] [address] Specialist Cardiology 02/18/21 Rosalva Stern PA-C 300 [facility] [address] [place] [address] Specialist Cardiology 02/18/21 documented as of this encounter
--- OUTSIDE RECORDS SUMMARY | 2024-08-21 12:14 | XMS_ITS | Encounter Summary ---
Author Organization [facility] Address [address] [place] [address] Care Team Providers Care Rn Lactation Name Role Phone Shaw Cervantes MD Unavailable [phone] Ryan Jenkins MD Unavailable [phone] Rosalva Stern PA-C Unavailable Charbel Poe Primary Care Provider Unavailabl e Reason for Visit * Reason Onset Date Comments E-prescribe Rx Request 06/10/2021 incoming Fax [facility] Pharmacy Lopressor Encounter Details Date Type Department Care Team Description 06/10/2021 Refill Cardio PVC POC 154 300 [facility] [address] [place] [address] Rosalva Stern PA-C [address] [place] [address] [id number] E-prescribe Rx Request (incoming Fax [facility] Pharmacy Lopressor ) Social History Tobacco [...] filedocumented in this encounter Care Teams Rn Lactation Relationship Specialty Start Date End Date Charbel Poe [address] [place] [address] PCP - General Internal Medicine 02/21/21 Shaw Cervantes MD [address] [place] [address] Specialist Cardiovascular Disease 02/18/21 Ryan Jenkins MD [address] [place] [address] Specialist Cardiology 02/18/21 Rosalva Stern PA-C 300 [facility] [address] [place] [address] Specialist Cardiology 02/18/21 documented as of this encounter
--- OUTSIDE RECORDS SUMMARY | 2024-08-21 12:14 | XMS_ITS | Encounter Summary ---
Author Organization [facility] Address [address] [place] [address] Care Team Providers Care Hydraulic Plumber Name Role Phone Shaw Cervantes MD Unavailable [phone] Ryan Jenkins MD Unavailable [phone] Rosalva Stern PA-C Unavailable Charbel Poe Primary Care Provider Unavailabl e Encounter Details Date Type Department Care Team Description 12/18/2022 Hat Blocking Machine Operator Report Medical Records [address] [place] [address] Agnieszka Zapata MD [address] [place] [address] [address] [place] [address] Social History Tobacco Use Types Packs/Day Years [...] on filedocumented in this encounter Care Teams Hydraulic Plumber Relationship Specialty Start Date End Date Charbel Poe 300 [facility] [address] [place] [address] PCP - General Internal Medicine 02/21/21 Shaw Cervantes MD 2 [facility] [address] [place] [address] Specialist Cardiovascular Disease 02/18/21 Ryan Jenkins MD [address] [place] [address] Specialist Cardiology 02/18/21 Rosalva Stern PA-C [address] [place] [address] Specialist Cardiology 02/18/21 documented as of this encounter
--- OUTSIDE RECORDS SUMMARY | 2024-08-21 12:14 | XMS_ITS | Encounter Summary ---
Author Organization [facility] Address [address] [place] [address] Care Team Providers Care Sewing Machine Operator Paper Bags Name Role Phone Azalia Esposito MD Primary Care Provider Unavailable Azalia Esposito MD Primary Care Provider Unavailable Shaw Cervantes MD Unavailable [phone] Ryan Jenkins MD Unavailable [phone] Rosalva Stern PA-C Unavailable Charbel Poe Primary Care Provider Unavailabl e Reason for Visit * Reason Onset Date Comments Gear Keeper Feedback 01/23/2015 Pulmonology Encounter Details Date Type Department Care Team Description 01/23/2015 Telephone [address] [place] [id number] Kb Stack MD Gear Keeper Feedback (Pulmonology) Social History Tobacco Use Types [...] You have placed a referral to see [facility] Pulmonology. Unfortunately, their office does not acceptthis [...] on filedocumented in this encounter Care Teams Sewing Machine Operator Paper Bags Relationship Specialty Start Date End Date Timmy-Azalia Recinos MD PCP - General Internal Medicine 12/02/1502/20/21 Timmy-Azalia Recinos MD PCP - General 12/31/1411/30 Charbel Poe 300 [facility] [address] [place] [address] PCP - General Internal Medicine 02/21/21 Shaw Cervantes MD [address] [place] [address] Specialist Cardiovascular Disease 02/18/21 Ryan Jenkins MD [address] [place] [address] Specialist Cardiology 02/18/21 Rosalva Stern PA-C 300 [facility] [address] [place] [address] Specialist Cardiology 02/18/21 documented as of this encounter
--- OUTSIDE RECORDS SUMMARY | 2024-08-21 12:14 | XMS_ITS | Encounter Summary ---
Author Organization [facility] Address [address] [place] [address] Care Team Providers Care Airport Shuttle Driver Name Role Phone Timmy-Azalia Recinos MD Primary Care Provider Unavailable Shaw Cervantes MD Unavailable [phone] Ryan Jenkins MD Unavailable [phone] Rosalva Stern PA-C Unavailable Charbel Poe Primary Care Provider Unavailabl e Encounter Details Date Type Department Care Team Description 01/01/2020 Golf Club Facer Report Medical Records [address] [place] [address] Shaw Cervantes MD [address] [place] [address] Social History Tobacco Use Types Packs/Day Years [...] on filedocumented in this encounter Care Teams Airport Shuttle Driver Relationship Specialty Start Date End Date Azalia Esposito MD PCP - General Internal Medicine 12/02/1502/20/21 Charbel Poe [address] [place] [address] PCP - General Internal Medicine 02/21/21 Shaw Cervantes MD [address] [place] [address] Specialist Cardiovascular Disease 02/18/21 Ryan Jenkins MD [address] [place] [address] Specialist Cardiology 02/18/21 Rosalva Stern PA-C [address] [place] [address] Specialist Cardiology 02/18/21 documented as of this encounter
--- OUTSIDE RECORDS SUMMARY | 2024-08-21 12:14 | XMS_ITS | Encounter Summary ---
Author Organization [facility] Address [address] [place] [address] Care Team Providers Care Lease Purchase Truck Driver Name Role Phone Timmy-Azalia Recinos MD Primary Care Provider Unavailable Shaw Cervantes MD Unavailable [phone] Ryan Jenkins MD Unavailable [phone] Rosalva Stern PA-C Unavailable Charbel Poe Primary Care Provider Unavailabl e Encounter Details Date Type Department Care Team Description 02/07/2020 [facility] Medical Records [address] [place] [address] Ryan Jenkins MD [address] [address] Social History Tobacco Use Types Packs/Day Years [...] on filedocumented in this encounter Care Teams Lease Purchase Truck Driver Relationship Specialty Start Date End Date Azalia Esposito MD PCP - General Internal Medicine 12/02/1502/20/21 Charbel Poe [address] [address] PCP - General Internal Medicine 02/21/21 Shaw Cervantes MD [address] [place] [address] Specialist Cardiovascular Disease 02/18/21 Ryan Jenkins MD [address] [place] [address] Specialist Cardiology 02/18/21 Rosalva Stern PA-C [address] [place] [address] Specialist Cardiology 02/18/21 documented as of this encounter
--- OUTSIDE RECORDS SUMMARY | 2024-08-21 12:14 | XMS_ITS | Encounter Summary ---
Author Organization [facility] Address [address] [place] [address] Care Team Providers Care Vehicle Damage Appraiser Name Role Phone Shaw Cervantes MD Unavailable Ryan Jenkins MD Unavailable Rosalva Stern PA-C Unavailable Charbel Poe Primary Care Provider Unavailabl e Encounter Details Date Type Department Care Team Description 01/30/2022 Material Reprocessing Associate Report Medical Records [address] [place] [address] Agnieszka Zapata MD [address] [place] [address] [address] [place] [address] Social History Tobacco Use Types Packs/Day Years [...] on filedocumented in this encounter Care Teams Vehicle Damage Appraiser Relationship Specialty Start Date End Date Charbel Poe 300 [facility] [address] [place] [address] PCP - General Internal Medicine 02/21/21 Shaw Cervantes MD 2 [facility] [address] [place] [address] Specialist Cardiovascular Disease 02/18/21 Ryan Jenkins MD [address] [place] [address] Specialist Cardiology 02/18/21 Rosalva Stern PA-C [address] [place] [address] Specialist Cardiology 02/18/21 documented as of this encounter
--- OUTSIDE RECORDS SUMMARY | 2024-08-21 12:14 | XMS_ITS | Encounter Summary ---
Author Organization [facility] Address [address] [place] [address] Care Team Providers Care Forge Operator Name Role Phone Wyarno-Azalia Recinos MD Primary Care Provider Unavailable Shaw Cervantes MD Unavailable [phone] Ryan Jenkins MD Unavailable [phone] Rosalva Stern PA-C Unavailable Charbel Poe Primary Care Provider Unavailabl e Encounter Details Date Type Department Care Team Description 05/10/2019 Telephone Adult [address] [address] Laura Rucker PA-C Social History Tobacco Use [...] Reid M.A. - 05/10/2019 1:42 PM EST [phone] (home) [phone] (work) Lvm for pt to return call. [...] in this encounter Care Teams Forge Operator Relationship Specialty Start Date End Date Wyarno-Azalia Recinos MD PCP - General Internal Medicine 12/02/1502/20/21 Charbel Poe 300 [facility] [address] [place] [address] PCP - General Internal Medicine 02/21/21 Shaw Cervantes MD [address] [place] [address] Specialist Cardiovascular Disease 02/18/21 Ryan Jenkins MD [address] [place] [address] Specialist Cardiology 02/18/21 Rosalva Stern PA-C [address] [place] [address] Specialist Cardiology 02/18/21 documented as of this encounter
--- OUTSIDE RECORDS SUMMARY | 2024-08-21 12:14 | XMS_ITS | Encounter Summary ---
Author Organization [facility] Address [address] [place] [address] Care Team Providers Care Section Chief Name Role Phone Timmy-Azalia Recinos MD Primary Care Provider Unavailable Shaw Cervantes MD Unavailable [phone] Ryan Jenkins MD Unavailable [phone] Rosalva Stern PA-C Unavailable Charbel Poe Primary Care Provider Unavailabl e Encounter Details Date Type Department Care Team Description 11/18/2019 [facility] Medical Records [address] [place] [address] Jose Haile MD Social History Tobacco Use [...] on filedocumented in this encounter Care Teams Section Chief Relationship Specialty Start Date End Date Azalia Esposito MD PCP - General Internal Medicine 12/02/1502/20/21 Charbel Poe [address] [place] [address] PCP - General Internal Medicine 02/21/21 Shaw Cervantes MD 2 Medical [facility] [address] [place], [place] [address] Specialist Cardiovascular Disease 02/18/21 Ryan Jenkins MD [address] [place] [address] Specialist Cardiology 02/18/21 Rosalva Stern PA-C [address] [place] [address] Specialist Cardiology 02/18/21 documented as of this encounter
--- OUTSIDE RECORDS SUMMARY | 2024-08-21 12:14 | XMS_ITS | Encounter Summary ---
Author Organization [facility] Address [address] [place] [address] Care Team Providers Care Respiratory Therapy Instructor Name Role Phone Timmy-Azalia Recinos MD Primary Care Provider Unavailable Shaw Cervantes MD Unavailable [phone] Ryan Jenkins MD Unavailable [phone] Rosalva Stern PA-C Unavailable Charbel Poe Primary Care Provider Unavailabl e Encounter Details Date Type Department Care Team Description 11/22/2017 Rf Engineer Report Medical Records [address] [place] [id number] [place] [address] Social History Tobacco Use Types Packs/Day Years [...] on filedocumented in this encounter Care Teams Respiratory Therapy Instructor Relationship Specialty Start Date End Date Azalia Esposito MD PCP - General Internal Medicine 12/02/1502/20/21 Charbel Poe [address] [address] PCP - General Internal Medicine 02/21/21 Shaw Cervantes MD [address] [place] [address] Specialist Cardiovascular Disease 02/18/21 Ryan Jenkins MD [address] [place] [address] Specialist Cardiology 02/18/21 Rosalva Stern PA-C [address] [place] [address] Specialist Cardiology 02/18/21 documented as of this encounter
--- OUTSIDE RECORDS SUMMARY | 2024-08-21 12:14 | XMS_ITS | Clinical Summary ---
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 Admitted to [facility]. Colonoscopy 06/23. Resolved Problems Problem Noted Date [...] VACCINE Completed 09/13/2018, 09/13/2017, 05/14/2011 Care Teams Sales Product Manager Relationship Specialty Start Date End Date Charbel Poe [address] [place] [address] PCP - General Internal Medicine 02/21/21 Shaw Cervantes MD [address] [place] [address] Specialist Cardiovascular Disease 02/18/21 Ryan Jenkins MD [address] [place] [address] Specialist Cardiology 02/18/21 Rosalva Stern PA-C [address] [place] [address] Specialist Cardiology 02/18/21
--- OUTSIDE RECORDS SUMMARY | 2024-08-21 12:14 | XMS_ITS | Encounter Summary ---
Author Organization [facility] Address [address] [place] [address] Care Team Providers Care Cafe Aide Name Role Phone Moxee-Azalia Recinos MD Primary Care Provider Unavailable Shaw Cervantes MD Unavailable [phone] Ryan Jenkins MD Unavailable [phone] Rosalva Stern PA-C Unavailable Charbel Poe Primary Care Provider Unavailthuna e Encounter Details Date Type Department Care Team Description 08/20/2020 Refill Cardio PVC POC 154 300 [facility] [address] [place] [address] Rosalva Stern PA-C [address] [place] [address] [phone] Social History Tobacco Use Types Packs/Day Years Used Date Smoking Tobacco: Every Day Cigarettes 0.3 42 Smokeless Tobacco: Never Alcohol Use Standard Drinks/Week Comments Yes 0 (1 standard drink = 0.6 oz pur e alcohol) Sex Assigned at Date Recorded Not on file documented as of this encounter Miscellaneous Notes * Telephone Encounter - Michelle Maloney C.M.A. - 08/20/2020 11:06 AM EST Incoming erx from [facility] for mag ox qd. Rx renewed. Last level from December 2019, 2.3 documented in this encounter Plan of Treatment Not on file documented as of this encounter Visit Diagnoses Not on filedocumented in this encounter Care Teams Cafe Aide Relationship Specialty Start Date End Date Moxee-Azalia Recinos MD PCP - General Internal Medicine 12/02/1502/20/21 Charbel Poe [address] [place] [address] PCP - General Internal Medicine 02/21/21 Shaw Cervantes MD [address] [place] [address] Specialist Cardiovascular Disease 02/18/21 Ryan Jenkins MD [address] [place] [address] Specialist Cardiology 02/18/21 Rosalva Stern PA-C [address] [place] [address] Specialist Cardiology 02/18/21 documented as of this encounter
--- OUTSIDE RECORDS SUMMARY | 2024-08-21 12:14 | XMS_ITS | Encounter Summary ---
Author Organization [facility] Address [address] [place] [address] Care Team Providers Care Cardiac Nurse Name Role Phone Timmy-Azalia Recinos MD Primary Care Provider Unavailable Shaw Cervantes MD Unavailable [phone] Ryan Jenkins MD Unavailable [phone] Rosalva Stern PA-C Unavailable Charbel Poe Primary Care Provider Unavailabl e Encounter Details Date Type Department Care Team Description 12/06/2019 [place] [employer] Net Or Trap Report Medical Records [address] [place] [address] Shaw Cervantes MD [address] [place] [address] Social History Tobacco Use Types Packs/Day Years [...] on filedocumented in this encounter Care Teams Cardiac Nurse Relationship Specialty Start Date End Date Azalia Esposito MD PCP - General Internal Medicine 12/02/1502/20/21 Charbel Poe [address] [place] [address] PCP - General Internal Medicine 02/21/21 Shaw Cervantes MD [address] [place] [address] Specialist Cardiovascular Disease 02/18/21 Ryan Jenkins MD [address] [place] [address] Specialist Cardiology 02/18/21 Rosalva Stern PA-C [address] [place] [address] Specialist Cardiology 02/18/21 documented as of this encounter
--- OUTSIDE RECORDS SUMMARY | 2024-08-21 12:15 | XMS_ITS | Encounter Summary ---
Author Organization [facility] Address [address] [place] [address] Care Team Providers Care Rotary Screen Printing Machine Operator Name Role Phone Azalia Esposito MD Primary Care Provider Unavailable Shaw Cervantes MD Unavailable [phone] Ryan Jenkins MD Unavailable [phone] Rosalva Stern PA-C Unavailable Charbel Poe Primary Care Provider Unavailabl e Reason for Visit * Reason Onset Date Comments Faxed Order 10/26/2019 Encounter Details Date Type Department Care Team Description 10/26/2019 Telephone Adult Medicine - [address] [address] Azalia Esposito MD Faxed Order Social History [...] order to Roxanna Lepe at fax # [phone] Order #[id number] documented in this encounter Plan of Treatment Not on file documented as of this encounter Visit Diagnoses Not on filedocumented in this encounter Care Teams Rotary Screen Printing Machine Operator Relationship Specialty Start Date End Date Austin-Azalia Recinos MD PCP - General Internal Medicine 12/02/1502/20/21 Charbel Poe [address] [place] [address] PCP - General Internal Medicine 02/21/21 Shaw Cervantes MD [address] [place] [address] Specialist Cardiovascular Disease 02/18/21 Ryan Jenkins MD [address] [place] [address] Specialist Cardiology 02/18/21 Rosalva Stern PA-C [address] [place] [address] Specialist Cardiology 02/18/21 documented as of this encounter
--- OUTSIDE RECORDS SUMMARY | 2024-08-21 12:15 | XMS_ITS | Encounter Summary ---
Author Organization [facility] Address [address] [place] [address] Care Team Providers Care Consumer Experience Consultant Name Role Phone Timmy-Azalia Recinos MD Primary Care Provider Unavailable Shaw Cervantes MD Unavailable [phone] Ryan Jenkins MD Unavailable [phone] Rosalva Stern PA-C Unavailable Charbel Poe Primary Care Provider Unavailabl e Encounter Details Date Type Department Care Team Description 10/27/2019 Chemical Research Engineer Report Medical Records [address] [place] [address] Shaw Cervantes MD [address] [place] [address] Social History Tobacco Use Types Packs/Day Years [...] on filedocumented in this encounter Care Teams Consumer Experience Consultant Relationship Specialty Start Date End Date Azalia Esposito MD PCP - General Internal Medicine 12/02/1502/20/21 Charbel Poe [address] [place] [address] PCP - General Internal Medicine 02/21/21 Shaw Cervantes MD [address] [place] [address] Specialist Cardiovascular Disease 02/18/21 Ryan Jenkins MD [address] [place] [address] Specialist Cardiology 02/18/21 Rosalva Stern PA-C [address] [place] [address] Specialist Cardiology 02/18/21 documented as of this encounter
--- OUTSIDE RECORDS SUMMARY | 2024-08-21 12:15 | XMS_ITS | Encounter Summary ---
Author Organization [facility] Address [address] [place] [address] Care Team Providers Care Cyber Instructor Name Role Phone Timmy-Azalia Recinos MD Primary Care Provider Unavailable Shaw Cervantes MD Unavailable [phone] Ryan Jenkins MD Unavailable [phone] Rosalva Stern PA-C Unavailable Charbel Poe Primary Care Provider Unavailabl e Encounter Details Date Type Department Care Team Description 11/08/2019 [facility] Medical Records [address] [place] [id number] [place] [address] Social History Tobacco Use Types Packs/Day Years [...] on filedocumented in this encounter Care Teams Cyber Instructor Relationship Specialty Start Date End Date Azalia Esposito MD PCP - General Internal Medicine 12/02/1502/20/21 Charbel Poe [address] [place] [address] PCP - General Internal Medicine 02/21/21 Shaw Cervantes MD Medical [facility] [address] [place], [place] [address] Specialist Cardiovascular Disease 02/18/21 Ryan Jenkins MD [address] [place] [address] Specialist Cardiology 02/18/21 Rosalva Stern PA-C [address] [place] [address] Specialist Cardiology 02/18/21 documented as of this encounter
--- OUTSIDE RECORDS SUMMARY | 2024-08-21 12:15 | XMS_ITS | Encounter Summary ---
Author Organization [facility] Address [address] [place] [address] Care Team Providers Care Tissue Rewinder Name Role Phone Timmy-Azalia Recinos MD Primary Care Provider Unavailable Shaw Cervantes MD Unavailable [phone] Ryan Jenkins MD Unavailable [phone] Rosalva Stern PA-C Unavailable Charbel Poe Primary Care Provider Unavailabl e Encounter Details Date Type Department Care Team Description 10/05/2019 Fulfillment Specialist Report Medical Records [address] [place] [address] Shaw Cervantes MD [address] [place] [address] Social History Tobacco Use Types Packs/Day Years [...] on filedocumented in this encounter Care Teams Tissue Rewinder Relationship Specialty Start Date End Date Azalia Esposito MD PCP - General Internal Medicine 12/02/1502/20/21 Charbel Poe [address] [place] [address] PCP - General Internal Medicine 02/21/21 Shaw Cervantes MD [address] [place] [address] Specialist Cardiovascular Disease 02/18/21 Ryan Jenkins MD [address] [place] [address] Specialist Cardiology 02/18/21 Rosalva Stern PA-C [address] [place] [address] Specialist Cardiology 02/18/21 documented as of this encounter
--- OUTSIDE RECORDS SUMMARY | 2024-08-21 12:15 | XMS_ITS | Encounter Summary ---
Author Organization [facility] Address [address] [place] [address] Care Team Providers Care Production Cell Leader Name Role Phone Azalia Esposito MD Primary Care Provider Unavailable Shaw Cervantes MD Unavailable [phone] Ryan Jenkins MD Unavailable [phone] Rosalva Stern PA-C Unavailable Charbel Poe Primary Care Provider Unavailabl e Reason for Visit * Reason Onset Date Comments VNA Call 10/13/2019 Encounter Details Date Type Department Care Team Description 10/13/2019 Telephone Adult Medicine - [address] [address] Azalia Esposito MD VNA Call Social History [...] encounter Miscellaneous Notes * Telephone Encounter - Sudarshan Abad - 10/13/2019 9:11 AM EDT VNA CALL Which [facility]NA office is calling? Roxanna Lepe Full name of caller: Regina The caller is A nurse Is the caller at the patients home?: NO Reason for call: Regina will be decreasing the patient's frequency to 2 times a week and [place] will be discharging the patient on 10/26/19. Does caller need an urgent call back? NO Was CONTACT Telephone # obtained above?: YES Fax #: documented in this encounter Plan of Treatment Not on file documented as of this encounter Visit Diagnoses Not on filedocumented in this encounter Care Teams Production Cell Leader Relationship Specialty Start Date End Date [place]-Azalia Recinos MD PCP - General Internal Medicine 12/02/1502/20/21 Charbel Poe 300 [facility] [address] [place] [address] PCP - General Internal Medicine 02/21/21 Shaw Cervantes MD [address] [place] [address] Specialist Cardiovascular Disease 02/18/21 Ryan Jenkins MD 300 [facility] [address] [place] [address] Specialist Cardiology 02/18/21 Rosalva Stern PA-C 300 [facility] [address] [place] [address] Specialist Cardiology 02/18/21 documented as of this encounter
--- OUTSIDE RECORDS SUMMARY | 2024-08-21 12:15 | XMS_ITS | Encounter Summary ---
Author Organization [facility] Address [address] [place] [address] Care Team Providers Care Crib Attendant Name Role Phone Azalia Esposito MD Primary Care Provider Unavailable Shaw Cervantes MD Unavailable [phone] Ryan Jenkins MD Unavailable [phone] Rosalva Stern PA-C Unavailable Charbel Poe Primary Care Provider Unavailabl e Reason for Visit * Reason Onset Date Comments Faxed Order 10/10/2019 Encounter Details Date Type Department Care Team Description 10/10/2019 Telephone Adult [address] [id number] Azalia Esposito MD Faxed Order Social History [...] review, sign, date, and fax back to [phone]. Order #[id number] * Telephone Encounter - Joanna Moore - 10/13/2019 11:39 AM EDT Faxed order received from Roxanna Lepe. Please review, sign, date, and fax back to [phone]. Order #[id number] * Telephone Encounter - Natalia Almeida - 10/10/2019 9:53 AM EDT Orders from Roxanna Lepe to be signed and faxed back to [phone] . documented in this encounter Plan of Treatment Not on file documented as of this encounter Visit Diagnoses Not on filedocumented in this encounter Care Teams Crib Attendant Relationship Specialty Start Date End Date [place]-Azalia Recinos MD PCP - General Internal Medicine 12/02/1502/20/21 Charbel Poe [address] [facility] [address] [place] [address] PCP - General Internal Medicine 02/21/21 Shaw Cervantes MD [address] [facility] [address] [place] [address] Specialist Cardiovascular Disease 02/18/21 Ryan Jenkins MD [address] [facility] [address] [place] [address] Specialist Cardiology 02/18/21 Rosalva Stern PA-C [address] [facility] [address] [place] [address] Specialist Cardiology 02/18/21 documented as of this encounter
== END 2024-08-21 11:28 | disposition home or self-care (01) ==
LOC: HO.ACS 10:49
PROVIDERS: PCP Internal Medicine; Visit Provider Internal Medicine
DX: Z79.01 Long term (current) use of anticoagulants (principal)

== ENCOUNTER → 2024-08-21 10:49 | Outpatient (BNVA) | payer MEDICARE, SELFPAY | PROVIDERS: PCP Internal Medicine; Visit Provider Internal Medicine | DX: I48.0 Paroxysmal atrial fibrillation (principal); Z79.01 Long term (current) use of anticoagulants; Z51.81 Encounter for therapeutic drug level monitoring | CPT/HCPCS: 85610; 99211 ==

== ENCOUNTER 2024-08-25 12:05 | Outpatient (REF) | payer MEDICARE, SELFPAY ==
[2024-08-25 12:27] LABS: MANUAL DIFF FLAG NO
[2024-08-25 12:42] LABS: Basophils Absolute Auto 0.1 X10*3/uL (0.0-0.2); Basophils Percent Auto 0.5 % (0-2); Eosinophils Absolute Auto 0.4 X10*3/uL (0.0-0.4); Eosinophils Percent Auto 2.3 % (0-4); Hematocrit 28.2 % (42.0-52.0); Hemoglobin 8.3 g/dl (14.0-18.0); Imm Gran Abs Auto 0.17 X10*3/uL (0.00-0.03); Imm Gran Pct Auto 1.1 % (0.0-0.4); Lymphocytes Absolute Auto 2.3 X10*3/uL (1.2-4.9); Lymphocytes Percent Auto 14.7 % (20-40); Mean Corpuscular HGB Conc 29.4 g/dl (31.0-36.0); Mean Corpuscular Hemoglobin 28.6 pg (27.0-33.0); Mean Corpuscular Volume 97.2 fL (80.0-98.0); Mean Platelet Volume 10.8 fL (9.4-12.4); Monocytes Absolute Auto 1.2 X10*3/uL (0.1-1.2); Monocytes Percent Auto 7.9 % (2-11); Neutrophils Absolute Auto 11.2 x10*3/uL (2.0-8.3); Neutrophils Percent Auto 73.5 % (45-73); Platelet Count 294 X10*3/uL (160-400); Red Cell Distribution Width 15.2 % (11.0-16.0); White Blood Count 15.3 X10*3/uL (4.8-10.8)
--- OUTSIDE RECORDS SUMMARY | 2024-08-25 13:47 | XMS_ITS | Clinical Summary ---
Author Organization [facility] Address [address] [place] [address] Care Team Providers Care Albacore Fishing Boat Crewman Name Role Phone Charbel Poe MD Primary Care Provider [phone] Surgical History Surgery Date Site/Laterality Comments OTHER SURGICAL HISTORY PROCEDURE: DENIES PREVIOUS SURGERY COLONOSCOPY 07/09/2009 PROCEDURE: HISTORICAL COLONOSCOPY; COMMENT: [facility]. Diverticulosis. UPPER GASTROINTESTINAL ENDOSCOPY 07/09/2009 PROCEDURE: DC UPPER GI ENDOSCOPY PERFORMED; COMMENT: [facility], GI bleed. No significant abnormalities. Medical History Medical History Date Comments Iron deficiency anemia 07/16/2009 DX:Iron d eficiency anemia Tobacco abuse 07/16/2009 DX:Tobacco abuse ; COMMENT: Has tried Wellbutrin, Chantix, hypnotherapy, nicotine patch and gum 10/22 - [employer] unable to contact after 5 attempts Diverticulosis, sigmoid 07/16/2009 DX:Diver ticulosis, sigmoid; COMMENT: Lower GI bleed 06/23. Admitted to [facility]. Colonoscopy 06/23. 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 Stack Severe obstructive [...] Documents on File Type Date Recorded Patient Logistical Engineer Expl anation Health Care Decision (hx) 02/08/2020 AD PAZ DIRECTIVE Health Care Decision (hx) 02/08/2020 AD PAZ DIRECTIVE Health Care Decision (hx) 02/08/2020 AD PAZ DIRECTIVE Health Care Decision (hx) 02/08/2020 AD PAZ DIRECTIVE Health Care Decision (hx) 02/08/2020 AD PAZ DIRECTIVE Care Teams Albacore Fishing Boat Crewman Relationship Specialty Start Date End Date Charbel Poe MD [address] [place] [address] [address] [place] [address] PCP - General Internal Medicine 02/21/21
--- OUTSIDE RECORDS SUMMARY | 2024-08-25 13:47 | XMS_ITS | Encounter Summary ---
Author Organization [facility] Address [address] [place] [address] Care Team Providers Care Automobile Damage Appraiser Name Role Phone Azalia Esposito MD Primary Care Provider Unavailable Azalia Esposito MD Primary Care Provider Unavailable Shaw Cervantes MD Unavailable [phone] Ryan Jenkins MD Unavailable [phone] Rosalva Stern PA-C Unavailable Charbel Poe Primary Care Provider Unavailabl e Encounter Details Date Type Department Care Team Description 10/09/2015 Scraper Meat Report Medical Records [address] [place] [address] Dept., [facility] Occupational & Pt Social [...] on filedocumented in this encounter Care Teams Automobile Damage Appraiser Relationship Specialty Start Date End Date Azalia Esposito MD PCP - General Internal Medicine 12/02/1502/20/21 Azalia Esposito MD PCP - General 12/31/1411/30 Charbel Poe [address] [place] [address] PCP - General Internal Medicine 02/21/21 Shaw Cervantes MD [address] [place] [address] Specialist Cardiovascular Disease 02/18/21 Ryan Jenkins MD [address] [place] [address] Specialist Cardiology 02/18/21 Rosalva Stern PA-C [address] [place] [address] Specialist Cardiology 02/18/21 documented as of this encounter
--- OUTSIDE RECORDS SUMMARY | 2024-08-25 13:47 | XMS_ITS | Encounter Summary ---
Author Organization [facility] Address [address] [place] [address] Care Team Providers Care Paper Mill Manager Name Role Phone Timmy-Azalia Recinos MD Primary Care Provider Unavailable Shaw Cervantes MD Unavailable [phone] Ryan Jenkins MD Unavailable Rosalva Stern PA-C Unavailable Charbel Poe Primary Care Provider Unavailabl e Encounter Details Date Type Department Care Team Description 02/05/2016 Sdc Teacher Report Medical Records [address] [place] [address] Abstract, Provider Social History Tobacco Use Types [...] on filedocumented in this encounter Care Teams Paper Mill Manager Relationship Specialty Start Date End Date Azalia Esposito MD PCP - General Internal Medicine 12/02/1502/20/21 Charbel Poe [address] [address] PCP - General Internal Medicine 02/21/21 Shaw Cervantes MD [address] [place] [address] Specialist Cardiovascular Disease 02/18/21 Ryan Jenkins MD [address] [place] [address] Specialist Cardiology 02/18/21 Rosalva Stern PA-C [address] [place] [address] Specialist Cardiology 02/18/21 documented as of this encounter
--- OUTSIDE RECORDS SUMMARY | 2024-08-25 13:47 | XMS_ITS | Encounter Summary ---
Author Organization [facility] Address [address] [place] [address] Care Team Providers Care Wafer Slicer Name Role Phone Sudarshan Deluca Primary Care Provider Unav ailable Shin Núñez MD Primary Care Provider [phone] Azalia Esposito MD Primary Care Provider Unavailable Azalia Esposito MD Primary Care Provider Unavailable Shaw Cervantes MD Unavailable [phone] Ryan Jenkins MD Unavailable [phone] Rosalva Stern PA-C Unavailable Charbel Poe Primary Care Provider Unavailabl e Encounter Details Date Type Department Care Team Description 07/08/2009 Hospital Medical Records [address] [place] [address] Ruperto Louise MD Social History Tobacco Use [...] on filedocumented in this encounter Care Teams Wafer Slicer Relationship Specialty Start Date End Date Sudarshan Deluca PCP - General 05/06/10 12/30/14 Shin Núñez MD [address] [place] [address] PCP - General 07/08/09 05/05/10 Timmy-Azalia Recinos MD [address] [place] [address] PCP - General Internal Medicine 12/02/15 02/20/21 Azalia Esposito MD [address] [place] [address] PCP - General 12/31/14 12/01/15 Charbel Poe [address] [place] [address] PCP - General Internal Medicine 02/21/21 Shaw Cervantes MD [address] [place] [address] Specialist Cardiovascular Disease 02/18/21 Ryan Jenkins MD [address] [place] [address] Specialist Cardiology 02/18/21 Rosalva Stern PA-C [address] [place] [address] Specialist Cardiology 02/18/21 documented as of this encounter
--- OUTSIDE RECORDS SUMMARY | 2024-08-25 13:47 | XMS_ITS | Encounter Summary ---
Author Organization [facility] Address [address] [place] [address] Care Team Providers Care Professor Of Food Biochemistry Name Role Phone Sudarshan Deluca Primary Care Provider Unav ailable Shin Núñez MD Primary Care Provider [phone] Azalia Esposito MD Primary Care Provider Unavailable Azalia Esposito MD Primary Care Provider Unavailable Shaw Cervantes MD Unavailable [phone] Ryan Jenkins MD Unavailable Rosalva Stern PA-C Unavailable Charbel Poe Primary Care Provider Unavailabl e Encounter Details Date Type Department Care Team Description 07/09/2009 Hospital Medical Records [address] [place] [address] Jason Recinos MD Social History Tobacco Use [...] on filedocumented in this encounter Care Teams Professor Of Food Biochemistry Relationship Specialty Start Date End Date Sudarshan Deluca PCP - General 05/06/10 12/30/14 Shin Núñez MD [address] [place] [address] PCP - General 07/08/09 05/05/10 Timmy-Azalia Recinos MD [address] [place] [address] PCP - General Internal Medicine 12/02/15 02/20/21 Azalia Esposito MD [address] [place] [address] PCP - General 12/31/14 12/01/15 Charbel Poe [address] [place] [address] PCP - General Internal Medicine 02/21/21 Shaw Cervantes MD [address] [place] [address] Specialist Cardiovascular Disease 02/18/21 Ryan Jenkins MD [address] [place] [address] Specialist Cardiology 02/18/21 Rosalva Stern PA-C [address] [place] [address] Specialist Cardiology 02/18/21 documented as of this encounter
--- OUTSIDE RECORDS SUMMARY | 2024-08-25 13:47 | XMS_ITS | Encounter Summary ---
Author Organization [facility] Address [address] [place] [address] Care Team Providers Care Claims Manager Name Role Phone Timmy-Azalia Recinos MD Primary Care Provider Unavailable Shaw Cervantes MD Unavailable [phone] Ryan Jenkins MD Unavailable [phone] Rosalva Stern PA-C Unavailable Charbel Poe Primary Care Provider Unavailabl e Encounter Details Date Type Department Care Team Description 01/14/2016 Asphalt Paver Report Medical Records [address] [place] [id number] [place] [address] Social History Tobacco Use Types Packs/Day Years [...] on filedocumented in this encounter Care Teams Claims Manager Relationship Specialty Start Date End Date Azalia Esposito MD PCP - General Internal Medicine 12/02/1502/20/21 Charbel Poe [address] [address] PCP - General Internal Medicine 02/21/21 Shaw Cervantes MD [address] [place] [address] Specialist Cardiovascular Disease 02/18/21 Ryan Jenkins MD [address] [place] [address] Specialist Cardiology 02/18/21 Rosalva Stern PA-C [address] [place] [address] Specialist Cardiology 02/18/21 documented as of this encounter
--- OUTSIDE RECORDS SUMMARY | 2024-08-25 13:48 | XMS_ITS | Encounter Summary ---
Author Organization [facility] Address [address] [place] [address] Care Team Providers Care Platform Worker Name Role Phone Timmy-Azalia Recinos MD Primary Care Provider Unavailable Shaw Cervantes MD Unavailable [phone] Ryan Jenkins MD Unavailable [phone] Rosalva Stern PA-C Unavailable Charbel oPe Primary Care Provider Unavailabl e Encounter Details Date Type Department Care Team Description 11/24/2018 Waterproofer Helper Report Medical Records [address] [place] [id number] [place] [address] Social History Tobacco Use Types Packs/Day Years [...] on filedocumented in this encounter Care Teams Platform Worker Relationship Specialty Start Date End Date Azalia Esposito MD PCP - General Internal Medicine 12/02/1502/20/21 Charbel Poe [address] [address] PCP - General Internal Medicine 02/21/21 Shaw Cervantes MD [address] [place] [address] Specialist Cardiovascular Disease 02/18/21 Ryan Jenkins MD [address] [place] [address] Specialist Cardiology 02/18/21 Rosalva Stern PA-C [address] [place] [address] Specialist Cardiology 02/18/21 documented as of this encounter
--- OUTSIDE RECORDS SUMMARY | 2024-08-25 13:48 | XMS_ITS | Encounter Summary ---
Author Organization [facility] Address [address] [place] [address] Care Team Providers Care Records Technician Name Role Phone Timmy-Azalia Recinos MD Primary Care Provider Unavailable Shaw Cervantes MD Unavailable [phone] Ryan Jenkins MD Unavailable [phone] Rosalva Stern PA-C Unavailable Charbel Poe Primary Care Provider Unavailabl e Encounter Details Date Type Department Care Team Description 09/28/2019 Wage Conciliator Report Medical Records [address] [place] [address] Shaw Cervantes MD [address] [place] [address] Social History Tobacco Use Types Packs/Day Years [...] on filedocumented in this encounter Care Teams Records Technician Relationship Specialty Start Date End Date Azalia Esposito MD PCP - General Internal Medicine 12/02/1502/20/21 Charbel Poe [address] [place] [address] PCP - General Internal Medicine 02/21/21 Shaw Cervantes MD [address] [place] [address] Specialist Cardiovascular Disease 02/18/21 Ryan Jenkins MD [address] [place] [address] Specialist Cardiology 02/18/21 Rosalva Stern PA-C [address] [place] [address] Specialist Cardiology 02/18/21 documented as of this encounter
--- OUTSIDE RECORDS SUMMARY | 2024-08-25 13:48 | XMS_ITS | Encounter Summary ---
Author Organization [facility] Address [address] [place] [address] Care Team Providers Care Process Control Supervisor Name Role Phone Azalia Esposito MD Primary Care Provider Unavailable Azalia Esposito MD Primary Care Provider Unavailable Shaw Cervantes MD Unavailable [phone] Ryan Jenkins MD Unavailable [phone] Rosalva Stern PA-C Unavailable Cahrbel Poe Primary Care Provider Unavailabl e Encounter Details Date Type Department Care Team Description 11/12/2015 Fish Filleter Report Medical Records [address] [place] [address] Abstract, Provider Social History Tobacco Use Types [...] on filedocumented in this encounter Care Teams Process Control Supervisor Relationship Specialty Start Date End Date Azalia Esposito MD PCP - General Internal Medicine 12/02/1502/20/21 Azalia Esposito MD PCP - General 12/31/1411/30 Charbel Poe [address] [place] [address] PCP - General Internal Medicine 02/21/21 Shaw Cervantes MD [address] [place] [address] Specialist Cardiovascular Disease 02/18/21 Ryan Jenkins MD [address] [place] [address] Specialist Cardiology 02/18/21 Rosalva Stern PA-C [address] [place] [address] Specialist Cardiology 02/18/21 documented as of this encounter
--- OUTSIDE RECORDS SUMMARY | 2024-08-25 13:48 | XMS_ITS | Encounter Summary ---
Author Organization [facility] Address [address] [place] [address] Care Team Providers Care Reclamation Worker Name Role Phone [place]-Azalia Recinos MD Primary Care Provider Unavailable Shaw Cervantes MD Unavailable [phone] Ryan Jenkins MD Unavailable [phone] Rosalva Stern PA-C Unavailable Charbel Poe Primary Care Provider Unavailabl e Reason for Referral * EXTERNAL (Priority) - Authorized/Booked Specialty Diagnoses / Procedures Referred By Contac t Referred To Contact Pulmonology Procedures REFERRAL TO PULMONOLOGY Angel Shay PA-C [address] [place] [address] Calos Almeida MD [address] [place] [id number] Referral ID Status Reason Start Date Expiration Date V isits Requested Visits Authorized SEE NOTE Authorized/B ooked 11/27/2016 03/11/2017 1 1 Encounter Details Date Type Department Care Team Description 11/24/2016 Telephone Adult Medicine - [place] [address] [place] [address] Angel Shay PA-C Social History Tobacco Use [...] on filedocumented in this encounter Care Teams Reclamation Worker Relationship Specialty Start Date End Date [place]-Azalia Recinos MD PCP - General Internal Medicine 12/02/1502/20/21 Charbel Poe 300 [facility] [address] [place] [address] PCP - General Internal Medicine 02/21/21 Shaw Cervantes MD [address] [place] [address] Specialist Cardiovascular Disease 02/18/21 Ryan Jenkins MD [address] [place] [address] Specialist Cardiology 02/18/21 Rosalva Stern PA-C 300 [facility] [address] [place] [address] Specialist Cardiology 02/18/21 documented as of this encounter
--- OUTSIDE RECORDS SUMMARY | 2024-08-25 13:48 | XMS_ITS | Encounter Summary ---
Author Organization [facility] Address [address] [place] [address] Care Team Providers Care Carrier Operator Name Role Phone Azalia Esposito MD Primary Care Provider Unavailable Shaw Cervantes MD Unavailable [phone] Ryan Jenkins MD Unavailable [phone] Rosalva Stern PA-C Unavailable Charbel Poe Primary Care Provider Unavailabl e Reason for Referral * EXTERNAL (Routine) - Authorized/Booked Specialty Diagnoses / Procedures Referred By Contmima dumont Referred To Contact Ophthalmology Procedures REFERRAL TO EXTERNAL OPHTHALMOLOGY Azalia Esposito MD [address] [place] [address] [facility] [address] [place] [address] Referral ID Status Reason Start Date Expiration Date V isits Requested Visits Authorized SEE NOTE Authorized/B ooked 09/26/2017 12/27/2017 1 1 Reason for Visit * Reason Onset Date Comments Scientific Informatics Project Leader Feedback 09/17/2017 Encounter Details Date Type Department Care Team Description 09/17/2017 Telephone Adult Medicine - [place] [address] [place] [address] Azalia Esposito MD Scientific Informatics Project Leader Feedback Social History Tobacco Use Types Packs/Day [...] 2:39 PM EDT Spoke to optomology in [place] they confirmed that Dr. Warner would have to have an outside department for optomolgy do this. * Telephone Encounter - Leonardo Coleman M.A. - 09/22/2017 11:17 AM EDT Called optomology in [place] BSR put message in with Dr. Warner's [...] optometry? Should he be seen by an cso or do you need patient to come [...] referral needs to start: HERNANDEZ Esposito Payor: SRIDHARCT/ FFS / Plan: [facility] MDCR-ADV HMO $20/$40 / Product Type: MEDICARE [id number] documented in this encounter Plan of Treatment Not on file documented as of this encounter Visit Diagnoses Not on filedocumented in this encounter Care Teams Carrier Operator Relationship Specialty Start Date End Date Azalia Esposito MD PCP - General Internal Medicine 12/02/1502/20/21 Charbel Poe [address] [address] PCP - General Internal Medicine 02/21/21 Shaw Cervantes MD [address] [place] [address] Specialist Cardiovascular Disease 02/18/21 Ryan Jenkins MD 300 [facility] [address] [place] [address] Specialist Cardiology 02/18/21 Rosalva Stern PA-C 300 [facility] [address] [place] [address] Specialist Cardiology 02/18/21 documented as of this encounter
--- OUTSIDE RECORDS SUMMARY | 2024-08-25 13:48 | XMS_ITS | Encounter Summary ---
Author Organization [facility] Address [address] [place] [address] Care Team Providers Care Crayon Sorting Machine Feeder Name Role Phone Timmy-Azalia Recinos MD Primary Care Provider Unavailable Shaw Cervantes MD Unavailable [phone] Ryan Jenkins MD Unavailable [phone] Rosalva Stern PA-C Unavailable Charbel Poe Primary Care Provider Unavailabl e Encounter Details Date Type Department Care Team Description 09/14/2018 Business Doc Medical Records [address] [place] [address] Abstract, Provider Social History Tobacco Use Types [...] on filedocumented in this encounter Care Teams Crayon Sorting Machine Feeder Relationship Specialty Start Date End Date Azalia Esposito MD PCP - General Internal Medicine 12/02/1502/20/21 Charbel Poe [address] [address] PCP - General Internal Medicine 02/21/21 Shaw Cervantes MD [address] [place] [address] Specialist Cardiovascular Disease 02/18/21 Ryan Jenkins MD [address] [place] [address] Specialist Cardiology 02/18/21 Rosavla Stern PA-C [address] [place] [address] Specialist Cardiology 02/18/21 documented as of this encounter
--- OUTSIDE RECORDS SUMMARY | 2024-08-25 13:48 | XMS_ITS | Encounter Summary ---
Author Organization [facility] Address [address] [place] [address] Care Team Providers Care Senior Analytical Chemist Name Role Phone Timmy-Azalia Recinos MD Primary Care Provider Unavailable Shaw Cervantes MD Unavailable [phone] Ryan Jenkins MD Unavailable [phone] Rosalva Stern PA-C Unavailable Charbel Poe Primary Care Provider Unavailabl e Encounter Details Date Type Department Care Team Description 03/11/2020 Electroencephalographic Technologist Report Medical Records [address] [place] [address] Rosalva Stern PA-C [address] [place] [id number] Social History Tobacco Use Types Packs/Day Years [...] filedocumented in this encounter Care Teams Senior Analytical Chemist Relationship Specialty Start Date End Date Azalia Esposito MD PCP - General Internal Medicine 12/02/1502/20/21 Charbel Poe [address] [address] PCP - General Internal Medicine 02/21/21 Shaw Cervantes MD [address] [place] [address] Specialist Cardiovascular Disease 02/18/21 Ryan Jenkins MD [address] [place] [address] Specialist Cardiology 02/18/21 Rosalva Stern PA-C [address] [place] [address] Specialist Cardiology 02/18/21 documented as of this encounter
--- OUTSIDE RECORDS SUMMARY | 2024-08-25 13:48 | XMS_ITS | Encounter Summary ---
Author Organization [facility] Address [address] [place] [address] Care Team Providers Care National Sales Consultant Name Role Phone [place]-Azalia Recinos MD Primary Care Provider Unavailable Shaw Cervantes MD Unavailable [phone] Ryan Jenkins MD Unavailable [phone] Rosalva Stern PA-C Unavailable Charbel Poe Primary Care Provider Unavailabl e Reason for Visit * Reason Onset Date Comments REFERRAL 08/31/2016 Gastro Encounter Details Date Type Department Care Team Description 08/31/2016 Telephone Gastroenterology - [address] [id number] Kirit Recio MD REFERRAL (Gastro) Social History [...] on filedocumented in this encounter Care Teams National Sales Consultant Relationship Specialty Start Date End Date [place]-Azalia Recinos MD PCP - General Internal Medicine 12/02/1502/20/21 Charbel Poe [address] [place] [address] PCP - General Internal Medicine 02/21/21 Shaw Cervantes MD [address] [place] [address] Specialist Cardiovascular Disease 02/18/21 Ryan Jenkins MD [address] [place] [address] Specialist Cardiology 02/18/21 Rosalva Stern PA-C [address] [place] [address] Specialist Cardiology 02/18/21 documented as of this encounter
--- OUTSIDE RECORDS SUMMARY | 2024-08-25 13:48 | XMS_ITS | Encounter Summary ---
Author Organization [facility] Address [address] [place] [address] Care Team Providers Care Scarfer Name Role Phone Azalia Esposito MD Primary Care Provider Unavailable Shaw Cervantes MD Unavailable [phone] Ryan Jenkins MD Unavailable [phone] Rosalva Stern PA-C Unavailable Charbel Poe Primary Care Provider Unavailabl e Reason for Visit * Reason Onset Date Comments Faxed Order 12/05/2019 Roxanna Lepe Encounter Details Date Type Department Care Team Description 12/05/2019 Telephone Adult Medicine - [address] [address] Azalia Esposito MD Faxed Order (Roxanna Lepe) [...] per list is Dr Timothy Pringle in [facility]. fyi * Telephone Encounter - Telma Jenkins [...] to face attestation. DOS 08-24-19 faxed to [phone]. If any questions she can be reached at [phone] * Telephone Encounter - Mona Vasquez - 12/05/2019 2:36 PM EDT Faxed order received by Roxanna placed in providers bin for signature, fax back to [phone] documented in this encounter Plan of Treatment Not on file documented as of this encounter Visit Diagnoses Not on filedocumented in this encounter Care Teams Scarfer Relationship Specialty Start Date End Date [place]-Azalia Recinos MD PCP - General Internal Medicine 12/02/1502/20/21 Charbel Poe [address] [place] [address] PCP - General Internal Medicine 02/21/21 Shaw Cervantes MD [address] [place], [place] [address] Specialist Cardiovascular Disease 02/18/21 Ryan Jenkins MD [address] [place] [address] Specialist Cardiology 02/18/21 Rosalva Stern PA-C [address] [place] [address] Specialist Cardiology 02/18/21 documented as of this encounter
--- OUTSIDE RECORDS SUMMARY | 2024-08-25 13:48 | XMS_ITS | Encounter Summary ---
Author Organization [facility] Address [address] [place] [address] Care Team Providers Care First Grade Teacher Name Role Phone Brick-Azalia Recions MD Primary Care Provider Unavailable Shaw Cervantes MD Unavailable [phone] Ryan Jenkins MD Unavailable [phone] Rosalva Stern PA-C Unavailable Charbel Poe Primary Care Provider Unavailthuan e Encounter Details Date Type Department Care Team Description 03/17/2018 Orders Only Pulmonology - [facility] [address] [facility] [address] [place] [address] Miky Lockett MD 175 [facility] [address] [place] [address] Stage 3 severe COPD by [...] Procedure Name Priority Date/Time Associated Diagnosis Comments ME NONINVASIVE EAR/PULSE OXIMETRY OVERNIGHT MONITOR Routine 02/14/2018 [...] (HCC) documented in this encounter Care Teams First Grade Teacher Relationship Specialty Start Date End Date Brick-Azalia Recinos MD PCP - General Internal Medicine 12/02/1502/20/21 Charbel Poe [address] [address] PCP - General Internal Medicine 02/21/21 Shaw Cervantes MD [address] [facility] [address] [place] [address] Specialist Cardiovascular Disease 02/18/21 Ryan Jenkins MD 300 [facility] [address] [place] [address] Specialist Cardiology 02/18/21 Rosalva Stern PA-C 300 [facility] [address] [place] [address] Specialist Cardiology 02/18/21 documented as of this encounter
--- OUTSIDE RECORDS SUMMARY | 2024-08-25 13:48 | XMS_ITS | Encounter Summary ---
Author Organization [facility] Address [address] [place] [address] Care Team Providers Care Hot Bread Baker Name Role Phone Timmy-Azalia Recinos MD Primary Care Provider Unavailable Shaw Cervantes MD Unavailable [phone] Ryan Jenkins MD Unavailable [phone] Rosalva Stern PA-C Unavailable Charbel Poe Primary Care Provider Unavailabl e Encounter Details Date Type Department Care Team Description 08/09/2019 [facility] Medical Records [address] [place] [address] Jessica Valadez Social History Tobacco Use Types [...] on filedocumented in this encounter Care Teams Hot Bread Baker Relationship Specialty Start Date End Date Azalia Esposito MD PCP - General Internal Medicine 12/02/1502/20/21 Charbel Poe [address] [place] [address] PCP - General Internal Medicine 02/21/21 Shaw Cervantes MD [address] [facility] [address] [place], [place] [address] Specialist Cardiovascular Disease 02/18/21 Ryan Jenkins MD [address] [place] [address] Specialist Cardiology 02/18/21 Rosalva Stern PA-C [address] [place] [address] Specialist Cardiology 02/18/21 documented as of this encounter
--- OUTSIDE RECORDS SUMMARY | 2024-08-25 13:48 | XMS_ITS | Encounter Summary ---
Author Organization [facility] Address [address] [place] [address] Care Team Providers Care Neurophysiologist Name Role Phone Shaw Cervantes MD Unavailable [phone] Ryan Jenkins MD Unavailable [phone] Rosalva Stern PA-C Unavailable Charbel Poe Primary Care Provider Unavailabl e Encounter Details Date Type Department Care Team Description 12/31/2023 Renewable Energy Project Manager Report Medical Records [address] [place] [address] Social History Tobacco Use Types Packs/Day Years [...] on filedocumented in this encounter Care Teams Neurophysiologist Relationship Specialty Start Date End Date Charbel Poe 300 [facility] [address] [place] [address] PCP - General Internal Medicine 02/21/21 Shaw Cervantes MD [address] [facility] [address] [place] [address] Specialist Cardiovascular Disease 02/18/21 Ryan Jenkins MD 300 [facility] [address] [place] [address] Specialist Cardiology 02/18/21 Rosalva Stern PA-C [address] [place] [address] Specialist Cardiology 02/18/21 documented as of this encounter
--- OUTSIDE RECORDS SUMMARY | 2024-08-25 13:48 | XMS_ITS | Encounter Summary ---
Author Organization [facility] Address [address] [place] [address] Care Team Providers Care Machine Splitter Name Role Phone [place]-Azalia Recinos MD Primary Care Provider Unavailable Shaw Cervantes MD Unavailable [phone] Ryan Jenkins MD Unavailable [phone] Rosalva Stern PA-C Unavailable Charbel Poe Primary Care Provider Unavailthuan e Encounter Details Date Type Department Care Team Description 08/20/2020 Refill Cardio PVC POC 154 [address] [facility] [address] [place] [address] Rosalva Stern PA-C [address] [place] [phone] Social History Tobacco Use Types Packs/Day Years [...] 08/20/2020 11:06 AM EST Incoming erx from [facility] for mag ox qd. Rx renewed. Last level from December 2019, 2.3 documented in this encounter Plan of Treatment Not on file documented as of this encounter Visit Diagnoses Not on filedocumented in this encounter Care Teams Machine Splitter Relationship Specialty Start Date End Date [place]-Azalia Recinos MD PCP - General Internal Medicine 12/02/1502/20/21 Charbel Poe [address] [place] [address] PCP - General Internal Medicine 02/21/21 Shaw Cervantes MD [address] [place] [address] Specialist Cardiovascular Disease 02/18/21 Ryan Jenkins MD [address] [place] [address] Specialist Cardiology 02/18/21 Rosalva Stern PA-C [address] [place] [address] Specialist Cardiology 02/18/21 documented as of this encounter
--- OUTSIDE RECORDS SUMMARY | 2024-08-25 13:48 | XMS_ITS | Encounter Summary ---
Author Organization [facility] Address [address] [place] [address] Care Team Providers Care Cloth Examiner Hand Name Role Phone Shaw Cervantes MD Unavailable [phone] Ryan Jenkins MD Unavailable [phone] Rosalva Stern PA-C Unavailable Charbel Poe Primary Care Provider Unavailabl e Encounter Details Date Type Department Care Team Description 12/21/2022 Baby Formula Mixer Report [facility] Medical [facility] Thoracic Surgery [place] 299 [facility] [address] [place] [address] Agnieszka Zapata MD 299 [facility] [address] [place], [place] [phone] Social History Tobacco Use Types Packs/Day Years [...] on filedocumented in this encounter Care Teams Cloth Examiner Hand Relationship Specialty Start Date End Date Charbel Poe [address] [place] [address] PCP - General Internal Medicine 02/21/21 Shaw Cervantes MD [address] [place] [address] Specialist Cardiovascular Disease 02/18/21 Ryan Jenkins MD [address] [place] [address] Specialist Cardiology 02/18/21 Rosalva Stern PA-C [address] [place] [address] Specialist Cardiology 02/18/21 documented as of this encounter
--- OUTSIDE RECORDS SUMMARY | 2024-08-25 13:48 | XMS_ITS | Encounter Summary ---
Author Organization [facility] Address [address] [place] [address] Care Team Providers Care Finance Clerk Name Role Phone [place]-Azalia Recinos MD Primary Care Provider Unavailable Shaw Cervantes MD Unavailable [phone] Ryan Jenkins MD Unavailable [phone] Rosalva Stern PA-C Unavailable Charbel Poe Primary Care Provider Unavailthuan e Reason for Visit * Reason Onset Date Comments Medical Records 08/02/2020 Encounter Details Date Type Department Care Team Description 08/02/2020 Telephone Medical Records [address] [place] [address] Abstract, Provider Medical Records Social History Tobacco [...] 08/02/2020 4:39 PM EST Faxed records to [facility] Att: Kirit Castro For New Appt. [phone]/ [phone] documented in this encounter Plan of Treatment Not on file documented as of this encounter Visit Diagnoses Not on filedocumented in this encounter Care Teams Finance Clerk Relationship Specialty Start Date End Date [place]-Azalia Recinos MD PCP - General Internal Medicine 12/02/1502/20/21 Charbel Poe [address] [place] [address] PCP - General Internal Medicine 02/21/21 Shaw Cervantes MD [address] [place] [address] Specialist Cardiovascular Disease 02/18/21 Ryan Jenkins MD [address] [place] [address] Specialist Cardiology 02/18/21 Rosalva Stern PA-C [address] [place] [address] Specialist Cardiology 02/18/21 documented as of this encounter
--- OUTSIDE RECORDS SUMMARY | 2024-08-25 13:48 | XMS_ITS | Encounter Summary ---
Author Organization [facility] Address [address] [place] [address] Care Team Providers Care Manager System Name Role Phone Timmy-Azalia Recinos MD Primary Care Provider Unavailable Shaw Cervantes MD Unavailable [phone] Ryan Jenkins MD Unavailable [phone] Rosalva Stern PA-C Unavailable Charbel Poe Primary Care Provider Unavailabl e Encounter Details Date Type Department Care Team Description 12/06/2019 Him Tech Report Medical Records [address] [place] [address] Shaw Cervantes MD [address] [place] [address] Social History Tobacco Use Types Packs/Day Years [...] filedocumented in this encounter Care Teams Manager System Relationship Specialty Start Date End Date Azalia Esposito MD PCP - General Internal Medicine 12/02/1502/20/21 Charbel Poe [address] [place] [address] PCP - General Internal Medicine 02/21/21 Shaw Cervantes MD [address] [place] [address] Specialist Cardiovascular Disease 02/18/21 Ryan Jenkins MD [address] [place] [address] Specialist Cardiology 02/18/21 Rosalva Stern PA-C [address] [place] [address] Specialist Cardiology 02/18/21 documented as of this encounter
--- OUTSIDE RECORDS SUMMARY | 2024-08-25 13:48 | XMS_ITS | Encounter Summary ---
Author Organization [facility] Address [address] [place] [address] Care Team Providers Care Jr. Systems Administrator Name Role Phone Azalia Esposito MD Primary Care Provider Unavailable Shaw Cervantes MD Unavailable [phone] Ryan Jenkins MD Unavailable [phone] Rosalva Stern PA-C Unavailable Charbel Poe Primary Care Provider Unavailabl e Reason for Visit * Reason Onset Date Comments medication problems 11/16/2017 Encounter Details Date Type Department Care Team Description 11/16/2017 Telephone Adult [facility] - [address] [address] Azalia Esposito MD medication problems Social History [...] on filedocumented in this encounter Care Teams Jr. Systems Administrator Relationship Specialty Start Date End Date Azalia Esposito MD PCP - General Internal Medicine 12/02/1502/20/21 Charbel Poe [address] [address] PCP - General Internal Medicine 02/21/21 Shaw Cervantes MD [address] [address] Specialist Cardiovascular Disease 02/18/21 Ryan Jenkins MD 300 [facility] [address] [place] [address] Specialist Cardiology 02/18/21 Rosalva Stern PA-C [address] [address] Specialist Cardiology 02/18/21 documented as of this encounter
--- OUTSIDE RECORDS SUMMARY | 2024-08-25 13:48 | XMS_ITS | Encounter Summary ---
Author Organization [facility] Address [address] [place] [address] Care Team Providers Care Blueprint Developer Name Role Phone Azalia Esposito MD Primary Care Provider Unavailable Azalia Esposito MD Primary Care Provider Unavailable Shaw Cervantes MD Unavailable [phone] Ryan Jenkins MD Unavailable [phone] Rosalva Stern PA-C Unavailable Charbel Poe Primary Care Provider Unavailabl e Reason for Visit * Reason Onset Date Comments Senior Research Associate Feedback 01/23/2015 Pulmonology Encounter Details Date Type Department Care Team Description 01/23/2015 Telephone [address] [place] [address] Kb Stack MD Senior Research Associate Feedback (Pulmonology) Social History Tobacco Use Types [...] You have placed a referral to see [facility] Pulmonology. Unfortunately, their office does not [...] on filedocumented in this encounter Care Teams Blueprint Developer Relationship Specialty Start Date End Date Timmy-Azalia Recinos MD PCP - General Internal Medicine 12/02/1502/20/21 Timmy-Azalia Recinos MD PCP - General 12/31/1411/30 Charbel Poe 300 [facility] [address] [place] [address] PCP - General Internal Medicine 02/21/21 Shaw Cervantes MD [address] [place] [address] Specialist Cardiovascular Disease 02/18/21 Ryan Jenkins MD [address] [place] [address] Specialist Cardiology 02/18/21 Rosalva Stern PA-C 300 [facility] [address] [place] [address] Specialist Cardiology 02/18/21 documented as of this encounter
--- OUTSIDE RECORDS SUMMARY | 2024-08-25 13:48 | XMS_ITS | Encounter Summary ---
Author Organization [facility] Address [address] [place] [address] Care Team Providers Care Reinspector Name Role Phone Azalia Esposito MD Primary Care Provider Unavailable Azalia Esposito MD Primary Care Provider Unavailable Shaw Cervantes MD Unavailable Ryan Jenkins MD Unavailable [phone] Rosalva Stern PA-C Unavailable Charbel Poe Primary Care Provider Unavailabl e Encounter Details Date Type Department Care Team Description 12/31/2014 Orders Only Adult Medicine - [address] [address] Hari Cristobal PA-C [address] [place] [address] COPD (chronic obstructive pulmonary disease) (Primary Dx) [...] PM EDT COPD (chronic obstructive pulmonary disease) IA NONINVASIVE EAR/PULSE OXIMETRY SINGLE DETER Routine 12/31/2014 6:35 PM EDT COPD (chronic obstructive pulmonary disease) IA PRESSURIZED/NONPRESSURI ZED INHALATION TREATMENT Routine 12/31/2014 6:35 PM EDT COPD (chronic obstructive pulmonary disease) documented in this encounter Visit Diagnoses Diagnosis COPD (chronic obstructive pulmonary disease) (HCC)- Primary Chronic airway obstruction, not elsewhere classified documented in this encounter Care Teams Reinspector Relationship Specialty Start Date End Date [place]-Azalia Recinos MD PCP - General Internal Medicine 12/02/1502/20/21 [place]-Azalia Recinos MD PCP - General 12/31/1411/30 Charbel Poe [address] [place] [address] PCP - General Internal Medicine 02/21/21 Shaw Cervantes MD [address] [place] [address] Specialist Cardiovascular Disease 02/18/21 Ryan Jenkins MD [address] [place] [address] Specialist Cardiology 02/18/21 Rosalva Stern PA-C [address] [place] [address] Specialist Cardiology 02/18/21 documented as of this encounter
--- OUTSIDE RECORDS SUMMARY | 2024-08-25 13:48 | XMS_ITS | Encounter Summary ---
Author Organization [facility] Address [address] [place] [address] Care Team Providers Care Transition Program Manager Name Role Phone Timmy-Azalia Recinos MD Primary Care Provider Unavailable Shaw Cervantes MD Unavailable Ryan Jenkins MD Unavailable [phone] Rosalva Stern PA-C Unavailable Charbel Poe Primary Care Provider Unavailabl e Encounter Details Date Type Department Care Team Description 08/24/2019 [facility] Medical Records [address] [place] [address] Onesimo Batista Social History Tobacco Use Types Packs/Day Years [...] on filedocumented in this encounter Care Teams Transition Program Manager Relationship Specialty Start Date End Date Azalia Esposito MD PCP - General Internal Medicine 12/02/1502/20/21 Charbel Poe [address] [place] [address] PCP - General Internal Medicine 02/21/21 Shaw Cervantes MD Medical [facility] [address] [place], [place] [address] Specialist Cardiovascular Disease 02/18/21 Ryan Jenkins MD [address] [place] [address] Specialist Cardiology 02/18/21 Rosalva Stern PA-C [address] [place] [address] Specialist Cardiology 02/18/21 documented as of this encounter
--- OUTSIDE RECORDS SUMMARY | 2024-08-25 13:48 | XMS_ITS | Encounter Summary ---
Author Organization [facility] Address [address] [place] [address] Care Team Providers Care Rolling Mill Operator Name Role Phone [place]-Azalia Recinos MD Primary Care Provider Unavailable Shaw Cervantes MD Unavailable [phone] Ryan Jenkins MD Unavailable [phone] Rosalva Stern PA-C Unavailable Charbel Poe Primary Care Provider Unavailabl e Encounter Details Date Type Department Care Team Description 11/07/2019 [facility] Medical Records [address] [place] [address] Blanca Raphael MD [address] [place] [address] Social History Tobacco Use Types Packs/Day Years [...] on filedocumented in this encounter Care Teams Rolling Mill Operator Relationship Specialty Start Date End Date Azalia Esposito MD PCP - General Internal Medicine 12/02/1502/20/21 Charbel Poe [address] [address] PCP - General Internal Medicine 02/21/21 Shaw Cervantes MD [address] [place] [address] Specialist Cardiovascular Disease 02/18/21 Ryan Jenkins MD [address] [place] [address] Specialist Cardiology 02/18/21 Rosalva Stern PA-C [address] [place] [address] Specialist Cardiology 02/18/21 documented as of this encounter
--- OUTSIDE RECORDS SUMMARY | 2024-08-25 13:48 | XMS_ITS | Encounter Summary ---
Author Organization [facility] Address [address] [place] [address] Care Team Providers Care Aircraft Navigator Name Role Phone Shaw Cervantes MD Unavailable Ryan Jenkins MD Unavailable Rosalva Stern PA-C Unavailable Charbel Poe Primary Care Provider Unavailabl e Encounter Details Date Type Department Care Team Description 06/18/2023 Orders Only [facility] Thoracic Surgery [place] 299 [facility] [address] [place] [address] Agnieszka Zapata MD 299 [facility] [address] [place] [address] Pulmonary nodules (Primary Dx) Social History Tobacco [...] field documented in this encounter Care Teams Aircraft Navigator Relationship Specialty Start Date End Date Charbel Poe 300 [facility] [address] [place] [address] PCP - General Internal Medicine 02/21/21 Shaw Cervantes MD [address] [place] [address] Specialist Cardiovascular Disease 02/18/21 Ryan Jenkins MD [address] [place] [address] Specialist Cardiology 02/18/21 Rosalva Stern PA-C [address] [place] [address] Specialist Cardiology 02/18/21 documented as of this encounter
--- OUTSIDE RECORDS SUMMARY | 2024-08-25 13:48 | XMS_ITS | Encounter Summary ---
Author Organization [facility] Address [address] [place] [address] Care Team Providers Care Telephone Lineworker Name Role Phone Timmy-Azalia Recinos MD Primary Care Provider Unavailable Shaw Cervantes MD Unavailable [phone] Ryan Jenkins MD Unavailable [phone] Rosalva Stern PA-C Unavailable Charbel Poe Primary Care Provider Unavailabl e Encounter Details Date Type Department Care Team Description 08/09/2019 [facility] Medical Records [address] [place] [address] Johan Barragan MD Social History Tobacco Use [...] on filedocumented in this encounter Care Teams Telephone Lineworker Relationship Specialty Start Date End Date Azalia Esposito MD PCP - General Internal Medicine 12/02/1502/20/21 Charbel Poe [address] [place] [address] PCP - General Internal Medicine 02/21/21 Shaw Cervantes MD Medical [facility] [address] [place], [place] [address] Specialist Cardiovascular Disease 02/18/21 Ryan Jenkins MD [address] [place] [address] Specialist Cardiology 02/18/21 Rosalva Stern PA-C [address] [place] [address] Specialist Cardiology 02/18/21 documented as of this encounter
--- OUTSIDE RECORDS SUMMARY | 2024-08-25 13:48 | XMS_ITS | Encounter Summary ---
Author Organization [facility] Address [address] [place] [address] Care Team Providers Care Black Top Paver Operator Name Role Phone Timmy-Azalia Recinos MD Primary Care Provider Unavailable Shaw Cervantes MD Unavailable [phone] Ryan Jenkins MD Unavailable [phone] Rosalva Stern PA-C Unavailable Charbel Poe Primary Care Provider Unavailabl e Encounter Details Date Type Department Care Team Description 10/27/2019 Outdoor Recreation Specialist Report Medical Records [address] [place] [address] Shaw Cervantes MD [address] [place] [address] Social History Tobacco Use Types Packs/Day Years [...] on filedocumented in this encounter Care Teams Black Top Paver Operator Relationship Specialty Start Date End Date Azalia Esposito MD PCP - General Internal Medicine 12/02/1502/20/21 Charbel Poe [address] [place] [address] PCP - General Internal Medicine 02/21/21 Shaw Cervantes MD [address] [place] [address] Specialist Cardiovascular Disease 02/18/21 Ryan Jenkins MD [address] [place] [address] Specialist Cardiology 02/18/21 Rosalva Stern PA-C [address] [place] [address] Specialist Cardiology 02/18/21 documented as of this encounter
--- OUTSIDE RECORDS SUMMARY | 2024-08-25 13:48 | XMS_ITS | Encounter Summary ---
Author Organization [facility] Address [address] [place] [address] Care Team Providers Care Slubber Hand Name Role Phone Azalia Esposito MD Primary Care Provider Unavailable Azalia Esposito MD Primary Care Provider Unavailable Shaw Cervantes MD Unavailable [phone] Ryan Jenkins MD Unavailable [phone] Rosalva Stern PA-C Unavailable Charbel Poe Primary Care Provider Unavailabl e Encounter Details Date Type Department Care Team Description 07/18/2015 Childcare Center Director Report Medical Records [address] [place] [id number] [place] [address] Social History Tobacco Use Types Packs/Day Years [...] on filedocumented in this encounter Care Teams Slubber Hand Relationship Specialty Start Date End Date Azalia Esposito MD PCP - General Internal Medicine 12/02/1502/20/21 Azalia Esposito MD PCP - General 12/31/1411/30 Charbel Poe [address] [place] [address] PCP - General Internal Medicine 02/21/21 Shaw Cervantes MD [address] [place] [address] Specialist Cardiovascular Disease 02/18/21 Ryan Jenkins MD [address] [place] [address] Specialist Cardiology 02/18/21 Rosalva Stern PA-C [address] [place] [address] Specialist Cardiology 02/18/21 documented as of this encounter
--- OUTSIDE RECORDS SUMMARY | 2024-08-25 13:48 | XMS_ITS | Encounter Summary ---
Author Organization [facility] Address [address] [place] [address] Care Team Providers Care Supervisor Research Shop Name Role Phone Timmy-Azalia Recinos MD Primary Care Provider Unavailable Shaw Cervantes MD Unavailable [phone] Ryan Jenkins MD Unavailable [phone] Rosalva Stern PA-C Unavailable Charbel Poe Primary Care Provider Unavailabl e Encounter Details Date Type Department Care Team Description 09/27/2019 Home Health Certification Medical Records [address] [place] [address] [employer] Social History Tobacco Use Types Packs/Day [...] on filedocumented in this encounter Care Teams Supervisor Research Shop Relationship Specialty Start Date End Date Azalia Esposito MD PCP - General Internal Medicine 12/02/1502/20/21 Charbel Poe [address] [address] PCP - General Internal Medicine 02/21/21 Shaw Cervantes MD [address] [place] [address] Specialist Cardiovascular Disease 02/18/21 Ryan Jenkins MD [address] [place] [address] Specialist Cardiology 02/18/21 Rosalva Stern PA-C [address] [place] [address] Specialist Cardiology 02/18/21 documented as of this encounter
--- OUTSIDE RECORDS SUMMARY | 2024-08-25 13:48 | XMS_ITS | Encounter Summary ---
Author Organization [facility] Address [address] [place] [address] Care Team Providers Care Conventions Reservationist Name Role Phone Azalia Esposito MD Primary Care Provider Unavailable Shaw Cervantes MD Unavailable [phone] Ryan Jenkins MD Unavailable [phone] Rosalva Stern PA-C Unavailable Charbel Poe Primary Care Provider Unavailabl e Reason for Visit * Reason Onset Date Comments [facility] Call 10/27/2019 Encounter Details Date Type Department Care Team Description 10/27/2019 Telephone Adult [address] [address] Azalia Esposito MD [facility] Call Social History [...] nurse. 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 Does caller need an urgent call back? NO Was CONTACT Telephone # obtained above?:YES Fax #: documented in this encounter Plan of Treatment Not on file documented as of this encounter Visit Diagnoses Not on filedocumented in this encounter Care Teams Conventions Reservationist Relationship Specialty Start Date End Date [employer]-Azalia Recinos MD PCP - General Internal Medicine 12/02/1502/20/21 Charbel Poe [address] [address] PCP - General Internal Medicine 02/21/21 Shaw Cervantes MD [address] [facility] [address] [place] [address] Specialist Cardiovascular Disease 02/18/21 Ryan Jenkins MD 300 [facility] [address] [place] [address] Specialist Cardiology 02/18/21 Rosalva Stern PA-C [address] [address] Specialist Cardiology 02/18/21 documented as of this encounter
--- OUTSIDE RECORDS SUMMARY | 2024-08-25 13:48 | XMS_ITS | Encounter Summary ---
Author Organization [facility] Address [address] [place] [address] Care Team Providers Care Checker And Packer Name Role Phone Timmy-Azalia Recinos MD Primary Care Provider Unavailable Shaw Cervantes MD Unavailable [phone] Ryan Jenkins MD Unavailable [phone] Rosalva Stern PA-C Unavailable Charbel Poe Primary Care Provider Unavailabl e Encounter Details Date Type Department Care Team Description 10/05/2019 Urologist Report Medical Records [address] [place] [address] Shaw Cervantes MD [address] [place] [address] Social History Tobacco Use Types Packs/Day Years [...] on filedocumented in this encounter Care Teams Checker And Packer Relationship Specialty Start Date End Date Azalia Espoisto MD PCP - General Internal Medicine 12/02/1502/20/21 Charbel Poe [address] [place] [address] PCP - General Internal Medicine 02/21/21 Shaw Cervantes MD [address] [place] [address] Specialist Cardiovascular Disease 02/18/21 Ryan Jenkins MD [address] [place] [address] Specialist Cardiology 02/18/21 Rosalva Stern PA-C [address] [place] [address] Specialist Cardiology 02/18/21 documented as of this encounter
--- OUTSIDE RECORDS SUMMARY | 2024-08-25 13:48 | XMS_ITS | Encounter Summary ---
Author Organization [facility] Address [address] [place] [address] Care Team Providers Care Residential Mental Health Worker Name Role Phone [place]-Azalia Recinos MD Primary Care Provider Unavailable Shaw Cervantes MD Unavailable [phone] Ryan Jenkins MD Unavailable [phone] Rosalva Stern PA-C Unavailable Charbel Poe Primary Care Provider Unavailabl e Reason for Visit * Reason Onset Date Comments EKG 09/25/2019 EKG Final Cardi Read Encounter Details Date Type Department Care Team Description 09/25/2019 Telephone Cardio PVC Med [address] [facility] [address] [place] [address] Ynes Cevallos MD EKG (EKG Final Cardi [...] EKG FINAL CARDI READ Faxed EKG to [phone] documented in this encounter Plan of Treatment Not on file documented as of this encounter Visit Diagnoses Not on filedocumented in this encounter Care Teams Residential Mental Health Worker Relationship Specialty Start Date End Date [place]-Azalia Recinos MD PCP - General Internal Medicine 12/02/1502/20/21 Charbel Poe 300 [facility] [address] [place] [address] PCP - General Internal Medicine 02/21/21 Shaw Cervantes MD [address] [place] [address] Specialist Cardiovascular Disease 02/18/21 Ryan Jenkins MD [address] [place] [address] Specialist Cardiology 02/18/21 Rosalva Stern PA-C 300 [facility] [address] [place] [address] Specialist Cardiology 02/18/21 documented as of this encounter
--- OUTSIDE RECORDS SUMMARY | 2024-08-25 13:48 | XMS_ITS | Encounter Summary ---
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 Coach Report Medical Records [address] [place] [address] Agnieszka Zapata MD [address] [place] [address] [address] [place] [address] Social History Tobacco Use Types Packs/Day Years [...] on filedocumented in this encounter Care Teams Piccoloist Relationship Specialty Start Date End Date Charbel Poe [address] [place] [address] PCP - General Internal Medicine 02/21/21 Shaw Cervantes MD [facility] [address] [place] [address] Specialist Cardiovascular Disease 02/18/21 Ryan Jenkins MD [address] [place] [address] Specialist Cardiology 02/18/21 Rosalva Stern PA-C [address] [place] [address] Specialist Cardiology 02/18/21 documented as of this encounter
--- OUTSIDE RECORDS SUMMARY | 2024-08-25 13:48 | XMS_ITS | Encounter Summary ---
Author Organization [facility] Address [address] [place] [address] Care Team Providers Care Child Welfare Caseworker Name Role Phone [place]-Azalia Recinos MD Primary Care Provider Unavailable Shaw Cervantes MD Unavailable [phone] Ryan Jenkins MD Unavailable [phone] Rosalva Stern PA-C Unavailable Charbel Poe Primary Care Provider Unavailabl e Encounter Details Date Type Department Care Team Description 05/10/2019 Telephone Adult [address] [address] Laura Rucker PA-C Social History Tobacco Use [...] Reid M.A. - 05/10/2019 1:42 PM EST [phone] (home) [phone] (work) Lvm for pt to return call. [...] on filedocumented in this encounter Care Teams Child Welfare Caseworker Relationship Specialty Start Date End Date [place]-Azalia Recinos MD PCP - General Internal Medicine 12/02/1502/20/21 Charbel Poe 300 [facility] [address] [place] [address] PCP - General Internal Medicine 02/21/21 Shaw Cervantes MD [address] [place] [address] Specialist Cardiovascular Disease 02/18/21 Ryan Jenkins MD [address] [place] [address] Specialist Cardiology 02/18/21 Rosalva Stern PA-C [address] [place] [address] Specialist Cardiology 02/18/21 documented as of this encounter
--- OUTSIDE RECORDS SUMMARY | 2024-08-25 13:48 | XMS_ITS | Encounter Summary ---
Author Organization [facility] Address [address] [place] [address] Care Team Providers Care Canal Structure Operator Name Role Phone Azalia Esposito MD Primary Care Provider Unavailable Shaw Cervantes MD Unavailable [phone] Ryan Jenkins MD Unavailable [phone] Rosalva Stern PA-C Unavailable Charbel Poe Primary Care Provider Unavailabl e Encounter Details Date Type Department Care Team Description 10/26/2016 Chief Construction Inspector Report Medical Records [address] [place] [address] Caron Gomez PA-C [address] [address] Social History Tobacco Use Types [...] on filedocumented in this encounter Care Teams Canal Structure Operator Relationship Specialty Start Date End Date Azalia Esposito MD PCP - General Internal Medicine 12/02/1502/20/21 Charbel Poe [address] [place] [address] PCP - General Internal Medicine 02/21/21 Shaw Cervantes MD [address] [place] [address] Specialist Cardiovascular Disease 02/18/21 Ryan Jenkins MD [address] [place] [address] Specialist Cardiology 02/18/21 Rosalva Stern PA-C [address] [place] [address] Specialist Cardiology 02/18/21 documented as of this encounter
--- OUTSIDE RECORDS SUMMARY | 2024-08-25 13:48 | XMS_ITS | Encounter Summary ---
Author Organization [facility] Address [address] [place] [address] Care Team Providers Care Smelting Engineer Name Role Phone Shaw Cervantes MD Unavailable Ryan Jenkins MD Unavailable Rosalva Stern PA-C Unavailable Charbel Poe Primary Care Provider Unavailabl e Encounter Details Date Type Department Care Team Description 12/18/2022 Chief Librarian Branch Report Medical Records [address] [place] [address] Agnieszka Zapata MD [address] [place] [address] [address] [place] [address] Social History Tobacco Use Types Packs/Day Years [...] on filedocumented in this encounter Care Teams Smelting Engineer Relationship Specialty Start Date End Date Charbel Poe [address] [place] [address] PCP - General Internal Medicine 02/21/21 Shaw Cervantes MD 2 [facility] [address] [place] [address] Specialist Cardiovascular Disease 02/18/21 Ryan Jenkins MD [address] [place] [address] Specialist Cardiology 02/18/21 Rosalva Stern PA-C [address] [place] [address] Specialist Cardiology 02/18/21 documented as of this encounter
--- OUTSIDE RECORDS SUMMARY | 2024-08-25 13:48 | XMS_ITS | Encounter Summary ---
Author Organization [facility] Address [address] [place] [address] Care Team Providers Care Meat Wrapper Name Role Phone Timmy-Azalia Recinos MD Primary Care Provider Unavailable Shaw Cervantes MD Unavailable [phone] Ryan Jenkins MD Unavailable [phone] Rosalva Stern PA-C Unavailable Charbel Poe Primary Care Provider Unavailabl e Encounter Details Date Type Department Care Team Description 11/10/2019 [facility] Medical Records [address] [place] [address] Yasmeen Murrell Social History Tobacco Use Types [...] on filedocumented in this encounter Care Teams Meat Wrapper Relationship Specialty Start Date End Date Azalia Esposito MD PCP - General Internal Medicine 12/02/1502/20/21 Charbel Poe [address] [place] [address] PCP - General Internal Medicine 02/21/21 Shaw Cervantes MD 2 Medical [facility] [address] [place], [place] [address] Specialist Cardiovascular Disease 02/18/21 Ryan Jenkins MD [address] [place] [address] Specialist Cardiology 02/18/21 Rosalva Stern PA-C [address] [place] [address] Specialist Cardiology 02/18/21 documented as of this encounter
--- OUTSIDE RECORDS SUMMARY | 2024-08-25 13:48 | XMS_ITS | Encounter Summary ---
Author Organization [facility] Address [address] [place] [address] Care Team Providers Care Swatch Paster Name Role Phone Timmy-Azalia Recinos MD Primary Care Provider Unavailable Shaw Cervantes MD Unavailable [phone] Ryan Jenkins MD Unavailable [phone] Rosalva Stern PA-C Unavailable Charbel Poe Primary Care Provider Unavailabl e Encounter Details Date Type Department Care Team Description 11/18/2019 [facility] Medical Records [address] [place] [address] Jose Haile MD Social History Tobacco Use [...] on filedocumented in this encounter Care Teams Swatch Paster Relationship Specialty Start Date End Date Azalia Esposito MD PCP - General Internal Medicine 12/02/1502/20/21 Charbel Poe [address] [place] [address] PCP - General Internal Medicine 02/21/21 Shaw Cervantes MD [address] Medical [facility] [address] [place], [place] [address] Specialist Cardiovascular Disease 02/18/21 Ryan Jenkins MD [address] [place] [address] Specialist Cardiology 02/18/21 Rosalva Stern PA-C [address] [place] [address] Specialist Cardiology 02/18/21 documented as of this encounter
--- OUTSIDE RECORDS SUMMARY | 2024-08-25 13:48 | XMS_ITS | Encounter Summary ---
Author Organization [facility] Address [address] [place] [address] Care Team Providers Care Police Reserves Commander Name Role Phone Timmy-Azalia Recinos MD Primary Care Provider Unavailable Shaw Cervantes MD Unavailable [phone] Ryan Jenkins MD Unavailable [phone] Rosalva Stern PA-C Unavailable Charbel Poe Primary Care Provider Unavailabl e Encounter Details Date Type Department Care Team Description 12/20/2019 Bulker Report Medical Records [address] [place] [address] [facility] Social History Tobacco Use Types Packs/Day Years [...] on filedocumented in this encounter Care Teams Police Reserves Commander Relationship Specialty Start Date End Date Azalia Esposito MD PCP - General Internal Medicine 12/02/1502/20/21 Charbel Poe [address] [address] PCP - General Internal Medicine 02/21/21 Shaw Cervantes MD [address] [place] [address] Specialist Cardiovascular Disease 02/18/21 Ryan Jenkins MD [address] [place] [address] Specialist Cardiology 02/18/21 Rosalva Stern PA-C [address] [place] [address] Specialist Cardiology 02/18/21 documented as of this encounter
--- OUTSIDE RECORDS SUMMARY | 2024-08-25 13:48 | XMS_ITS | Encounter Summary ---
Author Organization [facility] Address [address] [place] [address] Care Team Providers Care Lease Buyer Name Role Phone Azalia Esposito MD Primary Care Provider Unavailable Shaw Cervantes MD Unavailable [phone] Ryan Jenkins MD Unavailable Rosalva Stern PA-C Unavailable Charbel Poe Primary Care Provider Unavailabl e Reason for Visit * Reason Onset Date Comments Faxed Order 10/10/2019 Encounter Details Date Type Department Care Team Description 10/10/2019 Telephone Adult [address] [id number] Azalia Esposito MD Faxed Order Social History [...] review, sign, date, and fax back to [phone]. Order #[id number] * Telephone Encounter - Joanna Moore - 10/13/2019 11:39 AM EDT Faxed order received from Roxanna Lepe. Please review, sign, date, and fax back to [phone]. Order #[id number] * Telephone Encounter - Natalia Almeida - 10/10/2019 9:53 AM EDT Orders from Roxanna Lepe to be signed and faxed back to [phone] . documented in this encounter Plan of Treatment Not on file documented as of this encounter Visit Diagnoses Not on filedocumented in this encounter Care Teams Lease Buyer Relationship Specialty Start Date End Date Charlotte-Azalia Recinos MD PCP - General Internal Medicine 12/02/1502/20/21 Charbel Poe 300 [facility] [address] [place] [address] PCP - General Internal Medicine 02/21/21 Shaw Cervantes MD [address] [facility] [place] [address] [place] [address] Specialist Cardiovascular Disease 02/18/21 Ryan Jenkins MD 300 [facility] [address] [place] [address] Specialist Cardiology 02/18/21 Rosalva Stern PA-C 300 [facility] [address] [place] [address] Specialist Cardiology 02/18/21 documented as of this encounter
== END 2024-08-25 12:06 | disposition home or self-care (01) ==
LOC: HO.LAB 12:05
PROVIDERS: Visit Provider Student in an Organized Health Care Education/Training Program
DX: K92.2 Gastrointestinal hemorrhage, unspecified (principal); D62 Acute posthemorrhagic anemia; R92.2 Inconclusive mammogram; Z79.01 Long term (current) use of anticoagulants
CPT/HCPCS: 36415; 85025; 85610; 99211

== ENCOUNTER 2024-08-25 13:00 | Outpatient (AMB) | payer MEDICARE, SELFPAY ==
[2024-08-25 13:12] LABS: ~PT, ~INR - Anti Coag Clinic 1.8 (0.9-1.1)
--- NOTE | 2024-08-25 13:27 | MHC.OFFVISCO ---
Intake Intake Visit Reasons: Anticoagulation Allergies head and shoulders shampoo Adverse Reaction (Severe, Uncoded 08/25/24 13:04) burn Medication List - Last Reconciled 08/25/24 by Alem Baumann RN albuterol sulfate 90 mcg/actuation 2 puffs inhalation Q6H PRN budesonide-formoterol 80-4.5 mcg/actuation 2 puffs inhalation BID 90 days ipratropium-albuterol 0.5 mg-3 mg(2.5 mg base)/3 mL 3 mL inhalation QID lisinopril 2.5 mg (1/2 x 5 mg) PO DAILY metoprolol succinate ER 100 mg (2 x 50 mg) PO DAILY multivitamin (Daily Multi-Vitamin tablet) 1 tab PO DAILY nebulizers To use every 4 hours omeprazole 40 mg PO BID 90 days Oxygen Home Use As directed spironolactone 12.5 mg (1/2 x 25 mg) PO DAILY warfarin 2.5 mg See Protocol PO TUTH warfarin 5 mg See Protocol PO SUMOWEFRSA Nursing Note INR 1.8 out of therapeutic range Medications and supplements reviewed Patient status: S/P gi BLEED AND PNUEMONIA , had transfucion and platelets, completed antbxs and steroids 2 days ago, stillon omeprazole x 2 months which can raise the INR, he states he still is a little tired, bowel movements are normal Medications or supplements: no new RX Diet: good - has meals on wheels Denies any signs and symptoms of bleeding or clotting or unusual bruising Bleeding, bruising, clotting discussed Nutritional guidance given: avoid dark greens x 2 days- then resume usual diet - explained meds may still raise his INR even though he completed them Dose: resume 2.5mg x 2 days/ 5mg x 5 days recheck INR in 5 days F/U INR Date : 08/30/24 ?? Patient verbalizing understanding of instructions given with read back . Anti-Coag Initial Assessment Social Hx Patient Tobacco Use Status: Former Tobacco user Tobacco use type: Cigarette alcohol intake: current Alcohol intake frequency: other Cardiovascular Hx: HTN, CHF, Arrhythmias and Other Lung Disease HX: COPD and Other Blood Disorder Hx: Anemia GI Hx: Diverticulosis Neurological Hx: Other Cancer HX: No Psych. Illness/Depression: No Coding Level of Care Code Est Patient Level 1 Diagnoses Current use of anticoagulant therapy Z79.01 Assessment & Plan Assessment & Plan (1) Current use of anticoagulant therapy: Code(s): Z79.01 - senior living (current) use of anticoagulants Category: Medical
--- OUTSIDE RECORDS SUMMARY | 2024-08-25 14:34 | XMS_ITS | Encounter Summary ---
Author Organization [facility] Address [address] [place] [address] Care Team Providers Care Director Oracle Database Name Role Phone Bryan-Azalia Recinos MD Primary Care Provider Unavailable Shaw Cervantes MD Unavailable [phone] Ryan Jenkins MD Unavailable [phone] Rosalva Stern PA-C Unavailable Charbel Poe Primary Care Provider Unavailabl e Reason for Referral * EXTERNAL (Priority) - Authorized/Booked Specialty Diagnoses / Procedures Referred By Contac t Referred To Contact Pulmonology Procedures REFERRAL TO PULMONOLOGY Angel Shay PA-C [address] [place] [address] Calos Almeida MD [address] [place] [id number] Referral ID Status Reason Start Date Expiration Date V isits Requested Visits Authorized SEE NOTE Authorized/B ooked 11/27/2016 03/11/2017 1 1 Encounter Details Date Type Department Care Team Description 11/24/2016 Telephone Adult Medicine - [place] [address] [place] [address] Angel Shay PA-C Social History Tobacco Use [...] on filedocumented in this encounter Care Teams Director Oracle Database Relationship Specialty Start Date End Date Bryan-Azalia Recinos MD PCP - General Internal Medicine 12/02/1502/20/21 Charbel Poe 300 [facility] [address] [place] [address] PCP - General Internal Medicine 02/21/21 Shaw Cervantes MD [address] [place] [address] Specialist Cardiovascular Disease 02/18/21 Ryan Jenkins MD [address] [place] [address] Specialist Cardiology 02/18/21 Rosalva Stern PA-C 300 [facility] [address] [place] [address] Specialist Cardiology 02/18/21 documented as of this encounter
--- OUTSIDE RECORDS SUMMARY | 2024-08-25 14:34 | XMS_ITS | Encounter Summary ---
Author Organization [facility] Address [address] [place] [address] Care Team Providers Care Pie Icer Machine Name Role Phone Timmy-Azalia Recinos MD Primary Care Provider Unavailable Shaw Cervantes MD Unavailable [phone] Ryan Jenkins MD Unavailable [phone] Rosalva Stern PA-C Unavailable Charbel Poe Primary Care Provider Unavailabl e Encounter Details Date Type Department Care Team Description 11/10/2019 [facility] Medical Records [address] [place] [address] Yasmeen Murrell Social History Tobacco Use Types [...] on filedocumented in this encounter Care Teams Pie Icer Machine Relationship Specialty Start Date End Date Azalia Esposito MD PCP - General Internal Medicine 12/02/1502/20/21 Charbel Poe [address] [place] [address] PCP - General Internal Medicine 02/21/21 Shaw Cervantes MD 2 Medical [facility] [address] [place], [place] [address] Specialist Cardiovascular Disease 02/18/21 Ryan Jenkins MD [address] [place] [address] Specialist Cardiology 02/18/21 Rosalva Stern PA-C [address] [place] [address] Specialist Cardiology 02/18/21 documented as of this encounter
--- OUTSIDE RECORDS SUMMARY | 2024-08-25 14:34 | XMS_ITS | Encounter Summary ---
Author Organization [facility] Address [address] [place] [address] Care Team Providers Care Solar Process Engineer Name Role Phone Timmy-Azalia Recinos MD Primary Care Provider Unavailable Shaw Cervantes MD Unavailable Ryan Jenkins MD Unavailable [phone] Rosalva Stern PA-C Unavailable Charbel Poe Primary Care Provider Unavailabl e Encounter Details Date Type Department Care Team Description 02/07/2020 [facility] Medical Records [address] [place] [address] Ryan Jenkins MD [address] [address] Social History Tobacco Use Types Packs/Day Years [...] on filedocumented in this encounter Care Teams Solar Process Engineer Relationship Specialty Start Date End Date Azalia Esposito MD PCP - General Internal Medicine 12/02/1502/20/21 Charbel Poe [address] [address] PCP - General Internal Medicine 02/21/21 Shaw Cervantes MD [address] [place] [address] Specialist Cardiovascular Disease 02/18/21 Ryna Jenkins MD [address] [place] [address] Specialist Cardiology 02/18/21 Rosalva Stern PA-C [address] [place] [address] Specialist Cardiology 02/18/21 documented as of this encounter
--- OUTSIDE RECORDS SUMMARY | 2024-08-25 14:34 | XMS_ITS | Encounter Summary ---
Author Organization [facility] Address [address] [place] [address] Care Team Providers Care International Flight Attendant Name Role Phone Timmy-Azalia Recinos MD Primary Care Provider Unavailable Shaw Cervantes MD Unavailable [phone] Ryan Jenkins MD Unavailable [phone] Rosalva Stern PA-C Unavailable Charbel Poe Primary Care Provider Unavailabl e Encounter Details Date Type Department Care Team Description 09/06/2019 Telephone Adult Medicine - [address] [address] Azalia Esposito MD Social History Tobacco Use Types Packs/Day [...] encounter Miscellaneous Notes * Telephone Encounter - Jia Szymanski R.N. - 09/08/2019 2:27 PM EDT See other encounter from [facility] today. * Telephone Encounter - Azalia Esposito MD - 09/08/2019 11:35 AM EDT Sounds like he is doing ok. Is her visit today the last day? Is she coming at all next week? If so,I think it is best for him to do a phone call visit instead of coming into the office 09/10 * Telephone Encounter - Jia Szymanski R.N. - 09/06/2019 2:59 PM EDT Called and spoke with Regina. Patient is afebrile. Regina listened to patient's lungs and he has rhonchi. He is coughing up white phlegm. Regina states his legs look good. 02 sat at 2L is 96 but still smoking 3-4 cigarettes per day. She counseled patient about the risks of smoking. Regina will call this nurse Wednesday morning after she reassesses him. FYI to . * Telephone Encounter - Jia Szymanski R.N. - 09/06/2019 2:55 PM EDT Called Regina. Got name identified voicemail. Left message for Regina to return call. * Telephone Encounter - Gauri Johnston - 09/06/2019 2:45 PM EDT Regina from [facility] is returning call please call [phone] * Telephone Encounter - Azalia Esposito MD - 09/06/2019 11:48 AM EDT If you have time this week, can you call his [facility]? If he is feeling better and has [facility] coming to his house for checks, he many not need to come in. With his COPD it is very risky for him to be out. Please ask [facility] what they think. I'd really prefer to do telephone encounter if possible documented in this encounter Plan of Treatment Not on file documented as of this encounter Visit Diagnoses Not on filedocumented in this encounter Care Teams International Flight Attendant Relationship Specialty Start Date End Date Azalia Esposito MD PCP - General Internal Medicine 12/02/1502/20/21 Charbel Poe [address] [place] [address] PCP - General Internal Medicine 02/21/21 Shaw Cervantes MD [address] [place] [address] Specialist Cardiovascular Disease 02/18/21 Ryan Jenkins MD [address] [place] [address] Specialist Cardiology 02/18/21 Rosalva Stern PA-C [address] [place] [address] Specialist Cardiology 02/18/21 documented as of this encounter
--- OUTSIDE RECORDS SUMMARY | 2024-08-25 14:34 | XMS_ITS | Encounter Summary ---
Author Organization [facility] Address [address] [place] [address] Care Team Providers Care Edge Blacker Name Role Phone Azalia Esposito MD Primary Care Provider Unavailable Azalia Esposito MD Primary Care Provider Unavailable Shaw Cervantes MD Unavailable [phone] Ryan Jenkins MD Unavailable Rosalva Stern PA-C Unavailable Charbel Poe Primary Care Provider Unavailabl e Encounter Details Date Type Department Care Team Description 11/12/2015 Bin Worker Report Medical Records [address] [place] [address] Abstract, Provider Social History Tobacco Use Types [...] on filedocumented in this encounter Care Teams Edge Blacker Relationship Specialty Start Date End Date Azalia Esposito MD PCP - General Internal Medicine 12/02/1502/20/21 Azalia Esposito MD PCP - General 12/31/1411/30 Charbel Poe [address] [place] [address] PCP - General Internal Medicine 02/21/21 Shaw Cervantes MD [address] [place] [address] Specialist Cardiovascular Disease 02/18/21 Ryan Jenkins MD [address] [place] [address] Specialist Cardiology 02/18/21 Rosalva Stern PA-C [address] [place] [address] Specialist Cardiology 02/18/21 documented as of this encounter
--- OUTSIDE RECORDS SUMMARY | 2024-08-25 14:34 | XMS_ITS | Encounter Summary ---
Author Organization [facility] Address [address] [place] [address] Care Team Providers Care Hand Candy Dipper Name Role Phone Timmy-Azalia Recinos MD Primary Care Provider Unavailable Shaw Cervantes MD Unavailable [phone] Ryan Jenkins MD Unavailable [phone] Rosalva Stern PA-C Unavailable Charbel Poe Primary Care Provider Unavailabl e Encounter Details Date Type Department Care Team Description 12/06/2019 Exploration Engineer Report Medical Records [address] [place] [address] Shaw Cervantes MD [address] [place] [address] Social History Tobacco Use Types Packs/Day Years [...] on filedocumented in this encounter Care Teams Hand Candy Dipper Relationship Specialty Start Date End Date Azalia Esposito MD PCP - General Internal Medicine 12/02/1502/20/21 Charbel Poe [address] [place] [address] PCP - General Internal Medicine 02/21/21 Shaw Cervantes MD [address] [place] [address] Specialist Cardiovascular Disease 02/18/21 Ryan Jenkins MD [address] [place] [address] Specialist Cardiology 02/18/21 Rosalva Stern PA-C [address] [place] [address] Specialist Cardiology 02/18/21 documented as of this encounter
--- OUTSIDE RECORDS SUMMARY | 2024-08-25 14:34 | XMS_ITS | Encounter Summary ---
Author Organization [facility] Address [address] [place] [address] Care Team Providers Care Svp Research & Ebusiness Operations Name Role Phone Azalia Esposito MD Primary Care Provider Unavailable Shaw Cervantes MD Unavailable [phone] Ryan Jenkins MD Unavailable [phone] Rosalva Stern PA-C Unavailable Charbel Poe Primary Care Provider Unavailabl e Reason for Visit * Reason Onset Date Comments [facility] Call 10/27/2019 Encounter Details Date Type Department Care Team Description 10/27/2019 Telephone Adult [address] [address] Azalia Esposito MD [facility] Call Social History [...] nurse. He will only listen to his marketing strategy manager. Does caller need an urgent call back? NO Was CONTACT Telephone # obtained above?:YES Fax #: documented in this encounter Plan of Treatment Not on file documented as of this encounter Visit Diagnoses Not on filedocumented in this encounter Care Teams Svp Research & Ebusiness Operations Relationship Specialty Start Date End Date Monroe-Azalia Recinos MD PCP - General Internal Medicine 12/02/1502/20/21 Charbel Poe [address] [address] PCP - General Internal Medicine 02/21/21 Shaw Cervantes MD [address] [facility] [address] [place] [address] Specialist Cardiovascular Disease 02/18/21 Ryan Jenkins MD 300 [facility] [address] [place] [address] Specialist Cardiology 02/18/21 Rosalva Stern PA-C [address] [address] Specialist Cardiology 02/18/21 documented as of this encounter
--- OUTSIDE RECORDS SUMMARY | 2024-08-25 14:34 | XMS_ITS | Encounter Summary ---
Author Organization [facility] Address [address] [place] [address] Care Team Providers Care Counter Supply Worker Name Role Phone Morrison-Azalia Recinos MD Primary Care Provider Unavailable Shaw Cervantes MD Unavailable [phone] Ryan Jenkins MD Unavailable [phone] Rosalva Stern PA-C Unavailable Charbel Poe Primary Care Provider Unavailabl e Encounter Details Date Type Department Care Team Description 05/10/2019 Telephone Adult [address] [address] Laura Rucker PA-C Social History Tobacco Use [...] Reid M.A. - 05/10/2019 1:42 PM EST [phone] (home) [phone] (work) Lvm for pt to return call. [...] on filedocumented in this encounter Care Teams Counter Supply Worker Relationship Specialty Start Date End Date Morrison-Azalia Recinos MD PCP - General Internal Medicine 12/02/1502/20/21 Charbel Poe 300 [facility] [address] [place] [address] PCP - General Internal Medicine 02/21/21 Shaw Cervantes MD [address] [place] [address] Specialist Cardiovascular Disease 02/18/21 Ryan Jenkins MD [address] [place] [address] Specialist Cardiology 02/18/21 Rosalva Stern PA-C [address] [place] [address] Specialist Cardiology 02/18/21 documented as of this encounter
--- OUTSIDE RECORDS SUMMARY | 2024-08-25 14:34 | XMS_ITS | Encounter Summary ---
Author Organization [facility] Address [address] [place] [address] Care Team Providers Care Elevator Service Technician Name Role Phone Timmy-Azalia Recinos MD Primary Care Provider Unavailable Shaw Cervantes MD Unavailable Ryan Jenkins MD Unavailable [phone] Rosalva Stern PA-C Unavailable Charbel Poe Primary Care Provider Unavailabl e Encounter Details Date Type Department Care Team Description 11/24/2018 Transportation Associate Report Medical Records [address] [place] [id number] [place] [address] Social History Tobacco Use Types Packs/Day Years [...] on filedocumented in this encounter Care Teams Elevator Service Technician Relationship Specialty Start Date End Date Azalia Esposito MD PCP - General Internal Medicine 12/02/1502/20/21 Charbel Poe [address] [address] PCP - General Internal Medicine 02/21/21 Shaw Cervantes MD [address] [place] [address] Specialist Cardiovascular Disease 02/18/21 Ryan Jenkins MD [address] [place] [address] Specialist Cardiology 02/18/21 Rosalva Stern PA-C [address] [place] [address] Specialist Cardiology 02/18/21 documented as of this encounter
--- OUTSIDE RECORDS SUMMARY | 2024-08-25 14:34 | XMS_ITS | Encounter Summary ---
Author Organization [facility] Address [address] [place] [address] Care Team Providers Care Donor Services Team Leader Name Role Phone Timmy-Azalia Recinos MD Primary Care Provider Unavailable Shaw Cervantes MD Unavailable [phone] Ryan Jenkins MD Unavailable [phone] Rosalva Stern PA-C Unavailable Charbel Poe Primary Care Provider Unavailabl e Encounter Details Date Type Department Care Team Description 08/24/2019 [facility] Medical Records [address] [place] [address] Onesimo Batista Social History Tobacco Use Types [...] on filedocumented in this encounter Care Teams Donor Services Team Leader Relationship Specialty Start Date End Date Azalia Esposito MD PCP - General Internal Medicine 12/02/1502/20/21 Charbel Poe [address] [place] [address] PCP - General Internal Medicine 02/21/21 Shaw Cervantes MD Medical [facility] [address] [place], [place] [address] Specialist Cardiovascular Disease 02/18/21 Ryan Jenkins MD [address] [place] [address] Specialist Cardiology 02/18/21 Rosalva Stern PA-C [address] [place] [address] Specialist Cardiology 02/18/21 documented as of this encounter
--- OUTSIDE RECORDS SUMMARY | 2024-08-25 14:34 | XMS_ITS | Encounter Summary ---
Author Organization [facility] Address [address] [place] [address] Care Team Providers Care Cover Creaser Name Role Phone Azalia Esposito MD Primary Care Provider Unavailable Shaw Cervantes MD Unavailable Ryan Jenkins MD Unavailable Rosalva Stern PA-C Unavailable Charbel Poe Primary Care Provider Unavailabl e Encounter Details Date Type Department Care Team Description 10/26/2016 Office Rep Report Medical Records [address] [place] [address] Caron Gomez PA-C [address] [address] Social History Tobacco Use Types [...] on filedocumented in this encounter Care Teams Cover Creaser Relationship Specialty Start Date End Date Azalia Esposito MD PCP - General Internal Medicine 12/02/1502/20/21 Charbel Poe [address] [place] [address] PCP - General Internal Medicine 02/21/21 Shaw Cervantes MD [address] [place] [address] Specialist Cardiovascular Disease 02/18/21 Ryan Jenkins MD [address] [place] [address] Specialist Cardiology 02/18/21 Rosalva Stern PA-C [address] [place] [address] Specialist Cardiology 02/18/21 documented as of this encounter
--- OUTSIDE RECORDS SUMMARY | 2024-08-25 14:34 | XMS_ITS | Encounter Summary ---
Author Organization [facility] Address [address] [place] [address] Care Team Providers Care Grocery Shopper Name Role Phone Azalia Esposito MD Primary Care Provider Unavailable Shaw Cervantes MD Unavailable [phone] Ryan Jenkins MD Unavailable Rosalva Stern PA-C Unavailable Charbel Poe Primary Care Provider Unavailabl e Reason for Visit * Reason Onset Date Comments [facility] Call 09/15/2019 Encounter Details Date Type Department Care Team Description 09/15/2019 Telephone Adult Medicine - [address] [address] Azalia Espostio MD [facility] Call Social History Tobacco Use [...] on filedocumented in this encounter Care Teams Grocery Shopper Relationship Specialty Start Date End Date Timmy-Azalia Recinos MD PCP - General Internal Medicine 12/02/1502/20/21 Charbel Poe [address] [place] [address] PCP - General Internal Medicine 02/21/21 Shaw Cervantes MD [address] [place] [address] Specialist Cardiovascular Disease 02/18/21 Ryan Jenkins MD [address] [place] [address] Specialist Cardiology 02/18/21 Rosalva Stern PA-C [address] [place] [address] Specialist Cardiology 02/18/21 documented as of this encounter
--- OUTSIDE RECORDS SUMMARY | 2024-08-25 14:34 | XMS_ITS | Encounter Summary ---
Author Organization [facility] Address [address] [place] [address] Care Team Providers Care Track Rider Name Role Phone Timmy-Azalia Recinos MD Primary Care Provider Unavailable Shaw Cervantes MD Unavailable [phone] Ryan Jenkins MD Unavailable [phone] Rosalva Stern PA-C Unavailable Charbel Poe Primary Care Provider Unavailabl e Encounter Details Date Type Department Care Team Description 10/27/2019 Fence Post Cutter Report Medical Records [address] [place] [address] Shaw Cervantes MD [address] [place] [address] Social History Tobacco Use Types Packs/Day Years [...] on filedocumented in this encounter Care Teams Track Rider Relationship Specialty Start Date End Date Azalia Esposito MD PCP - General Internal Medicine 12/02/1502/20/21 Charbel Poe [address] [place] [address] PCP - General Internal Medicine 02/21/21 Shaw Cervantes MD [address] [place] [address] Specialist Cardiovascular Disease 02/18/21 Ryan Jenkins MD [address] [place] [address] Specialist Cardiology 02/18/21 Rosalva Stern PA-C [address] [place] [address] Specialist Cardiology 02/18/21 documented as of this encounter
--- OUTSIDE RECORDS SUMMARY | 2024-08-25 14:34 | XMS_ITS | Encounter Summary ---
Author Organization [facility] Address [address] [place] [address] Care Team Providers Care Choir Teacher Name Role Phone Sudarshan Deluca Primary Care Provider Unav ailable Shin Núñez MD Primary Care Provider [phone] Azalia Esposito MD Primary Care Provider Unavailable Azalia Esposito MD Primary Care Provider Unavailable Shaw Cervantes MD Unavailable [phone] Ryan Jenkins MD Unavailable [phone] Rosalva Stern PA-C Unavailable Charbel Poe Primary Care Provider Unavailabl e Encounter Details Date Type Department Care Team Description 07/08/2009 Hospital Medical Records [address] [place] [address] Santana Louis MD Social History Tobacco Use [...] on filedocumented in this encounter Care Teams Choir Teacher Relationship Specialty Start Date End Date Sudarshan Deluca PCP - General 05/06/10 12/30/14 Shin Núñez MD [address] [place] [address] PCP - General 07/08/09 05/05/10 Timmy-Azalia Recinos MD [address] [place] [address] PCP - General Internal Medicine 12/02/15 02/20/21 Azalia Esposito MD [address] [place] [address] PCP - General 12/31/14 12/01/15 Charbel Poe [address] [place] [address] PCP - General Internal Medicine 02/21/21 Shaw Cervantes MD [address] [place] [address] Specialist Cardiovascular Disease 02/18/21 Ryan Jenkins MD [address] [place] [address] Specialist Cardiology 02/18/21 Rosalva Stern PA-C [address] [place] [address] Specialist Cardiology 02/18/21 documented as of this encounter
--- OUTSIDE RECORDS SUMMARY | 2024-08-25 14:34 | XMS_ITS | Encounter Summary ---
Author Organization [facility] Address [address] [place] [address] Care Team Providers Care Investment Specialist Name Role Phone Shaw Cervantes MD Unavailable Ryan Jenkins MD Unavailable [phone] Rosalva Stern PA-C Unavailable Charbel Poe Primary Care Provider Unavailabl e Encounter Details Date Type Department Care Team Description 05/15/2022 Returned Materials Inspector Report Medical Records [address] [place] [address] Agnieszka Zapata MD [address] [place] [address] [address] [place] [address] Social History Tobacco Use Types Packs/Day Years [...] on filedocumented in this encounter Care Teams Investment Specialist Relationship Specialty Start Date End Date Charbel Poe [address] [place] [address] PCP - General Internal Medicine 02/21/21 Shaw Cervantes MD 2 [facility] [address] [place] [address] Specialist Cardiovascular Disease 02/18/21 Ryan Jenkins MD [address] [place] [address] Specialist Cardiology 02/18/21 Rosalva Stern PA-C [address] [place] [address] Specialist Cardiology 02/18/21 documented as of this encounter
--- OUTSIDE RECORDS SUMMARY | 2024-08-25 14:34 | XMS_ITS | Encounter Summary ---
Author Organization [facility] Address [address] [place] [address] Care Team Providers Care Manufacturing Development Engineer Name Role Phone Azalia Esposito MD Primary Care Provider Unavailable Azalia Esposito MD Primary Care Provider Unavailable Shaw Cervantes MD Unavailable [phone] Ryan Jenkins MD Unavailable [phone] Rosalva Stern PA-C Unavailable Charbel Poe Primary Care Provider Unavailabl e Encounter Details Date Type Department Care Team Description 12/31/2014 Orders Only Adult Medicine - [address] [address] Hari Cristobal PA-C [address] [place] [address] COPD (chronic obstructive pulmonary disease) (Primary Dx) [...] PM EDT COPD (chronic obstructive pulmonary disease) VT NONINVASIVE EAR/PULSE OXIMETRY SINGLE DETER Routine 12/31/2014 6:35 PM EDT COPD (chronic obstructive pulmonary disease) [place] PRESSURIZED/NONPRESSURI ZED INHALATION TREATMENT Routine 12/31/2014 6:35 PM EDT COPD (chronic obstructive pulmonary disease) documented in this encounter Visit Diagnoses Diagnosis COPD (chronic obstructive pulmonary disease) (HCC)- Primary Chronic airway obstruction, not elsewhere classified documented in this encounter Care Teams Manufacturing Development Engineer Relationship Specialty Start Date End Date [place]-Azalia Recinos MD PCP - General Internal Medicine 12/02/1502/20/21 [place]-Azalia Recinos MD PCP - General 12/31/1411/30 Charbel oPe [address] [place] [address] PCP - General Internal Medicine 02/21/21 Shaw Cervantes MD [address] [place] [address] Specialist Cardiovascular Disease 02/18/21 Ryan Jenkins MD [address] [place] [address] Specialist Cardiology 02/18/21 Rosalva Stern PA-C [address] [place] [address] Specialist Cardiology 02/18/21 documented as of this encounter
--- OUTSIDE RECORDS SUMMARY | 2024-08-25 14:34 | XMS_ITS | Encounter Summary ---
Author Organization [facility] Address [address] [place] [address] Care Team Providers Care Maintenance Worker House Trailer Name Role Phone Shaw Cervantes MD Unavailable [phone] Ryan Jenkins MD Unavailable Rosalva Stern PA-C Unavailable Charbel Poe Primary Care Provider Unavailabl e Encounter Details Date Type Department Care Team Description 12/21/2022 Manufacturer'S Representative Report [facility] Medical [facility] [place] [address] [facility] [address] [place] [address] Agnieszka Zapata MD 299 [facility] [address] [place], [place] [id number] Social History Tobacco Use Types Packs/Day Years [...] on filedocumented in this encounter Care Teams Maintenance Worker House Trailer Relationship Specialty Start Date End Date Charbel Poe [address] [place] [address] PCP - General Internal Medicine 02/21/21 Shaw Cervantes MD [address] [place] [address] Specialist Cardiovascular Disease 02/18/21 Ryan Jenkins MD [address] [place] [address] Specialist Cardiology 02/18/21 Rosalva Stern PA-C [address] [place] [address] Specialist Cardiology 02/18/21 documented as of this encounter
--- OUTSIDE RECORDS SUMMARY | 2024-08-25 14:34 | XMS_ITS | Clinical Summary ---
Author Organization [facility] Address [address] [place] [address] Care Team Providers Care Sap Pp Consultant Name Role Phone Charbel Poe MD Primary Care Provider [phone] Surgical History Surgery Date Site/Laterality Comments OTHER SURGICAL HISTORY PROCEDURE: DENIES PREVIOUS SURGERY COLONOSCOPY 07/09/2009 PROCEDURE: HISTORICAL COLONOSCOPY; COMMENT: [facility]. Diverticulosis. UPPER GASTROINTESTINAL ENDOSCOPY 07/09/2009 PROCEDURE: [place] UPPER GI ENDOSCOPY PERFORMED; COMMENT: [facility], GI bleed. No significant abnormalities. Medical History Medical History Date Comments Iron deficiency anemia 07/16/2009 DX:Iron d eficiency anemia Tobacco abuse 07/16/2009 DX:Tobacco abuse ; COMMENT: Has tried Wellbutrin, Chantix, hypnotherapy, nicotine patch and gum 10/22 - [employer] unable to contact after 5 attempts Diverticulosis, sigmoid 07/16/2009 DX:Diver ticulosis, sigmoid; COMMENT: Lower GI bleed 06/23. Admitted to [facility]. Colonoscopy 06/23. 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) 07/16/2009 DX:COPD (chronic obstructive pulmonary disease) ([facility]); COMMENT: Dr. Stack Severe obstructive disease by [...] Documents on File Type Date Recorded Patient Associate Data Scientist Expl anation Health Care Decision (hx) 02/08/2020 AD PAZ DIRECTIVE Health Care Decision (hx) 02/08/2020 AD PAZ DIRECTIVE Health Care Decision (hx) 02/08/2020 AD PAZ DIRECTIVE Health Care Decision (hx) 02/08/2020 AD PAZ DIRECTIVE Health Care Decision (hx) 02/08/2020 AD PAZ DIRECTIVE Care Teams Sap Pp Consultant Relationship Specialty Start Date End Date Charbel Poe MD [address] [place] [address] [address] [place] [address] PCP - General Internal Medicine 02/21/21
--- OUTSIDE RECORDS SUMMARY | 2024-08-25 14:34 | XMS_ITS | Encounter Summary ---
Author Organization [facility] Address [address] [place] [address] Care Team Providers Care Database Tester Name Role Phone [place]-Azalia Recinos MD Primary Care Provider Unavailable Shaw Cervantes MD Unavailable [phone] Ryan Jenkins MD Unavailable [phone] Rosalva Stern PA-C Unavailable Charbel Poe Primary Care Provider Unavailthuan e Reason for Visit * Reason Onset Date Comments Medical Records 08/02/2020 Encounter Details Date Type Department Care Team Description 08/02/2020 Telephone Medical Records [address] [place] [address] Abstract, Provider Medical Records Social History Tobacco [...] 08/02/2020 4:39 PM EST Faxed records to [facility] Att: Kirit Castro For New Appt. [phone]/ [phone] documented in this encounter Plan of Treatment Not on file documented as of this encounter Visit Diagnoses Not on filedocumented in this encounter Care Teams Database Tester Relationship Specialty Start Date End Date [place]-Azalia Recinos MD PCP - General Internal Medicine 12/02/1502/20/21 Charbel Poe [address] [place] [address] PCP - General Internal Medicine 02/21/21 Shaw Cervantes MD [address] [place] [address] Specialist Cardiovascular Disease 02/18/21 Ryan Jenkins MD [address] [place] [address] Specialist Cardiology 02/18/21 Rosalva Stern PA-C [address] [place] [address] Specialist Cardiology 02/18/21 documented as of this encounter
--- OUTSIDE RECORDS SUMMARY | 2024-08-25 14:34 | XMS_ITS | Encounter Summary ---
Author Organization [facility] Address [address] [place] [address] Care Team Providers Care Regional Economic Liaison Name Role Phone Azalia Esposito MD Primary Care Provider Unavailable Shaw Cervantes MD Unavailable Ryan Jenkins MD Unavailable [phone] Rosalva Stern PA-C Unavailable Charbel Poe Primary Care Provider Unavailabl e Reason for Referral * EXTERNAL (Routine) - Authorized/Booked Specialty Diagnoses / Procedures Referred By Contmima dumont Referred To Contact Ophthalmology Procedures REFERRAL TO EXTERNAL OPHTHALMOLOGY Azalia Esposito MD [address] [place] [address] [facility] [address] [place] [address] Referral ID Status Reason Start Date Expiration Date V isits Requested Visits Authorized SEE NOTE Authorized/B ooked 09/26/2017 12/27/2017 1 1 Reason for Visit * Reason Onset Date Comments Utility Teller Feedback 09/17/2017 Encounter Details Date Type Department Care Team Description 09/17/2017 Telephone Adult Medicine - [place] [address] [place] [address] Azalia Esposito MD Utility Teller Feedback Social History Tobacco Use Types Packs/Day [...] 2:39 PM EDT Spoke to optomology in [place] they confirmed that Dr. Warner would have to have an outside department for optomolgy do this. * Telephone Encounter - Leonardo Coleman M.A. - 09/22/2017 11:17 AM EDT Called optomology in [place] BSR put message in with Dr. Warner's [...] optometry? Should he be seen by an bleach liquor maker or do you need patient to come [...] referral needs to start: HERNANDEZ Esposito Payor: SRIDHARMO/ FFS / Plan: [facility] MDCR-ADV HMO $20/$40 / Product Type: MEDICARE [id number] documented in this encounter Plan of Treatment Not on file documented as of this encounter Visit Diagnoses Not on filedocumented in this encounter Care Teams Regional Economic Liaison Relationship Specialty Start Date End Date Azalia Esposito MD PCP - General Internal Medicine 12/02/1502/20/21 Charbel Poe [address] [address] PCP - General Internal Medicine 02/21/21 Shaw Cervantes MD [address] [place] [address] Specialist Cardiovascular Disease 02/18/21 Ryan Jenkins MD [address] [facility] [address] [place] [address] Specialist Cardiology 02/18/21 Rosalva Stern PA-C [address] [facility] [address] [place] [address] Specialist Cardiology 02/18/21 documented as of this encounter
--- OUTSIDE RECORDS SUMMARY | 2024-08-25 14:34 | XMS_ITS | Encounter Summary ---
Author Organization [facility] Address [address] [place] [address] Care Team Providers Care Bakery Manager Name Role Phone Azalia Esposito MD Primary Care Provider Unavailable Azalia Esposito MD Primary Care Provider Unavailable Shaw Cervantes MD Unavailable [phone] Ryan Jenkins MD Unavailable [phone] Rosalva Stern PA-C Unavailable Charbel Poe Primary Care Provider Unavailabl e Encounter Details Date Type Department Care Team Description 11/13/2015 Director Global Development Report Medical Records [address] [place] [address] Abstract, Provider Social History Tobacco Use Types [...] on filedocumented in this encounter Care Teams Bakery Manager Relationship Specialty Start Date End Date Azalia Esposito MD PCP - General Internal Medicine 12/02/1502/20/21 Azalia Esposito MD PCP - General 12/31/1411/30 Charbel Poe [address] [place] [address] PCP - General Internal Medicine 02/21/21 Shaw Cervantes MD [address] [place] [address] Specialist Cardiovascular Disease 02/18/21 Ryan Jenkins MD [address] [place] [address] Specialist Cardiology 02/18/21 Rosalva Stern PA-C [address] [place] [address] Specialist Cardiology 02/18/21 documented as of this encounter
--- OUTSIDE RECORDS SUMMARY | 2024-08-25 14:34 | XMS_ITS | Encounter Summary ---
Author Organization [facility] Address [address] [place] [address] Care Team Providers Care Vp Product Management Name Role Phone Timmy-Azalia Recinos MD Primary Care Provider Unavailable Shaw Cervantes MD Unavailable [phone] Ryan Jenkins MD Unavailable [phone] Rosalva Stern PA-C Unavailable Charbel Poe Primary Care Provider Unavailabl e Encounter Details Date Type Department Care Team Description 08/30/2019 [facility] Medical Records [address] [place] [address] Nella Pritchett, RECYCLER FORKLIFT DRIVER TRUCK DRIVER Social History Tobacco Use Types Packs/Day Years [...] on filedocumented in this encounter Care Teams Vp Product Management Relationship Specialty Start Date End Date Azalia Esposito MD PCP - General Internal Medicine 12/02/1502/20/21 Charbel Poe [address] [place] [address] PCP - General Internal Medicine 02/21/21 Shaw Cervantes MD Medical [facility] [address] [place], [place] [address] Specialist Cardiovascular Disease 02/18/21 Ryan Jenkins MD [address] [place] [address] Specialist Cardiology 02/18/21 Rosalva Stern PA-C [address] [place] [address] Specialist Cardiology 02/18/21 documented as of this encounter
--- OUTSIDE RECORDS SUMMARY | 2024-08-25 14:34 | XMS_ITS | Encounter Summary ---
Author Organization [facility] Address [address] [place] [address] Care Team Providers Care Nutrition Technician Name Role Phone Timmy-Azalia Recinos MD Primary Care Provider Unavailable Shaw Cervantes MD Unavailable Ryan Jenkins MD Unavailable [phone] Rosalva Stern PA-C Unavailable Charbel Poe Primary Care Provider Unavailabl e Encounter Details Date Type Department Care Team Description 08/25/2019 [facility] Medical Records [address] [place] [address] [place] Meijeremy [place] [address] [place] [address] Social History Tobacco Use Types Packs/Day Years [...] on filedocumented in this encounter Care Teams Nutrition Technician Relationship Specialty Start Date End Date Azalia Esposito MD PCP - General Internal Medicine 12/02/1502/20/21 Charbel Poe [address] [place] [address] PCP - General Internal Medicine 02/21/21 Shaw Cervantes MD [address] [place] [address] Specialist Cardiovascular Disease 02/18/21 Ryan Jenkins MD [address] [place] [address] Specialist Cardiology 02/18/21 Rosalva Stern PA-C [address] [place] [address] Specialist Cardiology 02/18/21 documented as of this encounter
--- OUTSIDE RECORDS SUMMARY | 2024-08-25 14:34 | XMS_ITS | Encounter Summary ---
Author Organization [facility] Address [address] [place] [address] Care Team Providers Care Station Engineer Name Role Phone Shaw Cervantes MD Unavailable Ryan Jenkins MD Unavailable [phone] Rosalva Stern PA-C Unavailable Charbel Poe Primary Care Provider Unavailabl e Encounter Details Date Type Department Care Team Description 11/17/2021 Transfer Records Medical Records [address] [place] [address] Abstract, Provider Social History Tobacco Use Types [...] on filedocumented in this encounter Care Teams Station Engineer Relationship Specialty Start Date End Date Charbel Poe [address] [facility] [address] [place] [address] PCP - General Internal Medicine 02/21/21 Shaw Cervantes MD Medical [facility] [address] [place] [address] Specialist Cardiovascular Disease 02/18/21 Ryan Jenkins MD [address] [facility] [address] [place] [address] Specialist Cardiology 02/18/21 Rosalva Stern PA-C [address] [place] [address] Specialist Cardiology 02/18/21 documented as of this encounter
--- OUTSIDE RECORDS SUMMARY | 2024-08-25 14:34 | XMS_ITS | Encounter Summary ---
Author Organization [facility] Address [address] [place] [address] Care Team Providers Care Food Safety Scientist Name Role Phone Azalia Esposito MD Primary Care Provider Unavailable Azalia Esposito MD Primary Care Provider Unavailable Shaw Cervantes MD Unavailable [phone] Ryan Jenkins MD Unavailable [phone] Rosalva Stern PA-C Unavailable Charbel Poe Primary Care Provider Unavailabl e Encounter Details Date Type Department Care Team Description 10/09/2015 Plant Inspector Report Medical Records [address] [place] [address] Dept., [facility] Occupational & Pt Social History Tobacco [...] on filedocumented in this encounter Care Teams Food Safety Scientist Relationship Specialty Start Date End Date Azalia Esposito MD PCP - General Internal Medicine 12/02/1502/20/21 Azalia Esposito MD PCP - General 12/31/1411/30 Charbel Poe [address] [place] [address] PCP - General Internal Medicine 02/21/21 Shaw Cervantes MD [address] [place] [address] Specialist Cardiovascular Disease 02/18/21 Ryan Jenkins MD [address] [place] [address] Specialist Cardiology 02/18/21 Rosalva Stern PA-C [address] [place] [address] Specialist Cardiology 02/18/21 documented as of this encounter
--- OUTSIDE RECORDS SUMMARY | 2024-08-25 14:34 | XMS_ITS | Encounter Summary ---
Author Organization [facility] Address [address] [place] [address] Care Team Providers Care Hardware Engineering Manager Name Role Phone Sudarshan Deluca Primary Care Provider Unav ailable Shin Núñez MD Primary Care Provider [phone] Azalia Esposito MD Primary Care Provider Unavailable Azalia Esposito MD Primary Care Provider Unavailable Shaw Cervantes MD Unavailable [phone] Ryan Jenkins MD Unavailable Rosalva Stern PA-C Unavailable Charbel Poe Primary Care Provider Unavailabl e Encounter Details Date Type Department Care Team Description 07/09/2009 Hospital Medical Records [address] [place] [address] Jason Recinos MD Social History Tobacco Use [...] on filedocumented in this encounter Care Teams Hardware Engineering Manager Relationship Specialty Start Date End Date Sudarshan Deluca PCP - General 05/06/10 12/30/14 Shin Núñez MD [address] [place] [address] PCP - General 07/08/09 05/05/10 Timmy-Azalia Recinos MD [address] [place] [address] PCP - General Internal Medicine 12/02/15 02/20/21 Azalia Esposito MD [address] [place] [address] PCP - General 12/31/14 12/01/15 Charbel Poe [address] [place] [address] PCP - General Internal Medicine 02/21/21 Shaw Cervantes MD [address] [place] [address] Specialist Cardiovascular Disease 02/18/21 Ryan Jenkins MD [address] [place] [address] Specialist Cardiology 02/18/21 Rosalva Stern PA-C [address] [place] [address] Specialist Cardiology 02/18/21 documented as of this encounter
--- OUTSIDE RECORDS SUMMARY | 2024-08-25 14:34 | XMS_ITS | Encounter Summary ---
Author Organization [facility] Address [address] [place] [address] Care Team Providers Care Liability Claims Representative Name Role Phone Azalia Esposito MD Primary Care Provider Unavailable Azalia Esposito MD Primary Care Provider Unavailable Shaw Cervantes MD Unavailable Ryan Jenkins MD Unavailable [phone] Rosalva Stern PA-C Unavailable Charbel Poe Primary Care Provider Unavailabl e Encounter Details Date Type Department Care Team Description 07/18/2015 Building Operator Report Medical Records [address] [place] [id number] [place] [address] Social History Tobacco Use Types Packs/Day Years [...] on filedocumented in this encounter Care Teams Liability Claims Representative Relationship Specialty Start Date End Date Azalia Esposito MD PCP - General Internal Medicine 12/02/1502/20/21 Azalia Esposito MD PCP - General 12/31/1411/30 Charbel Poe [address] [place] [address] PCP - General Internal Medicine 02/21/21 Shaw Cervantes MD [address] [place] [address] Specialist Cardiovascular Disease 02/18/21 Ryan Jenkins MD [address] [place] [address] Specialist Cardiology 02/18/21 Rosalva Stern PA-C [address] [place] [address] Specialist Cardiology 02/18/21 documented as of this encounter
--- OUTSIDE RECORDS SUMMARY | 2024-08-25 14:34 | XMS_ITS | Encounter Summary ---
Author Organization [facility] Address [address] [place] [address] Care Team Providers Care Mate Ship Name Role Phone Timmy-Azalia Recinos MD Primary Care Provider Unavailable Shaw Cervantes MD Unavailable [phone] Ryan Jenkins MD Unavailable [phone] Rosalva Stern PA-C Unavailable Charbel Poe Primary Care Provider Unavailabl e Encounter Details Date Type Department Care Team Description 11/08/2019 [facility] Medical Records [address] [place] [phone] [place] [address] Social History Tobacco Use Types Packs/Day Years [...] on filedocumented in this encounter Care Teams Mate Ship Relationship Specialty Start Date End Date Azalia Esposito MD PCP - General Internal Medicine 12/02/1502/20/21 Charbel Poe [address] [place] [address] PCP - General Internal Medicine 02/21/21 Shaw Cervantes MD Medical [facility] [address] [place], [place] [address] Specialist Cardiovascular Disease 02/18/21 Ryan Jenkins MD [address] [place] [address] Specialist Cardiology 02/18/21 Rosalva Stern PA-C [address] [place] [address] Specialist Cardiology 02/18/21 documented as of this encounter
--- OUTSIDE RECORDS SUMMARY | 2024-08-25 14:34 | XMS_ITS | Encounter Summary ---
Author Organization [facility] Address [address] [place] [address] Care Team Providers Care Shop Blacksmith Name Role Phone Timmy-Azalia Recinos MD Primary Care Provider Unavailable Shaw Cervantes MD Unavailable [phone] Ryan Jenkins MD Unavailable [phone] Rosalva Stern PA-C Unavailable Charbel Poe Primary Care Provider Unavailabl e Encounter Details Date Type Department Care Team Description 01/01/2020 Busboy Report Medical Records [address] [place] [address] Shaw Cervantes MD [address] [place] [address] Social History Tobacco Use Types Packs/Day Years [...] on filedocumented in this encounter Care Teams Shop Blacksmith Relationship Specialty Start Date End Date Azalia Esposito MD PCP - General Internal Medicine 12/02/1502/20/21 Charbel Poe [address] [place] [address] PCP - General Internal Medicine 02/21/21 Shaw Cervantes MD [address] [place] [address] Specialist Cardiovascular Disease 02/18/21 Ryan Jenkins MD [address] [place] [address] Specialist Cardiology 02/18/21 Rosalva Stern PA-C [address] [place] [address] Specialist Cardiology 02/18/21 documented as of this encounter
--- OUTSIDE RECORDS SUMMARY | 2024-08-25 14:34 | XMS_ITS | Encounter Summary ---
Author Organization [facility] Address [address] [place] [address] Care Team Providers Care Digital Sales Manager Name Role Phone Sudarshan Deluca Primary Care Provider Unav ailable Shin Núñez MD Primary Care Provider [phone] Azalia Esposito MD Primary Care Provider Unavailable Azalia Esposito MD Primary Care Provider Unavailable Shaw Cervantes MD Unavailable [phone] Ryan Jenkins MD Unavailable [phone] Rosalva Stern PA-C Unavailable Charbel Poe Primary Care Provider Unavailabl e Encounter Details Date Type Department Care Team Description 07/08/2009 Hospital Medical Records [address] [place] [address] Salvador Boateng Social History Tobacco Use Types Packs/Day Years [...] on filedocumented in this encounter Care Teams Digital Sales Manager Relationship Specialty Start Date End Date Sudarshan Deluca PCP - General 05/06/10 12/30/14 Shin Núñez MD [address] [place] [address] PCP - General 07/08/09 05/05/10 Timmy-Azalia Recinos MD [address] [place] [address] PCP - General Internal Medicine 12/02/15 02/20/21 Azalia Esposito MD [address] [place] [address] PCP - General 12/31/14 12/01/15 Charbel Poe [address] [place] [address] PCP - General Internal Medicine 02/21/21 Shaw Cervantes MD [address] [place] [address] Specialist Cardiovascular Disease 02/18/21 Ryan Jenkins MD [address] [place] [address] Specialist Cardiology 02/18/21 Rosalva Stern PA-C [address] [facility] [address] [place] [address] Specialist Cardiology 02/18/21 documented as of this encounter
--- OUTSIDE RECORDS SUMMARY | 2024-08-25 14:34 | XMS_ITS | Encounter Summary ---
Author Organization [facility] Address [address] [place] [address] Care Team Providers Care Cash Grain Farmer Name Role Phone Azalia Esposito MD Primary Care Provider Unavailable Shaw Cervantes MD Unavailable [phone] Ryan Jenkins MD Unavailable [phone] Rosalva Stern PA-C Unavailable Charbel Poe Primary Care Provider Unavailabl e Reason for Visit * Reason Onset Date Comments medication problems 11/16/2017 Encounter Details Date Type Department Care Team Description 11/16/2017 Telephone Adult [facility] - [address] [address] Azalia Esposito MD medication problems Social History [...] on filedocumented in this encounter Care Teams Cash Grain Farmer Relationship Specialty Start Date End Date Azalia Esposito MD PCP - General Internal Medicine 12/02/1502/20/21 Charbel Poe [address] [address] PCP - General Internal Medicine 02/21/21 Shaw Cervantes MD [address] [address] Specialist Cardiovascular Disease 02/18/21 Ryan Jenkins MD 300 [facility] [address] [place] [address] Specialist Cardiology 02/18/21 Rosalva Stern PA-C [address] [address] Specialist Cardiology 02/18/21 documented as of this encounter
--- OUTSIDE RECORDS SUMMARY | 2024-08-25 14:34 | XMS_ITS | Encounter Summary ---
Author Organization [facility] Address [address] [place] [address] Care Team Providers Care Field Artillery Targeting Technician Name Role Phone Azalia Esposito MD Primary Care Provider Unavailable Shaw Cervantes MD Unavailable [phone] Ryan Jenkins MD Unavailable [phone] Rosalva Stern PA-C Unavailable Charbel Poe Primary Care Provider Unavailabl e Reason for Visit * Reason Onset Date Comments [facility] Call 10/03/2019 Encounter Details Date Type Department Care Team Description 10/03/2019 Telephone Adult [address] [address] Azalia Esposito MD [facility] Call Social History [...] on filedocumented in this encounter Care Teams Field Artillery Targeting Technician Relationship Specialty Start Date End Date Azalia Esposito MD PCP - General Internal Medicine 12/02/1502/20/21 Charbel Poe [address] [place] [address] PCP - General Internal Medicine 02/21/21 Shaw Cervantes MD [address] [place] [address] Specialist Cardiovascular Disease 02/18/21 Ryan Jenkins MD [address] [place] [address] Specialist Cardiology 02/18/21 Rosalva Stern PA-C 300 [facility] [address] [place] [address] Specialist Cardiology 02/18/21 documented as of this encounter
--- OUTSIDE RECORDS SUMMARY | 2024-08-25 14:34 | XMS_ITS | Encounter Summary ---
Author Organization [facility] Address [address] [place] [address] Care Team Providers Care Tire Trucker Name Role Phone [place]-Azalia Recinos MD Primary Care Provider Unavailable Shaw Cervantes MD Unavailable [phone] Ryan Jenkins MD Unavailable [phone] Rosalva Stern PA-C Unavailable Charbel Poe Primary Care Provider Unavailabl e Reason for Visit * Reason Onset Date Comments REFERRAL 08/31/2016 Gastro Encounter Details Date Type Department Care Team Description 08/31/2016 Telephone Gastroenterology - [address] [id number] Kirit Recio MD REFERRAL (Gastro) Social History [...] on filedocumented in this encounter Care Teams Tire Trucker Relationship Specialty Start Date End Date [place]-Azalia Recinos MD PCP - General Internal Medicine 12/02/1502/20/21 Charbel Poe [address] [place] [address] PCP - General Internal Medicine 02/21/21 Shaw Cervantes MD [address] [place] [address] Specialist Cardiovascular Disease 02/18/21 Ryan Jenkins MD [address] [place] [address] Specialist Cardiology 02/18/21 Rosalva Stern PA-C [address] [place] [address] Specialist Cardiology 02/18/21 documented as of this encounter
--- OUTSIDE RECORDS SUMMARY | 2024-08-25 14:34 | XMS_ITS | Encounter Summary ---
Author Organization [facility] Address [address] [place] [address] Care Team Providers Care Loss Prevention Specialist Name Role Phone [place]-Azalia Recinos MD Primary Care Provider Unavailable Shaw Cervantes MD Unavailable Ryan Jnekins MD Unavailable [phone] Rosalva Stern PA-C Unavailable Charbel Poe Primary Care Provider Unavailabl e Reason for Visit * Reason Onset Date Comments EKG 09/25/2019 EKG Final Cardi Read Encounter Details Date Type Department Care Team Description 09/25/2019 Telephone Cardio PVC Med [address] [facility] [address] [place] [address] Ynes Cevallos MD EKG (EKG Final Cardi [...] EKG FINAL CARDI READ Faxed EKG to [phone] documented in this encounter Plan of Treatment Not on file documented as of this encounter Visit Diagnoses Not on filedocumented in this encounter Care Teams Loss Prevention Specialist Relationship Specialty Start Date End Date [place]-Azalia Recinos MD PCP - General Internal Medicine 12/02/1502/20/21 Charbel Poe 300 [facility] [address] [place] [address] PCP - General Internal Medicine 02/21/21 Shaw Cervantes MD [address] [place] [address] Specialist Cardiovascular Disease 02/18/21 Ryan Jenkins MD [address] [place] [address] Specialist Cardiology 02/18/21 Rosalva Stern PA-C 300 [facility] [address] [place] [address] Specialist Cardiology 02/18/21 documented as of this encounter
--- OUTSIDE RECORDS SUMMARY | 2024-08-25 14:34 | XMS_ITS | Encounter Summary ---
Author Organization [facility] Address [address] [place] [address] Care Team Providers Care Insurance Compliance Analyst Name Role Phone Azalia Esposito MD Primary Care Provider Unavailable Shaw Cervantes MD Unavailable [phone] Ryan Jenkins MD Unavailable [phone] Rosalva Stern PA-C Unavailable Charbel Poe Primary Care Provider Unavailabl e Encounter Details Date Type Department Care Team Description 08/09/2019 [facility] Medical Records [address] [place] [address] Tez Coyle MD Social History Tobacco Use [...] on filedocumented in this encounter Care Teams Insurance Compliance Analyst Relationship Specialty Start Date End Date Azalia Esposito MD PCP - General Internal Medicine 12/02/1502/20/21 Charbel Poe [address] [place] [address] PCP - General Internal Medicine 02/21/21 Shaw Cervantes MD 2 Medical [facility] [address] [place], [place] [address] Specialist Cardiovascular Disease 02/18/21 Ryan Jenkins MD [address] [place] [address] Specialist Cardiology 02/18/21 Rosalva Stern PA-C [address] [place] [address] Specialist Cardiology 02/18/21 documented as of this encounter
--- OUTSIDE RECORDS SUMMARY | 2024-08-25 14:34 | XMS_ITS | Encounter Summary ---
Author Organization [facility] Address [address] [place] [address] Care Team Providers Care Junior Software Engineer Name Role Phone Shaw Cervantes MD Unavailable [phone] Ryan Jenkins MD Unavailable [phone] Rosalva Stern PA-C Unavailable Charbel Poe Primary Care Provider Unavailabl e Encounter Details Date Type Department Care Team Description 12/31/2023 Building Appraiser Report Medical Records [address] [place] [address] Social History Tobacco Use Types Packs/Day Years [...] on filedocumented in this encounter Care Teams Junior Software Engineer Relationship Specialty Start Date End Date Charbel Poe 300 [facility] [address] [place] [address] PCP - General Internal Medicine 02/21/21 Shaw Cervantes MD 2 Medical [facility] [address] [place] [address] Specialist Cardiovascular Disease 02/18/21 Ryan Jenkins MD 300 [facility] [address] [place] [address] Specialist Cardiology 02/18/21 Rosalva Stern PA-C [address] [place] [address] Specialist Cardiology 02/18/21 documented as of this encounter
--- OUTSIDE RECORDS SUMMARY | 2024-08-25 14:34 | XMS_ITS | Encounter Summary ---
Author Organization [facility] Address [address] [place] [address] Care Team Providers Care Slabber Name Role Phone Azalia Esposito MD Primary Care Provider Unavailable Shaw Cervantes MD Unavailable [phone] Ryan Jenkins MD Unavailable Rosalva Stern PA-C Unavailable Charbel Poe Primary Care Provider Unavailabl e Reason for Visit * Reason Onset Date Comments Faxed Order 11/29/2019 [facility] Encounter Details Date Type Department Care Team Description 11/29/2019 Telephone Adult [address] [id number] Azalia Esposito MD Faxed Order (FAM GALDAMEZ [...] providers bin for signature, fax back to [phone] documented in this encounter Plan of Treatment Not on file documented as of this encounter Visit Diagnoses Not on filedocumented in this encounter Care Teams Slabber Relationship Specialty Start Date End Date [place]-Azalia Recinos MD PCP - General Internal Medicine 12/02/1502/20/21 Charbel Poe [address] [place] [address] PCP - General Internal Medicine 02/21/21 Shaw Cervantes MD [address] [place] [address] Specialist Cardiovascular Disease 02/18/21 Ryan Jenkins MD [address] [place] [address] Specialist Cardiology 02/18/21 Rosalva Stern PA-C [address] [place] [address] Specialist Cardiology 02/18/21 documented as of this encounter
--- OUTSIDE RECORDS SUMMARY | 2024-08-25 14:34 | XMS_ITS | Encounter Summary ---
Author Organization [facility] Address [address] [place] [address] Care Team Providers Care Quality Assurance Practice Manager Name Role Phone Timmy-Azalia Recinos MD Primary Care Provider Unavailable Shaw Cervantes MD Unavailable [phone] Ryan Jenkins MD Unavailable [phone] Rosalva Stern PA-C Unavailable Charbel Poe Primary Care Provider Unavailabl e Encounter Details Date Type Department Care Team Description 03/11/2020 Bus And Trolley Inspecting Dispatcher Report Medical Records [address] [place] [address] Rosalva Stern PA-C [address] [place] [id number] Social History Tobacco Use Types Packs/Day Years [...] on filedocumented in this encounter Care Teams Quality Assurance Practice Manager Relationship Specialty Start Date End Date Azalia Esposito MD PCP - General Internal Medicine 12/02/1502/20/21 Charbel Poe [address] [address] PCP - General Internal Medicine 02/21/21 Shaw Cervantes MD [address] [place] [address] Specialist Cardiovascular Disease 02/18/21 Ryan Jenkins MD [address] [place] [address] Specialist Cardiology 02/18/21 Rosalva Stern PA-C [address] [place] [address] Specialist Cardiology 02/18/21 documented as of this encounter
--- OUTSIDE RECORDS SUMMARY | 2024-08-25 14:35 | XMS_ITS | Encounter Summary ---
Author Organization [facility] Address [address] [place] [address] Care Team Providers Care Security Installation Sales Technician Name Role Phone Azalia Esposito MD Primary Care Provider Unavailable Shaw Cervantes MD Unavailable [phone] Ryan Jenkins MD Unavailable [phone] Rosalva Stern PA-C Unavailable Charbel Poe Primary Care Provider Unavailabl e Reason for Visit * Reason Onset Date Comments Faxed Order 10/10/2019 Encounter Details Date Type Department Care Team Description 10/10/2019 Telephone Adult [address] [phone] Azalia Esposito MD Faxed Order Social History [...] review, sign, date, and fax back to [phone]. Order #[id number] * Telephone Encounter - Joanna Moore - 10/13/2019 11:39 AM EDT Faxed order received from Roxanna Lepe. Please review, sign, date, and fax back to [phone]. Order #[id number] * Telephone Encounter - Natalia Almeida - 10/10/2019 9:53 AM EDT Orders from Roxanna Lepe to be signed and faxed back to [phone] . documented in this encounter Plan of Treatment Not on file documented as of this encounter Visit Diagnoses Not on filedocumented in this encounter Care Teams Security Installation Sales Technician Relationship Specialty Start Date End Date [place]-Azalia Recinos MD PCP - General Internal Medicine 12/02/1502/20/21 Charbel Poe 300 [facility] [address] [place] [address] PCP - General Internal Medicine 02/21/21 Shaw Cervantes MD 2 Medical [facility] [address] [place] [address] Specialist Cardiovascular Disease 02/18/21 Ryan Jenkins MD 300 [facility] [address] [place] [address] Specialist Cardiology 02/18/21 Rosalva Stern PA-C 300 [facility] [address] [place] [address] Specialist Cardiology 02/18/21 documented as of this encounter
== END 2024-08-25 13:31 | disposition home or self-care (01) ==
LOC: HO.ACS 13:00
PROVIDERS: PCP Internal Medicine; Visit Provider Internal Medicine
DX: Z79.01 Long term (current) use of anticoagulants (principal)

== ENCOUNTER 2024-08-28 12:41 | Outpatient (AMB) | payer MEDICARE, SELFPAY ==
--- NOTE | 2024-08-28 12:47 | A.OFFPC_ITS ---
Vital Signs 08/28/24 12:49 Height 5 ft 8 in Weight 196 lb 2 oz BMI 29.8 BP 122/62 Blood Pressure Location Lt brachial Position Sitting Pulse 93 Pulse Source Pulse Oximeter Temp 97.7 F Temp Source Temporal Artery Scan Pulse Oximetry (%) 94 Oxygen Delivery Method Room Air Intake Visit Reasons: [facility] 08/18 pneumonia Intake Note: Patient is here for hospital discharge and TCM follow up. Patient was discharged from [facility] on 08/18/24. Studio Receptionist Required: No Wood Borer: Not Required per policy Accompanied by: Self / Same As Patient Allergies head and shoulders shampoo Adverse Reaction (Severe, Uncoded 08/28/24 12:49) burn Medication List - Last Reconciled 08/28/24 by Charbel Poe MD albuterol sulfate 90 mcg/actuation 2 puffs inhalation Q6H PRN budesonide-formoterol 80-4.5 mcg/actuation 2 puffs inhalation BID 90 days ipratropium-albuterol 0.5 mg-3 mg(2.5 mg base)/3 mL 3 mL inhalation QID lisinopril 2.5 mg (1/2 x 5 mg) PO DAILY metoprolol succinate ER 100 mg (2 x 50 mg) PO DAILY multivitamin (Daily Multi-Vitamin tablet) 1 tab PO DAILY nebulizers To use every 4 hours omeprazole 40 mg PO BID 90 days Oxygen Home Use As directed spironolactone 12.5 mg (1/2 x 25 mg) PO DAILY warfarin 2.5 mg See Protocol PO TUTH warfarin 5 mg See Protocol PO SUMOWEFRSA Tobacco use date assessed: 08/28/24 Fall risk assessment: No Falls in past year Last assessed Fall Risk: 08/28/24 Dental Screening Dental Screen Date: 08/28/24 Did you have a dental visit in the last 12 months?: No Did you have a dental problem in the last 6 months where you did not have access to dental care?: No Was dental information given to patient?: No HPI [facility] 08/18 pneumonia HPI Details COPD on O2; sees pulmonary; recently admitted with bilat pneumonia; breathing back to baseline; needs f/u cxr TCM TCM Information Date of Discharge 08/18/24 Discharged From [facility] Interactive Contact Date (Reference documentation from this date) 08/21/24 PENDING SALE TO [facility] Medical History Pacemaker (~06/2020) Nonischemic cardiomyopathy Hand dermatitis Respiratory failure with hypoxia Chronic bronchitis Personal history of nicotine dependence Hypertension 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 Mother No problems noted. Brother Esophageal cancer Social History (Updated 08/28/24 @ 12:53 by FAVIOLA Santana) Household Members: None [facility] Do you presently have visiting nurse or other home services: No Alcohol intake: current Alcohol intake frequency: other Comment: no telesitter available at this time Patient Tobacco Use Status: Current someday Tobacco user Tobacco use type: Cigarette Cigarette Packs Per Day: 0.5 Cigarettes Per Day: 10 Years Smoked: (onset 18yo, 1-1.5ppd x 53yrs, 65pyh - now 1cig/day) e-Cigarette/Vaping Use: Never Used Second Hand Smoke Exposure: Yes Advance Directives Date on File: 07/01/20 service: No Current occupational status: retired Current occupation: RETIRED Current occupational exposures/hazards: No Cognitive needs: Yes (walker) Hearing needs: No Vision needs: No Questionnaire Thrive Questionnaire Date Thrive assessed: 08/15/24 ALEJO-7 AMB Questionnaire ALEJO-7 Date ALEJO - 7 assessed: 07/07/24 Source: Developed by Drs. Paramjit Wade, Brooke Browne, Max Roberson and colleagues, with an educational seble from [employer]. Review of Systems Const Denies chills, Denies headache(s) and Denies weight loss ENT Denies headache(s) Card Denies chest pain, Denies syncope, Denies irregular heart rhythm and Denies dyspnea Resp Denies chest congestion, Denies cough and Denies dyspnea GI Denies abdominal pain, Denies change in stool character, Denies nausea and Denies vomiting Musc Denies deformity and Denies joint swelling Neuro Denies syncope and Denies headache(s) Physical exam (Primary Care) Vital Signs: Last Vital Signs Temp 97.7 F 08/28/24 12:49 Pulse 93 08/28/24 12:49 BP 122/62 08/28/24 12:49 Pulse Ox 94 08/28/24 12:49 Oxygen Delivery Method Room Air 08/28/24 12:49 BMI result Body Mass Index 29.8 Tobacco/Smoking Status: Tobacco use Status Tobacco use date assessed 08/28/24 08/28/24 12:55 Patient Tobacco Use Status Current someday Tobacco 08/28/24 12:55 Tobacco use type Cigarette 08/28/24 12:55 e-Cigarette/Vaping Use Never Used 08/28/24 12:55 Thrive Assessment: Date of Thrive Assessment Date Thrive assessed 08/15/24 08/28/24 12:55 Const General: cooperative, comfortable, no acute distress and alert Neck Neck: Yes no lymphadenopathy Thyroid: Thyroid normal Resp Effort & Inspection: normal respiratory effort Auscultation: clear to auscultation bilaterally Percussion: percussion normal Cardio Jugular venous distension: no JVD Palpation: normal PMI Rate: regular rate Rhythm: regular rhythm Heart sounds: S1 normal heart sound present and S2 normal heart sound present GI Inspection: Yes normal to inspection Palpation (GI): No hepatosplenomegaly present Skin General skin exam: no rashes or lesions noted Extrem General: Yes no clubbing, cyanosis or edema Coding Level of Care Code Est Pt Level 3 (27330) Diagnoses Pneumonia J18.9 Assessment & Plan Assessment & Plan (1) Pneumonia: Code(s): J18.9 - Pneumonia, unspecified organism Category: Medical Plan: improved; recheck cxr Orders: Orders XR chest 2V Today J18.9 - Pneumonia, unspecified organism
[2024-08-28 12:49] VITALS: BP 122/62; PULSE 93; TEMP 36.5; O2SAT 94; BMI 29.8
--- OUTSIDE RECORDS SUMMARY | 2024-08-28 14:41 | XMS_ITS | Clinical Summary ---
Author Organization [facility] Address [address] [place] [address] Care Team Providers Care Special Projects Manager Name Role Phone Charbel Poe MD Primary Care Provider Surgical History Surgery Date Site/Laterality Comments OTHER SURGICAL HISTORY PROCEDURE: DENIES PREVIOUS SURGERY COLONOSCOPY 07/09/2009 PROCEDURE: HISTORICAL COLONOSCOPY; COMMENT: [facility]. Diverticulosis. UPPER GASTROINTESTINAL ENDOSCOPY 07/09/2009 PROCEDURE: [place] UPPER GI ENDOSCOPY PERFORMED; COMMENT: [facility], GI bleed. No significant abnormalities. Medical History Medical History Date Comments Iron deficiency anemia 07/16/2009 DX:Iron d eficiency anemia Tobacco abuse 07/16/2009 DX:Tobacco abuse ; COMMENT: Has tried Wellbutrin, Chantix, hypnotherapy, nicotine patch and gum 10/22 - [employer] unable to contact after 5 attempts Diverticulosis, sigmoid 07/16/2009 DX:Diver ticulosis, sigmoid; COMMENT: Lower GI bleed 06/23. Admitted to [facility]. Colonoscopy 06/23. 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 Stack Severe obstructive disease by [...] Documents on File Type Date Recorded Patient Drug Safety Assistant Expl anation Health Care Decision (hx) 02/08/2020 AD PAZ DIRECTIVE Health Care Decision (hx) 02/08/2020 AD PAZ DIRECTIVE Health Care Decision (hx) 02/08/2020 AD PAZ DIRECTIVE Health Care Decision (hx) 02/08/2020 AD PAZ DIRECTIVE Health Care Decision (hx) 02/08/2020 AD PAZ DIRECTIVE Care Teams Special Projects Manager Relationship Specialty Start Date End Date Charbel Poe MD [address] [place] [address] [address] [place] [address] PCP - General Internal Medicine 02/21/21
== END 2024-08-28 13:08 | disposition home or self-care (01) ==
PROVIDERS: PCP Internal Medicine; Visit Provider Internal Medicine
DX: J18.9 Pneumonia, unspecified organism (principal)

== ENCOUNTER → 2024-08-28 12:41 | Outpatient (BNVA) | payer MEDICARE, SELFPAY | PROVIDERS: PCP Internal Medicine; Visit Provider Internal Medicine | DX: J18.9 Pneumonia, unspecified organism (principal) | CPT/HCPCS: 99212 ==

== ENCOUNTER 2024-08-29 10:37 | Outpatient (REF) | payer MEDICARE, SELFPAY ==
--- NOTE | ~2024-08-29 | XR_ITS ---
EXAMINATION: XR CHEST 2 VIEWS HISTORY: J18.9 - Pneumonia, unspecified organism COMPARISON: Comparison is made with the prior examination dated 08/14/2024. FINDINGS: PA and lateral views of the chest are submitted. A left subclavian dual-chamber pacemaker is unchanged in position. The lungs are hyperinflated, consistent with COPD. There are linear opacities at the right lung base consistent with subsegmental atelectasis. The left lung is clear. There is no pleural effusion, pneumothorax, or pulmonary vascular congestion. The heart is normal in size. The bones are intact. XR/XR chest 2V IMPRESSION: COPD. Right basilar subsegmental atelectasis. Electronically signed by: Paramjit Kaiser MD 08/29/2024 01:11 PM EDT
--- OUTSIDE RECORDS SUMMARY | 2024-08-29 12:32 | XMS_ITS | Clinical Summary ---
Author Organization [facility] Address [address] [place] [address] Care Team Providers Care Appraisal Coordinator Name Role Phone Charbel Poe MD Primary Care Provider [phone] Surgical History Surgery Date Site/Laterality Comments OTHER SURGICAL HISTORY PROCEDURE: DENIES PREVIOUS SURGERY COLONOSCOPY 07/09/2009 PROCEDURE: HISTORICAL COLONOSCOPY; COMMENT: [facility]. Diverticulosis. UPPER GASTROINTESTINAL ENDOSCOPY 07/09/2009 PROCEDURE: [place] UPPER GI ENDOSCOPY PERFORMED; COMMENT: [facility], GI bleed. No significant abnormalities. Medical History Medical History Date Comments Iron deficiency anemia 07/16/2009 DX:Iron d eficiency anemia Tobacco abuse 07/16/2009 DX:Tobacco abuse ; COMMENT: Has tried Wellbutrin, Chantix, hypnotherapy, nicotine patch and gum 10/22 - [employer] unable to contact after 5 attempts Diverticulosis, sigmoid 07/16/2009 DX:Diver ticulosis, sigmoid; COMMENT: Lower GI bleed 06/23. Admitted to [facility]. Colonoscopy 06/23. 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) 07/16/2009 DX:COPD (chronic obstructive pulmonary disease) ([facility]); COMMENT: Dr. Stack Severe obstructive disease [...] Documents on File Type Date Recorded Patient Vice President Of Advertising Expl anation Health Care Decision (hx) 02/08/2020 AD PAZ DIRECTIVE Health Care Decision (hx) 02/08/2020 AD PAZ DIRECTIVE Health Care Decision (hx) 02/08/2020 AD PAZ DIRECTIVE Health Care Decision (hx) 02/08/2020 AD PAZ DIRECTIVE Health Care Decision (hx) 02/08/2020 AD PAZ DIRECTIVE Care Teams Appraisal Coordinator Relationship Specialty Start Date End Date Charbel Poe MD [address] [place] [address] [address] [place] [address] PCP - General Internal Medicine 02/21/21
--- OUTSIDE RECORDS SUMMARY | 2024-08-29 12:32 | XMS_ITS | Encounter Summary ---
Author Organization [facility] Address [address] [place] [address] Care Team Providers Care Menu Planner Name Role Phone Tim[place]-Azalia Recinos MD Primary Care Provider Unavailable Shaw Cervantes MD Unavailable [phone] Ryan Jenkins MD Unavailable [phone] Rosalva Stern PA-C Unavailable Charbel Poe Primary Care Provider Unavailabl e Encounter Details Date Type Department Care Team Description 01/14/2016 Forklift Truck Operator Report Medical Records [address] [place] [id number] [place] [address] Social History Tobacco Use Types Packs/Day Years [...] on filedocumented in this encounter Care Teams Menu Planner Relationship Specialty Start Date End Date Azalia Esposito MD PCP - General Internal Medicine 12/02/1502/20/21 Charbel Poe [address] [address] PCP - General Internal Medicine 02/21/21 Shaw Cervantes MD [address] [place] [address] Specialist Cardiovascular Disease 02/18/21 Ryan Jenkins MD [address] [place] [address] Specialist Cardiology 02/18/21 Rosalva Stern PA-C [address] [place] [address] Specialist Cardiology 02/18/21 documented as of this encounter
--- OUTSIDE RECORDS SUMMARY | 2024-08-29 12:32 | XMS_ITS | Encounter Summary ---
Author Organization [facility] Address [address] [place] [address] Care Team Providers Care Jet Handler Name Role Phone Azalia Esposito MD Primary Care Provider Unavailable Azalia Esposito MD Primary Care Provider Unavailable Shaw Cervantes MD Unavailable [phone] Ryan Jenkins MD Unavailable [phone] Rosalva Stern PA-C Unavailable Charbel Poe Primary Care Provider Unavailabl e Encounter Details Date Type Department Care Team Description 10/09/2015 Computer Training Specialist Report Medical Records [address] [place] [address] Dept., [facility] Occupational & Pt Social History Tobacco [...] on filedocumented in this encounter Care Teams Jet Handler Relationship Specialty Start Date End Date Azalia Esposito MD PCP - General Internal Medicine 12/02/1502/20/21 Azalia Esposito MD PCP - General 12/31/1411/30 Charbel Poe [address] [place] [address] PCP - General Internal Medicine 02/21/21 Shaw Cervantes MD [address] [place] [address] Specialist Cardiovascular Disease 02/18/21 Ryan Jenkins MD [address] [place] [address] Specialist Cardiology 02/18/21 Rosalva Stern PA-C [address] [place] [address] Specialist Cardiology 02/18/21 documented as of this encounter
--- OUTSIDE RECORDS SUMMARY | 2024-08-29 12:32 | XMS_ITS | Encounter Summary ---
Author Organization [facility] Address [address] [place] [address] Care Team Providers Care Theoretical Physics Teacher Name Role Phone Timmy-Azalia Recinos MD Primary Care Provider Unavailable Shaw Cervantes MD Unavailable [phone] Ryan Jenkins MD Unavailable [phone] Rosalva Stern PA-C Unavailable Charbel Poe Primary Care Provider Unavailabl e Encounter Details Date Type Department Care Team Description 09/27/2019 Home Health Certification Medical Records [address] [place] [address] [facility] Social History Tobacco Use Types Packs/Day [...] on filedocumented in this encounter Care Teams Theoretical Physics Teacher Relationship Specialty Start Date End Date [place] Esposito MD PCP - General Internal Medicine 12/02/1502/20/21 Charbel Poe [address] [address] PCP - General Internal Medicine 02/21/21 Shaw Cervantes MD [address] [place] [address] Specialist Cardiovascular Disease 02/18/21 Ryan Jenkins MD [address] [place] [address] Specialist Cardiology 02/18/21 Rosalva Stern PA-C [address] [place] [address] Specialist Cardiology 02/18/21 documented as of this encounter
--- OUTSIDE RECORDS SUMMARY | 2024-08-29 12:32 | XMS_ITS | Encounter Summary ---
Author Organization [facility] Address [address] [place] [address] Care Team Providers Care Machine Marker Name Role Phone Spooner-Azalia Recinos MD Primary Care Provider Unavailable Shaw Cervantes MD Unavailable [phone] Ryan Jenkins MD Unavailable [phone] Rosalva Stern PA-C Unavailable Charbel Poe Primary Care Provider Unavailabl e Reason for Visit * Reason Onset Date Comments EKG 09/25/2019 EKG Final Cardi Read Encounter Details Date Type Department Care Team Description 09/25/2019 Telephone Cardio PVC Med [address] [facility] [address] [place] [address] Ynes Cevallos MD EKG (EKG Final Cardi [...] EKG FINAL CARDI READ Faxed EKG to [phone] documented in this encounter Plan of Treatment Not on file documented as of this encounter Visit Diagnoses Not on filedocumented in this encounter Care Teams Machine Marker Relationship Specialty Start Date End Date Spooner-Az[place] Recinos MD PCP - General Internal Medicine 12/02/1502/20/21 Charbel Poe 300 [facility] [address] [place] [address] PCP - General Internal Medicine 02/21/21 Shaw Cervantes MD [address] [place] [address] Specialist Cardiovascular Disease 02/18/21 Ryan Jenkins MD [address] [place] [address] Specialist Cardiology 02/18/21 Rosalva Stern PA-C 300 [facility] [address] [place] [address] Specialist Cardiology 02/18/21 documented as of this encounter
--- OUTSIDE RECORDS SUMMARY | 2024-08-29 12:32 | XMS_ITS | Encounter Summary ---
Author Organization [facility] Address [address] [place] [address] Care Team Providers Care Hims Clerk Name Role Phone Sudarshan Deluca Primary Care Provider Unav ailable Shin Núñez MD Primary Care Provider [phone] [place] Esposito MD Primary Care Provider Unavailable [place] Esposito MD Primary Care Provider Unavailable Shaw Cervantes MD Unavailable [phone] Ryan Jenkins MD Unavailable [phone] Rosalva Stern PA-C Unavailable Charbel Poe Primary Care Provider Unavailabl e Encounter Details Date Type Department Care Team Description 07/08/2009 Hospital Medical Records [address] [place] [address] Salvador Boateng Social History Tobacco Use Types [...] on filedocumented in this encounter Care Teams Hims Clerk Relationship Specialty Start Date End Date Sudarshan Deluca PCP - General 05/06/10 12/30/14 Shin Núñez MD [address] [place] [address] PCP - General 07/08/09 05/05/10 Timmy-Azalia Recinos MD [address] [place] [address] PCP - General Internal Medicine 12/02/15 02/20/21 [place] Esposito MD [address] [place] [address] PCP - General 12/31/14 12/01/15 Charbel Poe [address] [place] [address] PCP - General Internal Medicine 02/21/21 Shaw Cervantes MD [address] [place] [address] Specialist Cardiovascular Disease 02/18/21 Ryan Jenkins MD [address] [place] [address] Specialist Cardiology 02/18/21 Rosalva Stern PA-C [address] [facility] [address] [place] [address] Specialist Cardiology 02/18/21 documented as of this encounter
--- OUTSIDE RECORDS SUMMARY | 2024-08-29 12:32 | XMS_ITS | Encounter Summary ---
Author Organization [facility] Address [address] [place] [address] Care Team Providers Care Material Handler 1St Shift Name Role Phone [place] Esposito MD Primary Care Provider Unavailable [place] Esposito MD Primary Care Provider Unavailable Shaw Cervantes MD Unavailable [phone] Ryan Jenkins MD Unavailable [phone] Rosalva Stern PA-C Unavailable Charbel Poe Primary Care Provider Unavailabl e Encounter Details Date Type Department Care Team Description 11/13/2015 Supervisor Pyrotechnic Loading Report Medical Records [address] [place] [address] Abstract, Provider Social History Tobacco Use Types [...] on filedocumented in this encounter Care Teams Material Handler 1St Shift Relationship Specialty Start Date End Date [place] Esposito MD PCP - General Internal Medicine 12/02/1502/20/21 [place] Esposito MD PCP - General 12/31/1411/30 Charbel Poe [address] [place] [address] PCP - General Internal Medicine 02/21/21 Shaw Cervantes MD [address] [place] [address] Specialist Cardiovascular Disease 02/18/21 Ryan Jenkins MD [address] [place] [address] Specialist Cardiology 02/18/21 Rosalva Stern PA-C [address] [place] [address] Specialist Cardiology 02/18/21 documented as of this encounter
--- OUTSIDE RECORDS SUMMARY | 2024-08-29 12:32 | XMS_ITS | Encounter Summary ---
Author Organization [facility] Address [address] [place] [address] Care Team Providers Care Lpn Name Role Phone Timmy-Azalia Recinos MD Primary Care Provider Unavailable Shaw Cervantes MD Unavailable [phone] Ryan Jenkins MD Unavailable [phone] Rosalva Stern PA-C Unavailable Charbel Poe Primary Care Provider Unavailabl e Encounter Details Date Type Department Care Team Description 08/25/2019 [facility] Medical Records [address] [place] [address] Valencia Meijeremy [place] [address] [place] [address] Social History Tobacco Use Types Packs/Day Years [...] on filedocumented in this encounter Care Teams Lpn Relationship Specialty Start Date End Date [place] Esposito MD PCP - General Internal Medicine 12/02/1502/20/21 Charbel Poe [address] [place] [address] PCP - General Internal Medicine 02/21/21 Shaw Cervantes MD [address] [place] [address] Specialist Cardiovascular Disease 02/18/21 Ryan Jenkins MD [address] [place] [address] Specialist Cardiology 02/18/21 Rosalva Stern PA-C [address] [place] [address] Specialist Cardiology 02/18/21 documented as of this encounter
--- OUTSIDE RECORDS SUMMARY | 2024-08-29 12:33 | XMS_ITS | Encounter Summary ---
Author Organization [facility] Address [address] [place] [address] Care Team Providers Care Client Account Manager Name Role Phone Timmy-Azalia Recinos MD Primary Care Provider Unavailable Shaw Cervantes MD Unavailable [phone] Ryan Jenkins MD Unavailable [phone] Rosalva Stern PA-C Unavailable Charbel Poe Primary Care Provider Unavailabl e Encounter Details Date Type Department Care Team Description 01/01/2020 Shrimp Boat Captain Report Medical Records [address] [place] [address] Shaw Cervantes MD [address] [place] [address] Social History Tobacco Use Types Packs/Day Years [...] on filedocumented in this encounter Care Teams Client Account Manager Relationship Specialty Start Date End Date Azalia Esposito MD PCP - General Internal Medicine 12/02/1502/20/21 Charbel Poe [address] [place] [address] PCP - General Internal Medicine 02/21/21 Shaw Cervantes MD [address] [place] [address] Specialist Cardiovascular Disease 02/18/21 Ryan Jenkins MD [address] [place] [address] Specialist Cardiology 02/18/21 Rosalva Stern PA-C [address] [place] [address] Specialist Cardiology 02/18/21 documented as of this encounter
--- OUTSIDE RECORDS SUMMARY | 2024-08-29 12:33 | XMS_ITS | Encounter Summary ---
Author Organization [facility] Address [address] [place] [address] Care Team Providers Care Sketch Liner Name Role Phone Shaw Cervantes MD Unavailable Ryan Jenkins MD Unavailable Rosalva Stern PA-C Unavailable Charbel Poe Primary Care Provider Unavailabl e Encounter Details Date Type Department Care Team Description 06/18/2023 Orders Only [facility] Thoracic Surgery [place] 299 [facility] [address] [place] [address] Agnieszka Zapata MD 299 [facility] [address] [place] [address] Pulmonary nodules (Primary Dx) Social History Tobacco [...] field documented in this encounter Care Teams Sketch Liner Relationship Specialty Start Date End Date Charbel Poe 300 [facility] [address] [place] [address] PCP - General Internal Medicine 02/21/21 Shaw Cervantes MD [address] [place] [address] Specialist Cardiovascular Disease 02/18/21 Ryan Jenkins MD [address] [place] [address] Specialist Cardiology 02/18/21 Rosalva Stern PA-C [address] [place] [address] Specialist Cardiology 02/18/21 documented as of this encounter
--- OUTSIDE RECORDS SUMMARY | 2024-08-29 12:33 | XMS_ITS | Encounter Summary ---
Author Organization [facility] Address [address] [place] [address] Care Team Providers Care Research Program Manager Name Role Phone [place]-Az[place] Recinos MD Primary Care Provider Unavailable Shaw Cervantes MD Unavailable [phone] Ryan Jenkins MD Unavailable [phone] Rosalva Stern PA-C Unavailable Charbel Poe Primary Care Provider Unavailabl e Reason for Referral * EXTERNAL (Priority) - Authorized/Booked Specialty Diagnoses / Procedures Referred By Contac t Referred To Contact Pulmonology Procedures REFERRAL TO PULMONOLOGY Angel Shay PA-C [address] [place] [address] Calos Almeida MD [address] [place] [id number] Referral ID Status Reason Start Date Expiration Date V isits Requested Visits Authorized SEE NOTE Authorized/B ooked 11/27/2016 03/11/2017 1 1 Encounter Details Date Type Department Care Team Description 11/24/2016 Telephone Adult Medicine - [place] [address] [place] [address] Angel Shay PA-C Social History Tobacco Use [...] on filedocumented in this encounter Care Teams Research Program Manager Relationship Specialty Start Date End Date Sebec-Azalia Recinos MD PCP - General Internal Medicine 12/02/1502/20/21 Charbel Poe 300 [facility] [address] [place] [address] PCP - General Internal Medicine 02/21/21 Shaw Cervantes MD [address] [place] [address] Specialist Cardiovascular Disease 02/18/21 Ryan Jenkins MD [address] [place] [address] Specialist Cardiology 02/18/21 Rosalva Stern PA-C 300 [facility] 154 [place] [address] Specialist Cardiology 02/18/21 documented as of this encounter
--- OUTSIDE RECORDS SUMMARY | 2024-08-29 12:33 | XMS_ITS | Encounter Summary ---
Author Organization [facility] Address [address] [place] [address] Care Team Providers Care Executive Account Manager Name Role Phone [place]-Az[place] Recinos MD Primary Care Provider Unavailable Shaw Cervantes MD Unavailable [phone] Ryan Jenkins MD Unavailable [phone] Rosalva Stern PA-C Unavailable Charbel Poe Primary Care Provider Unavailthuan e Reason for Visit * Reason Onset Date Comments Medical Records 08/02/2020 Encounter Details Date Type Department Care Team Description 08/02/2020 Telephone Medical Records [address] [place] [address] Abstract, Provider Medical Records Social History Tobacco [...] 08/02/2020 4:39 PM EST Faxed records to [facility] Att: Kirit Castro For New Appt. [phone]/ [phone] documented in this encounter Plan of Treatment Not on file documented as of this encounter Visit Diagnoses Not on filedocumented in this encounter Care Teams Executive Account Manager Relationship Specialty Start Date End Date [place]-Az[place] Recinos MD PCP - General Internal Medicine 12/02/1502/20/21 Charbel Poe [address] [place] [address] PCP - General Internal Medicine 02/21/21 Shaw Cervantes MD [address] [place] [address] Specialist Cardiovascular Disease 02/18/21 Ryan Jenkins MD [address] [place] [address] Specialist Cardiology 02/18/21 Rosalva Stern PA-C [address] [place] [address] Specialist Cardiology 02/18/21 documented as of this encounter
--- OUTSIDE RECORDS SUMMARY | 2024-08-29 12:33 | XMS_ITS | Encounter Summary ---
Author Organization [facility] Address [address] [place] [address] Care Team Providers Care Security Project Manager Name Role Phone Timmy-Azalia Recinos MD Primary Care Provider Unavailable Shaw Cervantes MD Unavailable [phone] Ryan Jenkins MD Unavailable [phone] Rosalva Stern PA-C Unavailable Charbel Poe Primary Care Provider Unavailabl e Encounter Details Date Type Department Care Team Description 12/27/2020 Cartoon Animator Report Medical Records [address] [place] [address] [facility] [address] [place] [address] Social History Tobacco Use Types Packs/Day Years [...] filedocumented in this encounter Care Teams Security Project Manager Relationship Specialty Start Date End Date Azalai Esposito MD PCP - General Internal Medicine 12/02/1502/20/21 Charbel Poe [address] [place] [address] PCP - General Internal Medicine 02/21/21 Shaw Cervantes MD [address] [place] [address] Specialist Cardiovascular Disease 02/18/21 Ryan Jenkins MD [address] [place] [address] Specialist Cardiology 02/18/21 Rosalva Stern PA-C [address] [place] [address] Specialist Cardiology 02/18/21 documented as of this encounter
--- OUTSIDE RECORDS SUMMARY | 2024-08-29 12:33 | XMS_ITS | Encounter Summary ---
Author Organization [facility] Address [address] [place] [address] Care Team Providers Care Public Services Assistant Name Role Phone Timmy-Azalia Recinos MD Primary Care Provider Unavailable Shaw Cervantes MD Unavailable [phone] Ryan Jenkins MD Unavailable [phone] Rosalva Stern PA-C Unavailable Charbel Poe Primary Care Provider Unavailabl e Encounter Details Date Type Department Care Team Description 08/24/2019 [facility] Medical Records [address] [place] [address] Onesimo Batista Social History Tobacco Use Types [...] on filedocumented in this encounter Care Teams Public Services Assistant Relationship Specialty Start Date End Date Azalia Esposito MD PCP - General Internal Medicine 12/02/1502/20/21 Charbel Poe [address] [place] [address] PCP - General Internal Medicine 02/21/21 Shaw Cervantes MD Medical [facility] [address] [place], [place] [address] Specialist Cardiovascular Disease 02/18/21 Ryan Jenkins MD [address] [place] [address] Specialist Cardiology 02/18/21 Rosalva Stern PA-C [address] [place] [address] Specialist Cardiology 02/18/21 documented as of this encounter
--- OUTSIDE RECORDS SUMMARY | 2024-08-29 12:33 | XMS_ITS | Encounter Summary ---
Author Organization [facility] Address [address] [place] [address] Care Team Providers Care Frame Stripper Name Role Phone Timmy-Azalia Recinos MD Primary Care Provider Unavailable Shaw Cervantes MD Unavailable [phone] Ryan Jenkins MD Unavailable [phone] Rosalva Stern PA-C Unavailable Charbel Poe Primary Care Provider Unavailabl e Encounter Details Date Type Department Care Team Description 09/14/2018 Business Doc Medical Records [address] [place] [address] Abstract, Provider Social History Tobacco Use Types [...] on filedocumented in this encounter Care Teams Frame Stripper Relationship Specialty Start Date End Date Azalia Esposito MD PCP - General Internal Medicine 12/02/1502/20/21 Charbel Poe [address] [address] PCP - General Internal Medicine 02/21/21 Shaw Cervantes MD [address] [place] [address] Specialist Cardiovascular Disease 02/18/21 Ryan Jenkins MD [address] [place] [address] Specialist Cardiology 02/18/21 Rosalva Stern PA-C [address] [place] [address] Specialist Cardiology 02/18/21 documented as of this encounter
--- OUTSIDE RECORDS SUMMARY | 2024-08-29 12:33 | XMS_ITS | Encounter Summary ---
Author Organization [facility] Address [address] [place] [address] Care Team Providers Care Glacing Machine Tender Name Role Phone Azalia Esposito MD Primary Care Provider Unavailable Shaw Cervantes MD Unavailable [phone] Ryan Jenkins MD Unavailable Rosalva Stern PA-C Unavailable Charbel Poe Primary Care Provider Unavailabl e Encounter Details Date Type Department Care Team Description 08/09/2019 [facility] Medical Records [address] [place] [address] Tez Coyle MD Social History Tobacco Use [...] on filedocumented in this encounter Care Teams Glacing Machine Tender Relationship Specialty Start Date End Date Azalia Esposito MD PCP - General Internal Medicine 12/02/1502/20/21 Charbel Poe [address] [place] [address] PCP - General Internal Medicine 02/21/21 Shaw Cervantes MD 2 Medical [facility] [address] [place], [place] [address] Specialist Cardiovascular Disease 02/18/21 Ryan Jenkins MD [address] [place] [address] Specialist Cardiology 02/18/21 Rosalva Stern PA-C [address] [place] [address] Specialist Cardiology 02/18/21 documented as of this encounter
--- OUTSIDE RECORDS SUMMARY | 2024-08-29 12:33 | XMS_ITS | Encounter Summary ---
Author Organization [facility] Address [address] [place] [address] Care Team Providers Care Clinical Orthoptist Name Role Phone Timmy-Azalia Recinos MD Primary Care Provider Unavailable Shaw Cervantes MD Unavailable [phone] Ryan Jenkins MD Unavailable [phone] Rosalva Stern PA-C Unavailable Charbel Poe Primary Care Provider Unavailabl e Encounter Details Date Type Department Care Team Description 08/09/2019 [facility] Medical Records [address] [place] [address] Jessica Valadez Social History Tobacco Use Types [...] on filedocumented in this encounter Care Teams Clinical Orthoptist Relationship Specialty Start Date End Date Azalia Esposito MD PCP - General Internal Medicine 12/02/1502/20/21 Charbel Poe [address] [place] [address] PCP - General Internal Medicine 02/21/21 Shaw Cervantes MD [address] Medical [facility] [address] [place], [place] [address] Specialist Cardiovascular Disease 02/18/21 Ryan Jenkins MD [address] [place] [address] Specialist Cardiology 02/18/21 Rosalva Stern PA-C [address] [place] [address] Specialist Cardiology 02/18/21 documented as of this encounter
--- OUTSIDE RECORDS SUMMARY | 2024-08-29 12:33 | XMS_ITS | Encounter Summary ---
Author Organization [facility] Address [address] [place] [address] Care Team Providers Care Electrical Systems Engineer Name Role Phone Timmy-Azalia Recinos MD Primary Care Provider Unavailable Shaw Cervantes MD Unavailable [phone] Ryan Jenkins MD Unavailable [phone] Rosalva Stern PA-C Unavailable Charbel Poe Primary Care Provider Unavailabl e Encounter Details Date Type Department Care Team Description 08/09/2019 [facility] Medical Records [address] [place] [address] Johan Barragan MD Social History Tobacco Use [...] on filedocumented in this encounter Care Teams Electrical Systems Engineer Relationship Specialty Start Date End Date Azalia Esposito MD PCP - General Internal Medicine 12/02/1502/20/21 Charbel Poe [address] [place] [address] PCP - General Internal Medicine 02/21/21 Shaw Cervantes MD Medical [facility] [address] [place], [place] [address] Specialist Cardiovascular Disease 02/18/21 Ryan Jenkins MD [address] [place] [address] Specialist Cardiology 02/18/21 Rosalva Stern PA-C [address] [place] [address] Specialist Cardiology 02/18/21 documented as of this encounter
--- OUTSIDE RECORDS SUMMARY | 2024-08-29 12:33 | XMS_ITS | Encounter Summary ---
Author Organization [facility] Address [address] [place] [address] Care Team Providers Care Guitar Player Name Role Phone [place] Recinos MD Primary Care Provider Unavailable Shaw Cervantes MD Unavailable [phone] Ryan Jenkins MD Unavailable [phone] Rosalva Stern PA-C Unavailable Charbel Poe Primary Care Provider Unavailthuan e Encounter Details Date Type Department Care Team Description 03/17/2018 Orders Only Pulmonology - [place] [address] [facility] [address] [place] [address] Miky Lockett MD 175 [facility] [address] [place] [address] Stage 3 severe COPD by [...] Procedure Name Priority Date/Time Associated Diagnosis Comments [place] NONINVASIVE EAR/PULSE OXIMETRY OVERNIGHT MONITOR Routine 02/14/2018 [...] (HCC) documented in this encounter Care Teams Guitar Player Relationship Specialty Start Date End Date [place]-Az[place] Recinos MD PCP - General Internal Medicine 12/02/1502/20/21 Charbel Poe [address] [address] PCP - General Internal Medicine 02/21/21 Shaw Cervantes MD 2 Medical [facility] [address] [place] [address] Specialist Cardiovascular Disease 02/18/21 Ryan Jenkins MD 300 [facility] [address] [place] [address] Specialist Cardiology 02/18/21 Rosalva Stern PA-C 300 [facility] [address] [place] [address] Specialist Cardiology 02/18/21 documented as of this encounter
--- OUTSIDE RECORDS SUMMARY | 2024-08-29 12:33 | XMS_ITS | Encounter Summary ---
Author Organization [facility] Address [address] [place] [address] Care Team Providers Care Personnel Officer Name Role Phone Azalia Esposito MD Primary Care Provider Unavailable Shaw Cervantes MD Unavailable [phone] Ryan Jenkins MD Unavailable [phone] Rosalva Stern PA-C Unavailable Charbel Poe Primary Care Provider Unavailabl e Reason for Referral * EXTERNAL (Routine) - Authorized/Booked Specialty Diagnoses / Procedures Referred By Contmima dumont Referred To Contact Ophthalmology Procedures REFERRAL TO EXTERNAL OPHTHALMOLOGY Azalia Esposito MD [address] [place] [address] [facility] [address] [place] [address] Referral ID Status Reason Start Date Expiration Date V isits Requested Visits Authorized SEE NOTE Authorized/B ooked 09/26/2017 12/27/2017 1 1 Reason for Visit * Reason Onset Date Comments Preventive Medicine Physician Feedback 09/17/2017 Encounter Details Date Type Department Care Team Description 09/17/2017 Telephone Adult Medicine - [place] [address] [place] [address] Azalia Esposito MD Preventive Medicine Physician Feedback Social History Tobacco Use Types Packs/Day [...] 2:39 PM EDT Spoke to optomology [place] they confirmed that Dr. Warner would have to have an outside department for optomolgy do this. * Telephone Encounter - Leonardo Coleman M.A. - 09/22/2017 11:17 AM EDT Called optomology in [place] BSR put message in with Dr. Warner's [...] optometry? Should he be seen by an elementary special education teacher or do you need patient to come [...] referral needs to start: HERNANDEZ Esposito Payor: SRIDHARAR/ FFS / Plan: [facility] MDCR-ADV HMO $20/$40 / Product Type: MEDICARE [id number] documented in this encounter Plan of Treatment Not on file documented as of this encounter Visit Diagnoses Not on filedocumented in this encounter Care Teams Personnel Officer Relationship Specialty Start Date End Date Azalia Esposito MD PCP - General Internal Medicine 12/02/1502/20/21 Charbel Poe [address] [address] PCP - General Internal Medicine 02/21/21 Shaw Cervantes MD [address] [place] [address] Specialist Cardiovascular Disease 02/18/21 Ryan Jenkins MD 300 [facility] [address] [place] [address] Specialist Cardiology 02/18/21 Rosalva Stern PA-C 300 [facility] [address] [place] [address] Specialist Cardiology 02/18/21 documented as of this encounter
--- OUTSIDE RECORDS SUMMARY | 2024-08-29 12:33 | XMS_ITS | Encounter Summary ---
Author Organization [facility] Address [address] [place] [address] Care Team Providers Care Grocery Store Manager Name Role Phone Azalia Esposito MD Primary Care Provider Unavailable Shaw Cervantes MD Unavailable [phone] Ryan Jenkins MD Unavailable [phone] Rosalva Stern PA-C Unavailable Charbel Poe Primary Care Provider Unavailabl e Reason for Visit * Reason Onset Date Comments medication problems 11/16/2017 Encounter Details Date Type Department Care Team Description 11/16/2017 Telephone Adult [facility] - [address] [address] Azalia Esposito MD medication problems Social History [...] filedocumented in this encounter Care Teams Grocery Store Manager Relationship Specialty Start Date End Date Azalia Esposiot MD PCP - General Internal Medicine 12/02/1502/20/21 Charbel Poe [address] [address] PCP - General Internal Medicine 02/21/21 Shaw Cervantes MD [address] [address] Specialist Cardiovascular Disease 02/18/21 Ryan Jenkins MD 300 [facility] [address] [place] [address] Specialist Cardiology 02/18/21 Rosalva Stern PA-C [address] [address] Specialist Cardiology 02/18/21 documented as of this encounter
--- OUTSIDE RECORDS SUMMARY | 2024-08-29 12:33 | XMS_ITS | Encounter Summary ---
Author Organization [facility] Address [address] [place] [address] Care Team Providers Care Army Senior Officer Name Role Phone Shaw Cervantes MD Unavailable Ryan Jenkins MD Unavailable Rosalva Stern PA-C Unavailable Charbel Poe Primary Care Provider Unavailabl e Encounter Details Date Type Department Care Team Description 12/18/2022 Member Of Parliament Report Medical Records [address] [place] [address] Agnieszka Zapata MD [address] [place] [address] [address] [place] [address] Social History Tobacco Use Types Packs/Day Years [...] on filedocumented in this encounter Care Teams Army Senior Officer Relationship Specialty Start Date End Date Charbel Poe [address] [place] [address] PCP - General Internal Medicine 02/21/21 Shaw Cervantes MD 2 [facility] [address] [place] [address] Specialist Cardiovascular Disease 02/18/21 Ryan Jenkins MD [address] [place] [address] Specialist Cardiology 02/18/21 Rosalva Stern PA-C [address] [place] [address] Specialist Cardiology 02/18/21 documented as of this encounter
--- OUTSIDE RECORDS SUMMARY | 2024-08-29 12:33 | XMS_ITS | Encounter Summary ---
Author Organization [facility] Address [address] [place] [address] Care Team Providers Care Construction Mgr Name Role Phone Azalia Esposito MD Primary Care Provider Unavailable Shaw Cervantes MD Unavailable [phone] Ryan Jenkins MD Unavailable [phone] Rosalva Stern PA-C Unavailable Charbel Poe Primary Care Provider Unavailabl e Reason for Referral * EXTERNAL (Routine) - Authorized/Booked Specialty Diagnoses / Procedures Referred By Contmima t Referred To Contact Ophthalmology Procedures REFERRAL TO EXTERNAL OPHTHALMOLOGY Azalia Esposito MD [address] [place] [address] [facility] [address] [place] [address] Referral ID Status Reason Start Date Expiration Date V isits Requested Visits Authorized SEE NOTE Authorized/B ooked 09/22/2017 12/23/2017 1 1 Encounter Details Date Type Department Care Team Description 09/22/2017 [address] [address] Velia Eller, JASE Social History Tobacco Use [...] callers name?Zohreh from DR Warner's office in [place] Callers relationship to patient? 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 Caller offered to speak with the nurse for assistance: YES Response: Patient offered to speak with nurse for assistance and patient agreed. Message forwarded to nurse. documented in this encounter Plan of Treatment Not on file documented as of this encounter Visit Diagnoses Not on filedocumented in this encounter Care Teams Construction Mgr Relationship Specialty Start Date End Date [place]-Azalia Recinos MD PCP - General Internal Medicine 12/02/1502/20/21 Charbel Poe 300 [facility] [address] [place] [address] PCP - General Internal Medicine 02/21/21 Shaw Cervantes MD 2 Medical [facility] [address] [place] [address] Specialist Cardiovascular Disease 02/18/21 Ryan Jenkins MD [address] [place] [address] Specialist Cardiology 02/18/21 Rosalva Stern PA-C 300 [facility] [address] [place] [address] Specialist Cardiology 02/18/21 documented as of this encounter
--- OUTSIDE RECORDS SUMMARY | 2024-08-29 12:33 | XMS_ITS | Encounter Summary ---
Author Organization [facility] Address [address] [place] [address] Care Team Providers Care Supervisor Records Change Name Role Phone Timmy-Azalia Recinos MD Primary Care Provider Unavailable Shaw Cervantes MD Unavailable [phone] Ryan Jenkins MD Unavailable [phone] Rosalva Stern PA-C Unavailable Charbel Poe Primary Care Provider Unavailabl e Encounter Details Date Type Department Care Team Description 11/18/2019 [facility] Medical Records [address] [place] [address] Jose Haile MD Social History Tobacco Use [...] filedocumented in this encounter Care Teams Supervisor Records Change Relationship Specialty Start Date End Date Azalia Esposito MD PCP - General Internal Medicine 12/02/1502/20/21 Charbel Poe [address] [place] [address] PCP - General Internal Medicine 02/21/21 Shaw Cervantes MD 2 Medical [facility] [address] [place], [place] [address] Specialist Cardiovascular Disease 02/18/21 Ryan Jenkins MD [address] [place] [address] Specialist Cardiology 02/18/21 Rosalva Stern PA-C [address] [place] [address] Specialist Cardiology 02/18/21 documented as of this encounter
--- OUTSIDE RECORDS SUMMARY | 2024-08-29 12:33 | XMS_ITS | Encounter Summary ---
Author Organization [facility] Address [address] [place] [address] Care Team Providers Care Hairspring Assembler Name Role Phone Azalia Esposito MD Primary Care Provider Unavailable Shaw Cervantes MD Unavailable [phone] Ryan Jenkins MD Unavailable [phone] Rosalva Stern PA-C Unavailable Charbel Poe Primary Care Provider Unavailabl e Encounter Details Date Type Department Care Team Description 10/26/2016 Leasing Manager Report Medical Records [address] [place] [address] Caron Gomez PA-C [address] [address] Social History Tobacco Use Types [...] on filedocumented in this encounter Care Teams Hairspring Assembler Relationship Specialty Start Date End Date Azalia Esposito MD PCP - General Internal Medicine 12/02/1502/20/21 Charbel Poe [address] [place] [address] PCP - General Internal Medicine 02/21/21 Shaw Cervantes MD [address] [place] [address] Specialist Cardiovascular Disease 02/18/21 Ryan Jenkins MD [address] [place] [address] Specialist Cardiology 02/18/21 Rosalva Stern PA-C [address] [place] [address] Specialist Cardiology 02/18/21 documented as of this encounter
--- OUTSIDE RECORDS SUMMARY | 2024-08-29 12:33 | XMS_ITS | Encounter Summary ---
Author Organization [facility] Address [address] [place] [address] Care Team Providers Care Coil Inspector Name Role Phone Timmy-Azalia Recinos MD Primary Care Provider Unavailable Shaw Cervantes MD Unavailable [phone] Ryan Jenkins MD Unavailable [phone] Rosalva Stern PA-C Unavailable Charbel Poe Primary Care Provider Unavailabl e Encounter Details Date Type Department Care Team Description 12/06/2019 Muck Farmer Report Medical Records [address] [place] [address] Shaw Cervantes MD [address] [place] [address] Social History Tobacco Use Types Packs/Day Years [...] on filedocumented in this encounter Care Teams Coil Inspector Relationship Specialty Start Date End Date Azalia Esposito MD PCP - General Internal Medicine 12/02/1502/20/21 Charbel Poe [address] [place] [address] PCP - General Internal Medicine 02/21/21 Shaw Cervantes MD [address] [place] [address] Specialist Cardiovascular Disease 02/18/21 Ryan Jenkins MD [address] [place] [address] Specialist Cardiology 02/18/21 Rosalva Stern PA-C [address] [place] [address] Specialist Cardiology 02/18/21 documented as of this encounter
--- OUTSIDE RECORDS SUMMARY | 2024-08-29 12:33 | XMS_ITS | Encounter Summary ---
Author Organization [facility] Address [address] [place] [address] Care Team Providers Care Coil Winder Name Role Phone Shaw Cervantes MD Unavailable [phone] Ryan Jenkins MD Unavailable [phone] Rosalva Stern PA-C Unavailable Charbel Poe Primary Care Provider Unavailabl e Reason for Visit * Reason Onset Date Comments E-prescribe Rx Request 06/10/2021 incoming Fax [facility] Lopressor Encounter Details Date Type Department Care Team Description 06/10/2021 Refill Cardio PVC POC 154 300 [facility] [address] [place] [address] Rosalva Stern PA-C [address] [place] [id number] E-prescribe Rx Request (incoming Fax [facility] Lopressor ) Social History Tobacco Use [...] filedocumented in this encounter Care Teams Coil Winder Relationship Specialty Start Date End Date Charbel Poe [address] [place] [address] PCP - General Internal Medicine 02/21/21 Shaw Cervantes MD [address] [place] [address] Specialist Cardiovascular Disease 02/18/21 Ryan Jenkins MD [address] [place] [address] Specialist Cardiology 02/18/21 Rosalva Stern PA-C 300 [facility] [address] [place] [address] Specialist Cardiology 02/18/21 documented as of this encounter
--- OUTSIDE RECORDS SUMMARY | 2024-08-29 12:33 | XMS_ITS | Encounter Summary ---
Author Organization [facility] Address [address] [place] [address] Care Team Providers Care Cork Sorter Name Role Phone Shaw Cervantes MD Unavailable [phone] Ryan Jenkins MD Unavailable [phone] Rosalva Stern PA-C Unavailable Charbel Poe Primary Care Provider Unavailabl e Encounter Details Date Type Department Care Team Description 11/17/2021 Transfer Records Medical Records [address] [place] [address] Abstract, Provider Social History Tobacco Use Types [...] on filedocumented in this encounter Care Teams Cork Sorter Relationship Specialty Start Date End Date Charbel Poe 300 [facility] [address] [place] [address] PCP - General Internal Medicine 02/21/21 Shaw Cervantes MD Medical [facility] [address] [place] [address] Specialist Cardiovascular Disease 02/18/21 Ryan Jenkins MD 300 [facility] [address] [place] [address] Specialist Cardiology 02/18/21 Rosalva Stern PA-C [address] [place] [address] Specialist Cardiology 02/18/21 documented as of this encounter
--- OUTSIDE RECORDS SUMMARY | 2024-08-29 12:34 | XMS_ITS | Encounter Summary ---
Author Organization [facility] Address [address] [place] [address] Care Team Providers Care Spindle Plumber Name Role Phone Azalia Esposito MD Primary Care Provider Unavailable Shaw Cervantes MD Unavailable [phone] Ryan Jenkins MD Unavailable [phone] Rosalva Stern PA-C Unavailable Charbel Poe Primary Care Provider Unavailabl e Reason for Visit * Reason Onset Date Comments [facility] Call 10/03/2019 Encounter Details Date Type Department Care Team Description 10/03/2019 Telephone Adult [address] [address] Azalia Esposito MD [facility] Call Social History [...] on filedocumented in this encounter Care Teams Spindle Plumber Relationship Specialty Start Date End Date Azalia Esposito MD PCP - General Internal Medicine 12/02/1502/20/21 Charbel Poe [address] [place] [address] PCP - General Internal Medicine 02/21/21 Shaw Cervantes MD [address] [place] [address] Specialist Cardiovascular Disease 02/18/21 Ryan Jenkins MD [address] [place] [address] Specialist Cardiology 02/18/21 Rosalva Stern PA-C 300 [facility] [address] [place] [address] Specialist Cardiology 02/18/21 documented as of this encounter
--- OUTSIDE RECORDS SUMMARY | 2024-08-29 12:34 | XMS_ITS | Encounter Summary ---
Author Organization [facility] Address [address] [place] [address] Care Team Providers Care Epic Director Name Role Phone Azalia Esposito MD Primary Care Provider Unavailable Shaw Cervantes MD Unavailable [phone] Ryan Jenkins MD Unavailable [phone] Rosalva Stern PA-C Unavailable Charbel Poe Primary Care Provider Unavailabl e Reason for Visit * Reason Onset Date Comments [facility] Call 10/27/2019 Encounter Details Date Type Department Care Team Description 10/27/2019 Telephone Adult [address] [address] Azalia Esposito MD [facility] Call Social History [...] nurse. He will only listen to his immigration attorney. Does caller need an urgent call back? NO Was CONTACT Telephone # obtained above?:YES Fax #: documented in this encounter Plan of Treatment Not on file documented as of this encounter Visit Diagnoses Not on filedocumented in this encounter Care Teams Epic Director Relationship Specialty Start Date End Date [place]-Azalia Recinos MD PCP - General Internal Medicine 12/02/1502/20/21 Charbel Poe [address] [address] PCP - General Internal Medicine 02/21/21 Shaw Cervantes MD 2 Medical [facility] [address] [place] [address] Specialist Cardiovascular Disease 02/18/21 Ryan Jenkins MD 300 [facility] [address] [place] [address] Specialist Cardiology 02/18/21 Rosalva Stern PA-C [address] [address] Specialist Cardiology 02/18/21 documented as of this encounter
--- OUTSIDE RECORDS SUMMARY | 2024-08-29 12:34 | XMS_ITS | Encounter Summary ---
Author Organization [facility] Address [address] [place] [address] Care Team Providers Care Air Pollution Auditor Name Role Phone Timmy-Azalia Recinos MD Primary Care Provider Unavailable Shaw Cervantes MD Unavailable [phone] Ryan Jenkins MD Unavailable [phone] Rosalva Stern PA-C Unavailable Charbel Poe Primary Care Provider Unavailabl e Encounter Details Date Type Department Care Team Description 11/08/2019 [facility] Medical Records [address] [place] [id number] [place] [address] Social History Tobacco Use Types Packs/Day Years [...] on filedocumented in this encounter Care Teams Air Pollution Auditor Relationship Specialty Start Date End Date Azalia Esposito MD PCP - General Internal Medicine 12/02/1502/20/21 Charbel Poe [address] [place] [address] PCP - General Internal Medicine 02/21/21 Shaw Cerv[address] [facility] [address] [place], [place] [address] Specialist Cardiovascular Disease 02/18/21 Ryan Jenkins MD [address] [place] [address] Specialist Cardiology 02/18/21 Rosalva Stern PA-C [address] [place] [address] Specialist Cardiology 02/18/21 documented as of this encounter
--- OUTSIDE RECORDS SUMMARY | 2024-08-29 12:34 | XMS_ITS | Encounter Summary ---
Author Organization [facility] Address [address] [place] [address] Care Team Providers Care Export Specialist Name Role Phone [place]-Azalia Recinos MD Primary Care Provider Unavailable Shaw Cervantes MD Unavailable [phone] Ryan Jenkins MD Unavailable [phone] Rosalva Stern PA-C Unavailable Charbel Poe Primary Care Provider Unavailabl e Reason for Visit * Reason Onset Date Comments REFERRAL 08/31/2016 Gastro Encounter Details Date Type Department Care Team Description 08/31/2016 Telephone Gastroenterology - [address] [id number] Kirit Recio MD REFERRAL (Gastro) Social History [...] on filedocumented in this encounter Care Teams Export Specialist Relationship Specialty Start Date End Date [place]-Azalia Recinos MD PCP - General Internal Medicine 12/02/1502/20/21 Charbel Poe [address] [place] [address] PCP - General Internal Medicine 02/21/21 Shaw Cervantes MD [address] [place] [address] Specialist Cardiovascular Disease 02/18/21 Ryan Jenkins MD [address] [place] [address] Specialist Cardiology 02/18/21 Rosalva Stern PA-C [address] [place] [address] Specialist Cardiology 02/18/21 documented as of this encounter
--- OUTSIDE RECORDS SUMMARY | 2024-08-29 12:34 | XMS_ITS | Encounter Summary ---
Author Organization [facility] Address [address] [place] [address] Care Team Providers Care Sausage Smoker Name Role Phone Timmy-Azalia Recinos MD Primary Care Provider Unavailable Shaw Cervantes MD Unavailable [phone] Ryan Jenkins MD Unavailable [phone] Rosalva Stern PA-C Unavailable Charbel Poe Primary Care Provider Unavailabl e Encounter Details Date Type Department Care Team Description 11/10/2019 [facility] Medical Records [address] [place] [address] Yasmeen Murrell Social History Tobacco Use Types [...] on filedocumented in this encounter Care Teams Sausage Smoker Relationship Specialty Start Date End Date Azalia Esposito MD PCP - General Internal Medicine 12/02/1502/20/21 Charbel Poe [address] [place] [address] PCP - General Internal Medicine 02/21/21 Shaw Cervantes MD 2 Medical [facility] [address] [place], [place] [address] Specialist Cardiovascular Disease 02/18/21 Ryan Jenkins MD [address] [place] [address] Specialist Cardiology 02/18/21 Rosalva Stern PA-C [address] [place] [address] Specialist Cardiology 02/18/21 documented as of this encounter
--- OUTSIDE RECORDS SUMMARY | 2024-08-29 12:34 | XMS_ITS | Encounter Summary ---
Author Organization [facility] Address [address] [place] [address] Care Team Providers Care Contract Forester Name Role Phone Timmy-Azalia Recinos MD Primary Care Provider Unavailable Shaw Cervantes MD Unavailable [phone] Ryan Jenkins MD Unavailable [phone] Rosalva Stern PA-C Unavailable Charbel Poe Primary Care Provider Unavailabl e Encounter Details Date Type Department Care Team Description 11/07/2019 [facility] Medical Records [address] [place] [id number] [place] [address] Social History Tobacco Use Types Packs/Day Years [...] on filedocumented in this encounter Care Teams Contract Forester Relationship Specialty Start Date End Date Azalia Esposito MD PCP - General Internal Medicine 12/02/1502/20/21 Charbel Poe [address] [place] [address] PCP - General Internal Medicine 02/21/21 Shaw Cervantes MD Medical [facility] [address] [place], [place] [address] Specialist Cardiovascular Disease 02/18/21 Ryan Jenkins MD [address] [place] [address] Specialist Cardiology 02/18/21 Rosalva Stern PA-C [address] [place] [address] Specialist Cardiology 02/18/21 documented as of this encounter
--- OUTSIDE RECORDS SUMMARY | 2024-08-29 12:34 | XMS_ITS | Encounter Summary ---
Author Organization [facility] Address [address] [place] [address] Care Team Providers Care Instrumental Teacher Name Role Phone Timmy-Azalia Recinos MD Primary Care Provider Unavailable Shaw Cervantes MD Unavailable Ryan Jenkins MD Unavailable [phone] Rosalva Stern PA-C Unavailable Charbel Poe Primary Care Provider Unavailabl e Encounter Details Date Type Department Care Team Description 09/28/2019 Surgical Aide Report Medical Records [address] [place] [address] Shaw Cervantes MD [address] [place] [address] Social History Tobacco Use Types Packs/Day Years [...] on filedocumented in this encounter Care Teams Instrumental Teacher Relationship Specialty Start Date End Date Azalia Esposito MD PCP - General Internal Medicine 12/02/1502/20/21 Charbel Poe [address] [place] [address] PCP - General Internal Medicine 02/21/21 Shaw Cervantes MD [address] [place] [address] Specialist Cardiovascular Disease 02/18/21 Ryan Jenkins MD [address] [place] [address] Specialist Cardiology 02/18/21 Rosalva Stern PA-C [address] [place] [address] Specialist Cardiology 02/18/21 documented as of this encounter
--- OUTSIDE RECORDS SUMMARY | 2024-08-29 12:34 | XMS_ITS | Encounter Summary ---
Author Organization [facility] Address [address] [place] [address] Care Team Providers Care Professor Of Legal Studies Name Role Phone Timmy-Azalia Recinos MD Primary Care Provider Unavailable Shaw Cervantes MD Unavailable [phone] Ryan Jenkins MD Unavailable [phone] Rosalva Stern PA-C Unavailable Charbel Poe Primary Care Provider Unavailabl e Encounter Details Date Type Department Care Team Description 10/05/2019 Basket Hand Braider Report Medical Records [address] [place] [address] Shaw Cervantes MD [address] [place] [id number] Social History Tobacco Use Types Packs/Day Years [...] in this encounter Care Teams Professor Of Legal Studies Relationship Specialty Start Date End Date Azalia Esposito MD PCP - General Internal Medicine 12/02/1502/20/21 Charbel Poe [address] [place] [address] PCP - General Internal Medicine 02/21/21 Shaw Cervantes MD [address] [place] [address] Specialist Cardiovascular Disease 02/18/21 Ryan Jenkins MD [address] [place] [address] Specialist Cardiology 02/18/21 Rosalva Stern PA-C [address] [place] [address] Specialist Cardiology 02/18/21 documented as of this encounter
== END 2024-08-29 10:38 | disposition home or self-care (01) ==
LOC: HO.XRAY 10:37
PROVIDERS: PCP Internal Medicine; Referring Provider Internal Medicine; Visit Provider Internal Medicine
DX: J18.9 Pneumonia, unspecified organism (principal)
CPT/HCPCS: 71046

== ENCOUNTER → 2024-08-29 10:42 | Outpatient (BNV) | payer MEDICARE, SELFPAY | PROVIDERS: PCP Internal Medicine; Referring Provider Internal Medicine; Visit Provider Radiology Diagnostic Radiology | DX: J44.9 Chronic obstructive pulmonary disease, unspecified (principal); J98.11 Atelectasis | CPT/HCPCS: 71046 ==

== ENCOUNTER 2024-08-30 13:31 | Outpatient (AMB) | payer MEDICARE, SELFPAY ==
--- NOTE | 2024-08-30 13:37 | MHC.OFFVISCO ---
Intake Intake Visit Reasons: Anticoagulation Allergies head and shoulders shampoo Adverse Reaction (Severe, Uncoded 08/30/24 14:12) burn Medication List - Last Reconciled 08/30/24 by Jada Bradshaw RN albuterol sulfate 90 mcg/actuation 2 puffs inhalation Q6H PRN budesonide-formoterol 80-4.5 mcg/actuation 2 puffs inhalation BID 90 days ipratropium-albuterol 0.5 mg-3 mg(2.5 mg base)/3 mL 3 mL inhalation QID lisinopril 2.5 mg (1/2 x 5 mg) PO DAILY metoprolol succinate ER 100 mg (2 x 50 mg) PO DAILY multivitamin (Daily Multi-Vitamin tablet) 1 tab PO DAILY nebulizers To use every 4 hours omeprazole 40 mg PO BID 90 days Oxygen Home Use As directed spironolactone 12.5 mg (1/2 x 25 mg) PO DAILY warfarin 2.5 mg See Protocol PO TUTH warfarin 5 mg See Protocol PO SUMOWEFRSA Nursing Note INR: 2.9- in therapeutic range of 2-3 Medications and supplements reviewed- no changes No changes in health, diet, medications, or supplements, Denies any signs and symptoms of bleeding or bruising or clotting. Bleeding, bruising, clotting discussed Nutritional guidance given Dose: reduce dose sl due to omeprazole and recent GI bleed, 2.5mg x 3, 5mg x 4 F/U INR: 1 week Patient verbalizes understanding of instructions given pt amb with walker, on cont oxygen, has jonatan echeverria appoint today Anti-Coag Initial Assessment Social Hx Patient Tobacco Use Status: Current someday Tobacco user Tobacco use type: Cigarette Smoking packs per day: 0.5 alcohol intake: current Alcohol intake frequency: other Cardiovascular Hx: HTN, CHF, Arrhythmias and Other Lung Disease HX: COPD and Other Blood Disorder Hx: Anemia GI Hx: Diverticulosis Neurological Hx: Other Cancer HX: No Psych. Illness/Depression: No Coding Level of Care Code Est Patient Level 1 Diagnoses Current use of anticoagulant therapy Z79.01 Results AMB INR Fingerstick AMB INR Fingerstick 2.9 Last Edit by Jada Bradshaw RN on 08/30/24 13:39 Assessment & Plan Assessment & Plan (1) Current use of anticoagulant therapy: Code(s): Z79.01 - long term (current) use of anticoagulants
[2024-08-30 13:38] LABS: Prothrombin Time Whole Bld POC 35.1 sec (11.1-13.5); ~PT, ~INR - Anti Coag Clinic 2.9 (0.9-1.1)
--- OUTSIDE RECORDS SUMMARY | 2024-08-30 15:56 | XMS_ITS | Clinical Summary ---
Author Organization [facility] Address [address] [place] [address] Care Team Providers Care Outside Machinist Apprentice Name Role Phone Charbel Poe MD Primary Care Provider Surgical History Surgery Date Site/Laterality Comments OTHER SURGICAL HISTORY PROCEDURE: DENIES PREVIOUS SURGERY COLONOSCOPY 07/09/2009 PROCEDURE: HISTORICAL COLONOSCOPY; COMMENT: [facility]. Diverticulosis. UPPER GASTROINTESTINAL ENDOSCOPY 07/09/2009 PROCEDURE: CT UPPER GI ENDOSCOPY PERFORMED; COMMENT: [facility], GI bleed. No significant abnormalities. Medical History Medical History Date Comments Iron deficiency anemia 07/16/2009 DX:Iron d eficiency anemia Tobacco abuse 07/16/2009 DX:Tobacco abuse ; COMMENT: Has tried Wellbutrin, Chantix, hypnotherapy, nicotine patch and gum 10/22 - [employer] unable to contact after 5 attempts Diverticulosis, sigmoid 07/16/2009 DX:Diver ticulosis, sigmoid; COMMENT: Lower GI bleed 06/23. Admitted to [facility]. Colonoscopy 06/23. 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 Stack Severe obstructive disease [...] Documents on File Type Date Recorded Patient Ultrasonic Solderer Expl anation Health Care Decision (hx) 02/08/2020 AD PAZ DIRECTIVE Health Care Decision (hx) 02/08/2020 AD PAZ DIRECTIVE Health Care Decision (hx) 02/08/2020 AD PAZ DIRECTIVE Health Care Decision (hx) 02/08/2020 AD PAZ DIRECTIVE Health Care Decision (hx) 02/08/2020 AD PAZ DIRECTIVE Care Teams Outside Machinist Apprentice Relationship Specialty Start Date End Date Charbel Poe MD [address] [place] [address] [address] [place] [address] PCP - General Internal Medicine 02/21/21
== END 2024-08-30 14:21 | disposition home or self-care (01) ==
LOC: HO.ACS 13:31
PROVIDERS: PCP Internal Medicine; Visit Provider Internal Medicine Medical Oncology
DX: Z79.01 Long term (current) use of anticoagulants (principal)

== ENCOUNTER → 2024-08-30 13:31 | Outpatient (BNVA) | payer MEDICARE, SELFPAY | PROVIDERS: PCP Internal Medicine; Visit Provider Internal Medicine Medical Oncology | DX: J44.9 Chronic obstructive pulmonary disease, unspecified (principal); R91.8 Other nonspecific abnormal finding of lung field; I48.0 Paroxysmal atrial fibrillation; Z87.891 Personal history of nicotine dependence | CPT/HCPCS: 85610; 99211; 99212 ==

== ENCOUNTER 2024-08-30 13:46 | Outpatient (AMB) | payer MEDICARE, SELFPAY ==
--- NOTE | 2024-08-30 13:49 | A.OFFVIS_ITS ---
Vital Signs 08/30/24 13:50 Height 5 ft 8 in Weight 196 lb 3.382 oz BMI 29.8 BP 110/54 L Blood Pressure Location Lt brachial Position Sitting Pulse 94 Pulse Source Pulse Oximeter Pulse Oximetry (%) 93 Oxygen Delivery Method Nasal Cannula Oxygen Flow Rate 3 Intake Visit Reasons: COPD Intake Note: pt is here for follow up and states he was in for pneumonia and a bleeding ulcer, he is at his baseline with breathing but is still very fatigued. pt needs refill on formoterol fumarate and budesonide inhaler 100 #3 with 3 refills. Smoke Inspector Required: No Allergies head and shoulders shampoo Adverse Reaction (Severe, Uncoded 08/30/24 14:12) burn Medication List - Last Reconciled 08/30/24 by Rey August MD albuterol sulfate 90 mcg/actuation 2 puffs inhalation Q6H PRN budesonide-formoterol 80-4.5 mcg/actuation 2 puffs inhalation BID 90 days ipratropium-albuterol 0.5 mg-3 mg(2.5 mg base)/3 mL 3 mL inhalation QID lisinopril 2.5 mg (1/2 x 5 mg) PO DAILY metoprolol succinate ER 100 mg (2 x 50 mg) PO DAILY multivitamin (Daily Multi-Vitamin tablet) 1 tab PO DAILY nebulizers To use every 4 hours omeprazole 40 mg PO BID 90 days Oxygen Home Use As directed spironolactone 12.5 mg (1/2 x 25 mg) PO DAILY warfarin 2.5 mg See Protocol PO TUTH warfarin 5 mg See Protocol PO SUMOWEFRSA Do you need a note to return to daycare/school/sports/work: No HPI HPI COPD: Details: 74 years old gentleman has advanced chronic obstructive pulmonary disease, he is on O2 24 hours a day, he is on maximum medical treatment. Still smokes about 10 cigarettes a day and wants to quit on 12 of September. He was in [facility] about 2 weeks ago for a few days admitted because of increased shortness of breath and weakness. Diagnosed and treated for low-grade GI bleeding and also for possible pneumonitis in the right base. Since his discharge home he has remained stable, and feels more like at baseline . He has his usual mild intermittent cough which is mostly nonproductive, he is shortness of breath even when resting, and it gets aggravated if he tries to walk around. 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 Mother No problems noted. Brother Esophageal cancer Social History Household Members: None [facility] Do you presently have visiting nurse or other home services: No Alcohol intake: current Alcohol intake frequency: other Comment: no telesitter available at this time Patient Tobacco Use Status: Current someday Tobacco user Tobacco use type: Cigarette Cigarette Packs Per Day: 0.5 Cigarettes Per Day: 10 Years Smoked: (onset 18yo, 1-1.5ppd x 53yrs, 65pyh - now 1cig/day) e-Cigarette/Vaping Use: Never Used Second Hand Smoke Exposure: Yes Advance Directives Date on File: 07/01/20 service: No Current occupational status: retired Current occupation: RETIRED Current occupational exposures/hazards: No Cognitive needs: Yes (walker) Hearing needs: No Vision needs: No Review of Systems Const All systems reviewed & are unremarkable except as noted in HPI and below Eyes Reports loss of vision (HE IS BLIND IN RIGHT EYE) ENT Reports no additional complaints Card Denies chest pain, Reports irregular heart rhythm (ATRIAL FIBRILLATION) and Denies leg edema Resp Reports as per HPI GI Reports no additional complaints Reports no additional complaints Musc Reports no additional complaints Skin/Breast Reports system reviewed and no additional complaints, except as documented Neuro Reports no additional complaints and Reports loss of vision (HE IS BLIND IN RIGHT EYE) Psych Reports no additional complaints Physical Exam Vital Signs: Last Vital Signs Pulse 94 08/30/24 13:50 BP 110/54 L 08/30/24 13:50 Pulse Ox 93 08/30/24 13:50 Oxygen Delivery Method Nasal Cannula 08/30/24 13:50 Oxygen Flow Rate 3 08/30/24 13:50 BMI result Body Mass Index 29.8 Const General: comfortable, no acute distress, alert and awake Orientation/consciousness: patient oriented x3 HEENT Head: Yes normal to inspection General nose exam: No nasal polyps present and No nasal discharge present Face and sinus: Yes sinuses nontender Mouth: oropharynx normal Throat: Yes posterior oropharynx normal Eyes General: appearance normal, both eyes and all related structures Visual Chapman: visual chapman abnormal by confrontation (Blind in right eye) Neck Neck: Yes normal visual inspection, Yes no lymphadenopathy, Yes trachea midline and Yes no JVD Thyroid: Thyroid normal Chest Chest palpation & inspection: normal inspection of the chest, normal palpation of entire chest wall and no tenderness Resp Other: Percussion note is hyper-resonant, breath sounds are very distant with prolonged expiratory phase. No wheezes or rhonchi are heard, no crepitations. Cardio Palpation: normal PMI Rate: regular rate Rhythm: regular rhythm Heart sounds: no gallops and no murmurs GI Palpation (GI): Soft to palpation, nontender, No hepatosplenomegaly present and no masses Auscultation: normal bowel sounds Back/Spine/Pelvis Thoracic/Lumbar Spine: thoracic and lumbar spine normal to inspection Skin General skin exam: no rashes or lesions noted Neuro General: patient oriented x3 and no focal motor deficits Cranial nerves: Yes CN's II-XII intact bilaterally Extrem General: Yes normal to inspection, Yes no clubbing, cyanosis or edema and Yes no calf tenderness Psych Appearance: grossly normal and well kempt Speech and movement: Normal speech and movement present Results AMB INR Fingerstick AMB INR Fingerstick 2.9 Last Edit by Jada Bradshaw RN on 08/30/24 13:39 Results Reviewed Results Reviewed: 08/14/24 CHEST XRAY IMPRESSION: Patchy opacities in the right middle, lower lobe and left lower lobe. Question developing infiltrates acute versus chronic. Electronically signed by: Emanuel Villegas MD 08/14/2024 02:56 PM EST RP 08/29/24 MPRESSION: COPD. Right basilar subsegmental atelectasis. Assessment & Plan Assessment & Plan (1) COPD (chronic obstructive pulmonary disease): Comment: Advanced chronic obstructive pulmonary disease. Recent acute exacerbation due to pneumonia, which has resolved and he seems to be at baseline at present. Code(s): J44.9 - Chronic obstructive pulmonary disease, unspecified Category: Medical Qualifiers: COPD type: unspecified COPD Qualified Code(s): J44.9 - Chronic obstructive pulmonary disease, unspecified Plan: Continue to use generic Symbicort 80-4.52 puffs b.i.d.. Ipratropium albuterol solution in the nebuliz er Q 6 hours while awake. Albuterol HFA 2 puffs Q 4-6 hours p.r.n. for outdoors (2) Personal history of nicotine dependence: Comment: (former smoker 30+PYH, had quit for a while but back to smoking and currently he is smoking half pack a day Code(s): Z87.891 - Personal history of nicotine dependence Category: Medical Plan: Had a good conversation . He is. Smoking about 10 cigarettes a day Plans to quit as of September 12, and I gave him lot of encouragement to stay smoke free. (3) Multiple pulmonary nodules: Comment: RECENT LDCT. SHOWS MULTIPLE PULMONARY NODULES UN CHANGED FROM BEFORE. IN ADDITION SHOWING INCREASED BRONCHIAL WALL THICKENING AND PERIBRONCHIAL OPACITIES. Code(s): R91.8 - Other nonspecific abnormal finding of lung field Category: Medical Plan: Will continue to monitor with annual lung scans. Coding Level of Care Code Est Pt Level 4 (58176) Diagnoses Chronic obstructive pulmonary disease, unspecified COPD type J44.9 COPD type: unspecified COPD Personal history of nicotine dependence Z87.891 Multiple pulmonary nodules R91.8
[2024-08-30 13:50] VITALS: BP 110/54; PULSE 94; O2SAT 93; BMI 29.8
== END 2024-08-30 14:06 | disposition home or self-care (01) ==
LOC: HO.HPS 13:46
PROVIDERS: PCP Internal Medicine; Visit Provider Internal Medicine
DX: J44.9 Chronic obstructive pulmonary disease, unspecified (principal); Z87.891 Personal history of nicotine dependence; R91.8 Other nonspecific abnormal finding of lung field
CPT/HCPCS: 99214

== ENCOUNTER 2024-09-12 13:10 | Outpatient (AMB) | payer MEDICARE, SELFPAY ==
--- NOTE | 2024-09-12 13:17 | MHC.OFFVISCO ---
Intake Intake Visit Reasons: Anticoagulation Allergies head and shoulders shampoo Adverse Reaction (Severe, Uncoded 08/30/24 14:12) burn Nursing Note INR: 2.2 in therapeutic range of 2-3 Medications and supplements reviewed No changes in health, diet, medications, or supplements, Denies any signs and symptoms of bleeding or bruising or clotting. Bleeding, bruising, clotting discussed Nutritional guidance given Dose: 5mg X 4 days and 2.5mg X 3 days (M/W/F) F/U INR: 2 weeks Patient verbalizes understanding of instructions given Anti-Coag Initial Assessment Social Hx Patient Tobacco Use Status: Current someday Tobacco user Tobacco use type: Cigarette Smoking packs per day: 0.5 alcohol intake: current Alcohol intake frequency: other Cardiovascular Hx: HTN, CHF, Arrhythmias and Other Lung Disease HX: COPD and Other Blood Disorder Hx: Anemia GI Hx: Diverticulosis Neurological Hx: Other Cancer HX: No Psych. Illness/Depression: No Coding Level of Care Code Est Patient Level 1 Diagnoses Current use of anticoagulant therapy Z79.01 Assessment & Plan Assessment & Plan (1) Current use of anticoagulant therapy: Code(s): Z79.01 - [facility] (current) use of anticoagulants
[2024-09-12 13:24] LABS: Prothrombin Time Whole Bld POC 26.9 sec (11.1-13.5); ~PT, ~INR - Anti Coag Clinic 2.2 (0.9-1.1)
--- OUTSIDE RECORDS SUMMARY | 2024-09-12 15:28 | XMS_ITS | Clinical Summary ---
Author Organization [facility] Address [address] [place] [address] Care Team Providers Care Anaesthesiologist Name Role Phone Charbel Poe MD Primary Care Provider [phone] Surgical History Surgery Date Site/Laterality Comments OTHER SURGICAL HISTORY PROCEDURE: DENIES PREVIOUS SURGERY COLONOSCOPY 07/09/2009 PROCEDURE: HISTORICAL COLONOSCOPY; COMMENT: [facility]. Diverticulosis. UPPER GASTROINTESTINAL ENDOSCOPY 07/09/2009 PROCEDURE: [place] UPPER GI ENDOSCOPY PERFORMED; COMMENT: [facility], GI bleed. No significant abnormalities. Medical History Medical History Date Comments Iron deficiency anemia 07/16/2009 DX:Iron d eficiency anemia Tobacco abuse 07/16/2009 DX:Tobacco abuse ; COMMENT: Has tried Wellbutrin, Chantix, hypnotherapy, nicotine patch and gum 10/22 - [employer] unable to contact after 5 attempts Diverticulosis, sigmoid 07/16/2009 DX:Diver ticulosis, sigmoid; COMMENT: Lower GI bleed 06/23. Admitted to [facility]. Colonoscopy 06/23. 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 Stack Severe obstructive [...] Health Maintenance Due Date Last Done Comments Zoster Vaccines (1 of 2) 2002 RSV [...] patient's age to complete this topic Hepatitis A Vaccines Aged Out No long er eligible [...] Documents on File Type Date Recorded Patient Emergency Room Orderly Expl anation Health Care Decision (hx) 02/08/2020 AD PAZ DIRECTIVE Health Care Decision (hx) 02/08/2020 AD PAZ DIRECTIVE Health Care Decision (hx) 02/08/2020 AD PAZ DIRECTIVE Health Care Decision (hx) 02/08/2020 AD PAZ DIRECTIVE Health Care Decision (hx) 02/08/2020 AD PAZ DIRECTIVE Care Teams Anaesthesiologist Relationship Specialty Start Date End Date Charbel Poe MD [address] [place] [address] [address] [place] [address] PCP - General Internal Medicine 02/21/21
== END 2024-09-12 13:30 | disposition home or self-care (01) ==
LOC: HO.ACS 13:10
PROVIDERS: PCP Internal Medicine; Visit Provider Internal Medicine
DX: Z79.01 Long term (current) use of anticoagulants (principal)

== ENCOUNTER → 2024-09-12 13:10 | Outpatient (BNVA) | payer MEDICARE, SELFPAY | PROVIDERS: PCP Internal Medicine; Visit Provider Internal Medicine | DX: I48.0 Paroxysmal atrial fibrillation (principal); Z79.01 Long term (current) use of anticoagulants; Z51.81 Encounter for therapeutic drug level monitoring | CPT/HCPCS: 85610; 99211 ==

== ENCOUNTER 2024-09-26 13:06 | Outpatient (AMB) | payer MEDICARE, SELFPAY ==
[2024-09-26 13:11] LABS: Prothrombin Time Whole Bld POC 20.5 sec (11.1-13.5); ~PT, ~INR - Anti Coag Clinic 1.7 (0.9-1.1)
--- NOTE | 2024-09-26 13:18 | MHC.OFFVISCO ---
Intake Intake Visit Reasons: Anticoagulation Allergies head and shoulders shampoo Adverse Reaction (Severe, Uncoded 09/26/24 13:07) burn Medication List - Last Reconciled 09/26/24 by Jerilyn Streeter RN albuterol sulfate 90 mcg/actuation 2 puffs inhalation Q6H PRN budesonide-formoterol 80-4.5 mcg/actuation 2 puffs inhalation BID 90 days ipratropium-albuterol 0.5 mg-3 mg(2.5 mg base)/3 mL 3 mL inhalation QID lisinopril 2.5 mg (1/2 x 5 mg) PO DAILY metoprolol succinate ER 100 mg (2 x 50 mg) PO DAILY multivitamin (Daily Multi-Vitamin tablet) 1 tab PO DAILY nebulizers To use every 4 hours omeprazole 40 mg PO BID 90 days Oxygen Home Use As directed spironolactone 12.5 mg (1/2 x 25 mg) PO DAILY warfarin 2.5 mg See Protocol PO TUTH warfarin 5 mg See Protocol PO SUMOWEFRSA Nursing Note INR: 1.7?out of therapeutic range of 2-3. Pt denies missed dose. States he eats what meals on wheels sends him. Medications and supplements reviewed Patient status: to ACS with portable O2. No changes in health. Medications or supplements: no changes Diet: no changes (meals on wheels) Denies any signs and symptoms of bleeding or clotting or unusual bruising Bleeding, bruising, clotting discussed Nutritional guidance given: to avoid greens today and to have a serving of foods that raise the INR. Food list discussed and pt states he will have grapes and strawberries. Dose: Pt took 5mg today already. Will increase tomorrow's dose to 5mg from 2.5mg then to continue with usual dose of 5mg X 4 days and 2.5mg X 3 days (M/W/F) F/U INR Date: 10/23/24?? Patient verbalizing understanding of instructions given. Anti-Coag Initial Assessment Social Hx Patient Tobacco Use Status: Current someday Tobacco user Tobacco use type: Cigarette Smoking packs per day: 0.5 alcohol intake: current Alcohol intake frequency: other Cardiovascular Hx: HTN, CHF, Arrhythmias and Other Lung Disease HX: COPD and Other Blood Disorder Hx: Anemia GI Hx: Diverticulosis Neurological Hx: Other Cancer HX: No Psych. Illness/Depression: No Coding Level of Care Code Est Patient Level 1 Diagnoses Current use of anticoagulant therapy Z79.01 Results AMB INR Fingerstick AMB INR Fingerstick 1.7 Last Edit by Jerilyn Streeter RN on 09/26/24 13:17 interface delay Assessment & Plan Assessment & Plan (1) Current use of anticoagulant therapy: Code(s): Z79.01 - longterm (current) use of anticoagulants
--- OUTSIDE RECORDS SUMMARY | 2024-09-26 15:59 | XMS_ITS | Encounter Summary ---
Author Organization [facility] Address [address] [place] [address] Care Team Providers Care Kinesiologist Name Role Phone Azalia Esposito MD Primary Care Provider Unavailable Shaw Cervantes MD Unavailable [phone] Ryan Jenkins MD Unavailable [phone] Rosalva Stern PA-C Unavailable Charbel Poe Primary Care Provider Unavailabl e Reason for Visit * Reason Onset Date Comments Faxed Order 11/29/2019 [facility] Encounter Details Date Type Department Care Team Description 11/29/2019 Telephone Adult [address] [id number] Azalia Esposito MD Faxed Order (FAM GALDAMEZ [...] providers bin for signature, fax back to [phone] documented in this encounter Plan of Treatment Not on file documented as of this encounter Visit Diagnoses Not on filedocumented in this encounter Care Teams Kinesiologist Relationship Specialty Start Date End Date [place]-Azalia Recinos MD PCP - General Internal Medicine 12/02/1502/20/21 Charbel Poe [address] [place] [address] PCP - General Internal Medicine 02/21/21 Shaw Cervantes MD [address] [place] [address] Specialist Cardiovascular Disease 02/18/21 Ryan Jenkins MD [address] [place] [address] Specialist Cardiology 02/18/21 Rosalva Stern PA-C [address] [place] [address] Specialist Cardiology 02/18/21 documented as of this encounter
--- OUTSIDE RECORDS SUMMARY | 2024-09-26 15:59 | XMS_ITS | Encounter Summary ---
Author Organization [facility] Address [address] [place] [address] Care Team Providers Care Animal Laboratory Technician Name Role Phone Timmy-Azalia Recinos MD Primary Care Provider Unavailable Shaw Cervantes MD Unavailable [phone] Ryan Jenkins MD Unavailable Rosalva Stern PA-C Unavailable Charbel Poe Primary Care Provider Unavailabl e Encounter Details Date Type Department Care Team Description 03/11/2020 Pullman Conductor Report Medical Records [address] [place] [address] Rosalva Stern PA-C [address] [place] [address] [id number] Social History Tobacco Use Types Packs/Day Years [...] on filedocumented in this encounter Care Teams Animal Laboratory Technician Relationship Specialty Start Date End Date Azalia Esposito MD PCP - General Internal Medicine 12/02/1502/20/21 Charbel Poe [address] [address] PCP - General Internal Medicine 02/21/21 Shaw Cervantes MD [address] [place] [address] Specialist Cardiovascular Disease 02/18/21 Ryan Jenkins MD [address] [place] [address] Specialist Cardiology 02/18/21 Rosalva Stern PA-C [address] [place] [address] Specialist Cardiology 02/18/21 documented as of this encounter
--- OUTSIDE RECORDS SUMMARY | 2024-09-26 15:59 | XMS_ITS | Encounter Summary ---
Author Organization [facility] Address [address] [place] [address] Care Team Providers Care Radiology Asst Name Role Phone Thompson-Azalia Recinos MD Primary Care Provider Unavailable Shaw Cervantes MD Unavailable [phone] Ryan Jenkins MD Unavailable [phone] Rosalva Stern PA-C Unavailable Charbel Poe Primary Care Provider Unavailthuan e Reason for Visit * Reason Onset Date Comments Medical Records 08/02/2020 Encounter Details Date Type Department Care Team Description 08/02/2020 Telephone Medical Records [address] [place] [address] Abstract, Provider Medical Records Social History Tobacco [...] 08/02/2020 4:39 PM EST Faxed records to [facility] Att: Kirit Castro For New Appt. [phone]/ [phone] documented in this encounter Plan of Treatment Not on file documented as of this encounter Visit Diagnoses Not on filedocumented in this encounter Care Teams Radiology Asst Relationship Specialty Start Date End Date Thompson-Azalia Recinos MD PCP - General Internal Medicine 12/02/1502/20/21 Charbel Poe [address] [place] [address] PCP - General Internal Medicine 02/21/21 Shaw Cervantes MD [address] [place] [address] Specialist Cardiovascular Disease 02/18/21 Ryan Jenkins MD [address] [place] [address] Specialist Cardiology 02/18/21 Rosalva Stern PA-C [address] [place] [address] Specialist Cardiology 02/18/21 documented as of this encounter
--- OUTSIDE RECORDS SUMMARY | 2024-09-26 15:59 | XMS_ITS | Encounter Summary ---
Author Organization [facility] Address [address] [place] [address] Care Team Providers Care Vat Operator Name Role Phone Timmy-Azalia Recinos MD Primary Care Provider Unavailable Shaw Cervantes MD Unavailable [phone] Ryan Jenkins MD Unavailable [phone] Rosalva Stern PA-C Unavailable Charbel Poe Primary Care Provider Unavailabl e Encounter Details Date Type Department Care Team Description 11/22/2017 Multiple Tube Winding Machine Operator Report Medical Records [address] [place] [id number] [place] [address] Social History Tobacco Use Types Packs/Day Years [...] on filedocumented in this encounter Care Teams Vat Operator Relationship Specialty Start Date End Date Azalia Esposito MD PCP - General Internal Medicine 12/02/1502/20/21 Charbel Poe [address] [address] PCP - General Internal Medicine 02/21/21 Shaw Cervantes MD [address] [place] [address] Specialist Cardiovascular Disease 02/18/21 Ryan Jenkins MD [address] [place] [address] Specialist Cardiology 02/18/21 Rosalva Stern PA-C [address] [place] [address] Specialist Cardiology 02/18/21 documented as of this encounter
--- OUTSIDE RECORDS SUMMARY | 2024-09-26 15:59 | XMS_ITS | Encounter Summary ---
Author Organization [facility] Address [address] [place] [address] Care Team Providers Care Clothing Patternmaker Name Role Phone Surprise-Azalia Recinos MD Primary Care Provider Unavailable Shaw Cervantes MD Unavailable [phone] Ryan Jenkins MD Unavailable [phone] Rosalva Stern PA-C Unavailable Charbel Poe Primary Care Provider Unavailthuan e Encounter Details Date Type Department Care Team Description 03/17/2018 Orders Only Pulmonology - [place] [address] [facility] [address] [place] [address] Miky Lockett MD [address] [facility] [address] [place] [address] Stage 3 severe COPD by [...] Procedure Name Priority Date/Time Associated Diagnosis Comments [place] NONINVASIVE EAR/PULSE OXIMETRY OVERNIGHT MONITOR Routine 02/14/2018 [...] (HCC) documented in this encounter Care Teams Clothing Patternmaker Relationship Specialty Start Date End Date Surprise-Azalia Recinos MD PCP - General Internal Medicine 12/02/1502/20/21 Charbel Poe [address] [address] PCP - General Internal Medicine 02/21/21 Shaw Cervantes MD [address] [facility] [address] [place] [address] Specialist Cardiovascular Disease 02/18/21 Ryan Jenkins MD [address] [facility] [address] [place] [address] Specialist Cardiology 02/18/21 Rosalva Stern PA-C [address] [facility] [address] [place] [address] Specialist Cardiology 02/18/21 documented as of this encounter
--- OUTSIDE RECORDS SUMMARY | 2024-09-26 15:59 | XMS_ITS | Encounter Summary ---
Author Organization [facility] Address [address] [place] [address] Care Team Providers Care Oven Worker Name Role Phone Sudarshan Deluca Primary Care Provider Unav ailable Shin Núñez MD Primary Care Provider [phone] Azalia Esposito MD Primary Care Provider Unavailable Azalia Esposito MD Primary Care Provider Unavailable Shaw Cervantes MD Unavailable [phone] Ryan Jenkins MD Unavailable [phone] Rosalva Stern PA-C Unavailable Charbel Poe Primary Care Provider Unavailabl e Encounter Details Date Type Department Care Team Description 07/08/2009 Hospital Medical Records [address] [place] [address] Ruperto Louise MD Social History Tobacco Use [...] on filedocumented in this encounter Care Teams Oven Worker Relationship Specialty Start Date End Date Sudarshan Deluca PCP - General 05/06/10 12/30/14 Shin Núñez MD [address] [place] [address] PCP - General 07/08/09 05/05/10 Timmy-Azalia Recinos MD [address] [place] [address] PCP - General Internal Medicine 12/02/15 02/20/21 Azalia Esposito MD [address] [place] [address] PCP - General 12/31/14 12/01/15 Charbel Poe [address] [place] [address] PCP - General Internal Medicine 02/21/21 Shaw Cervantes MD [address] [place] [address] Specialist Cardiovascular Disease 02/18/21 Ryan Jenkins MD [address] [place] [address] Specialist Cardiology 02/18/21 Rosalva Stern PA-C [address] [place] [address] Specialist Cardiology 02/18/21 documented as of this encounter
--- OUTSIDE RECORDS SUMMARY | 2024-09-26 15:59 | XMS_ITS | Encounter Summary ---
Author Organization [facility] Address [address] [place] [address] Care Team Providers Care Mica Paster Name Role Phone Timmy-Azalia Recinos MD Primary Care Provider Unavailable Shaw Cervantes MD Unavailable [phone] Ryan Jenkins MD Unavailable [phone] Rosalva Stern PA-C Unavailable Charbel Poe Primary Care Provider Unavailabl e Encounter Details Date Type Department Care Team Description 02/07/2020 [facility] Medical Records [address] [place] [address] Ryan Jenkins MD [address] [address] Social History Tobacco Use Types Packs/Day Years [...] on filedocumented in this encounter Care Teams Mica Paster Relationship Specialty Start Date End Date Azalia Esposito MD PCP - General Internal Medicine 12/02/1502/20/21 Charbel Poe [address] [address] PCP - General Internal Medicine 02/21/21 Shaw Cervantes MD [address] [place] [address] Specialist Cardiovascular Disease 02/18/21 Ryan Jenkins MD [address] [place] [address] Specialist Cardiology 02/18/21 Rosalva Stern PA-C [address] [place] [address] Specialist Cardiology 02/18/21 documented as of this encounter
--- OUTSIDE RECORDS SUMMARY | 2024-09-26 15:59 | XMS_ITS | Encounter Summary ---
Author Organization [facility] Address [address] [place] [address] Care Team Providers Care Aquatic Laborer Name Role Phone Shaw Cervantes MD Unavailable Ryan Jenkins MD Unavailable Rosalva Stern PA-C Unavailable Charbel Poe Primary Care Provider Unavailabl e Encounter Details Date Type Department Care Team Description 12/21/2022 Hydraulic Mechanic Report [facility] Medical [facility] Thoracic Surgery [place] 299 [facility] 410 [place] [address] Agnieszka Zapata MD 299 [facility] 410 [place], [place] [id number] Social History Tobacco Use Types Packs/Day Years [...] on filedocumented in this encounter Care Teams Aquatic Laborer Relationship Specialty Start Date End Date Charbel Poe [address] [place] [address] PCP - General Internal Medicine 02/21/21 Shaw Cervantes MD [address] [place] [address] Specialist Cardiovascular Disease 02/18/21 Ryan Jenkins MD [address] [place] [address] Specialist Cardiology 02/18/21 Rosalva Stern PA-C [address] [place] [address] Specialist Cardiology 02/18/21 documented as of this encounter
--- OUTSIDE RECORDS SUMMARY | 2024-09-26 15:59 | XMS_ITS | Encounter Summary ---
Author Organization [facility] Address [address] [place] [address] Care Team Providers Care Battery Charger Conveyor Line Name Role Phone Sudarshan Deluca Primary Care Provider Unav ailable Shin Núñez MD Primary Care Provider [phone] Azalia Esposito MD Primary Care Provider Unavailable Azalia Esposito MD Primary Care Provider Unavailable Shaw Cervantes MD Unavailable [phone] Ryan Jenkins MD Unavailable [phone] Rosalva Stern PA-C Unavailable Charbel Poe Primary Care Provider Unavailabl e Encounter Details Date Type Department Care Team Description 07/09/2009 Hospital Medical Records [address] [place] [address] Jason Recinos MD Social History Tobacco Use [...] on filedocumented in this encounter Care Teams Battery Charger Conveyor Line Relationship Specialty Start Date End Date Sudarshan Deluca PCP - General 05/06/10 12/30/14 Shin Núñez MD [address] [place] [address] PCP - General 07/08/09 05/05/10 Timmy-Azalia Recinos MD [address] [place] [address] PCP - General Internal Medicine 12/02/15 02/20/21 Azalia Esposito MD [address] [place] [address] PCP - General 12/31/14 12/01/15 Charebl Poe [address] [place] [address] PCP - General Internal Medicine 02/21/21 Shaw Cervantes MD [address] [place] [address] Specialist Cardiovascular Disease 02/18/21 Ryan Jenkins MD [address] [place] [address] Specialist Cardiology 02/18/21 Rosalva Stern PA-C [address] [place] [address] Specialist Cardiology 02/18/21 documented as of this encounter
--- OUTSIDE RECORDS SUMMARY | 2024-09-26 15:59 | XMS_ITS | Encounter Summary ---
Author Organization [facility] Address [address] [place] [address] Care Team Providers Care Electronic Science Teacher Name Role Phone Timmy-Azalia Recinos MD Primary Care Provider Unavailable Shaw Cervantes MD Unavailable [phone] Ryan Jenkins MD Unavailable [phone] Rosalva Stern PA-C Unavailable Charbel Poe Primary Care Provider Unavailabl e Encounter Details Date Type Department Care Team Description 02/05/2016 Is Technician Report Medical Records [address] [place] [address] Abstract, Provider Social History Tobacco Use Types [...] filedocumented in this encounter Care Teams Electronic Science Teacher Relationship Specialty Start Date End Date Azalia Esposito MD PCP - General Internal Medicine 12/02/1502/20/21 Charbel Poe [address] [address] PCP - General Internal Medicine 02/21/21 Shaw Cervantes MD [address] [place] [address] Specialist Cardiovascular Disease 02/18/21 Ryan Jenkins MD [address] [place] [address] Specialist Cardiology 02/18/21 Rosalva Stern PA-C [address] [place] [address] Specialist Cardiology 02/18/21 documented as of this encounter
--- OUTSIDE RECORDS SUMMARY | 2024-09-26 15:59 | XMS_ITS | Encounter Summary ---
Author Organization [facility] Address [address] [place] [address] Care Team Providers Care Precision Lens Grinder Name Role Phone Azalia Esposito MD Primary Care Provider Unavailable Azalia Esposito MD Primary Care Provider Unavailable Shaw Cervantes MD Unavailable [phone] Ryan Jenkins MD Unavailable [phone] Rosalva Stern PA-C Unavailable Charbel Poe Primary Care Provider Unavailabl e Encounter Details Date Type Department Care Team Description 12/31/2014 Orders Only Adult Medicine - [address] [address] Hari Cristobal PA-C [address] [place] [address] COPD (chronic obstructive pulmonary disease) (Primary Dx) [...] PM EDT COPD (chronic obstructive pulmonary disease) [place] NONINVASIVE EAR/PULSE OXIMETRY SINGLE DETER Routine 12/31/2014 6:35 PM EDT COPD (chronic obstructive pulmonary disease) [place] PRESSURIZED/NONPRESSURI ZED INHALATION TREATMENT Routine 12/31/2014 6:35 PM EDT COPD (chronic obstructive pulmonary disease) documented in this encounter Visit Diagnoses Diagnosis COPD (chronic obstructive pulmonary disease) (HCC)- Primary Chronic airway obstruction, not elsewhere classified documented in this encounter Care Teams Precision Lens Grinder Relationship Specialty Start Date End Date [place]-Azalia Recinos MD PCP - General Internal Medicine 12/02/1502/20/21 [place]-Azalia Recinos MD PCP - General 12/31/1411/30 Charbel Poe [address] [place] [address] PCP - General Internal Medicine 02/21/21 Shaw Cervantes MD [address] [place] [address] Specialist Cardiovascular Disease 02/18/21 Ryan Jenkins MD [address] [place] [address] Specialist Cardiology 02/18/21 Rosalva Stern PA-C [address] [place] [address] Specialist Cardiology 02/18/21 documented as of this encounter
--- OUTSIDE RECORDS SUMMARY | 2024-09-26 15:59 | XMS_ITS | Encounter Summary ---
Author Organization [facility] Address [address] [place] [address] Care Team Providers Care Hotel Services Sales Representative Name Role Phone Azalia Esposito MD Primary Care Provider Unavailable Sahw Cervantes MD Unavailable [phone] Ryan Jenikns MD Unavailable [phone] Rosalva Stern PA-C Unavailable Charbel Poe Primary Care Provider Unavailabl e Encounter Details Date Type Department Care Team Description 08/26/2018 Systems Software Engineer Report Medical Records [address] [place] [address] Social History Tobacco Use Types Packs/Day Years [...] on filedocumented in this encounter Care Teams Hotel Services Sales Representative Relationship Specialty Start Date End Date Azalia Esposito MD PCP - General Internal Medicine 12/02/1502/20/21 Charbel Poe [address] [place] [address] PCP - General Internal Medicine 02/21/21 Shaw Cervantes MD [address] [place] [address] Specialist Cardiovascular Disease 02/18/21 Ryan Jenkins MD [address] [place] [address] Specialist Cardiology 02/18/21 Rosalva Stern PA-C [address] [place] [address] Specialist Cardiology 02/18/21 documented as of this encounter
--- OUTSIDE RECORDS SUMMARY | 2024-09-26 15:59 | XMS_ITS | Encounter Summary ---
Author Organization [facility] Address [address] [place] [address] Care Team Providers Care Conventional Mortgage Underwriter Name Role Phone Azalia Esposito MD Primary Care Provider Unavailable Shaw Cervantes MD Unavailable [phone] Ryan Jenkins MD Unavailable [phone] Rosalva Stern PA-C Unavailable Charbel Poe Primary Care Provider Unavailabl e Reason for Visit * Reason Onset Date Comments Form 09/11/2019 [facility] 08/31/2019- Encounter Details Date Type Department Care Team Description 09/11/2019 Telephone Adult Medicine - [address] [address] Azalia Esposito MD Form ([facility] 08/31/2019-10/29/2019) Social History Tobacco Use Types Packs/Day [...] DATE RECEIVED:09/11/2019 AGENCY:Roxanna Lepe CERT DATES:08/30-10/29/2019 FAX NUMBER:[phone] LOCATION OF [facility]:Call center documented in this encounter Plan of [...] in remission Nondependent alcohol abuse, in remission termite renewal inspector (current) use of inhaled steroids Dependence on supplemental oxygen termite renewal inspector (current) use of anticoagulants Long-term (current) use of anticoagulants documented in this encounter Care Teams Conventional Mortgage Underwriter Relationship Specialty Start Date End Date [place]-Azalia Recinos MD PCP - General Internal Medicine 12/02/1502/20/21 Charbel Poe 300 [address] [place] [address] PCP - General Internal Medicine 02/21/21 Shaw Cervantes MD [address] [place] [address] Specialist Cardiovascular Disease 02/18/21 Ryan Jenkins MD 300 [facility] [address] [place] [address] Specialist Cardiology 02/18/21 Rosalva Stern PA-C 300 [facility] [address] [place] [address] Specialist Cardiology 02/18/21 documented as of this encounter
--- OUTSIDE RECORDS SUMMARY | 2024-09-26 15:59 | XMS_ITS | Encounter Summary ---
Author Organization [facility] Address [address] [place] [address] Care Team Providers Care Environmental Services Specialist Name Role Phone Timmy-Azalia Recinos MD Primary Care Provider Unavailable Shaw Cervantes MD Unavailable [phone] Ryan Jenkins MD Unavailable [phone] Rosalva Stern PA-C Unavailable Charbel Poe Primary Care Provider Unavailabl e Encounter Details Date Type Department Care Team Description 09/27/2019 Home Health Certification Medical Records [address] [place] [address] Caring[employer]anna Social History Tobacco Use Types Packs/Day [...] on filedocumented in this encounter Care Teams Environmental Services Specialist Relationship Specialty Start Date End Date Azalia Esposito MD PCP - General Internal Medicine 12/02/1502/20/21 Charbel Poe [address] [address] PCP - General Internal Medicine 02/21/21 Shaw Cervantes MD [address] [place] [address] Specialist Cardiovascular Disease 02/18/21 Ryan Jenkins MD [address] [place] [address] Specialist Cardiology 02/18/21 Rosalva Stern PA-C [address] [place] [address] Specialist Cardiology 02/18/21 documented as of this encounter
--- OUTSIDE RECORDS SUMMARY | 2024-09-26 15:59 | XMS_ITS | Encounter Summary ---
Author Organization [facility] Address [address] [place] [address] Care Team Providers Care Retail Representative Name Role Phone Sudarshan Deluca Primary Care Provider Unav ailable Shin Núñez MD Primary Care Provider [phone] Azalia Esposito MD Primary Care Provider Unavailable Azalia Esposito MD Primary Care Provider Unavailable Shaw Cervantes MD Unavailable [phone] Ryan Jenkins MD Unavailable [phone] Rosalva Stern PA-C Unavailable Charbel Poe Primary Care Provider Unavailabl e Encounter Details Date Type Department Care Team Description 07/11/2009 Hospital Medical Records [address] [place] [address] Onesimo Rockwell Social History Tobacco Use Types [...] on filedocumented in this encounter Care Teams Retail Representative Relationship Specialty Start Date End Date Sudarshan Deluca PCP - General 05/06/10 12/30/14 Shin Núñez MD [address] [place] [address] PCP - General 07/08/09 05/05/10 Timmy-Azalia Recinos MD [address] [place] [address] PCP - General Internal Medicine 12/02/15 02/20/21 Azalia Esposito MD [address] [place] [address] PCP - General 12/31/14 12/01/15 Charbel Poe [address] [place] [address] PCP - General Internal Medicine 02/21/21 Shaw Cervantes MD [address] [place] [address] Specialist Cardiovascular Disease 02/18/21 Ryan Jenkins MD [address] [place] [address] Specialist Cardiology 02/18/21 Rosalva Stern PA-C [address] [facility] [address] [place] [address] Specialist Cardiology 02/18/21 documented as of this encounter
--- OUTSIDE RECORDS SUMMARY | 2024-09-26 15:59 | XMS_ITS | Encounter Summary ---
Author Organization [facility] Address [address] [place] [address] Care Team Providers Care Telephone Lines Repairer Name Role Phone Timmy-Azalia Recinos MD Primary Care Provider Unavailable Shaw Cervantes MD Unavailable [phone] Ryan Jenkins MD Unavailable [phone] Rosalva Stern PA-C Unavailable Charbel Poe Primary Care Provider Unavailabl e Encounter Details Date Type Department Care Team Description 08/09/2019 [facility] Medical Records [address] [place] [address] Johan Barragan MD Social History Tobacco Use [...] filedocumented in this encounter Care Teams Telephone Lines Repairer Relationship Specialty Start Date End Date Azalia Esposito MD PCP - General Internal Medicine 12/02/1502/20/21 Charbel Poe [address] [place] [address] PCP - General Internal Medicine 02/21/21 Shaw Cervantes MD Medical [facility] [address] [place], [place] [address] Specialist Cardiovascular Disease 02/18/21 Ryan Jenkins MD [address] [place] [address] Specialist Cardiology 02/18/21 Rosalva Stern PA-C [address] [place] [address] Specialist Cardiology 02/18/21 documented as of this encounter
--- OUTSIDE RECORDS SUMMARY | 2024-09-26 15:59 | XMS_ITS | Encounter Summary ---
Author Organization [facility] Address [address] [place] [address] Care Team Providers Care Hooking Machine Operator Name Role Phone Shaw Cervantes MD Unavailable [phone] Ryan Jenkins MD Unavailable [phone] Rosalva Stern PA-C Unavailable Charbel Poe Primary Care Provider Unavailabl e Encounter Details Date Type Department Care Team Description 11/17/2021 Transfer Records Medical Records [address] [place] [address] Abstract, Provider Social History Tobacco Use Types [...] on filedocumented in this encounter Care Teams Hooking Machine Operator Relationship Specialty Start Date End Date Charbel Poe 300 [facility] [address] [place] [address] PCP - General Internal Medicine 02/21/21 Shaw Cervantes MD Medical [facility] [address] [place] [address] Specialist Cardiovascular Disease 02/18/21 Ryan Jenkins MD 300 [facility] [address] [place] [address] Specialist Cardiology 02/18/21 Rosalva Stern PA-C [address] [place] [address] Specialist Cardiology 02/18/21 documented as of this encounter
--- OUTSIDE RECORDS SUMMARY | 2024-09-26 15:59 | XMS_ITS | Encounter Summary ---
Author Organization [facility] Address [address] [place] [address] Care Team Providers Care Maintenance Tech Name Role Phone Timmy-Azalia Recinos MD Primary Care Provider Unavailable Shaw Cervantes MD Unavailable [phone] Ryan Jenkins MD Unavailable [phone] Roslava Stern PA-C Unavailable Charbel Poe Primary Care Provider Unavailabl e Encounter Details Date Type Department Care Team Description 08/30/2019 [facility] Medical Records [address] [place] [address] Nella Pritchett, BEAM CARRIER HAULER PUSHER Social History Tobacco Use Types Packs/Day Years [...] filedocumented in this encounter Care Teams Maintenance Tech Relationship Specialty Start Date End Date Azalia Esposito MD PCP - General Internal Medicine 12/02/1502/20/21 Charbel Poe [address] [place] [address] PCP - General Internal Medicine 02/21/21 Shaw Cervantes MD Medical [facility] [address] [place], [place] [address] Specialist Cardiovascular Disease 02/18/21 Ryan Jenkins MD [address] [place] [address] Specialist Cardiology 02/18/21 Rosalva Stern PA-C [address] [place] [address] Specialist Cardiology 02/18/21 documented as of this encounter
--- OUTSIDE RECORDS SUMMARY | 2024-09-26 15:59 | XMS_ITS | Encounter Summary ---
Author Organization [facility] Address [address] [place] [address] Care Team Providers Care Radar Operator Name Role Phone Azalia Esposito MD Primary Care Provider Unavailable Shaw Cervantes MD Unavailable [phone] Ryan Jenkins MD Unavailable [phone] Rosalva Stern PA-C Unavailable Charbel Poe Primary Care Provider Unavailabl e Encounter Details Date Type Department Care Team Description 10/26/2016 Rat Exterminator Report Medical Records [address] [place] [address] Caron Gomez PA-C [address] [address] Social History Tobacco Use Types [...] on filedocumented in this encounter Care Teams Radar Operator Relationship Specialty Start Date End Date Azalia Esposito MD PCP - General Internal Medicine 12/02/1502/20/21 Charbel Poe [address] [place] [address] PCP - General Internal Medicine 02/21/21 Shaw Cervantes MD [address] [place] [address] Specialist Cardiovascular Disease 02/18/21 Ryan Jenkins MD [address] [place] [address] Specialist Cardiology 02/18/21 Rosalva Stern PA-C [address] [place] [address] Specialist Cardiology 02/18/21 documented as of this encounter
--- OUTSIDE RECORDS SUMMARY | 2024-09-26 15:59 | XMS_ITS | Encounter Summary ---
Author Organization [facility] Address [address] [place] [address] Care Team Providers Care Control Director Name Role Phone Timmy-Azalia Recinos MD Primary Care Provider Unavailable Shaw Cervantes MD Unavailable [phone] Ryan Jenkins MD Unavailable [phone] Rosalva Stern PA-C Unavailable Charbel Poe Primary Care Provider Unavailabl e Encounter Details Date Type Department Care Team Description 12/13/2015 Associate Professor Of Music Report Medical Records [address] [place] [address] Abstract, Provider Social History Tobacco Use Types [...] on filedocumented in this encounter Care Teams Control Director Relationship Specialty Start Date End Date Azalia Esposito MD PCP - General Internal Medicine 12/02/1502/20/21 Charbel Poe [address] [address] PCP - General Internal Medicine 02/21/21 Shaw Cervantes MD [address] [place] [address] Specialist Cardiovascular Disease 02/18/21 Ryan Jenkins MD [address] [place] [address] Specialist Cardiology 02/18/21 Rosalva Stern PA-C [address] [place] [address] Specialist Cardiology 02/18/21 documented as of this encounter
--- OUTSIDE RECORDS SUMMARY | 2024-09-26 15:59 | XMS_ITS | Clinical Summary ---
Author Organization [facility] Address [address] [place] [address] Care Team Providers Care Supervisor Production Managing Name Role Phone Charbel Poe MD Primary Care Provider [phone] Surgical History Surgery Date Site/Laterality Comments OTHER SURGICAL HISTORY PROCEDURE: DENIES PREVIOUS SURGERY COLONOSCOPY 07/09/2009 PROCEDURE: HISTORICAL COLONOSCOPY; COMMENT: [facility]. Diverticulosis. UPPER GASTROINTESTINAL ENDOSCOPY 07/09/2009 PROCEDURE: ID UPPER GI ENDOSCOPY PERFORMED; COMMENT: [facility], GI bleed. No significant abnormalities. Medical History Medical History Date Comments Iron deficiency anemia 07/16/2009 DX:Iron d eficiency anemia Tobacco abuse 07/16/2009 DX:Tobacco abuse ; COMMENT: Has tried Wellbutrin, Chantix, hypnotherapy, nicotine patch and gum 10/22 - [employer] unable to contact after 5 attempts Diverticulosis, sigmoid 07/16/2009 DX:Diver ticulosis, sigmoid; COMMENT: Lower GI bleed 06/23. Admitted to [facility]. Colonoscopy 06/23. 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 Stack Severe obstructive [...] Vaccines (1 of 2) 2002 RSV Immunization Adult Patients (1 - Risk 60-74 years 1-dose series) [...] COVID-19 Vaccine ( season) 2024 Influenza Vaccine (Season Ended) 2025 04/25/2019, 03/14/2018, 04/29/2016, Additional history exists Pneumococcal Vaccine: [...] age to complete this topic Meningococcal B Vaccine Aged Out No l onger eligible based on patient's age to complete this topic RSV Immunization Patients Under 20 months Aged Out No longer eligible based on patient's age to complete this topic Varicella Vaccines Aged Out No longer eligible based on patient's age to complete this topic Advance Directives Documents on File Type Date Recorded Patient Cosmetic Maker Expl anation Health Care Decision (hx) 02/08/2020 AD PAZ DIRECTIVE Health Care Decision (hx) 02/08/2020 AD PAZ DIRECTIVE Health Care Decision (hx) 02/08/2020 AD PAZ DIRECTIVE Health Care Decision (hx) 02/08/2020 AD PAZ DIRECTIVE Health Care Decision (hx) 02/08/2020 AD PAZ DIRECTIVE Care Teams Supervisor Production Managing Relationship Specialty Start Date End Date Charbel Poe MD [address] [place] [address] [address] [place] [address] PCP - General Internal Medicine 02/21/21
--- OUTSIDE RECORDS SUMMARY | 2024-09-26 15:59 | XMS_ITS | Encounter Summary ---
Author Organization [facility] Address [address] [place] [address] Care Team Providers Care Crown Blocker Name Role Phone Timmy-Azalia Recinos MD Primary Care Provider Unavailable Shaw Cervantes MD Unavailable [phone] Ryan Jenkins MD Unavailable [phone] Rosalva Stern PA-C Unavailable Charbel Poe Primary Care Provider Unavailabl e Encounter Details Date Type Department Care Team Description 01/01/2020 Tensioning Machine Operator Report Medical Records [address] [place] [address] Shaw Cervantes MD [address] [place] [address] Social History Tobacco Use Types Packs/Day Years [...] on filedocumented in this encounter Care Teams Crown Blocker Relationship Specialty Start Date End Date Azalia Esposito MD PCP - General Internal Medicine 12/02/1502/20/21 Charbel Poe [address] [place] [address] PCP - General Internal Medicine 02/21/21 Shaw Cervantes MD [address] [place] [address] Specialist Cardiovascular Disease 02/18/21 Ryan Jenkins MD [address] [place] [address] Specialist Cardiology 02/18/21 Rosalva Stern PA-C [address] [place] [address] Specialist Cardiology 02/18/21 documented as of this encounter
--- OUTSIDE RECORDS SUMMARY | 2024-09-26 15:59 | XMS_ITS | Encounter Summary ---
Author Organization [facility] Address [address] [place] [address] Care Team Providers Care Postdoctoral Research Fellow Name Role Phone Azalia Esposito MD Primary Care Provider Unavailable Shaw Cervantes MD Unavailable [phone] Ryan Jenkins MD Unavailable [phone] Rosalva Stern PA-C Unavailable Charbel Poe Primary Care Provider Unavailabl e Reason for Referral * EXTERNAL (Routine) - Authorized/Booked Specialty Diagnoses / Procedures Referred By Contmima t Referred To Contact Ophthalmology Procedures REFERRAL TO EXTERNAL OPHTHALMOLOGY Azalia Esposito MD [address] [place] [address] [facility] [address] [place] [address] Referral ID Status Reason Start Date Expiration Date V isits Requested Visits Authorized SEE NOTE Authorized/B ooked 09/22/2017 12/23/2017 1 1 Encounter Details Date Type Department Care Team Description 09/22/2017 [address]phone [facility] [address] [address] Velia Eller, JASE Social History Tobacco Use [...] callers name?Zohreh from DR Warner's office in [place] Callers relationship to patient? 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 Caller offered to speak with the nurse for assistance: YES Response: Patient offered to speak with nurse for assistance and patient agreed. Message forwarded to nurse. documented in this encounter Plan of Treatment Not on file documented as of this encounter Visit Diagnoses Not on filedocumented in this encounter Care Teams Postdoctoral Research Fellow Relationship Specialty Start Date End Date Brainerd-Azalia Recinos MD PCP - General Internal Medicine 12/02/1502/20/21 Charbel Poe 300 [facility] [address] [place] [address] PCP - General Internal Medicine 02/21/21 Shaw Cervantes MD [address] [facility] [address] [place] [address] Specialist Cardiovascular Disease 02/18/21 Ryan Jenkins MD [address] [place] [address] Specialist Cardiology 02/18/21 Rosalva Stern PA-C 300 [facility] [address] [place] [address] Specialist Cardiology 02/18/21 documented as of this encounter
--- OUTSIDE RECORDS SUMMARY | 2024-09-26 15:59 | XMS_ITS | Encounter Summary ---
Author Organization [facility] Address [address] [place] [address] Care Team Providers Care Transit Planning Manager Name Role Phone Montgomery-Azalia Recinos MD Primary Care Provider Unavailable Shaw Cervantes MD Unavailable [phone] Ryan Jenkins MD Unavailable [phone] Rosalva Stern PA-C Unavailable Charbel Poe Primary Care Provider Unavailabl e Reason for Visit * Reason Onset Date Comments EKG 09/25/2019 EKG Final Cardi Read Encounter Details Date Type Department Care Team Description 09/25/2019 Telephone Cardio PVC Med [address] [facility] [address] [place] [phone] Ynes Cevallos MD EKG (EKG Final Cardi [...] EKG FINAL CARDI READ Faxed EKG to [phone] documented in this encounter Plan of Treatment Not on file documented as of this encounter Visit Diagnoses Not on filedocumented in this encounter Care Teams Transit Planning Manager Relationship Specialty Start Date End Date Montgomery-Azalia Recinos MD PCP - General Internal Medicine 12/02/1502/20/21 Charbel Poe 300 [facility] [address] [place] [address] PCP - General Internal Medicine 02/21/21 Shaw Cervantes MD [address] [place] [address] Specialist Cardiovascular Disease 02/18/21 Ryan Jenkins MD [address] [place] [address] Specialist Cardiology 02/18/21 Rosalva Stern PA-C 300 [facility] [address] [place] [address] Specialist Cardiology 02/18/21 documented as of this encounter
--- OUTSIDE RECORDS SUMMARY | 2024-09-26 15:59 | XMS_ITS | Encounter Summary ---
Author Organization [facility] Address [address] [place] [address] Care Team Providers Care Disintegrator Name Role Phone Azalia Esposito MD Primary Care Provider Unavailable Azalia Esposito MD Primary Care Provider Unavailable Shaw Cervantes MD Unavailable [phone] Ryan Jenkins MD Unavailable [phone] Rosalva Stern PA-C Unavailable Charbel Poe Primary Care Provider Unavailabl e Encounter Details Date Type Department Care Team Description 01/02/2015 [facility] Medical Records [address] [place] [address] Sona Franco MD Social History Tobacco Use Types Packs/Day [...] on filedocumented in this encounter Care Teams Disintegrator Relationship Specialty Start Date End Date Azalia Esposito MD PCP - General Internal Medicine 12/02/1502/20/21 Azalia Esposito MD PCP - General 12/31/1411/30 Charbel Poe [address] [address] PCP - General Internal Medicine 02/21/21 Shaw Cervantes MD [address] [place] [address] Specialist Cardiovascular Disease 02/18/21 Ryan Jenkins MD [address] [place] [address] Specialist Cardiology 02/18/21 Rosalva Stern PA-C [address] [place] [address] Specialist Cardiology 02/18/21 documented as of this encounter
--- OUTSIDE RECORDS SUMMARY | 2024-09-26 15:59 | XMS_ITS | Encounter Summary ---
Author Organization [facility] Address [address] [place] [address] Care Team Providers Care Electromyographic Technician Name Role Phone Shaw Cervantes MD Unavailable Ryan Jenkins MD Unavailable Rosalva Stern PA-C Unavailable Charbel Poe Primary Care Provider Unavailabl e Encounter Details Date Type Department Care Team Description 01/30/2022 Stripping Cutter And Winder Report Medical Records [address] [place] [address] Agnieszka Zapata MD [address] [place] [address] [address] [place] [address] Social History Tobacco Use Types Packs/Day Years [...] on filedocumented in this encounter Care Teams Electromyographic Technician Relationship Specialty Start Date End Date Charbel Poe [address] [place] [address] PCP - General Internal Medicine 02/21/21 Shaw Cervantes MD 2 [facility] [address] [place] [address] Specialist Cardiovascular Disease 02/18/21 Ryan Jenkins MD [address] [place] [address] Specialist Cardiology 02/18/21 Rosalva Stern PA-C [address] [place] [address] Specialist Cardiology 02/18/21 documented as of this encounter
--- OUTSIDE RECORDS SUMMARY | 2024-09-26 15:59 | XMS_ITS | Clinical Summary ---
Author Organization 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 Admitted to [facility]. Colonoscopy 06/23. Resolved Problems Problem Noted [...] 12/26/2021 12/26/2020, 12/26/2020, 12/20/2019, Additional history exists BMI CHECK/ADVISE 06/14/2024 02/12/2020, 05/2019, 04/25/2019, Additional history exists INFLUENZA (Season Ended) 2025 019, 03/14/2018, 04/29/2016, Additional history exists HEPATITIS C SCREENING Completed 09/07/2012 ABDOMINAL AORTIC ANEURYSM (AAA) SCREENING Addressed 09/13/2017 (Exception) Overridden with t he intention of not completing the topic PNEUMOCOCCAL VACCINE Completed 09/13/2018, 09/13/2017, 05/14/2011 Care Teams Auto Service Representative Relationship Specialty Start Date End Date Charbel Poe [address] [place] [address] PCP - General Internal Medicine 02/21/21 Shaw Cervantes MD [address] [place] [address] Specialist Cardiovascular Disease 02/18/21 Ryan Jenkins MD [address] [place] [address] Specialist Cardiology 02/18/21 Rosalva Stern PA-C [address] [place] [address] Specialist Cardiology 02/18/21
--- OUTSIDE RECORDS SUMMARY | 2024-09-26 15:59 | XMS_ITS | Encounter Summary ---
Author Organization [facility] Address [address] [place] [address] Care Team Providers Care Flat Knitter Name Role Phone Azalia Esposito MD Primary Care Provider Unavailable Azalia Esposito MD Primary Care Provider Unavailable Shaw Cervantes MD Unavailable [phone] Ryan Jenkins MD Unavailable [phone] Rosalva Stern PA-C Unavailable Charbel Poe Primary Care Provider Unavailabl e Encounter Details Date Type Department Care Team Description 10/09/2015 Microbiology Lab Analyst Report Medical Records [address] [place] [address] Dept., [facility] Occupational & Pt Social History Tobacco [...] on filedocumented in this encounter Care Teams Flat Knitter Relationship Specialty Start Date End Date Azalia Esposito MD PCP - General Internal Medicine 12/02/1502/20/21 Azalia Esposito MD PCP - General 12/31/1411/30 Charbel Poe [address] [place] [address] PCP - General Internal Medicine 02/21/21 Shaw Cervantes MD [address] [place] [address] Specialist Cardiovascular Disease 02/18/21 Ryan Jenkins MD [address] [place] [address] Specialist Cardiology 02/18/21 Rosalva Stern PA-C [address] [place] [address] Specialist Cardiology 02/18/21 documented as of this encounter
--- OUTSIDE RECORDS SUMMARY | 2024-09-26 15:59 | XMS_ITS | Encounter Summary ---
Author Organization [facility] Address [address] [place] [address] Care Team Providers Care Household Manager Name Role Phone Azalia Esposito MD Primary Care Provider Unavailable Azalia Esposito MD Primary Care Provider Unavailable Shaw Cervantes MD Unavailable [phone] Ryan Jenkins MD Unavailable [phone] Rosalva Stern PA-C Unavailable Charbel Poe Primary Care Provider Unavailabl e Encounter Details Date Type Department Care Team Description 11/13/2015 Assignment Desk Editor Report Medical Records [address] [place] [address] Abstract, Provider Social History Tobacco Use Types [...] on filedocumented in this encounter Care Teams Household Manager Relationship Specialty Start Date End Date Azalia Esposito MD PCP - General Internal Medicine 12/02/1502/20/21 Azalia Esposito MD PCP - General 12/31/1411/30 Charbel Poe [address] [place] [address] PCP - General Internal Medicine 02/21/21 Shaw Cervantes MD [address] [place] [address] Specialist Cardiovascular Disease 02/18/21 Ryan Jenkins MD [address] [place] [address] Specialist Cardiology 02/18/21 Rosalva Stern PA-C [address] [place] [address] Specialist Cardiology 02/18/21 documented as of this encounter
--- OUTSIDE RECORDS SUMMARY | 2024-09-26 15:59 | XMS_ITS | Encounter Summary ---
Author Organization [facility] Address [address] [place] [address] Care Team Providers Care Supervisor Air Conditioning Installer Name Role Phone Timmy-Azalia Recinos MD Primary Care Provider Unavailable Shaw Cervantes MD Unavailable [phone] Ryan Jenkins MD Unavailable [phone] Rosalva Stern PA-C Unavailable Charbel Poe Primary Care Provider Unavailabl e Encounter Details Date Type Department Care Team Description 11/18/2019 [facility] Medical Records [address] [place] [address] Jose Haile MD Social History Tobacco Use [...] filedocumented in this encounter Care Teams Supervisor Air Conditioning Installer Relationship Specialty Start Date End Date Azalia Esposito MD PCP - General Internal Medicine 12/02/1502/20/21 Charbel Poe [address] [place] [address] PCP - General Internal Medicine 02/21/21 Shaw Cervantes MD [address] [facility] [address] [place], [place] [address] Specialist Cardiovascular Disease 02/18/21 Ryan Jenkins MD [address] [place] [address] Specialist Cardiology 02/18/21 Rosalva Stern PA-C [address] [place] [address] Specialist Cardiology 02/18/21 documented as of this encounter
--- OUTSIDE RECORDS SUMMARY | 2024-09-26 15:59 | XMS_ITS | Encounter Summary ---
Author Organization [facility] Address [address] [place] [address] Care Team Providers Care Beef Ribber Name Role Phone Timmy-Azalia Recinos MD Primary Care Provider Unavailable Shaw Cervantes MD Unavailable [phone] Ryan Jenkins MD Unavailable [phone] Rosalva Stern PA-C Unavailable Charbel Poe Primary Care Provider Unavailabl e Encounter Details Date Type Department Care Team Description 08/24/2019 [facility] Medical Records [address] [place] [address] Onesimo Batista Social History Tobacco Use Types [...] on filedocumented in this encounter Care Teams Beef Ribber Relationship Specialty Start Date End Date Azalia Esposito MD PCP - General Internal Medicine 12/02/1502/20/21 Charbel Poe [address] [place] [address] PCP - General Internal Medicine 02/21/21 Shaw Cervantes MD Medical [facility] [address] [place], [place] [address] Specialist Cardiovascular Disease 02/18/21 Ryan Jenkins MD [address] [place] [address] Specialist Cardiology 02/18/21 Rosalva Stern PA-C [address] [place] [address] Specialist Cardiology 02/18/21 documented as of this encounter
--- OUTSIDE RECORDS SUMMARY | 2024-09-26 15:59 | XMS_ITS | Encounter Summary ---
Author Organization [facility] Address [address] [place] [address] Care Team Providers Care Dietitian Consultant Name Role Phone Azalia Esposito MD Primary Care Provider Unavailable Shaw Cervantes MD Unavailable [phone] Ryan Jenkins MD Unavailable [phone] Rosalva tSern PA-C Unavailable Charbel Poe Primary Care Provider Unavailabl e Reason for Visit * Reason Onset Date Comments medication problems 11/16/2017 Encounter Details Date Type Department Care Team Description 11/16/2017 Telephone Adult [facility] - [address] [address] zAalia Esposito MD medication problems Social History Tobacco [...] on filedocumented in this encounter Care Teams Dietitian Consultant Relationship Specialty Start Date End Date Azalia Esposito MD PCP - General Internal Medicine 12/02/1502/20/21 Charbel Poe [address] [address] PCP - General Internal Medicine 02/21/21 Shaw Cervantes MD [address] [address] Specialist Cardiovascular Disease 02/18/21 Ryan Jenkins MD 300 [facility] [address] [place] [address] Specialist Cardiology 02/18/21 Rosalva Stern PA-C [address] [address] Specialist Cardiology 02/18/21 documented as of this encounter
--- OUTSIDE RECORDS SUMMARY | 2024-09-26 15:59 | XMS_ITS | Encounter Summary ---
Author Organization [facility] Address [address] [place] [address] Care Team Providers Care Multisensor Intelligence Officer Name Role Phone Sudarshan Deluca Primary Care Provider Unav ailable Shin Núñez MD Primary Care Provider [phone] Azalia Esposito MD Primary Care Provider Unavailable Azalia Esposito MD Primary Care Provider Unavailable Shaw Cervantes MD Unavailable [phone] Ryan Jenkins MD Unavailable [phone] Rosalva Stern PA-C Unavailable Charbel Poe Primary Care Provider Unavailabl e Encounter Details Date Type Department Care Team Description 07/08/2009 Hospital Medical Records [address] [place] [address] Santana Louis MD Social History Tobacco Use [...] on filedocumented in this encounter Care Teams Multisensor Intelligence Officer Relationship Specialty Start Date End Date Sudarshan Deluca PCP - General 05/06/10 12/30/14 Shin Núñez MD [address] [place] [address] PCP - General 07/08/09 05/05/10 Timmy-Azlaia Recinos MD [address] [place] [address] PCP - General Internal Medicine 12/02/15 02/20/21 Azalia Esposito MD [address] [place] [address] PCP - General 12/31/14 12/01/15 Charbel Poe [address] [place] [address] PCP - General Internal Medicine 02/21/21 Shaw Cervantes MD [address] [place] [address] Specialist Cardiovascular Disease 02/18/21 Ryan Jenkins MD [address] [place] [address] Specialist Cardiology 02/18/21 Rosalva Stern PA-C [address] [place] [address] Specialist Cardiology 02/18/21 documented as of this encounter
--- OUTSIDE RECORDS SUMMARY | 2024-09-26 15:59 | XMS_ITS | Encounter Summary ---
Author Organization [facility] Address [address] [place] [address] Care Team Providers Care Performance Manager Name Role Phone Timmy-Azalia Recinos MD Primary Care Provider Unavailable Shaw Cervantes MD Unavailable Ryan Jenkins MD Unavailable [phone] Rosalva Stern PA-C Unavailable Charbel Poe Primary Care Provider Unavailabl e Encounter Details Date Type Department Care Team Description 08/25/2019 [facility] Medical Records [address] [place] [address] [address]y [address] [place] [address] Social History Tobacco Use Types Packs/Day Years [...] on filedocumented in this encounter Care Teams Performance Manager Relationship Specialty Start Date End Date Azalia Esposito MD PCP - General Internal Medicine 12/02/1502/20/21 Charbel Poe [address] [place] [address] PCP - General Internal Medicine 02/21/21 Shaw Cervantes MD [address] [place] [address] Specialist Cardiovascular Disease 02/18/21 Ryan Jenkins MD [address] [place] [address] Specialist Cardiology 02/18/21 Rosalva Stern PA-C [address] [place] [address] Specialist Cardiology 02/18/21 documented as of this encounter
--- OUTSIDE RECORDS SUMMARY | 2024-09-26 15:59 | XMS_ITS | Encounter Summary ---
Author Organization [facility] Address [address] [place] [address] Care Team Providers Care Concrete Puddler Name Role Phone Timmy-Azalia Recinos MD Primary Care Provider Unavailable Shaw Cervantes MD Unavailable [phone] Ryan Jenkins MD Unavailable [phone] Rosalva Stern PA-C Unavailable Charbel Poe Primary Care Provider Unavailabl e Encounter Details Date Type Department Care Team Description 12/27/2020 [facility] Report Medical Records [address] [place] [address] [facility] [address] [place] [address] Social History Tobacco Use Types Packs/Day Years [...] on filedocumented in this encounter Care Teams Concrete Puddler Relationship Specialty Start Date End Date Azalia Esposito MD PCP - General Internal Medicine 12/02/1502/20/21 Charbel Poe [address] [place] [address] PCP - General Internal Medicine 02/21/21 Shaw Cevrantes MD [address] [place] [address] Specialist Cardiovascular Disease 02/18/21 Ryan Jenkins MD [address] [place] [address] Specialist Cardiology 02/18/21 Rosalva Stern PA-C [address] [place] [address] Specialist Cardiology 02/18/21 documented as of this encounter
--- OUTSIDE RECORDS SUMMARY | 2024-09-26 16:00 | XMS_ITS | Encounter Summary ---
Author Organization [facility] Address [address] [place] [address] Care Team Providers Care Tank Pumper Name Role Phone Azalia Esposito MD Primary Care Provider Unavailable Shaw Cervantes MD Unavailable [phone] Ryan Jenkins MD Unavailable [phone] Rosalva Stern PA-C Unavailable Charbel Poe Primary Care Provider Unavailabl e Reason for Visit * Reason Onset Date Comments Faxed Order 12/05/2019 Roxanna Lepe Encounter Details Date Type Department Care Team Description 12/05/2019 Telephone Adult Medicine - [address] [address] Azalia Esposito MD Faxed Order (Roxanna Lepe) [...] per list is Dr Timothy Pringle in [facility]. fyi * Telephone Encounter - Telma Jenkins [...] to face attestation. DOS 08-24-19 faxed to [phone]. If any questions she can be reached at [phone] * Telephone Encounter - Mona Vasquez - 12/05/2019 2:36 PM EDT Faxed order received by Roxanna placed in providers bin for signature, fax back to [phone] documented in this encounter Plan of Treatment Not on file documented as of this encounter Visit Diagnoses Not on filedocumented in this encounter Care Teams Tank Pumper Relationship Specialty Start Date End Date Halliday-Azalia Recinos MD PCP - General Internal Medicine 12/02/1502/20/21 Charbel Poe [address] [place] [address] PCP - General Internal Medicine 02/21/21 Shaw Cervantes MD [address] [place], [place] [address] Specialist Cardiovascular Disease 02/18/21 Ryan Jenkins MD [address] [place] [address] Specialist Cardiology 02/18/21 Rosalva Stern PA-C [address] [place] [address] Specialist Cardiology 02/18/21 documented as of this encounter
--- OUTSIDE RECORDS SUMMARY | 2024-09-26 16:00 | XMS_ITS | Encounter Summary ---
Author Organization [facility] Address [address] [place] [address] Care Team Providers Care Script Coordinator Name Role Phone Azalia Esposito MD Primary Care Provider Unavailable Shaw Cervantes MD Unavailable [phone] Ryan Jenkins MD Unavailable [phone] Rosalva Stern PA-C Unavailable Charbel Poe Primary Care Provider Unavailabl e Reason for Visit * Reason Onset Date Comments [facility] Call 10/03/2019 Encounter Details Date Type Department Care Team Description 10/03/2019 Telephone Adult [address] [address] Azalia Esposito MD [facility] Call Social History [...] on filedocumented in this encounter Care Teams Script Coordinator Relationship Specialty Start Date End Date Azalia Esposito MD PCP - General Internal Medicine 12/02/1502/20/21 Charbel Poe [address] [place] [address] PCP - General Internal Medicine 02/21/21 Shaw Cervantes MD [address] [place] [address] Specialist Cardiovascular Disease 02/18/21 Ryan Jenkins MD [address] [place] [address] Specialist Cardiology 02/18/21 Rosalva Stern PA-C [address] [facility] [address] [place] [address] Specialist Cardiology 02/18/21 documented as of this encounter
--- OUTSIDE RECORDS SUMMARY | 2024-09-26 16:00 | XMS_ITS | Encounter Summary ---
Author Organization [facility] Address [address] [place] [address] Care Team Providers Care Supervisor Aircraft Cleaning Name Role Phone Azalia Esposito MD Primary Care Provider Unavailable Shaw Cervantes MD Unavailable Ryan Jenkins MD Unavailable [phone] Rosalva Stern PA-C Unavailable Charbel Poe Primary Care Provider Unavailabl e Reason for Visit * Reason Onset Date Comments Faxed Order 10/10/2019 Encounter Details Date Type Department Care Team Description 10/10/2019 Telephone Adult [address] [id number] Azalia Esposito MD Faxed Order Social History [...] review, sign, date, and fax back to [phone]. Order #[id number] * Telephone Encounter - Joanna Moore - 10/13/2019 11:39 AM EDT Faxed order received from Roxanna Lepe. Please review, sign, date, and fax back to [phone]. Order #[id number] * Telephone Encounter - Natalia Almeida - 10/10/2019 9:53 AM EDT Orders from Roxanna Lepe to be signed and faxed back to [phone] . documented in this encounter Plan of Treatment Not on file documented as of this encounter Visit Diagnoses Not on filedocumented in this encounter Care Teams Supervisor Aircraft Cleaning Relationship Specialty Start Date End Date Post-Azalia Recinos MD PCP - General Internal Medicine 12/02/1502/20/21 Charbel Poe [address] [facility] [address] [place] [address] PCP - General Internal Medicine 02/21/21 Shaw Cervantes MD [address] [facility] [address] [place] [address] Specialist Cardiovascular Disease 02/18/21 Ryan Jenkins MD [address] [facility] [address] [place] [address] Specialist Cardiology 02/18/21 Rosalva Stern PA-C [address] [facility] [address] [place] [address] Specialist Cardiology 02/18/21 documented as of this encounter
--- OUTSIDE RECORDS SUMMARY | 2024-09-26 16:00 | XMS_ITS | Encounter Summary ---
Author Organization [facility] Address [address] [place] [address] Care Team Providers Care Commercial Escrow Officer Name Role Phone Timmy-Azalia Recinos MD Primary Care Provider Unavailable Shaw Cervantes MD Unavailable [phone] Ryan Jenkins MD Unavailable [phone] Rosalva Stern PA-C Unavailable Charbel Poe Primary Care Provider Unavailabl e Encounter Details Date Type Department Care Team Description 11/07/2019 [facility] Medical Records [address] [place] [id number] [place] [address] Social History Tobacco Use Types Packs/Day Years [...] on filedocumented in this encounter Care Teams Commercial Escrow Officer Relationship Specialty Start Date End Date Azalia Esposito MD PCP - General Internal Medicine 12/02/1502/20/21 Charbel Poe [address] [place] [address] PCP - General Internal Medicine 02/21/21 Shaw Cervantes MD Medical [facility] [address] [place], [place] [address] Specialist Cardiovascular Disease 02/18/21 Ryan Jenkins MD [address] [place] [address] Specialist Cardiology 02/18/21 Rosalva Stern PA-C [address] [place] [address] Specialist Cardiology 02/18/21 documented as of this encounter
--- OUTSIDE RECORDS SUMMARY | 2024-09-26 16:00 | XMS_ITS | Encounter Summary ---
Author Organization [facility] Address [address] [place] [address] Care Team Providers Care Dianeticist Name Role Phone Azalia Esposito MD Primary Care Provider Unavailable Shaw Cervantes MD Unavailable [phone] Ryan Jenkins MD Unavailable [phone] Rosalva Stern PA-C Unavailable Charbel Poe Primary Care Provider Unavailabl e Reason for Visit * Reason Onset Date Comments Faxed Order 10/26/2019 Encounter Details Date Type Department Care Team Description 10/26/2019 Telephone Adult Medicine - [address] [address] Azalia Esposito MD Faxed Order Social History [...] order to Roxanna Lepe at fax # [phone] Order #[id number] documented in this encounter Plan of Treatment Not on file documented as of this encounter Visit Diagnoses Not on filedocumented in this encounter Care Teams Dianeticist Relationship Specialty Start Date End Date [place]-Azalia Recinos MD PCP - General Internal Medicine 12/02/1502/20/21 Charbel Poe [address] [place] [address] PCP - General Internal Medicine 02/21/21 Shaw Cervantes MD [address] [place] [address] Specialist Cardiovascular Disease 02/18/21 Ryan Jenkins MD [address] [place] [address] Specialist Cardiology 02/18/21 Rosalva Stern PA-C [address] [place] [address] Specialist Cardiology 02/18/21 documented as of this encounter
--- OUTSIDE RECORDS SUMMARY | 2024-09-26 16:00 | XMS_ITS | Encounter Summary ---
Author Organization [facility] Address [address] [place] [address] Care Team Providers Care Draw In Hand Name Role Phone Azalia Esposito MD Primary Care Provider Unavailable Shaw Cervantes MD Unavailable [phone] Ryan Jenkins MD Unavailable [phone] Rosalva Stern PA-C Unavailable Charbel Poe Primary Care Provider Unavailabl e Encounter Details Date Type Department Care Team Description 02/09/2017 [facility] Report Medical Records [address] [place] [address] Social History Tobacco Use Types Packs/Day Years [...] on filedocumented in this encounter Care Teams Draw In Hand Relationship Specialty Start Date End Date Azalia Esposito MD PCP - General Internal Medicine 12/02/1502/20/21 Charbel Poe [address] [place] [address] PCP - General Internal Medicine 02/21/21 Shaw Cervantes MD [address] [place] [address] Specialist Cardiovascular Disease 02/18/21 Ryan Jenkins MD [address] [place] [address] Specialist Cardiology 02/18/21 Rosalva Stern PA-C [address] [place] [address] Specialist Cardiology 02/18/21 documented as of this encounter
--- OUTSIDE RECORDS SUMMARY | 2024-09-26 16:00 | XMS_ITS | Encounter Summary ---
Author Organization [facility] Address [address] [place] [address] Care Team Providers Care Monument Carver Name Role Phone Timmy-Azalia Recinos MD Primary Care Provider Unavailable Shaw Cervantes MD Unavailable [phone] Ryan Jenkins MD Unavailable [phone] Rosalva Stern PA-C Unavailable Charbel Poe Primary Care Provider Unavailabl e Encounter Details Date Type Department Care Team Description 11/08/2019 [facility] Medical Records [address] [place] [id number] [place] [address] Social History Tobacco Use Types Packs/Day Years [...] on filedocumented in this encounter Care Teams Monument Carver Relationship Specialty Start Date End Date Azalia Esposito MD PCP - General Internal Medicine 12/02/1502/20/21 Charbel Poe [address] [place] [address] PCP - General Internal Medicine 02/21/21 Shaw Cervantes MD Medical [facility] [address] [place], [place] [address] Specialist Cardiovascular Disease 02/18/21 Ryan Jenkins MD [address] [place] [address] Specialist Cardiology 02/18/21 Rosalva Stern PA-C [address] [place] [address] Specialist Cardiology 02/18/21 documented as of this encounter
--- OUTSIDE RECORDS SUMMARY | 2024-09-26 16:00 | XMS_ITS | Encounter Summary ---
Author Organization [facility] Address [address] [place] [address] Care Team Providers Care Wrapper Stitcher Name Role Phone Timmy-Azalia Recinos MD Primary Care Provider Unavailable Shaw Cervantes MD Unavailable [phone] Ryan Jenkins MD Unavailable Rosalva Stern PA-C Unavailable Charbel Poe Primary Care Provider Unavailabl e Encounter Details Date Type Department Care Team Description 11/10/2019 [facility] Medical Records [address] [place] [address] Yasmeen Murrell Social History Tobacco Use Types [...] on filedocumented in this encounter Care Teams Wrapper Stitcher Relationship Specialty Start Date End Date Azalia Esposito MD PCP - General Internal Medicine 12/02/1502/20/21 Charbel Poe [address] [place] [address] PCP - General Internal Medicine 02/21/21 Shaw Cervantes MD [address] [facility] [address] [place], [place] [address] Specialist Cardiovascular Disease 02/18/21 Ryan Jenkins MD [address] [place] [address] Specialist Cardiology 02/18/21 Rosalva Stern PA-C [address] [place] [address] Specialist Cardiology 02/18/21 documented as of this encounter
--- OUTSIDE RECORDS SUMMARY | 2024-09-26 16:00 | XMS_ITS | Encounter Summary ---
Author Organization [facility] Address [address] [place] [address] Care Team Providers Care Manager Stone Name Role Phone Timmy-Azalia Recinos MD Primary Care Provider Unavailable Shaw Cervantes MD Unavailable [phone] Ryan Jenkins MD Unavailable [phone] Rosalva Stern PA-C Unavailable Charbel Poe Primary Care Provider Unavailabl e Encounter Details Date Type Department Care Team Description 09/28/2019 New Car Inspector Report Medical Records [address] [place] [address] Shaw Cervantes MD [address] [place] [address] Social History Tobacco Use Types Packs/Day Years [...] filedocumented in this encounter Care Teams Manager Stone Relationship Specialty Start Date End Date Azalia Esposito MD PCP - General Internal Medicine 12/02/1502/20/21 Charbel Poe [address] [place] [address] PCP - General Internal Medicine 02/21/21 Shaw Cervantes MD [address] [place] [address] Specialist Cardiovascular Disease 02/18/21 Ryan Jenkins MD [address] [place] [address] Specialist Cardiology 02/18/21 Rosalva Stern PA-C [address] [place] [address] Specialist Cardiology 02/18/21 documented as of this encounter
== END 2024-09-26 13:26 | disposition home or self-care (01) ==
LOC: HO.ACS 13:06
PROVIDERS: PCP Internal Medicine; Visit Provider Internal Medicine Medical Oncology
DX: Z79.01 Long term (current) use of anticoagulants (principal)

== ENCOUNTER → 2024-09-26 13:06 | Outpatient (BNVA) | payer MEDICARE, SELFPAY | PROVIDERS: PCP Internal Medicine; Visit Provider Internal Medicine Medical Oncology | DX: I48.0 Paroxysmal atrial fibrillation (principal); Z51.81 Encounter for therapeutic drug level monitoring; Z79.01 Long term (current) use of anticoagulants | CPT/HCPCS: 85610; 99211 ==

== ENCOUNTER → 2024-10-13 23:59 | Outpatient (BNV) | payer MEDICARE, SELFPAY ==
--- NOTE | 2024-10-15 08:41 | MHC.OFFVIS ---
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 Mother No problems noted. Brother Esophageal cancer Social History Household Members: None Housing: Condominium Do you presently have visiting nurse or other home services: No Alcohol intake: current Alcohol intake frequency: other Comment: no telesitter available at this time Patient Tobacco Use Status: Current someday Tobacco user Tobacco use type: Cigarette Cigarette Packs Per Day: 0.5 Cigarettes Per Day: 10 Years Smoked: (onset 18yo, 1-1.5ppd x 53yrs, 65pyh - now 1cig/day) e-Cigarette/Vaping Use: Never Used Second Hand Smoke Exposure: Yes Advance Directives Date on File: 07/01/20 service: No Current occupational status: retired Current occupation: RETIRED Current occupational exposures/hazards: No Cognitive needs: Yes (walker) Hearing needs: No Vision needs: No Office Procedures Cardiac Device Check Cardiac Device Check Details: Date of service- 10/13/2024 ; Battery life 65%; normal lead parameters; AP 3%; MUSIC PRODUCER 99%; no significant arrhythmias. Overall normal device function. [id number] Cardiac Device Interrogation, pacemaker Procedure code (CPT) selection complete Assessment & Plan Assessment & Plan (1) Pacemaker: Onset Date: ~06/2020 Comment: (Biotronik DCPP - placed 07/01/2020) Code(s): Z95.0 - Presence of cardiac pacemaker Category: Medical (2) Complete heart block: Code(s): I44.2 - Atrioventricular block, complete Category: Medical Plan x Coding Level of Care Code Procedure Only Diagnoses Pacemaker Z95.0 Complete heart block I44.2 CPT Codes Cardiac Device Check - Cardiac Device 12: [id number] Cardiac Device Interrogation, pacemaker ([id number])
== END ==
PROVIDERS: PCP Internal Medicine; Visit Provider Internal Medicine
DX: I44.2 Atrioventricular block, complete (principal); Z95.0 Presence of cardiac pacemaker
CPT/HCPCS: 93294

== ENCOUNTER 2024-10-23 10:28 | Outpatient (AMB) | payer MEDICARE, SELFPAY ==
[2024-10-23 10:43] LABS: Prothrombin Time Whole Bld POC 20.1 sec (11.1-13.5); ~PT, ~INR - Anti Coag Clinic 1.7 (0.9-1.1)
--- NOTE | 2024-10-23 10:55 | MHC.OFFVISCO ---
Intake Intake Visit Reasons: Anticoagulation Allergies head and shoulders shampoo Adverse Reaction (Severe, Uncoded 10/23/24 10:36) burn Medication List - Last Reconciled 10/23/24 by Jerilyn Streeter RN albuterol sulfate 90 mcg/actuation 2 puffs inhalation Q6H PRN budesonide-formoterol 80-4.5 mcg/actuation 2 puffs inhalation BID 90 days ipratropium-albuterol 0.5 mg-3 mg(2.5 mg base)/3 mL 3 mL inhalation QID lisinopril 2.5 mg (1/2 x 5 mg) PO DAILY metoprolol succinate ER 100 mg (2 x 50 mg) PO DAILY multivitamin (Daily Multi-Vitamin tablet) 1 tab PO DAILY nebulizers To use every 4 hours omeprazole 40 mg PO BID 90 days Oxygen Home Use As directed spironolactone 12.5 mg (1/2 x 25 mg) PO DAILY warfarin 2.5 mg See Protocol PO TUTH warfarin 5 mg See Protocol PO SUMOWEFRSA warfarin Take 5mg orally daily, with dose adjustments as per Anticoagulation Services 90 days Nursing Note INR: 1.7?out of therapeutic range of 2-3 Last INR was 1.7 on 09/26 and dose was boosted by 2.5mg Pt denies missed dose or changes in diet Medications and supplements reviewed Patient status: usual state of health Medications or supplements: no changes Denies any signs and symptoms of bleeding or clotting or unusual bruising Bleeding, bruising, clotting discussed Nutritional guidance given: to avoid greens today Dose: increase today's dose to 5mg (2.5mg) then usual dose of 5mg the next day then increase next dose to 5mg (usual 2.5mg) then resume usual dose of 5mg X 4 days and 2.5mg X 3 days (m/W/F). This is a total increase in dose by 5mg F/U INR Date: 4 weeks?? Patient verbalizing understanding of instructions given. Anti-Coag Initial Assessment Social Hx Patient Tobacco Use Status: Current someday Tobacco user Tobacco use type: Cigarette Smoking packs per day: 0.5 alcohol intake: current Alcohol intake frequency: other Cardiovascular Hx: HTN, CHF, Arrhythmias and Other Lung Disease HX: COPD and Other Blood Disorder Hx: Anemia GI Hx: Diverticulosis Neurological Hx: Other Cancer HX: No Psych. 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
== END 2024-10-23 11:00 | disposition home or self-care (01) ==
LOC: HO.ACS 10:28
PROVIDERS: PCP Internal Medicine; Visit Provider Internal Medicine Medical Oncology
DX: Z79.01 Long term (current) use of anticoagulants (principal)

== ENCOUNTER → 2024-10-23 10:28 | Outpatient (BNVA) | payer MEDICARE, SELFPAY | PROVIDERS: PCP Internal Medicine; Visit Provider Internal Medicine Medical Oncology | DX: J44.9 Chronic obstructive pulmonary disease, unspecified (principal); I44.2 Atrioventricular block, complete; I42.8 Other cardiomyopathies; K29.81 Duodenitis with bleeding; D62 Acute posthemorrhagic anemia; Z79.899 Other long term (current) drug therapy; I48.0 Paroxysmal atrial fibrillation; Z51.81 Encounter for therapeutic drug level monitoring; Z79.01 Long term (current) use of anticoagulants | CPT/HCPCS: 85610; 96127; 99211; 99212 ==

== ENCOUNTER 2024-10-23 11:11 | Outpatient (AMB) | payer MEDICARE, SELFPAY ==
--- NOTE | 2024-10-23 11:13 | A.OFFPC_ITS ---
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 Accompanied by: Self / Same As Patient Allergies head and shoulders shampoo Adverse Reaction (Severe, Uncoded 10/23/24 11:42) burn Medication List - Last Reconciled 10/23/24 by Vinh Briceño MD albuterol sulfate 90 mcg/actuation 2 puffs inhalation Q6H PRN budesonide-formoterol 80-4.5 mcg/actuation 2 puffs inhalation BID 90 days ipratropium-albuterol 0.5 mg-3 mg(2.5 mg base)/3 mL 3 mL inhalation QID lisinopril 2.5 mg (1/2 x 5 mg) PO DAILY metoprolol succinate ER 100 mg (2 x 50 mg) PO DAILY multivitamin (Daily Multi-Vitamin tablet) 1 tab PO DAILY nebulizers To use every 4 hours omeprazole 40 mg PO BID 90 days Oxygen Home Use As directed spironolactone 12.5 mg (1/2 x 25 mg) PO DAILY warfarin 2.5 mg See Protocol PO TUTH warfarin 5 mg See Protocol PO SUMOWEFRSA warfarin See Protocol Take 5mg orally daily, with dose adjustments as per Anticoagulation Services 90 days Tobacco use date assessed: 10/23/24 Fall risk assessment: No Falls in past year Last assessed Fall Risk: 10/23/24 Dental Screening Dental Screen Date: 10/23/24 Did you have a dental visit in the last 12 months?: Yes Did you have a dental problem in the last 6 months where you did not have access to dental care?: No Was dental information given to patient?: Patient has dentist HPI 2 Month F/U ANA Poe HPI Details Patient comes in today for his follow up visit - he is transferring over from Dr. Poe, who retired from the practice a couple of months ago Patient states that he feels okay He has advanced COPD and is on oxygen / and follows up with Dr. August at [facility] regularly He denies any headaches or dizziness Denies any chest pains, has frequent ALEXIS, which is chronic He also has a pacemaker and this is being remotely monitored by cardiology No nausea/vomiting, no abdominal pain No change in bowel habits noted He was admitted to [facility] a couple of months ago for pneumonia and a slow GI bleed [facility] Medical History (Updated 11/08/24 @ 05:21 by Vinh Briceño MD) Anemia Nonischemic cardiomyopathy Paroxysmal atrial fibrillation Pacemaker (~06/2020) Current use of anticoagulant therapy Hand dermatitis Respiratory failure with hypoxia Chronic bronchitis Personal history of nicotine dependence Hypertension 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 Mother No problems noted. Brother Esophageal cancer Social History Household Members: None Housing: Condominium Do you presently have visiting nurse or other home services: No Alcohol intake: current Alcohol intake frequency: other Comment: no telesitter available at this time Patient Tobacco Use Status: Current someday Tobacco user Tobacco use type: Cigarette Cigarette Packs Per Day: 0.5 Cigarettes Per Day: 10 Years Smoked: (onset 18yo, 1-1.5ppd x 53yrs, 65pyh - now 1cig/day) e-Cigarette/Vaping Use: Never Used Second Hand Smoke Exposure: Yes Advance Directives Date on File: 07/01/20 service: No Current occupational status: retired Current occupation: RETIRED Current occupational exposures/hazards: No Cognitive needs: Yes (walker) Hearing needs: No Vision needs: No Questionnaire PHQ-9 Over the last 2 weeks, how often have you been bothered by any of the following problems? 1. Little interest or pleasure in doing things: not at all 2. Feeling down, depressed, or hopeless: not at all 3. Trouble falling or staying asleep, or sleeping too much: not at all 4. Feeling tired or having little energy: not at all 5. Poor appetite or overeating: not at all 6. Feeling bad about yourself - or that you are a failure or have let yourself or your family down: not at all 7. Trouble concentrating on things, such as reading the newspaper or watching television: not at all 8. Moving or speaking so slowly that other people could have noticed. Or the opposite - being so fidgety or restless that you have been moving around a lot more than usual: not at all 9. Thoughts that you would be better off or of hurting yourself in some way: not at all Total score: 0 Depression Screening Interpretation: Negative Depression Screening Done: Yes 00182 - PHQ-9 Billing: Yes Source: Developed by Drs. Paramjit Wade, Brooke Browne, Max Roberson and colleagues, with an educational seble from [employer]. Thrive Questionnaire Date Thrive assessed: 10/23/24 I am a: Patient What is your living situation today?: I have a steady place to live Within the past 12 months, did the food you bought not last and you didn't have the money to get more?: Never true Within the past 12 months, did you worry whether your food would run out before you got money to buy more?: Never true Do you have trouble paying for medicines?: No Do you have trouble getting transportation to medical appointments?: No Do you have trouble paying your heating and electricity bill?: No Do you have trouble taking care of your child, family member or friend?: No Do you have trouble with day-to-day activities such as bathing, preparing meals, shopping, managing finances, etc.?: No Are you currently unemployed and looking for a job?: No Are you interested in more education?: No Please select the resources that you would like help with: None Currently or been in a relationship where the following occur: No concerns reported THRIVE Score: 0 AUDIT C Alcohol Use Questionnaire (AUDIT-C) 1. How often do you have a drink containing alcohol?: Never 3. How often do you have six or more drinks on one occasion?: Never Total Score: 0 Score Reviewed/Action Taken: Yes ALEJO-7 AMB Questionnaire ALEJO-7 Date ALEJO - 7 assessed: 10/23/24 Feeling nervous, anxious, or on edge: 0 = Not at all Not being able to stop or control worryin = Not at all Worrying too much about different things: 0 = Not at all Trouble relaxin = Not at all Being so restless that it is hard to sit still: 0 = Not at all Becoming easily annoyed or irritable: 0 = Not at all Feeling afraid as if something awful might happen: 0 = Not at all Total ALEJO-7 score (0-4 normal; 5-9 mild; 10-14 moderate; 15-21 severe): 0 Source: Developed by Drs. Paramjit Wade, Brooke Browne, Max Roberson and colleagues, with an educational seble from [employer]. Review of Systems Const Denies chills, Reports fatigue, Denies fever(s) and Denies headache(s) Eyes Reports loss of vision (blind in the right eye) ENT Denies dysphagia, Denies dizziness, Denies otalgia, Denies headache(s), Denies neck pain, Denies odynophagia and Denies sore throat Card Denies chest pain, Denies irregular heart rhythm and Reports dyspnea on exertion (chronic) Resp Denies chest congestion, Reports cough (occasional, non-productive), Reports dyspnea on exertion (chronic) and Denies wheezing GI Denies abdominal pain, Denies hematochezia, Denies constipation, Denies dysphagia, Denies heartburn, Denies diarrhea, Denies nausea, Denies odynophagia and Denies vomiting Denies difficulty urinating, Denies dysuria, Denies nocturia and Denies urinary frequency Musc Denies back pain and Denies neck pain Skin/Breast Denies rash Neuro Denies dizziness, Denies headache(s) and Reports loss of vision (blind in the right eye) Psych Denies anxiety and Denies depression Endo Reports fatigue Aller/Immun Denies wheezing Physical exam (Primary Care) Vital Signs: Last Vital Signs Pulse 75 10/23/24 11:14 BP 110/80 10/23/24 11:14 Pulse Ox 95 10/23/24 11:14 Oxygen Delivery Method Nasal Cannula 10/23/24 11:14 Oxygen Flow Rate 3 10/23/24 11:14 BMI result Body Mass Index 29.6 Tobacco/Smoking Status: Tobacco use Status Tobacco use date assessed 10/23/24 10/23/24 11:17 Patient Tobacco Use Status Current someday Tobacco 10/23/24 11:17 Tobacco use type Cigarette 10/23/24 11:17 e-Cigarette/Vaping Use Never Used 10/23/24 11:17 PHQ-9: PHQ-9 Score PHQ-9: Total score 0 11/07/24 23:48 Depression Screening Interpretation: Negative Thrive Assessment: Date of Thrive Assessment Date Thrive assessed 10/23/24 10/23/24 11:17 Currently or been in a relationship where the following occur: No concerns reported Const General: no acute distress and alert HENMT Ears: TM's normal bilaterally and EAC's normal Throat: Yes posterior oropharynx normal and Yes tonsils normal (no TP congestion) Neck Neck: Yes supple and No lymphadenopathy Thyroid: Thyroid normal Resp Auscultation: clear to auscultation bilaterally, no rales, no wheezes and diminished lung sounds bilateral Cardio Rate: regular rate Rhythm: regular rhythm Heart sounds: no murmurs GI Palpation (GI): Soft to palpation and nontender Auscultation: normal bowel sounds General: Yes no CVA tenderness Back/Spine/Pelvis Back: no CVA tenderness Thoracic/Lumbar Spine: No lumbar spinal tenderness Skin Rashes: no rashes Extrem General: Yes no clubbing, cyanosis or edema Results Reviewed Results Reviewed: Laboratory Tests 10/23/24 10:41 Whole Blood INR 1.7 H Coding Level of Care Code Est Pt Level 4 (81898) Diagnoses Chronic obstructive pulmonary disease, unspecified COPD type J44.9 COPD type: unspecified COPD Complete heart block I44.2 Nonischemic cardiomyopathy I42.8 Paroxysmal atrial fibrillation I48.0 Gastrointestinal hemorrhage associated with duodenitis K29.81 GI bleed type/associated pathology: duodenitis Anemia due to acute blood loss D62 Anemia type: other cause Other causes of anemia: acute posthemorrhagic Additional Codes PHQ-9 - 54007 - PHQ-9 Billing: Yes ([id number]) Assessment & Plan Assessment & Plan (1) COPD (chronic obstructive pulmonary disease): Comment: Advanced chronic obstructive pulmonary disease. Recent acute exacerbation due to pneumonia, which has resolved and he seems to be at baseline at present. Code(s): J44.9 - Chronic obstructive pulmonary disease, unspecified Category: Medical Qualifiers: COPD type: unspecified COPD Qualified Code(s): J44.9 - Chronic obstructive pulmonary disease, unspecified Plan: Patient has chronic shortness of breath due to his COPD and he is oxygen- dependent Continue Budesonide-formoterol 80-4.5 mcg 2 inhalations BID and Albuterol HFA 1 to 2 inhalations Q 6 hours PRN He also has Duoneb that he can use via nebulization QID PRN Follow up with pulmonary as scheduled (2) Complete heart block: Code(s): I44.2 - Atrioventricular block, complete Category: Medical Plan: Patient currently has a pacemaker in place and is being remotely monitored by cardiology (3) Nonischemic cardiomyopathy: Comment: 02/04/2023, LAD and left circumflex with minimal luminal irregularities, left main and RCA normal Code(s): I42.8 - Other cardiomyopathies Category: Medical Plan: Echocardiogram done on 07/02/20 showed EF of 45-50%. Repeat echocardiogram on 11/17/2022 showed EF of 32%. His most recent echocardiogram on 04/19/2023 revealed (+) mildly reduced LV systolic function with LVEF of 45-50% with impaired relaxation filling pattern Cardiac catheterization done on 02/04/23 revealed only (+) minimal luminal irregularities of the LAD and left circumflex Continue Metoprolol ER 100 mg QD and Lisinopril 2.5 mg QD for neurohormonal modulation Continue Spironolactone 12.5 mg QD Follow up with cardiology as scheduled (4) Paroxysmal atrial fibrillation: Code(s): I48.0 - Paroxysmal atrial fibrillation Category: Medical Plan: Patient is currently in sinus rhythm Continue Metoprolol ER 100 mg QD Continue Coumadin daily for thromboembolism prophylaxis (5) GI bleed: Code(s): K92.2 - Gastrointestinal hemorrhage, unspecified Category: Medical Qualifiers: GI bleed type/associated pathology: duodenitis Qualified Code(s): K29.81 - Duodenitis with bleeding Plan: EGD done at [facility] on 08/16/2024 revealed (+) duodenitis with healing ulcer; Bx was benign Continue Omeprazole 40 mg BID Follow up with GI as scheduled (6) Anemia: Code(s): D64.9 - Anemia, unspecified Category: Medical Qualifiers: Anemia type: other cause Other causes of anemia: acute posthemorrhagic Qualified Code(s): D62 - Acute posthemorrhagic anemia Plan: H/H was still low at 8.3/28.2 when his CBC was last checked on 08/25/2024, likely due to his GI bleed He required blood transfusions during his last hospitalization in August 2024 for GI bleeding and pneumonia/COPD exacerbation Will have patient recheck his CBC and labs in 3 months for follow up Plan Follow up in 3 months Orders: Orders Complete Blood Count Auto Diff 3 Months D64.9 - Anemia, unspecified B Type Natriuretic Peptide 3 Months I50.9 - Heart failure, unspecified TSH reflex Free T4 3 Months E78.00 - Pure hypercholesterolemia, unspecified Vitamin D 25-OH Total 3 Months E55.9 - Vitamin D deficiency, unspecified Lipid Panel 3 Months E78.00 - Pure hypercholesterolemia, unspecified Comprehensive [place]y. Panel Fast 3 Months E78.00 - Pure hypercholesterolemia, unspecified UA CC w/rflx Micro + Cult 3 Months R30.0 - Dysuria
[2024-10-23 11:14] VITALS: BP 110/80; PULSE 75; O2SAT 95; BMI 29.6
--- OUTSIDE RECORDS SUMMARY | 2024-10-23 12:04 | XMS_ITS | Clinical Summary ---
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 Diverticulosis. UPPER GASTROINTESTINAL ENDOSCOPY 07/09/2009 PROCEDURE: RI UPPER GI ENDOSCOPY PERFORMED; COMMENT: [facility], GI bleed. No significant abnormalities. Medical History Medical History Date Comments Iron deficiency anemia 07/16/2009 DX:Iron d eficiency anemia Tobacco abuse 07/16/2009 DX:Tobacco abuse ; COMMENT: Has tried Wellbutrin, Chantix, hypnotherapy, nicotine patch and gum 10/22 - [employer] unable to contact after 5 attempts Diverticulosis, sigmoid 07/16/2009 DX:Diver ticulosis, sigmoid; COMMENT: Lower GI bleed 06/23. Admitted to [facility]. Colonoscopy 06/23. 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
== END 2024-10-23 11:57 | disposition home or self-care (01) ==
LOC: HO.HMCH 11:12
PROVIDERS: PCP Internal Medicine; Visit Provider Internal Medicine
DX: J44.9 Chronic obstructive pulmonary disease, unspecified (principal); I44.2 Atrioventricular block, complete; I42.8 Other cardiomyopathies; I48.0 Paroxysmal atrial fibrillation; K29.81 Duodenitis with bleeding; D62 Acute posthemorrhagic anemia

== ENCOUNTER 2024-11-27 13:35 | Outpatient (AMB) | payer MEDICARE, SELFPAY ==
--- NOTE | 2024-11-27 13:42 | A.OFFVIS_ITS ---
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 Allergies head and shoulders shampoo Adverse Reaction (Severe, Uncoded 11/27/24 13:52) burn Medication List - Last Reconciled 11/27/24 by Rey August MD albuterol sulfate 90 mcg/actuation 2 puffs inhalation Q6H PRN budesonide-formoterol 80-4.5 mcg/actuation 2 puffs inhalation BID 90 days ipratropium-albuterol 0.5 mg-3 mg(2.5 mg base)/3 mL 3 mL inhalation QID lisinopril 2.5 mg (1/2 x 5 mg) PO DAILY metoprolol succinate ER 100 mg (2 x 50 mg) PO DAILY multivitamin (Daily Multi-Vitamin tablet) 1 tab PO DAILY nebulizers To use every 4 hours omeprazole 40 mg PO BID 90 days Oxygen Home Use As directed spironolactone 12.5 mg (1/2 x 25 mg) PO DAILY warfarin 2.5 mg See Protocol PO TUTH warfarin 5 mg See Protocol PO SUMOWEFRSA warfarin See Protocol Take 5mg orally daily, with dose adjustments as per Anticoagulation Services 90 days Do you need a note to return to daycare/school/sports/work: No HPI HPI COPD: Details: Mr. Sherman 74 years old gentleman comes for follow-up for his COPD/respiratory failure. He has been stable since his last visit, but gets short of breath on minimal exertion, and also has intermittent wheezing. Poor gentleman is still smoking a few cigarettes per day. Has difficulty in resisting the addictive dependence on cigarettes. He say is since about 2 days ago ( Day ) he has not smoked. Breathing is relatively stable with mild intermittent cough. He is short of breath on exertion even though he walks with a walker slowly. 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 Mother No problems noted. Brother Esophageal cancer Social History Household Members: None Housing: Condominium Do you presently have visiting nurse or other home services: No Alcohol intake: current Alcohol intake frequency: other Comment: no telesitter available at this time Patient Tobacco Use Status: Current someday Tobacco user Tobacco use type: Cigarette Cigarette Packs Per Day: 0.5 Cigarettes Per Day: 10 Years Smoked: (onset 18yo, 1-1.5ppd x 53yrs, 65pyh - now 1cig/day) e-Cigarette/Vaping Use: Never Used Second Hand Smoke Exposure: Yes Advance Directives Date on File: 07/01/20 service: No Current occupational status: retired Current occupation: RETIRED Current occupational exposures/hazards: No Cognitive needs: Yes (walker) Hearing needs: No Vision needs: No Review of Systems Const All systems reviewed & are unremarkable except as noted in HPI and below Eyes Reports loss of vision (HE IS BLIND IN RIGHT EYE) ENT Reports no additional complaints Card Denies chest pain, Reports irregular heart rhythm (ATRIAL FIBRILLATION) and Denies leg edema Resp Reports as per HPI GI Reports no additional complaints Reports no additional complaints Musc Reports no additional complaints Skin/Breast Reports system reviewed and no additional complaints, except as documented Neuro Reports no additional complaints and Reports loss of vision (HE IS BLIND IN RIGHT EYE) Psych Reports no additional complaints Physical Exam Vital Signs: Last Vital Signs Pulse 81 11/27/24 13:43 BP 110/62 11/27/24 13:43 Pulse Ox 91 L 11/27/24 13:43 Oxygen Delivery Method Nasal Cannula 11/27/24 13:43 Oxygen Flow Rate 3 11/27/24 13:43 BMI result Body Mass Index 30.0 Const General: comfortable, no acute distress, alert and awake Orientation/consciousness: patient oriented x3 HEENT Head: Yes normal to inspection General nose exam: No nasal polyps present and No nasal discharge present Face and sinus: Yes sinuses nontender Mouth: oropharynx normal Throat: Yes posterior oropharynx normal Eyes General: appearance normal, both eyes and all related structures Visual Chapman: visual chapman abnormal by confrontation (Blind in right eye) Neck Neck: Yes normal visual inspection, Yes no lymphadenopathy, Yes trachea midline and Yes no JVD Thyroid: Thyroid normal Chest Chest palpation & inspection: normal inspection of the chest, normal palpation of entire chest wall and no tenderness Resp Other: Percussion note is hyper-resonant, breath sounds are very distant with prolonged expiratory phase. No wheezes or rhonchi are heard, no crepitations. Cardio Palpation: normal PMI Rate: regular rate Rhythm: regular rhythm Heart sounds: no gallops and no murmurs GI Palpation (GI): Soft to palpation, nontender, No hepatosplenomegaly present and no masses Auscultation: normal bowel sounds Back/Spine/Pelvis Thoracic/Lumbar Spine: thoracic and lumbar spine normal to inspection Skin General skin exam: no rashes or lesions noted Neuro General: patient oriented x3 and no focal motor deficits Cranial nerves: Yes CN's II-XII intact bilaterally Extrem General: Yes normal to inspection, Yes no clubbing, cyanosis or edema and Yes no calf tenderness Psych Appearance: grossly normal and well kempt Speech and movement: Normal speech and movement present Assessment & Plan Assessment & Plan (1) COPD (chronic obstructive pulmonary disease): Comment: Advanced chronic obstructive pulmonary disease. Recent acute exacerbation due to pneumonia, which has resolved and he seems to be at baseline at present. Code(s): J44.9 - Chronic obstructive pulmonary disease, unspecified Category: Medical Qualifiers: COPD type: unspecified COPD Qualified Code(s): J44.9 - Chronic obstructive pulmonary disease, unspecified Plan: Continue to use Budesonide-formoterol 80-4.52 puffs b.i.d. ipratropium- albuterol solution in the nebulizer Q 6 hours W/A (2) Personal history of nicotine dependence: Comment: (former smoker 30+PYH, had quit for a while but back to smoking and currently he is smoking half pack a day . Claims that he has now quit completely since the last weekend, father's day. Code(s): Z87.891 - Personal history of nicotine dependence Category: Medical Plan: Encouraged to stay away from smoking. (3) Multiple pulmonary nodules: Comment: RECENT LDCT. SHOWS MULTIPLE PULMONARY NODULES UN CHANGED FROM BEFORE. IN ADDITION SHOWING INCREASED BRONCHIAL WALL THICKENING AND PERIBRONCHIAL OPACITIES. Code(s): R91.8 - Other nonspecific abnormal finding of lung field Category: Medical Plan: Findings explained to the patient (4) Exercise hypoxemia: Comment: (Exercise induced Hypoxemia - using portable O2) HE ALSO USES O2 P.R.N. AT HOME, BUT NOT AT NIGHT. Code(s): R09.02 - Hypoxemia Category: Medical Plan: Continue to use O2 3 L/minute when coming outdoors or walking. Does not need to use O2 at night Coding Level of Care Code Est Pt Level 3 (60975) Diagnoses Chronic obstructive pulmonary disease, unspecified COPD type J44.9 COPD type: unspecified COPD Personal history of nicotine dependence Z87.891 Multiple pulmonary nodules R91.8 Exercise hypoxemia R09.02
[2024-11-27 13:43] VITALS: BP 110/62; PULSE 81; O2SAT 91
--- OUTSIDE RECORDS SUMMARY | 2024-11-27 15:07 | XMS_ITS | Clinical Summary ---
Author Organization [facility] Address [address] [place] [address] Care Team Providers Care Field Investigator Name Role Phone Charbel Poe MD Primary Care Provider [phone] Surgical History Surgery Date Site/Laterality Comments OTHER SURGICAL HISTORY PROCEDURE: DENIES PREVIOUS SURGERY COLONOSCOPY 07/09/2009 PROCEDURE: HISTORICAL COLONOSCOPY; COMMENT: [facility]. Diverticulosis. UPPER GASTROINTESTINAL ENDOSCOPY 07/09/2009 PROCEDURE: [place] UPPER GI ENDOSCOPY PERFORMED; COMMENT: [facility], GI bleed. No significant abnormalities. Medical History Medical History Date Comments Iron deficiency anemia 07/16/2009 DX:Iron d eficiency anemia Tobacco abuse 07/16/2009 DX:Tobacco abuse ; COMMENT: Has tried Wellbutrin, Chantix, hypnotherapy, nicotine patch and gum 10/22 - [employer] unable to contact after 5 attempts Diverticulosis, sigmoid 07/16/2009 DX:Diver ticulosis, sigmoid; COMMENT: Lower GI bleed 06/23. Admitted to [facility]. Colonoscopy 06/23. 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 [...] Documents on File Type Date Recorded Patient Battery Inspector Expl anation Health Care Decision (hx) 02/08/2020 AD PAZ DIRECTIVE Health Care Decision (hx) 02/08/2020 AD PAZ DIRECTIVE Health Care Decision (hx) 02/08/2020 AD PAZ DIRECTIVE Health Care Decision (hx) 02/08/2020 AD PAZ DIRECTIVE Health Care Decision (hx) 02/08/2020 AD PAZ DIRECTIVE Care Teams Field Investigator Relationship Specialty Start Date End Date Charbel Poe MD [address] [place] [address] [address] [place] [address] PCP - General Internal Medicine 02/21/21
== END 2024-11-27 14:03 | disposition home or self-care (01) ==
LOC: HO.HPS 13:36
PROVIDERS: PCP Internal Medicine; Visit Provider Internal Medicine
DX: J44.9 Chronic obstructive pulmonary disease, unspecified (principal); Z87.891 Personal history of nicotine dependence; R91.8 Other nonspecific abnormal finding of lung field; R09.02 Hypoxemia
CPT/HCPCS: 99213

== ENCOUNTER → 2024-11-27 13:35 | Outpatient (BNVA) | payer MEDICARE, SELFPAY | PROVIDERS: PCP Internal Medicine; Visit Provider Internal Medicine | DX: R09.02 Hypoxemia (principal); J44.9 Chronic obstructive pulmonary disease, unspecified; Z87.891 Personal history of nicotine dependence; R91.8 Other nonspecific abnormal finding of lung field | CPT/HCPCS: 99212 ==

== ENCOUNTER 2024-12-04 12:28 | Outpatient (AMB) | payer MEDICARE, SELFPAY ==
--- NOTE | 2024-12-04 13:15 | A.OFFVIS_ITS ---
Vital Signs 12/04/24 13:16 Height 5 ft 8 in Weight 195 lb 12.328 oz BMI 29.8 BP 108/52 L Blood Pressure Location Lt brachial Position Sitting Pulse 88 Pulse Source Monitor Intake Visit Reasons: 6 mth w/ biotronic Clean In Places Operator Required: No Allergies head and shoulders shampoo Adverse Reaction (Severe, Uncoded 12/04/24 13:17) burn Medication List - Last Reconciled 12/04/24 by mAbar De Paz RESPOOLER-C albuterol sulfate 90 mcg/actuation 2 puffs inhalation Q6H PRN budesonide-formoterol 80-4.5 mcg/actuation 2 puffs inhalation BID 90 days ipratropium-albuterol 0.5 mg-3 mg(2.5 mg base)/3 mL 3 mL inhalation QID lisinopril 2.5 mg (1/2 x 5 mg) PO DAILY metoprolol succinate ER 100 mg (2 x 50 mg) PO DAILY multivitamin (Daily Multi-Vitamin tablet) 1 tab PO DAILY nebulizers To use every 4 hours omeprazole 40 mg PO BID 90 days Oxygen Home Use As directed spironolactone 12.5 mg (1/2 x 25 mg) PO DAILY warfarin 2.5 mg See Protocol PO TUTH warfarin 5 mg See Protocol PO SUMOWEFRSA warfarin See Protocol Take 5mg orally daily, with dose adjustments as per Anti coagulation Services 90 days HPI HPI 6 mth w/ biotronic: Details: Stan is a 74-year-old male with past medical history of hypertension, COPD, O2 dependent, complete heart block status post dual-chamber pacemaker placement, nonischemic cardiomyopathy, no significant CAD on cardiac catheterization who presents for follow-up. Today he is having significant difficulty breathing. He says his oxygen device is running with low battery in the outside air, 98 degrees, is affecting him. He says he did an updraft treatment earlier this morning. He declines ER evaluation even though it was recommended. He denies having any new or concerning symptoms such as chest discomfort or heart palpitations. No bleeding issues with his Coumadin use. Taking meds as directed. 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 Mother No problems noted. Brother Esophageal cancer Social History Household Members: None Housing: Condominium Do you presently have visiting nurse or other home services: No Alcohol intake: current Alcohol intake frequency: other Comment: no telesitter available at this time Patient Tobacco Use Status: Current someday Tobacco user Tobacco use type: Cigarette Cigarette Packs Per Day: 0.5 Cigarettes Per Day: 10 Years Smoked: (onset 18yo, 1-1.5ppd x 53yrs, 65pyh - now 1cig/day) e-Cigarette/Vaping Use: Never Used Second Hand Smoke Exposure: Yes Advance Directives Date on File: 07/01/20 service: No Current occupational status: retired Current occupation: RETIRED Current occupational exposures/hazards: No Cognitive needs: Yes (george) Hearing needs: No Vision needs: No Review of Systems Const All systems reviewed & are unremarkable except as noted in HPI and below ENT Denies dizziness Card Denies chest pain, Denies chest pain at rest, Denies chest pain with activity, Denies rapid heart rate, Denies pedal edema, Denies edema, Denies leg edema, Denies lightheadedness, Denies palpitations, Reports dyspnea, Reports dyspnea on exertion and Denies orthopnea Resp Denies cough, Reports dyspnea and Reports dyspnea on exertion GI Denies hematochezia and Denies change in stool character Musc Details: uses walker Reports abnormal gait, Denies limited range of motion, Denies muscle cramps, Denies muscle weakness, Denies numbness, Denies radiating pain into limb, Denies stiffness and Denies tingling Neuro Reports abnormal gait, Denies dizziness, Denies numbness and Denies tingling Endo Denies palpitations Physical Exam Vital Signs: Last Vital Signs Pulse 88 12/04/24 13:16 BP 108/52 L 12/04/24 13:16 BMI result Body Mass Index 29.8 Const Other: grunting respirations after walking - breathing less labored when sitting and not moving General: cooperative and well developed Orientation/consciousness: patient oriented x3 Neck Neck: Yes normal visual inspection Resp Other: Lungs diminished bilaterally Effort & Inspection: not able to speak in complete sentences, abnormal respiratory pattern, audible wheezes and grunting Auscultation: no crackles, no rales, no rhonchi and wheezes (Expiratory wheezes bilaterally) Cardio Jugular venous distension: no JVD Rate: regular rate Rhythm: regular rhythm Heart sounds: S1 normal heart sound present, S2 normal heart sound present, no murmurs and no rubs Neuro General: patient oriented x3 Extrem General: Yes normal to inspection and No no pedal edema Psych Appearance: grossly normal Mental Status: mental status grossly normal Speech and movement: Normal speech and movement present Office Procedures Cardiac Device Check Cardiac Device Check Details: Biotronik dual-chamber pacemaker interrogation today battery 6 years 10 months DDD mode, low rate 60, RA threshold 0.8 volts at 0.4 milliseconds, RV threshold 0.7 volts at 0.4 milliseconds no recent arrhythmia atrial paced 2% ventricular paced 99% 32297-LB Cardiac Device Check, pacemaker dual lead Procedure code (CPT) selection complete EKG Details: Today, read by me, atrial sensed and ventricular paced rhythm, rate 88 QTC 469 millisecond [id number], Complete Assessment & Plan Assessment & Plan (1) Shortness of breath: Code(s): R06.02 - Shortness of breath Category: Medical Plan: Hx of O2 dependant COPD. Noted to have significant shortness of breath with broken speech and grunting with walking on arrival. Breathing improved some with rest and O2 use. I had him use his albuteral inhaler. He refused ED evaluation. He reported that the Hot air outside had contributed to increased shortness of breath and wheezing. Called pulmonology, Dr August and he was able to see him today. Transported to pulmonology via wheelchair with O2 3 liters in use. (2) Nonischemic cardiomyopathy: Comment: 02/04/2023, LAD and left circumflex with minimal luminal irregularities, left main and RCA normal Code(s): I42.8 - Other cardiomyopathies Category: Medical Plan: History of cardiomyopathy with last echocardiogram 04/19/2023 showing EF 45-50%, impaired relaxation. He did undergo a cardiac catheterization on 02/04/23 which showed only minimal luminal irregularities of the LAD and left circumflex. He is having significant shortness of breath on exam but has expiratory wheezes, no rales. Labs 08/17/2024 showed potassium 4.6, creatinine 0.8. EKG today showing atrial sensed and ventricular paced rhythm, rate 88.He does not appear fluid overloaded. Continue metoprolol and lisinopril for neurohormonal modulation. Continue spironolactone. Continue to follow with pulmonology for COPD, O2 use. Signs and symptoms of heart failure reviewed with him. Cardiology follow-up 6 months, sooner if needed (3) S/P cardiac catheterization: Comment: 02/04/2023 lad and left circumflex minimal luminal irregularity Code(s): Z98.890 - Other specified postprocedural states Category: Surgical Plan: As above (4) Pacemaker: Onset Date: ~06/2020 Comment: (Biotronik DCPP - placed 07/01/2020) Code(s): Z95.0 - Presence of cardiac pacemaker Category: Medical Plan: Biotronik dual-chamber pacemaker in place. Interrogation today shows device is functioning normally. Next office interrogation due in 6 months. Remote monitoring in use. (5) Paroxysmal atrial fibrillation: Code(s): I48.0 - Paroxysmal atrial fibrillation Category: Medical Plan: History of paroxysmal atrial fibrillation with ablation 2018. No reports of heart palpitations. He is on metoprolol XL for heart rate control. He is on Coumadin for anticoagulation. He follows with the [facility] anticoagulation Clinic. INR goal 2-3. No bleeding issues reported EKG done today shows atrial sense, ventricular paced rhythm, rate 100. Device interrogation today shows 0% atrial fibrillation since last interrogation. (6) Personal history of nicotine dependence: Comment: (former smoker 30+PYH, had quit for a while but back to smoking and currently he is smoking half pack a day . Claims that he has now quit completely since the last weekend, father's day. Code(s): Z87.891 - Personal history of nicotine dependence Category: Medical Plan: Not smoking at present (7) COPD (chronic obstructive pulmonary disease): Comment: Advanced chronic obstructive pulmonary disease. Recent acute exacerbation due to pneumonia, which has resolved and he seems to be at baseline at present. Code(s): J44.9 - Chronic obstructive pulmonary disease, unspecified Category: Medical Qualifiers: COPD type: unspecified COPD Qualified Code(s): J44.9 - Chronic obstructive pulmonary disease, unspecified Plan: Follows with pulmonology Plan I assessed and discussed his current respiratory status, recommending ED evaluation for updraft and possible steroids and he refuses. I expressed much concern over his ability to get to his car and drive home with his breathing labored and the weather humid and 98 degrees. He was agreeable to follow Dr August's suggestion for pulmonary evaluation and treatment. For his heart with did review the importance of continuing his current medication regimen for cardiomyopathy and hypertension. I advised monitoring his hematocrit levels regularly due to iron deficiency anemia. He was instructed on light activity and to not go outside in the extreme heat. Patient Instructions: - Continue taking metoprolol, aldactone and lisinopril as prescribed. - Continue use of coumadin and follow with the anticoagulation clinic. - Use nebulizer and inhalers regularly, especially in poor weather. - Follow with Pulmonolgy for COPD. - ED evaluation as needed for breathing difficulties Patient was informed and verbally consented to the use of an ambient scribe for clinic note documentation during this visit. Visit time spent on chart review, interview, assessment, orders, documentation. Coding Level of Care Code Est Pt Level 4 (22871) Complex EM visit Add On G2211 Diagnoses Shortness of breath R06.02 Nonischemic cardiomyopathy I42.8 S/P cardiac catheterization Z98.890 Pacemaker Z95.0 Paroxysmal atrial fibrillation I48.0 Personal history of nicotine dependence Z87.891 Chronic obstructive pulmonary disease, unspecified COPD type J44.9 COPD type: unspecified COPD CPT Codes Cardiac Device Check - Cardiac Device 2: 79100-JJ Cardiac Device Check, pacemaker dual lead ([id number]) EKG - CPT: 56914-[id number], Complete ([id number]) Time Spent (min) 32
[2024-12-04 13:16] VITALS: BP 108/52; PULSE 88; BMI 29.8
== END 2024-12-04 13:55 | disposition home or self-care (01) ==
PROVIDERS: PCP Internal Medicine; Visit Provider Nurse Practitioner Family
DX: R06.02 Shortness of breath (principal); I42.8 Other cardiomyopathies; Z98.890 Other specified postprocedural states; Z95.0 Presence of cardiac pacemaker; I48.0 Paroxysmal atrial fibrillation; Z87.891 Personal history of nicotine dependence; J44.9 Chronic obstructive pulmonary disease, unspecified
CPT/HCPCS: 99214; G2211

== ENCOUNTER → 2024-12-04 12:28 | Outpatient (BNVA) | payer MEDICARE, SELFPAY | PROVIDERS: PCP Internal Medicine; Visit Provider Nurse Practitioner Family | DX: I49.8 Other specified cardiac arrhythmias (principal); I42.8 Other cardiomyopathies; I48.0 Paroxysmal atrial fibrillation; I10 Essential (primary) hypertension; J44.9 Chronic obstructive pulmonary disease, unspecified; R06.02 Shortness of breath; Z87.891 Personal history of nicotine dependence; Z99.81 Dependence on supplemental oxygen; Z95.0 Presence of cardiac pacemaker; Z98.890 Other specified postprocedural states | CPT/HCPCS: 93280; 99212 ==

== ENCOUNTER 2024-12-08 13:11 | Outpatient (AMB) | payer MEDICARE, SELFPAY ==
[2024-12-08 13:19] LABS: Prothrombin Time Whole Bld POC 27.6 sec (11.1-13.5); ~PT, ~INR - Anti Coag Clinic 2.3 (0.9-1.1)
--- NOTE | 2024-12-08 13:22 | MHC.OFFVISCO ---
Intake Intake Visit Reasons: Anticoagulation Allergies head and shoulders shampoo Adverse Reaction (Severe, Uncoded 12/08/24 13:12) burn Medication List - Last Reconciled 12/08/24 by Jerilyn Streeter RN albuterol sulfate 90 mcg/actuation 2 puffs inhalation Q6H PRN budesonide-formoterol 80-4.5 mcg/actuation 2 puffs inhalation BID 90 days ipratropium-albuterol 0.5 mg-3 mg(2.5 mg base)/3 mL 3 mL inhalation QID lisinopril 2.5 mg (1/2 x 5 mg) PO DAILY metoprolol succinate ER 100 mg (2 x 50 mg) PO DAILY multivitamin (Daily Multi-Vitamin tablet) 1 tab PO DAILY nebulizers To use every 4 hours omeprazole 40 mg PO BID 90 days Oxygen Home Use As directed spironolactone 12.5 mg (1/2 x 25 mg) PO DAILY warfarin 2.5 mg See Protocol PO TUTH warfarin 5 mg See Protocol PO SUMOWEFRSA warfarin See Protocol Take 5mg orally daily, with dose adjustments as per Anticoagulation Services 90 days Nursing Note Pt to [facility] with use of wheeled walker and wearing portable O2. INR: 2.3 in therapeutic range of 2-3 Medications and supplements reviewed No changes in health, diet, medications, or supplements, Denies any signs and symptoms of bleeding or bruising or clotting. Bleeding, bruising, clotting discussed Nutritional guidance given Dose: 5mg X 4 days and 2.5mg X 3 days F/U INR: 4 weeks Patient verbalizes understanding of instructions given Anti-Coag Initial Assessment Social Hx Patient Tobacco Use Status: Current someday Tobacco user Tobacco use type: Cigarette Smoking packs per day: 0.5 alcohol intake: current Alcohol intake frequency: other Cardiovascular Hx: HTN, CHF, Arrhythmias and Other Lung Disease HX: COPD and Other Blood Disorder Hx: Anemia GI Hx: Diverticulosis Neurological Hx: Other Cancer HX: No Psych. Illness/Depression: No Coding Level of Care Code Est Patient Level 1 Diagnoses Current use of anticoagulant therapy Z79.01 Results AMB INR Fingerstick AMB INR Fingerstick 2.3 Last Edit by Jerilyn Streeter RN on 12/08/24 13:22 interface delay Assessment & Plan Assessment & Plan (1) Current use of anticoagulant therapy: Code(s): Z79.01 - senior living (current) use of anticoagulants
--- OUTSIDE RECORDS SUMMARY | 2024-12-08 13:43 | XMS_ITS | Clinical Summary ---
Author Organization [facility] Address [address] [place] [address] Care Team Providers Care Mechanical Design Drafter Name Role Phone Charbel Poe MD Primary Care Provider [phone] Surgical History Surgery Date Site/Laterality Comments OTHER SURGICAL HISTORY PROCEDURE: DENIES PREVIOUS SURGERY COLONOSCOPY 07/09/2009 PROCEDURE: HISTORICAL COLONOSCOPY; COMMENT: [facility]. Diverticulosis. UPPER GASTROINTESTINAL ENDOSCOPY 07/09/2009 PROCEDURE: [place] UPPER GI ENDOSCOPY PERFORMED; COMMENT: [facility], GI bleed. No significant abnormalities. Medical History Medical History Date Comments Iron deficiency anemia 07/16/2009 DX:Iron d eficiency anemia Tobacco abuse 07/16/2009 DX:Tobacco abuse ; COMMENT: Has tried Wellbutrin, Chantix, hypnotherapy, nicotine patch and gum 10/22 - [employer] unable to contact after 5 attempts Diverticulosis, sigmoid 07/16/2009 DX:Diver ticulosis, sigmoid; COMMENT: Lower GI bleed 06/23. Admitted to [facility]. Colonoscopy 06/23. 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 Stack Severe obstructive [...] Documents on File Type Date Recorded Patient Segment Assembler Expl anation Health Care Decision (hx) 02/08/2020 AD PAZ DIRECTIVE Health Care Decision (hx) 02/08/2020 AD PAZ DIRECTIVE Health Care Decision (hx) 02/08/2020 AD PAZ DIRECTIVE Health Care Decision (hx) 02/08/2020 AD PAZ DIRECTIVE Health Care Decision (hx) 02/08/2020 AD PAZ DIRECTIVE Care Teams Mechanical Design Drafter Relationship Specialty Start Date End Date Charbel Poe MD [address] [place] [address] [address] [place] [address] PCP - General Internal Medicine 02/21/21
== END 2024-12-08 13:32 | disposition home or self-care (01) ==
LOC: HO.ACS 13:11
PROVIDERS: PCP Internal Medicine; Visit Provider Internal Medicine Medical Oncology
DX: Z79.01 Long term (current) use of anticoagulants (principal)

== ENCOUNTER → 2024-12-08 13:11 | Outpatient (BNVA) | payer MEDICARE, SELFPAY | PROVIDERS: PCP Internal Medicine; Visit Provider Internal Medicine Medical Oncology | DX: Z79.01 Long term (current) use of anticoagulants (principal) | CPT/HCPCS: 85610; 99211 ==

== ENCOUNTER → 2025-01-09 23:59 | Outpatient (BNV) | payer MEDICARE, SELFPAY ==
--- NOTE | 2025-01-20 16:36 | A.OFFVIS_ITS ---
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 Mother No problems noted. Brother Esophageal cancer Social History Household Members: None Housing: Condominium Do you presently have visiting nurse or other home services: No Alcohol intake: current Alcohol intake frequency: other Comment: no telesitter available at this time Patient Tobacco Use Status: Current someday Tobacco user Tobacco use type: Cigarette Cigarette Packs Per Day: 0.5 Cigarettes Per Day: 10 Years Smoked: (onset 18yo, 1-1.5ppd x 53yrs, 65pyh - now 1cig/day) e-Cigarette/Vaping Use: Never Used Second Hand Smoke Exposure: Yes Advance Directives Date on File: 07/01/20 service: No Current occupational status: retired Current occupation: RETIRED Current occupational exposures/hazards: No Cognitive needs: Yes (walker) Hearing needs: No Vision needs: No Office Procedures Cardiac Device Check Cardiac Device Check Details: Date of service- 09/14/2024 ; Battery life 60%; normal lead parameters; AP 2%; BUSINESS PROCESS SPECIALIST 99%; no significant arrhythmias. Overall normal device function. [id number] Cardiac Device Interrogation, pacemaker Procedure code (CPT) selection complete Assessment & Plan Assessment & Plan (1) Pacemaker: Onset Date: ~06/2020 Comment: (Biotronik DCPP - placed 07/01/2020) Code(s): Z95.0 - Presence of cardiac pacemaker Category: Medical (2) Complete heart block: Code(s): I44.2 - Atrioventricular block, complete Category: Medical (3) Nonischemic cardiomyopathy: Comment: 02/04/2023, LAD and left circumflex with minimal luminal irregularities, left main and RCA normal Code(s): I42.8 - Other cardiomyopathies Category: Medical Plan x Coding Level of Care Code Procedure Only Diagnoses Pacemaker Z95.0 Complete heart block I44.2 Nonischemic cardiomyopathy I42.8 CPT Codes Cardiac Device Check - Cardiac Device 12: [id number] Cardiac Device Interrogation, pacemaker ([id number])
== END ==
PROVIDERS: PCP Internal Medicine; Visit Provider Internal Medicine
DX: I44.2 Atrioventricular block, complete (principal); Z95.0 Presence of cardiac pacemaker; I42.8 Other cardiomyopathies
CPT/HCPCS: 93294

== ENCOUNTER 2025-01-15 12:45 | Outpatient (REF) | payer MEDICARE, SELFPAY ==
[2025-01-15 13:02] LABS: MANUAL DIFF FLAG NO
--- OUTSIDE RECORDS SUMMARY | 2025-01-15 13:06 | XMS_ITS | Encounter Summary ---
Author Organization [facility] Address [address] [place] [address] Care Team Providers Care Register Of Wills Name Role Phone Sudarshan Deluca Primary Care Provider Unav ailable Shin Núñez MD Primary Care Provider Azalia Esposito MD Primary Care Provider Unavailable Azalia Esposito MD Primary Care Provider Unavailable Shaw Cervantes MD Unavailable [phone] Ryan Jenkins MD Unavailable [phone] Rosalva Stern PA-C Unavailable Charbel Poe Primary Care Provider Unavailabl e Encounter Details Date Type Department Care Team Description 07/09/2009 Hospital Medical Records [address] [place] [id number] Jason Recinos MD Social History Tobacco Use [...] on filedocumented in this encounter Care Teams Register Of Wills Relationship Specialty Start Date End Date Sudarshan Deluca PCP - General 05/06/10 12/30/14 Shin Núñez MD [address] [place] [address] PCP - General 07/08/09 05/05/10 Timmy-Azalia Recinos MD [address] [place] [address] PCP - General Internal Medicine 12/02/15 02/20/21 Azalia Esposito MD [address] [place] [address] PCP - General 12/31/14 12/01/15 Charbel Poe [address] [place] [address] PCP - General Internal Medicine 02/21/21 Shaw Cervantes MD [address] [place] [address] Specialist Cardiovascular Disease 02/18/21 Ryan Jenkins MD [address] [place] [address] Specialist Cardiology 02/18/21 Rosalva Stern PA-C [address] [place] [address] Specialist Cardiology 02/18/21 documented as of this encounter
--- OUTSIDE RECORDS SUMMARY | 2025-01-15 13:06 | XMS_ITS | Clinical Summary ---
Author Organization [facility] Address [address] [place] [address] Care Team Providers Care Mechanical Engineer Name Role Phone Charbel Poe MD Primary Care Provider [phone] Surgical History Surgery Date Site/Laterality Comments OTHER SURGICAL HISTORY PROCEDURE: DENIES PREVIOUS SURGERY COLONOSCOPY 07/09/2009 PROCEDURE: HISTORICAL COLONOSCOPY; COMMENT: [facility]. Diverticulosis. UPPER GASTROINTESTINAL ENDOSCOPY 07/09/2009 PROCEDURE: [place] UPPER GI ENDOSCOPY PERFORMED; COMMENT: [facility], GI bleed. No significant abnormalities. Medical [...] eye COPD (chronic obstructive pu lmonary disease) ([facility] V24, [facility] V28) 07/16/2009 DX:COPD (chronic o bstructive pulmonary disease) ([facility]); COMMENT: Dr. Stack Severe obstructive disease [...] Cancer Screening: Stool Based Tests (FOBT/FIT) 05/17/2022 Falls Risk Assessment 05/17/2022 Hepatitis C Screening 05/17/2022 Social Influencers of Health Screening 05/17/2022 Hypertension/CHF/CAD Annual BMP Blood Test 05/28/2022 COVID-19 Vaccine ( season) 2024 Depression Screening 06/14/2024 Influenza Vaccine (#1) 2025 9, 03/14/2018, 04/29/2016, Additional history exists Pneumococcal [...] Documents on File Type Date Recorded Patient Continuing Education Dean Expl anation Health Care Decision (hx) 02/08/2020 AD PAZ DIRECTIVE Health Care Decision (hx) 02/08/2020 AD PAZ DIRECTIVE Health Care Decision (hx) 02/08/2020 AD PAZ DIRECTIVE Health Care Decision (hx) 02/08/2020 AD PAZ DIRECTIVE Health Care Decision (hx) 02/08/2020 AD PAZ DIRECTIVE Care Teams Mechanical Engineer Relationship Specialty Start Date End Date Charbel Poe MD [address] [place] [address] [address] [place] [address] PCP - General Internal Medicine 02/21/21
[2025-01-15 13:52] LABS: Hematocrit 36.2 % (42.0-52.0); Hemoglobin 10.2 g/dl (14.0-18.0); Imm Gran Abs Auto 0.07 X10*3/uL (0.00-0.03); Imm Gran Pct Auto 0.6 % (0.0-0.4); Lymphocytes Absolute Auto 2.4 X10*3/uL (1.2-4.9); Mean Corpuscular HGB Conc 28.2 g/dl (31.0-36.0); Mean Corpuscular Hemoglobin 24.3 pg (27.0-33.0); Mean Corpuscular Volume 86.4 fL (80.0-98.0); NRBC Abs Auto 0.000 X10*3/uL (0.0-0.012); NRBC Pct Auto 0.0 /100WBC (0.0-0.2); Platelet Count 228 X10*3/uL (160-400); Red Blood Count 4.19 X10*6/uL (4.60-5.80); White Blood Count 11.7 X10*3/uL (4.8-10.8)
[2025-01-15 14:18] LABS: Appearance Urine Clear; Glucose Urine UA Negative (Negative); PH 8.0 (5.0-9.0); Specific Gravity - Urine 1.025 (1.005-1.025); UMIC TRIGGER UACC YES
[2025-01-15 14:28] LABS: B Type Natriuretic Peptide 45 pg/mL (<100)
[2025-01-15 14:29] LABS: UACC Culture Trigger YES
[2025-01-15 14:35] LABS: Alanine Aminotransferase 11 U/L (0-40); Albumin Level 4.4 g/dL (3.5-5.0); Alkaline Phosphatase 96 U/L (39-117); Anion Gap 13 (12-20); Aspartate Amino Transferase 20 U/L (5-37); Blood Urea Nitrogen 18 mg/dL (9-16); Calcium 9.2 mg/dL (8.4-10.2); Carbon Dioxide 35 mmol/L (22-29); Chloride 98 mmol/L (96-108); Cholesterol 228 mg/dL (<200); Estimated Glomerular Filt Rate > 60; HDL Cholesterol 39 mg/dL (>40); Potassium 4.3 mmol/L (3.3-5.1); Sodium 142 mmol/L (135-145); Total Protein 7.3 g/dL (6.5-8.0); Triglycerides 227 mg/dL (<150)
== END 2025-01-15 12:46 | disposition home or self-care (01) ==
LOC: HO.LAB 12:45
PROVIDERS: PCP Internal Medicine; Visit Provider Internal Medicine
DX: I50.9 Heart failure, unspecified (principal); E78.00 Pure hypercholesterolemia, unspecified; E55.9 Vitamin D deficiency, unspecified; D64.9 Anemia, unspecified; R30.0 Dysuria
CPT/HCPCS: 36415; 80053; 80061; 81001; 82306; 83880; 84443; 85025; 85610; 87086; 99211

== ENCOUNTER 2025-01-15 13:09 | Outpatient (AMB) | payer MEDICARE, SELFPAY ==
[2025-01-15 13:44] LABS: Prothrombin Time Whole Bld POC 17.4 sec (11.1-13.5); ~PT, ~INR - Anti Coag Clinic 1.4 (0.9-1.1)
--- NOTE | 2025-01-15 13:52 | MHC.OFFVISCO ---
Intake Intake Visit Reasons: Anticoagulation Allergies head and shoulders shampoo Adverse Reaction (Severe, Uncoded 01/15/25 13:39) burn Medication List - Last Reconciled 01/15/25 by Jerilyn Streeter RN albuterol sulfate 90 mcg/actuation 2 puffs inhalation Q6H PRN budesonide-formoterol 80-4.5 mcg/actuation 2 puffs inhalation BID 90 days ipratropium-albuterol 0.5 mg-3 mg(2.5 mg base)/3 mL 3 mL inhalation QID lisinopril 2.5 mg (1/2 x 5 mg) PO DAILY metoprolol succinate ER 100 mg (2 x 50 mg) PO DAILY multivitamin (Daily Multi-Vitamin tablet) 1 tab PO DAILY nebulizers To use every 4 hours omeprazole 40 mg PO BID 90 days Oxygen Home Use As directed spironolactone 12.5 mg (1/2 x 25 mg) PO DAILY warfarin 2.5 mg See Protocol PO TUTH warfarin 5 mg See Protocol PO SUMOWEFRSA warfarin See Protocol Take 5mg orally daily, with dose adjustments as per Anticoagulation Services 90 days Nursing Note INR: 1.4 out of therapeutic range of 2-3 Medications and supplements reviewed: no changes Pt denies missed dose. Patient status: usual health Diet: no changes Denies any signs and symptoms of bleeding or clotting or unusual bruising Bleeding, bruising, clotting discussed Nutritional guidance given: to avoid greens next 3 days and focus on foods that raise the INR. Food list reviewed with pt. Dose: increase this week's total of warfarin by 5mg. See Dose Management. F/U INR Date: Pt refused to come back before 3 weeks. He is on oxygen and gets short of breath with exertion. He has an appt with pcp at [facility] on 02/05/25 so will come to [facility] on that date.?? Patient verbalizing understanding of instructions given. T/C to pcp to report critical value. Spoke to Nicolle. INR of 1.4 with dosing plan and next retest date reported. Anti-Coag Initial Assessment Social Hx Patient Tobacco Use Status: Current someday Tobacco user Tobacco use type: Cigarette Smoking packs per day: 0.5 alcohol intake: current Alcohol intake frequency: other Cardiovascular Hx: HTN, CHF, Arrhythmias and Other Lung Disease HX: COPD and Other Blood Disorder Hx: Anemia GI Hx: Diverticulosis Neurological Hx: Other Cancer HX: No Psych. Illness/Depression: No Coding Level of Care Code Est Patient Level 1 Diagnoses Current use of anticoagulant therapy Z79.01 Results AMB INR Fingerstick AMB INR Fingerstick 1.4 Last Edit by Jerilyn Streeter RN on 01/15/25 13:43 interface delay Assessment & Plan Assessment & Plan (1) Current use of anticoagulant therapy: Code(s): Z79.01 - senior [employer] d[employer] (current) use of anticoagulants
== END 2025-01-15 14:02 | disposition home or self-care (01) ==
LOC: HO.ACS 13:09
PROVIDERS: PCP Internal Medicine; Visit Provider Internal Medicine Medical Oncology
DX: Z79.01 Long term (current) use of anticoagulants (principal)

== ENCOUNTER 2025-02-05 13:05 | Outpatient (AMB) | payer MEDICARE, SELFPAY ==
--- NOTE | 2025-02-05 13:37 | MHC.OFFVISCO ---
Intake Intake Visit Reasons: Anticoagulation Allergies head and shoulders shampoo Adverse Reaction (Severe, Uncoded 02/05/25 13:23) burn Medication List - Last Reconciled 02/05/25 by Alem Baumann RN albuterol sulfate 90 mcg/actuation 2 puffs inhalation Q6H PRN budesonide-formoterol 80-4.5 mcg/actuation 2 puffs inhalation BID 90 days ipratropium-albuterol 0.5 mg-3 mg(2.5 mg base)/3 mL 3 mL inhalation QID lisinopril 2.5 mg (1/2 x 5 mg) PO DAILY metoprolol succinate ER 100 mg (2 x 50 mg) PO DAILY multivitamin (Daily Multi-Vitamin tablet) 1 tab PO DAILY nebulizers To use every 4 hours omeprazole 40 mg PO BID 90 days Oxygen Home Use As directed spironolactone 12.5 mg (1/2 x 25 mg) PO DAILY warfarin See Protocol Take 5mg orally daily, with dose adjustments as per Anticoagulation Services 90 days Nursing Note INR 0.9 out of therapeutic range R/T BEING OUT OF WARFARIN DUE TO PROVIDER TRANSITION . His PCP retired and he was unable to refill his meds - seeing new PCP today Medications and supplements reviewed Patient status: denies any new or increase sob- wears O2, denies any stroke or clotting symptoms Medications or supplements: just took 1 dose of warfarin in [address] Diet: has meals on wheeels Denies any signs and symptoms of bleeding or clotting or unusual bruising Bleeding, bruising, clotting discussed Nutritional guidance given: avoid all greens x 3 days, eat foods to help raise the INR today Dose: dose 5mg today and tomorrow then resume 5mg x 4 days/ 2.5mg mwf F/U INR Date: refused sooner date 02/15/2025 ? Patient verbalizing understanding of instructions given. Seeing PCP today - will forward this note to PCP Anti-Coag Initial Assessment Social Hx Patient Tobacco Use Status: Current someday Tobacco user Tobacco use type: Cigarette Smoking packs per day: 0.5 alcohol intake: current Alcohol intake frequency: other Cardiovascular Hx: HTN, CHF, Arrhythmias and Other Lung Disease HX: COPD and Other Blood Disorder Hx: Anemia GI Hx: Diverticulosis Neurological Hx: Other Cancer HX: No Psych. Illness/Depression: No Coding Level of Care Code Est Patient Level 1 Diagnoses Current use of anticoagulant therapy Z79.01 Assessment & Plan Assessment & Plan (1) Current use of anticoagulant therapy: Code(s): Z79.01 - assisted (current) use of anticoagulants
[2025-02-05 13:39] LABS: Prothrombin Time Whole Bld POC 11.3 sec (11.1-13.5); ~PT, ~INR - Anti Coag Clinic 0.9 (0.9-1.1)
--- OUTSIDE RECORDS SUMMARY | 2025-02-05 14:23 | XMS_ITS | Clinical Summary ---
Author Organization [facility] Address [address] [place] [address] Care Team Providers Care High Speed Printer Operator Name Role Phone Charbel Poe MD Primary Care Provider [phone] Surgical History Surgery Date Site/Laterality Comments OTHER SURGICAL HISTORY PROCEDURE: DENIES PREVIOUS SURGERY COLONOSCOPY 07/09/2009 PROCEDURE: HISTORICAL COLONOSCOPY; COMMENT: [facility]. Diverticulosis. UPPER GASTROINTESTINAL ENDOSCOPY 07/09/2009 PROCEDURE: [place] UPPER GI ENDOSCOPY PERFORMED; COMMENT: [facility], GI bleed. No significant abnormalities. Medical History Medical History Date Comments Iron deficiency anemia 07/16/2009 DX:Iron d eficiency anemia Tobacco abuse 07/16/2009 DX:Tobacco abuse ; COMMENT: Has tried Wellbutrin, Chantix, hypnotherapy, nicotine patch and gum 10/22 - [employer] unable to contact after 5 attempts Diverticulosis, sigmoid 07/16/2009 DX:Diver ticulosis, sigmoid; COMMENT: Lower GI bleed 06/23. Admitted to [facility]. Colonoscopy 06/23. 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 Stack Severe obstructive [...] Documents on File Type Date Recorded Patient Market Researcher Expl anation Health Care Decision (hx) 02/08/2020 AD PAZ DIRECTIVE Health Care Decision (hx) 02/08/2020 AD PAZ DIRECTIVE Health Care Decision (hx) 02/08/2020 AD PAZ DIRECTIVE Health Care Decision (hx) 02/08/2020 AD PAZ DIRECTIVE Health Care Decision (hx) 02/08/2020 AD PAZ DIRECTIVE Care Teams High Speed Printer Operator Relationship Specialty Start Date End Date Charbel Poe MD [address] [place] [address] [address] [place] [address] PCP - General Internal Medicine 02/21/21
--- OUTSIDE RECORDS SUMMARY | 2025-02-05 14:23 | XMS_ITS | Encounter Summary ---
Author Organization [facility] Address [address] [place] [address] Care Team Providers Care Senior Environmental Engineer Name Role Phone Azalia sEposito MD Primary Care Provider Unavailable Azalia Esposito MD Primary Care Provider Unavailable Shaw Cervantes MD Unavailable [phone] Ryan Jenkins MD Unavailable [phone] Rosalva Stern PA-C Unavailable Charbel Poe Primary Care Provider Unavailabl e Encounter Details Date Type Department Care Team Description 11/13/2015 Australian Rules Footballer Report Medical Records [address] [place] [id number] Abstract, Provider Social History Tobacco Use Types [...] filedocumented in this encounter Care Teams Senior Environmental Engineer Relationship Specialty Start Date End Date Azalia Esposito MD PCP - General Internal Medicine 12/02/1502/20/21 Azalia Esposito MD PCP - General 12/31/1411/30 Charbel Poe [address] [place] [address] PCP - General Internal Medicine 02/21/21 Shaw Cervantes MD [address] [place] [address] Specialist Cardiovascular Disease 02/18/21 Ryan Jenkins MD [address] [place] [address] Specialist Cardiology 02/18/21 Rosalva Stern PA-C [address] [place] [address] Specialist Cardiology 02/18/21 documented as of this encounter
--- OUTSIDE RECORDS SUMMARY | 2025-02-05 14:23 | XMS_ITS | Encounter Summary ---
Author Organization [facility] Address [address] [place] [address] Care Team Providers Care Pipe Or Steam Fitter Furnace Installer Name Role Phone Azalia Esposito MD Primary Care Provider Unavailable Azalia Esposito MD Primary Care Provider Unavailable Shaw Cervantes MD Unavailable [phone] Ryan Jenkins MD Unavailable [phone] Rosalva Stern PA-C Unavailable Charbel Poe Primary Care Provider Unavailabl e Encounter Details Date Type Department Care Team Description 07/18/2015 Cmm Inspector Report Medical Records [address] [place] [id number] [place] [address] Social History Tobacco Use Types Packs/Day Years [...] on filedocumented in this encounter Care Teams Pipe Or Steam Fitter Furnace Installer Relationship Specialty Start Date End Date Azalia Esposito MD PCP - General Internal Medicine 12/02/1502/20/21 Azalia Esposito MD PCP - General 12/31/1411/30 Charbel Poe [address] [place] [address] PCP - General Internal Medicine 02/21/21 Shaw Cervantes MD [address] [place] [address] Specialist Cardiovascular Disease 02/18/21 Ryan Jenkins MD [address] [place] [address] Specialist Cardiology 02/18/21 oRsalva Stern PA-C [address] [place] [address] Specialist Cardiology 02/18/21 documented as of this encounter
--- OUTSIDE RECORDS SUMMARY | 2025-02-05 14:23 | XMS_ITS | Encounter Summary ---
Author Organization [facility] Address [address] [place] [address] Care Team Providers Care Information Consultant Name Role Phone Sudarshan Deluca Primary Care Provider Unav ailable Shin Núñez MD Primary Care Provider [phone] Azalia Esposito MD Primary Care Provider Unavailable Azalia Esposito MD Primary Care Provider Unavailable Shaw Cervantes MD Unavailable [phone] Ryan Jenkins MD Unavailable [phone] Rosalva Stern PA-C Unavailable Charbel Poe Primary Care Provider Unavailabl e Encounter Details Date Type Department Care Team Description 07/09/2009 Hospital Medical Records [address] [place] [address] Jason Recinos MD Social History Tobacco Use [...] on filedocumented in this encounter Care Teams Information Consultant Relationship Specialty Start Date End Date Sudarshan Deluca PCP - General 05/06/10 12/30/14 Shin Núñez MD [address] [place] [address] PCP - General 07/08/09 05/05/10 Timmy-Azalia Recinos MD [address] [place] [address] PCP - General Internal Medicine 12/02/15 02/20/21 Azalia Esposito MD [address] [place] [address] PCP - General 12/31/14 12/01/15 Charbel Poe [address] [place] [address] PCP - General Internal Medicine 02/21/21 Shaw Cervantes MD [address] [place] [address] Specialist Cardiovascular Disease 02/18/21 Ryan Jenkins MD [address] [place] [address] Specialist Cardiology 02/18/21 Rosalva Stern PA-C [address] [place] [address] Specialist Cardiology 02/18/21 documented as of this encounter
--- OUTSIDE RECORDS SUMMARY | 2025-02-05 14:23 | XMS_ITS | Encounter Summary ---
Author Organization [facility] Address [address] [place] [address] Care Team Providers Care Customer Insight Analyst Name Role Phone Azalia Esposito MD Primary Care Provider Unavailable Azalia Esposito MD Primary Care Provider Unavailable Shaw Cervantes MD Unavailable [phone] Ryan Jenkins MD Unavailable [phone] Rosalva Stern PA-C Unavailable Charbel Poe Primary Care Provider Unavailabl e Encounter Details Date Type Department Care Team Description 10/09/2015 [employer] Product Leadership Report Medical Records [address] [place] [address] Dept., [facility] Occupational & Pt Social History Tobacco [...] on filedocumented in this encounter Care Teams Customer Insight Analyst Relationship Specialty Start Date End Date Azalia Esposito MD PCP - General Internal Medicine 12/02/1502/20/21 Azalia Esposito MD PCP - General 12/31/1411/30 Charbel Poe [address] [place] [address] PCP - General Internal Medicine 02/21/21 Shaw Cervantes MD [address] [place] [address] Specialist Cardiovascular Disease 02/18/21 Ryan Jenkins MD [address] [place] [address] Specialist Cardiology 02/18/21 Rosalva Stern PA-C [address] [place] [address] Specialist Cardiology 02/18/21 documented as of this encounter
--- OUTSIDE RECORDS SUMMARY | 2025-02-05 14:23 | XMS_ITS | Encounter Summary ---
Author Organization [facility] Address [address] [place] [address] Care Team Providers Care Gaming Manager Name Role Phone Timmy-Azalia Recinos MD Primary Care Provider Unavailable Shaw Cervantes MD Unavailable [phone] Ryan Jenkins MD Unavailable [phone] Rosalva Stern PA-C Unavailable Charbel Poe Primary Care Provider Unavailabl e Encounter Details Date Type Department Care Team Description 01/14/2016 Sole Sewer Hand Report Medical Records [address] [place] [id number] [place] [address] Social History Tobacco Use Types Packs/Day Years [...] on filedocumented in this encounter Care Teams Gaming Manager Relationship Specialty Start Date End Date Azalia Esposito MD PCP - General Internal Medicine 12/02/1502/20/21 Charbel Poe [address] [address] PCP - General Internal Medicine 02/21/21 Shaw Cervantes MD [address] [place] [address] Specialist Cardiovascular Disease 02/18/21 Ryan Jenkins MD [address] [place] [address] Specialist Cardiology 02/18/21 Rosalva Stern PA-C [address] [place] [address] Specialist Cardiology 02/18/21 documented as of this encounter
--- OUTSIDE RECORDS SUMMARY | 2025-02-05 14:23 | XMS_ITS | Encounter Summary ---
Author Organization [facility] Address [address] [place] [address] Care Team Providers Care Temporary Staff Accountant Name Role Phone [place]-Azalia Recinos MD Primary Care Provider Unavailable Shaw Cervantes MD Unavailable [phone] Ryan Jenkins MD Unavailable [phone] Rosalva Stern PA-C Unavailable Charbel Poe Primary Care Provider Unavailabl e Reason for Visit * Reason Onset Date Comments EKG 09/25/2019 EKG Final Cardi Read Encounter Details Date Type Department Care Team Description 09/25/2019 Telephone Cardio PVC Med [address] [facility] [address] [place] [phone] Ynes Cevallos MD EKG (EKG Final Cardi [...] EKG FINAL CARDI READ Faxed EKG to [phone] documented in this encounter Plan of Treatment Not on file documented as of this encounter Visit Diagnoses Not on filedocumented in this encounter Care Teams Temporary Staff Accountant Relationship Specialty Start Date End Date [place]-Az[place] Recinos MD PCP - General Internal Medicine 12/02/1502/20/21 Charbel Poe 300 [facility] [address] [place] [address] PCP - General Internal Medicine 02/21/21 Shaw Cervantes MD [address] [place] [address] Specialist Cardiovascular Disease 02/18/21 Ryan Jenkins MD [address] [place] [address] Specialist Cardiology 02/18/21 Rosalva Stern PA-C 300 [facility] [address] [place] [address] Specialist Cardiology 02/18/21 documented as of this encounter
--- OUTSIDE RECORDS SUMMARY | 2025-02-05 14:23 | XMS_ITS | Encounter Summary ---
Author Organization [facility] Address [address] [place] [address] Care Team Providers Care Sandwich Hand Name Role Phone Sudarshan Deluca Primary Care Provider Unav ailable Shin Núñez MD Primary Care Provider [phone] Azalia Esposito MD Primary Care Provider Unavailable Azalia Esposito MD Primary Care Provider Unavailable Shaw Cervantes MD Unavailable [phone] Ryan Jenkins MD Unavailable [phone] Rosalva Stern PA-C Unavailable Charbel Poe Primary Care Provider Unavailabl e Encounter Details Date Type Department Care Team Description 07/08/2009 Hospital Medical Records [address] [place] [address] Salvador Boateng Social History Tobacco Use Types [...] on filedocumented in this encounter Care Teams Sandwich Hand Relationship Specialty Start Date End Date Sudarshan Deluca PCP - General 05/06/10 12/30/14 Shin Núñez MD [address] [place] [address] PCP - General 07/08/09 05/05/10 Timmy-Azalia Recinos MD [address] [place] [address] PCP - General Internal Medicine 12/02/15 02/20/21 Azalia Esposito MD [address] [place] [address] PCP - General 12/31/14 12/01/15 Charbel Poe [address] [place] [address] PCP - General Internal Medicine 02/21/21 Shaw Cervantes MD [address] [place] [address] Specialist Cardiovascular Disease 02/18/21 Ryan Jenkins MD [address] [place] [address] Specialist Cardiology 02/18/21 Rosalva Stern PA-C [address] [facility] [address] [place] [address] Specialist Cardiology 02/18/21 documented as of this encounter
--- OUTSIDE RECORDS SUMMARY | 2025-02-05 14:23 | XMS_ITS | Encounter Summary ---
Author Organization [facility] Address [address] [place] [address] Care Team Providers Care Assistant Business Manager Name Role Phone Azalia Esposito MD Primary Care Provider Unavailable Shaw Cervantes MD Unavailable [phone] Ryan Jenkins MD Unavailable [phone] Rosalva Stern PA-C Unavailable Charbel Poe Primary Care Provider Unavailabl e Reason for Visit * Reason Onset Date Comments Form 09/11/2019 [facility] 08/31/2019- Encounter Details Date Type Department Care Team Description 09/11/2019 Telephone Adult Medicine - [address] [address] Azalia Esposito MD Form ([facility] 08/31/2019-10/29/2019) Social History Tobacco Use Types Packs/Day [...] DATE RECEIVED:09/11/2019 AGENCY:Roxanna Lepe CERT DATES:08/30-10/29/2019 FAX NUMBER:[phone] LOCATION OF [facility]:Call center documented in this encounter Plan of [...] in remission Nondependent alcohol abuse, in remission halfway (current) use of inhaled steroids Dependence on supplemental oxygen terminal gauger (current) use of anticoagulants Long-term (current) use of anticoagulants documented in this encounter Care Teams Assistant Business Manager Relationship Specialty Start Date End Date [facility] Recinos MD PCP - General Internal Medicine 12/02/1502/20/21 Charbel Poe [address] [place] [address] PCP - General Internal Medicine 02/21/21 Shaw Cervantes MD [address] [place] [address] Specialist Cardiovascular Disease 02/18/21 Ryan Jenkins MD 300 [facility] [address] [place] [address] Specialist Cardiology 02/18/21 Rosalva Stern PA-C 300 [facility] [address] [place] [address] Specialist Cardiology 02/18/21 documented as of this encounter
--- OUTSIDE RECORDS SUMMARY | 2025-02-05 14:23 | XMS_ITS | Encounter Summary ---
Author Organization [facility] Address [address] [place] [address] Care Team Providers Care Surgical Garment Assembler Name Role Phone Azalia Esposito MD Primary Care Provider Unavailable Azalia Esposito MD Primary Care Provider Unavailable Shaw Cervantes MD Unavailable [phone] Ryan Jenkins MD Unavailable [phone] Rosalva Stern PA-C Unavailable Charbel Poe Primary Care Provider Unavailabl e Encounter Details Date Type Department Care Team Description 11/12/2015 Plastic Panel Installer Report Medical Records [address] [place] [address] Abstract, Provider Social History Tobacco Use Types [...] on filedocumented in this encounter Care Teams Surgical Garment Assembler Relationship Specialty Start Date End Date Azalia Esposito MD PCP - General Internal Medicine 12/02/1502/20/21 Azalia Esposito MD PCP - General 12/31/1411/30 Charbel Poe [address] [place] [address] PCP - General Internal Medicine 02/21/21 Shaw Cervantes MD [address] [place] [address] Specialist Cardiovascular Disease 02/18/21 Ryan Jenkins MD [address] [place] [address] Specialist Cardiology 02/18/21 Rosalva Stern PA-C [address] [place] [address] Specialist Cardiology 02/18/21 documented as of this encounter
--- OUTSIDE RECORDS SUMMARY | 2025-02-05 14:24 | XMS_ITS | Encounter Summary ---
Author Organization [facility] Address [address] [place] [address] Care Team Providers Care Supervisor Kosher Dietary Service Name Role Phone Shaw Cervantes MD Unavailable Ryan Jenkins MD Unavailable [phone] Rosalva Stern PA-C Unavailable Charbel Poe Primary Care Provider Unavailabl e Encounter Details Date Type Department Care Team Description 06/18/2023 Orders Only [facility] Thoracic Surgery [place] 299 [facility] [address] [place] [address] Agnieszka Zapata MD 299 [facility] [address] [place] [address] Pulmonary nodules (Primary Dx) Social History Tobacco [...] field documented in this encounter Care Teams Supervisor Kosher Dietary Service Relationship Specialty Start Date End Date Charbel Poe 300 [facility] [address] [place] [address] PCP - General Internal Medicine 02/21/21 Shaw Cervantes MD [address] [place] [address] Specialist Cardiovascular Disease 02/18/21 Ryan Jenkins MD [address] [place] [address] Specialist Cardiology 02/18/21 Rosalva Stern PA-C [address] [place] [address] Specialist Cardiology 02/18/21 documented as of this encounter
--- OUTSIDE RECORDS SUMMARY | 2025-02-05 14:24 | XMS_ITS | Encounter Summary ---
Author Organization [facility] Address [address] [place] [address] Care Team Providers Care International Trade Teacher Name Role Phone Timmy-Azalia Recinos MD Primary Care Provider Unavailable Shaw Cervantes MD Unavailable [phone] Ryan Jenkins MD Unavailable [phone] Rosalva Stern PA-C Unavailable Charbel Poe Primary Care Provider Unavailabl e Encounter Details Date Type Department Care Team Description 08/09/2019 [facility] Medical Records [address] [place] [address] Johan Barragan MD Social History Tobacco Use [...] filedocumented in this encounter Care Teams International Trade Teacher Relationship Specialty Start Date End Date Azalia Esposito MD PCP - General Internal Medicine 12/02/1502/20/21 Charbel Poe [address] [place] [address] PCP - General Internal Medicine 02/21/21 Shaw Cervantes MD Medical [facility] [address] [place], [place] [address] Specialist Cardiovascular Disease 02/18/21 Ryan Jenkins MD [address] [place] [address] Specialist Cardiology 02/18/21 Rosalva Stern PA-C [address] [place] [address] Specialist Cardiology 02/18/21 documented as of this encounter
--- OUTSIDE RECORDS SUMMARY | 2025-02-05 14:24 | XMS_ITS | Encounter Summary ---
Author Organization [facility] Address [address] [place] [address] Care Team Providers Care Neurology Specialist Name Role Phone Azalia Esposito MD Primary Care Provider Unavailable Shaw Cervantes MD Unavailable [phone] Ryan Jenkins MD Unavailable [phone] Rosalva Stern PA-C Unavailable Charbel Poe Primary Care Provider Unavailabl e Encounter Details Date Type Department Care Team Description 02/09/2017 Dev Ops Engineer Report Medical Records [address] [place] [address] Social History Tobacco Use Types Packs/Day Years [...] on filedocumented in this encounter Care Teams Neurology Specialist Relationship Specialty Start Date End Date Azalia Esposito MD PCP - General Internal Medicine 12/02/1502/20/21 Charbel Poe [address] [place] [address] PCP - General Internal Medicine 02/21/21 Shaw Cervantes MD [address] [place] [address] Specialist Cardiovascular Disease 02/18/21 Ryan Jenkins MD [address] [place] [address] Specialist Cardiology 02/18/21 Rosalva Stern PA-C [address] [place] [address] Specialist Cardiology 02/18/21 documented as of this encounter
--- OUTSIDE RECORDS SUMMARY | 2025-02-05 14:24 | XMS_ITS | Encounter Summary ---
Author Organization [facility] Address [address] [place] [address] Care Team Providers Care Firer Electric Locomotive Name Role Phone Timmy-Azalia Recinos MD Primary Care Provider Unavailable Shaw Cervantes MD Unavailable Ryan Jenkins MD Unavailable [phone] Rosalva Stern PA-C Unavailable Charbel Poe Primary Care Provider Unavailabl e Encounter Details Date Type Department Care Team Description 11/10/2019 [facility] Medical Records [address] [place] [address] Yasmeen Murrell Social History Tobacco Use Types [...] on filedocumented in this encounter Care Teams Firer Electric Locomotive Relationship Specialty Start Date End Date Azalia Esposito MD PCP - General Internal Medicine 12/02/1502/20/21 Charbel Poe [address] [place] [address] PCP - General Internal Medicine 02/21/21 Shaw Cervantes MD [address] [facility] [address] [place], [place] [address] Specialist Cardiovascular Disease 02/18/21 Ryan Jenkins MD [address] [place] [address] Specialist Cardiology 02/18/21 Rosalva Stern PA-C [address] [place] [address] Specialist Cardiology 02/18/21 documented as of this encounter
--- OUTSIDE RECORDS SUMMARY | 2025-02-05 14:24 | XMS_ITS | Encounter Summary ---
Author Organization [facility] Address [address] [place] [address] Care Team Providers Care Hat Maker Name Role Phone Shaw Cervantes MD Unavailable [phone] Ryan Jenkins MD Unavailable [phone] Rosalva Stern PA-C Unavailable Charbel Poe Primary Care Provider Unavailabl e Encounter Details Date Type Department Care Team Description 05/15/2022 Pond Tender Report Medical Records [address] [place] [address] Agnieszka Zapata MD [address] [place] [address] [address] [place] [address] Social History Tobacco Use Types Packs/Day Years [...] on filedocumented in this encounter Care Teams Hat Maker Relationship Specialty Start Date End Date Charbel Poe [address] [place] [address] PCP - General Internal Medicine 02/21/21 Shaw Cervantes MD 2 [facility] [address] [place] [address] Specialist Cardiovascular Disease 02/18/21 Ryan Jenkins MD [address] [place] [address] Specialist Cardiology 02/18/21 Rosalva Stern PA-C [address] [place] [address] Specialist Cardiology 02/18/21 documented as of this encounter
--- OUTSIDE RECORDS SUMMARY | 2025-02-05 14:24 | XMS_ITS | Encounter Summary ---
Author Organization [facility] Address [address] [place] [address] Care Team Providers Care Painter And Decorator Name Role Phone Azalia Esposito MD Primary Care Provider Unavailable Shaw Cervantes MD Unavailable [phone] Ryan Jenkins MD Unavailable [phone] Rosalva Stern PA-C Unavailable Charbel Poe Primary Care Provider Unavailabl e Encounter Details Date Type Department Care Team Description 10/26/2016 Ramp Service Employee Report Medical Records [address] [place] [address] Caron Gomez PA-C [address] [address] Social History Tobacco Use Types [...] on filedocumented in this encounter Care Teams Painter And Decorator Relationship Specialty Start Date End Date Azalia Esposito MD PCP - General Internal Medicine 12/02/1502/20/21 Charbel Poe [address] [place] [address] PCP - General Internal Medicine 02/21/21 Shaw Cervantes MD [address] [place] [address] Specialist Cardiovascular Disease 02/18/21 Ryan Jenkins MD [address] [place] [address] Specialist Cardiology 02/18/21 Rosalva Stern PA-C [address] [place] [address] Specialist Cardiology 02/18/21 documented as of this encounter
--- OUTSIDE RECORDS SUMMARY | 2025-02-05 14:24 | XMS_ITS | Encounter Summary ---
Author Organization [facility] Address [address] [place] [address] Care Team Providers Care Spindle Plumber Name Role Phone Timmy-Azalia Recinos MD Primary Care Provider Unavailable Shaw Cervantes MD Unavailable [phone] Ryan Jenkins MD Unavailable [phone] Rosalva Stern PA-C Unavailable Charbel Poe Primary Care Provider Unavailabl e Encounter Details Date Type Department Care Team Description 11/24/2018 Pharmacy Clerk Report Medical Records [address] [place] [id number] [place] [address] Social History Tobacco Use Types Packs/Day Years [...] Internal Medicine 12/02/1502/20/21 Charbel Poe [address] [address] PCP - General Internal Medicine 02/21/21 Shaw Cervantes MD [address] [place] [address] Specialist Cardiovascular Disease 02/18/21 Ryan Jenkins MD [address] [place] [address] Specialist Cardiology 02/18/21 Rosalva Stern PA-C [address] [place] [address] Specialist Cardiology 02/18/21 documented as of this encounter
--- OUTSIDE RECORDS SUMMARY | 2025-02-05 14:24 | XMS_ITS | Encounter Summary ---
Author Organization [facility] Address [address] [place] [address] Care Team Providers Care Account Executive Metalworking Name Role Phone Azalia Esposito MD Primary Care Provider Unavailable Azalia Esposito MD Primary Care Provider Unavailable Shaw Cervantes MD Unavailable [phone] Ryan Jenkins MD Unavailable [phone] Rosalva Stern PA-C Unavailable Charbel Poe Primary Care Provider Unavailabl e Encounter Details Date Type Department Care Team Description 12/31/2014 Orders Only Adult Medicine - [address] [address] Hari Cristobal PA-C [address] [place] [address] COPD (chronic obstructive pulmonary disease) (Primary Dx) [...] PM EDT COPD (chronic obstructive pulmonary disease) [place] NONINVASIVE EAR/PULSE OXIMETRY SINGLE DETER Routine 12/31/2014 6:35 PM EDT COPD (chronic obstructive pulmonary disease) [place] PRESSURIZED/NONPRESSURI ZED INHALATION TREATMENT Routine 12/31/2014 6:35 PM EDT COPD (chronic obstructive pulmonary disease) documented in this encounter Visit Diagnoses Diagnosis COPD (chronic obstructive pulmonary disease) (HCC)- Primary Chronic airway obstruction, not elsewhere classified documented in this encounter Care Teams Account Executive Metalworking Relationship Specialty Start Date End Date [place]-Azalia Recinos MD PCP - General Internal Medicine 12/02/1502/20/21 [place]-Azalia Recinos MD PCP - General 12/31/1411/30 Charbel Poe [address] [place] [address] PCP - General Internal Medicine 02/21/21 Shaw Cervantes MD [address] [place] [address] Specialist Cardiovascular Disease 02/18/21 Ryan Jenkins MD [address] [place] [address] Specialist Cardiology 02/18/21 Rosalva Stern PA-C [address] [place] [address] Specialist Cardiology 02/18/21 documented as of this encounter
--- OUTSIDE RECORDS SUMMARY | 2025-02-05 14:24 | XMS_ITS | Encounter Summary ---
Author Organization [facility] Address [address] [place] [address] Care Team Providers Care Cloth Brushing And Sueding Supervisor Name Role Phone Shaw Cervantes MD Unavailable Ryan Jenkins MD Unavailable Rosalva Stern PA-C Unavailable Charbel Poe Primary Care Provider Unavailabl e Encounter Details Date Type Department Care Team Description 12/18/2022 Ground Hand Report Medical Records [address] [place] [address] Agnieszka Zapata MD [address] [place] [address] [address] [place] [address] Social History Tobacco Use Types Packs/Day Years [...] filedocumented in this encounter Care Teams Cloth Brushing And Sueding Supervisor Relationship Specialty Start Date End Date Charbel Poe [address] [place] [address] PCP - General Internal Medicine 02/21/21 Shaw Cervantes MD 2 [facility] [address] [place] [address] Specialist Cardiovascular Disease 02/18/21 Ryan Jenkins MD [address] [place] [address] Specialist Cardiology 02/18/21 Rosalva Stern PA-C [address] [place] [address] Specialist Cardiology 02/18/21 documented as of this encounter
--- OUTSIDE RECORDS SUMMARY | 2025-02-05 14:24 | XMS_ITS | Encounter Summary ---
Author Organization [facility] Address [address] [place] [address] Care Team Providers Care Survey Technician Name Role Phone Timmy-Aazlia Recinos MD Primary Care Provider Unavailable Shaw Cervantes MD Unavailable [phone] Ryan Jenkins MD Unavailable [phone] Rosalva Stern PA-C Unavailable Charbel Poe Primary Care Provider Unavailabl e Encounter Details Date Type Department Care Team Description 08/25/2019 [facility] Medical Records [address] [place] [address] [place] Meijeremy [place] [address] [place] [address] Social History Tobacco Use Types Packs/Day Years [...] on filedocumented in this encounter Care Teams Survey Technician Relationship Specialty Start Date End Date Azalia Esposito MD PCP - General Internal Medicine 12/02/1502/20/21 Charbel Poe [address] [place] [address] PCP - General Internal Medicine 02/21/21 Shaw Cervantes MD [address] [place] [address] Specialist Cardiovascular Disease 02/18/21 Ryan Jenkins MD [address] [place] [address] Specialist Cardiology 02/18/21 Rosalva Stern PA-C [address] [place] [address] Specialist Cardiology 02/18/21 documented as of this encounter
--- OUTSIDE RECORDS SUMMARY | 2025-02-05 14:24 | XMS_ITS | Encounter Summary ---
Author Organization [facility] Address [address] [place] [address] Care Team Providers Care Steamblaster Name Role Phone [facility] Recinos MD Primary Care Provider Unavailable Shaw Cervantes MD Unavailable [phone] Ryan Jenkins MD Unavailable [phone] Rosalva Stern PA-C Unavailable Charbel Poe Primary Care Provider Unavailabl e Reason for Visit * Reason Onset Date Comments REFERRAL 08/31/2016 Gastro Encounter Details Date Type Department Care Team Description 08/31/2016 Telephone Gastroenterology - [address] [id number] Kirit Recio MD REFERRAL (Gastro) Social History [...] on filedocumented in this encounter Care Teams Steamblaster Relationship Specialty Start Date End Date [facility] Recinos MD PCP - General Internal Medicine 12/02/1502/20/21 Charbel Poe [address] [place] [address] PCP - General Internal Medicine 02/21/21 Shaw Cervantes MD [address] [place] [address] Specialist Cardiovascular Disease 02/18/21 Ryan Jenkins MD [address] [place] [address] Specialist Cardiology 02/18/21 Rosalva Stern PA-C [address] [place] [address] Specialist Cardiology 02/18/21 documented as of this encounter
--- OUTSIDE RECORDS SUMMARY | 2025-02-05 14:24 | XMS_ITS | Clinical Summary ---
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 Admitted to [facility]. Colonoscopy 06/23. Resolved Problems Problem Noted [...] 86 02/12/2020 10:11 AM EDT Temperature 36.6 C (97.8 F) 02/12/2020 10:11 AM EDT Respiratory Rate 20 08/24/2019 10:32 AM EDT [...] 02/12/2020, 05/2019, 04/25/2019, Additional history exists INFLUENZA (#1) 2025 04/25/2019, 06/2017, 04/29/2016, Additional history exists HEPATITIS C SCREENING Completed 09/07/2012 ABDOMINAL AORTIC ANEURYSM (AAA) SCREENING Addressed 09/13/2017 (Exception) Overridden with t he intention of not completing the topic PNEUMOCOCCAL VACCINE Completed 09/13/2018, 09/13/2017, 05/14/2011 Care Teams Scrubber Operator Relationship Specialty Start Date End Date Charbel Poe [address] [place] [address] PCP - General Internal Medicine 02/21/21 Shaw Cervantes MD [address] [place] [address] Specialist Cardiovascular Disease 02/18/21 Ryan Jenkins MD [address] [place] [address] Specialist Cardiology 02/18/21 Rosalva Stern PA-C [address] [place] [address] Specialist Cardiology 02/18/21
--- OUTSIDE RECORDS SUMMARY | 2025-02-05 14:24 | XMS_ITS | Encounter Summary ---
Author Organization [facility] Address [address] [place] [address] Care Team Providers Care Global Program Manager Name Role Phone Azalia Esposito MD Primary Care Provider Unavailable Shaw Cervantes MD Unavailable [phone] Ryan Jenkins MD Unavailable [phone] Rosalva Stern PA-C Unavailable Charbel Poe Primary Care Provider Unavailabl e Reason for Referral * EXTERNAL (Routine) - Authorized/Booked Specialty Diagnoses / Procedures Referred By Contmima dumont Referred To Contact Ophthalmology Procedures REFERRAL TO EXTERNAL OPHTHALMOLOGY Azalia Esposito MD [address] [place] [address] [facility] [address] [place] [address] Referral ID Status Reason Start Date Expiration Date V isits Requested Visits Authorized SEE NOTE Authorized/B ooked 09/26/2017 12/27/2017 1 1 Reason for Visit * Reason Onset Date Comments Stained Glass Window Designer Feedback 09/17/2017 Encounter Details Date Type Department Care Team Description 09/17/2017 Telephone Adult Medicine - [place] [address] [place] [address] Azalia Esposito MD Stained Glass Window Designer Feedback Social History Tobacco Use Types Packs/Day [...] 2:39 PM EDT Spoke to optomology in [place] they confirmed that Dr. Warner would have to have an outside department for optomolgy do this. * Telephone Encounter - Leonardo Coleman M.A. - 09/22/2017 11:17 AM EDT Called optomology in [place] BSR put message in with Dr. Warner's [...] optometry? Should he be seen by an audio/visual operator or do you need patient to come [...] referral needs to start: HERNANDEZ Esposito Payor: SRIDHARGA/ FFS / Plan: [facility] MDCR-ADV HMO $20/$40 / Product Type: MEDICARE [id number] documented in this encounter Plan of Treatment Not on file documented as of this encounter Visit Diagnoses Not on filedocumented in this encounter Care Teams Global Program Manager Relationship Specialty Start Date End Date Azalia Esposito MD PCP - General Internal Medicine 12/02/1502/20/21 Charbel Poe [address] [address] PCP - General Internal Medicine 02/21/21 Shaw Cervantes MD [address] [place] [address] Specialist Cardiovascular Disease 02/18/21 Ryan Jenkins MD 300 [facility] [address] [place] [address] Specialist Cardiology 02/18/21 Rosalva Stern PA-C [address] [facility] [address] [place] [address] Specialist Cardiology 02/18/21 documented as of this encounter
--- OUTSIDE RECORDS SUMMARY | 2025-02-05 14:24 | XMS_ITS | Encounter Summary ---
Author Organization [facility] Address [address] [place] [address] Care Team Providers Care Clinical Staff Anesthesiologist Name Role Phone Timmy-Azalia Recinos MD Primary Care Provider Unavailable Shaw Cervantes MD Unavailable [phone] Ryan Jenkins MD Unavailable [phone] Rosalva Stern PA-C Unavailable Charbel Poe Primary Care Provider Unavailabl e Encounter Details Date Type Department Care Team Description 10/05/2019 Cleaning Handyman Report Medical Records [address] [place] [address] Shaw Cervantes MD [address] [place] [address] Social History Tobacco Use Types Packs/Day Years [...] filedocumented in this encounter Care Teams Clinical Staff Anesthesiologist Relationship Specialty Start Date End Date Azalia Esposito MD PCP - General Internal Medicine 12/02/1502/20/21 Charbel Poe [address] [place] [address] PCP - General Internal Medicine 02/21/21 Shaw Cervantes MD [address] [place] [address] Specialist Cardiovascular Disease 02/18/21 Ryan Jenkins MD [address] [place] [address] Specialist Cardiology 02/18/21 Roaslva Stern PA-C [address] [place] [address] Specialist Cardiology 02/18/21 documented as of this encounter
--- OUTSIDE RECORDS SUMMARY | 2025-02-05 14:24 | XMS_ITS | Encounter Summary ---
Author Organization [facility] Address [address] [place] [address] Care Team Providers Care Gluer And Wedger Name Role Phone Shaw Cervantes MD Unavailable [phone] Ryan Jenkins MD Unavailable Rosalva Stern PA-C Unavailable Charbel Poe Primary Care Provider Unavailabl e Encounter Details Date Type Department Care Team Description 01/30/2022 Kennel Worker Report Medical Records [address] [place] [address] Agnieszka Zapata MD [address] [place] [address] [address] [place] [address] Social History Tobacco Use Types Packs/Day Years [...] on filedocumented in this encounter Care Teams Gluer And Wedger Relationship Specialty Start Date End Date Charbel Poe [address] [place] [address] PCP - General Internal Medicine 02/21/21 Shaw Cervantes MD 2 [facility] [address] [place] [address] Specialist Cardiovascular Disease 02/18/21 Ryan Jenkins MD [address] [place] [address] Specialist Cardiology 02/18/21 Rosalva Stern PA-C [address] [place] [address] Specialist Cardiology 02/18/21 documented as of this encounter
--- OUTSIDE RECORDS SUMMARY | 2025-02-05 14:24 | XMS_ITS | Encounter Summary ---
Author Organization [facility] Address [address] [place] [address] Care Team Providers Care Cone Machine Feeder Name Role Phone Azalia Esposito MD Primary Care Provider Unavailable Shaw Cervantes MD Unavailable Ryan Jenkins MD Unavailable [phone] Rosalva Stern PA-C Unavailable Charbel Poe Primary Care Provider Unavailabl e Reason for Visit * Reason Onset Date Comments VNA Call 10/03/2019 Encounter Details Date Type Department Care Team Description 10/03/2019 Telephone Adult [address] [address] Azalia Esposito MD VNA Call Social History [...] on filedocumented in this encounter Care Teams Cone Machine Feeder Relationship Specialty Start Date End Date Azalia Esposito MD PCP - General Internal Medicine 12/02/1502/20/21 Charbel Poe [address] [place] [address] PCP - General Internal Medicine 02/21/21 Shaw Cervantes MD [address] [place] [address] Specialist Cardiovascular Disease 02/18/21 Ryan Jenkins MD [address] [place] [address] Specialist Cardiology 02/18/21 Rosalva Stern PA-C 300 [facility] [address] [place] [address] Specialist Cardiology 02/18/21 documented as of this encounter
--- OUTSIDE RECORDS SUMMARY | 2025-02-05 14:24 | XMS_ITS | Encounter Summary ---
Author Organization [facility] Address [address] [place] [address] Care Team Providers Care Hoisting Engineer Pile Driving Name Role Phone Shaw Cervantes MD Unavailable [phone] Ryan Jenkins MD Unavailable [phone] Rosalva Stern PA-C Unavailable Charbel Poe Primary Care Provider Unavailabl e Reason for Visit * Reason Onset Date Comments E-prescribe Rx Request 06/10/2021 incoming Fax [facility] Pharmacy Lopressor Encounter Details Date Type Department Care Team Description 06/10/2021 Refill Cardio PVC POC 154 [address] [facility] [address] [place] [address] Rosalva Stern PA-C [address] [place] [id number] E-prescribe Rx Request (incoming Fax [facility] Pharmacy Lopressor ) Social History Tobacco [...] on filedocumented in this encounter Care Teams Hoisting Engineer Pile Driving Relationship Specialty Start Date End Date Charbel Poe [address] [place] [address] PCP - General Internal Medicine 02/21/21 hSaw Cervantes MD [address] [place] [address] Specialist Cardiovascular Disease 02/18/21 Ryan Jenkins MD [address] [place] [address] Specialist Cardiology 02/18/21 Rosalva Stern PA-C 300 [facility] [address] [place] [address] Specialist Cardiology 02/18/21 documented as of this encounter
--- OUTSIDE RECORDS SUMMARY | 2025-02-05 14:24 | XMS_ITS | Encounter Summary ---
Author Organization [facility] Address [address] [place] [address] Care Team Providers Care Hrbp Name Role Phone Timmy-Azalia Recinos MD Primary Care Provider Unavailable Shaw Cervantes MD Unavailable [phone] Ryan Jenkins MD Unavailable [phone] Rosalva Stern PA-C Unavailable Charbel Poe Primary Care Provider Unavailabl e Encounter Details Date Type Department Care Team Description 12/06/2019 Gas Cutter Report Medical Records [address] [place] [address] Shaw Cervantes MD [address] [place] [address] Social History Tobacco Use Types Packs/Day Years [...] on filedocumented in this encounter Care Teams Hrbp Relationship Specialty Start Date End Date Azalia Esposito MD PCP - General Internal Medicine 12/02/1502/20/21 Charbel Poe [address] [place] [address] PCP - General Internal Medicine 02/21/21 Shaw Cervantes MD [address] [place] [address] Specialist Cardiovascular Disease 02/18/21 Ryan Jenkins MD [address] [place] [address] Specialist Cardiology 02/18/21 Rosalva Stern PA-C [address] [place] [address] Specialist Cardiology 02/18/21 documented as of this encounter
--- OUTSIDE RECORDS SUMMARY | 2025-02-05 14:24 | XMS_ITS | Encounter Summary ---
Author Organization [facility] Address [address] [place] [address] Care Team Providers Care University Administrative Assistant Name Role Phone Timmy-Azalia Recinos MD Primary Care Provider Unavailable Shaw Cervantes MD Unavailable [phone] Ryan Jenkins MD Unavailable [phone] Rosalva Stern PA-C Unavailable Charbel Poe Primary Care Provider Unavailabl e Encounter Details Date Type Department Care Team Description 12/20/2019 Tunnel Elastic Operator Lockstitch Report Medical Records [address] [place] [id number] [place] [address] Social History Tobacco Use Types Packs/Day Years [...] on filedocumented in this encounter Care Teams University Administrative Assistant Relationship Specialty Start Date End Date Azalia Esposito MD PCP - General Internal Medicine 12/02/1502/20/21 Charbel Poe [address] [address] PCP - General Internal Medicine 02/21/21 Shaw Cervantes MD [address] [place] [address] Specialist Cardiovascular Disease 02/18/21 Ryan Jenkins MD [address] [place] [address] Specialist Cardiology 02/18/21 Rosalva Stern PA-C [address] [place] [address] Specialist Cardiology 02/18/21 documented as of this encounter
--- OUTSIDE RECORDS SUMMARY | 2025-02-05 14:24 | XMS_ITS | Encounter Summary ---
Author Organization [facility] Address [address] [place] [address] Care Team Providers Care Value Analysis Coordinator Name Role Phone Azalia Esposito MD Primary Care Provider Unavailable Shaw Cervantes MD Unavailable [phone] Ryan Jenkins MD Unavailable [phone] Rosalva Stern PA-C Unavailable Charbel Poe Primary Care Provider Unavailabl e Encounter Details Date Type Department Care Team Description 08/26/2018 Cmm Inspector Report Medical Records [address] [place] [address] Social History Tobacco Use Types Packs/Day Years [...] on filedocumented in this encounter Care Teams Value Analysis Coordinator Relationship Specialty Start Date End Date Azalia Esposito MD PCP - General Internal Medicine 12/02/1502/20/21 Charbel Poe [address] [place] [address] PCP - General Internal Medicine 02/21/21 Shaw Cervantes MD [address] [place] [address] Specialist Cardiovascular Disease 02/18/21 Ryan Jenkins MD [address] [place] [address] Specialist Cardiology 02/18/21 Rosalva Stern PA-C [address] [place] [address] Specialist Cardiology 02/18/21 documented as of this encounter
--- OUTSIDE RECORDS SUMMARY | 2025-02-05 14:24 | XMS_ITS | Encounter Summary ---
Author Organization [facility] Address [address] [place] [address] Care Team Providers Care Gas Plant Operator Name Role Phone Timmy-Azalia Recinos MD Primary Care Provider Unavailable Shaw Cervantes MD Unavailable [phone] Ryan Jenkins MD Unavailable [phone] Rosalva Stern PA-C Unavailable Charbel Poe Primary Care Provider Unavailabl e Encounter Details Date Type Department Care Team Description 03/11/2020 Applied Marine Physics Professor Report Medical Records [address] [place] [address] Rosalva Stern PA-C [address] [place] [id number] Social History Tobacco Use Types Packs/Day Years [...] on filedocumented in this encounter Care Teams Gas Plant Operator Relationship Specialty Start Date End Date Azalia Esposito MD PCP - General Internal Medicine 12/02/1502/20/21 Charbel Poe [address] [address] PCP - General Internal Medicine 02/21/21 Shaw Cervantes MD [address] [place] [address] Specialist Cardiovascular Disease 02/18/21 Ryan Jenkins MD [address] [place] [address] Specialist Cardiology 02/18/21 Rosalva Stern PA-C [address] [place] [address] Specialist Cardiology 02/18/21 documented as of this encounter
--- OUTSIDE RECORDS SUMMARY | 2025-02-05 14:24 | XMS_ITS | Encounter Summary ---
Author Organization [facility] Address [address] [place] [address] Care Team Providers Care Nurses Director Name Role Phone Timmy-Azalia Recinos MD Primary Care Provider Unavailable Shaw Cervantes MD Unavailable [phone] Ryan Jenkins MD Unavailable [phone] Rosalva Stern PA-C Unavailable Charbel Poe Primary Care Provider Unavailabl e Encounter Details Date Type Department Care Team Description 11/22/2017 Maple Products Supervisor Report Medical Records [address] [place] [phone] [place] [address] Social History Tobacco Use Types Packs/Day Years [...] on filedocumented in this encounter Care Teams Nurses Director Relationship Specialty Start Date End Date Azalia Esposito MD PCP - General Internal Medicine 12/02/1502/20/21 Charbel Poe [address] [address] PCP - General Internal Medicine 02/21/21 Shaw Cervantes MD [address] [place] [address] Specialist Cardiovascular Disease 02/18/21 Ryan Jenkins MD [address] [place] [address] Specialist Cardiology 02/18/21 Rosalva Stern PA-C [address] [place] [address] Specialist Cardiology 02/18/21 documented as of this encounter
--- OUTSIDE RECORDS SUMMARY | 2025-02-05 14:24 | XMS_ITS | Encounter Summary ---
Author Organization [facility] Address [address] [place] [address] Care Team Providers Care Imaging Account Manager Name Role Phone Shaw Cervantes MD Unavailable [phone] Ryan Jenkins MD Unavailable [phone] Rosalva Stern PA-C Unavailable Charbel Poe Primary Care Provider Unavailabl e Encounter Details Date Type Department Care Team Description 11/17/2021 Transfer Records Medical Records [address] [place] [address] Abstract, Provider Social History Tobacco Use Types [...] on filedocumented in this encounter Care Teams Imaging Account Manager Relationship Specialty Start Date End Date Charbel Poe 300 [facility] [address] [place] [address] PCP - General Internal Medicine 02/21/21 Shaw Cervantes MD Medical [facility] [address] [place] [address] Specialist Cardiovascular Disease 02/18/21 Ryan Jenkins MD 300 [facility] [address] [place] [address] Specialist Cardiology 02/18/21 Rosalva Stern PA-C [address] [place] [address] Specialist Cardiology 02/18/21 documented as of this encounter
--- OUTSIDE RECORDS SUMMARY | 2025-02-05 14:24 | XMS_ITS | Encounter Summary ---
Author Organization [facility] Address [address] [place] [address] Care Team Providers Care Compliance Intern Name Role Phone Azalia Esposito MD Primary Care Provider Unavailable Shaw Cervantes MD Unavailable [phone] Ryan Jenkins MD Unavailable [phone] Rosalva Stern PA-C Unavailable Charbel Poe Primary Care Provider Unavailabl e Reason for Visit * Reason Onset Date Comments Faxed Order 10/10/2019 Encounter Details Date Type Department Care Team Description 10/10/2019 Telephone Adult [address] [id number] Azalia Esposito MD Faxed Order Social History [...] review, sign, date, and fax back to [phone]. Order #[id number] * Telephone Encounter - Joanna Moore - 10/13/2019 11:39 AM EDT Faxed order received from [facility]ox[facility] Lepe. Please review, sign, date, and fax back to [phone]. Order #[id number] * Telephone Encounter - Natalia Almeida - 10/10/2019 9:53 AM EDT Orders from Roxanna Lepe to be signed and faxed back to [phone] . documented in this encounter Plan of Treatment Not on file documented as of this encounter Visit Diagnoses Not on filedocumented in this encounter Care Teams Compliance Intern Relationship Specialty Start Date End Date [place]-Azalia Recinos MD PCP - General Internal Medicine 12/02/1502/20/21 Charbel Poe 300 [facility] [address] [place] [address] PCP - General Internal Medicine 02/21/21 Shaw Cervantes MD [address] Medical [facility] [address] [place] [address] Specialist Cardiovascular Disease 02/18/21 Ryan Jenkins MD 300 [facility] [address] [place] [address] Specialist Cardiology 02/18/21 Rosalva Stern PA-C 300 [facility] [address] [place] [address] Specialist Cardiology 02/18/21 documented as of this encounter
--- OUTSIDE RECORDS SUMMARY | 2025-02-05 14:24 | XMS_ITS | Encounter Summary ---
Author Organization [facility] Address [address] [place] [address] Care Team Providers Care Photography Intern Name Role Phone Azalia Esposito MD Primary Care Provider Unavailable Shaw Cervantes MD Unavailable [phone] Ryan Jenkins MD Unavailable [phone] Rosalva Stern PA-C Unavailable Charbel Poe Primary Care Provider Unavailabl e Encounter Details Date Type Department Care Team Description 06/29/2020 SCAN Medical Records [address] [place] [address] Abstract, Provider Social History Tobacco Use Types [...] on filedocumented in this encounter Care Teams Photography Intern Relationship Specialty Start Date End Date Azalia Esposito MD PCP - General Internal Medicine 12/02/1502/20/21 Charbel Poe [address] [place] [address] PCP - General Internal Medicine 02/21/21 Shaw Cervantes MD [address] [facility] [address] [place], [place] [address] Specialist Cardiovascular Disease 02/18/21 Ryan Jenkins MD [address] [place] [address] Specialist Cardiology 02/18/21 Rosalva Stern PA-C [address] [place] [address] Specialist Cardiology 02/18/21 documented as of this encounter
--- OUTSIDE RECORDS SUMMARY | 2025-02-05 14:24 | XMS_ITS | Encounter Summary ---
Author Organization [facility] Address [address] [place] [address] Care Team Providers Care Assistant Quality Manager Name Role Phone Azalia Esposito MD Primary Care Provider Unavailable Shaw Cervantes MD Unavailable [phone] Ryan Jenkins MD Unavailable [phone] Rosalva Stern PA-C Unavailable Charbel Poe Primary Care Provider Unavailabl e Reason for Visit * Reason Onset Date Comments Faxed Order 11/29/2019 [facility] Encounter Details Date Type Department Care Team Description 11/29/2019 Telephone Adult [address] [address] Azalia Esposito MD Faxed Order ([facility]ALD[facility] [...] providers bin for signature, fax back to [phone] documented in this encounter Plan of Treatment Not on file documented as of this encounter Visit Diagnoses Not on filedocumented in this encounter Care Teams Assistant Quality Manager Relationship Specialty Start Date End Date [place]-Azalia Recinos MD PCP - General Internal Medicine 12/02/1502/20/21 Charbel Poe [address] [place] [address] PCP - General Internal Medicine 02/21/21 Shaw Cervantes MD [address] [place] [address] Specialist Cardiovascular Disease 02/18/21 Ryan Jenkins MD [address] [place] [address] Specialist Cardiology 02/18/21 Rosalva Stern PA-C [address] [place] [address] Specialist Cardiology 02/18/21 documented as of this encounter
--- OUTSIDE RECORDS SUMMARY | 2025-02-05 14:24 | XMS_ITS | Encounter Summary ---
Author Organization [facility] Address [address] [place] [address] Care Team Providers Care Duty Manager Name Role Phone Timmy-Azalia Recinos MD Primary Care Provider Unavailable Shaw Cervantes MD Unavailable [phone] Ryan Jenkins MD Unavailable [phone] Rosalva Stern PA-C Unavailable Charbel Poe Primary Care Provider Unavailabl e Encounter Details Date Type Department Care Team Description 09/14/2018 Business Doc Medical Records [address] [place] [address] Abstract, Provider Social History Tobacco Use Types [...] on filedocumented in this encounter Care Teams Duty Manager Relationship Specialty Start Date End Date Azalia Esposito MD PCP - General Internal Medicine 12/02/1502/20/21 Charbel Poe [address] [address] PCP - General Internal Medicine 02/21/21 Shaw Cervantes MD [address] [place] [address] Specialist Cardiovascular Disease 02/18/21 Ryan Jenkins MD [address] [place] [address] Specialist Cardiology 02/18/21 Rosalva Stern PA-C [address] [place] [address] Specialist Cardiology 02/18/21 documented as of this encounter
--- OUTSIDE RECORDS SUMMARY | 2025-02-05 14:24 | XMS_ITS | Encounter Summary ---
Author Organization [facility] Address [address] [place] [address] Care Team Providers Care Pipe Stress Engineer Name Role Phone [place]-Azalia Recinos MD Primary Care Provider Unavailable Shaw Cervantes MD Unavailable [phone] Ryan Jenkins MD Unavailable [phone] Rosalva Stern PA-C Unavailable Charbel Poe Primary Care Provider Unavailthuan e Reason for Visit * Reason Onset Date Comments Medical Records 08/02/2020 Encounter Details Date Type Department Care Team Description 08/02/2020 Telephone Medical Records [address] [place] [id number] Abstract, Provider Medical Records Social History Tobacco [...] 08/02/2020 4:39 PM EST Faxed records to [facility] Att: Kirit Castro For New Appt. [phone]/ [phone] documented in this encounter Plan of Treatment Not on file documented as of this encounter Visit Diagnoses Not on filedocumented in this encounter Care Teams Pipe Stress Engineer Relationship Specialty Start Date End Date [place]-Azalia Recinos MD PCP - General Internal Medicine 12/02/1502/20/21 Charbel Poe [address] [place] [address] PCP - General Internal Medicine 02/21/21 Shaw Cervantes MD [address] [place] [address] Specialist Cardiovascular Disease 02/18/21 Ryan Jenkins MD [address] [place] [address] Specialist Cardiology 02/18/21 Rosalva Stern PA-C [address] [place] [address] Specialist Cardiology 02/18/21 documented as of this encounter
--- OUTSIDE RECORDS SUMMARY | 2025-02-05 14:24 | XMS_ITS | Encounter Summary ---
Author Organization [facility] Address [address] [place] [address] Care Team Providers Care Roving Sizer Name Role Phone Timmy-Azalia Recinos MD Primary Care Provider Unavailable Shaw Cervantes MD Unavailable [phone] Ryan Jenkins MD Unavailable [phone] Rosalva Stern PA-C Unavailable Charbel Poe Primary Care Provider Unavailabl e Encounter Details Date Type Department Care Team Description 12/27/2020 Administrative Operations Coordinator Report Medical Records [address] [place] [address] Center[facility] [address] [place] [address] Social History Tobacco Use Types Packs/Day Years [...] on filedocumented in this encounter Care Teams Roving Sizer Relationship Specialty Start Date End Date Azalia Esposito MD PCP - General Internal Medicine 12/02/1502/20/21 Charbel Poe [address] [place] [address] PCP - General Internal Medicine 02/21/21 Shaw Cervantes MD [address] [place] [address] Specialist Cardiovascular Disease 02/18/21 Ryan Jenkins MD [address] [place] [address] Specialist Cardiology 02/18/21 Rosalva Stern PA-C [address] [place] [address] Specialist Cardiology 02/18/21 documented as of this encounter
--- OUTSIDE RECORDS SUMMARY | 2025-02-05 14:24 | XMS_ITS | Encounter Summary ---
Author Organization [facility] Address [address] [place] [address] Care Team Providers Care Aoc Director Combat Plans Officer Name Role Phone Timmy-Azalia Recinos MD Primary Care Provider Unavailable Shaw Cervantes MD Unavailable [phone] Ryan Jenkins MD Unavailable [phone] Rosalva Stern PA-C Unavailable Charbel Poe Primary Care Provider Unavailabl e Encounter Details Date Type Department Care Team Description 10/27/2019 Municipal Clerk Report Medical Records [address] [place] [address] Shaw Cervantes MD [address] [place] [address] Social History Tobacco Use Types Packs/Day Years [...] on filedocumented in this encounter Care Teams Aoc Director Combat Plans Officer Relationship Specialty Start Date End Date Azalia Esposito MD PCP - General Internal Medicine 12/02/1502/20/21 Charbel Poe [address] [place] [address] PCP - General Internal Medicine 02/21/21 Shaw Cervantes MD [address] [place] [address] Specialist Cardiovascular Disease 02/18/21 Ryan Jenkins MD [address] [place] [address] Specialist Cardiology 02/18/21 Rosalva Stern PA-C [address] [place] [address] Specialist Cardiology 02/18/21 documented as of this encounter
--- OUTSIDE RECORDS SUMMARY | 2025-02-05 14:24 | XMS_ITS | Encounter Summary ---
Author Organization [facility] Address [address] [place] [address] Care Team Providers Care Director Of Materials Management Name Role Phone Azalia Esposito MD Primary Care Provider Unavailable Shaw Cervantes MD Unavailable [phone] Ryan Jenkins MD Unavailable [phone] Rosalva Stern PA-C Unavailable Charbel Poe Primary Care Provider Unavailabl e Reason for Visit * Reason Onset Date Comments Faxed Order 12/05/2019 Roxanna Lepe Encounter Details Date Type Department Care Team Description 12/05/2019 Telephone Adult Medicine - [address] [address] Azalia Esposito MD Faxed Order (Roxanna Lepe) [...] per list is Dr Timothy Pringle in [facility]. fyi * Telephone Encounter - Telma Jenkins [...] to face attestation. DOS 08-24-19 faxed to [phone]. If any questions she can be reached at [phone] * Telephone Encounter - Mona Vasquez - 12/05/2019 2:36 PM EDT Faxed order received by Roxanna placed in providers bin for signature, fax back to [phone] documented in this encounter Plan of Treatment Not on file documented as of this encounter Visit Diagnoses Not on filedocumented in this encounter Care Teams Director Of Materials Management Relationship Specialty Start Date End Date Santa-Azalia Recinos MD PCP - General Internal Medicine 12/02/1502/20/21 Charbel Poe [address] [place] [address] PCP - General Internal Medicine 02/21/21 Shaw Cervantes MD [address] [place], [place] [address] Specialist Cardiovascular Disease 02/18/21 Ryan Jenkins MD [address] [place] [address] Specialist Cardiology 02/18/21 Rosalva Stern PA-C [address] [place] [address] Specialist Cardiology 02/18/21 documented as of this encounter
--- OUTSIDE RECORDS SUMMARY | 2025-02-05 14:24 | XMS_ITS | Encounter Summary ---
Author Organization [facility] Address [address] [place] [address] Care Team Providers Care Grapple Skidder Operator Name Role Phone Timmy-Azalia Recinos MD Primary Care Provider Unavailable Shaw Cervantes MD Unavailable [phone] Ryan Jenkins MD Unavailable [phone] Rosalva Stern PA-C Unavailable Charbel Poe Primary Care Provider Unavailabl e Encounter Details Date Type Department Care Team Description 08/09/2019 [facility] Medical Records [address] [place] [address] Jessica Valadez Social History Tobacco Use Types [...] on filedocumented in this encounter Care Teams Grapple Skidder Operator Relationship Specialty Start Date End Date Azalia Esposito MD PCP - General Internal Medicine 12/02/1502/20/21 Charbel Poe [address] [place] [address] PCP - General Internal Medicine 02/21/21 Shaw Cervantes MD [address] [facility] [address] [place], [place] [address] Specialist Cardiovascular Disease 02/18/21 Ryan Jenkins MD [address] [place] [address] Specialist Cardiology 02/18/21 Rosalva Stern PA-C [address] [place] [address] Specialist Cardiology 02/18/21 documented as of this encounter
--- OUTSIDE RECORDS SUMMARY | 2025-02-05 14:24 | XMS_ITS | Encounter Summary ---
Author Organization [facility] Address [address] [place] [address] Care Team Providers Care Firearms Inspector Name Role Phone Timmy-Azalia Recinos MD Primary Care Provider Unavailable Shaw Cervantes MD Unavailable [phone] Ryan Jenkins MD Unavailable [phone] Rosalva Stern PA-C Unavailable Charbel Poe Primary Care Provider Unavailabl e Encounter Details Date Type Department Care Team Description 08/30/2019 [facility] Medical Records [address] [place] [address] Nella Pritchett, [employer] POWER PLANT MANAGER Social History Tobacco Use Types Packs/Day Years [...] on filedocumented in this encounter Care Teams Firearms Inspector Relationship Specialty Start Date End Date Azalia Esposito MD PCP - General Internal Medicine 12/02/1502/20/21 Charbel Poe [address] [place] [address] PCP - General Internal Medicine 02/21/21 Shaw Cervantes MD Medical [facility] [address] [place], [place] [address] Specialist Cardiovascular Disease 02/18/21 Ryan Jenkins MD [address] [place] [address] Specialist Cardiology 02/18/21 Rosalva Stern PA-C [address] [place] [address] Specialist Cardiology 02/18/21 documented as of this encounter
--- OUTSIDE RECORDS SUMMARY | 2025-02-05 14:24 | XMS_ITS | Encounter Summary ---
Author Organization [facility] Address [address] [place] [address] Care Team Providers Care Switch Technician Name Role Phone Timmy-Azalia Recinos MD Primary Care Provider Unavailable Shaw Cervantes MD Unavailable [phone] Ryan Jenkins MD Unavailable [phone] Rosalva Stern PA-C Unavailable Charbel Poe Primary Care Provider Unavailabl e Encounter Details Date Type Department Care Team Description 11/07/2019 [facility] Medical Records [address] [place] [id number] [place] [address] Social History Tobacco Use Types Packs/Day Years [...] on filedocumented in this encounter Care Teams Switch Technician Relationship Specialty Start Date End Date Azalia Esposito MD PCP - General Internal Medicine 12/02/1502/20/21 Charbel Poe [address] [place] [address] PCP - General Internal Medicine 02/21/21 Shaw Cervantes MD Medical [facility] [address] [place], [place] [address] Specialist Cardiovascular Disease 02/18/21 Ryan Jenkins MD [address] [place] [address] Specialist Cardiology 02/18/21 Rosalva Stern PA-C [address] [place] [address] Specialist Cardiology 02/18/21 documented as of this encounter
== END 2025-02-05 13:43 | disposition home or self-care (01) ==
LOC: HO.ACS 13:05
PROVIDERS: PCP Internal Medicine; Visit Provider Internal Medicine Medical Oncology
DX: Z79.01 Long term (current) use of anticoagulants (principal)

== ENCOUNTER → 2025-02-05 13:05 | Outpatient (BNVA) | payer MEDICARE, SELFPAY | PROVIDERS: PCP Internal Medicine; Visit Provider Internal Medicine Medical Oncology | DX: J44.9 Chronic obstructive pulmonary disease, unspecified (principal); I44.2 Atrioventricular block, complete; I42.8 Other cardiomyopathies; K29.81 Duodenitis with bleeding; D62 Acute posthemorrhagic anemia; Z79.899 Other long term (current) drug therapy; Z99.81 Dependence on supplemental oxygen; Z13.31 Encounter for screening for depression; I48.0 Paroxysmal atrial fibrillation; Z51.81 Encounter for therapeutic drug level monitoring; Z79.01 Long term (current) use of anticoagulants | CPT/HCPCS: 85610; 96127; 99211; 99212 ==

== ENCOUNTER 2025-02-05 13:57 | Outpatient (AMB) | payer MEDICARE, SELFPAY ==
--- NOTE | 2025-02-05 14:16 | MHC.PC.OV ---
Vital Signs 02/05/25 14:17 Height 5 ft 8 in Weight 196 lb 2 oz BMI 29.8 BP 130/60 Blood Pressure Location Lt brachial Position Sitting Pulse 94 Pulse Source Pulse Oximeter Temp 97.5 F Temp Source Temporal Artery Scan Pulse Oximetry (%) 90 L Oxygen Delivery Method Nasal Cannula Intake Visit Reasons: 3mth f/u Intake Note: Patient is here to follow up on PAfib, CHF, COPD. Sock Drier Required: No Machine Chocolate Molder: Not Required per policy Accompanied by: Self / Same As Patient Allergies head and shoulders shampoo Adverse Reaction (Severe, Uncoded 02/05/25 14:49) burn Medication List - Last Reconciled 02/05/25 by Vinh Briceño MD albuterol sulfate 90 mcg/actuation 2 puffs inhalation Q6H PRN budesonide-formoterol 80-4.5 mcg/actuation 2 puffs inhalation BID 90 days ipratropium-albuterol 0.5 mg-3 mg(2.5 mg base)/3 mL 3 mL inhalation QID lisinopril 2.5 mg (1/2 x 5 mg) PO DAILY metoprolol succinate ER 100 mg (2 x 50 mg) PO DAILY multivitamin (Daily Multi-Vitamin tablet) 1 tab PO DAILY nebulizers To use every 4 hours omeprazole 40 mg PO BID 90 days Oxygen Home Use As directed spironolactone 12.5 mg (1/2 x 25 mg) PO DAILY warfarin See Protocol Take 5mg orally daily, with dose adjustments as per Anticoagulation Services 90 days Tobacco use date assessed: 02/05/25 Fall risk assessment: No Falls in past year Last assessed Fall Risk: 02/05/25 Dental Screening Dental Screen Date: 10/23/24 HPI 3mth f/u HPI Details Patient comes in today for his follow up visit Patient states that he feels okay He denies any headaches or dizziness Denies any chest pains, has frequent ALEXIS, which is chronic - he has advanced COPD and is on oxygen 04/[address] up [address] Dr. 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 Mother No problems noted. Brother Esophageal cancer Social History Household Members: None [facility] Do you presently have visiting nurse or other home services: No Alcohol intake: current Alcohol intake frequency: other Comment: no telesitter available at this time Patient Tobacco Use Status: Current someday Tobacco user Tobacco use type: Cigarette Cigarette Packs Per Day: 0.5 Cigarettes Per Day: 10 Years Smoked: (onset 18yo, 1-1.5ppd x 53yrs, 65pyh - now 1cig/day) e-Cigarette/Vaping Use: Never Used Second Hand Smoke Exposure: Yes Advance Directives Date on File: 07/01/20 service: No Current occupational status: retired Current occupation: RETIRED Current occupational exposures/hazards: No Cognitive needs: Yes (walker) Hearing needs: No Vision needs: No Questionnaire PHQ-9 Over the last 2 weeks, how often have you been bothered by any of the following problems? 1. Little interest or pleasure in doing things: not at all 2. Feeling down, depressed, or hopeless: not at all 3. Trouble falling or staying asleep, or sleeping too much: not at all 4. Feeling tired or having little energy: more than half the days 5. Poor appetite or overeating: not at all 6. Feeling bad about yourself - or that you are a failure or have let yourself or your family down: not at all 7. Trouble concentrating on things, such as reading the newspaper or watching television: not at all 8. Moving or speaking so slowly that other people could have noticed. Or the opposite - being so fidgety or restless that you have been moving around a lot more than usual: not at all 9. Thoughts that you would be better off or of hurting yourself in some way: several days Total score: 3 Depression Screening Interpretation: Positive Depression Screening Follow-up: Follow-up Visit Requested Depression Screening Done: Yes 20907 - PHQ-9 Billing: Yes Source: Developed by Drs. Paramjit Wade, Max Brooks and colleagues, with an educational seble from [employer]. Thrive Questionnaire Date Thrive assessed: 10/23/24 I am a: Patient What is your living situation today?: I have a steady place to live Within the past 12 months, did the food you bought not last and you didn't have the money to get more?: Never true Within the past 12 months, did you worry whether your food would run out before you got money to buy more?: Never true Do you have trouble paying for medicines?: No Do you have trouble getting transportation to medical appointments?: Yes Do you have trouble paying your heating and electricity bill?: No Do you have trouble taking care of your child, family member or friend?: Yes Do you have trouble with day-to-day activities such as bathing, preparing meals, shopping, managing finances, etc.?: Yes Are you currently unemployed and looking for a job?: Yes Are you interested in more education?: No Currently or been in a relationship where the following occur: No concerns reported THRIVE Score: 1 AUDIT C Alcohol Use Questionnaire (AUDIT-C) 1. How often do you have a drink containing alcohol?: Never 3. How often do you have six or more drinks on one occasion?: Never Total Score: 0 Score Reviewed/Action Taken: Yes ALEJO-7 AMB Questionnaire ALEJO-7 Date ALEJO - 7 assessed: 10/23/24 Source: Developed by Drs. Paramjit Wade, Max Brooks and colleagues, with an educational seble from [employer]. Review of Systems Const Denies chills, Reports fatigue, Denies fever(s) and Denies headache(s) Eyes Reports loss of vision (blind in the right eye) ENT Denies dysphagia, Denies dizziness, Denies otalgia, Denies headache(s), Denies neck pain, Denies odynophagia and Denies sore throat Card Denies chest pain, Denies irregular heart rhythm and Reports dyspnea on exertion (chronic) Resp Denies chest congestion, Reports cough (occasional, non-productive), Reports dyspnea on exertion (chronic) and Denies wheezing GI Denies abdominal pain, Denies hematochezia, Denies constipation, Denies dysphagia, Denies heartburn, Denies diarrhea, Denies nausea, Denies odynophagia and Denies vomiting Denies difficulty urinating, Denies dysuria, Denies nocturia and Denies urinary frequency Musc Denies back pain and Denies neck pain Skin/Breast Denies rash Neuro Denies dizziness, Denies headache(s) and Reports loss of vision (blind in the right eye) Psych Denies anxiety and Denies depression Endo Reports fatigue Aller/Immun Denies wheezing Physical exam (Primary Care) Vital Signs: Last Vital Signs Temp 97.5 F 02/05/25 14:17 Pulse 94 02/05/25 14:17 BP 130/60 02/05/25 14:17 Pulse Ox 90 L 02/05/25 14:17 Oxygen Delivery Method Nasal Cannula 02/05/25 14:17 BMI result Body Mass Index 29.8 Tobacco/Smoking Status: Tobacco use Status Tobacco use date assessed 02/05/25 02/05/25 14:32 Patient Tobacco Use Status Current someday Tobacco 02/05/25 14:32 Tobacco use type Cigarette 02/05/25 14:32 e-Cigarette/Vaping Use Never Used 02/05/25 14:32 PHQ-9: PHQ-9 Score PHQ-9: Total score 3 02/13/25 00:30 Depression Screening Interpretation: Positive Depression Screening Follow-up: Follow-up Visit Requested Thrive Assessment: Date of Thrive Assessment Date Thrive assessed 10/23/24 02/05/25 14:32 Currently or been in a relationship where the following occur: No concerns reported Const General: no acute distress and alert HENMT Ears: TM's normal bilaterally and EAC's normal Throat: Yes posterior oropharynx normal and Yes tonsils normal (no TP congestion) Neck Neck: Yes supple and No lymphadenopathy Thyroid: Thyroid normal Resp Auscultation: clear to auscultation bilaterally, no rales, no wheezes and diminished lung sounds bilateral Cardio Rate: regular rate Rhythm: regular rhythm Heart sounds: no murmurs GI Palpation (GI): Soft to palpation and nontender Auscultation: normal bowel sounds General: Yes no CVA tenderness Back/Spine/Pelvis Back: no CVA tenderness Thoracic/Lumbar Spine: No lumbar spinal tenderness Skin Rashes: no rashes Extrem General: Yes no clubbing, cyanosis or edema Results Reviewed Results Reviewed: Laboratory Tests 01/15/25 01/15/25 13:02 13:54 WBC 11.7 H Hgb 10.2 L D Hct 36.2 L D Plt Count 228 Sodium 142 Potassium 4.3 Creatinine 0.68 Estimated GFR > 60 Fasting Glucose 106 H Calcium 9.2 AST 20 ALT 11 B-Natriuretic Peptide 45 Triglycerides 227 H Cholesterol 228 H LDL Cholesterol, Calc 144 H HDL Cholesterol 39 L 25-OH Vitamin D Total 37.4 TSH 0.92 Ur Specific [place] 1.025 Urine Protein 100 (2+) H Urine Glucose (UA) Negative Urine Blood Negative Urine Nitrite Negative Ur Leukocyte Esterase Small (1+) H Coding Level of Care Code Est Pt Level 4 (70544) Diagnoses Chronic obstructive pulmonary disease, unspecified COPD type J44.9 COPD type: unspecified COPD Complete heart block I44.2 Nonischemic cardiomyopathy I42.8 Paroxysmal atrial fibrillation I48.0 Gastrointestinal hemorrhage associated with duodenitis K29.81 GI bleed type/associated pathology: duodenitis Anemia due to acute blood loss D62 Anemia type: other cause Other causes of anemia: acute posthemorrhagic Additional Codes PHQ-9 - 32891 - PHQ-9 Billing: Yes ([id number]) Assessment & Plan Assessment & Plan (1) COPD (chronic obstructive pulmonary disease): Comment: Advanced chronic obstructive pulmonary disease. Recent acute exacerbation due to pneumonia, which has resolved and he seems to be at baseline at present. Code(s): J44.9 - Chronic obstructive pulmonary disease, unspecified Category: Medical Qualifiers: COPD type: unspecified COPD Qualified Code(s): J44.9 - Chronic obstructive pulmonary disease, unspecified Plan: Patient has chronic shortness of breath due to his COPD and he is oxygen-dependent Continue Budesonide-formoterol 80-4.5 mcg 2 inhalations BID and Albuterol HFA 1 to 2 inhalations Q 6 hours PRN He also has Duoneb that he can use via nebulization QID PRN Follow up with pulmonary as scheduled (2) Complete heart block: Code(s): I44.2 - Atrioventricular block, complete Category: Medical Plan: Patient currently has a pacemaker in place and is being remotely monitored by cardiology (3) Nonischemic cardiomyopathy: Comment: 02/04/2023, LAD and left circumflex with minimal luminal irregularities, left main and RCA normal Code(s): I42.8 - Other cardiomyopathies Category: Medical Plan: Echocardiogram done on 07/02/20 showed EF of 45-50%. Repeat echocardiogram on 11/17/2022 showed EF of 32%. His most recent echocardiogram on 04/19/2023 revealed (+) mildly reduced LV systolic function with LVEF of 45-50% with impaired relaxation filling pattern Cardiac catheterization done on 02/04/23 revealed only (+) minimal luminal irregularities of the LAD and left circumflex Continue Metoprolol ER 100 mg QD and Lisinopril 2.5 mg QD for neurohormonal modulation Continue Spironolactone 12.5 mg QD Follow up with cardiology as scheduled (4) Paroxysmal atrial fibrillation: Code(s): I48.0 - Paroxysmal atrial fibrillation Category: Medical Plan: Patient is currently in sinus rhythm Continue Metoprolol ER 100 mg QD Continue Coumadin daily for thromboembolism prophylaxis (5) GI bleed: Code(s): K92.2 - Gastrointestinal hemorrhage, unspecified Category: Medical Qualifiers: GI bleed type/associated pathology: duodenitis Qualified Code(s): K29.81 - Duodenitis with bleeding Plan: EGD done at [facility] on 08/16/2024 revealed (+) duodenitis with healing ulcer; Bx was benign Continue Omeprazole 40 mg BID Follow up with GI as scheduled (6) Anemia: Code(s): D64.9 - Anemia, unspecified Category: Medical Qualifiers: Anemia type: other cause Other causes of anemia: acute posthemorrhagic Qualified Code(s): D62 - Acute posthemorrhagic anemia Plan: H/H was at 8.3/28.2 back on 08/25/2024, likely due to his GI bleed He required blood transfusions during his last hospitalization in August 2024 for GI bleeding and pneumonia/COPD exacerbation His anemia has since improved and his last H/H was at 10.2/36.2 a few weeks ago on 01/15/2025 Will continue to monitor his CBC regularly Plan Follow up in 3 months Orders: Orders Comprehensive [place]. Panel Fast 3 Months E78.00 - Pure hypercholesterolemia, unspecified Lipid Panel 3 Months E78.00 - Pure hypercholesterolemia, unspecified Complete Blood Count Auto Diff 3 Months D64.9 - Anemia, unspecified
[2025-02-05 14:17] VITALS: BP 130/60; PULSE 94; TEMP 36.4; O2SAT 90; BMI 29.8
== END 2025-02-05 15:03 | disposition home or self-care (01) ==
LOC: HO.HMCH 13:58
PROVIDERS: PCP Internal Medicine; Visit Provider Internal Medicine
DX: J44.9 Chronic obstructive pulmonary disease, unspecified (principal); I44.2 Atrioventricular block, complete; I42.8 Other cardiomyopathies; I48.0 Paroxysmal atrial fibrillation; K29.81 Duodenitis with bleeding; D62 Acute posthemorrhagic anemia

== ENCOUNTER 2025-02-15 12:56 | Outpatient (AMB) | payer MEDICARE, SELFPAY ==
[2025-02-15 13:05] LABS: Prothrombin Time Whole Bld POC 32.8 sec (11.1-13.5); ~PT, ~INR - Anti Coag Clinic 2.7 (0.9-1.1)
--- NOTE | 2025-02-15 13:08 | MHC.OFFVISCO ---
Intake Intake Visit Reasons: Anticoagulation Allergies head and shoulders shampoo Adverse Reaction (Severe, Uncoded 02/15/25 12:59) burn Medication List - Last Reconciled 02/15/25 by Clarisse Enrique RN albuterol sulfate 90 mcg/actuation 2 puffs inhalation Q6H PRN budesonide-formoterol 80-4.5 mcg/actuation 2 puffs inhalation BID 90 days ipratropium-albuterol 0.5 mg-3 mg(2.5 mg base)/3 mL 3 mL inhalation QID lisinopril 2.5 mg (1/2 x 5 mg) PO DAILY metoprolol succinate ER 100 mg (2 x 50 mg) PO DAILY multivitamin (Daily Multi-Vitamin tablet) 1 tab PO DAILY nebulizers To use every 4 hours omeprazole 40 mg PO BID 90 days Oxygen Home Use As directed spironolactone 12.5 mg (1/2 x 25 mg) PO DAILY warfarin See Protocol Take 5mg orally daily, with dose adjustments as per Anticoagulation Services 90 days Nursing Note PT.DENIES ANY CP,FALLS DIET/MED CHANGES OR SX OF BLEEDING. STILL USING CONT.O2. CONTINUE PRESENT WARFARIN DOSING AND FOLLOW-UP ON 03/07/25. GOOD UNDESTANDING OF DOSING INSTR. Anti-Coag Initial Assessment Social Hx Patient Tobacco Use Status: Current someday Tobacco user Tobacco use type: Cigarette Smoking packs per day: 0.5 alcohol intake: current Alcohol intake frequency: other Cardiovascular Hx: HTN, CHF, Arrhythmias and Other Lung Disease HX: COPD and Other Blood Disorder Hx: Anemia GI Hx: Diverticulosis Neurological Hx: Other Cancer HX: No Psych. Illness/Depression: No Coding Level of Care Code Est Patient Level 1 Diagnoses Current use of anticoagulant therapy Z79.01 Results AMB INR Fingerstick AMB INR Fingerstick 2.7 Last Edit by Clarisse Enrique RN on 02/15/25 13:07 Assessment & Plan Assessment & Plan (1) Current use of anticoagulant therapy: Code(s): Z79.01 - [facility] (current) use of anticoagulants
--- OUTSIDE RECORDS SUMMARY | 2025-02-15 14:14 | XMS_ITS | Clinical Summary ---
Author Organization [facility] Address [address] [place] [address] Care Team Providers Care Party Director Name Role Phone Charbel Poe MD Primary Care Provider [phone] Surgical History Surgery Date Site/Laterality Comments OTHER SURGICAL HISTORY PROCEDURE: DENIES PREVIOUS SURGERY COLONOSCOPY 07/09/2009 PROCEDURE: HISTORICAL COLONOSCOPY; COMMENT: [facility]. Diverticulosis. UPPER GASTROINTESTINAL ENDOSCOPY 07/09/2009 PROCEDURE: MD UPPER GI ENDOSCOPY PERFORMED; COMMENT: [facility], GI bleed. No significant abnormalities. Medical History Medical History Date Comments Iron deficiency anemia 07/16/2009 DX:Iron d eficiency anemia Tobacco abuse 07/16/2009 DX:Tobacco abuse ; COMMENT: Has tried Wellbutrin, Chantix, hypnotherapy, nicotine patch and gum 10/22 - [employer] unable to contact after 5 attempts Diverticulosis, sigmoid 07/16/2009 DX:Diver ticulosis, sigmoid; COMMENT: Lower GI bleed 06/23. Admitted to [facility]. Colonoscopy 06/23. 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 Stack Severe obstructive [...] 05/17/2022 Hypertension/CHF/CAD Annual BMP Blood Test 05/28/2022 Depression Screening 06/14/2024 COVID-19 Vaccine ( season) 2025 Influenza Vaccine (#1) 2025 9, 03/14/2018, 04/29/2016, [...] Documents on File Type Date Recorded Patient Apprentice Technician Expl anation Health Care Decision (hx) 02/08/2020 AD PAZ DIRECTIVE Health Care Decision (hx) 02/08/2020 AD PAZ DIRECTIVE Health Care Decision (hx) 02/08/2020 AD PAZ DIRECTIVE Health Care Decision (hx) 02/08/2020 AD PAZ DIRECTIVE Health Care Decision (hx) 02/08/2020 AD PAZ DIRECTIVE Care Teams Party Director Relationship Specialty Start Date End Date Charbel Poe MD [address] [place] [address] [address] [place] [address] PCP - General Internal Medicine 02/21/21
== END 2025-02-15 13:12 | disposition home or self-care (01) ==
LOC: HO.ACS 12:56
PROVIDERS: PCP Internal Medicine; Visit Provider Internal Medicine Medical Oncology
DX: Z79.01 Long term (current) use of anticoagulants (principal)

== ENCOUNTER → 2025-02-15 12:56 | Outpatient (BNVA) | payer MEDICARE, SELFPAY | PROVIDERS: PCP Internal Medicine; Visit Provider Internal Medicine Medical Oncology | DX: I48.0 Paroxysmal atrial fibrillation (principal); Z79.01 Long term (current) use of anticoagulants; Z51.81 Encounter for therapeutic drug level monitoring | CPT/HCPCS: 85610; 99211 ==

== ENCOUNTER 2025-03-07 12:57 | Outpatient (AMB) | payer MEDICARE, SELFPAY ==
--- NOTE | 2025-03-07 13:12 | MHC.OFFVISCO ---
Intake Intake Visit Reasons: Anticoagulation Allergies head and shoulders shampoo Adverse Reaction (Severe, Uncoded 03/07/25 13:05) burn Medication List - Last Reconciled 03/07/25 by Jada Bradshaw RN albuterol sulfate 90 mcg/actuation 2 puffs inhalation Q6H PRN budesonide-formoterol 80-4.5 mcg/actuation 2 puffs inhalation BID 90 days ipratropium-albuterol 0.5 mg-3 mg(2.5 mg base)/3 mL 3 mL inhalation QID lisinopril 2.5 mg (1/2 x 5 mg) PO DAILY metoprolol succinate ER 100 mg (2 x 50 mg) PO DAILY multivitamin (Daily Multi-Vitamin tablet) 1 tab PO DAILY nebulizers To use every 4 hours Oxygen Home Use As directed spironolactone 12.5 mg (1/2 x 25 mg) PO DAILY warfarin See Protocol Take 5mg orally daily, with dose adjustments as per Anticoagulation Services 90 days Nursing Note INR: 2.0- in therapeutic range 2-3 Medications and supplements reviewed- no changes, pt states not taking omeprazole for several months No changes in health, diet, medications, or supplements, Denies any signs and symptoms of bleeding or bruising or clotting. Bleeding, bruising, clotting discussed Nutritional guidance given - no greens for 2-3 days, eat a red to raise Dose: 2.5mg x 3, 5mg x 4 F/U INR: pt req 4 weeks Patient verbalizes understanding of instructions given pt amb with walker, on cont oxygen, seeing pulm today Anti-Coag Initial Assessment Social Hx Patient Tobacco Use Status: Current someday Tobacco user Tobacco use type: Cigarette Smoking packs per day: 0.5 alcohol intake: current Alcohol intake frequency: other Cardiovascular Hx: HTN, CHF, Arrhythmias and Other Lung Disease HX: COPD and Other Blood Disorder Hx: Anemia GI Hx: Diverticulosis Neurological Hx: Other Cancer HX: No Psych. Illness/Depression: No Coding Level of Care Code Est Patient Level 1 Diagnoses Current use of anticoagulant therapy Z79.01 Assessment & Plan Assessment & Plan (1) Current use of anticoagulant therapy: Code(s): Z79.01 - terminologist (current) use of anticoagulants
[2025-03-07 13:13] LABS: Prothrombin Time Whole Bld POC 23.9 sec (11.1-13.5); ~PT, ~INR - Anti Coag Clinic 2.0 (0.9-1.1)
--- OUTSIDE RECORDS SUMMARY | 2025-03-07 15:22 | XMS_ITS | Clinical Summary ---
Author Organization [facility] Address [address] [place] [address] Care Team Providers Care Board Finisher Name Role Phone Charbel Poe MD Primary Care Provider [phone] Surgical History Surgery Date Site/Laterality Comments OTHER SURGICAL HISTORY PROCEDURE: DENIES PREVIOUS SURGERY COLONOSCOPY 07/09/2009 PROCEDURE: HISTORICAL COLONOSCOPY; COMMENT: [facility]. Diverticulosis. UPPER GASTROINTESTINAL ENDOSCOPY 07/09/2009 PROCEDURE: [place] UPPER GI ENDOSCOPY PERFORMED; COMMENT: [facility], GI bleed. No significant abnormalities. Medical History Medical History Date Comments Iron deficiency anemia 07/16/2009 DX:Iron d eficiency anemia Tobacco abuse 07/16/2009 DX:Tobacco abuse ; COMMENT: Has tried Wellbutrin, Chantix, hypnotherapy, nicotine patch and gum 10/22 - [employer] unable to contact after 5 attempts Diverticulosis, sigmoid 07/16/2009 DX:Diver ticulosis, sigmoid; COMMENT: Lower GI bleed 06/23. Admitted to [facility]. Colonoscopy 06/23. 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
== END 2025-03-07 13:18 | disposition home or self-care (01) ==
LOC: HO.ACS 12:57
PROVIDERS: PCP Internal Medicine; Visit Provider Internal Medicine Medical Oncology
DX: Z79.01 Long term (current) use of anticoagulants (principal)

== ENCOUNTER → 2025-03-07 12:57 | Outpatient (BNVA) | payer MEDICARE, SELFPAY | PROVIDERS: PCP Internal Medicine; Visit Provider Internal Medicine Medical Oncology | DX: R91.8 Other nonspecific abnormal finding of lung field (principal); J44.9 Chronic obstructive pulmonary disease, unspecified; R09.02 Hypoxemia; F17.210 Nicotine dependence, cigarettes, uncomplicated; Z71.6 Tobacco abuse counseling; Z51.81 Encounter for therapeutic drug level monitoring; Z79.01 Long term (current) use of anticoagulants; Z79.51 Long term (current) use of inhaled steroids; Z79.899 Other long term (current) drug therapy | CPT/HCPCS: 85610; 99211; 99212 ==

== ENCOUNTER 2025-03-07 13:19 | Outpatient (AMB) | payer MEDICARE, SELFPAY ==
[2025-03-07 13:23] VITALS: BP 110/60; PULSE 90; O2SAT 95; BMI 29.8
--- NOTE | 2025-03-07 13:23 | A.OFFVIS_ITS ---
Vital Signs 03/07/25 13:23 Height 5 ft 8 in Weight 196 lb 3.382 oz BMI 29.8 BP 110/60 Blood Pressure Location Lt brachial Position Sitting Pulse 90 Pulse Source Pulse Oximeter Pulse Oximetry (%) 95 Oxygen Delivery Method Nasal Cannula Oxygen Flow Rate 3 Intake Visit Reasons: COPD Intake Note: pt is here for follow up and states he is doing okay. Microphone Operator Required: No Allergies head and shoulders shampoo Adverse Reaction (Severe, Uncoded 03/07/25 13:39) burn Medication List - Last Reconciled 03/07/25 by Rey August MD albuterol sulfate 90 mcg/actuation 2 puffs inhalation Q6H PRN budesonide-formoterol 80-4.5 mcg/actuation 2 puffs inhalation BID 90 days ipratropium-albuterol 0.5 mg-3 mg(2.5 mg base)/3 mL 3 mL inhalation QID lisinopril 2.5 mg (1/2 x 5 mg) PO DAILY metoprolol succinate ER 100 mg (2 x 50 mg) PO DAILY multivitamin (Daily Multi-Vitamin tablet) 1 tab PO DAILY nebulizers To use every 4 hours Oxygen Home Use As directed spironolactone 12.5 mg (1/2 x 25 mg) PO DAILY warfarin See Protocol Take 5mg orally daily, with dose adjustments as per Anticoagulation Services 90 days Do you need a note to return to daycare/school/sports/work: No HPI HPI COPD: Details: Mr. Sherman 74 years old gentleman with advanced chronic obstructive pulmonary disease, comes for follow-up after 3 months. He is doing fairly well with his usual shortness of breath and intermittent cough. Unfortunately he went back to smoking, and currently smokes about 10 cigarettes a day. Every time he tries to quit then with lot of stress in his life he goes back to smoking Overall his breathing has been stable . He walks around with walker and uses portable oxygen all the times . He gets his inhalers from [facility]. At a much cheaper riley, so with this arrangement he is able to afford these inhalers. 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 Mother No problems noted. Brother Esophageal cancer Social History Household Members: None Housing: Condominium Do you presently have visiting nurse or other home services: No Alcohol intake: current Alcohol intake frequency: other Comment: no telesitter available at this time Patient Tobacco Use Status: Current someday Tobacco user Tobacco use type: Cigarette Cigarette Packs Per Day: 0.5 Cigarettes Per Day: 10 Years Smoked: (onset 18yo, 1-1.5ppd x 53yrs, 65pyh - now 1cig/day) e-Cigarette/Vaping Use: Never Used Second Hand Smoke Exposure: Yes Advance Directives Date on File: 07/01/20 service: No Current occupational status: retired Current occupation: RETIRED Current occupational exposures/hazards: No Cognitive needs: Yes (walker) Hearing needs: No Vision needs: No Review of Systems Const All systems reviewed & are unremarkable except as noted in HPI and below Eyes Reports loss of vision (HE IS BLIND IN RIGHT EYE) ENT Reports no additional complaints Card Denies chest pain, Reports irregular heart rhythm (ATRIAL FIBRILLATION) and Denies leg edema Resp Reports as per HPI GI Reports no additional complaints Reports no additional complaints Musc Reports no additional complaints Skin/Breast Reports system reviewed and no additional complaints, except as documented Neuro Reports no additional complaints and Reports loss of vision (HE IS BLIND IN RIGHT EYE) Psych Reports no additional complaints Physical Exam Vital Signs: Last Vital Signs Pulse 90 03/07/25 13:23 BP 110/60 03/07/25 13:23 Pulse Ox 95 03/07/25 13:23 Oxygen Delivery Method Nasal Cannula 03/07/25 13:23 Oxygen Flow Rate 3 03/07/25 13:23 BMI result Body Mass Index 29.8 Const General: comfortable, no acute distress, alert and awake Orientation/consciousness: patient oriented x3 HEENT Head: Yes normal to inspection General nose exam: No nasal polyps present and No nasal discharge present Face and sinus: Yes sinuses nontender Mouth: oropharynx normal Throat: Yes posterior oropharynx normal Eyes General: appearance normal, both eyes and all related structures Visual Chapman: visual chapman abnormal by confrontation (Blind in right eye) Neck Neck: Yes normal visual inspection, Yes no lymphadenopathy, Yes trachea midline and Yes no JVD Thyroid: Thyroid normal Chest Chest palpation & inspection: normal inspection of the chest, normal palpation of entire chest wall and no tenderness Resp Other: Percussion note is hyper-resonant, breath sounds are very distant with prolonged expiratory phase. No wheezes or rhonchi are heard, no crepitations. Cardio Palpation: normal PMI Rate: regular rate Rhythm: regular rhythm Heart sounds: no gallops and no murmurs GI Palpation (GI): Soft to palpation, nontender, No hepatosplenomegaly present and no masses Auscultation: normal bowel sounds Back/Spine/Pelvis Thoracic/Lumbar Spine: thoracic and lumbar spine normal to inspection Skin General skin exam: no rashes or lesions noted Neuro General: patient oriented x3 and no focal motor deficits Cranial nerves: Yes CN's II-XII intact bilaterally Extrem General: Yes normal to inspection, Yes no clubbing, cyanosis or edema and Yes no calf tenderness Psych Appearance: grossly normal and well kempt Speech and movement: Normal speech and movement present Assessment & Plan Assessment & Plan (1) COPD (chronic obstructive pulmonary disease): Comment: Advanced chronic obstructive pulmonary disease. He is prone to have recurrent respiratory infections but since his last visit 3 months ago he has had no recurrence. Code(s): J44.9 - Chronic obstructive pulmonary disease, unspecified Category: Medical Qualifiers: COPD type: unspecified COPD Qualified Code(s): J44.9 - Chronic obstructive pulmonary disease, unspecified Plan: Continue to use budesonide-formoterol 80-4.5 2 puffs b.i.d. . He is getting the generic version through [employer]. ProAir HFA 2 puffs Q 6 hours p.r.n. (2) Personal history of nicotine dependence: Comment: (former smoker 30+PYH, had quit for a while but back to smoking and currently he is smoking half pack a day . He did quit for a while but then went back to smoking. 10 cigarettes a day Code(s): Z87.891 - Personal history of nicotine dependence Category: Medical Plan: We had a good discussion again and urged him to quit smoking or at least cut down the number of cigarettes. He is going to get some smoke and caffeine containing powder from a smoke shop and tight keep it under the tongue, to purge his desire to smoke. (3) Multiple pulmonary nodules: Comment: RECENT LDCT. SHOWS MULTIPLE PULMONARY NODULES UN CHANGED FROM BEFORE. IN ADDITION SHOWING INCREASED BRONCHIAL WALL THICKENING AND PERIBRONCHIAL OPACITIES. Code(s): R91.8 - Other nonspecific abnormal finding of lung field Category: Medical Plan: He will continue to have annual lung screening (4) Exercise hypoxemia: Comment: (Exercise induced Hypoxemia - using portable O2) HE ALSO USES O2 P.R.N. AT HOME, BUT NOT AT NIGHT. Code(s): R09.02 - Hypoxemia Category: Medical Plan: Continue to use O2 as needed. Coding Level of Care Code Est Pt Level 3 (46681) Diagnoses Chronic obstructive pulmonary disease, unspecified COPD type J44.9 COPD type: unspecified COPD Personal history of nicotine dependence Z87.891 Multiple pulmonary nodules R91.8 Exercise hypoxemia R09.02
== END 2025-03-07 13:39 | disposition home or self-care (01) ==
LOC: HO.HPS 13:19
PROVIDERS: PCP Internal Medicine; Visit Provider Internal Medicine
DX: J44.9 Chronic obstructive pulmonary disease, unspecified (principal); Z87.891 Personal history of nicotine dependence; R91.8 Other nonspecific abnormal finding of lung field; R09.02 Hypoxemia
CPT/HCPCS: 99213

== ENCOUNTER → 2025-04-09 23:59 | Outpatient (BNV) | payer MEDICARE, SELFPAY ==
--- NOTE | 2025-04-15 15:45 | MHC.OFFVIS ---
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 Mother No problems noted. Brother Esophageal cancer Social History Household Members: None Housing: Condominium Do you presently have visiting nurse or other home services: No Alcohol intake: current Alcohol intake frequency: other Comment: no telesitter available at this time Patient Tobacco Use Status: Current someday Tobacco user Tobacco use type: Cigarette Cigarette Packs Per Day: 0.5 Cigarettes Per Day: 10 Years Smoked: (onset 18yo, 1-1.5ppd x 53yrs, 65pyh - now 1cig/day) e-Cigarette/Vaping Use: Never Used Second Hand Smoke Exposure: Yes Advance Directives Date on File: 07/01/20 service: No Current occupational status: retired Current occupation: RETIRED Current occupational exposures/hazards: No Cognitive needs: Yes (walker) Hearing needs: No Vision needs: No Office Procedures Cardiac Device Check Cardiac Device Check Details: Date of service- 04/09/2025 ; Battery life 60%; normal lead parameters; AP 2%; MEAT PRESS OPERATOR 99%; no significant arrhythmias. Overall normal device function. [id number] Cardiac Device Interrogation, pacemaker Procedure code (CPT) selection complete Assessment & Plan Assessment & Plan (1) Pacemaker: Onset Date: ~06/2020 Comment: (Biotronik DCPP - placed 07/01/2020) Code(s): Z95.0 - Presence of cardiac pacemaker Category: Medical (2) Paroxysmal atrial fibrillation: Code(s): I48.0 - Paroxysmal atrial fibrillation Category: Medical (3) Complete heart block: Code(s): I44.2 - Atrioventricular block, complete Category: Medical Plan x Coding Level of Care Code Procedure Only Diagnoses Pacemaker Z95.0 Paroxysmal atrial fibrillation I48.0 Complete heart block I44.2 CPT Codes Cardiac Device Check - Cardiac Device 12: [id number] Cardiac Device Interrogation, pacemaker ([id number])
== END ==
PROVIDERS: PCP Internal Medicine; Visit Provider Internal Medicine
DX: I48.0 Paroxysmal atrial fibrillation (principal); Z95.0 Presence of cardiac pacemaker; I44.2 Atrioventricular block, complete
CPT/HCPCS: 93294

== ENCOUNTER 2025-04-19 13:07 | Outpatient (AMB) | payer MEDICARE, SELFPAY ==
--- NOTE | 2025-04-19 13:22 | MHC.OFFVISCO ---
Intake Intake Visit Reasons: Anticoagulation Allergies head and shoulders shampoo Adverse Reaction (Severe, Uncoded 03/07/25 13:39) burn Medication List - Last Reconciled 04/19/25 by Alem Baumann RN albuterol sulfate 90 mcg/actuation 2 puffs inhalation Q6H PRN budesonide-formoterol 80-4.5 mcg/actuation 2 puffs inhalation BID 90 days ipratropium-albuterol 0.5 mg-3 mg(2.5 mg base)/3 mL 3 mL inhalation QID lisinopril 2.5 mg (1/2 x 5 mg) PO DAILY metoprolol succinate ER 100 mg (2 x 50 mg) PO DAILY multivitamin (Daily Multi-Vitamin tablet) 1 tab PO DAILY nebulizers To use every 4 hours Oxygen Home Use As directed spironolactone 12.5 mg (1/2 x 25 mg) PO DAILY warfarin See Protocol Take 5mg orally daily, with dose adjustments as per Anticoagulation Services 90 days Nursing Note INR 1.6 out of therapeutic range Medications and supplements reviewed Patient status: Pt son moved back home helping with daily chores, may have missed a dose, has not eaten usual fruits Medications or supplements: reports no changes Diet: good - has meals on wheels and did not have usual fruits Denies any signs and symptoms of bleeding or clotting or unusual bruising Bleeding, bruising, clotting discussed Nutritional guidance given: avoid greens today and tomorrow Dose: 7.5mg today and 5mg tomorrow then resume 5mg x 4 days/ 2.5mg mwf F/U INR Date: 1 week ?? Patient verbalizing understanding of instructions given. Anti-Coag Initial Assessment Social Hx Patient Tobacco Use Status: Current someday Tobacco user Tobacco use type: Cigarette Smoking packs per day: 0.5 alcohol intake: current Alcohol intake frequency: other Cardiovascular Hx: HTN, CHF, Arrhythmias and Other Lung Disease HX: COPD and Other Blood Disorder Hx: Anemia GI Hx: Diverticulosis Neurological Hx: Other Cancer HX: No Psych. Illness/Depression: No Coding Level of Care Code Est Patient Level 1 Diagnoses Current use of anticoagulant therapy Z79.01 Results AMB INR Fingerstick AMB INR Fingerstick 1.6 Last Edit by Alem Baumann RN on 04/19/25 13:10 manual entry Assessment & Plan Assessment & Plan (1) Current use of anticoagulant therapy: Code(s): Z79.01 - USP (current) use of anticoagulants
[2025-04-19 13:33] LABS: Prothrombin Time Whole Bld POC 18.7 sec (11.1-13.5); ~PT, ~INR - Anti Coag Clinic 1.6 (0.9-1.1)
--- OUTSIDE RECORDS SUMMARY | 2025-04-19 15:59 | XMS_ITS | Clinical Summary ---
Author Organization [facility] Address [address] [place] [address] Care Team Providers Care Computer Hardware Designer Name Role Phone Charbel Poe MD Primary Care Provider [phone] Surgical History Surgery Date Site/Laterality Comments OTHER SURGICAL HISTORY PROCEDURE: DENIES PREVIOUS SURGERY COLONOSCOPY 07/09/2009 PROCEDURE: HISTORICAL COLONOSCOPY; COMMENT: [facility]. Diverticulosis. UPPER GASTROINTESTINAL ENDOSCOPY 07/09/2009 PROCEDURE: [place] UPPER GI ENDOSCOPY PERFORMED; COMMENT: [facility], GI bleed. No significant abnormalities. Medical History Medical History Date Comments Iron deficiency anemia 07/16/2009 DX:Iron d eficiency anemia Tobacco abuse 07/16/2009 DX:Tobacco abuse ; COMMENT: Has tried Wellbutrin, Chantix, hypnotherapy, nicotine patch and gum 10/22 - [employer] unable to contact after 5 attempts Diverticulosis, sigmoid 07/16/2009 DX:Diver ticulosis, sigmoid; COMMENT: Lower GI bleed 06/23. Admitted to [facility]. Colonoscopy 06/23. 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 V24, [facility] V28) 07/16/2009 DX:COPD (chronic o bstructive pulmonary disease) ([facility]); COMMENT: Dr. 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
== END 2025-04-19 13:28 | disposition home or self-care (01) ==
LOC: HO.ACS 13:07
PROVIDERS: PCP Internal Medicine; Visit Provider Internal Medicine Medical Oncology
DX: Z79.01 Long term (current) use of anticoagulants (principal)

== ENCOUNTER → 2025-04-19 13:07 | Outpatient (BNVA) | payer MEDICARE, SELFPAY | PROVIDERS: PCP Internal Medicine; Visit Provider Internal Medicine Medical Oncology | DX: Z79.01 Long term (current) use of anticoagulants (principal) | CPT/HCPCS: 85610; 99211 ==

== ENCOUNTER → 2025-04-23 13:51 | Outpatient (BNV) | payer MEDICARE, SELFPAY | PROVIDERS: PCP Internal Medicine; Visit Provider Internal Medicine | DX: I44.2 Atrioventricular block, complete (principal); Z95.0 Presence of cardiac pacemaker | CPT/HCPCS: 93294 ==

== ENCOUNTER 2025-05-02 13:52 | Outpatient (AMB) | payer MEDICARE, SELFPAY ==
[2025-05-02 14:07] LABS: Prothrombin Time Whole Bld POC 21.5 sec (11.1-13.5); ~PT, ~INR - Anti Coag Clinic 1.8 (0.9-1.1)
--- NOTE | 2025-05-02 14:07 | MHC.OFFVISCO ---
Intake Intake Visit Reasons: Anticoagulation Allergies head and shoulders shampoo Adverse Reaction (Severe, Uncoded 05/02/25 14:00) burn Medication List - Last Reconciled 05/02/25 by Jada Bradshaw RN albuterol sulfate 90 mcg/actuation 2 puffs inhalation Q6H PRN budesonide-formoterol 80-4.5 mcg/actuation 2 puffs inhalation BID 90 days ipratropium-albuterol 0.5 mg-3 mg(2.5 mg base)/3 mL 3 mL inhalation QID lisinopril 2.5 mg (1/2 x 5 mg) PO DAILY metoprolol succinate ER 100 mg (2 x 50 mg) PO DAILY multivitamin (Daily Multi-Vitamin tablet) 1 tab PO DAILY nebulizers To use every 4 hours Oxygen Home Use As directed spironolactone 12.5 mg (1/2 x 25 mg) PO DAILY warfarin See Protocol Take 5mg orally daily, with dose adjustments as per Anticoagulation Services 90 days Nursing Note INR 1.8?? out of therapeutic range 2-3 prev inr 1.6 Medications and supplements reviewed Patient status: amb with walker, on cont oxygen, pt denies missed dose Medications or supplements: no changes Diet: meals on wheels Denies any signs and symptoms of bleeding or clotting or unusual bruising Bleeding, bruising, clotting discussed Nutritional guidance given: no greens for 2 days, eat reds to raise Dose: already took warfarin today, increase tomm to 7.5mg then increase weekly dosing 2.5mg x 2, 5mg x 5 F/U INR Date : pt ref earlier appt than 05/22/25? Patient verbalizing understanding of instructions given. Anti-Coag Initial Assessment Social Hx Patient Tobacco Use Status: Current someday Tobacco user Tobacco use type: Cigarette Smoking packs per day: 0.5 alcohol intake: current Alcohol intake frequency: other Cardiovascular Hx: HTN, CHF, Arrhythmias and Other Lung Disease HX: COPD and Other Blood Disorder Hx: Anemia GI Hx: Diverticulosis Neurological Hx: Other Cancer HX: No Psych. 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
== END 2025-05-02 14:21 | disposition home or self-care (01) ==
LOC: HO.ACS 13:52
PROVIDERS: PCP Internal Medicine; Visit Provider Internal Medicine Medical Oncology
DX: Z79.01 Long term (current) use of anticoagulants (principal)

== ENCOUNTER → 2025-05-02 13:52 | Outpatient (BNVA) | payer MEDICARE, SELFPAY | PROVIDERS: PCP Internal Medicine; Visit Provider Internal Medicine Medical Oncology | DX: Z79.01 Long term (current) use of anticoagulants (principal) | CPT/HCPCS: 85610; 99211 ==

== ENCOUNTER 2025-06-04 12:58 | Outpatient (AMB) | payer MEDICARE, SELFPAY ==
--- NOTE | 2025-06-04 13:31 | A.OFFVIS_ITS ---
Vital Signs 06/04/25 13:32 Height 5 ft 8 in BMI Reason not done Patient refused/unable BP 128/78 Blood Pressure Location Lt brachial Position Sitting Pulse 77 Pulse Source Pulse Oximeter Intake Visit Reasons: 6 mth f/up w/ [employer] Allergies head and shoulders shampoo Adverse Reaction (Severe, Uncoded 06/04/25 14:06) burn Medication List - Last Reconciled 06/04/25 by Bruno Shukla MD albuterol sulfate 90 mcg/actuation 2 puffs inhalation Q6H PRN budesonide-formoterol 80-4.5 mcg/actuation 2 puffs inhalation BID 90 days ipratropium-albuterol 0.5 mg-3 mg(2.5 mg base)/3 mL 3 mL inhalation QID lisinopril 2.5 mg (1/2 x 5 mg) PO DAILY metoprolol succinate ER 100 mg (2 x 50 mg) PO DAILY multivitamin (Daily Multi-Vitamin tablet) 1 tab PO DAILY nebulizers To use every 4 hours Oxygen Home Use As directed spironolactone 12.5 mg (1/2 x 25 mg) PO DAILY warfarin See Protocol Take 5mg orally daily, with dose adjustments as per Anticoagulation Services 90 days HPI Comments Details: Stan returns for follow-up regarding pacemaker and other cardiac issues. Former patient of [facility], but switched to our care. To recall, he has a history of atrial flutter and fibrillation. He underwent ablation in 2018 for the same. In early 2020, admitted for complete heart block. Then underwent permanent pacemaker placement. He has chronic shortness of breath that is just about the same as before. He is also on supplemental oxygen. Overall, he feels just about the same as before. Unfortunately, continues to smoke. Comes in a wheelchair. 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 Mother No problems noted. Brother Esophageal cancer Social History Household Members: None Housing: Condominium Do you presently have visiting nurse or other home services: No Alcohol intake: current Alcohol intake frequency: other Comment: no telesitter available at this time Patient Tobacco Use Status: Current someday Tobacco user Tobacco use type: Cigarette Cigarette Packs Per Day: 0.5 Cigarettes Per Day: 10 Years Smoked: (onset 18yo, 1-1.5ppd x 53yrs, 65pyh - now 1cig/day) e-Cigarette/Vaping Use: Never Used Second Hand Smoke Exposure: Yes Advance Directives Date on File: 07/01/20 service: No Current occupational status: retired Current occupation: RETIRED Current occupational exposures/hazards: No Cognitive needs: Yes (walker) Hearing needs: No Vision needs: No Review of Systems Const Denies weakness ENT Denies dizziness Card Denies chest pain, Denies chest pain with activity, Denies syncope, Denies rapid heart rate, Denies pedal edema, Denies edema, Denies leg edema, Denies lightheadedness, Denies palpitations, Denies dyspnea, Denies dyspnea on exertion and Denies orthopnea Resp Denies cough, Denies dyspnea and Denies dyspnea on exertion GI Denies hematochezia and Denies change in stool character Musc Denies abnormal gait, Denies muscle cramps, Denies muscle weakness, Denies numbness, Denies radiating pain into limb and Denies tingling Neuro Denies abnormal gait, Denies dizziness, Denies syncope, Denies numbness, Denies tingling and Denies weakness Endo Denies palpitations Physical Exam Vital Signs: Last Vital Signs Pulse 77 06/04/25 13:32 BP 128/78 06/04/25 13:32 Const General: comfortable and no acute distress Orientation/consciousness: patient oriented x3 HEENT Other: Unremarkable Head: Yes normal to inspection Neck Neck: Yes normal visual inspection Chest Chest palpation & inspection: normal inspection of the chest Resp Auscultation: wheezes and diminished lung sounds Cardio Palpation: normal PMI Heart sounds: S1 normal heart sound present, S2 normal heart sound present, no gallops, no murmurs and no rubs GI Palpation (GI): Soft to palpation Back/Spine/Pelvis Other: unremarkable Skin General skin exam: no rashes or lesions noted Neuro General: patient oriented x3 Extrem General: Yes normal to inspection Psych Mental Status: mental status grossly normal Office Procedures Cardiac Device Check Cardiac Device Check Details: Pacemaker interrogated today. Dual-chamber device, programmed DDD. Battery status 5 years 11 months. Normal lead parameters. Pacing in the atrium 2%. Ventricles 99%. 17 beat atrial flutter and 13 beat NSVT. Overall, normal device function. [id number] Cardiac Device Check, pacemaker dual lead Procedure code (CPT) selection complete Results AMB INR Fingerstick AMB INR Fingerstick 1.1 Last Edit by Alem Baumann RN on 06/04/25 14:11 MANUAL ENTRY Assessment & Plan Assessment & Plan (1) Paroxysmal atrial fibrillation: Code(s): I48.0 - Paroxysmal atrial fibrillation Category: Medical Plan: Status post ablation of atrial fibrillation and flutter in 2020. He underwent pulmonary vein isolation as well as cavo- tricuspid isthmus ablation. No recent issues. Continue beta blockers, warfarin. (2) Complete heart block: Code(s): I44.2 - Atrioventricular block, complete Category: Medical Plan: Status post pacemaker implantation. (3) Chronic systolic (congestive) heart failure: Code(s): I50.22 - Chronic systolic (congestive) heart failure Category: Medical Plan: Per last echocardiogram, LVEF 45-50%. Has been as low as 25-30% in the past. Cardiac catheterization-minimal irregularities in LAD/circumflex. Normal left main and RCA. Normal LVEDP. Remains on Toprol-XL, lisinopril, spironolactone. (4) COPD (chronic obstructive pulmonary disease): Code(s): J44.9 - Chronic obstructive pulmonary disease, unspecified Category: Medical Qualifiers: COPD type: unspecified COPD Qualified Code(s): J44.9 - Chronic obstructive pulmonary disease, unspecified Plan: Suspected to have very severe degree of COPD. Also on supplemental oxygen. Plan Discussion Notes I reviewed the patient's current status and medications. I advised him to continue his lisinopril, metoprolol, and spironolactone for his heart condition. We discussed his smoking, and I affirmed that quitting would be very beneficial for his health. The plan is to see him back for a follow-up visit in six months. Patient was informed and verbally consented to the use of an ambient scribe for clinic note documentation during this visit. Patient Instructions: - Continue to take your heart medications as prescribed, which include lisinopril, metoprolol, and spironolactone. - It is very important that you stop smoking. You have expressed a plan to quit at the start of the new year. - Continue using your oxygen as advised. - Please schedule a follow-up appointment to be seen again in six months. Coding Level of Care Code Est Pt Level 4 (70360) Add On Problem Visit Only Diagnoses Paroxysmal atrial fibrillation I48.0 Complete heart block I44.2 Chronic systolic (congestive) heart failure I50.22 Chronic obstructive pulmonary disease, unspecified COPD type J44.9 COPD type: unspecified COPD CPT Codes Cardiac Device Check - Cardiac Device 2: 74338-OR Cardiac Device Check, pacemaker dual lead ([id number])
[2025-06-04 13:32] VITALS: BP 128/78; PULSE 77
--- OUTSIDE RECORDS SUMMARY | 2025-06-04 16:14 | XMS_ITS | Clinical Summary ---
Author Organization [employer] [facility] Address [address] [place] [address] Care Team Providers Care Fire Tender Name Role Phone Charbel Poe MD Primary Care Provider [phone] Surgical History Surgery Date Site/Laterality Comments OTHER SURGICAL HISTORY PROCEDURE: DENIES PREVIOUS SURGERY COLONOSCOPY 07/09/2009 PROCEDURE: HISTORICAL COLONOSCOPY; COMMENT: [facility]. Diverticulosis. UPPER GASTROINTESTINAL ENDOSCOPY 07/09/2009 PROCEDURE: DE UPPER GI ENDOSCOPY PERFORMED; COMMENT: [facility], GI bleed. No significant abnormalities. Medical History Medical History Date Comments Iron deficiency anemia 07/16/2009 DX:Iron d eficiency anemia Tobacco abuse 07/16/2009 DX:Tobacco abuse ; COMMENT: Has tried Wellbutrin, Chantix, hypnotherapy, nicotine patch and gum 10/22 - [employer] unable to contact after 5 attempts Diverticulosis, sigmoid 07/16/2009 DX:Diver ticulosis, sigmoid; COMMENT: Lower GI bleed 06/23. Admitted to [facility]. Colonoscopy 06/23. 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
== END 2025-06-04 13:47 | disposition home or self-care (01) ==
LOC: HO.HCS 12:59
PROVIDERS: PCP Internal Medicine; Visit Provider Internal Medicine
DX: I48.0 Paroxysmal atrial fibrillation (principal); I44.2 Atrioventricular block, complete; I50.22 Chronic systolic (congestive) heart failure; J44.9 Chronic obstructive pulmonary disease, unspecified
CPT/HCPCS: 93280; 99214; G2211

== ENCOUNTER → 2025-06-04 12:58 | Outpatient (BNVA) | payer MEDICARE, SELFPAY | PROVIDERS: PCP Internal Medicine; Visit Provider Internal Medicine | DX: Z45.010 Encounter for checking and testing of cardiac pacemaker pulse generator [battery] (principal); I11.0 Hypertensive heart disease with heart failure; I48.0 Paroxysmal atrial fibrillation; I44.2 Atrioventricular block, complete; I50.22 Chronic systolic (congestive) heart failure; J44.9 Chronic obstructive pulmonary disease, unspecified; Z79.01 Long term (current) use of anticoagulants; Z51.81 Encounter for therapeutic drug level monitoring | CPT/HCPCS: 85610; 93280; 99211; 99212 ==

== ENCOUNTER 2025-06-04 13:52 | Outpatient (AMB) | payer MEDICARE, SELFPAY ==
--- NOTE | 2025-06-04 14:26 | MHC.OFFVISCO ---
Intake Intake Visit Reasons: Anticoagulation Allergies head and shoulders shampoo Adverse Reaction (Severe, Uncoded 06/04/25 14:06) burn Medication List - Last Reconciled 06/04/25 by Alem Baumann RN albuterol sulfate 90 mcg/actuation 2 puffs inhalation Q6H PRN budesonide-formoterol 80-4.5 mcg/actuation 2 puffs inhalation BID 90 days ipratropium-albuterol 0.5 mg-3 mg(2.5 mg base)/3 mL 3 mL inhalation QID lisinopril 2.5 mg (1/2 x 5 mg) PO DAILY metoprolol succinate ER 100 mg (2 x 50 mg) PO DAILY multivitamin (Daily Multi-Vitamin tablet) 1 tab PO DAILY nebulizers To use every 4 hours Oxygen Home Use As directed spironolactone 12.5 mg (1/2 x 25 mg) PO DAILY warfarin See Protocol Take 5mg orally daily, with dose adjustments as per Anticoagulation Services 90 days Nursing Note INR 1.1 out of therapeutic range Medications and supplements reviewed Patient status: Pt states he had a cold x 2 weeks - sounds very congested today with loose wet cough wearing O2 - he just came from cardiology office and reports no changes Medications or supplements: no change Diet: same Denies any signs and symptoms of bleeding or clotting or unusual bruising Bleeding, bruising, clotting discussed Nutritional guidance given:avoid all greens x 4 days Dose: 7.5mg today then resume increased dose of 5mg x 5 days/ 2.5mg x 2 days F/U INR Date : 1 week - refuses sooner appt ?? Go to ER for any c/p or increase sob or stroke symptoms - it was explained to him that his INR is very low and he is at risk of clotting or stroke with low INR Patient verbalizing understanding of instructions given this note being sent to PCP and will have f/u call. Anti-Coag Initial Assessment Social Hx Patient Tobacco Use Status: Current someday Tobacco user Tobacco use type: Cigarette Smoking packs per day: 0.5 alcohol intake: current Alcohol intake frequency: other Cardiovascular Hx: HTN, CHF, Arrhythmias and Other Lung Disease HX: COPD and Other Blood Disorder Hx: Anemia GI Hx: Diverticulosis Neurological Hx: Other Cancer HX: No Psych. Illness/Depression: No Coding Level of Care Code Est Patient Level 1 Diagnoses Current use of anticoagulant therapy Z79.01 Results AMB INR Fingerstick AMB INR Fingerstick 1.1 Last Edit by Alem Baumann RN on 06/04/25 14:11 MANUAL ENTRY Assessment & Plan Assessment & Plan (1) Current use of anticoagulant therapy: Code(s): Z79.01 - skilled nursing (current) use of anticoagulants
--- OUTSIDE RECORDS SUMMARY | 2025-06-04 17:22 | XMS_ITS | Encounter Summary ---
Author Organization [facility] Prior to 2024 Address [address] [place] [address] Care Team Providers Care Cooperative Education Director Name Role Phone Sudarshan Deluca Primary Care Provider Unav ailable Shin Núñez MD Primary Care Provider [phone] Azalia Esposito MD Primary Care Provider Unavailable Azalia Esposito MD Primary Care Provider Unavailable Shaw Cervantes MD Unavailable [phone] Ryan Jenkins MD Unavailable [phone] Rosalva Stern PA-C Unavailable Charbel Poe Primary Care Provider Unavailabl e Encounter Details Date Type Department Care Team Description 07/08/2009 Hospital Medical Records [address] [place] [address] Santana Louis MD Social History Tobacco Use [...] on filedocumented in this encounter Care Teams Cooperative Education Director Relationship Specialty Start Date End Date Sudarshan Deluca PCP - General 05/06/10 12/30/14 Shin Núñez MD [address] [place] [address] PCP - General 07/08/09 05/05/10 Timmy-Azalia Recinos MD [address] [place] [address] PCP - General Internal Medicine 12/02/15 02/20/21 Azalia Esposito MD [address] [place] [address] PCP - General 12/31/14 12/01/15 Charbel Poe [address] [place] [address] PCP - General Internal Medicine 02/21/21 Shaw Cervantes MD [address] [place] [address] Specialist Cardiovascular Disease 02/18/21 Ryan Jenkins MD [address] [place] [address] Specialist Cardiology 02/18/21 Rosalva Stern PA-C [address] [place] [address] Specialist Cardiology 02/18/21 documented as of this encounter
--- OUTSIDE RECORDS SUMMARY | 2025-06-04 17:22 | XMS_ITS | Encounter Summary ---
Author Organization [employer] [facility] Prior to 2024 Address [address] [place] [address] Care Team Providers Care Diversional Therapist Name Role Phone Sudarshan Deluca Primary Care Provider Unav ailable Shin Núñez MD Primary Care Provider [phone] Azalia Esposito MD Primary Care Provider Unavailable Azalia Esposito MD Primary Care Provider Unavailable Shaw Cervantes MD Unavailable [phone] Ryan Jenkins MD Unavailable [phone] Rosalva Stern PA-C Unavailable Charbel Poe Primary Care Provider Unavailabl e Encounter Details Date Type Department Care Team Description 07/11/2009 Hospital Medical Records [address] [place] [id number] Onesimo Rockwell Social History Tobacco Use Types [...] on filedocumented in this encounter Care Teams Diversional Therapist Relationship Specialty Start Date End Date Sudarshan Deluca PCP - General 05/06/10 12/30/14 Shin Núñez MD [address] [place] [address] PCP - General 07/08/09 05/05/10 Azalia Esposito MD [address] [place] [address] PCP - General Internal Medicine 12/02/15 02/20/21 Azalia Esposito MD [address] [place] [address] PCP - General 12/31/14 12/01/15 Charbel Poe [address] [place] [address] PCP - General Internal Medicine 02/21/21 Shaw Cervantes MD [address] [place] [address] Specialist Cardiovascular Disease 02/18/21 Ryan Jenkins MD [address] [place] [address] Specialist Cardiology 02/18/21 Rosalva Stern PA-C [address] [place] [address] Specialist Cardiology 02/18/21 documented as of this encounter
--- OUTSIDE RECORDS SUMMARY | 2025-06-04 17:22 | XMS_ITS | Encounter Summary ---
Author Organization [facility] [facility] Prior to 2024 Address [address] [place] [address] Care Team Providers Care Harbor Patrol Police Name Role Phone Timmy-Azalia Recinos MD Primary Care Provider Unavailable Shaw Cervantes MD Unavailable [phone] Ryan Jenkins MD Unavailable [phone] Rosalva Stern PA-C Unavailable Charbel Poe Primary Care Provider Unavailabl e Encounter Details Date Type Department Care Team Description 02/05/2016 Business Development Associate Report Medical Records [address] [place] [address] Abstract, Provider Social History Tobacco Use Types [...] on filedocumented in this encounter Care Teams [employer] Police Relationship Specialty Start Date End Date Azalia Esposito MD PCP - General Internal Medicine 12/02/1502/20/21 Charbel Poe [address] [address] PCP - General Internal Medicine 02/21/21 Shaw Cervantes MD [address] [place] [address] Specialist Cardiovascular Disease 02/18/21 Ryan Jenkins MD [address] [place] [address] Specialist Cardiology 02/18/21 Rosalva Stern PA-C [address] [place] [address] Specialist Cardiology 02/18/21 documented as of this encounter
--- OUTSIDE RECORDS SUMMARY | 2025-06-04 17:22 | XMS_ITS | Encounter Summary ---
Author Organization [employer] [facility] Prior to 2024 Address [address] [place] [address] Care Team Providers Care Apprenticeship Consultant Name Role Phone Azalia Esposito MD Primary Care Provider Unavailable Shaw Cervantes MD Unavailable [phone] Ryan Jenkins MD Unavailable [phone] Rosalva Stern PA-C Unavailable Charbel Poe Primary Care Provider Unavailabl e Reason for Visit * Reason Onset Date Comments Form 09/11/2019 [facility] 08/31/2019- Encounter Details Date Type Department Care Team Description 09/11/2019 Telephone Adult Medicine - [address] [address] Azalia Esposito MD Form ([facility] 08/31/2019-10/29/2019) Social History Tobacco Use [...] DATE RECEIVED:09/11/2019 AGENCY:Roxanna Lepe CERT DATES:08/30-10/29/2019 FAX NUMBER:[phone] LOCATION OF [facility]:Call center documented in this encounter [...] in remission Nondependent alcohol abuse, in remission ocean transportation intermediary (current) use of inhaled steroids Dependence on supplemental oxygen ocean transportation intermediary (current) use of anticoagulants Long-term (current) use of anticoagulants documented in this encounter Care Teams Apprenticeship Consultant Relationship Specialty Start Date End Date [place]-Azalia Recinos MD PCP - General Internal Medicine 12/02/1502/20/21 Charbel Poe [address] [place] [address] PCP - General Internal Medicine 02/21/21 Shaw Cervantes MD [address] [place] [address] Specialist Cardiovascular Disease 02/18/21 Ryan Jenkins MD [address] [place] [address] Specialist Cardiology 02/18/21 Rosalva Stern PA-C [address] [place] [address] Specialist Cardiology 02/18/21 documented as of this encounter
--- OUTSIDE RECORDS SUMMARY | 2025-06-04 17:22 | XMS_ITS | Encounter Summary ---
Author Organization [employer] [facility] Prior to 2024 Address [address] [place] [address] Care Team Providers Care Range Aide Name Role Phone Timmy-Azalia Recinos MD Primary Care Provider Unavailable Shaw Cervantes MD Unavailable [phone] Ryan Jenkins MD Unavailable [phone] Rosalva Stern PA-C Unavailable Charbel Poe Primary Care Provider Unavailabl e Encounter Details Date Type Department Care Team Description 12/13/2015 [employer] Wirer Report Medical Records [address] [place] [address] Abstract, Provider Social History Tobacco Use Types [...] on filedocumented in this encounter Care Teams Range Aide Relationship Specialty Start Date End Date Azalia Esposito MD PCP - General Internal Medicine 12/02/1502/20/21 Charbel Poe [address] [address] PCP - General Internal Medicine 02/21/21 Shaw Cervantes MD [address] [place] [address] Specialist Cardiovascular Disease 02/18/21 Ryan Jenkins MD [address] [place] [address] Specialist Cardiology 02/18/21 Rosalva Stern PA-C [address] [place] [address] Specialist Cardiology 02/18/21 documented as of this encounter
--- OUTSIDE RECORDS SUMMARY | 2025-06-04 17:22 | XMS_ITS | Encounter Summary ---
Author Organization [facility] Prior to 2024 Address [address] [place] [address] Care Team Providers Care Phd Internship Name Role Phone Azalia Esposito MD Primary Care Provider Unavailable Azalia Esposito MD Primary Care Provider Unavailable Shaw Cervantes MD Unavailable [phone] Ryan Jenkins MD Unavailable [phone] Rosalva Stern PA-C Unavailable Charbel Poe Primary Care Provider Unavailabl e Encounter Details Date Type Department Care Team Description 10/09/2015 Senior Wind Energy Consultant Report Medical Records [address] [place] [address] Dept., [facility] Occupational & Pt Social History [...] on filedocumented in this encounter Care Teams Phd Internship Relationship Specialty Start Date End Date Azalia Esposito MD PCP - General Internal Medicine 12/02/1502/20/21 [place]-Azalia Recinos MD PCP - General 12/31/1411/30 Charbel Poe [address] [place] [address] PCP - General Internal Medicine 02/21/21 Shaw Cervantes MD [address] [place] [address] Specialist Cardiovascular Disease 02/18/21 Ryan Jenkins MD [address] [place] [address] Specialist Cardiology 02/18/21 Rosalva Stern PA-C [address] [place] [address] Specialist Cardiology 02/18/21 documented as of this encounter
--- OUTSIDE RECORDS SUMMARY | 2025-06-04 17:22 | XMS_ITS | Encounter Summary ---
Author Organization [employer] [facility] Prior to 2024 Address [address] [place] [address] Care Team Providers Care Staff Radiologist Name Role Phone Azalia Esposito MD Primary Care Provider Unavailable Azalia Esposito MD Primary Care Provider Unavailable Shaw Cervantes MD Unavailable [phone] Ryan Jenkins MD Unavailable [phone] Rosalva Stern PA-C Unavailable Charbel Poe Primary Care Provider Unavailabl e Encounter Details Date Type Department Care Team Description 11/13/2015 Librarian Report Medical Records [address] [place] [address] Abstract, Provider Social History Tobacco Use Types [...] on filedocumented in this encounter Care Teams Staff Radiologist Relationship Specialty Start Date End Date Azalia Esposito MD PCP - General Internal Medicine 12/02/1502/20/21 Azalia Esposito MD PCP - General 12/31/1411/30 Charbel Poe [address] [place] [address] PCP - General Internal Medicine 02/21/21 Shaw Cervantes MD [address] [place] [address] Specialist Cardiovascular Disease 02/18/21 Ryan Jenkins MD [address] [place] [address] Specialist Cardiology 02/18/21 Rosalva Stern PA-C [address] [place] [address] Specialist Cardiology 02/18/21 documented as of this encounter
--- OUTSIDE RECORDS SUMMARY | 2025-06-04 17:22 | XMS_ITS | Encounter Summary ---
Author Organization [employer] [facility] Prior to 2024 Address [address] [place] [address] Care Team Providers Care Operating Engineer Name Role Phone Azalia Esposito MD Primary Care Provider Unavailable Shaw Cervantes MD Unavailable [phone] Ryan Jenkins MD Unavailable [phone] Rosalva Stern PA-C Unavailable Charbel Poe Primary Care Provider Unavailabl e Reason for Visit * Reason Onset Date Comments VNA Call 09/15/2019 Encounter Details Date Type Department Care Team Description 09/15/2019 Telephone Adult Medicine - [address] [address] Azalia Esposito MD VNA Call Social History [...] 4:52 PM EDT Spoke with Marjorie at [facility] and advised her of message. * Telephone Encounter - Azalia Esposito MD - 09/15/2019 3:47 PM EDT If his weight goes up 4 lbs or more, they should let us know * Telephone Encounter - Prince Boyd - 09/15/2019 3:18 PM EDT VNA CALL Which [facility] office is calling? [facility] Full name of caller: The caller is [...] on filedocumented in this encounter Care Teams Operating Engineer Relationship Specialty Start Date End Date Azalia Esposito MD PCP - General Internal Medicine 12/02/1502/20/21 Charbel Poe [address] [facility] [address] [place] [address] PCP - General Internal Medicine 02/21/21 Shaw Cervantes MD [address] [place] [address] Specialist Cardiovascular Disease 02/18/21 Ryan Jenkins MD [address] [place] [address] Specialist Cardiology 02/18/21 Rosalva Stern PA-C [address] [place] [address] Specialist Cardiology 02/18/21 documented as of this encounter
--- OUTSIDE RECORDS SUMMARY | 2025-06-04 17:22 | XMS_ITS | Encounter Summary ---
Author Organization [employer] [facility] Prior to 2024 Address [address] [place] [address] Care Team Providers Care Egg Caser Name Role Phone Sudarshan Deluca Primary Care Provider Unav ailable Shin Núñez MD Primary Care Provider [phone] Azalia Esposito MD Primary Care Provider Unavailable Azalia Esposito MD Primary Care Provider Unavailable Shaw Cervantes MD Unavailable [phone] Ryan Jenkins MD Unavailable [phone] Rosalva Stern PA-C Unavailable Charbel Poe Primary Care Provider Unavailabl e Encounter Details Date Type Department Care Team Description 07/09/2009 Hospital Medical Records [address] [place] [address] Jason Recinos MD Social History Tobacco Use [...] on filedocumented in this encounter Care Teams Egg Caser Relationship Specialty Start Date End Date Sudarshan Deluca PCP - General 05/06/10 12/30/14 Shin Núñez MD [address] [place] [address] PCP - General 07/08/09 05/05/10 Timmy-Azalia Recinos MD [address] [place] [address] PCP - General Internal Medicine 12/02/15 02/20/21 Azalia Esposito MD [address] [place] [address] PCP - General 12/31/14 12/01/15 Charbel Poe [address] [place] [address] PCP - General Internal Medicine 02/21/21 Shaw Cervantes MD [address] [place] [address] Specialist Cardiovascular Disease 02/18/21 Ryan Jenkins MD [address] [place] [address] Specialist Cardiology 02/18/21 Rosalva Stern PA-C [address] [place] [address] Specialist Cardiology 02/18/21 documented as of this encounter
--- OUTSIDE RECORDS SUMMARY | 2025-06-04 17:23 | XMS_ITS | Encounter Summary ---
Author Organization [email or web address] [facility] Prior to 2024 Address [address] [place] [address] Care Team Providers Care Wire Mill Rover Name Role Phone hSaw Cervantes MD Unavailable [phone] Ryan Jenkins MD Unavailable Rosalva Stern PA-C Unavailable Charbel Poe Primary Care Provider Unavailabl e Encounter Details Date Type Department Care Team Description 05/15/2022 Final Installer Inspector Report Medical Records [address] [place] [address] Agnieszka Zapata MD [address] [place] [address] [address] [place], [place] [id number] Social History Tobacco Use Types Packs/Day Years [...] on filedocumented in this encounter Care Teams Wire Mill Rover Relationship Specialty Start Date End Date Charbel Poe [address] [place] [address] PCP - General Internal Medicine 02/21/21 Shaw Cervantes MD 2 [facility] [address] [place], [place] [address] Specialist Cardiovascular Disease 02/18/21 Ryan Jenkins MD [address] [place] [address] Specialist Cardiology 02/18/21 Rosalva Stern PA-C [address] [place] [address] Specialist Cardiology 02/18/21 documented as of this encounter
--- OUTSIDE RECORDS SUMMARY | 2025-06-04 17:23 | XMS_ITS | Encounter Summary ---
Author Organization [facility] Prior to 2024 Address [address] [place] [address] Care Team Providers Care Outside Collector Name Role Phone Azalia Esposito MD Primary Care Provider Unavailable Shaw Cervantes MD Unavailable [phone] Ryan Jenkins MD Unavailable [phone] Rosalva Stern PA-C Unavailable Charbel Poe Primary Care Provider Unavailabl e Encounter Details Date Type Department Care Team Description 10/05/2019 Pathology Lab Technician Report Medical Records [address] [place] [address] Shaw Cervantes MD [address] [place] [address] Social History Tobacco Use Types Packs/Day Years [...] on filedocumented in this encounter Care Teams Outside Collector Relationship Specialty Start Date End Date Azalia Esposito MD PCP - General Internal Medicine 12/02/1502/20/21 Charbel Poe [address] [place] [address] PCP - General Internal Medicine 02/21/21 Shaw Cervantes MD [address] [place] [address] Specialist Cardiovascular Disease 02/18/21 Ryan Jenkins MD [address] [place] [address] Specialist Cardiology 02/18/21 Rosalva Stern PA-C [address] [place] [address] Specialist Cardiology 02/18/21 documented as of this encounter
--- OUTSIDE RECORDS SUMMARY | 2025-06-04 17:23 | XMS_ITS | Encounter Summary ---
Author Organization [employer] [facility] Prior to 2024 Address [address] [place] [address] Care Team Providers Care Oyster Bed Worker Name Role Phone Azalia Esposito MD Primary Care Provider Unavailable Shaw Cervantes MD Unavailable [phone] Ryan Jenkins MD Unavailable [phone] Rosalva Stern PA-C Unavailable Charbel Poe Primary Care Provider Unavailabl e Reason for Visit * Reason Onset Date Comments Faxed Order 11/29/2019 [facility] Encounter Details Date Type Department Care Team Description 11/29/2019 Telephone Adult Medicine [address] [address] Azalia Esposito MD Faxed Order ([facility] [...] Miscellaneous Notes * Telephone Encounter - Dee Carrillo - 11/29/2019 2:58 PM EDT Faxed order received by [facility] sharif in providers bin for signature, fax back to [phone] documented in this encounter Plan of Treatment Not on file documented as of this encounter Visit Diagnoses Not on filedocumented in this encounter Care Teams Oyster Bed Worker Relationship Specialty Start Date End Date [place]-Azalia Recinos MD PCP - General Internal Medicine 12/02/1502/20/21 Charbel Poe [address] [place] [address] PCP - General Internal Medicine 02/21/21 Shaw Cervantes MD [address] [place] [address] Specialist Cardiovascular Disease 02/18/21 Ryan Jenkins MD [address] [place] [address] Specialist Cardiology 02/18/21 Rosalva Stern PA-C [address] [place] [address] Specialist Cardiology 02/18/21 documented as of this encounter
--- OUTSIDE RECORDS SUMMARY | 2025-06-04 17:23 | XMS_ITS | Encounter Summary ---
Author Organization [employer] [facility] Prior to 2024 Address [address] [place] [address] Care Team Providers Care Thread Roller Name Role Phone Timmy-Azalia Recinos MD Primary Care Provider Unavailable Shaw Cervantes MD Unavailable [phone] Ryan Jenkins MD Unavailable [phone] Rosalva Stern PA-C Unavailable Charbel Poe Primary Care Provider Unavailabl e Encounter Details Date Type Department Care Team Description 08/25/2019 Hospital Medical Records [address] [place] [address] [address] Me[place] [address] [place] [address] Social History Tobacco Use Types Packs/Day Years [...] on filedocumented in this encounter Care Teams Thread Roller Relationship Specialty Start Date End Date Azalia Esposito MD PCP - General Internal Medicine 12/02/1502/20/21 Charbel Poe [address] [address] PCP - General Internal Medicine 02/21/21 Shaw Cervantes MD [address] [place] [address] Specialist Cardiovascular Disease 02/18/21 Ryan Jenkins MD [address] [place] [address] Specialist Cardiology 02/18/21 Rosalva Stern PA-C [address] [place] [address] Specialist Cardiology 02/18/21 documented as of this encounter
--- OUTSIDE RECORDS SUMMARY | 2025-06-04 17:23 | XMS_ITS | Encounter Summary ---
Author Organization [employer] [facility] Prior to 2024 Address [address] [place] [address] Care Team Providers Care Product Development Actuary Name Role Phone [place]-Azalia Recinos MD Primary Care Provider Unavailable Shaw Cervantes MD Unavailable [phone] Ryan Jenkins MD Unavailable [phone] Rosalva Stern PA-C Unavailable Charbel Poe Primary Care Provider Unavailabl e Encounter Details Date Type Department Care Team Description 03/17/2018 Orders Only Pulmonology - [place] [address] [facility] [address] [place] [address] Miky Lockett MD [address] [facility] [address] [place] [address] Stage 3 severe COPD by [...] Procedure Name Priority Date/Time Associated Diagnosis Comments GA NONINVASIVE EAR/PULSE OXIMETRY OVERNIGHT MONITOR Routine 02/14/2018 [...] (HCC) documented in this encounter Care Teams Product Development Actuary Relationship Specialty Start Date End Date [place]-Azalia Recinos MD PCP - General Internal Medicine 12/02/1502/20/21 Charbel Poe [address] [facility] [address] [place] [address] PCP - General Internal Medicine 02/21/21 Shaw Cervantes MD [address] [place] [address] Specialist Cardiovascular Disease 02/18/21 Ryan Jenkins MD [address] [place] [address] Specialist Cardiology 02/18/21 Rosalva Stern PA-C [address] [facility] [address] [place] [address] Specialist Cardiology 02/18/21 documented as of this encounter
--- OUTSIDE RECORDS SUMMARY | 2025-06-04 17:23 | XMS_ITS | Encounter Summary ---
Author Organization [facility] Prior to 2024 Address [address] [place] [address] Care Team Providers Care Analytical Consultant Name Role Phone Shaw Cervantes MD Unavailable [phone] Ryan Jenkins MD Unavailable [phone] Rosalva Stern PA-C Unavailable Charbel Poe Primary Care Provider Unavailabl e Reason for Visit * Reason Onset Date Comments E-prescribe Rx Request 06/10/2021 incoming Fax [facility] Pharmacy Lopressor Encounter Details Date Type Department Care Team Description 06/10/2021 Refill Cardio PVC POC 154 [address] [facility] [address] [place] [address] Rosalva Stern PA-C [address] [place] [address] E-prescribe Rx Request (incoming Fax [facility] Pharmacy Lopressor ) Social History Tobacco [...] 06/10/2021 10:21 AM EST ASTRID 02/2020 With LM. Zapata for f/u . Please arrange f/u appt documented in this encounter Plan of Treatment Not on file documented as of this encounter Visit Diagnoses Not on filedocumented in this encounter Care Teams Analytical Consultant Relationship Specialty Start Date End Date Charbel Poe [address] [facility] [address] [place] [address] PCP - General Internal Medicine 02/21/21 Shaw Cervantes MD [address] [place] [address] Specialist Cardiovascular Disease 02/18/21 Ryan Jenkins MD [address] [place] [address] Specialist Cardiology 02/18/21 Roslava Stern PA-C [address] [facility] [address] [place] [address] Specialist Cardiology 02/18/21 documented as of this encounter
--- OUTSIDE RECORDS SUMMARY | 2025-06-04 17:23 | XMS_ITS | Encounter Summary ---
Author Organization [employer] [facility] Prior to 2024 Address [address] [place] [address] Care Team Providers Care Pca Name Role Phone Timmy-Azalia Recinos MD Primary Care Provider Unavailable Shaw Cervantes MD Unavailable [phone] Ryan Jenkisn MD Unavailable [phone] Rosalva Stern PA-C Unavailable Charbel Peo Primary Care Provider Unavailabl e Encounter Details Date Type Department Care Team Description 11/07/2019 Hospital Medical Records [address] [place], [place] [address] [place] [address] Social History Tobacco Use Types Packs/Day Years [...] on filedocumented in this encounter Care Teams Pca Relationship Specialty Start Date End Date Azalia Esposito MD PCP - General Internal Medicine 12/02/1502/20/21 Charbel Poe [address] [place] [address] PCP - General Internal Medicine 02/21/21 Shaw Cervantes MD Medical [facility] [address] [place] [address] Specialist Cardiovascular Disease 02/18/21 Ryan Jenkins MD [address] [place] [address] Specialist Cardiology 02/18/21 Rosalva Stern PA-C [address] [facility] [address] [place] [address] Specialist Cardiology 02/18/21 documented as of this encounter
--- OUTSIDE RECORDS SUMMARY | 2025-06-04 17:23 | XMS_ITS | Encounter Summary ---
Author Organization [facility] [facility] Prior to 2024 Address [address] [place] [address] Care Team Providers Care Seeing Eye Dog Trainer Name Role Phone Timmy-Azalia Recinos MD Primary Care Provider Unavailable Shaw Cervantes MD Unavailable [phone] Ryan Jenkins MD Unavailable [phone] Rosalva Stern PA-C Unavailable Charbel Poe Primary Care Provider Unavailabl e Encounter Details Date Type Department Care Team Description 03/11/2020 Storeroom Keeper Report Medical Records [address] [place] [address] Rosalva Stern PA-C [address] [place] [id number] Social History Tobacco Use Types Packs/Day Years [...] on filedocumented in this encounter Care Teams Seeing Eye Dog Trainer Relationship Specialty Start Date End Date Azalia Esposito MD PCP - General Internal Medicine 12/02/1502/20/21 Charbel Poe [address] [address] PCP - General Internal Medicine 02/21/21 Shaw Cervantes MD [address] [place] [address] Specialist Cardiovascular Disease 02/18/21 Ryan Jenkins MD [address] [place] [address] Specialist Cardiology 02/18/21 Rosalva Stern PA-C [address] [place] [address] Specialist Cardiology 02/18/21 documented as of this encounter
--- OUTSIDE RECORDS SUMMARY | 2025-06-04 17:23 | XMS_ITS | Encounter Summary ---
Author Organization [employer] [facility] Prior to 2024 Address [address] [place] [address] Care Team Providers Care Docketing Specialist Name Role Phone Azalia Esposito MD Primary Care Provider Unavailable Azalia Esposito MD Primary Care Provider Unavailable Shaw Cervantes MD Unavailable [phone] Ryan Jenkins MD Unavailable [phone] Rosalva Stern PA-C Unavailable Charbel Poe Primary Care Provider Unavailabl e Encounter Details Date Type Department Care Team Description 07/18/2015 Waste Paper [place] Operator Report Medical Records [address] [place] [id number] [place] [address] Social History Tobacco Use Types Packs/Day Years [...] on filedocumented in this encounter Care Teams Docketing Specialist Relationship Specialty Start Date End Date Azalia Esposito MD PCP - General Internal Medicine 12/02/1502/20/21 Azalia Esposito MD PCP - General 12/31/1411/30 Charbel Poe [address] [place] [address] PCP - General Internal Medicine 02/21/21 Shaw Cervantes MD [address] [place] [address] Specialist Cardiovascular Disease 02/18/21 Ryan Jenkins MD [address] [place] [address] Specialist Cardiology 02/18/21 Rosalva Stern PA-C [address] [place] [address] Specialist Cardiology 02/18/21 documented as of this encounter
--- OUTSIDE RECORDS SUMMARY | 2025-06-04 17:23 | XMS_ITS | Encounter Summary ---
Author Organization [employer] [facility] Prior to 2024 Address [address] [place] [address] Care Team Providers Care Soap Boiler Name Role Phone Timmy-Azalia Recinos MD Primary Care Provider Unavailable Shaw Cervantes MD Unavailable [phone] Ryan Jenkins MD Unavailable [phone] Rosalva Stern PA-C Unavailable Charbel Poe Primary Care Provider Unavailabl e Encounter Details Date Type Department Care Team Description 11/22/2017 Yield Loss Inspector Report Medical Records [address] [place] [id number] [place] [address] Social History Tobacco Use Types Packs/Day Years [...] on filedocumented in this encounter Care Teams Soap Boiler Relationship Specialty Start Date End Date Azalia Esposito MD PCP - General Internal Medicine 12/02/1502/20/21 Charbel Poe [address] [address] PCP - General Internal Medicine 02/21/21 Shaw Cervantes MD [address] [place] [address] Specialist Cardiovascular Disease 02/18/21 Ryan Jenkins MD [address] [place] [address] Specialist Cardiology 02/18/21 Rosalva Stern PA-C [address] [place] [address] Specialist Cardiology 02/18/21 documented as of this encounter
--- OUTSIDE RECORDS SUMMARY | 2025-06-04 17:23 | XMS_ITS | Encounter Summary ---
Author Organization [facility] [facility] Prior to 2024 Address [address] [place] [address] Care Team Providers Care Nursing Techn Name Role Phone [place]-Azalia Recinos MD Primary Care Provider Unavailable Shaw Cervantes MD Unavailable [phone] Ryan Jenkins MD Unavailable [phone] Rosalva Stern PA-C Unavailable Charbel Poe Primary Care Provider Unavailthuan e Encounter Details Date Type Department Care Team Description 08/20/2020 Refill Cardio PVC POC 154 300 [facility] [address] [place] [address] Rosalva Stern PA-C [address] [place] [id number] Social History Tobacco Use Types Packs/Day Years [...] 08/20/2020 11:06 AM EST Incoming erx from [facility] for mag ox qd. Rx renewed. Last level from December 2019, 2.3 documented in this encounter Plan of Treatment Not on file documented as of this encounter Visit Diagnoses Not on filedocumented in this encounter Care Teams Nursing Techn Relationship Specialty Start Date End Date [place]-Azalia Recinos MD PCP - General Internal Medicine 12/02/1502/20/21 Charbel Poe [address] [place] [address] PCP - General Internal Medicine 02/21/21 Shaw Cervantes MD [address] [place] [address] Specialist Cardiovascular Disease 02/18/21 Ryan Jenkins MD [address] [place] [address] Specialist Cardiology 02/18/21 Rosalva Stern PA-C [address] [place] [address] Specialist Cardiology 02/18/21 documented as of this encounter
--- OUTSIDE RECORDS SUMMARY | 2025-06-04 17:23 | XMS_ITS | Encounter Summary ---
Author Organization [facility] Prior to 2024 Address [address] [place] [address] Care Team Providers Care Scroll Assembler Name Role Phone Azalia Esposito MD Primary Care Provider Unavailable Shaw Cervantes MD Unavailable [phone] Ryan Jenkins MD Unavailable [phone] Rosalva Stern PA-C Unavailable Charbel Poe Primary Care Provider Unavailabl e Encounter Details Date Type Department Care Team Description 02/09/2017 Print Operator Report Medical Records [address] [place] [address] Yara Luna [address] [place] [address] [phone] (Work) Social History Tobacco Use Types Packs/Day Years [...] on filedocumented in this encounter Care Teams Scroll Assembler Relationship Specialty Start Date End Date Azalia Esposito MD PCP - General Internal Medicine 12/02/1502/20/21 Charbel Poe [address] [place] [address] PCP - General Internal Medicine 02/21/21 Shaw Cervantes MD [address] [place] [address] Specialist Cardiovascular Disease 02/18/21 Ryan Jenkins MD [address] [place] [address] Specialist Cardiology 02/18/21 Rosalva Stern PA-C [address] [place] [address] Specialist Cardiology 02/18/21 documented as of this encounter
--- OUTSIDE RECORDS SUMMARY | 2025-06-04 17:23 | XMS_ITS | Encounter Summary ---
Author Organization [employer] [facility] Prior to 2024 Address [address] [place] [address] Care Team Providers Care Thoracic Surgeon Name Role Phone Shaw Cervantes MD Unavailable [phone] Ryan Jenkins MD Unavailable Rosalva Stern PA-C Unavailable Charbel Poe Primary Care Provider Unavailabl e Encounter Details Date Type Department Care Team Description 01/30/2022 Motion And Time Study Teacher Report Medical Records [address] [place] [address] Agnieszka Zapata MD [address] [place] [address] [address] [place], [place] [id number] Social History Tobacco Use Types Packs/Day Years [...] on filedocumented in this encounter Care Teams Thoracic Surgeon Relationship Specialty Start Date End Date Charbel Poe [address] [place] [address] PCP - General Internal Medicine 02/21/21 Shaw Cervantes MD 2 [facility] [address] [place], [place] [address] Specialist Cardiovascular Disease 02/18/21 Ryan Jenkins MD [address] [place] [address] Specialist Cardiology 02/18/21 Rosalva Stern PA-C [address] [place] [address] Specialist Cardiology 02/18/21 documented as of this encounter
--- OUTSIDE RECORDS SUMMARY | 2025-06-04 17:23 | XMS_ITS | Encounter Summary ---
Author Organization [employer] [facility] Prior to 2024 Address [address] [place] [address] Care Team Providers Care Director Of Assisted Living Name Role Phone Azalia Esposito MD Primary Care Provider Unavailable Shaw Cervantes MD Unavailable [phone] Ryan Jenkins MD Unavailable [phone] Rosalva Stern PA-C Unavailable Charbel Poe Primary Care Provider Unavailabl e Reason for Visit * Reason Onset Date Comments VNA Call 10/03/2019 Encounter Details Date Type Department Care Team Description 10/03/2019 Telephone Adult [address] [address] Azaila Esposito MD VNA Call Social History Tobacco [...] in this encounter Care Teams Director Of Assisted Living Relationship Specialty Start Date End Date Azalia Esposito MD PCP - General Internal Medicine 12/02/1502/20/21 Charbel Poe [address] [place] [address] PCP - General Internal Medicine 02/21/21 Shaw Cervantes MD [address] [place] [address] Specialist Cardiovascular Disease 02/18/21 Ryan Jenkins MD [address] [place] [address] Specialist Cardiology 02/18/21 Rosalva Stern PA-C [address] [facility] [address] [place] [address] Specialist Cardiology 02/18/21 documented as of this encounter
--- OUTSIDE RECORDS SUMMARY | 2025-06-04 17:23 | XMS_ITS | Encounter Summary ---
Author Organization [employer] [facility] Prior to 2024 Address [address] [place] [address] Care Team Providers Care Objective C Developer Name Role Phone Azalia Esposito MD Primary Care Provider Unavailable Shaw Cervantes MD Unavailable [phone] Ryan Jenkins MD Unavailable [phone] Rosalva Stern PA-C Unavailable Charbel Poe Primary Care Provider Unavailabl e Encounter Details Date Type Department Care Team Description 09/28/2019 Certified Histologic Technician Report Medical Records [address] [place] [address] Shaw Cervantes MD [address] [place] [address] Social History Tobacco Use Types Packs/Day Years [...] on filedocumented in this encounter Care Teams Objective C Developer Relationship Specialty Start Date End Date Azalia Esposito MD PCP - General Internal Medicine 12/02/1502/20/21 Charbel Poe [address] [place] [address] PCP - General Internal Medicine 02/21/21 Shaw Cervantes MD [address] [place] [address] Specialist Cardiovascular Disease 02/18/21 Ryan Jenkins MD [address] [place] [address] Specialist Cardiology 02/18/21 Rosalva Stern PA-C [address] [place] [address] Specialist Cardiology 02/18/21 documented as of this encounter
--- OUTSIDE RECORDS SUMMARY | 2025-06-04 17:23 | XMS_ITS | Encounter Summary ---
Author Organization [employer] [facility] Prior to 2024 Address [address] [place] [address] Care Team Providers Care Medical Technician Assistant Name Role Phone Homer-Azalia Recinos MD Primary Care Provider Unavailable Shaw Cervantes MD Unavailable [phone] Ryan Jenkins MD Unavailable [phone] Rosalva Stern PA-C Unavailable Charbel Poe Primary Care Provider Unavailabl e Reason for Referral * EXTERNAL (Priority) - Authorized/Booked Specialty Diagnoses / Procedures Referred By Contac t Referred To Contact Pulmonology Procedures REFERRAL TO PULMONOLOGY Angel Shay PA-C [address] [place] [address] Calos Almeida MD [address] [place] [id number] Referral ID Status Reason Start Date Expiration Date V isits Requested Visits Authorized SEE NOTE Authorized/B ooked 11/27/2016 03/11/2017 1 1 Encounter Details Date Type Department Care Team Description 11/24/2016 Telephone Adult Medicine - [place] [address] [place] [address] Angel Shay PA-C Social History Tobacco Use [...] on filedocumented in this encounter Care Teams Medical Technician Assistant Relationship Specialty Start Date End Date Homer-Azalia Recinos MD PCP - General Internal Medicine 12/02/1502/20/21 Charbel Poe [address] [address] PCP - General Internal Medicine 02/21/21 Shaw Cervantes MD [address] [facility] [address] [place] [address] Specialist Cardiovascular Disease 02/18/21 Ryan Jenkins MD 300 [facility] [address] [place] [address] Specialist Cardiology 02/18/21 Rosalva Stern PA-C 300 [facility] [address] [place] [address] Specialist Cardiology 02/18/21 documented as of this encounter
--- OUTSIDE RECORDS SUMMARY | 2025-06-04 17:23 | XMS_ITS | Encounter Summary ---
Author Organization [facility] Prior to 2024 Address [address] [place] [address] Care Team Providers Care Earth Moving Technician Name Role Phone Timmy-Azalia Recinos MD Primary Care Provider Unavailable Shaw Cervantes MD Unavailable [phone] Ryan Jenkins MD Unavailable [phone] Rosalva Stern PA-C Unavailable Charbel Poe Primary Care Provider Unavailabl e Encounter Details Date Type Department Care Team Description 02/07/2020 Hospital Medical Records [address] [place] [address] Ryan Jenkins MD [address] [address] Social History Tobacco Use Types Packs/Day Years [...] on filedocumented in this encounter Care Teams Earth Moving Technician Relationship Specialty Start Date End Date Azalia Esposito MD PCP - General Internal Medicine 12/02/1502/20/21 Charbel Poe [address] [address] PCP - General Internal Medicine 02/21/21 Shaw Cervantes MD [address] [place] [address] Specialist Cardiovascular Disease 02/18/21 Ryan Jenkins MD [address] [place] [address] Specialist Cardiology 02/18/21 Rosalva Stern PA-C [address] [place] [address] Specialist Cardiology 02/18/21 documented as of this encounter
--- OUTSIDE RECORDS SUMMARY | 2025-06-04 17:23 | XMS_ITS | Encounter Summary ---
Author Organization [employer] [facility] Prior to 2024 Address [address] [place] [address] Care Team Providers Care Legal Officer Name Role Phone Timmy-Azalia Recinos MD Primary Care Provider Unavailable Shaw Cervantes MD Unavailable [phone] Ryan Jenkins MD Unavailable [phone] Rosalva Stern PA-C Unavailable Charbel Poe Primary Care Provider Unavailabl e Encounter Details Date Type Department Care Team Description 09/14/2018 Business Doc Medical Records [address] [place] [address] Abstract, Provider Social History Tobacco Use Types [...] on filedocumented in this encounter Care Teams Legal Officer Relationship Specialty Start Date End Date Azalia Esposito MD PCP - General Internal Medicine 12/02/1502/20/21 Charbel Poe [address] [address] PCP - General Internal Medicine 02/21/21 Shaw Cervantes MD [address] [place] [address] Specialist Cardiovascular Disease 02/18/21 Ryan Jenkins MD [address] [place] [address] Specialist Cardiology 02/18/21 Rosalva Stern PA-C [address] [place] [address] Specialist Cardiology 02/18/21 documented as of this encounter
--- OUTSIDE RECORDS SUMMARY | 2025-06-04 17:23 | XMS_ITS | Encounter Summary ---
Author Organization [email or web address] [facility] Prior to 2024 Address [address] [place] [address] Care Team Providers Care Farm Adviser Name Role Phone Timmy-Azalia Recinos MD Primary Care Provider Unavailable Shaw Cervantes MD Unavailable [phone] Ryan Jenkins MD Unavailable [phone] Rosalva Stern PA-C Unavailable Charbel Poe Primary Care Provider Unavailabl e Encounter Details Date Type Department Care Team Description 11/10/2019 Hospital Medical Records [address] [place] [address] Yasmeen Murrell Social History Tobacco Use Types [...] on filedocumented in this encounter Care Teams Farm Adviser Relationship Specialty Start Date End Date Azalia Esposito MD PCP - General Internal Medicine 12/02/1502/20/21 Charbel Poe [address] [place] [address] PCP - General Internal Medicine 02/21/21 hSaw Cervantes MD [address] [place] [address] [address] [place] [address] Specialist Cardiovascular Disease 02/18/21 Ryan Jenkins MD [address] [place] [address] Specialist Cardiology 02/18/21 Rosalva Setrn PA-C [address] [facility] [address] [place] [address] Specialist Cardiology 02/18/21 documented as of this encounter
--- OUTSIDE RECORDS SUMMARY | 2025-06-04 17:23 | XMS_ITS | Encounter Summary ---
Author Organization [facility] [facility] Prior to 2024 Address [address] [place] [address] Care Team Providers Care Box Fabricator Name Role Phone Timmy-Azalia Recinos MD Primary Care Provider Unavailable Shaw Cervantes MD Unavailable [phone] Ryan Jenkins MD Unavailable [phone] Rosalva Stern PA-C Unavailable Charbel Poe Primary Care Provider Unavailabl e Encounter Details Date Type Department Care Team Description 12/20/2019 Veterinary Medicine Teacher Report Medical Records [address] [place] [id number] [place] [address] Social History Tobacco Use Types Packs/Day Years [...] on filedocumented in this encounter Care Teams Box Fabricator Relationship Specialty Start Date End Date Azalia Esposito MD PCP - General Internal Medicine 12/02/1502/20/21 Charbel Poe [address] [address] PCP - General Internal Medicine 02/21/21 Shaw Cervantes MD [address] [place] [address] Specialist Cardiovascular Disease 02/18/21 Ryan Jenkins MD [address] [place] [address] Specialist Cardiology 02/18/21 Rosalva Stern PA-C [address] [place] [address] Specialist Cardiology 02/18/21 documented as of this encounter
--- OUTSIDE RECORDS SUMMARY | 2025-06-04 17:23 | XMS_ITS | Encounter Summary ---
Author Organization [facility] [employer] [facility] Prior to 2024 Address [address] [place] [address] Care Team Providers Care Regrinder Name Role Phone [place]-Azalia Recinos MD Primary Care Provider Unavailable Shaw Cervantes MD Unavailable [phone] Ryan Jenkins MD Unavailable [phone] Rosalva Stern PA-C Unavailable Charbel Poe Primary Care Provider Unavailabl e Reason for Visit * Reason Onset Date Comments Medical Records 08/02/2020 Encounter Details Date Type Department Care Team Description 08/02/2020 Telephone Medical Records [address] [place] [address] Abstract, Provider Medical Records Social History Tobacco [...] 08/02/2020 4:39 PM EST Faxed records to [facility] Att: Kirit Castro For New Appt. [phone]/ [phone] documented in this encounter Plan of Treatment Not on file documented as of this encounter Visit Diagnoses Not on filedocumented in this encounter Care Teams Regrinder Relationship Specialty Start Date End Date [place]-Azalia Recinos MD PCP - General Internal Medicine 12/02/1502/20/21 Charbel Poe [address] [place] [address] PCP - General Internal Medicine 02/21/21 Shaw Cervantes MD [address] [place] [address] Specialist Cardiovascular Disease 02/18/21 Ryan Jenkins MD [address] [place] [address] Specialist Cardiology 02/18/21 Rosalva Stern PA-C [address] [place] [address] Specialist Cardiology 02/18/21 documented as of this encounter
--- OUTSIDE RECORDS SUMMARY | 2025-06-04 17:23 | XMS_ITS | Encounter Summary ---
Author Organization [employer] [facility] Prior to 2024 Address [address] [place] [address] Care Team Providers Care Research Anthropologist Name Role Phone Azalia Esposito MD Primary Care Provider Unavailable Shaw Cervantes MD Unavailable [phone] Ryan Jenkins MD Unavailable [phone] Rosalva Stern PA-C Unavailable Charbel Poe Primary Care Provider Unavailabl e Encounter Details Date Type Department Care Team Description 10/26/2016 Barrel Waterer Report Medical Records [address] [place] [address] Caron Gomez PA-C [address] [address] Social History Tobacco Use Types [...] filedocumented in this encounter Care Teams Research Anthropologist Relationship Specialty Start Date End Date Azalia Esposito MD PCP - General Internal Medicine 12/02/1502/20/21 Charbel Poe [address] [place] [address] PCP - General Internal Medicine 02/21/21 Shaw Cervantes MD [address] [place] [address] Specialist Cardiovascular Disease 02/18/21 Ryan Jenkins MD [address] [place] [address] Specialist Cardiology 02/18/21 Rosalva Stern PA-C [address] [place] [address] Specialist Cardiology 02/18/21 documented as of this encounter
--- OUTSIDE RECORDS SUMMARY | 2025-06-04 17:23 | XMS_ITS | Encounter Summary ---
Author Organization [facility] [facility] Prior to 2024 Address [address] [place] [address] Care Team Providers Care Vp Rheumatology Name Role Phone [place]-Azalia Recinos MD Primary Care Provider Unavailable Shaw Cervantes MD Unavailable Ryan Jenkins MD Unavailable [phone] Rosalva Stern PA-C Unavailable Charbel Poe Primary Care Provider Unavailabl e Encounter Details Date Type Department Care Team Description 05/10/2019 Telephone Adult [address] [address] Laura Rucker PA-C Social History Tobacco Use [...] Reid M.A. - 05/10/2019 1:42 PM EST [phone] (home) [phone] (work) Lvm for pt to return call. [...] filedocumented in this encounter Care Teams Vp Rheumatology Relationship Specialty Start Date End Date [place]-Azalia Recinos MD PCP - General Internal Medicine 12/02/1502/20/21 Charbel Poe 300 [facility] [address] [place] [address] PCP - General Internal Medicine 02/21/21 Shaw Cervantes MD [address] [place] [address] Specialist Cardiovascular Disease 02/18/21 Ryan Jenkins MD [address] [place] [address] Specialist Cardiology 02/18/21 Rosalva Stern PA-C [address] [place] [address] Specialist Cardiology 02/18/21 documented as of this encounter
--- OUTSIDE RECORDS SUMMARY | 2025-06-04 17:23 | XMS_ITS | Encounter Summary ---
Author Organization [employer] [facility] Prior to 2024 Address [address] [place] [address] Care Team Providers Care Administrative Accountant Name Role Phone Timmy-Azalia Recinos MD Primary Care Provider Unavailable Shaw Cervantes MD Unavailable [phone] Ryan Jenkins MD Unavailable [phone] Rosalva Stern PA-C Unavailable Charbel Poe Primary Care Provider Unavailabl e Encounter Details Date Type Department Care Team Description 08/09/2019 [facility] Medical Records [address] [place] [address] Johan Barragan MD Social History Tobacco Use [...] on filedocumented in this encounter Care Teams Administrative Accountant Relationship Specialty Start Date End Date Azalia Esposito MD PCP - General Internal Medicine 12/02/1502/20/21 Charbel Poe 300 [facility] [address] [place] [address] PCP - General Internal Medicine 02/21/21 Shaw Cervantes MD [address] [place] [address] Specialist Cardiovascular Disease 02/18/21 Ryan Jenkins MD [address] [place] [address] Specialist Cardiology 02/18/21 Rosalva Stern PA-C [address] [place] [address] Specialist Cardiology 02/18/21 documented as of this encounter
--- OUTSIDE RECORDS SUMMARY | 2025-06-04 17:23 | XMS_ITS | Encounter Summary ---
Author Organization [employer] [facility] Prior to 2024 Address [address] [place] [address] Care Team Providers Care Crate Repairer Name Role Phone Timmy-Azalia Recinos MD Primary Care Provider Unavailable Shaw Cervantes MD Unavailable [phone] Ryan Jenkins MD Unavailable [phone] Rosalva Stern PA-C Unavailable Charbel Poe Primary Care Provider Unavailabl e Encounter Details Date Type Department Care Team Description 08/26/2018 Journal Box Inspector Report Medical Records [address] [place] [address] Social History Tobacco Use Types Packs/Day Years [...] on filedocumented in this encounter Care Teams Crate Repairer Relationship Specialty Start Date End Date Azalia Esposito MD PCP - General Internal Medicine 12/02/1502/20/21 Charbel Poe [address] [address] PCP - General Internal Medicine 02/21/21 Shaw Cervantes MD [address] [place] [address] Specialist Cardiovascular Disease 02/18/21 Ryan Jenkins MD [address] [place] [address] Specialist Cardiology 02/18/21 Rosalva Stern PA-C [address] [place] [address] Specialist Cardiology 02/18/21 documented as of this encounter
--- OUTSIDE RECORDS SUMMARY | 2025-06-04 17:23 | XMS_ITS | Encounter Summary ---
Author Organization [employer] [facility] Prior to 2024 Address [address] [place] [address] Care Team Providers Care Bulk Sealer Name Role Phone Timmy-Azalia Recinos MD Primary Care Provider Unavailable Shaw Cervantes MD Unavailable [phone] Ryan Jenkins MD Unavailable [phone] Rosalva Stern PA-C Unavailable Charbel Poe Primary Care Provider Unavailabl e Encounter Details Date Type Department Care Team Description 08/09/2019 [facility] Medical Records [address] [place] [address] Tez Coyle MD Social History Tobacco Use [...] on filedocumented in this encounter Care Teams Bulk Sealer Relationship Specialty Start Date End Date Azalia Esposito MD PCP - General Internal Medicine 12/02/1502/20/21 Charbel Poe [address] [place] [address] PCP - General Internal Medicine 02/21/21 Shaw Cervantes MD [address] [place] [address] [address] [place] [address] Specialist Cardiovascular Disease 02/18/21 Ryan Jenkins MD [address] [place] [address] Specialist Cardiology 02/18/21 Rosalva Stern PA-C [address] [place] [address] Specialist Cardiology 02/18/21 documented as of this encounter
--- OUTSIDE RECORDS SUMMARY | 2025-06-04 17:23 | XMS_ITS | Encounter Summary ---
Author Organization [employer] [facility] Prior to 2024 Address [address] [place] [address] Care Team Providers Care Mobile Qa Tester Name Role Phone Azalia Esposito MD Primary Care Provider Unavailable Azalia Esposito MD Primary Care Provider Unavailable Shaw Cervantes MD Unavailable [phone] Ryan Jenkins MD Unavailable [phone] Rosalva Stern PA-C Unavailable Charbel Poe Primary Care Provider Unavailabl e Encounter Details Date Type Department Care Team Description 01/02/2015 Hospital Medical Records [address] [place] [address] Sona Franco MD Social History Tobacco Use [...] on filedocumented in this encounter Care Teams Mobile Qa Tester Relationship Specialty Start Date End Date Azalia Esposito MD PCP - General Internal Medicine 12/02/1502/20/21 Azalia Esposito MD PCP - General 12/31/1411/30 Charbel Poe 300 [address] [place] [address] PCP - General Internal Medicine 02/21/21 Shaw Cervantes MD [address] [place] [address] Specialist Cardiovascular Disease 02/18/21 Ryan Jenkins MD 300 [facility] [address] [place] [address] Specialist Cardiology 02/18/21 Rosalva Stern PA-C 300 [facility] [address] [place] [address] Specialist Cardiology 02/18/21 documented as of this encounter
--- OUTSIDE RECORDS SUMMARY | 2025-06-04 17:23 | XMS_ITS | Encounter Summary ---
Author Organization [employer] [facility] Prior to 2024 Address [address] [place] [address] Care Team Providers Care Offset Duplicating Machine Operator Name Role Phone Timmy-Azalia Recinos MD Primary Care Provider Unavailable Shaw Cervantes MD Unavailable [phone] Ryan Jenkins MD Unavailable Rosalva Stern PA-C Unavailable Charbel Poe Primary Care Provider Unavailabl e Encounter Details Date Type Department Care Team Description 11/08/2019 Hospital Medical Records [address] [place], [place] [address] [place] [address] Social History Tobacco Use Types Packs/Day Years [...] on filedocumented in this encounter Care Teams Offset Duplicating Machine Operator Relationship Specialty Start Date End Date Azalia Esposito MD PCP - General Internal Medicine 12/02/1502/20/21 Charbel Poe [address] [place] [address] PCP - General Internal Medicine 02/21/21 Shaw Cervantes MD Medical [facility] [address] [place] [address] Specialist Cardiovascular Disease 02/18/21 Ryan Jenkins MD [address] [place] [address] Specialist Cardiology 02/18/21 Rosalva Stern PA-C [address] [facility] [address] [place] [address] Specialist Cardiology 02/18/21 documented as of this encounter
--- OUTSIDE RECORDS SUMMARY | 2025-06-04 17:23 | XMS_ITS | Encounter Summary ---
Author Organization [facility] [employer] [facility] Prior to 2024 Address [address] [place] [address] Care Team Providers Care Mounter Sousaphones Name Role Phone Azalia Esposito MD Primary Care Provider Unavailable Shaw Cervantes MD Unavailable [phone] Ryan Jenkins MD Unavailable [phone] Rosalva Stern PA-C Unavailable Charbel Poe Primary Care Provider Unavailabl e Reason for Referral * EXTERNAL (Routine) - Authorized/Booked Specialty Diagnoses / Procedures Referred By Desean dumont Referred To Contact Ophthalmology Procedures REFERRAL TO EXTERNAL OPHTHALMOLOGY Azalia Esposito MD [address] [place] [address] [facility] [address] [place] [address] Referral ID Status Reason Start Date Expiration Date V isits Requested Visits Authorized SEE NOTE Authorized/B ooked 09/26/2017 12/27/2017 1 1 Reason for Visit * Reason Onset Date Comments Training And Documentation Specialist Feedback 09/17/2017 Encounter Details Date Type Department Care Team Description 09/17/2017 Telephone [facility] [address] [place] [address] Azalia Esposito MD Training And Documentation Specialist Feedback Social History Tobacco Use Types Packs/Day [...] 2:39 PM EDT Spoke to optomology [place] they confirmed that Dr. Warner would have to have an outside department for optomolgy do this. * Telephone Encounter - Leonardo Coleman M.A. - 09/22/2017 11:17 AM EDT Called optomology in [place] BSR put message in with Dr. Warner's [...] optometry? Should he be seen by an evp chief exploration officer or do you need patient to come [...] If retro, date referral needs to start: NA Azalia Esposito Payor: SRIDHARCT/ FFS / Plan: BS MDCR-ADV HMO $20/$40 / Product Type: MEDICARE [id number] documented in this encounter Plan of Treatment Not on file documented as of this encounter Visit Diagnoses Not on filedocumented in this encounter Care Teams Mounter Sousaphones Relationship Specialty Start Date End Date Azalia Esposito MD PCP - General Internal Medicine 12/02/1502/20/21 Charbel Poe [address] [place] [address] [address] [place] [address] PCP - General Internal Medicine 02/21/21 Shaw Cervantes MD [address] [place] [address] Specialist Cardiovascular Disease 02/18/21 Ryan Jenkins MD [address] [place] [address] Specialist Cardiology 02/18/21 Rosalva Stern PA-C [address] [place] [address] Specialist Cardiology 02/18/21 documented as of this encounter
[2025-06-05 08:49] LABS: Prothrombin Time Whole Bld POC 13.5 sec (11.1-13.5); ~PT, ~INR - Anti Coag Clinic 1.1 (0.9-1.1)
== END 2025-06-04 14:34 | disposition home or self-care (01) ==
LOC: HO.ACS 13:52
PROVIDERS: PCP Internal Medicine; Visit Provider Internal Medicine Medical Oncology
DX: Z79.01 Long term (current) use of anticoagulants (principal)

== ENCOUNTER → 2025-06-06 10:05 | Outpatient (BNV) | payer MEDICARE, SELFPAY | PROVIDERS: PCP Internal Medicine; Visit Provider Internal Medicine | DX: Z45.018 Encounter for adjustment and management of other part of cardiac pacemaker (principal) | CPT/HCPCS: 93297 ==